=== PATIENT | female | born 1970 | race Caucasian/White ===

== ENCOUNTER 2023-01-24 13:41 | Outpatient (OUT) | payer OTHER, SELFPAY ==
--- NOTE | 2023-01-24 17:03 | CONS_ITS ---
CONSULTATION DATE: ??01/24/2023 TO:? Patience Jimenez M.D. HISTORY:? Patient returns today complaining of 2-5/10 pain in the right hip and buttock area.? She describes the pain as being dull, achy in character with a sharp component.? She describes a burning sensation and sensitivity to even light touch overlying the right hip and buttock area.? She reports the pain otherwise, in general, increased with activities such as standing and walking and performing transitioning maneuvers.? Patient feels most comfortable in the semi-recumbent position.? Denies any change in bowel and bladder habits or new sensorimotor changes in the lower extremities. MEDICATION:? Includes baclofen 10 mg pills, half a pill up to .b.i.d. EXAM:? Notable for patient having no clinical radiculopathy or myelopathy involving the lower extremities.? Patient had dysesthesia and hyperesthesia along the distribution of the right superior gluteal nerve with severe spasm of the right gluteus medius muscle.? IMPRESSION:? 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 RECOMMENDATIONS: ?I recommend physical therapy.? Increase the baclofen 10 mg pills, half a pill t.i.d.? We will see the patient back in the office in six weeks? time or sooner if needed. As part of providing excellent, safe, comprehensive care, the following was completed at our patient's visit: 1. A medication reconciliation and review to ensure accurate knowledge of current/active medications, including asking our patients to inform us about any [id number]-heulhoz medications or herbal remedies/nutritional supplements/alternative remedies. 2. A review to specifically ensure our patients have had annual screening for: elevated body mass index (BMI, see intake chart for exact total), tobacco use, screening for depression, and screening for unhealthy alcohol use.? When screening is concerning, patients are provided with education and the specific recommendation to discuss the concerning health issue and treatment options with their primary care provider. OSMIN
== END 2023-01-24 13:42 | disposition home or self-care (01) ==
LOC: PM 13:42
PROVIDERS: PCP Family Medicine; Visit Provider Anesthesiology Pain Medicine
DX: M25.551 Pain in right hip (principal); G89.29 Other chronic pain; G58.8 Other specified mononeuropathies; M62.838 Other muscle spasm
CPT/HCPCS: G0463

== ENCOUNTER 2023-01-25 15:32 | Outpatient (RCR) | payer OTHER, SELFPAY | END 2023-03-01 17:00 | disposition home or self-care (01) | LOC: PT 15:32 | PROVIDERS: PCP Family Medicine; Visit Provider Nurse Practitioner | DX: M47.816 Spondylosis without myelopathy or radiculopathy, lumbar region (principal) | CPT/HCPCS: 97110; 97140; 97161 ==

== ENCOUNTER 2023-02-01 08:03 | Emergency (ER) | payer OTHER, SELFPAY ==
[2023-02-01 08:10] VITALS: BP 159/95; PULSE 78; RESP 18; TEMP 36.5; O2SAT 98; BMI 23.0
--- NOTE | 2023-02-01 08:23 | PC.NURSE ---
Pt recently traveled to [place] by plane and drove back to [place]. Pt states on her way back they stopped at [place] and hiked. Pt is having bilateral calf pain at this time. pt states she is in shape and should not have this calf pain for this long. Pt concerned about blood clots in her calfs.
--- NOTE | 2023-02-01 08:24 | US_ITS ---
The [address] [address] Patient Name: BEATRIZ SMITH MRN: [id number] date: 1970 Sex: F Assigned Patient Location: ED.MAIN Current Patient Location: ER Accession/Order Number: [id number] Exam Date: 02/01/2023 08:40 Report Date: 02/01/2023 09:28 At the request of: AWILDA CAMPOS Procedure: US venous doppler LE BI ULTRASOUND OF BILATERAL LOWER EXTREMITY VENOUS SYSTEMS WITH DUPLEX, 02/01/2023 8:40 AM EDT INDICATION: Bilateral calf pain x3 days COMPARISON: No prior lower extremity ultrasound available for comparison at the time of this dictation. TECHNIQUE: Multi-planar real-time ultrasonography of the bilateral lower extremity venous systems using grayscale imaging supplemented by color Doppler. Augmentation and compression maneuvers were utilized as needed. FINDINGS: The saphenofemoral junction, common femoral, profunda femoral, superficial femoral, popliteal, posterior tibial, anterior tibial and peroneal veins are fully compressible with anterograde flow. Respiratory variation and waveform response to augmentation within normal limits. US/US venous doppler LE BI IMPRESSION: Negative for deep vein thrombosis in either lower extremity. Electronically authenticated by: DONA SANTOS Date: 02/01/2023 09:28
--- NOTE | 2023-02-01 08:25 | ED.EXTPRO1 ---
HPI - Extremity Problem General Chief complaint: Extremity Problem, Nontraumatic Stated complaint: lower extremity pain Time Seen by Provider: 02/01/23 08:20 Source: patient Mode of arrival: walk-in Limitations: no limitations History of Present Illness HPI Narrative: The patient to us after she had 40 hours trip driving from [place] and she started having bilateral calf pain, she did mention that she was not drinking enough water and she did stop in [place] of [place] But the patient mentioned that she exercise regularly and she usually does not get calf pain Related Data Home Medications Medication Instructions Recorded Confirmed baclofen 10 mg oral granules in 10 mg PO TID 02/01/23 02/01/23 packet Allergies Allergy/AdvReac Type Severity Reaction Status Date / Time No Known Drug Allergies Allergy Verified 02/01/23 08:16 Review of Systems ROS Status of ROS 10 or more systems reviewed and unremarkable except as noted in history and below Exam Narrative Exam Narrative: Nurses notes and vital signs reviewed and patient is not hypoxic. General: Well-appearing and in no apparent distress. Skin: Warm, dry, no pallor noted. No rash. Head: Normocephalic, atraumatic. Neck: Supple, non-tender. Eye: Pupils are equal, round and EOMI. No scleral icterus. Ears, Nose, Mouth, and Throat: TM are clear, no nasal mucosal hypertrophy. Oral mucosa is moist, no posterior oropharynx erythema, uvula is mid-line Cardiovascular: Regular Rate and Rhythm without murmur, gallop or rub. Respiratory: No accessory muscle use or respiratory distress. Lungs are clear to auscultation, no wheezing, rales or rhonchi Chest Wall: no tenderness Back: No midline thoracic or lumbar vertebral tenderness. No CVA tenderness Musculoskeletal: normal ROM, no calf or popliteal tenderness, no lower extremity edema/swelling GI: Abdomen is soft, non-distended. Normal bowel sounds. No masses appreciated. No tenderness to palpation. No rebound, guarding, or rigidity noted. Neurological: A&O x4. No cranial nerve dysfunction observed. No truncal ataxia. Moves all extremities. Sensation intact. Psychiatric: Cooperative and interactive. Normal mood and affect. Constitutional Vital Signs, click to edit/add: Last Vital Signs Temp 97.7 F 02/01/23 08:10 Pulse 78 02/01/23 08:10 Resp 18 02/01/23 08:10 BP 159/95 H 02/01/23 08:10 Pulse Ox 98 02/01/23 08:10 O2 Del Method Room Air 02/01/23 08:10 Course Vital Signs Vital signs: Vital Signs Temperature 97.7 F 02/01/23 08:10 Pulse Rate 78 02/01/23 08:10 Respiratory Rate 18 02/01/23 08:10 Blood Pressure 159/95 H 02/01/23 08:10 Pulse Oximetry 98 02/01/23 08:10 Oxygen Delivery Method Room Air 02/01/23 08:10 Temperature 97.7 F 02/01/23 08:10 Pulse Rate 78 02/01/23 08:10 Respiratory Rate 18 02/01/23 08:10 Blood Pressure 159/95 H 02/01/23 08:10 Pulse Oximetry 98 02/01/23 08:10 Oxygen Delivery Method Room Air 02/01/23 08:10 MDM - Extremity (Nontraumatic) MDM Narrative Medical decision making narrative: The patient ultrasound venous of lower extremity showed no acute pathology and the patient right now will be treated as supportive care for possible sprain with ibuprofen The patient was instructed on hydration The patient is to follow up with primary care physician in next 2-3 days or to return to the emergency department should any of the signs or symptoms worsen or new symptoms develop. The patient agrees with the following Diagnosis and Treatment plan and the patient will be discharged home. Discharge Plan Discharge Chief Complaint: Extremity Problem, Nontraumatic Clinical Impression: Bilateral calf pain Patient Disposition: Home, Self-Care Time of Disposition Decision: 09:56 Condition: Good Mode of Transportation: Private Vehicle Prescriptions / Home Meds: No Action baclofen 10 mg granules in packet 10 mg PO TID Instructions: Musculoskeletal Pain (ED) Stand Alone Forms: Portal Instructions Referrals: Patience Jimenez MD [Primary Care Provider] - 1 week Discharge Date/Time: 02/01/23 10:11
== END 2023-02-01 10:11 | disposition home or self-care (01) ==
PROVIDERS: Emergency Provider Emergency Medicine; PCP Family Medicine
DX: M79.662 Pain in left lower leg (principal); M79.661 Pain in right lower leg
CPT/HCPCS: 93970; 99284

== ENCOUNTER 2023-03-16 21:42 | Outpatient (REF) | payer OTHER, SELFPAY ==
[2023-03-21 15:10] LABS: Age Gdln ACOG Testing Note (.); HPV Aptima Negative (Negative); IGP, Aptima HPV, rfx 16/18,45 Note (.)
== END 2023-03-16 21:43 | disposition home or self-care (01) ==
LOC: LAB 21:42
PROVIDERS: PCP Family Medicine; Visit Provider Physician Assistant
DX: Z01.419 Encounter for gynecological examination (general) (routine) without abnormal findings (principal)
CPT/HCPCS: 87624; G0145

== ENCOUNTER 2023-04-11 13:55 | Outpatient (OUT) | payer OTHER, SELFPAY ==
--- NOTE | 2023-04-11 | CONS_ITS ---
CONSULTATION DATE: ??04/11/2023 TO:? Patience Jimenez M.D. CHIEF COMPLAINT:? Includes right sided hip pain, buttock pain.? Patient reports the pain as being 2-7/10, right buttock and gluteal area, described as a burning type of pain with a sharp component, increased with activities such as standing, walking and performing transitioning maneuvers.? She feels most comfortable in the semi-recumbent position.? Denies any change in bowel and bladder habits or new sensorimotor changes in the lower extremities EXAMINATION:? Notable for patient having positive right sided FABERs.? Dysesthesia and hypoesthesia were noted over the distribution of the right superior gluteal nerve and a fair amount of myofascial spasm involving the right gluteus medius muscle.? IMPRESSION:? Our impression is patient has chronic pain secondary to right hip joint related pain, right superior gluteal nerve neuritis and myofascial dysfunction.? RECOMMENDATIONS:? I have increased the baclofen, 10 mg pills, one pill t.i.d.? Proceed with a right hip x-ray and a diagnostic right superior gluteal nerve injection under fluoroscopic guidance. As part of providing excellent, safe, comprehensive care, the following was completed at our patient's visit: 1. A medication reconciliation and review to ensure accurate knowledge of current/active medications, including asking our patients to inform us about any vlrr-fwt-jhijsay medications or herbal remedies/nutritional supplements/alternative remedies. 2. A review to specifically ensure our patients have had annual screening for: elevated body mass index (BMI, see intake chart for exact total), tobacco use, screening for depression, and screening for unhealthy alcohol use.? When screening is concerning, patients are provided with education and the specific recommendation to discuss the concerning health issue and treatment options with their primary care provider. OSMIN
== END 2023-04-11 13:56 | disposition home or self-care (01) ==
LOC: PM 13:55
PROVIDERS: PCP Family Medicine; Visit Provider Anesthesiology Pain Medicine
DX: M25.551 Pain in right hip (principal); M16.11 Unilateral primary osteoarthritis, right hip; G89.29 Other chronic pain; G58.8 Other specified mononeuropathies
CPT/HCPCS: 73502; G0463

== ENCOUNTER 2023-04-11 14:46 | Outpatient (OUT) | payer OTHER, SELFPAY ==
--- NOTE | 2023-04-11 15:18 | XR_ITS ---
The [address] [address] Patient Name: BEATRIZ SMITH MRN: [id number] date: 1970 Sex: F Assigned Patient Location: [facility] Current Patient Location: Accession/Order Number: [id number] Exam Date: 04/11/2023 15:10 Report Date: 04/11/2023 21:34 At the request of: RACHEL HUERTA Procedure: XR hip RT min 2V EXAMINATION: XR hip RT min 2V, 04/11/2023 8:31 PM CDT INDICATION: Right hip pain TECHNIQUE: 3 views COMPARISON(S): None available FINDINGS: There is no fracture or malalignment. Mild osteoarthritis of the right hip joint without significant joint space loss. Normal bone mineralization. Pubic symphysis and right sacroiliac joint are congruent with mild degenerative changes. Subtle soft tissue mineralization near the greater trochanter and ischium which could represent hydroxyapatite deposition or chronic tendinopathy. XR/XR hip RT min 2V IMPRESSION: No acute osseous findings. Mild right hip osteoarthritis and other chronic findings as detailed above. Electronically authenticated by: JOSÉ FORREST Date: 04/11/2023 21:34
== END 2023-04-11 14:47 | disposition home or self-care (01) ==
LOC: RAD 14:49
PROVIDERS: PCP Family Medicine; Visit Provider Anesthesiology Pain Medicine
DX: M25.551 Pain in right hip (principal); M16.11 Unilateral primary osteoarthritis, right hip
CPT/HCPCS: 73502

== ENCOUNTER 2023-04-25 09:00 | Day surgery (SDC) | payer OTHER, SELFPAY ==
[2023-04-25 09:22] VITALS: BP 143/90; PULSE 78; RESP 16; TEMP 36.5; O2SAT 99
[2023-04-25] MEDS: BUPIVACAINE HCL 0.25% PF 25 MG/10 ML VIAL 4 ML INJ (10:36)
--- NOTE | 2023-04-25 10:49 | W.PM.PROCNOT ---
Date of procedure: 04/25/23 Pre-op diagnosis: Right Superior Gluteal Neuritis Post-op diagnosis: same as pre-op Procedure: Right Superior Gluteal nerve injection, diagnostic Performed under fluoroscopic guidance Immediate complications none Anesthesia: none Solution used for injection: In each syringe, 2 milliliters 0.25% Marcaine 2.5 mL is used for injection for each side Time out process compliant After informed consent obtained patient was brought to the procedure room placed in the prone position skin overlying the area was prepped and draped in a sterile fashion using betadine. 25 gauge spinal needle Insert over each of the target areas identified in fluoroscopy corresponding needles were advanced Under fluoroscopic guidance until the target/targets encountered , no indication of intravascular or Intraneuronal needle tip placement. Solution injected .needles removed post procedurally. patient transferred to recovery room in stable condition to be discharged home after meeting criteria Anesthesia: Local Surgeon: Jose Guadalupe Costa Condition: stable
== END 2023-04-25 10:40 | disposition home or self-care (01) ==
LOC: SURGOUT 09:00
PROVIDERS: PCP Family Medicine; Visit Provider Anesthesiology Pain Medicine
DX: G58.8 Other specified mononeuropathies (principal)
CPT/HCPCS: 64450; 77002

== ENCOUNTER 2023-05-10 08:45 | Outpatient (OUT) | payer OTHER, SELFPAY ==
--- NOTE | 2023-05-10 09:14 | P.CN_ITS ---
Consult Note: HPI Data of Consult Patient: known to practice within the last 3 years Requesting Physician: Skye Marc NP Primary Care Provider: Patience Jimenez MD Consult Narrative Reason for consult: f/u Narrative: Socorro Gallagher a pleasant 52 year old female presents for evaluation and management of right buttock and intermittent right calf pain. Today rating pain 1-2 burning discomfort. Pain is relieved with sleep, standing/walking, and OTC naproxen. Pain is worse with lying down and sitting. Patient had 50% ongoing relief in right buttock from superior gluteal nerve block. cc:: CC: Skye Marc NP Review of Systems ROS Status of ROS 10 or more systems reviewed and unremarkable except as noted in history and below PFSH PFSH Surgical History History of foot surgery ?Z98.890 - Other specified postprocedural states (ICD-10) History of hysterectomy ?Z90.710 - Acquired absence of both cervix and uterus (ICD-10) Previous section ?Z98.891 - History of uterine scar from previous surgery (ICD-10) Meds Home Medications and Allergies Home Medications Medication Instructions Recorded Confirmed Type baclofen 10 mg oral granules in 10 mg PO TID 02/01/23 04/25/23 History packet Allergies Allergy/AdvReac Type Severity Reaction Status Date / Time No Known Drug Allergies Allergy Verified 04/25/23 09:20 Exam Constitutional Documenting provider has reviewed patient's vital signs: yes Common normals: no apparent distress, oriented x3, healthy appearing, alert and well nourished General appearance: cooperative HENMT Common normals: normocephalic, hearing grossly normal bilaterally and moist oral mucous membranes Head and scalp: normocephalic Eye Common normals: PERRL Pupil: PERRL Neck & C-Spine Common normals: full ROM General: normal visual inspection Chest Common normals: inspection of chest normal Respiratory Common normals: normal respiratory effort, no retractions and no use of accessory muscles Back & Pelvis Common normals: thoracic and lumbar spine normal to inspection, thoraco-lumbar ROM normal and straight leg raise negative bilaterally Other: pain over right piriformis muscle group, worse with deep palpation no radiculopathy negative facet loading no back pain Back image (female): 1. Neuro Common normals: oriented x3, CN's II-XII intact bilaterally, moves all extremities, no focal motor deficits, no sensory deficits noted and deep tendon reflexes 2+ bilaterally Sensorium/orientation: alert Motor exam: strength 5/5 throughout and no movement abnormalities noted Psych Common normals: mental status grossly normal, thought process normal, cooperative, affect normal, speech normal and activity/motor behavior normal Speech: normal speech Thought process: normal thought process Results Additional Findings Additional findings: I have checked an [facility] report on this patient today and there are no ab errancies noted in the prescribing history.?? A drug screen was completed and reviewed within the last year, and if there has not been a drug screen completed we ordered one today to monitor higher risk, state monitored pain medication use. As part of providing excellent, safe, comprehensive care, the following was completed at our patient's visit: 1. A medication reconciliation and review to ensure accurate knowledge of current/active medications, including asking our patients to inform us about any [id number] medications or herbal remedies/nutritional supplements/alternative remedies. 2. A review to specifically ensure our patients have had annual screening for: elevated body mass index (BMI), tobacco use, screening for depression, and screening for unhealthy alcohol use. When screening is concerning, patients are provided with education and the specific recommendation to discuss the concerning health issue and treatment options with their primary care provider. Assessment and Plan Assessment and Plan (1) Piriformis syndrome of right side: (2) Neuritis: Plan continue OTC naproxen PRN continue HEP, will talk to Physical therapist about PS exercises. Was doing these in PT fu prn
== END 2023-05-10 08:46 | disposition home or self-care (01) ==
LOC: PM 08:52
PROVIDERS: PCP Family Medicine; Visit Provider Nurse Practitioner
DX: G57.01 Lesion of sciatic nerve, right lower limb (principal); M79.2 Neuralgia and neuritis, unspecified
CPT/HCPCS: G0463

== ENCOUNTER 2023-10-13 08:01 | Outpatient (OUT) | payer OTHER, SELFPAY ==
--- OUTSIDE RECORDS SUMMARY | 2023-10-13 08:19 | XMS_ITS | CCD ---
Author Organization [facility] Care Team Providers Care Senior [employer]form[employer] Developer Name Role Phone DR PATIENCE MORTENSEN Primary Care Unavailable LAKSHMIPATHY ., NARENDALBARO Admitting Mariella vailable LAKAURELIANOPATHY ., NARENDREINAATH Consulting Mariella vailable DEANAN ., JOSE GUADALUPE Attending Mariella LORRI Rai Admitting Unavailable LORRI BERRY Attending Unavailable DR CHRISTINA ROBLERO Consulting Unavailable DR PATIENCE MORTENSEN Primary Care Unavailable LORRI BERRY Consulting Unavailable Unavailable Primary Care Provider UnavailMD Patience Ramirez Primary Care Provider MD Jose Guadalupe Costa Attending Provider Unavailable LINDA MUÑOZ Referring Unavailable MARSHA LANDA Attending Unavailable Oscar MCKEON Attending Unavailable Jose Guadalupe Costa Attending Unava ilable Deanna, Jose Guadalupe Admitting Unava ilable Patience Mortensen Primary Care Unavailable Medications Current Medications Medication Drug Class(es) Dates Sig (Normalized) Sig (Original) busPIRone hydrochloride 5 mg oral tablet (2 sources) Start: 09-14-2023 End: 10-12-2023 take 5 mg by mouth twice daily Buspirone Active 5 MG PO Twice daily 180 90 October 12, 2023 8:51am estradiol 0.5 mg oral tablet (1 source) Estrogen Start: 09-14-2023 take 0.5 mg by mouth once daily Estradiol Active 0.5 MG PO Daily September 14, 2023 1:00am LORazepam 0.5 mg oral tablet (3 sources) Benzodiazepine Start: 09-14-2023 take 1 tablet by mouth once daily Lorazepam (Ativan) 0.5 mg tablet Active 0.5 MG PO Daily 15 15 September 14, 2023 1:00am Start: 01-30-2023 LORazepam (ATI VAN) 0.5 mg Take 0.5 mg by mouth. 0 01/30/2023 Active Comment on above: Take 0.5 mg by mouth . predniSONE 50 mg oral tablet (1 source) Start: 03-16-2023 End: 03-21-2023 predniSONE (DELTASONE) 50 mg Take 50 mg by mouth. 0 03/16/2023 03/21/2023 Active Comment on above: Take 50 mg by mouth. Completed/Discontinued Medications Medication Drug Class(es) Dates Sig (Normalized) Sig (Original) baclofen 10 mg oral tablet (3 sources) gamma-Aminobutyri c Acid-ergic Agonist Start: 09-14-2023 End: 10-12-2023 take 10 mg by mouth once daily Baclofen Discontinued 10 MG PO Daily September 14, 2023 1:00am October 12, 2023 8:30am Start: 03-07-2023 take 0.5 tablet by m outh three times daily baclofen 10 mg tablet TAKE 1/2 TABLET BY MOUTH 3 TIMES A DAY 0 03/07/2023 Active Comment on above: TAKE 1/2 TABLET BY M OUTH 3 TIMES A DAY Problems Active Problems Problem Classification Problem Date Documented Da te Episodic/Chronic Anxiety disorders (3 sources) Anxiety; Translations: [Anxiety disorder, unspecified] Onset: 01-06-2015 09-14-2023 Chronic Cardiac dysrhythmias (2 sources) Palpitations; Translations: [Palpitations] 10-12-2023 Episodic Other connective tissue disease (3 sources) Pain in right leg; Translations: [PAIN IN RIGHT LEG] Onset: 10-20-2022 Episodic Other connective tissue disease (1 source) Pain in right lower limb; Translations: [Pain in right leg] 06-21-2023 Episodic Other nervous system disorders (1 source) Right-sided piriformis syndrome; Translations: [Lesion of sciatic nerve, right lower limb] 06-21-2023 Chronic Other nervous system disorders (1 source) Paresthesia of lower extremity; Translations: [Anesthesia of skin] 06-21-2023 Episodic Other non-traumatic joint disorders (4 sources) Pain in right ankle and joints of right foot; Translations: [PAIN IN RIGHT ANKLE] Onset: 10-11-2022 Episodic Other screening for suspected conditions (not mental disorders or infectious disease) (3 sources) Encounter for screening for lipoid disorders; Translations: [Screening for lipoid disorders] 10-12-2023 Episodic Residual codes; unclassified (4 sources) Patient encounter status; Translations: [Encounter for cosmetic surgery] 03-20-2023 Episodic Past or Other Problems Problem Classification Problem Date Documented Da te Episodic/Chronic Spondylosis; intervertebral disc disorders; other back problems (2 sources) Radiculopathy, lumbar region; Translations: [RADICULOPATHY LUMBAR REGION] Onset: 10-26-2022 Episodic Results Test Name Value Interpretation Reference Range Facil ity CNOVon 06-21-2023 CNOV Office Visit ([facility] ) GALLAGHERSOCORRO EWING Isidro ([id number]) 1970 F Date Time Provider Department 06/21/23 8:00 AM MARSHA LANDA [facility] During your visit today, we recorded the following information about you: Weight Height 64 kg 1.6 m Marsha Landa APRN.[facility] 06/21/2023 9:30 AM Signed Spine Care Path Radicular Leg Pain - Chronic (> 12 weeks) Initial Exam SUBJECTIVE HISTORY OF PRESENT ILLNESS: Socorrodemar Gallagher is a 52 year old female who presents with a chief complaint of right buttocks and leg pain and is self-referred. Patient presents with right sided buttocks and leg pain x 4 years. Denies accident/injury Prior to today's appointment she has been under the care of pain management in [facility] where she recently underwent a right gluteal nerve block without improvement in symptoms. She states that at postinjection follow-up she was offered a piriformis injection but is reluctant to proceed. She reports that she recently had an EMG completed. EMG results were not available at time of today's appointment. 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 Pain rated 2/10 today at worst 6/10 Pain worse with sitting, work, laying flat , Pain improved with standing, laying on side, activity , baclofen,heat, ice ,naproxen, Interventions: injection - gluteal, medications, standing desk at work, heat, ice, Medications: Baclofen, ibuprofen, naproxen , prednisone Physical Therapy: Spring 2022 attended at [facility] , she states sessions were not effective Treating Physicians: Dr Mckeon - Plastic Surgery Dr. Mortensen - PCP Linda Muñoz PA-C - OBGYN Dr. Costa - Pain management History of Spine Injections/Surgery: 04/25/2023 Gluteal nerve injection, diagnostic - no relief Other Issues Addressed at the Visit Today: None. Precipitating Event: None PAIN EVALUATION 06/19/2023201106/21/2023 0752 Pain Level: 3 2 worse in the morning and sitting for too long Pain Location: Foot-Right Back-Lower radiates to R leg Description: Aching;Burning;Dull;N umbness;Tingling Burning Numbness and tingling on R leg Duration Units: Months Years got worse in the last year Frequency: Continuous Continuous Intervention/Comfort measure: Medication;Reposition ;Positioning -- Litigation: No Workers' Compensation: No YELLOW AND BLUE FLAGS No-Neg Attitude; Back Pain is Disabling No-Avoiding Activity (for Fear of Pain) No-Depression or Anxiety Disorders No-Social Problems No-Substance Use Disorder No-Job Dissatisfaction No-Financial Disincentives Patient Entered Questionnaires Spine Questions 06/19/2023 Pain Location: Other Pain Duration: 1 to 5 years Pain over last 6 months: Every day or nearly every day in the past 6 months Symptoms from neck/cervical spine: No Employment Status: Working now Involved in law suit/legal claim: No Spine Red Flags 06/19/2023 Any type of cancer: No Unexplained fever: No Bowel or bladder disfunction: No Unintentional weight loss: No Osteoporosis: No PROMIS Score Percentiles Physical Health 06/19/2023 Physical Function Percentile 38 Sleep Percentile 54 Fatigue Percentile 79 Pain Interference Percentile 18* PROMIS SOCIAL ROLE SCORE 06/19/2023 Social Role Satisfaction Percentile 27* PROMIS Global Health Scale 03/16/2023 06/19/2023 Physical Health Percentile 66 66 Mental Health Percentile 34 34 Percentiles provide an indication of how the patient's score ranks in relation to the general population. Higher percentile rankings indicate better function/quality of life. 50th percentile is the average of the general population and indicates half of respondents had a worse score. Depression Screening: PHQ-9 06/19/2023 Score 4 PHQ-9 Self Harm 06/19/2023 Question 9 Not at all PHQ-9 Self-Harm (Item 9) response options: 0 Not at all 1 Several days 2 More than half the days 3 Nearly every day PHQ-9 Levels: 0-4 No - mild depression 5-9 Mild depression 10-14 Moderate depression 15-19 Moderately severe depression 20-27 Severe depression There is no problem list on file for this patient. No past medical history on file. No past surgical history on file. No family history on file. ALLERGIES Not on File CURRENT MEDICATIONS: baclofen 10 mg tablet TAKE 1/2 TABLET BY MOUTH 3 TIMES A DAY LORazepam (ATIVAN) 0.5 mg Take 0.5 mg by mouth. REVIEW OF SYSTEMS: PAIN ASSESSMENT: See HPI. GENERAL: Denies fever, chills malaise and weight loss. HEENT: No recent change in vision or hearing. CARDIOVASCULAR: Denies christina (more content not included)... Normal [facility] XR pre/post mri xrayon 03-23 XR pre/post mri xray [facility] [place] [address] MRI Report Signed Patient: Missy Gallagher MR#: [id number] 165 : 1970 Acct:[id number] Age/Sex: 52 / F ADM Date: 03/23/23 Loc: [facility] Room: Type: [facility] Attending Dr: Jose Guadalupe Costa MD Copies to: Jose Guadalupe Costa Ordering Provider: Jose Guadalupe Costa Date of Service: 03/23/23 MR/MR lumbar spine wo con: LUMBAR RADICULOPATHY ([id number]) XR/XR pre/post mri xray: LUMBAR MRI MR lumbar spine wo con, XR pre/post mri xray 03/23/2023 9:50 AM SIGNS AND SYMPTOMS: Back pain, right lower extremity radiculopathy PROTOCOL: Multiplanar multisequence MR images of the lumbar spine were obtained without IV contrast. Frontal and lateral radiograph of the lumbar spine were obtained. COMPARISON: 12/16/2019 FINDINGS: Radiographs of the lumbar spine: The bones are in anatomic alignment. There is preservation of vertebral body heights. There is minimal disc height loss at L4-5 and L5-S1. There is no fracture or subluxation. Mild degenerative changes are noted in the sacroiliac joints. MRI lumbar spine: Disc height loss and alignment is as noted above. There is preservation of vertebral body heights. The marrow signal is within normal limits. The conus terminates at the inferior endplate of the L1 vertebral body level. No epidural or paraspinous fluid collection is appreciated. There is a slightly larger 3.7 cm cystic structure within the left hemipelvis. At T12-L1: There is a normal disc, central canal, and neural foramen. At L1-L2: There is a normal disc, central canal, and neural foramen. At L2-L3: There is a normal disc, central canal, and neural foramen. At L3-L4: There is a normal disc, central canal, and neural foramen. At L4-L5: There is a broad-based disc bulge with mild bilateral neural foraminal narrowing. No significant spinal canal narrowing. This is unchanged. At L5-S1: There is a mild broad-based disc bulge with minimal bilateral neural foraminal narrowing. No significant spinal canal narrowing. There is a similar central T2 hyperintense annular fissure. This is unchanged. MR/MR lumbar spine wo con IMPRESSION: At L4-L5: There is a broad-based disc bulge with mild bilateral neural foraminal narrowing. No significant spinal canal narrowing. This is unchanged. At L5-S1: There is a mild broad-based disc bulge with minimal bilateral neural foraminal narrowing. No significant spinal canal narrowing. There is a similar central T2 hyperintense annular fissure. This is unchanged. There is a slightly larger 3.7 cm cystic structure within the left hemipelvis. Impression dictated by: Austin Marsh M.D.03/23/2023 3:17 PM Dictation Location: [place] [address] Transcribed By: JIMMY 03/23/231516 Dictated By: Austin Marsh II, MD 03/23/23 151 Signed By: 03/23/23 1517 [facility] CNCOon 03-20-2023 CNCO Letter Text [facility] CNOVon 03-20-2023 CNOV Office Visit ([facility] ) SOCORRO GALLAGHER ([id number]) 1970 F Date Time Provider Department 03/20/23 9:00 AM Oscar MCKEON [facility] During your visit today, we recorded the following information about you: Weight Height 61.2 kg 1.6 m Oscar Mckeon MD 03/20/2023 11:53 AM Signed Ms. Socorro Gallagher is a 52 year old, female presents for consultation for body contouring. The main complaint is skin laxity and excess fat. Area of concern - abdomen and flanks. Socorro has 3 children with ages - 26,24,21. Plans of having children in the immediate future: No. Prior surgery in the Abdomen: Yes- x 3, she noted that during her last , the surgeon also removed skin . Leads an active lifestyle: Yes Prior weight loss: No. Prior bariatric surgery; No Amount of weight loss: She specifically noted that the stretch huntley and skin laxity is of minimal concern, she wants reduction in bulk or volume in her mid-section. Smoking history: No No past medical history on file. No past surgical history on file. Exam: Ht 5' 3 (1.60m) Wt 135 lb (61.2kg) BMI 23.92 kg/(m2). Minimal musculo-fascial laxity and skin laxity, more lower abdomen vs upper abdomen. Pinch test: Upper abdomen ~5cm Flanks ~6cm each side. Socorro was given a discussion on the different body contouring options - abdominoplasty vs. mini-abdominoplasty vs. liposuction vs. a combination of the different procedures. I discussed the different liposuction modalities, the difference between traditional tumescent liposuction vs. ultrasonic liposuction vs. power-assisted liposuction vs. laser liposuction. I discussed the difference between liposuction alone vs. Skin-excision surgery, eg, abdominoplasty. I noted that there will be more comprehensive tightening with skin excision surgery. I noted that combining abdominoplasty with liposuction can improve the results at the expense of a more invasive procedure with longer anesthesia, slightly increased morbidity. I marked on her skin the areas to be treated with liposuction; the access sites and anticipated scars and she concurred with the treatment areas. I discussed the risks and complications of the procedure. I discussed the incisions to be used and the anticipated scar. Discussed the anesthesia to be used: Local. Discussed the anticipated postop course. Recommendation: Liposuction; local; outpatient - abdomen, +/- flanks. Oscar Mckeon MD Allergies As of Date: 03/20/2023 (Not on File) Date Reviewed: 03/20/2023 Reviewed by: Audrey Granado LPN - Fully Assessed Reason for Visit: Consult [173] Primary Visit Diagnosis:Encounter for cosmetic surgery [Z41.1] Prescriptions as of 03/20/2023 - baclofen 10 mg tablet TAKE 1/2 TABLET BY MOUTH 3 TIMES A DAY - predniSONE (DELTASONE) 50 mg Take 50 mg by mouth. - LORazepam (ATIVAN) 0.5 mg Take 0.5 mg by mouth. Problem List As Of Date: 03/20/2023 (None) Encounter Status:Closed by Oscar MCKEON on 03/20/[address] [facility] BI MAMMOGRAM SCREENING SHANNON Kaur 03-16-2023 BI MAMMOGRAM SCREENING BILATERAL This is a summary report. The complete report is available in the patient's medical record. If you cannot access the medical record, please contact the sending organization for a detailed fax or copy. EXAMINATION: BI MAMMOGRAM SCREENING BILATERAL CLINICAL HISTORY: Screening for Breast cancer COMPARISON: Prior from 2016. RESULT: 3-D tomosynthesis imaging of the bilateral breast(s) was performed. Density: Scattered fibroglandular density [2] There are no suspicious masses or asymmetries, areas of architectural distortion or suspicious areas of microcalcifications. IMPRESSION: BIRADS 1 - Negative Recommended follow-up: Routine Screening Mamm Board Certified Radiologists. Accredited by the ACR and FDA. MAMMOGRAPHY IS VERY IMPORTANT TO YOUR HEALTH. THE [place] [employer] GUIDELINES RECOMMEND THAT WOMEN 40 YEARS OF AGE AND OLDER SHOULD HAVE A MAMMOGRAM EVERY YEAR. A REMINDER LETTER WILL BE SENT AT THE APPROPRIATE TIME. THIS FACILITY UTILIZES A REMINDER SYSTEM TO ENSURE ALL PATIENTS RECEIVE REMINDER NOTIFICATIONS AT THE APPROPRIATE TIME BASED ON THE RECOMMENDATIONS OF THIS EXAM. THIS INCLUDES REMINDERS FOR ROUTINE SCREENING MAMMOGRAMS, DIAGNOSTIC MAMMOGRAMS IN WHICH THE PATIENT IS ASKED TO RETURN FOR ADDITIONAL VIEWS, OR OTHER BREAST IMAGING INTERVENTIONS WHEN APPROPRIATE. THE PATIENT WILL BE PLACED IN THE APPROPRIATE REMINDER SYSTEM INCLUDING A REMINDER AT THE APPROPRIATE TIME FOR ANY PENDING ADDITIONAL VIEWS. ELECTRONICALLY SIGNED BY: Travis Miles MD Normal Not Available RAD - Ultrasound Reporton RAD - Ultrasound Report [id number] .00CD:[address] [facility] Coding Summary.on 07-31-2020 Coding Summary. CODING DATE: 07/31/2020 FINAL [facility] DSC STATUS: Home (Routine DC) PAYOR: [facility] [place] APC DESCRIPTION 5373 Level 3 Urology and Related Services ADMIT DX: REASON FOR VISIT DX: R35.0 Frequency of micturition FINAL DX: PRINCIPAL: R35.0 Frequency of micturition SECONDARY: R39.15 Urgency of urination Z87.440 Personal history of urinary (tract) infections F41.1 Generalized anxiety disorder Z87.442 Personal history of urinary calculi PYMT PROC APC STAT DESCRIPTION DOCTOR NAME DATE NOTE: The code number assigned matches the documented diagnosis and / or procedure in the patient's chart. However, the narrative phrase printed from the coding software may appear abbreviated, or result in slightly different terminology. Coded By: So Valle Date Saved: 07/31/2020 12:41 pm [facility] Consent for Procedure/Surger yon 07-30-2020 Consent for Procedure/Surgery [id number]# 1.00CD:[address] [facility] Consent for Treatmenton 07-11 Consent for Treatment [id number] .00CD:127 [facility] Discharge Instructionson Discharge Instructions [id number]# 1.00CD:127 [facility] History and Physicalon 07-30 History and Physical [id number]# 1.00CD:127 [facility] IntraOperative Documentson 0 07-30-2020 IntraOperative Documents [id number]# 1.00CD:127 [facility] Main OR Intraoperative Recor don 07-30-2020 Main OR Intraoperative Record IntraOp Document Type FTURO Summary Primary Physician: Facundo Fam Jr., MD Finalized Date/Time: 07/30/20 13:50:41 Pt. Name: GALLAGHERMISSY/Sex: 1970 Female Med Rec #: [id number] Physician: Facundo Fam Jr., MD Financial #: [id number] Pt. Type: O Room/Bed: / Admit/Disch: 07/30/20 13:06:47 - Institution: Case Times FTURO Entry 1 Patient Times In Room 07/30/20 13:40:00 Out Room 07/30/20 13:51:00 Procedure Times Start 07/30/20 13:46:00 Stop 07/30/20 13:47:00 Anesthesia Times Last Modified By: Colleen STONER, LUKEOR, Diana Avilez 07/30/20 13:50:14 Case Attendance FTURO Entry 1 Entry 2 Entry 3 Case Attendee Sarwat Yadav MD, Facundo Macias RN, LUKEOR, Diana Avilez [employer] Marisela RAMIREZ Role Performed Surgeon - Primary [employer] - Primary Scrub - Primary Time In 07/30/20 13:40:00 07/30/20 13:40:00 07/30/20 13:40:00 Time Out 07/30/20 13:51:00 07/30/20 13:51:00 07/30/20 13:51:00 Procedure CYSTOSCOPY LOCAL WITH CYSTOSCOPY LOCAL WITH CYSTOSCOPY LOCAL WITH URETHRAL DILATION(.) URETHRAL DILATION(.) URETHRAL DILATION(.) Comments Last Modified By: LYNSEY Macias RN, Lou Ann Blank RN, CNOR, Lou Ann Blank RN, CNOR, Lou Ann 07/30/20 13:50:29 07/30/20 13:50:29 07/30/20 13:50:29 Surgical Procedures FTURO Entry 1 Procedure Description Procedure CYSTOSCOPY LOCAL WITH Modifiers . URETHRAL DILATION Surgeon Description CYSTOSCOPY WITH URETHRAL DILATION- - Primary Procedure Yes Primary Surgeon Facundo Fam Jr., MD Start 07/30/20 13:46:00 Stop 07/30/20 13:47:00 Anesthesia Type Local Surgical Service Urology Wound Class 2 - Clean-Contaminated Last Modified By: LYNSEY Macias RN, Lou Ann 07/30/20 13:50:37 General Case Data FTURO Pre-Care Text: Classifies surgical wound, implements aseptic technique, initiates traffic control Entry 1 Case Information OR URO 1 FT Case Level None Wound Class 2 - Clean-Contaminated Specialty Urology Preop Diagnosis RECURRENT UTI Postop Same As Preop Yes Postop Diagnosis RECURRENT UTI Outcomes Met? Yes Last Modified By: LYNSEY Macias RN, Lou Ann 07/30/20 13:41:42 Post-Care Text: The patient is free from signs and symptoms of infection EU IntraOp - FTURO Pre-Care Text: Implements protective measures prior to operative or invasive procedure, confirms identity before the operative or invasive procedure, verifies operative procedure, surgical site, and laterality Entry 1 EU Perioperative Protocols Procedure(s) CYSTOSCOPY LOCAL WITH Patient Identity ID Band Check, Patient URETHRAL DILATION(.) Verified (select at Participation least 2): Consents / H and P HandP, Surgery/Procedure Operative Site N/A Verified Consent Marking Verified Surgical Site Yes Laterality Verified n/a Verified Procedure Verified Yes Correct Patient Yes Position Verified Availability Equipment, Medication Time Out Sarwat Yadav MD, Facundo Felix, Verified (If Participants LUKE Macias RNOR, Diana Applicable) Hamida Avilez CST, Gwen E Time Out Complete 07/30/20 13:44:00 Allergies Reviewed? Yes Allergies Reviewed Self/Patient With Body Position Frog Legged Prep Area perenium Prep Agents Betadine Solution Skin. Condition Warm, Unable to Description clothing on Visualize Additional None Specimens Collected Vitals - EU Blood Pressure 138/89 Pulse 84 bpm Respirations 16 br/min SPO2 EBL 0 IandO - EU Total Intake 0 mL Total Output 0 mL Outcomes Met? Yes Last Modified By: LYNSEY Macias RN, Lou Ann 07/30/20 13:50:29 Post-Care Text: The patient is free from signs and symptoms of injury caused by extraneous objects Case Comments Finalized By: LYNSEY Macias RN, Lou Ann Document Signatures Signed By: LYNSEY Macias RN, Lou Ann 07/30/20 13:[address] [facility] Main OR Preoperative Recordo n 07-30-2020 Main OR Preoperative Record Holding Area Document Type FTURO Summary Primary Physician: Facundo Fam Jr., MD Finalized Date/Time: 07/30/20 13:41:28 Pt. Name: MISSY GALLAGHER./Sex: 1970 Female Med Rec #: [id number] Physician: Facundo Fam Jr., MD Financial #: [id number] Pt. Type: O Room/Bed: / Admit/Disch: 07/30/20 13:06:47 - Institution: Case Times Holding FTURO Pre-Care Text: Verifies consent for planned procedure, identifies individual values and wishes concerning care, includes family members in perioperative teaching Secures patient's records' belongings, and valuables, maintains patient's dignity and privacy, and maintains patient confidentiality Entry 1 In Holding 07/30/20 13:19:00 Outcomes Met? Yes Last Modified By: Missy Thacker LPN 07/30/20 13:19:37 Post-Care Text: The patient participates in decisions affecting his or her perioperative plan of care The patient's right to privacy is maintained Surgery Checklist FTURO Entry 1 Patient Birthday, ID Band Procedure History and Physical, Identification: Check, Patient Verification: Surgical Consent, With Participation Patient NPO after Midnight: n/a Personal Items: Contact Lenses Complaints of Pain: No Skin Integrity Unable to Visualize Vitals - EU Blood Pressure 138/89 Pulse 84 bpm Respirations 16 br/min SPO2 Additional None RN Reviewed Yes Specimens Collected Last Modified By: LYNSEY Macias RN, Lou Ann 07/30/20 13:41:05 General Comments: Temp. 36.4 Finalized By: LYNSEY Macias RN, Lou Ann Document Signatures Signed By: Kirstie ASSISTANT PRODUCTION MANAGERMissy Quevedo 07/30/20 13:22 LYNSEY Macias RN, Lou Ann 07/30/20 13:41 LYNSEY Macias RN, Lou Ann 07/30/20 13:[address] [facility] Operative Reporton Operative Report Patient: MISSY GALLAGHER Age: 49 years Sex: Female : 1970 Associated Diagnoses: None Author: Facundo Fam Jr., MD Procedure Operative Information Pre-Op Dx: Frequency - R35.0, Urgency - R39.15, Hx of UTI's - Z87.440. Post-Op Dx: Same. Anesthesia Type: Local. Procedure: Local Cystoscopy with Urethral Dilation. Complications: None. Risks/Benefits/Inform ed Consent: Surgical risks, benefits, details of the procedure have been explained to the patient, Full informed consent has been obtained. Intraoperative Information Prepped: Patient is brought back to the endoscopy suite, Patient is placed in modified dorso/lithotomy position, Patient prepped in the usual fashion with Betadine solution, 2% Xylocaine Jelly is placed per Urethra, After waiting several minutes the Cystoscope is introduced. The Urethra is: Tight. The Bladder is: Normal, Trabeculated None (0). The ureteral orifices: Show efflux of clear urine. The Urethra was dilated to: 28 Croatian w/ sounds. Devices Implanted: None. Removal: Cystoscope is removed, The patient tolerated it well. Postoperative Information Discharge: Patient is discharged home with antibiotic coverage, Follow up arranged. Normal [facility] Comment on above: Result Comment: Elec tronically Signed By: Facundo Fam Jr., MD\.br\Date and Time Signed: 07/30/20 13:51 EST Patient Educationon 07-30-19 21 Patient Education Cystoscopy with Urethral Dilation ? Voiding after the procedure: there may be some pain, urethral bleeding, burning, urgency, frequency and blood tinged urine following the procedure. These symptoms usually resolve within 2-5 days. Drink the amount of fluid it takes to keep the urine pink to yellow or clear in color. Drinking enough water and fluids will help to ease any discomfort after your procedure. ? If you are having problems that seem out of the ordinary, please call. ? If unable to contact your physician and you feel it is an emergency, go to the nearest emergency room or call 911 ? Diet ? you may resume your normal diet. ? Activity ? you may resume your normal activities ? Call if you have a fever over [address] [facility] Ambulatory Clinical Summaryo n 07-21-2020 Ambulatory Clinical Summary {[id number] Normal [facility] Ambulatory Clinical Summary {[id number] Normal [facility] Patient Educationon 07-21-19 21 Patient Education Urinary Tract Infection Urinary tract infections (UTIs) can develop anywhere along your urinary tract. Your urinary tract is your body's drainage system for removing wastes and extra water. Your urinary tract includes two kidneys, two ureters, a bladder, and a urethra. Your kidneys are a pair of rey-shaped organs. Each kidney is about the size of your fist. They are located below your ribs, one on each side of your spine. CAUSES Infections are caused by microbes, which are microscopic organisms, including fungi, viruses, and bacteria. These organisms are so small that they can only be seen through a microscope. Bacteria are the microbes that most commonly cause UTIs. SYMPTOMS Symptoms of UTIs may vary by age and gender of the patient and by the location of the infection. Symptoms in young women typically include a frequent and intense urge to urinate and a painful, burning feeling in the bladder or urethra during urination. Older women and men are more likely to be tired, shaky, and weak and have muscle aches and abdominal pain. A fever may mean the infection is in your kidneys. Other symptoms of a kidney infection include pain in your back or sides below the ribs, nausea, and vomiting. DIAGNOSIS To diagnose a UTI, your caregiver will ask you about your symptoms. Your caregiver also will ask to provide a urine sample. The urine sample will be tested for bacteria and white blood cells. White blood cells are made by your body to help fight infection. TREATMENT Typically, UTIs can be treated with medication. Because most UTIs are caused by a bacterial infection, they usually can be treated with the use of antibiotics. The choice of antibiotic and length of treatment depend on your symptoms and the type of bacteria causing your infection. HOME CARE INSTRUCTIONS ? If you were prescribed antibiotics, take them exactly as your caregiver instructs you. Finish the medication even if you feel better after you have only taken some of the medication. ? Drink enough water and fluids to keep your urine clear or pale yellow. ? Avoid caffeine, tea, and carbonated beverages. They tend to irritate your bladder. ? Empty your bladder often. Avoid holding urine for long periods of time. ? Empty your bladder before and after sexual intercourse. ? After a bowel movement, women should cleanse from front to back. Use each tissue only once. SEEK MEDICAL CARE IF: ? You have back pain. ? You develop a fever. ? Your symptoms do not begin to resolve within 3 days. SEEK IMMEDIATE MEDICAL CARE IF: ? You have severe back pain or lower abdominal pain. ? You develop chills. ? You have nausea or vomiting. ? You have continued burning or discomfort with urination. MAKE SURE YOU: ? Understand these instructions. ? Will watch your condition. ? Will get help right away if you are not doing well or get worse. Document Released: 04/05/2006 Document Revised: 12/25/2012 Document Reviewed: 08/03/2012 ExitCare? Patient Information ?2013 [employer]. [facility] Urology Office/Clinic Noteon 07-21-2020 Urology Office/Clinic Note Chief Complaint Pt is new and refferred by Dr. Mortensen for recurrent UTI This patient is a 49-year-old female with a history of recurrent urinary tract infection symptoms. She states over the last 12 months has had at least 4 bouts of what she describes as urinary tract infection. These include dysuria frequency fevers and chills. She had shoulder discomfort which sounds like it may be related to antibiotic choice however it is difficult to tell at this point. She is here today for urologic consultation. HPI Staff Pt is new and referred by Dr. Mortensen for recurrent UTI. Pain with urination:Pt denies pain and burning Blood in urine:Pt denies but UA shows Trace- intact Incomplete bladder emptying:Pt denies Frequency:Pt denies Urgency:Pt denies Nocturia:Pt denies Hesitancy:Pt denies Urination requires straining:Pt denies Stream:Pt denies Stream starts and stops:Pt denies Leaking before getting to the restroom:Pt denies Urinary incontinence without sensory awareness:Pt denies Temporarily unable to restrain urination with body movement:Pt denies Wearing pad/Depends:Pt denies Urine odor:Pt denies Flank/Back pain:Pt denies Abdominal pain:Pt denies History of Present Illness Reviewed urine, new pt. paper work, and referral papers from Dr. Mortensen. There have been no associated fever, chills, flank pain or blood in the urine. Pt. denies any pain/burning with urination at this time. Review of Systems ROS - Provider Constitutional: denies weight loss, denies hot flashes. Eyes: denies eye problems. Gastrointestinal: denies nausea, denies vomiting. Cardiovascular: denies chest pain or angina. Integumentary: no dryness Musculoskeletal: denies musculoskeletal symptoms. ENMT: denies otolaryngeal symptoms. Respiratory: no shortness of breath. Heme/Lymph: denies easy bleeding tendency, denies easy bruising tendency. Psychiatric: no confusion, no anxiety. Genitourinary: denies vaginal discharge, denies incontinence, denies dysuria, denies hematuria, denies urinary frequency, denies amenorrhea, denies menorrhagia, denies abnormal bleeding, denies pelvic pain, denies genital sores, and denies decreased libido. Physical Exam Vitals & Measurements HR: 68(Peripheral) RR: 16 BP: 136/84 HT: 162 cm HT: 162.0 cm WT: 68.5 kg WT: 68.5 kg BMI: 26.1 General Appearance: alert , no acute distress, well nourished, well developed female. Head: normocephalic . Eyes: normal orbit and globe. ENMT: normal examination of external ears. Chest: Lungs CTA, respirations non labored . Cardiovascular: regular rate and rhythm. Abdomen: soft, non distended, no tenderness, no mass or organomegaly, no hernia. Genitourinary: bladder nonpalpable, no flank tenderness. Lymph Nodes: unremarkable palpation of the cervical area. Skin: warm, dry, no bruising. Psychiatric: cooperative, affect appropriate for age, normal judgement, euthymic mood. Assessment/Plan This patient has a history of recurrent urinary tract infections. Her last culture from May was inconsistent with a culture proven infection however symptoms are consistent with either urethral stenosis, overactive bladder or some other irritative process. I believe a cystoscopy and urethral dilation be in order. She does have a distant history of renal calculi. She states the last one was over 22 years ago. Is possible she may have an infected stone. Renal ultrasound will be ordered to evaluate this possibility. Preop antibiotics have been ordered and will be sent to the patient's pharmacy. 1. History of recurrent UTIs (Z87.440: Personal history of urinary (tract) infections) New pt. referred by Dr. Mortensen. Pt. states that she has had four infections since 02/2020. UA culture from 05/24/2020 showed <9,000 colonies with bacterial skin contaminants which I informed pt. that it does not indicate a true infection. Will schedule Cysto with UD. The procedure risks, benefits, details, and treatment alternatives have been discussed with the patient. These include bleeding, infection, recurrent scar in over 50%, need for repeat dilation or other procedures, no symptom relief with dilation, among others. Full informed consent has been obtained. Will order Local anesthesia. ABX sent to [facility] in [place]. Ordered: Urology Procedure Order US Renal 2. History of kidney stones (Z87.442: Personal history of urinary calculi) Pt. states 20+ yrs. ago. Pt. is to get a renal u/s to make sure there are no infected stones. Ordered: Urology Procedure Order US Renal Orders: ciprofloxacin, 500 mg = 1 tab(s), Oral, Daily, Take 1 day prio to Cysto and 1 after Cysto completed, X 2 day(s), # 2 tab(s), Refills(s) 0, Pharmacy: [facility]/pharmacy #[id number], 162, cm, 07/21/20 13:48:00 EST, Height/Length Dosing, 68.5, kg, 07/21/20 13:48:00 EST, Weight Dosing Urnls Dip Stick Auto w/o Microscopy POC [id number] I have reviewed the previous health record information and history for this pt. from Dr. Fam. Follow-up With When Contact Information Sarwat Yadav MD, Facundo Felix [address] [place] [address] [place] [address]- Additional Instructions: Patient Education Urinary Tract Infection I, Lety Marino , personally scribed for Dr. Fam on 07/21/2020 14:30:43. . Documentation recorded by the scribe, Lety Marino, accurately reflects the services(s) I performed and decisions made by me. Authenticated by Dr. Fam on 07/21/2020 14:42:17. Problem List/Past Medical History Ongoing Dysuria-frequency syndrome Generalized anxiety disorder History of kidney stones History of recurrent UTIs Plantar fasciitis of right foot Historical No qualifying data Procedure/Surgical History Hysterectomy (11/01/2016). Medications magnesium oxide 400 mg Tab Nature's Bounty Probiotic, Oral, Daily Allergies No Known Allergies Social History Tobacco Never (less than 100 in lifetime) Tobacco Use:. Never Smokeless Tobacco Use:., 07/21/2020 Family History Family history is unknown Lab Results Ambulatory Point of Care Results Bilirubin Urine Dipstick: Negative (07/21/20 13:39:00) Blood Urine Dipstick: Trace-intact (07/21/20 13:39:00) Glucose Urine Dipstick: Negative (07/21/20 13:39:00) Ketones Urine Dipstick: 2+ 40 mg/dl (07/21/20 13:39:00) Leukocytes Urine Dipstick: Negative (07/21/20 13:39:00) Nitrite Urine Dipstick: Negative (07/21/20 13:39:00) Protein Urine Dipstick: Negative (07/21/20 13:39:00) Specific [place] Urine Dipstick: 1.020 (07/21/20 13:39:00) Urine Appearance Urine Dipstick: Clear (07/21/20 13:39:00) Urine Color Urine Dipstick: Yellow (07/21/20 13:39:00) Urobilinogen Urine Dipstick: Normal 0.2-1 EU/dl (07/21/20 13:39:00) pH Urine Dipstick: 7 (07/21/20 13:39:00) Diagnostic Results Review of urine culture dated 05/24/2020 grew less than 9000 colonies of mixed bacterial skin contamination. Patient thinks that this is the last culture that she had performed. She has been treated in the emergency department in the past with symptoms consistent with cystitis. In the past she is been treated with Bactrim DS. [facility] Comment on above: Result Comment: Elec tronically Signed By: Sarwat Yadav MD, Facundo Felix\.br\Date and Time Signed: 07/21/20 14:42 EST\.br\Electronically Co-Signed By: Lety Marino MA\.br\Date and Time Co-Signed: 07/21/20 14:31 EST Vital Signs Date Time Vital Sign Value Performing Clinician Luke manzano 10-12-2023 08:26-0400 Body height 160.02 cm [facility] 10-12-2023 08:26-0400 Body mass index (BMI) [Ratio] 25.1 kg/m2 [facility] 10-12-2023 08:26-0400 Body weight 64.41 kg [facility] 10-12-2023 08:26-0400 Diastolic blood pressure 78 mm[Hg] [facility] 10-12-2023 08:26-0400 Heart rate 78 /min [facility] 10-12-2023 08:26-0400 SaO2% (BldA) [Mass fraction] 98 % [facility] 10-12-2023 08:26-0400 Systolic blood pressure 112 mm[Hg] [facility] 09-14-2023 09:36-0500 Body height 160.02 cm [facility] 09-14-2023 09:36-0500 Body mass index (BMI) [Ratio] 24.6 kg/m2 [facility] 09-14-2023 09:36-0500 Body weight 63.04 kg [facility] 09-14-2023 09:36-0500 Diastolic blood pressure 82 mm[Hg] [facility] 09-14-2023 09:36-0500 Heart rate 88 /min [facility] 09-14-2023 09:36-0500 SaO2% (BldA) [Mass fraction] 98 % [facility] 09-14-2023 09:36-0500 Systolic blood pressure 118 mm[Hg] [facility] 06-21-2023 07:56-0500 Body height 160 cm Marshapratik Landa BOOKKEEPING MACHINE MECHANIC.MOBILE HOMES REPAIRER Work Phone: [facility] 06-21-2023 07:56-0500 Body weight 63.96 kg Marsha Landa BOOKKEEPING MACHINE MECHANIC.MOBILE HOMES REPAIRER Work Phone: [facility] 03-20-2023 08:57-0400 Body height 160 cm NA Ramón AGUIRRE Work Phone: [facility] 03-20-2023 08:57-0400 Body weight 61.24 kg NA Ramón AGUIRRE Work Phone: [facility] Encounters Encounter Date Encounter Type Care Provider Facility Start: 10-12-2023 Patient encounter status [facility] Start: 10-12-2023 End: 10-12-2023 ambulatory [facility] Work Phone: Start: 10-12-2023 End: 10-12-2023 Encounter for general adult medical examination without abnormal findings [facility] Start: 10-12-2023 End: 10-12-2023 Patient encounter procedure [facility] Phys[facility] Work Phone: Start: 09-14-2023 End: 09-14-2023 Patient encounter procedure [facility] Physician [facility] Work Phone: Start: 06-21-2023 End: 06-21-2023 ambulatory MARSHA LANDA Facility:[facility] Start: 06-21-2023 End: 06-21-2023 Patient encounter procedure Marsha Landa BOOKKEEPING MACHINE MECHANIC.MOBILE HOMES REPAIRER Work Phone: [facility] Comment on above: Right leg pain (Prim antonietta Dx); Numbness and tingling of right lower extremity; Piriformis syndrome, right Start: 06-12-2023 End: 06-13-2023 ambulatory LINDA MUÑOZ Not Available Start: 03-23-2023 End: 03-23-2023 ambulatory Jose Guadalupe Lakshmipathy Facility:[facility] Start: 03-23-2023 End: 03-23-2023 ambulatory MD Patience Mortensen Work Phone: [facility] Work Phone: Start: 03-23-2023 End: 03-23-2023 Patient encounter procedure MD Patience Mortensen Work Phone: [facility] [address] Work Phone: Start: 03-20-2023 End: 03-20-2023 ambulatory Oscar MCKEON Facility:[facility] Start: 03-20-2023 End: 03-20-2023 Patient encounter procedure Oscar Mckeon MD Work Phone: Pl[facility] Surgery Comment on above: Encounter for cosmet ic surgery (Primary Dx) Start: 10-20-2022 End: 10-21-[address] PATIENCE MORTENSEN Facility: Start: 10-11-2022 End: 10-12-2022 ambulatory LORRI BERRY Facility: Procedures Date Procedure Procedure Detail Performing Clinician Start: 03-23-2023 XR pre/post mri xray MD Patience Mortensen Work Phone: Start: 03-23-2023 MR lumbar spine wo con MD Patience Mortensen Work Phone: Plan of Treatment Date Care Activity Detail Author Start: 06-12-2024 Screening for malignant neoplasm of breast Mammogram Screening [facility] Start: 03-10-2023 Influenza vaccination [facility] Start: 07-10-2022 DEPRESSION ASSESSMENT DEPRESSION ASSESSMENT [facility] Start: 2020 SHINGRIX VACCINE (1 of 2) SHINGRIX VACCINE (1 of 2) [facility] Start: 12-07-2015 COLOGUARD (FIT-DNA) COLOGUARD (FIT-DNA) [facility] Start: 12-07-2015 Colonoscopy COLONOSCOPY [facility] Start: 12-07-2015 COLORECTAL CANCER SCREENING COLORECTAL CANCER SCREENING [facility] Start: 12-07-[address] COLONOGRAPHY [facility] Start: 12-07-2015 DIABETES SCREEN DIABETES SCREEN [facility] Start: 12-07-2015 Diabetes Screening Diabetes Screening [facility] Start: 12-07-2015 FECAL OCCULT BLOOD FECAL OCCULT BLOOD [facility] Start: 12-07-2015 Lipid panel Lipid Screening [facility] Start: 12-07-2015 LIPID SCREEN LIPID SCREEN [facility] Start: 12-07-2015 Screening for malignant neoplasm of colon [facility] Start: 12-07-2015 SIGMOIDOSCOPY SIGMOIDOSCOPY [facility] Start: 2010 Mammography MAMMOGRAM [facility] Start: 2000 HPV TESTING HPV TESTING [facility] Start: 2000 Screening for malignant neoplasm of cervix HPV Testing [facility] Start: 12-07-1991 PAP TESTING PAP TESTING [facility] Start: 12-07-1991 Screening for malignant neoplasm of cervix Pap Testing [facility] Start: 1989 Urine microalbumin profile [facility] Start: 1988 HEPATITIS C SCREENING HEPATITIS C SCREENING [facility] Start: 1988 Hepatitis C screening Hepatitis C Screening [facility] Start: 1988 HIV SCREENING HIV SCREENING [facility] Start: 1988 HIV screening HIV Screening [facility] Start: 06-08-1971 COVID-19 VACCINE (#1) COVID-19 VACCINE (#1) [facility] Start: 1970 HEPATITIS B (1 of 3 - 3-dose series) HEPATITIS B (1 of 3 - 3-dose series) [facility] Start: 1970 Hepatitis B Vaccine (1 of 3 - 3-dose series) Hepatitis B Vaccine (1 of 3 - 3-dose series) [facility] Comprehensive metabo lic 2000 panel - Serum or Plasma [facility] Payers Date Payer Category Payer Self-pay [id number] 2022 Unknown MMO MMO [employer] PPO [id number] 2022-Present [phone] [address] [place] [address] PPO [id number] 1970 Unknown [id number] 1970 Unknown [id number] 1970 Unknown [id number] 1959 Unknown [id number] 1959 Unknown [id number] Unknown [id number] Unknown Regular Insurance [id number] Social History Date Type Detail Facility [facility] consumption unknown [facility] Start: 03-14-2023 End: 06-19-2023 History of Social function [facility] Start: 03-14-2023 End: 06-19-2023 Area Deprivation Index [facility] National Score (1-10 0), lower number is lower risk 61 [facility] Start: 1970 Sex Assigned At Not on file C [facility] Start: 1970 Sex Assigned At Female [facility] Start: 10-12-2023 Tobacco smoking stat [facility] Never smoked tobacco (finding) [facility] Clinical Notes 01-06-2015 to 06-21-2023 Marsha Landa APRN.RUBEN - 06/21/2023 8:00 AM Oscar Alamo MD - 03/20/2023 8:56 AM EDT Note Date & Type Note Facility 06-21-2023 Note HNO ID: [id number] Author: Marsha Landa APRN.MOBILE HOMES REPAIRER Service: ? Author Type: Nurse Practitioner Type: Progress Notes Filed: 06/21/2023 9:30 AM Note Text: [facility] Radicular Leg Pain - Chronic (> 12 weeks) Initial Exam SUBJECTIVE HISTORY OF PRESENT ILLNESS: Socorro Gallagher is a 52 year old female who presents with a chief complaint of right buttocks and leg pain and is self-referred. Patient presents with right sided buttocks and leg pain x 4 years. Denies accident/injury Prior to today's appointment she has been under the care of pain management in [facility] where she recently underwent a right gluteal nerve block without improvement in symptoms. She states that at postinjection follow-up she was offered a piriformis injection but is reluctant to proceed. She reports that she recently had an EMG completed. EMG results were not available at time of today's appointment. 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 Pain rated 2/10 today at worst 6/10 Pain worse with sitting, work, laying flat , Pain improved with standing, laying on side, activity , baclofen,heat, ice ,naproxen, Interventions: injection - gluteal, medications, standing desk at work, heat, ice, Medications: Baclofen, ibuprofen, naproxen , prednisone Physical Therapy: Spring 2022 attended at [facility] , she states sessions were not effective Treating Physicians: Dr Mckeon - Plastic Surgery Dr. Mortensen - PCP Linda Muñoz PA-C - OBGYPratik Costa - Pain management History of Spine Injections/Surgery: 04/25/2023 Gluteal nerve injection, diagnostic - no relief Other Issues Addressed at the Visit Today: None. Precipitating Event: None PAIN EVALUATION 06/19/2023201106/21/2023 0752 Pain Level: 3 2 worse in the morning and sitting for too long Pain Location: Foot-Right Back-Lower radiates to R leg Description: Aching;Burning;Dull;Numbness;Tin gling Burning Numbness and tingling on R leg Duration Units: Months Years got worse in the last year Frequency: Continuous Continuous Intervention/Comfort measure: Medication;Reposition;Positionin g -- Litigation: No Workers' Compensation: No YELLOW AND BLUE FLAGS No-Neg Attitude; Back Pain is Disabling No-Avoiding Activity (for Fear of Pain) No-Depression or Anxiety Disorders No-Social Problems No-Substance Use Disorder No-Job Dissatisfaction No-Financial Disincentives Patient Entered Questionnaires Spine Questions 06/19/2023 Pain Location: Other Pain Duration: 1 to 5 years Pain over last 6 months: Every day or nearly every day in the past 6 months Symptoms from neck/cervical spine: No Employment Status: Working now Involved in law suit/legal claim: No Spine Red Flags 06/19/2023 Any type of cancer: No Unexplained fever: No Bowel or bladder disfunction: No Unintentional weight loss: No Osteoporosis: No PROMIS Score Percentiles Physical Health 06/19/2023 Physical Function Percentile 38 Sleep Percentile 54 Fatigue Percentile 79 Pain Interference Percentile 18* PROMIS SOCIAL ROLE SCORE 06/19/2023 Social Role Satisfaction Percentile 27* PROMIS Global Health Scale 03/16/2023 06/19/2023 Physical Health Percentile 66 66 Mental Health Percentile 34 34 Percentiles provide an indication of how the patient's score ranks in relation to the general population. Higher percentile rankings indicate better function/quality of life. 50th percentile is the average of the general population and indicates half of respondents had a worse score. Depression Screening: PHQ-9 06/19/2023 Score 4 PHQ-9 Self Harm 06/19/2023 Question 9 Not at all PHQ-9 Self-Harm (Item 9) response options: 0 Not at all 1 Several days 2 More than half the days 3 Nearly every day PHQ-9 Levels: 0-4 No - mild depression 5-9 Mild depression 10-14 Moderate depression 15-19 Moderately severe depression 20-27 Severe depression There is no problem list on file for this patient. No past medical history on file. No past surgical history on file. No family history on file. ALLERGIES Not on File CURRENT MEDICATIONS: baclofen 10 mg tablet TAKE 1/2 TABLET BY MOUTH 3 TIMES A DAY LORazepam (ATIVAN) 0.5 mg Take 0.5 mg by mouth. REVIEW OF SYSTEMS: PAIN ASSESSMENT: See HPI. GENERAL: Denies fever, chills malaise and weight loss. HEENT: No recent change in vision or hearing. CARDIOVASCULAR: Denies chest pain, history of A-fib, valvular disease, or pacemaker/ICD. RESPIRATORY: Denies SOB, sputum production, and hemoptysis. GI: Denies GI ulcers, inflammatory disease, or liver disease. : Denies chapa (more content not included)... [facility] 06-21-2023 History of Present illness Narrative Images from the original note were not included. Spine Care Path Radicular Leg Pain - Chronic (> 12 weeks) Initial Exam SUBJECTIVE HISTORY OF PRESENT ILLNESS: Socorro Gallagher is a 52 year old female who presents with a chief complaint of right buttocks and leg pain and is self-referred. Patient presents with right sided buttocks and leg pain x 4 years. Denies accident/injury Prior to today's appointment she has been under the care of pain management in [facility] where she recently underwent a right gluteal nerve block without improvement in symptoms. She states that at postinjection follow-up she was offered a piriformis injection but is reluctant to proceed. She reports that she recently had an EMG completed. EMG results were not available at time of today's appointment. 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 Pain rated 2/10 today at worst 6/10 Pain worse with sitting, work, laying flat , Pain improved with standing, laying on side, activity , baclofen,heat, ice ,naproxen, Interventions: injection - gluteal, medications, standing desk at work, heat, ice, Medications: Baclofen, ibuprofen, naproxen , prednisone Physical Therapy: Spring 2022 attended at [facility] , she states sessions were not effective Treating Physicians: Dr Mckeon - Plastic Surgery Dr. Mortensen - PCP Linda Muñoz PA-C - OBJOSAFAT Costa - Pain management History of Spine Injections/Surgery: 04/25/2023 Gluteal nerve injection, diagnostic - no relief Other Issues Addressed at the Visit Today: None. Precipitating Event: None PAIN EVALUATION 06/19/2023201106/21/2023 0752 Pain Level: 3 2 worse in the morning and sitting for too long Pain Location: Foot-Right Back-Lower radiates to R leg Description: Aching;Burning;Dull;Numbness;Tin gling Burning Numbness and tingling on R leg Duration Units: Months Years got worse in the last year Frequency: Continuous Continuous Intervention/Comfort measure: Medication;Reposition;Positionin g -- Litigation: No Workers' Compensation: No YELLOW & BLUE FLAGS No-Neg Attitude; Back Pain is Disabling No-Avoiding Activity (for Fear of Pain) No-Depression or Anxiety Disorders No-Social Problems No-Substance Use Disorder No-Job Dissatisfaction No-Financial Disincentives Patient Entered Questionnaires Spine Questions 06/19/2023 Pain Location: Other Pain Duration: 1 to 5 years Pain over last 6 months: Every day or nearly every day in the past 6 months Symptoms from neck/cervical spine: No Employment Status: Working now Involved in law suit/legal claim: No Spine Red Flags 06/19/2023 Any type of cancer: No Unexplained fever: No Bowel or bladder disfunction: No Unintentional weight loss: No Osteoporosis: No PROMIS Score Percentiles Physical Health 06/19/2023 Physical Function Percentile 38 Sleep Percentile 54 Fatigue Percentile 79 Pain Interference Percentile 18* PROMIS SOCIAL ROLE SCORE 06/19/2023 Social Role Satisfaction Percentile 27* PROMIS Global Health Scale 03/16/2023 06/19/2023 Physical Health Percentile 66 66 Mental Health Percentile 34 34 Percentiles provide an indication of how the patient's score ranks in relation to the general population. Higher percentile rankings indicate better function/quality of life. 50th percentile is the average of the general population and indicates half of respondents had a worse score. Depression Screening: PHQ-9 06/19/2023 Score 4 PHQ-9 Self Harm 06/19/2023 Question 9 Not at all PHQ-9 Self-Harm (Item 9) response options: 0 Not at all 1 Several days 2 More than half the days 3 Nearly every day PHQ-9 Levels: 0-4 No - mild depression 5-9 Mild depression 10-14 Moderate depression 15-19 Moderately severe depression 20-27 Severe depression There is no problem list on file for this patient. No past medical history on file. No past surgical history on file. No family history on file. ALLERGIES Not on File CURRENT MEDICATIONS: baclofen 10 mg tablet TAKE 1/2 TABLET BY MOUTH 3 TIMES A DAY LORazepam (ATIVAN) 0.5 mg Take 0.5 mg by mouth. REVIEW OF SYSTEMS: PAIN ASSESSMENT: See HPI. GENERAL: Denies fever, chills malaise and weight loss. HEENT: No recent change in vision or hearing. CARDIOVASCULAR: Denies chest pain, history of A-fib, valvular disease, or pacemaker/ICD. RESPIRATORY: Denies SOB, sputum production, and hemoptysis. GI: Denies GI ulcers, inflammatory disease, or liver disease. : Denies change in frequency or urgency, kidney disease, and burning with urination. MUSCULOSKELETAL: Positive for See HPI SKIN: Denies rash or itching. PSYCHOLOGICAL: Denies uncontrolled depression or anxiety. NEURO: Numbness ENDOCRINE: Denies diabetes, thyroid disease. HEMATOLOGY/LYMPHOLOGY: Denies cancer, bleeding or clotting disorders, anemia,and DVT's. ALLERGIC/IMMUNOLOGICAL: Denies risks for infection, or recent MRSA infections. OBJECTIVE: PHYSICAL EXAM Ht 160 cm (5' 3 ) Wt 64 kg (141 lb) BMI 24.98 kg/m GENERAL APPEARANCE: Well appearing, well-hydrated, well nourished and alert SKIN: Head, neck, trunk, and extremities dry, intact and without lesions LUNGS: even and non-labored breathing, normal chest excursion NEURO/PSYCH: oriented to time, place, and person, speech normal, mental status intact GAIT: normal, toe walking normal, heel walking normal, able to tandem gait POSTURE: Posture and spinal curves are normal PALPATION: no palpable masses, tenderness, or spasm, no palpable subluxation or step-off, no point tenderness over the spine MUSCULOSKELETAL: Extended Low Back & Leg Exam Lumbar Range of Motion Flexion Touches floor Extension Normal RIGHT LEFT Lateral Bending Full Full Oblique Extension Within Normal Limits Within Normal Limits Leg Raise Straight Leg Raise Negative Negative Contralateral Straight Leg Raise Negative Negative DTRs Knee Normal Normal Ankle Normal Normal Babinski normal normal Strength of Lower Extremities Extensor Hallux Longus 5/5 5/5 Ankle Dorsiflexion 5/5 5/5 Ankle Plantarflexion 5/5 5/5 Knee Extension 5/5 5/5 Sultana's Exam: Deferred Hip Range of Motion RIGHT LEFT Flexion Normal Normal Extension Normal Normal Abduction Normal Normal Adduction Normal Normal Internal Rotation Normal Normal External Rotation Normal Normal Hip Exam RIGHT LEFT DELORES Exam Normal Normal Trochanteric Bursa Tenderness Abnormal Normal Gaenslen's Maneuver Normal Normal Maryuri's Test (IT-Band Pathology) Normal Normal @[id number]@ Cervical Range of Motion Flexion Normal Extension Normal RIGHT LEFT Rotation Full ROM without pain Full ROM without pain Lateral Bend Full ROM without pain Full ROM without pain Upper Body Reflex Exam RIGHT LEFT Reflex Status Reflex Status Biceps 2+ Normal 2+ Normal Triceps 2+ Normal 2+ Normal Brachioradialis 2+ Normal 2+ Normal Inverted Radial 2+ Normal 2+ Normal Powell's Sign absent absent Upper Extremity Strength RIGHT LEFT Strength (MMT) Strength (MMT) Shoulder Abduction 5/5 5/5 Biceps 5/5 5/5 Triceps 5/5 5/5 Resisted Suppination 5/5 5/5 Wrist Extension 5/5 5/5 Interossei 5/5 5/5 NEUROSENSORY: Soft touch; Within Normal Limits Logroll: Negative Tinel's test: Negative [place]'s test: Negative Prone extension Negative Neuro Tests: None Data Review: [facility] records independently reviewed Images independently reviewed with the patient XR hip left 04/11/2023: No acute osseous findings. Mild right hip osteoarthritis and other chronic findings. There is no fracture or malalignment. Mild osteoarthritis of the right hip joint without significant joint space loss. Normal bone mineralization. Pubic symphysis and right sacroiliac joint are congruent with mild degenerative changes. Subtle soft tissue mineralization near the greater trochanter and ischium which could represent hydroxyapatite deposition or chronic tendinopathy. XR Lumbar 03/23/2023: The bones are in anatomic alignment. There is preservation of vertebral body heights. There is minimal disc height loss at L4-5 and L5-S1. There is no fracture or subluxation. Mild degenerative changes are noted in the sacroiliac joints. MRI LUMBAR - 03/23/2023 - External Imaging At L4-L5: There is a broad-based disc bulge with mild bilateral neural foraminal narrowing. No significant spinal canal narrowing. This is unchanged. At L5-S1: There is a mild broad-based disc bulge with minimal bilateral neural foraminal narrowing. No significant spinal canal narrowing. There is a similar central T2 hyperintense annular fissure. This is unchanged. There is a slightly larger 3.7 cm cystic structure within the left hemipelvis Disc height loss and alignment is as noted above. There is preservation of vertebral body heights. The marrow signal is within normal limits. The conus terminates at the inferior endplate of the L1 vertebral body level. No epidural or paraspinous fluid collection is appreciated. There is a slightly larger 3.7 cm cystic structure within the left hemipelvis. At T12-L1: There is a normal disc, central canal, and neural foramen. At L1-L2: There is a normal disc, central canal, and neural foramen. At L2-L3: There is a normal disc, central canal, and neural foramen. At L3-L4: There is a normal disc, central canal, and neural foramen. At L4-L5: There is a broad-based disc bulge with mild bilateral neural foraminal narrowing. No significant spinal canal narrowing. This is unchanged. At L5-S1: There is a mild broad-based disc bulge with minimal bilateral neural foraminal narrowing. No significant spinal canal narrowing. There is a similar central T2 hyperintense annular fissure. This is unchanged. ASSESSMENT/PLAN Right leg pain (primary encounter diagnosis) Numbness and tingling of right lower extremity Piriformis syndrome, right Socorro Gallagher is a 52 year old female with chronic right buttocks and leg pain and numbness. She denies accident or injury prior to onset of symptoms. At time of today's appointment no neurological or strength deficits noted with physical examination. MRI LUMBAR - 03/23/2023: At L4-L5: There is a broad-based disc bulge with mild bilateral neural foraminal narrowing. No significant spinal canal narrowing. This is unchanged. At L5-S1: There is a mild broad-based disc bulge with minimal bilateral neural foraminal narrowing. No significant spinal canal narrowing. There is a similar central T2 hyperintense annular fissure. She reports she recently had EMG testing completed. Results are not available at time of today's appointment she is encouraged to obtain results for further treatment considerations. MRI lumbar spine imaging along with lumbar spine anatomy reviewed. Treatment considerations including diagnostic interventional procedures, piriformis injection and right L5-S1 TFESI, reviewed. Upon completion of review she verbalized wish to avoid surgical consultation and declined further interventional procedures at this time. She verbalized wish to continue with conservative treatment. She will follow-up with her pain management provider. 1. Imaging: None 2. Physical Therapy: None 3. Medication: No changes 4. Referrals: None 5. Considerations: Right piriformis injection, right L5-S1 TFESI 6. Follow up: As needed -she will follow-up with pain management Imaging Ordered: None SIGNATURE: Marsha Landa APRN.CNP PATIENT NAME: Socorro Gallagher DATE: June 21, 2023 TIME: 7:51 AM documented in this encounter [facility] 03-20-2023 Note HNO ID: [id number] Author: Oscar Mckeon MD Service: ? Author Type: Physician Type: Progress Notes Filed: 03/20/2023 11:53 AM Note Text: Ms. Socorro Gallagher is a 52 year old, female presents for consultation for body contouring. The main complaint is skin laxity and excess fat. Area of concern - abdomen and flanks. Socorro has 3 children with ages - 26,24,21. Plans of having children in the immediate future: No. Prior surgery in the Abdomen: Yes- x 3, she noted that during her last , the surgeon also removed skin . Leads an active lifestyle: Yes Prior weight loss: No. Prior bariatric surgery; No Amount of weight loss: She specifically noted that the stretch huntley and skin laxity is of minimal concern, she wants reduction in bulk or volume in her mid-section. Smoking history: No No past medical history on file. No past surgical history on file. Exam: Ht 5' 3 (1.60m) Wt 135 lb (61.2kg) BMI 23.92 kg/(m2). Minimal musculo-fascial laxity and skin laxity, more lower abdomen vs upper abdomen. Pinch test: Upper abdomen ~5cm Flanks ~6cm each side. Socorro was given a discussion on the different body contouring options - abdominoplasty vs. mini-abdominoplasty vs. liposuction vs. a combination of the different procedures. I discussed the different liposuction modalities, the difference between traditional tumescent liposuction vs. ultrasonic liposuction vs. power-assisted liposuction vs. laser liposuction. I discussed the difference between liposuction alone vs. Skin-excision surgery, eg, abdominoplasty. I noted that there will be more comprehensive tightening with skin excision surgery. I noted that combining abdominoplasty with liposuction can improve the results at the expense of a more invasive procedure with longer anesthesia, slightly increased morbidity. I marked on her skin the areas to be treated with liposuction; the access sites and anticipated scars and she concurred with the treatment areas. I discussed the risks and complications of the procedure. I discussed the incisions to be used and the anticipated scar. Discussed the anesthesia to be used: Local. Discussed the anticipated postop course. Recommendation: Liposuction; local; outpatient - abdomen, +/- flanks. Oscar Mckeon, MD [facility] 03-20-2023 History of Present illness Narrative Ms. Socorro Gallagher is a 52 year old, female presents for consultation for body contouring. The main complaint is skin laxity and excess fat. Area of concern - abdomen and flanks. Socorro has 3 children with ages - 26,24,21. Plans of having children in the immediate future: No. Prior surgery in the Abdomen: Yes- x 3, she noted that during her last , the surgeon also removed skin . Leads an active lifestyle: Yes Prior weight loss: No. Prior bariatric surgery; No Amount of weight loss: She specifically noted that the stretch huntley and skin laxity is of minimal concern, she wants reduction in bulk or volume in her mid-section. Smoking history: No No past medical history on file. No past surgical history on file. Exam: Ht 5' 3 (1.60m) Wt 135 lb (61.2kg) BMI 23.92 kg/(m^2). Minimal musculo-fascial laxity and skin laxity, more lower abdomen vs upper abdomen. Pinch test: Upper abdomen ~5cm Flanks ~6cm each side. Socorro was given a discussion on the different body contouring options - abdominoplasty vs. mini-abdominoplasty vs. liposuction vs. a combination of the different procedures. I discussed the different liposuction modalities, the difference between traditional tumescent liposuction vs. ultrasonic liposuction vs. power-assisted liposuction vs. laser liposuction. I discussed the difference between liposuction alone vs. Skin-excision surgery, eg, abdominoplasty. I noted that there will be more comprehensive tightening with skin excision surgery. I noted that combining abdominoplasty with liposuction can improve the results at the expense of a more invasive procedure with longer anesthesia, slightly increased morbidity. I marked on her skin the areas to be treated with liposuction; the access sites and anticipated scars and she concurred with the treatment areas. I discussed the risks and complications of the procedure. I discussed the incisions to be used and the anticipated scar. Discussed the anesthesia to be used: Local. Discussed the anticipated postop course. Recommendation: Liposuction; local; outpatient - abdomen, +/- flanks. Oscar Mckeon MD documented in this encounter [facility] 10-20-2022 Note CONSULTATION CONSULTATION DATE: 10/20/2022 TO: Patience Mortensen M.D. CHIEF COMPLAINT: Includes right leg pain. HISTORY: She reports the pain as being 5-7/10, sharp in character, started two years ago, and described as pain occurring in the right buttock and calf area, increased with activities such as standing, walking and performing transitioning maneuvers. She feels most comfortable in the semi-recumbent position. Denies any change in bowel and bladder habits or new sensorimotor changes in the lower extremities. She also reports sitting for prolonged periods of time is quite uncomfortable. She currently takes no medications for her current pain symptoms. EXAM: Her examination is notable for patient having hypoesthesia along the right L5 dermatome, weakness of the right EHL. Straight leg raise is equivocally positive at 90 degrees. Depressed right Achilles reflex. She had no signs consistent with myelopathy involving the lower extremities on today's visit. Did have a fair amount of myofascial spasm involving the lumbar paravertebral muscles, worse on the right than the left side. IMPRESSION: Our impression is patient appears to have right L5 radiculopathy, myofascial dysfunction. RECOMMENDATIONS: I have recommended an EMG nerve conduction velocity study of her right lower extremity, lumbosacral MRI without contrast. Placed on baclofen 10 mg pills, half to one b.i.d. I have given her Valium 5 mg pills for her MRI, to be taken prior to her MRI. We will see her back in the office after the imaging study. As part of providing excellent, safe, comprehensive care, the following was completed at our patient's visit: 1. A medication reconciliation and review to ensure accurate knowledge of current/active medications, including asking our patients to inform us about any [id number] medications or herbal remedies/nutritional supplements/alternative remedies. 2. A review to specifically ensure our patients have had annual screening for: elevated body mass index (BMI, see intake chart for exact total), tobacco use, screening for depression, and screening for unhealthy alcohol use. When screening is concerning, patients are provided with education and the specific recommendation to discuss the concerning health issue and treatment options with their primary care provider. [facility] 10-11-2022 Note PROCEDURE: XR ANKLE RT MIN 3 VIEWS, XR FOOT RT MIN 3 VIEWS HISTORY: Pain of right ankle joint ; chronic right foot and ankle numbness; no known injury COMPARISON: XR foot right 06/20/2019 FINDINGS: BONES:Prior resection of the heads of the fourth and fifth proximal phalanges. No fracture, dislocation, bone lesion. No significant joint space narrowing. SOFT TISSUES:No visible soft tissue swelling. EFFUSION:None visible. OTHER: Negative. IMPRESSION: 1. Remote surgical changes of the fourth and fifth toes. 2. Otherwise unremarkable right foot and ankle. Electronically authenticated by: CHRISTINA ROBLERO Date: 2022-10-11 11:33 [facility] 10-11-2022 Note PROCEDURE: XR ANKLE RT MIN 3 VIEWS, XR FOOT RT MIN 3 VIEWS HISTORY: Pain of right ankle joint ; chronic right foot and ankle numbness; no known injury COMPARISON: XR foot right 06/20/2019 FINDINGS: BONES:Prior resection of the heads of the fourth and fifth proximal phalanges. No fracture, dislocation, bone lesion. No significant joint space narrowing. SOFT TISSUES:No visible soft tissue swelling. EFFUSION:None visible. OTHER: Negative. IMPRESSION: 1. Remote surgical changes of the fourth and fifth toes. 2. Otherwise unremarkable right foot and ankle. Electronically authenticated by: CHRISTINA ROBLERO Date: 2022-10-11 11:33 [facility] 01-06-2015 Evaluation note Diagnosis Onset Date Anxiety January 06, 2015 acute Anxiety January 06, 2015 acute Palpitations acute Screening for lipid disorders acute Screening for metabolic disorder acute Screening, deficiency anemia , iron acute Wellness examination acute [facility] Work Phone: Evaluation note* Diagnosis Encounter for cosmetic surgery- Primary Other plastic surgery for unacceptable cosmetic appearance [facility] note[facility] information [facility] Work Phone: Evaluation note* Diagnosis Right leg pain- Primary Pain in limb Numbness and tingling of right lower extremity Piriformis syndrome, right documented in this encounter [facility] Summary Purpose Family History Relationship Condition Age at Onset Recorded Date/T valent[place] father Unknown Heart disease Unknown Advance Directives Advance Directive Response Recorded Date/ Time Advance Directives No December 03 3:22pm Chief Complaint and Reason for Visit Chief Complaint Lumbar Radiculopathy Chief Complaint possible anxiety Wellness Reason for Visit Anxiety Anxiety Palpitations Screening for lipid disorders Screening for metabolic disorder Screening, deficiency anemia, iron Wellness examination Additional Source Comments INFORMATION SOURCE (unrecogn ized section and content) DATE CREATED AUTHOR 09/08/2020 [facility] DATE CREATED AUTHOR AUTHOR'S ORGANIZ ATION 10/27/2022 [facility] DATE CREATED AUTHOR AUTHOR'S ORGANIZ ATION 06/21/[address] [facility] DATE CREATED AUTHOR AUTHOR'S ORGANIZ ATION 06/23/2023 [facility] DATE CREATED AUTHOR AUTHOR'S ORGANIZ ATION 06/25/2023 [facility] Source Comments (unrecognize d section and content) In the event this informatio n is protected by the Federal Confidentiality of Alcohol and Drug Abuse Patient Records regulations: The Federal rules restrict any use of the information to criminally investigate or prosecute any alcohol or drug abuse patient.[facility] the event this information is protected by the Federal Confidentiality of Alcohol and Drug Abuse Patient Records regulations: The Federal rules restrict any use of the information to criminally investigate or prosecute any alcohol or drug abuse patient.[facility] Reason for Visit (unrecogniz ed section and content) Reason Comments Consult Reason Comments New Patient Low Back Pain Care Teams (unrecognized sec tion and content) Team Status: Active Member Role Status Dates Patience Mortensen MD Primary Care Provider Active Team Status: Inactive Member Role Status Dates Patience Mortensen MD Primary Care Provider Active Jose Guadalupe Costa MD Attending Provider Acti ve Team Status: Active Member Role Status Dates Genevieve Feng APRN [employer] Primary Care Provider Active Team Status: Inactive Member Role Status Dates Patience Mortensen MD Primary Care Provider Active Start: September 14, 2023 End: September 14, 2023 DAGMAR Perrin Attending Provider Act star Start: September 14, 2023 End: September 14, 2023 Team Status: Inactive Member Role Status Dates Patience Mortensen MD Primary Care Provider Active Start: October 12, 2023 End: October 12, 2023 DAGMAR Perrin Attending Provider Act star Start: October 12, 2023 End: October 12, 2023 Goals (unrecognized section and content) Goals may be documented in a n alternate sectionGoals may be documented in an alternate section FOR RECORDS PERTAINING TO PATIENTS WHO ARE OR HAVE BEEN ENROLLED IN A CHEMICAL DEPENDENCY/SUBSTANCEABUSE PROGRAM, SOME INFORMATION MAY BE OMITTED. This clinical summary was aggregated from multiple sources. Caution should be exercised in using it in the provision of clinical care. This summary normalizes information from multiple sources, and as a consequence, information in this document may materially change the coding, format and clinical context of patient data. In addition, data may be omitted in some cases. CLINICAL DECISIONS SHOULD BE BASED ON THE PRIMARY CLINICAL RECORDS. [employer] provides no warranty or guarantee of the accuracy or completeness of information in this document.
[2023-10-13 08:26] LABS: Basophils Percent Auto 0.8 % (0.2-2.0); Eosinophils Absolute Auto 0.1 10^3/uL (0.0-0.7); Eosinophils Percent Auto 1.3 % (0.9-7.0); Hematocrit 40.5 % (36.0-48.0); Hemoglobin 13.1 g/dL (12.0-16.0); Immature Granulocytes Abs Auto 0.01 10^3/uL (0.00-0.03); Immature Granulocytes Pct Auto 0.3 % (0.0-0.5); Lymphocytes Absolute Auto 1.2 10^3/uL (1.2-3.8); Lymphocytes Percent Auto 28.8 % (20.5-60.0); Mean Corpuscular HGB Conc 32.3 g/dL (29.9-35.2); Mean Corpuscular Hemoglobin 30.4 pg (26.7-34.0); Mean Platelet Volume 9.6 fL (9.5-13.5); Monocytes Absolute Auto 0.3 10^3/uL (0.3-0.8); Monocytes Percent Auto 6.5 % (1.7-12.0); Neutrophils Absolute Auto 2.5 10^3/uL (1.4-6.5); Neutrophils Percent Auto 62.3 % (43.0-75.0); Platelet Count 246 10^3/uL (150-450); Red Blood Count 4.31 10^6/uL (4.20-5.40); Red Cell Distribution Width 11.9 % (11.0-15.0)
[2023-10-13 09:11] LABS: Alanine Aminotransferase 39 U/L (14-59); Albumin Globulin Ratio 0.9; Albumin Level 3.8 g/dL (3.4-5.0); Alkaline Phosphatase 81 U/L (46-116); Anion Gap 12.1; Aspartate Amino Transferase 32 U/L (15-37); Bilirubin Total 0.7 mg/dL (0.2-1.0); Calcium 9.2 mg/dL (8.5-10.1); Carbon Dioxide 27.9 mmol/L (21.0-32.0); Chloride 104 mmol/L (98-107); Chol HDL Ratio 5.1; Cholesterol 252 mg/dL (<=200); Estimated GFR (African America >60 (>=60); Estimated GFR (Non-African Ame >60 (>=60); Globulin 4.2 g/dL; Glucose 94 mg/dL (74-106); HDL Cholesterol 49 mg/dL (40-60); Sodium 140 mmol/L (136-145); TSH W/ REFLEX FT4 1.852 uIU/mL (0.358-3.740); Triglycerides 77 mg/dL (<=150); VLDL CHOLESTEROL 15.4 mg/dL
[2023-10-13 09:34] LABS: Percent Iron Saturation 47.3 %
== END 2023-10-13 08:02 | disposition home or self-care (01) ==
LOC: LAB 08:03
PROVIDERS: PCP Nurse Practitioner Family; Visit Provider Nurse Practitioner Family
DX: Z00.00 Encounter for general adult medical examination without abnormal findings (principal); Z13.0 Encounter for screening for diseases of the blood and blood-forming organs and certain disorders involving the immune mechanism; Z13.220 Encounter for screening for lipoid disorders; Z13.228 Encounter for screening for other metabolic disorders; R00.2 Palpitations
CPT/HCPCS: 36415; 80053; 80061; 83540; 83550; 84443; 85025

== ENCOUNTER 2024-02-21 14:13 | Outpatient (OUT) | payer OTHER, SELFPAY ==
--- OUTSIDE RECORDS SUMMARY | 2024-02-21 14:22 | XMS_ITS | CCD ---
Author Organization [facility] Care Team Providers Care Supervisor Dental Laboratory Name Role Phone DR PATIENCE MORTENSEN Primary Care Unavailable LAKSHMIPATHY ., NARENDRANATH Admitting Mariella vailable LAKSHMIPATHY ., NARENDALBARO Consulting Mariella vailable LAKSHMISHMICINDYY ., JOSE GUADALUPE Attending Mariella LORRI Rai Admitting Unavailable LORRI BERRY Attending Unavailable DR CHRISTINA ROBLERO Consulting Unavailable DR PATIENCE MORTENSEN Primary Care Unavailable LORRI BERRY Consulting Unavailable Unavailable Primary Care Provider UnavailMD Patience Ramirez Primary Care Provider MD Jose Guadalupe Costa Attending Provider Unavailable MARSHA LANDA Attending Unavailable Oscar MCKEON Attending Unavailable Jose Guadalupe Costa Attending Unava ilable Jose Guadalupe Costa Admitting Unava ilable Patience Mortensen Primary Care Unavailable BETHANY EM Attending Unavailable LINDA MUÑOZ Referring Unavailable Medications Current Medications Medication Drug Class(es) Dates Sig (Normalized) Sig (Original) busPIRone hydrochloride 5 mg oral tablet (4 sources) Start: 09-14-2023 End: 10-12-2023 take 5 mg by mouth twice daily Buspirone Active 5 MG PO Twice daily 180 90 October 12, 2023 8:51am estradiol 0.5 mg oral tablet (2 sources) Estrogen Start: 09-14-2023 take 0.5 mg by mouth once daily Estradiol Active 0.5 MG PO Daily September 14, 2023 1:00am LORazepam 0.5 mg oral tablet (4 sources) Benzodiazepine Start: 09-14-2023 take 1 tablet [...] Sig (Original) baclofen 10 mg oral tablet (4 sources) gamma-Aminobutyri c Acid-ergic Agonist Start: 09-14-2023 [...] Active Problems Problem Classification Problem Date Documented Date Episodic/Chronic Anxiety disorders (4 sources) Anxiety; Translations: [Anxiety disorder, unspecified] Onset: 01-06-2015 09-14-2023 Chronic Cardiac dysrhythmias (4 sources) Palpitations; Translations: [Palpitations] 10-12-2023 Episodic Conditions associated with dizziness or vertigo (2 sources) Dizziness; Translations: [Dizziness and giddiness] 02-19-2024 Episodic Nonspecific chest pain (2 sources) Tight chest; Translations: [Other chest pain] 02-19-2024 Episodic Other connective tissue disease (3 sources) [...] lipoid disorders] 10-12-2023 Episodic Residual codes; unclassified (7 sources) Patient encounter status; Translations: [Encounter for cosmetic surgery] 03-20-2023 Episodic Residual codes; unclassified (1 source) Family history of cardiovascular disease in first degree male relative less than 55 years of age; Translations: [Family history of ischemic heart disease and other diseases of the circulatory system] 02-19-2024 Episodic Residual codes; unclassified (1 source) Family history of ischemic heart disease and other diseases of the circulatory system; Translations: [Family history of other cardiovascular diseases] 02-19-2024 Episodic Past or Other Problems Problem Classification Problem Date Documented Da te Episodic/Chronic Spondylosis; intervertebral disc disorders; other back problems (2 sources) Radiculopathy, lumbar region; Translations: [RADICULOPATHY LUMBAR REGION] Onset: 10-26-2022 Episodic Results Test Name Value Interpretation Reference Range Facil dwaine LUKEGUADALUPEkeo 06-21-2023 CNOV Office Visit ([facility] ) SOCORRO GALLAGHER ([id number]) 1970 F Date Time Provider Department 06/21/23 8:00 AM MARSHA LANDA [facility] During your visit today, we recorded the following information about you: Weight Height 64 kg 1.6 m Marsha Landa APRN.HELMET HAT PUNCHER 06/21/2023 9:30 AM Signed [facility] [...] under the care of pain management in [facility] where she recently underwent a right gluteal nerve block without improvement in symptoms. She states that at postinjection follow-up she was offered a piriformis injection but is reluctant to proceed. She reports that she recently had an EMG completed. EMG results were not available at time of today's appointment. 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 Mortensen - PCP Linda Muñoz PA-C - OBGYSae Costa - Pain management History of Spine [...] christina (more content not included)... Normal [facility] XR pre/post mri xrayon 03-23 XR pre/post mri xray [facility] Main [place] [address] [place] [address] MRI Report Signed Patient: Missy Gallagher MR#: [id number] 165 : 1970 Acct:[id number] Age/Sex: 52 / F ADM Date: 03/23/23 Loc: [facility] Room: Type: [facility] Attending Dr: Jose Guadalupe Costa MD Copies to: Jose Guadalupe Costa Ordering Provider: Jose Guadalupe Costa Date of Service: 03/23/23 MR/MR lumbar spine wo con: LUMBAR RADICULOPATHY ([id number]) XR/XR pre/post mri xray: LUMBAR MRI MR [...] Austin Marsh M.D.03/23/2023 3:17 PM Dictation Location: [place] [address] Transcribed By: [facility] 03/23/231516 Dictated By: Austin Marsh II, MD 03/23/231511 Signed By: 03/23/231516 [facility] CNCOon 03-20-2023 CNCO Letter Text [facility] CNOVon 03-20-2023 CNOV Office Visit ([facility] ) SOCORRO GALLAGHER ([id number]) 1970 F Date Time Provider Department 03/20/23 9:00 AM Oscar MCKEON During your visit today, we recorded the [...] by Oscar MCKEON on 03/20/[address] [facility] BI MAMMOGRAM SCREENING SHANNON Kaur 03-16-2023 BI [...] IS VERY IMPORTANT TO YOUR HEALTH. THE [employer] GUIDELINES RECOMMEND THAT WOMEN 40 [...] - Ultrasound Reporton RAD - Ultrasound Report [id number] .00CD:127 Normal [facility] Coding Summary.on 07-31-2020 Coding Summary. CODING DATE: 07/31/2020 FINAL [facility] STATUS: Home (Routine DC) PAYOR: [facility] [place] [facility] DESCRIPTION 5373 Level 3 Urology and [...] So [place] Date Saved: 07/31/2020 12:[address] [facility] Consent for Procedure/Surger yon 07-30-2020 Consent for Procedure/Surgery [id number] 1.00CD:127 [facility] Consent for Treatmenton 07-11 Consent for Treatment [id number] .00CD:127 [facility] Discharge Instructionson Discharge Instructions [id number]# 1.00CD:127 [facility] History and Physicalon 07-30 History and Physical [id number]# 1.00CD:127 [facility] IntraOperative Documentson 0 07-30-2020 IntraOperative Documents [id number]# 1.00CD:127 [facility] Main OR Intraoperative Recor don 07-30-2020 Main OR Intraoperative Record IntraOp Document Type FTURO Summary Primary Physician: Facundo Fam Jr., MD Finalized Date/Time: 07/30/20 13:50:41 Pt. Name: MISSY GALLAGHER/Sex: 1970 Female Med Rec #: [id number] Physician: Facundo Fam Jr., MD Financial #: [id number] Pt. Type: O Room/Bed: / Admit/Disch: 07/30/20 13:06:47 - Institution: Case Times FTURO Entry 1 Patient Times In Room 07/30/20 13:40:00 Out Room 07/30/20 13:51:00 Procedure Times Start 07/30/20 13:46:00 Stop 07/30/20 13:47:00 Anesthesia Times Last Modified By: LYNSEY Macias RN, Lou Ann 07/30/20 13:50:14 Case Attendance FTURO Entry 1 Entry 2 Entry 3 Case Attendee Sarwat Yadav MD, Facundo Macias RN, LUKEORDiana CST, Marisela Reeves Role Performed Surgeon - Primary Dolly Operator - Primary Scrub - Primary Time In 07/30/20 13:40:00 07/30/20 13:40:00 07/30/20 13:40:00 Time Out 07/30/20 13:51:00 07/30/20 13:51:00 07/30/20 13:51:00 Procedure CYSTOSCOPY LOCAL WITH CYSTOSCOPY LOCAL WITH CYSTOSCOPY LOCAL WITH URETHRAL DILATION(.) URETHRAL DILATION(.) URETHRAL DILATION(.) Comments Last Modified By: LUKE Macias RNORDiana RN, CNORDiana RN, CNOR, Lou Ann 07/30/20 13:50:29 07/30/20 13:50:29 07/30/20 13:50:29 Surgical Procedures FTURO Entry 1 Procedure Description Procedure CYSTOSCOPY LOCAL WITH Modifiers . URETHRAL DILATION Surgeon Description CYSTOSCOPY WITH URETHRAL DILATION- 24-30 Primary Procedure Yes Primary Surgeon Sarwat Yadav MD, Facundo Felix Start 07/30/20 13:46:00 Stop 07/30/20 13:47:00 Anesthesia [...] Position Verified Availability Equipment, Medication Time Out Facundo Fam Jr., MD, Verified (If Participants LYNSEY Macias RN, Diana Applicable) Hamida Avilez CST, Marisela Reeves Time Out Complete 07/30/20 13:44:00 Allergies Reviewed? [...] Macias RN, Lou Ann 07/30/20 13:50 Normal [facility] Main OR Preoperative Recordo n 07-30-2020 Main OR Preoperative Record Holding Area Document Type FTURO Summary Primary Physician: Facundo Fam Jr., MD Finalized Date/Time: 07/30/20 13:41:28 Pt. Name: MISSY GALLAGHER/Sex: 1970 Female Med Rec #: [id number] Physician: Facundo Fam Jr., MD Financial #: [id number] Pt. Type: O Room/Bed: / Admit/Disch: 07/30/20 13:06:47 - Institution: Case Times Holding FTURO Pre-Care Text: Verifies consent for planned procedure, identifies individual values and wishes concerning care, includes family members in perioperative teaching Secures patient's records' belongings, and valuables, maintains patient's dignity and privacy, and maintains patient confidentiality Entry 1 In Holding 07/30/20 13:19:00 Outcomes Met? Yes Last Modified By: Belle Thacker LPNthia 07/30/20 13:19:37 Post-Care Text: The patient participates [...] RN, Lou Ann Document Signatures Signed By: Missy Thacker LPN 07/30/20 13:22 LYNSEY Macias RN, Lou Ann 07/30/20 13:41 LYNSEY Macias RN, Lou Ann 07/30/20 13:41 Normal [facility] Operative Reporton 1 Operative Report Patient: MISSY GALLAGHER Age: 49 years Sex: Female : 1970 Associated Diagnoses: None Author: Sarwat Yadav MD, Facundo Felix Procedure Operative Information Pre-Op Dx: Frequency - [...] urine. The Urethra was dilated to: 28 Albanian w/ sounds. Devices Implanted: None. Removal: Cystoscope is removed, The patient tolerated it well. Postoperative Information Discharge: Patient is discharged home with antibiotic coverage, Follow up arranged. Normal [facility] Comment on above: Result Comment: Elec tronically Signed By: Sarwat Yadav MD, Facundo Felix\.br\Date and Time Signed: 07/30/20 13:51 EST Patient Educationon 07-30-19 Patient Education Cystoscopy with Urethral Dilation ? [...] have a fever over 100 degrees Normal [facility] Ambulatory Clinical Summaryo n 07-21-2020 Ambulatory Clinical Summary {[id number]}CD:[id number] Normal [facility] Ambulatory Clinical Summary {[id number]}CD:[id number] Normal [facility] Patient Educationon 07-21-19 21 Patient Education [...] Document Reviewed: 08/03/2012 ExitCare? Patient Information ?[address] [facility] Urology Office/Clinic Noteon 07-21-2020 Urology Office/Clinic [...] Will order Local anesthesia. ABX sent to [facility] in [place]. Ordered: Urology Procedure Order US Renal 2. [...] day(s), # 2 tab(s), Refills(s) 0, Pharmacy: [facility]/pharmacy #[id number], 162, cm, 07/21/20 13:48:00 EST, Height/Length Dosing, 68.5, kg, 07/21/20 13:48:00 EST, Weight Dosing Urnls Dip Stick Auto w/o Microscopy POC [id number] I have reviewed the previous health record information and history for this pt. from Dr. Fam. Follow-up With When Contact Information Sarwat Yadav MD, Facundo [facility] [address] [place] [id number]- Additional Instructions: Patient Education Urinary Tract Infection [...] Protein Urine Dipstick: Negative (07/21/20 13:39:00) Specific [place] Urine Dipstick: 1.020 (07/21/20 13:39:00) Urine Appearance [...] she is been treated with Bactrim DS. [facility] Comment on above: Result Comment: Elec tronically Signed By: Sarwat Yadav MD, Facundo Felix\.br\Date and Time Signed: 07/21/20 14:42 EST\.br\Electronically Co-Signed By: Lety Marino MA\.br\Date and Time Co-Signed: 07/21/20 14:31 EST Vital Signs Date Time Vital Sign Value Performing Clinician uLke manzano 02-19-2024 15:040 Body height 160.02 cm [facility] 02-19-2024 15:290400 Body mass index (BMI) [Ratio] 25.3 kg/m2 [facility] 02-19-2024 15:29040 Body weight 64.86 kg [facility] 02-19-2024 15:290400 Diastolic blood pressure 80 mm[Hg] [facility] 02-19-2024 15:29040 Heart rate 87 /min [facility] 02-19-2024 15:290400 SaO2% (BldA) [Mass fraction] 98 % [facility] 02-19-2024 15:290400 Systolic blood pressure 136 mm[Hg] [facility] 10-12-2023 08:0400 Body height 160.02 cm [facility] 10-12-2023 08:26-0400 Body mass index (BMI) [Ratio] 25.1 kg/m2 [facility] 10-12-2023 08:26-0400 Body weight 64.41 kg [facility] 10-12-2023 08:26-0400 Diastolic blood pressure 78 mm[Hg] [facility] 10-12-2023 08:26-0400 Heart rate 78 /min [facility] 10-12-2023 08:26-0400 SaO2% (BldA) [Mass fraction] 98 % [facility] 10-12-2023 08:26-0400 Systolic blood pressure 112 mm[Hg] [facility] 09-14-2023 09:36-0500 Body height 160.02 cm [facility] 09-14-2023 09:36-0500 Body mass index (BMI) [Ratio] 24.6 kg/m2 [facility] 09-14-2023 09:36-0500 Body weight 63.04 kg [facility] 09-14-2023 09:36-0500 Diastolic blood pressure 82 mm[Hg] [facility] 09-14-2023 09:36-0500 Heart rate 88 /min [facility] 09-14-2023 09:36-0500 SaO2% (BldA) [Mass fraction] 98 % [facility] 09-14-2023 09:36-0500 Systolic blood pressure 118 mm[Hg] [facility] 06-21-2023 07:56-0500 Body height 160 cm Marsha Landa APRN.CNP Work Phone: [facility] 06-21-2023 07:56-0500 Body weight 63.96 kg Marsha Landa APRN.CNP Work Phone: [facility] 03-20-2023 08:57-0400 Body height 160 cm JAM Mckeon MD Work Phone: [facility] 03-20-2023 08:57-0400 Body weight 61.24 kg JAM Mckeon MD Work Phone: [facility] Encounters Encounter Date Encounter Type Care Provider Facility Start: 02-19-2024 End: 02-19-2024 ambulatory [facility] Work Phone: Start: 02-19-2024 End: 02-19-2024 Patient encounter procedure [facility] Work Phone: Start: 10-26-2023 End: 10-26-2023 ambulatory BETHANY EM Not Available Start: 10-12-2023 Patient encounter status [facility] Start: 10-12-2023 End: 10-12-2023 ambulatory [facility] Work Phone: Start: 10-12-2023 End: 10-12-2023 Encounter for general adult medical examination without abnormal findings [facility] Start: 10-12-2023 End: 10-12-2023 Patient encounter procedure [facility] Work Phone: Start: 09-14-2023 End: 09-14-2023 Patient encounter procedure [facility] Work Phone: Start: 06-21-2023 End: 06-21-2023 ambulatory MARSHA LANDA Facility:[facility] Start: 06-21-2023 End: 06-21-2023 Patient encounter procedure Marsha Landa PODIATRY DOCTOR.HELMET HAT PUNCHER Work Phone: [facility] Comment on above: Right leg pain (Prim antonietta Dx); Numbness and tingling of right lower extremity; Piriformis syndrome, right Start: 06-12-2023 End: 06-13-2023 ambulatory LINDA MUÑOZ Not Available Start: 03-23-2023 End: 03-23-2023 ambulatory Narendranath Lakshmipathy Facility:[facility] Start: 03-23-2023 End: 03-23-2023 ambulatory MD Patience Mortensen Work Phone: [facility] Work Phone: Start: 03-23-2023 End: 03-23-2023 Patient encounter procedure MD Patience Mortensen Work Phone: [facility] [address] Work Phone: Start: 03-20-2023 End: 03-20-2023 ambulatory Oscar MCKEON Facility:[facility] Start: 03-20-2023 End: 03-20-2023 Patient encounter procedure Oscar Mckeon MD Work Phone: Plastic Surgery Comment on above: Encounter for cosmet ic surgery (Primary Dx) Start: 10-20-2022 End: 10-21-[address] PATIENCE MORTENSEN Facility:[facility] Start: 10-11-2022 End: 10-12-2022 ambulatory LORRI BERRY Facility:[facility] Procedures Date Procedure Procedure Detail Performing Clinician Start: 03-23-2023 XR pre/post mri xray MD Patience Mortensen Work Phone: Start: 03-23-2023 MR lumbar spine wo con MD Patience Mortensen Work Phone: Plan of Treatment Date Care Activity Detail Author Start: 06-12-2024 Screening for malignant neoplasm of breast Mammogram Screening [facility] Start: 03-10-2023 Influenza vaccination [facility] Start: 07-10-2022 DEPRESSION ASSESSMENT DEPRESSION ASSESSMENT [facility] Start: 2020 SHINGRIX VACCINE (1 of 2) SHINGRIX VACCINE (1 of 2) [facility] Start: 12-07-2015 COLOGUARD (FIT-DNA) COLOGUARD (FIT-DNA) [facility] Start: 12-07-2015 Colonoscopy COLONOSCOPY [facility] Start: 12-07-2015 COLORECTAL CANCER SCREENING COLORECTAL CANCER SCREENING [facility] Start: 12-07-[address] COLONOGRAPHY [facility] Start: 12-07-2015 DIABETES SCREEN DIABETES SCREEN [facility] Start: 12-07-2015 Diabetes Screening Diabetes Screening [facility] Start: 12-07-2015 FECAL OCCULT BLOOD FECAL OCCULT BLOOD [facility] Start: 12-07-2015 Lipid panel Lipid Screening [facility] Start: 12-07-2015 LIPID SCREEN LIPID SCREEN [facility] Start: 12-07-2015 Screening for malignant neoplasm of colon [facility] Start: 12-07-2015 SIGMOIDOSCOPY SIGMOIDOSCOPY [facility] Start: 2010 Mammography MAMMOGRAM [facility] Start: 2000 HPV TESTING HPV TESTING [facility] Start: 2000 Screening for malignant neoplasm of cervix HPV Testing [facility] Start: 12-07-1991 PAP TESTING PAP TESTING [facility] Start: 12-07-1991 Screening for malignant neoplasm of cervix Pap Testing [facility] Start: 1989 Urine microalbumin profile [facility] Start: 1988 HEPATITIS C SCREENING HEPATITIS C SCREENING [facility] Start: 1988 Hepatitis C screening Hepatitis C Screening [facility] Start: 1988 HIV SCREENING HIV SCREENING [facility] Start: 1988 HIV screening HIV Screening [facility] Start: 06-08-1971 COVID-19 VACCINE (#1) COVID-19 VACCINE (#1) [facility] Start: 1970 HEPATITIS B (1 of 3 - 3-dose series) HEPATITIS B (1 of 3 - 3-dose series) [facility] Start: 1970 Hepatitis B Vaccine (1 of 3 - 3-dose series) Hepatitis B Vaccine (1 of 3 - 3-dose series) [facility] Cardiovascular stres s testing [facility] Comprehensive metabo lic 2000 panel - Serum or Plasma [facility] Holter monitor study [facility] Immunizations Immunization Date Immunization Notes Care Provider Fa sary 02-28-2023 zoster vaccine recombinant [facility] 11-03-2020 COVID-19 Ad26.COV2.S (Anabell) [facility] Payers Date Payer Category Payer Unknown [id number] 2023 Self-pay [id number] 2022 Unknown MMO MMO [employer] PPO [id number] 2022-Present [phone] [address] [place] [address] PPO [id number] 1970 Unknown [id number] 1970 Unknown [id number] 1970 Unknown [id number] 1970 Unknown [id number] 1959 Unknown [id number] 1959 Unknown [id number] Unknown [id number] Social History Date Type Detail [facility] Start: 03-14-2023 End: 06-19-2023 History of Social function [facility] Start: 03-14-2023 End: 06-19-2023 Area Deprivation Index [facility] National Score (1-10 0), lower number is lower risk 61 [facility] Start: 1970 Sex Assigned At Not on file C [facility] Start: 1970 Sex Assigned At Female F [facility] Start: 10-12-2023 [facility] Never [facility] (finding[facility] Clinical Notes 01-06-2015 to 06-21-2023 Marsha Landa APRN.CNP - 06/21/2023 8:00 AM Oscar Alamo MD - 03/20/2023 8:56 AM EDT Note Date & Type Note Facility 06-21-2023 Note HNO ID: [id number] Author: Marsha Landa APRN.HELMET HAT PUNCHER Service: ? Author Type: Nurse Practitioner Type: [...] under the care of pain management in [facility] where she recently underwent a right gluteal nerve block without improvement in symptoms. She states that at postinjection follow-up she was offered a piriformis injection but is reluctant to proceed. She reports that she recently had an EMG completed. EMG results were not available at time of today's appointment. 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 [facility] 06-21-2023 History of Present illness Narrative Images [...] under the care of pain management in [facility] where she recently underwent a right gluteal nerve block without improvement in symptoms. She states that at postinjection follow-up she was offered a piriformis injection but is reluctant to proceed. She reports that she recently had an EMG completed. EMG results were not available at time of today's appointment. 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 Mortensen - PCP Linda Muñoz PA-C - OBGYSae Costa - Pain management History of Spine [...] Normal Limits Logroll: Negative Tinel's test: Negative Blanco's test: Negative Prone extension Negative Neuro Tests: [...] TIME: 7:51 AM documented in this encounter [facility] 03-20-2023 Note HNO ID: [id number] Author: Oscar Mckeon MD Service: ? Author [...] - abdomen, +/- flanks. Oscar Mckeon MD [facility] 03-20-2023 History of Present illness Narrative Ms. [...] Oscar Mckeon MD documented in this encounter [facility] 10-20-2022 Note CONSULTATION CONSULTATION DATE: 10/20/2022 [...] our patients to inform us about any xkcp-igf-ohdaaet medications or herbal remedies/nutritional supplements/alternative remedies. 2. [...] options with their primary care provider. [facility] 10-11-2022 Note PROCEDURE: XR ANKLE RT MIN [...] by: CHRISTINA ROBLERO Date: 2022-10-11 11:33 [facility] 10-11-2022 Note PROCEDURE: XR ANKLE RT MIN [...] authenticated by: CHRISTINA ROBLERO Date: 2022-10-11 11:33 [facility] 01-06-2015 Evaluation note Diagnosis Onset Date Anxiety January 06, 2015 acute Anxiety January 06, 2015 acute Palpitations acute Screening for lipid disorders acute Screening for metabolic disorder acute Screening, deficiency anemia , iron acute Wellness examination [facility] Work Phone: Evaluation note* Diagnosis Encounter for cosmetic surgery- Primary Other plastic surgery for unacceptable cosmetic appearance [facility] Work [facility]: [facility] note* Diagnosis Right leg pain- Primary Pain in limb Numbness and tingling of right lower extremity Piriformis syndrome, right [facility] Diagnosis Onset Date Resolution Status Chest tightness acute Dizziness acute Family history of heart dise ase in male family member before age 55 acute Palpitations acute [facility] Work Phone: Summary Purpose Family History Relationship Condition Age [...] disorder Screening, deficiency anemia, iron Wellness examination Chief Complaint no appatite, no ener gy, not feel well Reason for Visit Chest tightness Dizziness Family history of heart disease in male family member before age 55 Palpitations Additional Source Comments INFORMATION SOURCE (unrecogn ized section and content) DATE CREATED AUTHOR 09/08/2020 [facility] DATE CREATED AUTHOR AUTHOR'S ORGANIZ ATION 10/27/2022 [facility] DATE CREATED AUTHOR AUTHOR'S ORGANIZ ATION 06/23/2023 [facility] DATE CREATED AUTHOR AUTHOR'S ORGANIZ ATION 06/25/2023 [facility] DATE CREATED AUTHOR AUTHOR'S ORGANIZ ATION 10/27/2023 [facility] EPIC Source Comments (unrecognize d section and content) In the event this informatio n is protected by the Federal Confidentiality of Alcohol and Drug Abuse Patient Records regulations: The Federal rules restrict any use of the information to criminally investigate or prosecute any alcohol or drug abuse patient.[facility] the event this information is protected by the Federal Confidentiality of Alcohol and Drug Abuse Patient Records regulations: The Federal rules restrict any use of the information to criminally investigate or prosecute any alcohol or drug abuse patient.[facility] Reason for Visit (unrecogniz ed section [...] Member Role Status Dates Genevieve Feng APRN HANDS AND DIAL INSPECTOR-C Primary Care Provider Active Team Status: Inactive [...] October 12, 2023 End: October 12, 2023 Team Status: Inactive Member Role Status Dates DAGMAR Perrin Primary Care Provider, Attending Provider Active Start: February 19, 2024 End: February 19, 2024 Goals (unrecognized section and content) Goals may be documented in a n alternate sectionGoals may be documented in an alternate sectionGoals may be documented in an [...] BE BASED ON THE PRIMARY CLINICAL RECORDS. [facility]. provides no warranty or guarantee of the accuracy or completeness of information in this document.
== END 2024-02-21 14:14 | disposition home or self-care (01) ==
PROVIDERS: PCP Nurse Practitioner Family; Visit Provider Nurse Practitioner Family
DX: I49.9 Cardiac arrhythmia, unspecified (principal)
CPT/HCPCS: 93242

== ENCOUNTER 2024-02-27 08:17 | Outpatient (OUT) | payer OTHER, SELFPAY ==
--- NOTE | 2024-02-27 09:37 | PC.NURSE ---
Nursing Note Cardiac Stress Test Reviewed: Medication, allergies and patient history reviewed. Stress Test: [x ] Patient tolerated stress test well. [ ] Patient unable to tolerate walking on treadmill. Switched to Lexiscan stress test. [ ] No chest pain noted per patient [ ] Chest pain that resolved prior to leaving stress lab. [ ] No dyspnea noted. [ x] Dyspnea that resolved prior to leaving stress lab. [x ] Patient left stress lab asymptomatic and hemodynamically stable. [ ] Patient taken to the Emergency Room due to non-resolving symptoms following stress test. [ ] Patient achieved target heart rate. [ ] Patient unable to achieve target heart rate. [ ] Aminophylline administered as reversal agent to Lexiscan (Regadenoson). [ ] Nitro administered. Nursing Comments:Pt had regular stress test done. Pt tolerated well. Pt did have some tightness/spasm under her left ribcage but states this is normal for her and why she is having the stress test done. States it is not a new pain for her and is not as severe as it has been in the past.
--- NOTE | 2024-02-27 14:46 | PM.STRESS ---
Stress Test Stress Test Allergies Allergy/AdvReac Type Severity Reaction Status Date / Time No Known Drug Allergies Allergy Verified 04/25/23 09:20 Requesting physician: DANAY BLACKMON Procedure: Exercise stress test General Information: Reason for Stress Test: Chest pain Cardiac History and Risk Factors: No personal history. Father had [place] at age 44. Resting 12 - Lead Electrocardiogram: Normal sinus rhythm at a rate of 70. Normal axis. Flattened T-waves in aVL. Stress Test: Protocol: Olayinka protocol was followed Exercise capacity: Excellent exercise capacity. Total exercise time of 10 minutes 49 seconds reached Olayinka stage 4 at 4.2MPH, 16% grade, & 13.4 METs. Blood pressure: Initial: 124/72, Maximum: 164/80 Rate & rhythm: Patient remained in sinus rhythm during the exercise and recovery portions of the study.? The maximum heart rate was 171, which was 102% of the maximum predicted heart rate. ST-segments & T-waves: At peak exercise, patient developed 1mm ST-segment depression in the inferior leads (II, III, aVF) and lateral leads (V5, V6) which were present during the initial resting period and resolved within 1 minute. Near the 6 minute evangelina in the recovery period, biphasic T-waves manifested in the same leads. Patient response/symptoms: Left-sided chest pain occurred during the study which was the same as her chief complaint. Interpretation: This is an abnormal exercise stress test given ST-depression in the inferolateral leads at peak exercise and development of biphasic T-waves during recovery. Patient also experienced reproducible chest pain. Parkinson Treadmill Score is 1.8, which is a moderate risk. Clinical correlation required.
== END 2024-02-27 08:18 | disposition home or self-care (01) ==
LOC: CARD 08:18
PROVIDERS: PCP Nurse Practitioner Family; Visit Provider Nurse Practitioner Family
DX: R42 Dizziness and giddiness (principal); R00.2 Palpitations; R07.89 Other chest pain; Z82.49 Family history of ischemic heart disease and other diseases of the circulatory system
CPT/HCPCS: 93017

== ENCOUNTER 2024-02-29 06:55 | Outpatient (OUT) | payer OTHER, SELFPAY ==
--- NOTE | 2024-02-29 06:58 | US_ITS ---
The [address] [address] Patient Name: YURI SMITH MRN: [id number] date: 1970 Sex: F Assigned Patient Location: CARD Current Patient Location: Accession/Order Number: [id number] Exam Date: 02/29/2024 07:00 Report Date: 02/29/2024 09:30 At the request of: DANAY BLACKMON Procedure: US abdomen complete EXAMINATION: US abdomen complete HISTORY: Abdomen bloating, Abdomen Pain COMPARISON: No relevant comparison available. TECHNIQUE: High resolution sonographic examination of the abdomen was performed. FINDINGS: LIVER: Normal. Normal size and echotexture. No significant masses. Duplex Doppler demonstrates normal waveform and flow within the main portal vein, 34 cm/s. BILIARY: Normal. Normal appearing gallbladder and biliary tree. PANCREAS: Normal. No visible mass, abnormal atrophy, or ductal dilatation. SPLEEN: Normal. Normal size and echotexture. KIDNEYS: Normal. No mass or obstruction. AORTA/VASCULAR: Normal. No aneurysm. OTHER: Negative. US/US abdomen complete IMPRESSION: 1. Normal ultrasound evaluation of the abdomen. No acute or suspicious findings to account for patient's symptoms. Electronically authenticated by: CHRISTINA ROBLERO Date: 02/29/2024 09:30
--- OUTSIDE RECORDS SUMMARY | 2024-02-29 06:58 | XMS_ITS | CCD ---
Author Organization [facility] Care Team Providers Care Manager Transport Name Role Phone DR PATIENCE MORTENSEN Primary Care Unavailable LAKSHMIPATHY ., NARENDRANATH Admitting Mariella vailable LAKSHMIPATHY ., NARENDALBARO Consulting Mariella vailable LAKSHMISHMICINDYY ., JOSE GUADALUPE Attending Mariella LORRI Rai Admitting Unavailable LORRI BERRY Attending Unavailable DR CHRISTINA ROBLERO Consulting Unavailable DR PATIENCE MORTENSEN Primary Care Unavailable LORRI BERRY Consulting Unavailable Unavailable Primary Care Provider UnavailMD Patience Ramirez Primary Care Provider [phone] MD Jose Guadalupe Costa Attending Provider Unavailable MARSHA LANDA Attending Unavailable Oscar MCKEON Attending Unavailable Jose Guadalupe Costa Attending Unava ilable Jose Guadalupe Costa Admitting Unava ilable Patience Mortensen Primary Care Unavailable BETHANY EM Attending Unavailable LINDA MUÑOZ Referring Unavailable Medications Current Medications Medication Drug Class(es) Dates Sig (Normalized) Sig (Original) busPIRone hydrochloride 5 mg oral tablet (6 sources) Start: 09-14-2023 End: 10-12-2023 take 5 mg by mouth twice daily Buspirone Active 5 MG PO Twice daily 180 90 October 12, 2023 8:51am estradiol 0.5 mg oral tablet (3 sources) Estrogen Start: 09-14-2023 take 0.5 mg by mouth once daily Estradiol Active 0.5 MG PO Daily September 14, 2023 1:00am LORazepam 0.5 mg oral tablet (5 sources) Benzodiazepine Start: 09-14-2023 take 1 tablet [...] Sig (Original) baclofen 10 mg oral tablet (5 sources) gamma-Aminobutyri c Acid-ergic Agonist Start: 09-14-2023 [...] Classification Problem Date Documented Da te Episodic/Chronic Abdominal pain (2 sources) Abdominal pain; Translations: [Unspecified abdominal pain] 02-26-2024 Episodic Anxiety disorders (5 sources) Anxiety; Translations: [Anxiety disorder, unspecified] Onset: 01-06-2015 09-14-2023 Chronic Cardiac dysrhythmias (6 sources) Palpitations; Translations: [Palpitations] 10-12-2023 Episodic Conditions associated with dizziness or vertigo (4 sources) Dizziness; Translations: [Dizziness and giddiness] 02-19-2024 Episodic Nonspecific chest pain (4 sources) Tight chest; Translations: [Other chest pain] 02-19-2024 Episodic Other connective tissue disease (3 sources) Pain in right leg; Translations: [PAIN IN RIGHT LEG] Onset: 10-20-2022 Episodic Other connective tissue disease (1 source) Pain in right lower limb; Translations: [Pain in right leg] 06-21-2023 Episodic Other gastrointestinal disorders (1 source) Abdominal bloating; Translations: [Abdominal distension (gaseous)] 02-26-2024 Episodic Other gastrointestinal disorders (1 source) Abdominal distension (gaseous); Translations: [Flatulence, eructation, and gas pain] 02-26-2024 Episodic Other nervous system disorders (1 source) [...] lipoid disorders] 10-12-2023 Episodic Residual codes; unclassified (10 sources) Patient encounter status; Translations: [Encounter for cosmetic surgery] 03-20-2023 Episodic Residual codes; unclassified (2 sources) Family history of cardiovascular disease in first degree male relative less than 55 years of age; Translations: [Family history of ischemic heart disease and other diseases of the circulatory system] 02-19-2024 Episodic Residual codes; unclassified (2 sources) Family history of ischemic heart disease and other diseases of the circulatory system; Translations: [Family history of other cardiovascular diseases] 02-19-2024 Episodic Past or Other Problems Problem Classification Problem Date Documented Da te Episodic/Chronic Spondylosis; intervertebral disc disorders; other back problems (2 sources) Radiculopathy, lumbar region; Translations: [RADICULOPATHY LUMBAR REGION] Onset: 10-26-2022 Episodic Results Test Name Value Interpretation Reference Range Facil dwaine BUTLEROVon 06-21-2023 CNOV [facility] SOCORRO GALLAGHER ([id number]) 1970 F Date Time Provider Department 06/21/23 8:00 AM MARSHA LANDA [facility] During your visit today, we recorded the following information about you: Weight Height 64 kg 1.6 m Marsha Landa APRN.RUBEN 06/21/2023 9:30 AM Signed [facility] [...] under the care of pain management in [facility] where she recently underwent a right gluteal nerve block without improvement in symptoms. She states that at postinjection follow-up she was offered a piriformis injection but is reluctant to proceed. She reports that she recently had an EMG completed. EMG results were not available at time of today's appointment. 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 Normal [facility] XR pre/post mri xrayon 03-23 XR pre/post mri xray [facility] Main [place] [address] [place] [id number] MRI Report Signed Patient: Missy Gallagher MR#: [id number] 165 : 1970 Acct:[id number] Age/Sex: 52 / F ADM Date: 03/23/23 Loc: [facility] Room: Type: [facility] CLI Attending Dr: Jose Guadalupe Cotsa MD Copies to: Jose Guadalupe Costa Ordering Provider: Jose Guadalupe Costa Date of Service: 03/23/23 MR/MR lumbar spine wo con: LUMBAR RADICULOPATHY ([id number]) XR/XR pre/post mri xray: LUMBAR MRI MR [...] Austin Marsh M.D.03/23/2023 3:17 PM Dictation Location: [facility]14 Transcribed By: [facility] 03/23/23 151 Dictated By: Austin Marsh II, MD 03/23/23 1512 Signed By: 03/23/23 1517 [facility] CNCOon 03-20-2023 CNCO Letter Text Normal [facility] CNOVon 03-20-2023 CNOV Office Visit (PLASAV ) SOCORRO GALLAGHER ([id number]) 1970 F Date Time Provider Department 03/20/23 [...] Status:Closed by Oscar MCKEON on 03/20/23 Normal [facility] BI MAMMOGRAM SCREENING BILAT Natasha 03-16-2023 BI MAMMOGRAM SCREENING BILATERAL This is [...] IS VERY IMPORTANT TO YOUR HEALTH. THE [place] [employer] GUIDELINES RECOMMEND THAT WOMEN 40 [...] - Ultrasound Reporton RAD - Ultrasound Report [id number]#1 .00CD:[address] [facility] Coding Summary.on 07-31-2020 Coding Summary. CODING DATE: 07/31/2020 FINAL [facility] STATUS: Home (Routine DC) PAYOR: Medical [employer] DESCRIPTION 5373 Level 3 Urology and [...] So [place] Date Saved: 07/31/2020 12:41 pm [facility] Consent for Procedure/Surger yon 07-30-2020 Consent for Procedure/Surgery [id number]# 1.00CD:127 [facility] Consent for Treatmenton 07-11 Consent for Treatment [id number] .00CD:127 [facility] Discharge Instructionson Discharge Instructions [id number]# 1.00CD:127 [facility] History and Physicalon 07-30 History and Physical [id number]# 1.00CD:127 [facility] IntraOperative Documentson 0 07-30-2020 IntraOperative Documents [id number]# 1.00CD:127 [facility] Main OR Intraoperative Recor don 07-30-2020 Main OR Intraoperative Record IntraOp Document Type FTURO Summary Primary Physician: Facundo Fam Jr., MD Finalized Date/Time: 07/30/20 13:50:41 Pt. Name: MISSY GALLAGHER D.O.B./Sex: 1970 Female Med Rec #: [id number] Physician: Facundo Fam Jr., MD Financial #: [id number] Pt. Type: O Room/Bed: / Admit/Disch: 07/30/20 13:06:47 - Institution: Case Times FTURO Entry 1 Patient Times In Room 07/30/20 13:40:00 Out Room 07/30/20 13:51:00 Procedure Times Start 07/30/20 13:46:00 Stop 07/30/20 13:47:00 Anesthesia Times Last Modified By: LYNSEY Macias RN, Lou Ann 07/30/20 13:50:14 Case Attendance FTURO Entry 1 Entry 2 Entry 3 Case Attendee Sarwat Yadav MD, Facundo Macias RN, CNOR, Diana Mei CST, Marisela Reeves Role Performed Surgeon - Primary Aeronautical Research Engineer - Primary Scrub - Primary Time In 07/30/20 13:40:00 07/30/20 13:40:00 07/30/20 13:40:00 Time Out 07/30/20 13:51:00 07/30/20 13:51:00 07/30/20 13:51:00 Procedure CYSTOSCOPY LOCAL WITH CYSTOSCOPY LOCAL WITH CYSTOSCOPY LOCAL WITH URETHRAL DILATION(.) URETHRAL DILATION(.) URETHRAL DILATION(.) Comments Last Modified By: Colleen STONER, LUKEORDiana RN, LUKEORDiana RN, Diana MENON 07/30/20 13:50:29 07/30/20 13:50:29 07/30/20 13:50:29 Surgical Procedures FTURO Entry 1 Procedure Description Procedure CYSTOSCOPY LOCAL WITH Modifiers . URETHRAL DILATION Surgeon Description CYSTOSCOPY WITH URETHRAL DILATION- 24-30 Primary Procedure Yes Primary Surgeon Facundo Fma Jr., MD Start 07/30/20 13:46:00 Stop 07/30/20 [...] MD, Verified (If Participants LYNSEY Macias RN, Lou Applicable) Hamida Avilez CST, Gwen E Time [...] Macias RN, Lou Ann 07/30/20 13:[address] [facility] Main OR Preoperative Recordo n 07-30-2020 Main OR Preoperative Record Holding Area Document Type FTURO Summary Primary Physician: Facundo Fam Jr., MD Finalized Date/Time: 07/30/20 13:41:28 Pt. Name: MISSY GALLAGHER/Sex: 1970 Female Med Rec #: [id number] Physician: Facundo Fam Jr., MD Financial #: [id number] Pt. Type: O Room/Bed: / Admit/Disch: 07/30/20 13:06:47 - Institution: Case Times Holding FTURO Pre-Care Text: Verifies consent for planned procedure, identifies individual values and wishes concerning care, includes family members in perioperative teaching Secures patient's records' belongings, and valuables, maintains patient's dignity and privacy, and maintains patient confidentiality Entry 1 In Holding 07/30/20 13:19:00 Outcomes Met? Yes Last Modified By: Kirstie WOOD Missy 07/30/20 13:19:37 Post-Care Text: The patient participates [...] Macias RN, Lou Ann 07/30/20 13:[address] [facility] Operative Reporton Operative Report Patient: MISSY [...] urine. The Urethra was dilated to: 28 Portuguese w/ sounds. Devices Implanted: None. Removal: Cystoscope is removed, The patient tolerated it well. Postoperative Information Discharge: Patient is discharged home with antibiotic coverage, Follow up arranged. Normal [facility] Comment on above: Result Comment: Elec tronically Signed By: Sarwat Yadav MD, Facundo Bose.mickey\Date and Time Signed: 07/30/20 13:51 EST Patient [...] have a fever over [address] [facility] Ambulatory Clinical Summaryo n 07-21-2020 Ambulatory Clinical Summary {[id number]}CD:[id number] Normal [facility] Ambulatory Clinical Summary {[id number]}CD:[id number] Normal [facility] Patient Educationon 07-21-19 Patient Education Urinary Tract Infection Urinary tract [...] Document Reviewed: 08/03/2012 ExitCare? Patient Information ?[address] [employer] [facility] Urology Office/Clinic Noteon 07-21-2020 Urology Office/Clinic [...] Will order Local anesthesia. ABX sent to [facility] in [place]. Ordered: Urology Procedure Order US Renal 2. [...] day(s), # 2 tab(s), Refills(s) 0, Pharmacy: [id number], 162, cm, 07/21/20 13:48:00 EST, Height/Length Dosing, 68.5, kg, 07/21/20 13:48:00 EST, Weight Dosing Urnls Dip Stick Auto w/o Microscopy POC 42562 I have reviewed the previous health record information and history for this pt. from Dr. Fam. Follow-up With When Contact Information Sarwat Yadav MD, Facundo Felix [address] [place] [address] [address] Additional Instructions: Patient Education Urinary Tract Infection [...] Protein Urine Dipstick: Negative (07/21/20 13:39:00) Specific [place] Urine Dipstick: 1.020 (07/21/20 13:39:00) Urine Appearance [...] she is been treated with Bactrim DS. [facility] Comment on above: Result Comment: Elec tronically Signed By: Sarwat Yadav MD, Facundo Felix\.br\Date and Time Signed: 07/21/20 14:42 EST\.br\Electronically Co-Signed By: Lety Marino MA\.br\Date and Time Co-Signed: 07/21/20 14:31 EST Vital Signs Date Time Vital Sign Value Performing Clinician Luke manzano 02-26-2024 13:040 Body height 160.02 cm [facility] 02-26-2024 13:040 Body mass index (BMI) [Ratio] 25.1 kg/m2 [facility] 02-26-2024 13:040 Body weight 64.41 kg [facility] 02-26-2024 13:040 Diastolic blood pressure 70 mm[Hg] [facility] 02-26-2024 13:28-0400 Heart rate 80 /min [facility] 02-26-2024 13:28-0400 SaO2% (BldA) [Mass fraction] 98 % [facility] 02-26-2024 13:28-0400 Systolic blood pressure 130 mm[Hg] [facility] 02-19-2024 15:29-0400 Body height 160.02 cm [facility] 02-19-2024 15:29-0400 Body mass index (BMI) [Ratio] 25.3 kg/m2 [facility] 02-19-2024 15:29-0400 Body weight 64.86 kg [facility] 02-19-2024 15:29-0400 Diastolic blood pressure 80 mm[Hg] [facility] 02-19-2024 15:29-0400 Heart rate 87 /min [facility] 02-19-2024 15:29-0400 SaO2% (BldA) [Mass fraction] 98 % [facility] 02-19-2024 15:29-0400 Systolic blood pressure 136 mm[Hg] [facility] 10-12-2023 08:26-0400 Body height 160.02 cm [facility] 10-12-2023 08:26-0400 Body mass index (BMI) [Ratio] 25.1 kg/m2 [facility] 10-12-2023 08:26-0400 Body weight 64.41 kg [facility] 10-12-2023 08:26-0400 Diastolic blood pressure 78 mm[Hg] [facility] 10-12-2023 08:26-0400 Heart rate 78 /min [facility] 10-12-2023 08:26-0400 SaO2% (BldA) [Mass fraction] 98 % [facility] 10-12-2023 08:26-0400 Systolic blood pressure 112 mm[Hg] [facility] 09-14-2023 09:36-0500 Body height 160.02 cm [facility] 09-14-2023 09:36-0500 Body mass index (BMI) [Ratio] 24.6 kg/m2 [facility] 09-14-2023 09:36-0500 Body weight 63.04 kg [facility] 09-14-2023 09:36-0500 Diastolic blood pressure 82 mm[Hg] [facility] 09-14-2023 09:36-0500 Heart rate 88 /min [facility] 09-14-2023 09:36-0500 SaO2% (BldA) [Mass fraction] 98 % [facility] 09-14-2023 09:36-0500 Systolic blood pressure 118 mm[Hg] [facility] 06-21-2023 07:56-0500 Body height 160 cm Marsha Landa DENTIST ATTENDANT.CABINET PROFESSIONAL Work Phone: [facility] 06-21-2023 07:56-0500 Body weight 63.96 kg Marsha Landa DENTIST ATTENDANT.CABINET PROFESSIONAL Work Phone: [facility] 03-20-2023 08:57-0400 Body height 160 cm NA Ramón AGUIRRE Work Phone: [facility] 03-20-2023 08:57-0400 Body weight 61.24 kg NA Ramón AGUIRRE Work Phone: [facility] Encounters Encounter Date Encounter Type Care Provider Facility Start: 02-26-2024 End: 02-26-2024 ambulatory [facility] Work Phone: Start: 02-26-2024 End: 02-26-2024 Patient encounter procedure [facility] Physician [facility] Work Phone: Start: 02-19-2024 End: 02-19-2024 ambulatory [facility] Work Phone: Start: 02-19-2024 End: 02-19-2024 Patient encounter procedure [facility] Physician [facility] Work Phone: Start: 10-26-2023 End: 10-26-2023 ambulatory BETHANY EM Not Available Start: 10-12-[address] [facility] Start: 10-12-2023 End: 10-12-2023 ambulatory [facility] Work Phone: Start: 10-12-2023 End: 10-12-2023 Encounter for general adult medical examination without abnormal findings [facility] Start: 10-12-2023 End: 10-12-2023 Patient encounter procedure [facility] Physician [facility] Work Phone: Start: 09-14-2023 End: 09-14-2023 Patient encounter procedure [facility] Physician [facility] Work Phone: Start: 06-21-2023 End: 06-21-2023 ambulatory MARSHA LANDA Facility:[facility] Start: 06-21-2023 End: 06-21-2023 Patient encounter procedure Marsha Landa DENTIST ATTENDANT.CABINET PROFESSIONAL Work Phone: [facility] Comment on above: Right leg pain (Prim antonietta Dx); Numbness and tingling of right lower extremity; Piriformis syndrome, right Start: 06-12-2023 End: 06-13-2023 ambulatory LINDA MUÑOZ Not Available Start: 03-23-2023 End: 03-23-2023 ambulatory Narendranath Lakshmipathy Facility:[facility] Start: 03-23-2023 End: 03-23-2023 ambulatory MD Patience Mortensen Work Phone: [facility] Work Phone: Start: 03-23-2023 End: 03-23-2023 Patient encounter procedure MD Patience Mortensen Work Phone: [facility] [address] Work Phone: Start: 03-20-2023 End: 03-20-2023 ambulatory Oscar MCKEON Facility:[facility] Start: 03-20-2023 End: 03-20-2023 Patient encounter procedure [...] for malignant neoplasm of breast Mammogram Screening [facility] Start: 03-10-2023 Influenza vaccination [facility] Start: 07-10-2022 DEPRESSION ASSESSMENT DEPRESSION ASSESSMENT [facility] Start: 2020 SHINGRIX VACCINE (1 of 2) SHINGRIX VACCINE (1 of 2) [facility] Start: 12-07-2015 COLOGUARD (FIT-DNA) COLOGUARD (FIT-DNA) [facility] Start: 12-07-2015 Colonoscopy COLONOSCOPY [facility] Start: 12-07-2015 COLORECTAL CANCER SCREENING COLORECTAL CANCER SCREENING [facility] Start: 12-07-[address] COLONOGRAPHY [facility] Start: 12-07-2015 DIABETES SCREEN DIABETES SCREEN [facility] Start: 12-07-2015 Diabetes Screening Diabetes Screening [facility] Start: 12-07-2015 FECAL OCCULT BLOOD FECAL OCCULT BLOOD [facility] Start: 12-07-2015 Lipid panel Lipid Screening [facility] Start: 12-07-2015 LIPID SCREEN LIPID SCREEN [facility] Start: 12-07-2015 Screening for malignant neoplasm of colon [facility] Start: 12-07-2015 SIGMOIDOSCOPY SIGMOIDOSCOPY [facility] Start: 2010 Mammography MAMMOGRAM [facility] Start: 2000 HPV TESTING HPV TESTING [facility] Start: 2000 Screening for malignant neoplasm of cervix HPV Testing [facility] Start: 12-07-1991 PAP TESTING PAP TESTING [facility] Start: 12-07-1991 Screening for malignant neoplasm of cervix Pap Testing [facility] Start: 1989 Urine microalbumin profile [facility] Start: 1988 HEPATITIS C SCREENING HEPATITIS C SCREENING [facility] Start: 1988 Hepatitis C screening Hepatitis C Screening [facility] Start: 1988 HIV SCREENING HIV SCREENING [facility] Start: 1988 HIV screening HIV Screening [facility] Start: 06-08-1971 COVID-19 VACCINE (#1) COVID-19 VACCINE (#1) [facility] Start: 1970 HEPATITIS B (1 of 3 - 3-dose series) HEPATITIS B (1 of 3 - 3-dose series) [facility] Start: 1970 Hepatitis B Vaccine (1 of 3 - 3-dose series) Hepatitis B Vaccine (1 of 3 - 3-dose series) [facility] Cardiovascular stres s testing [facility] Comprehensive metabo lic 2000 panel - Serum or Plasma [facility] Abdomen limited [facility] US Pelvis [facility] Immunizations Immunization Date Immunization Notes Care Provider Fa cility 02-28-[address] [facility] 11-03-2020 COVID-19 Ad26.COV2.S (Anabell) [facility] Payers Date Payer Category Payer Unknown [id number] 2023 Self-pay [id number] 2022 Unknown MMO MMO [employer] PPO [id number] 2022-Present [phone] [address] [place] [address] PPO [id number] 1970 Unknown [id number] 1970 Unknown [id number] 1970 Unknown [id number] 1970 Unknown [id number] 1959 Unknown [id number] 1959 Unknown [id number] Unknown [id number] Social History Date Type Detail Facility Tobacco smoking stat RUSTIS Tobacco smoking consumption unknown [facility] Start: 03-14-2023 End: 06-19-2023 History of Social function [facility] Start: 03-14-2023 End: 06-19-2023 Area Deprivation Index [facility] National Score (1-10 0), lower number is lower risk 61 [facility] Start: 1970 Sex Assigned At Not on file C [facility] Start: 1970 Sex Assigned At Female F [facility] Start: 10-12-2023 Tobacco smoking stat RUSTIS Never smoked tobacco (finding) [facility] Clinical Notes 01-06-2015 to 06-21-2023 Marsha Landa APRN.CABINET PROFESSIONAL - 06/21/2023 8:00 AM Oscar Alamo MD - 03/20/2023 8:56 AM EDT Note Date & Type Note Facility 06-21-2023 Note HNO ID: [id number] Author: Marsha Landa APRN.CABINET PROFESSIONAL Service: ? Author Type: Nurse Practitioner Type: [...] under the care of pain management in [facility] where she recently underwent a right gluteal nerve block without improvement in symptoms. She states that at postinjection follow-up she was offered a piriformis injection but is reluctant to proceed. She reports that she recently had an EMG completed. EMG results were not available at time of today's appointment. 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 [facility] 06-21-2023 History of Present illness Narrative [...] under the care of pain management in [facility] where she recently underwent a right gluteal nerve block without improvement in symptoms. She states that at postinjection follow-up she was offered a piriformis injection but is reluctant to proceed. She reports that she recently had an EMG completed. EMG results were not available at time of today's appointment. 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 Author Type: Physician Type: Progress Notes Filed: 03/20/2023 11:53 AM Note Text: Ms. Soocrro Gallagher is a 52 year old, female [...] - abdomen, +/- flanks. Oscar Mckeon MD [facility] 03-20-2023 History of Present illness Narrative [...] Oscar Mckeon MD documented in this encounter [facility] 10-20-2022 Note CONSULTATION CONSULTATION DATE: 10/20/2022 TO: [...] our patients to inform us about any [id number] medications or herbal remedies/nutritional supplements/alternative remedies. 2. [...] options with their primary care provider. [facility] 10-11-2022 Note PROCEDURE: XR ANKLE RT [...] authenticated by: CHRISTINA ROBLERO Date: 2022-10-11 11:33 [facility] 10-11-2022 Note PROCEDURE: XR ANKLE RT [...] by: CHRISTINA ROBLERO Date: 2022-10-11 11:33 [facility] 01-06-2015 Evaluation note Diagnosis Onset Date Anxiety January 06, 2015 acute Anxiety January 06, 2015 acute Palpitations acute Screening for lipid disorders acute Screening for metabolic disorder acute Screening, deficiency anemia , iron acute Wellness examination acute [facility] Work Phone: Evaluation note* Diagnosis Encounter for cosmetic surgery- Primary Other plastic surgery for unacceptable cosmetic appearance [facility]No assessment [facility]* Diagnosis Right leg pain- Primary Pain in limb Numbness and tingling of right lower extremity Piriformis syndrome, right documented in this [facility]* Diagnosis Onset Date Resolution Status Chest tightness acute Dizziness acute Family history of heart dise ase in male family member before age 55 acute Palpitations acute [facility] Work Phone: Evaluation note* Diagnosis Onset Date Resolution Status Chest tightness acute Dizziness acute Family history of heart dise ase in male family member before age 55 acute Palpitations acute Abdominal pain acute Bloating acute [facility] Work Phone: Summary Purpose Family History Relationship [...] male family member before age 55 Palpitations Chief Complaint no appatite, no ener gy, not feel well dicuss more about pain under ribs Reason for Visit Chest tightness Dizziness Family history of heart disease in male family member before age 55 Palpitations Abdominal pain Bloating Additional Source Comments INFORMATION SOURCE (unrecogn ized section and content) DATE CREATED AUTHOR 09/08/2020 [facility] DATE CREATED AUTHOR AUTHOR'S ORGANIZ ATION 10/27/2022 [facility] DATE CREATED AUTHOR AUTHOR'S ORGANIZ ATION 06/23/2023 [facility] DATE CREATED AUTHOR AUTHOR'S ORGANIZ ATION 06/25/2023 [facility] DATE CREATED AUTHOR AUTHOR'S ORGANIZ ATION 10/27/2023 [facility] EPIC Source Comments (unrecognize d section and content) In the event this informatio n is protected by the Federal Confidentiality of Alcohol and Drug Abuse Patient Records regulations: The Federal rules restrict any use of the information to criminally investigate or prosecute any alcohol or drug abuse patient.[facility] the event this information is protected by the Federal Confidentiality of Alcohol and Drug Abuse Patient Records regulations: The Federal rules restrict any use of the information to criminally investigate or prosecute any alcohol or drug abuse patient.[facility] Reason for Visit (unrecogniz ed section and [...] Member Role Status Dates Genevieve Feng APRN 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 DESIGNER-C Primary Care Provider Active Team Status: Inactive Member Role Status Dates Patience Mortensen MD Primary Care Provider Active Start: September 14, 2023 End: September 14, 2023 Genevieve Feng APRN 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 DESIGNER-C Attending Provider Act star Start: September 14, 2023 End: September 14, 2023 Team Status: Inactive Member Role Status Dates Patience Mortensen MD Primary Care Provider Active Start: October 12, 2023 End: October 12, 2023 Genevieve Feng APRN 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 DESIGNER-C Attending Provider Act star Start: October 12, 2023 End: October 12, 2023 Team Status: Inactive Member Role Status Dates Genevieve Feng APRN 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 DESIGNER-C Primary Care Provider, Attending Provider Active Start: February 19, 2024 End: February 19, 2024 Team Status: Inactive Member Role Status Dates Genevieve Feng APRN 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 DESIGNER-C Primary Care Provider, Attending Provider Active Start: February 26, 2024 End: February 26, 2024 Goals (unrecognized section and content) Goals [...] BE BASED ON THE PRIMARY CLINICAL RECORDS. [facility]. provides no warranty or guarantee of the accuracy or completeness of information in this document.
--- NOTE | 2024-02-29 07:26 | US_ITS ---
The [address] [address] Patient Name: YURI SMITH MRN: [id number] date: 1970 Sex: F Assigned Patient Location: Current Patient Location: US Accession/Order Number: [id number] Exam Date: 02/29/2024 07:30 Report Date: 02/29/2024 09:26 At the request of: DANAY BLACKMON Procedure: US pelvis transvaginal EXAMINATION: US pelvis transvaginal HISTORY: Abdominal pain and bloating COMPARISON: No relevant comparison available. TECHNIQUE: Transabdominal and/or transvaginal sonographic examination was performed as indicated by examination type. FINDINGS: UTERUS: Hysterectomy. RIGHT OVARY: Not seen. No suspicious adnexal findings. . LEFT OVARY: Contains a 3.5 cm benign-appearing cyst. Duplex Doppler demonstrates normal waveform and flow; resistive index 0.5. Ovary size: 4.5 x 4.2 x 4.0 cm CUL-DE-SAC: Unremarkable. No significant free fluid. BLADDER: Unremarkable. OTHER: None. US/US pelvis transvaginal IMPRESSION: 1. Left ovary contains a 3.5 cm benign-appearing cyst. No evidence of torsion or acute findings. 2. Prior hysterectomy. Electronically authenticated by: CHRISTINA ROBLERO Date: 02/29/2024 09:26
== END 2024-02-29 06:56 | disposition home or self-care (01) ==
LOC: US 06:55
PROVIDERS: PCP Nurse Practitioner Family; Visit Provider Nurse Practitioner Family
DX: R14.0 Abdominal distension (gaseous) (principal); R10.9 Unspecified abdominal pain; N83.292 Other ovarian cyst, left side
CPT/HCPCS: 76700; 76830

== ENCOUNTER 2024-03-13 16:07 | Outpatient (OUT) | payer OTHER, SELFPAY ==
--- OUTSIDE RECORDS SUMMARY | 2024-03-13 16:11 | XMS_ITS | CCD ---
Author Organization [facility] Care Team Providers Care Domestic Violence Counselor Name Role Phone DR PATIENCE MORTENSEN Primary Care Unavailable LAKSHMIPATHY ., NARENDRANATH Admitting Mariella vailable LAKSHMIPATHY ., NARENDRANATH Consulting Mariella vailable LAKSHMIPATHY ., JOSE GUADALUPE Attending Mariella vailable LORRI BERRY Admitting Unavailable LORRI BERRY Attending Unavailable DR CHRISTINA ROBLERO Consulting Unavailable DR PATIENCE MORTENSEN Primary Care Unavailable LORRI BERRY Consulting Unavailable Unavailable Primary Care Provider UnavailMD Patience Ramirez Primary Care Provider MD Jose Guadalupe Costa Attending Provider Unavailable MARSHA LANDA Attending Unavailable Oscar MCKEON Attending Unavailable Jose Guadalupe Costa Attending Unava ilable Igor, Jose Guadalupe Admitting Unava ilable Patience Mortensen Primary Care Unavailable SEDA DOUGLASS Attending Unavailable BETHANY EM Attending Unavailable LINDA MUÑOZ Referring Unavailable LINDA MUÑOZ Attending Unavailable LINDA MUÑOZ Referring Unavailable Medications [...] and giddiness] 02-19-2024 Episodic Nonspecific chest pain (6 sources) Tight chest; Translations: [Other chest pain] Onset: 03-04-2024 02-19-2024 Episodic Other connective tissue disease (3 [...] Results Test Name Value Interpretation Reference Range Facility DEXA BONE DENSITYon 03-12-20 DEXA BONE DENSITY FINDINGS: Dual Femur bone density obtained with a CircuLite whole body system: Region BMD Young-Adult Age-Matched Total (g/cm2) (%) T-Score (%) Z-Score Mean 0.650 77 -1.8 87 -0.8 IMPRESSION: Impression: The mean BMD and corresponding T-score indicated above indicate Low Bone Mass (Osteopenia) and places the patient at a mild to moderate increased risk for fracture. There may be a future risk of developing osteoporosis. FINDINGS: AP Spine bone density obtained with a CircuLite whole body system: Region BMD Young-Adult Age-Matched Total (g/cm2) (%) T-Score (%) Z-Score L1-L4 0.939 90 -1.0 100 0.0 Impression: The mean BMD and corresponding T-score indicated above indicate Low Bone Mass (Osteopenia) and places the patient at a mild to moderate increased risk for fracture. There may be a future risk of developing osteoporosis. Comment: The T-score is the primary focus of the interpretation of a patient?s bone mineral density measurement. The T-score is the number of standard deviations an individual is above or below the mean value for a young female having normal bone mass. The WHO defines osteoporosis based on the T-score value? +1.0 to ?0.9: Normal bone mass -1.0 to -2.5: Osteopenia and thus may be at future risk of fracture -2.6 to ?5: Osteoporosis and ?at significantly increased risk of fracture? TRANSCRIBED BY: ELECTRONICALLY SIGNED BY: Rod Love MD Normal Not Available Orders Onlyon 03-04-2024 Orders Only [id number] Missy Gallagher 1970 F Date Provider Department Center 03/04/2024 TANISHA ANDINO [facility] Family History Problem Relation Age of Onset No Known Problems Mother Heart attack Father Coronary artery disease Father's Brother Stroke Paternal Grandfather Family Status - Relation Status Age at Mother Father Father's Brother Paternal Grandfather Normal [facility] CNOVon 06-21-2023 [facility] Office Visit ([facility] ) SOCORRO GALLAGHER ([id number]) 1970 F Date Time Provider Department 06/21/23 8:00 AM MARSHA LANDA [facility] During your visit today, we recorded the following information about you: Weight Height 64 kg 1.6 m Marsha Landa APRN.CORPORATE ANALYST 06/21/2023 9:30 AM Signed [facility] [...] under the care of pain management in [facility] where she recently underwent a right gluteal nerve block without improvement in symptoms. She states that at postinjection follow-up she was offered a piriformis injection but is reluctant to proceed. She reports that she recently had an EMG completed. EMG results were not available at time of today's appointment. 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 Normal [facility] XR pre/post mri xrayon 03-23 XR pre/post mri xray [facility] Main [place] [address] [place] [id number] MRI Report Signed Patient: Missy Gallagher MR#: [id number] 165 : 1970 Acct:[id number] Age/Sex: 52 / F ADM Date: 03/23/23 Loc: [facility] Room: Type: [facility] Attending Dr: Jose Guadalupe Costa MD Copies to: Jose Guadalupe Costa Ordering Provider: Jose Guadalupe Costa Date of Service: 03/23/23 MR/MR lumbar spine wo con: LUMBAR RADICULOPATHY ([id number]) XR/XR pre/post mri xray: LUMBAR MRI MR [...] Austin Marsh M.D.03/23/2023 3:17 PM Dictation Location: [place] [address] Transcribed By: [facility] 03/23/23 151 Dictated By: Austin Marsh II, MD 03/23/23 1512 Signed By: 03/23/23 1517 [facility] CNCOon 03-20-2023 CNCO Letter Text [facility] CNOVon 03-20-2023 CNOV Office Visit ([facility] ) OSCORRO GALLAGHER ([id number]) 1970 F Date Time Provider Department 03/20/23 [...] Status:Closed by Oscar MCKEON on 03/20/23 Normal [facility] BI MAMMOGRAM SCREENING BILAT Natasha 03-16-2023 [...] IS VERY IMPORTANT TO YOUR HEALTH. THE [employer] GUIDELINES RECOMMEND THAT WOMEN 40 [...] - Ultrasound Reporton RAD - Ultrasound Report [id number] .00CD:127 Normal [facility] Coding Summary.on 07-31-2020 Coding Summary. CODING DATE: 07/31/[address] [facility] STATUS: Home (Routine DC) PAYOR: [employer] DESCRIPTION 5373 Level 3 Urology and [...] Valle Date Saved: 07/31/2020 12:[address] [facility] Consent for Procedure/Surger yon 07-30-2020 Consent for Procedure/Surgery [id number]# 1.00CD:127 Normal [facility] Consent for Treatmenton 07-11 Consent for Treatment [id number] .00CD:127 [facility] Discharge Instructionson Discharge Instructions [id number]# 1.00CD:127 [facility] History and Physicalon 07-30 History and Physical [id number]# 1.00CD:127 [facility] IntraOperative Documentson 0 07-30-2020 IntraOperative Documents [id number]# 1.00CD:127 [facility] Main OR Intraoperative Recor don 07-30-2020 Main OR Intraoperative Record IntraOp Document Type FTURO Summary Primary Physician: Facundo Fam Jr., MD Finalized Date/Time: 07/30/20 13:50:41 Pt. Name: MISSY GALLAGHER/Sex: 1970 Female Med Rec #: [id number] Physician: Sarwat Yadav MD, Facundo Felix Financial #: [id number] Pt. Type: O Room/Bed: / Admit/Disch: 07/30/20 13:06:47 - Institution: Case Times FTURO Entry 1 Patient Times In Room 07/30/20 13:40:00 Out Room 07/30/20 13:51:00 Procedure Times Start 07/30/20 13:46:00 Stop 07/30/20 13:47:00 Anesthesia Times Last Modified By: LUKE Macias RNOR, Diana Avilez 07/30/20 13:50:14 Case Attendance FTURO Entry 1 Entry 2 Entry 3 Case Attendee Sarwat Yadav MD, Facundo Macias RN, CNOR, Diana Mei CST, Marisela Reeves Role Performed Surgeon - Primary Scrap Hooker - Primary Scrub - Primary Time In 07/30/20 13:40:00 07/30/20 13:40:00 07/30/20 13:40:00 Time Out 07/30/20 13:51:00 07/30/20 13:51:00 07/30/20 13:51:00 Procedure CYSTOSCOPY LOCAL WITH CYSTOSCOPY LOCAL WITH CYSTOSCOPY LOCAL WITH URETHRAL DILATION(.) URETHRAL DILATION(.) URETHRAL DILATION(.) Comments Last Modified By: Colleen STONER, Diana MENON RN, LUKEOR, Diana Macias RN, Diana MENON 07/30/20 13:50:29 07/30/20 13:50:29 07/30/20 13:50:29 Surgical Procedures FTURO Entry 1 Procedure Description Procedure CYSTOSCOPY LOCAL WITH Modifiers . URETHRAL DILATION Surgeon Description CYSTOSCOPY WITH URETHRAL DILATION- 24-30 Primary Procedure Yes Primary Surgeon Facundo Fam [...] Macias RN, Lou Ann 07/30/20 13:50 Normal [facility] Main OR Preoperative Recordo n 07-30-2020 Main OR Preoperative Record Holding Area Document Type FTURO Summary Primary Physician: Facundo Fam Jr., MD Finalized Date/Time: 07/30/20 13:41:28 Pt. Name: MISSY GALLAGHER/Sex: 1970 Female Med Rec #: [id number] Physician: Facundo Fam Jr., MD Financial #: [id number] Pt. Type: O Room/Bed: / Admit/Disch: 07/30/20 [...] Macias RN, Lou Ann 07/30/20 13:41 Normal [facility] Operative Reporton Operative Report Patient: MISSY [...] urine. The Urethra was dilated to: 28 Swedish w/ sounds. Devices Implanted: None. Removal: Cystoscope is removed, The patient tolerated it well. Postoperative Information Discharge: Patient is discharged home with antibiotic coverage, Follow up arranged. Normal [facility] Comment on above: Result Comment: Elec tronically Signed By: Sarwat Yadav MD, Facundo Felix\.mickey\Date and Time Signed: 07/30/20 13:51 EST Patient [...] have a fever over 100 degrees Normal [facility] Ambulatory Clinical Summaryo n 07-21-2020 Ambulatory Clinical Summary {[id number]}CD:[id number] Normal [facility] Ambulatory Clinical Summary {[id number]}CD:[id number] Normal [facility] Patient Educationon 07-21-19 21 Patient Education [...] Document Reviewed: 08/03/2012 ExitCare? Patient Information ?2013 [employer]. Li [facility] Urology Office/Clinic Noteon 07-21-2020 Urology Office/Clinic [...] Will order Local anesthesia. ABX sent to [facility] in [place]. Ordered: Urology Procedure Order US Renal 2. [...] day(s), # 2 tab(s), Refills(s) 0, Pharmacy: [facility]/pharmacy #[id number], 162, cm, 07/21/20 13:48:00 EST, Height/Length Dosing, 68.5, kg, 07/21/20 13:48:00 EST, Weight Dosing Urnls Dip Stick Auto w/o Microscopy POC [id number] I have reviewed the previous health record information and history for this pt. from Dr. Fam. Follow-up With When Contact Information Sarwat Yadav MD, Facundo [address] [place] [address]- Additional Instructions: Patient Education Urinary Tract Infection [...] Protein Urine Dipstick: Negative (07/21/20 13:39:00) Specific Zeigler Urine Dipstick: 1.020 (07/21/20 13:39:00) Urine Appearance [...] is been treated with Bactrim DS. [facility] Comment on above: Result Comment: Elec tronically Signed By: Sarwat Yadav MD, Facundo Felix\.br\Date and Time Signed: 07/21/20 14:42 EST\.br\Electronically Co-Signed By: Lety Marino MA\.br\Date and Time Co-Signed: 07/21/20 14:31 EST Vital Signs Date Time Vital Sign Value Performing Clinician Luke manzano 02-26-2024 13:040 Body height 160.02 cm [facility] 02-26-2024 13: Body mass index (BMI) [Ratio] 25.1 kg/m2 [facility] 02-26-2024 13: Body weight 64.41 kg [facility] 02-26-2024 13:040 Diastolic blood pressure 70 mm[Hg] [facility] 02-26-2024 13:28-0400 Heart rate 80 /min [facility] 02-26-2024 13:28-0400 SaO2% (BldA) [Mass fraction] 98 % [facility] 02-26-2024 13:28-0400 Systolic blood pressure 130 mm[Hg] [facility] 02-19-2024 15:29-0400 Body height 160.02 cm [facility] 02-19-2024 15:29-0400 Body mass index (BMI) [Ratio] 25.3 kg/m2 [facility] 02-19-2024 15:29-0400 Body weight 64.86 kg [facility] 02-19-2024 15:29-0400 Diastolic blood pressure 80 mm[Hg] [facility] 02-19-2024 15:29-0400 Heart rate 87 /min [facility] 02-19-2024 15:29-0400 SaO2% (BldA) [Mass fraction] 98 % [facility] 02-19-2024 15:29-0400 Systolic blood pressure 136 mm[Hg] [facility] 10-12-2023 08:26-0400 Body height 160.02 cm [facility] 10-12-2023 08:26-0400 Body mass index (BMI) [Ratio] 25.1 kg/m2 [facility] 10-12-2023 08:26-0400 Body weight 64.41 kg [facility] 10-12-2023 08:26-0400 Diastolic blood pressure 78 mm[Hg] [facility] 10-12-2023 08:26-0400 Heart rate 78 /min [facility] 10-12-2023 08:26-0400 SaO2% (BldA) [Mass fraction] 98 % [facility] 10-12-2023 08:26-0400 Systolic blood pressure 112 mm[Hg] [facility] 09-14-2023 09:36-0500 Body height 160.02 cm [facility] 09-14-2023 09:36-0500 Body mass index (BMI) [Ratio] 24.6 kg/m2 [facility] 09-14-2023 09:36-0500 Body weight 63.04 kg [facility] 09-14-2023 09:36-0500 Diastolic blood pressure 82 mm[Hg] [facility] 09-14-2023 09:36-0500 Heart rate 88 /min [facility] 09-14-2023 09:36-0500 SaO2% (BldA) [Mass fraction] 98 % [facility] 09-14-2023 09:36-0500 Systolic blood pressure 118 mm[Hg] [facility] 06-21-2023 07:56-0500 Body height 160 cm Marsha Landa SLD EDUCATIONAL AIDE.CORPORATE ANALYST Work Phone: [facility] 06-21-2023 07:56-0500 Body weight 63.96 kg Marsha Landa SLD EDUCATIONAL AIDE.CORPORATE ANALYST Work Phone: [facility] 03-20-2023 08:57-0400 Body height 160 cm JAM Mckeon MD Work Phone: [facility] 03-20-2023 08:57-0400 Body weight 61.24 kg NA Ramón AGUIRRE Work Phone: [facility] Encounters Encounter Date Encounter Type Care Provider Facility Start: 03-12-2024 ambulatory LINDA MUÑOZ Not Availa ble Start: 03-05-2024 End: 03-05-2024 ambulatory LINDA MUÑOZ Not Available Start: 03-04-2024 End: 03-04-[facility] Start: 02-26-2024 End: 02-26-2024 ambulatory [facility] Work Phone: Start: 02-26-2024 End: 02-26-2024 Patient encounter [facility] Work Phone: Start: 02-19-2024 End: 02-19-2024 ambulatory [facility] Work Phone: Start: 02-19-2024 End: 02-19-2024 Patient encounter procedure [facility] Physician [facility] Work Phone: Start: 10-26-2023 End: 10-26-2023 ambulatory BETHANY EM Not Available Start: 10-12-2023 Patient encounter status [facility] Start: 10-12-2023 End: 10-12-2023 ambulatory [facility] Work Phone: Start: 10-12-2023 End: 10-12-2023 Encounter for general adult medical examination without abnormal findings [facility] Start: 10-12-2023 End: 10-12-2023 Patient encounter procedure [facility] Physician [facility] Work Phone: Start: 09-14-2023 End: 09-14-2023 Patient encounter procedure [facility] Physician [facility] Work Phone: Start: 06-21-2023 End: 06-21-2023 ambulatory MARSHA LANDA Facility:[facility] Start: 06-21-2023 End: 06-21-2023 Patient encounter procedure Marsha Landa SLD EDUCATIONAL AIDE.CORPORATE ANALYST Work Phone: [facility] Comment on above: Right leg pain (Prim antonietta Dx); Numbness and tingling of right lower extremity; Piriformis syndrome, right Start: 06-12-2023 End: 06-12-2023 ambulatory LINDA TONI Not Available Start: 03-23-2023 End: 03-23-2023 ambulatory Narendranath Lakshmipathy Facility:[facility] Start: 03-23-2023 End: 03-23-2023 ambulatory MD Patience Mortensen Work Phone: [facility] Work Phone: Start: 03-23-2023 End: 03-23-2023 Patient encounter procedure MD Patience Mortensen Work Phone: [facility] [address] Work Phone: Start: 03-20-2023 End: 03-20-2023 ambulatory Oscar MCKEON Facility:[facility] Start: 03-20-2023 End: 03-20-2023 Patient encounter [...] malignant neoplasm of breast Mammogram Screening [facility] Start: 03-10-2023 Influenza vaccination [facility] Start: 07-10-2022 DEPRESSION ASSESSMENT DEPRESSION ASSESSMENT [facility] Start: 2020 SHINGRIX VACCINE (1 of 2) SHINGRIX VACCINE (1 of 2) [facility] Start: 12-07-2015 COLOGUARD (FIT-DNA) COLOGUARD (FIT-DNA) [facility] Start: 12-07-2015 Colonoscopy COLONOSCOPY [facility] Start: 12-07-2015 COLORECTAL CANCER SCREENING COLORECTAL CANCER SCREENING [facility] Start: 12-07-[address] COLONOGRAPHY [facility] Start: 12-07-2015 DIABETES SCREEN DIABETES SCREEN [facility] Start: 12-07-2015 Diabetes Screening Diabetes Screening [facility] Start: 12-07-2015 FECAL OCCULT BLOOD FECAL OCCULT BLOOD [facility] Start: 12-07-2015 Lipid panel Lipid Screening [facility] Start: 12-07-2015 LIPID SCREEN LIPID SCREEN [facility] Start: 12-07-2015 Screening for malignant neoplasm of colon [facility] Start: 12-07-2015 SIGMOIDOSCOPY SIGMOIDOSCOPY [facility] Start: 2010 Mammography MAMMOGRAM [facility] Start: 2000 HPV TESTING HPV TESTING [facility] Start: 2000 Screening for malignant neoplasm of cervix HPV Testing [facility] Start: 12-07-1991 PAP TESTING PAP TESTING [facility] Start: 12-07-1991 Screening for malignant neoplasm of cervix Pap Testing [facility] Start: 1989 Urine microalbumin profile [facility] Start: 1988 HEPATITIS C SCREENING HEPATITIS C SCREENING [facility] Start: 1988 Hepatitis C screening Hepatitis C Screening [facility] Start: 1988 HIV SCREENING HIV SCREENING [facility] Start: 1988 HIV screening HIV Screening [facility] Start: 06-08-1971 COVID-19 VACCINE (#1) COVID-19 VACCINE (#1) [facility] Start: 1970 HEPATITIS B (1 of 3 - 3-dose series) HEPATITIS B (1 of 3 - 3-dose series) [facility] Start: 1970 Hepatitis B Vaccine (1 of 3 - 3-dose series) Hepatitis B Vaccine (1 of 3 - 3-dose series) [facility] Cardiovascular stres s testing [facility] Comprehensive metabo lic 2000 panel - Serum or Plasma [facility] Holter monitor study [facility] US Abdomen limited [facility] US Pelvis [facility] Immunizations Immunization Date Immunization Notes Care Provider Fa cility 02-28-2023 zoster vaccine recombinant [facility] 11-03-2020 COVID-19 Ad26.COV2.S (Anabell) [facility] Payers Date Payer Category Payer Unknown [id number] 2023 Unknown [id number] 2023 Self-pay [id number] 2022 Unknown MMO MMO [employer] PPO [id number] 2022-Present [phone] [address] [place] [address] PPO [id number] 1970 Unknown [id number] 1970 Unknown [id number] 1970 Unknown [id number] 1970 Unknown [id number] 1970 Unknown [id number] 1970 Unknown [id number] 1959 Unknown [id number] 1959 Unknown [id number] Unknown [id number] Social History Date Type Detail [facility] Start: 03-14-2023 End: 06-19-2023 History of Social function [facility] Start: 03-14-2023 End: 06-19-2023 Area Deprivation Index [facility] National Score (1-10 0), lower number is lower risk 61 [facility] Start: 1970 Sex Assigned At Not on file C [facility] Start: 1970 Sex Assigned At Female F [facility] Start: 10-12-2023 [facility] Never [facility] (finding) [facility] Clinical Notes 01-06-2015 to 03-04-2024 Marsha Landa APRN.CORPORATE ANALYST - 06/21/2023 8:00 AM Oscar Alamo MD - 03/20/2023 8:56 AM EDT Note Date & Type Note Facility 03-04-2024 Note case [facility] 06-21-2023 Note HNO ID: [id number] Author: Marsha Landa APRN.CORPORATE ANALYST Service: ? Author Type: Nurse Practitioner Type: [...] under the care of pain management in [facility] where she recently underwent a right gluteal nerve block without improvement in symptoms. She states that at postinjection follow-up she was offered a piriformis injection but is reluctant to proceed. She reports that she recently had an EMG completed. EMG results were not available at time of today's appointment. 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 [facility] 06-21-2023 History of Present illness Narrative [...] under the care of pain management in [facility] where she recently underwent a right gluteal nerve block without improvement in symptoms. She states that at postinjection follow-up she was offered a piriformis injection but is reluctant to proceed. She reports that she recently had an EMG completed. EMG results were not available at time of today's appointment. 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 Author [...] - abdomen, +/- flanks. Oscar Mckeon MD [facility] 03-20-2023 History of Present illness Narrative [...] Mckeon MD documented in this encounter [facility] 10-20-2022 Note CONSULTATION CONSULTATION DATE: 10/20/2022 [...] our patients to inform us about any [id number]-xzg-wmzgidr medications or herbal remedies/nutritional supplements/alternative remedies. 2. [...] options with their primary care provider. [facility] 10-11-2022 Note PROCEDURE: XR ANKLE RT [...] by: CHRISTINA ROBLERO Date: 2022-10-11 11:33 [facility] 10-11-2022 Note PROCEDURE: XR ANKLE RT [...] by: CHRISTINA ROBLERO Date: 2022-10-11 11:33 [facility] 01-06-2015 Evaluation note Diagnosis Onset Date Anxiety January 06, 2015 acute Anxiety January 06, 2015 acute Palpitations acute Screening for lipid disorders acute Screening for metabolic disorder acute Screening, deficiency anemia , iron acute Wellness examination acute [facility] Work Phone: Evaluation note* Diagnosis Encounter for cosmetic surgery- Primary Other plastic surgery for unacceptable cosmetic appearance [facility]* Diagnosis Right leg pain- Primary Pain in limb Numbness and tingling of right lower extremity Piriformis syndrome, right [facility] Diagnosis Onset Date Resolution Status Chest tightness acute Dizziness acute Family history of heart dise ase in male family member before age 55 acute Palpitations acute [facility] Work Phone: Evaluation note* Diagnosis Onset Date Resolution Status Chest tightness acute Dizziness acute Family history of heart dise ase in male family member before age 55 acute Palpitations acute Abdominal pain acute Bloating acute [facility] Work Phone: Summary Purpose Family History No Family History Records Found Relationship Condition Age at Onset Recorded Date/T valent[place] father Unknown Heart disease Unknown Advance Directives No Advanced Directives Records Found Advance Directive Response Recorded Date/ Time Advance [...] section and content) DATE CREATED AUTHOR 09/08/2020 [facility] DATE CREATED AUTHOR AUTHOR'S ORGANIZ ATION 10/27/2022 [facility] DATE CREATED AUTHOR AUTHOR'S ORGANIZ ATION 06/23/2023 [facility] DATE CREATED AUTHOR AUTHOR'S ORGANIZ ATION 06/25/2023 [facility] DATE CREATED AUTHOR AUTHOR'S ORGANIZ ATION 03/05/2024 [facility] DATE CREATED AUTHOR AUTHOR'S ORGANIZ ATION 03/12/2024 [facility] EPIC Source Comments (unrecognize d section and content) In the event this informatio n is protected by the Federal Confidentiality of Alcohol and Drug Abuse Patient Records regulations: The Federal rules restrict any use of the information to criminally investigate or prosecute any alcohol or drug abuse patient.[facility] the event this information is protected by the Federal Confidentiality of Alcohol and Drug Abuse Patient Records regulations: The Federal rules restrict any use of the information to criminally investigate or prosecute any alcohol or drug abuse patient.[facility] Reason for Visit (unrecogniz ed section [...] Member Role Status Dates Genevieve Feng APRN CLIENT CONSULTANT-Juice Primary Care Provider Active Team Status: Inactive [...] Member Role Status Dates Genevieve Feng APRN CLIENT CONSULTANT-C Primary Care Provider, Attending Provider Active Start: [...] BE BASED ON THE PRIMARY CLINICAL RECORDS. [facility] [employer] provides no warranty or guarantee of the accuracy or completeness of information in this document.
[2024-03-13 16:24] LABS: Basophils Percent Auto 0.6 % (0.2-2.0); Eosinophils Absolute Auto 0.2 10^3/uL (0.0-0.7); Eosinophils Percent Auto 2.4 % (0.9-7.0); Hematocrit 36.7 % (36.0-48.0); Hemoglobin 12.3 g/dL (12.0-16.0); Lymphocytes Absolute Auto 1.7 10^3/uL (1.2-3.8); Mean Corpuscular HGB Conc 33.5 g/dL (29.9-35.2); Mean Corpuscular Hemoglobin 31.1 pg (26.7-34.0); Mean Corpuscular Volume 92.7 fL (81.0-99.0); Mean Platelet Volume 9.7 fL (9.5-13.5); Monocytes Absolute Auto 0.5 10^3/uL (0.3-0.8); Monocytes Percent Auto 7.7 % (1.7-12.0); Neutrophils Absolute Auto 3.9 10^3/uL (1.4-6.5); Neutrophils Percent Auto 62.3 % (43.0-75.0); Platelet Count 246 10^3/uL (150-450); Red Blood Count 3.96 10^6/uL (4.20-5.40); White Blood Count 6.3 10^3/uL (4.0-11.0)
[2024-03-13 16:26] LABS: Anion Gap 8.9; BUN Creatinine Ratio 25.8; Calcium 8.8 mg/dL (8.5-10.1); Carbon Dioxide 32.4 mmol/L (21.0-32.0); Chloride 99 mmol/L (98-107); Estimated GFR (African America >60 (>=60); Estimated GFR (Non-African Ame >60 (>=60); Glucose 97 mg/dL (74-106); Potassium 4.3 mmol/L (3.5-5.1); Sodium 136 mmol/L (136-145)
== END 2024-03-13 16:08 | disposition home or self-care (01) ==
LOC: LAB 16:07
PROVIDERS: PCP Nurse Practitioner Family; Visit Provider Internal Medicine Cardiovascular Disease
DX: Z01.812 Encounter for preprocedural laboratory examination (principal); Z01.818 Encounter for other preprocedural examination
CPT/HCPCS: 36415; 80048; 85025

== ENCOUNTER 2024-04-17 14:36 | Outpatient (OUT) | payer OTHER, SELFPAY ==
--- OUTSIDE RECORDS SUMMARY | 2024-04-17 14:52 | XMS_ITS | CCD ---
Author Organization [facility] Care Team Providers Care Stove Polisher Name Role Phone DR AGUSTIN MORTENSEN Primary Care Unavailable LAKSHMIPATHY ., NARENDRANATH Admitting Mariella vailable LAKSHMIPATHY ., SCARENDRANATH Consulting Mariella vailable LAKSHMISHMIPATHLandon ., JOSE GUADALUPE Attending Mariella brookilaLORRI Andrew Admitting Unavailable LORRI BERRY Attending Unavailable DR CHRISTINA ROBLERO Consulting Unavailable DR AGUSTIN MORTENSEN Primary Care Unavailable LORRI BERRY Consulting Unavailable Unavailable Primary Care Provider UnavailMD Agustin Ramirez Primary Care Provider [phone] MD Jose Guadalupe Costa Attending Provider Unavailable DAGMAR Feng Attending Provider [phone] Genevieve Feng Attending Unavailable Genevieve Feng Admitting Unavailable NO FAMILY, PHYSICIAN Primary Care Unavailable BETHANY EM Attending Unavailable LINDA MUÑOZ Referring Unavailable LINDA MUÑOZ Attending Unavailable LINDA MUÑOZ Referring Unavailable BLANKA AGUIRRE Attending Unavailable BLANKA AGUIRRE Referring Unavailable ALGHOTHANI, MOHAMAD Admitting Unavailable ALGHOTHANI, MOHAMAD Attending Unavailable ALGHOTHANI, MOHAMAD Referring Unavailable ALGHOTHANI, MOHAMAD Attending Unavailable ALGHOTHANI, MOHAMAD Attending Unavailable Unavailable Primary Care Provider UnavailKYLE Mendoza Referring Unavailable KYLE ZHU Attending Unavailable MARSHA LANDA Attending Unavailable Medications Current Medications Medication Drug Class(es) Dates Sig (Normalized) Sig (Original) aspirin 81 mg delayed release oral tablet (6 sources) Platelet Aggregation Inhibitor, Nonsteroidal Anti-inflammatory Drug Start: 03-21-2024 aspirin, enteric coated (ASPIRIN, ENTERIC COATED) 81 mg EC tablet Take 81 mg by mouth. 03/21/2024 Active busPIRone hydrochloride 5 mg oral tablet (16 sources) Start: 09-14-2023 End: 10-12-2023 busPIRone (BUSPAR) 5 mg tablet Take 5 mg by mouth. 10/11/2023 Active enteric contrast (will be provided with radiology test) (2 sources) Start: 04-10-2024 End: 04-11-2024 enteric contrast (will be provided with radiology test) For CT ENTEROGRAPHY W IVCON order Administer, As Directed One Time Only, via Oral, Rectal, both Oral and Rectal, Enteric Tube, Stoma or Indwelling Catheter, Enteric Contrast as designated per enteric contrast guidelines. 1 Each 04/10/2024 04/11/2024 Active estradiol 0.5 mg oral tablet (7 sources) Estrogen Start: 09-14-2023 take 0.5 mg by mouth once daily Estradiol Active 0.5 MG PO Daily September 14, 2023 1:00am iv contrast (will be provided with radiology test) (2 sources) Start: 04-10-2024 End: 04-11-2024 iv contrast (will be provided with radiology test) CT Enterography W Inject, intravenously, once for 1 dose.No IV access, insert saline lock prior to the beginning of sedation, infusion, injection of imaging exam. Discontinue saline lock post exam. If Pt. has a central line or IVAD, may access for administration according to line specific nursing protocol. Once exam is complete flush line and de-access according to line specific nursing protocol in the CT contrast administration guidelines link. 1 Each 04/10/2024 04/11/2024 Active LORazepam 0.5 mg oral tablet (11 sources) Benzodiazepine Start: 01-30-2023 LORazepam (ATIVAN) 0.5 mg Take 0.5 mg by mouth. 01/30/2023 Active Comment on above: Take 0.5 mg by mouth . pantoprazole 40 mg delayed release oral tablet (2 sources) Proton Pump Inhibitor Start: 03-22-2024 End: 04-21-[address] (PROTONIX) 40 mg tablet Take 40 mg by mouth. 03/22/2024 04/21/2024 Active phenazopyridine hydrochloride 200 mg oral tablet (3 sources) Start: 04-02-2024 take 1 tablet by mouth three times daily Phenazopyridine (Pyridium) 200 mg tablet Active 200 MG PO Three times daily April 02, 2024 12:00am predniSONE 50 mg oral tablet (1 source) Start: 03-16-2023 End: 03-21-2023 predniSONE (DELTASONE) 50 mg Take 50 mg by mouth. 0 03/16/2023 03/21/2023 Active Comment on above: Take 50 mg by mouth. sulfamethoxazole 800 mg / trimethoprim 160 mg oral tablet (3 sources) Dihydrofolate Reductase Inhibitor Antibacterial, Sulfonamide Antimicrobial Start: 04-02-2024 take 1 tablet by mouth twice daily Sulfamethoxazole-Tr imethoprim (Bactrim Ds) 800-160 mg tablet Active 1 TAB PO Twice daily 14 April 02, 2024 12:00am Completed/Discontinued Medications Medication Drug Class(es) Dates Sig (Normalized) Sig (Original) baclofen 10 mg oral tablet (11 sources) gamma-Aminobutyri c Acid-ergic Agonist Start: 09-14-2023 End: 10-12-2023 take 10 mg by mouth once daily Baclofen Discontinued 10 MG PO Daily September 14, 2023 1:00am October 12, 2023 8:30am Start: 03-07-2023 take 0.5 tablet by m outh three times daily baclofen 10 mg tablet TAKE 1/2 TABLET BY MOUTH 3 TIMES A DAY 03/07/2023 Active Comment on above: TAKE 1/2 TABLET BY M OUTH 3 TIMES A DAY Problems Problem Classification Problem Date Documented Da te Episodic/Chronic Abdominal pain (13 sources) Abdominal pain; Translations: [Unspecified abdominal pain] Onset: 04-10-2024 02-26-2024 Episodic Anxiety disorders (12 sources) Anxiety; Translations: [Anxiety disorder, unspecified] Onset: 01-06-2015 09-14-2023 Chronic Cardiac and circulatory congenital anomalies (6 sources) Myocardial bridge of coronary artery; 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] 03-21-2024 Chronic Cardiac dysrhythmias (14 sources) Palpitations; Translations: [Palpitations] 10-12-2023 Episodic Conditions associated with dizziness or vertigo (12 sources) Dizziness; Translations: [Dizziness and giddiness] 02-19-2024 Episodic Nonspecific chest pain (20 sources) Tight chest; Translations: [Other chest pain] Onset: 03-04-2024 02-19-2024 Episodic Other connective tissue disease (3 sources) Pain in right leg; Translations: [PAIN IN RIGHT LEG] Onset: 10-20-2022 Episodic Other connective tissue disease (1 source) Pain in right lower limb; Translations: [Pain in right leg] 06-21-2023 Episodic Other gastrointestinal disorders (5 sources) Abdominal bloating; Translations: [Abdominal distension (gaseous)] 02-26-2024 Episodic Other gastrointestinal disorders (5 sources) Abdominal distension (gaseous); Translations: [Flatulence, eructation, and [...] conditions (not mental disorders or infectious disease) (9 sources) Encounter for screening for lipoid disorders; Translations: [Screening for lipoid disorders] Onset: 03-04-2024 10-12-2023 Episodic Residual codes; unclassified (20 sources) Patient encounter status; Translations: [Encounter for cosmetic surgery] 03-20-2023 Episodic Residual codes; unclassified (6 sources) Family history of cardiovascular disease in first degree male relative less than 55 years of age; Translations: [Family history of ischemic heart disease and other diseases of the circulatory system] 02-19-2024 Episodic Residual codes; unclassified (6 sources) Family history of ischemic heart disease and other diseases of the circulatory system; Translations: [Family history of other cardiovascular diseases] 02-19-2024 Episodic Spondylosis; intervertebral disc disorders; other back problems (1 source) Radiculopathy, lumbar region; Translations: [RADICULOPATHY LUMBAR REGION] Onset: 10-26-2022 Episodic Urinary tract infections (7 sources) Urinary tract infectious disease; Translations: [Urinary tract infection, site not specified] Onset: 04-02-2024 04-02-2024 Episodic Results Test Name Value Interpretation Reference Range Facility 25(OH)D3 SerPl-mCncon 2023 25-hydroxyvitamin D3 [Mass/Vol] 39.3 ng/mL Normal 31.0-80.0 [facility] Comment on above: Order Comment: Speci men Type: BLOOD SPECIMEN Ordering Facility: [facility] Address: [address] [place] [address] Result Comment: Clas sification of 25 [place] Vitamin D status: Deficiency/Insufficiency: < or = 30 ng/ml. Sufficiency/Optimal Levels: 31-80 ng/mL Toxicity: > 100 ng/mL. Test performed by chemiluminescent immunoassay. Performed By: #### 1 989-3 #### [facility] CLIA [id number] [address] [place], [place] [address] [place] CBC panel Auto (Bld)on 04-10 Erythrocyte distribution width (RBC) [Ratio] 12.4 % 11.5 - 15.0 % [facility] Hematocrit (Bld) [Volume fraction] 37.7 % 36.0 - 46.0 % [facility] Hemoglobin (Bld) [Mass/Vol] 12.5 g/dL 11.5 - 15.5 g/dL [facility] Interpretation and review of laboratory results Normal [facility] MCH (RBC) [Entitic mass] 30.8 pg 26.0 - 34.[address] [facility] MCHC (RBC) [Mass/Vol] 33.2 g/dL 30.5 - 36.0 g/dL [facility] MCV (RBC) [Entitic vol] 92.9 fL 80.0 - 100.[address] [facility] Nucleated RBC (Bld) [#/Vol] NINF [facility] Platelet mean volume (Bld) [Entitic vol] 10.6 fL 9.0 - 12.[address] [facility] Platelets (Bld) [#/Vol] 274 10*3/uL [facility] RBC (Bld) [#/Vol] 4.06 10*6/uL 3.90 - 5.2 0 m/uL [facility] WBC (Bld) [#/Vol] 5.79 10*3/uL [facility] Erythrocyte distribution width (RBC) [Ratio] 12.4 % Normal 11.5-15.0 [facility] Comment on above: Order Comment: Speci men Type: BLOOD SPECIMEN Ordering Facility: [facility] Address: [address] [place] [address] Performed By: #### 5 8410-2 #### [facility] CLIA [id number] [address] [place] [address] [place] Hematocrit (Bld) [Volume fraction] 37.7 % Normal 36.0-46.0 [facility] Comment on above: Order Comment: Speci men Type: BLOOD SPECIMEN Ordering Facility: [facility] Address: [address] [place] [address] Performed By: #### 5 8410-2 #### [facility] CLIA [id number] [address] [place] [address] [place] Hemoglobin (Bld) [Mass/Vol] 12.5 g/dL Normal 11.5-15.5 [facility] Comment on above: Order Comment: Speci men Type: BLOOD SPECIMEN Ordering Facility: [facility] Address: [address] [place] [address] Performed By: #### 5 8410-2 #### [facility] CLIA [id number] [address] [place] [address] [place] MCH (RBC) [Entitic mass] 30.8 pg Normal 26.0-34.0 [facility] Comment on above: Order Comment: Speci men Type: BLOOD SPECIMEN Ordering Facility: [facility] Address: [address] [place] [address] Performed By: #### 5 8410-2 #### [facility] CLIA [id number] [address] [place] [address] [place] MCHC (RBC) [Mass/Vol] 33.2 g/dL Normal 30.5-36.0 [facility] Comment on above: Order Comment: Speci men Type: BLOOD SPECIMEN Ordering Facility: [facility] Address: [address] [place] [address] Performed By: #### 5 8410-2 #### [facility] CLIA [id number] [address] [place] [address] [place] MCV (RBC) [Entitic vol] 92.9 fL Normal 80.0-100.0 [facility] Comment on above: Order Comment: Speci men Type: BLOOD SPECIMEN Ordering Facility: [facility] Address: [address] [place] [address] Performed By: #### 5 8410-2 #### [facility] CLIA [id number] [address] [place] [address] [place] Nucleated RBC (Bld) [#/Vol] 10*3/uL Normal <0.01 [facility] Comment on above: Order Comment: Speci men Type: BLOOD SPECIMEN Ordering Facility: [facility] Address: [address] [place] [address] Performed By: #### 5 8410-2 #### [facility] CLIA [id number] [address] [place] [address] [place] Platelet mean volume (Bld) [Entitic vol] 10.6 fL Normal 9.0-12.7 [facility] Comment on above: Order Comment: Speci men Type: BLOOD SPECIMEN Ordering Facility: [facility] Address: [address] [place] [address] Performed By: #### 5 8410-2 #### [facility] CLIA [id number] [address] [place] [address] [place] Platelets (Bld) [#/Vol] 274 10*3/uL Normal 150-400 [facility] Comment on above: Order Comment: Speci men Type: BLOOD SPECIMEN Ordering Facility: [facility] Address: [address] [place] [address] Performed By: #### 5 8410-2 #### [facility] CLIA [id number] [address] [place] [address] [place] RBC (Bld) [#/Vol] 4.06 10*6/uL Normal 3.90-5.20 [facility] Comment on above: Order Comment: Speci men Type: BLOOD SPECIMEN Ordering Facility: [facility] Address: [address] [place] [address] Performed By: #### 5 8410-2 #### [facility] CLIA [id number] [address] [place] [address] [place] WBC (Bld) [#/Vol] 5.79 10*3/uL Normal 3.70-11.00 [facility] Comment on above: Order Comment: Speci men Type: BLOOD SPECIMEN Ordering Facility: [facility] Address: [address] [place] [address] Performed By: #### 5 8410-2 #### [facility] CLIA [id number] [address] [place] [address] [place] CRP SerPl-mCncon 04-10-2024 CRP [Mass/Vol] mg/L Normal <0.9 [facility] Comment on above: Order Comment: Speci men Type: BLOOD SPECIMEN Ordering Facility: [facility] Address: [address] [place] [address] Performed By: #### 2 4323-8, 1987-11 #### [facility] CLIA [id number] [address] [place] [address] [place] Comprehensive metabolic 2000 panelon 04-10-2024 Albumin [Mass/Vol] 4.5 g/dL Normal 3.9-4.9 [facility] Comment on above: Order Comment: Speci men Type: BLOOD SPECIMEN Ordering Facility: [facility] Address: [address] [place] [address] Performed By: #### 2 4323-8, 1987-11 #### [facility] CLIA [id number] [address] [place] [address] [place] ALP [Catalytic activity/Vol] 80 U/L Normal 34-123 [facility] Comment on above: Order Comment: Speci men Type: BLOOD SPECIMEN Ordering Facility: [facility] Address: [address] [place] [id number] Performed By: #### 2 4328, 1987-11 #### [facility] CLIA [id number] [address] [place] [address] [place] ALT [Catalytic activity/Vol] 14 U/L Normal 7-38 [facility] Comment on above: Order Comment: Speci men Type: BLOOD SPECIMEN Ordering Facility: [facility] Address: [address] [place] [address] Performed By: #### 2 4328, 1987-11 #### [facility] CLIA [id number] [address] [place] [address] [place] Anion gap [Moles/Vol] 12 mmol/L Normal 8-15 [facility] Comment on above: Order Comment: Speci men Type: BLOOD SPECIMEN Ordering Facility: [facility] Address: [address] [place] [address] Performed By: #### 2 4328, 1987-11 #### [facility] CLIA [id number] [address] [place] [address] [place] AST [Catalytic activity/Vol] 26 U/L Normal 13-35 [facility] Comment on above: Order Comment: Speci men Type: BLOOD SPECIMEN Ordering Facility: [facility] Address: [address] [id number] Performed By: #### 2 4323-8, 1987-11 #### [facility] CLIA [id number] [address] [place] [address] [place] Bilirubin [Mass/Vol] 0.2 mg/dL Normal 0.2-1.3 [facility] Comment on above: Order Comment: Speci men Type: BLOOD SPECIMEN Ordering Facility: [facility] Address: [address] [place], [place] [id number] Performed By: #### 2 4323-02, 1987-11 #### [facility] CLIA [id number] [address] [place] [address] [place] Calcium [Mass/Vol] 9.6 mg/dL Normal 8.5-10.2 [facility] Comment on above: Order Comment: Speci men Type: BLOOD SPECIMEN Ordering Facility: [facility] Address: [address] [place], [place] [id number] Performed By: #### 2 4323-02, 1987-11 #### [facility] CLIA [id number] [address] [place] [address] [place] Chloride [Moles/Vol] 102 mmol/L Normal 98-107 [facility] Comment on above: Order Comment: Speci men Type: BLOOD SPECIMEN Ordering Facility: [facility] Address: [address] [place], [place] [id number] Performed By: #### 2 4323-02, 1987-11 #### [facility] CLIA [id number] [address] [place] [address] [place] CO2 [Moles/Vol] 24 mmol/L Normal 22-30 [facility] Comment on above: Order Comment: Speci men Type: BLOOD SPECIMEN Ordering Facility: [facility] Address: [address] [place], [place] [id number] Performed By: #### 2 4323-02, 1987-11 #### [facility] CLIA [id number] [address] [place] [id number] [place] Creatinine [Mass/Vol] 0.78 mg/dL Normal 0.58-0.96 [facility] Comment on above: Order Comment: Speci men Type: BLOOD SPECIMEN Ordering Facility: [facility] Address: [address] [place], [place] [id number] Performed By: #### 2 4323-02, 1987-11 #### [facility] CLIA [id number] [address] [place] [address] [place] Creatinine and Glomerular filtration rate.predicted panel (S/P/Bld) 91 mL/min/1.73m??? Normal >=60 [facility] Comment on above: Order Comment: Roman arriola Type: BLOOD SPECIMEN Ordering Facility: [facility] Address: [address] [place] [address] Result Comment: Emelyn mated Glomerular Filtration Rate (eGFR) is calculated using the 2020 CKD-EPI creatinine equation. This equation utilizes serum creatinine, sex, and age as parameters. The creatinine assay has traceable calibration to isotope dilution-mass spectrometry. Refer to KDIGO guidelines for clinical interpretation. In patients with unstable renal function, e.g. those with acute kidney injury, the eGFR may not accurately reflect actual GFR. Performed By: #### 2 43238, 1987-11 #### [facility] CLIA [id number] [address] [place] [address] [place] Glucose [Mass/Vol] 94 mg/dL Normal 74-99 [facility] Comment on above: Order Comment: Roman arriola Type: BLOOD SPECIMEN Ordering Facility: [facility] Address: [address] [place] [address] Result Comment: The [place] [employer] (ADA) provides guidance for cutoff values for fasting glucose and random glucose. The ADA defines fasting as no caloric intake for at least 8 hours. Fasting plasma glucose results between 100 to 125 mg/dL indicate increased risk for diabetes (prediabetes). Fasting plasma glucose results greater than or equal to 126 mg/dL meet the criteria for diagnosis of diabetes. In the absence of unequivocal hyperglycemia, results should be confirmed by repeat testing. In a patient with classic symptoms of hyperglycemia or hyperglycemic crisis, random plasma glucose results greater than or equal to 200 mg/dL meet the criteria for diagnosis of diabetes. Reference: Standards of Medical Care in Diabetes 2016, [place] [employer]. Diabetes Care. 2016.39(Suppl 1). Performed By: #### 2 4323-8, 1987-11 #### [facility] CLIA [id number] [address] [place] [address] [place] Potassium [Moles/Vol] 4.5 mmol/L Normal 3.7-5.1 [facility] Comment on above: Order Comment: Speci men Type: BLOOD SPECIMEN Ordering Facility: [facility] Address: [facility] [place] [address] Performed By: #### 2 43209-14, 1987-11 #### [facility] CLIA [id number] [address] [place] [address] [place] Protein [Mass/Vol] 7.7 g/dL Normal 6.3-8.0 [facility] Comment on above: Order Comment: Speci men Type: BLOOD SPECIMEN Ordering Facility: [facility] Address: [address] [place] [address] Performed By: #### 2 4323-02, 1987-11 #### [facility] CLIA [id number] [address] [place] [address] [place] Sodium [Moles/Vol] 138 mmol/L Normal 136-144 [facility] Comment on above: Order Comment: Speci men Type: BLOOD SPECIMEN Ordering Facility: [facility] Address: [address] [place] [address] Performed By: #### 2 4323-02, 1987-11 #### [facility] CLIA [id number] [address] [place] [address] [place] Urea nitrogen [Mass/Vol] 11 mg/dL Normal 7-21 [facility] Comment on above: Order Comment: Speci men Type: BLOOD SPECIMEN Ordering Facility: [facility] Address: [address] [place] [address] Performed By: #### 2 4328, 1987-11 #### [facility] CLIA [id number] [address] [place] [address] [place] ABDOMEN PELVIS WO IV CONT RASTon 04-02-2024 CT ABDOMEN PELVIS WO IV CONTRAST CT of the abdomen and Pelvis CTDI is 9.4 mGy and DLP is 436.75 mGy-cm. Technique: Spiral CT of the abdomen and pelvis was performed following the administration of oral contrast. No intravenous contrast was administered. Reformatted coronal and sagittal images were also obtained. Comparison: History: Generalized abdominal pain Findings: Lung bases: Unremarkable. No mass. No consolidation. ABDOMEN: Liver: Unremarkable. No mass. Gallbladder and bile ducts: Unremarkable. No calcified stones. No ductal dilation. Pancreas: Unremarkable. No mass. No ductal dilation. Spleen: Unremarkable. No splenomegaly. Adrenals: Unremarkable. No mass. Kidneys and ureters: No hydronephrosis or obstructing stone. Stomach and bowel: Evaluation of the stomach is limited by under distention. No small bowel obstruction. In the right side of the pelvis there are loops of small bowel that may be thickened versus incomplete distention (series 2, images 125, 128 and 136). Intraperitoneal space: Unremarkable. No free air. No significant fluid collection. Bones/joints: No acute fracture. No dislocation. Soft tissues: A small umbilical hernia is seen that contains fat.. Vasculature: Unremarkable. No abdominal aortic aneurysm. Lymph nodes: No bulky adenopathy is seen. PELVIS: Appendix: No pericecal stranding or fluid collection seen. Bladder: Unremarkable. No mass. Reproductive: Anteriorly in the left side of the pelvis a hypodense structure is seen that measures 4.2 x 3.2 x 3.9 cm. It appears to be mostly cystic with a soft tissue rim. This is thought to be in the ovary. IMPRESSION: Impression: 1. No evidence for appendicitis or diverticulitis. In the distal small bowel questionable bowel wall thickening versus incomplete distention is seen. Can consider small bowel follow-through and colonoscopy is the gold standard for evaluating the colon starting at age 50. 2. Recommend ultrasound of a cystic structure seen in the left adnexal region of the pelvis. ELECTRONICALLY SIGNED BY: Ese Milligan, DO Normal Not Available Urine Cultureon 04-02-2024 Bacteria identified Cx Nom (U) ORGANISM: Escherichia coli (O:ESCCOL) [place] Count >100,000 Aerobic LEXIS Charge (NMIC56) ---- SUSCEPTIBILITY --- ORGANISM: O:ESCCOL ANTIBIOTIC INTERPRETATION LEXIS Amikacin S <16 Amoxacillin/K Clavulanate S <8 Ampicillin S <8 Ampicillin/Sulbactam S <4 Aztreonam S <4 Cefazolin S <2 Cefepime S <2 Ceftazidime S <1 Ceftazidime/Avibactam S <4 Ceftolozane/Tazobacta m S <2 Ceftriaxone S <1 Cefuroxime S <4 Ciprofloxacin S <0.25 Ertapenem S <0.5 Gentamicin S <2 Levofloxacin S <0.5 Meropenem S <1 Meropenem/Vaborbactam S <2 Nitrofurantoin S <32 Piperacillin/Tazobact am S <8 Tetracycline S <4 Tigecycline S <2 Tobramycin S <2 Trimethoprim/Sulfamet hoxazole S <0.5 S = SUSCEPTIBLE I = INTERMEDIATE R = RESISTANT BLANK = DATA NOT AVAILABLE, OR DRUG NOT ADVISABLE OR TESTED R* = RESISTANCE DUE TO EXTENDED SPECTRUM BETA-LACTAMASES ESBL = EXTENDED SPECTRUM BETA-LACTAMASE TFG = THYMIDINE-DEPENDENT STRAIN JORGE A = BETA-LACTAMASE POSITIVE IB = INDUCIBLE BETA-LACTAMASE. APPEARS IN PLACE OF 'S' WITH SPECIES KNOWN TO POSSESS INDUCIBLE BETA-LACTAMASES. POTENTIALLY THEY MAY BECOME RESISTANT TO ALL B-LACTAM DRUGS. PERFORMED BY: [place] [address] PATHOLOGIST POLICE OR PATROL PARK OFFICER ANUSHA ROMO M.D. Normal [facility] Comment on above: Performed By: #### C UU #### [address] 03-18-2024 - Attestation signed by Seda Loza MD at 03/18/2024 11:05 AM H and P reviewed. No significant changes. Patient presenting with chest pain, abnormal stress test. Plan to proceed with cath. Procedure was explained to patient at length and in detail. Risks, benefits, and alternatives were discussed. Patient is informed that risks of this invasive procedure include, but are not limited to, bleeding, hematoma, kidney injury, CVA, arrythmia requiring defibrillation, need for emergent open heart surgery, and . Patient understands these risks and wishes to proceed. Seda Loza MD History Of Present Illness Socorro Gallagher is a 53 y.o. female who presented to her outpatient scheduled cardiac catheterization, patient reported occasional chest pain, not related to exertion, has been ongoing for few weeks, she has strong family history of coronary artery disease , she underwent exercise treadmill test which came back positive for ischemia for which she was evaluated in cardiology office and recommendation was to proceed with coronary angiography. Past Medical History She has no past medical history on file. Surgical History She has a past surgical history that includes Hysterectomy; section, classic; and Foot surgery. Social History She reports that she has never smoked. She has never used smokeless tobacco. No history on file for alcohol use and drug use. Allergies Patient has no known allergies. Medications Medications Prior to Admission Medication Sig Dispense Refill Last Dose aspirin 81 mg EC tablet Take 81 mg by mouth in the morning. 03/18/2024 busPIRone (Buspar) 5 mg tablet Take 5 mg by mouth two times daily. 03/18/2024 estradiol (Estrace) 0.5 mg tablet Take 0.5 mg by mouth in the morning. Pt is taking half a pill 03/17/2024 LORazepam (Ativan) 0.5 mg tablet Take 0.5 mg by mouth every 6 (six) hours if needed for anxiety. 03/17/2024 Review of Systems Constitutional: Negative for activity change and appetite change. Respiratory: Negative for chest tightness, shortness of breath and wheezing. Cardiovascular: Positive for chest pain. Negative for palpitations and leg swelling. Gastrointestinal: Negative for abdominal pain, nausea and vomiting. Neurological: Negative for dizziness and light-headedness. Physical Exam Constitutional: General: She is not in acute distress. Appearance: Normal appearance. She is not ill-appearing. HENT: Head: Normocephalic and atraumatic. Cardiovascular: Rate and Rhythm: Normal rate and regular rhythm. Heart sounds: Normal heart sounds. No murmur heard. Pulmonary: Breath sounds: Normal breath sounds. No wheezing or rales. Abdominal: Palpations: Abdomen is soft. Tenderness: There is no abdominal tenderness. Musculoskeletal: Right lower leg: No edema. Left lower leg: No edema. Skin: General: Skin is warm and dry. Findings: No erythema or rash. Neurological: Mental Status: She is alert and oriented to person, place, and time. Mental status is at baseline. Last Recorded Vitals Blood pressure (!) 135/98, pulse 90, resp. rate 16, SpO2 96 %. Relevant Results Stress test 03/04/2024 This is an abnormal exercise stress test given ST-depression in the inferolateral leads at peak exercise and development of biphasic T-waves during recovery. Patient also experienced reproducible chest pain. Parkinson Treadmill Score is 1.8, which is a moderate risk. Clinical correlation required. Assessment/Plan Principal Problem: Abnormal stress test Socorro Gallagher is a 53 y.o. female who presented to her outpatient scheduled cardiac catheterization, patient reported occasional chest pain, not related to exertion, has been ongoing for few weeks, she has strong family history of coronary artery disease , she underwent exercise treadmill test which came back positive for ischemia for which she was evaluated in cardiology office and recommendation was to proceed with coronary angiography. We will proceed with coronary angiography. Risks and benefits of procedure discussed with patient, all questions were answered, patient is agreeable and wishes to proceed. Amairani Tinoco MD PGY-4 commercial intern [facility] NURSNOTEon 03-18-2024 NURSNOTE RN educated pt on d/ c instructions. RN encouraged pt to voice any questions or concerns. Pt verbalizes no questions or concerns at this time. Pt was wheeled off of unit with all of belongings. [facility] Basophils Auto (Bld) [#/Vol] on 03-13-2024 Basophils (Bld) [#/Vol] 0.0 10 3/uL 0.0-0.1 [facility] Basophils/100 WBC Auto (Bld) on 03-13-2024 Basophils/100 WBC (Bld) 0.6 % 0.2-2.0 [facility] Eosinophils/100 WBC Auto (Bl d)on 03-13-2024 Eosinophils/100 WBC (Bld) 2.4 % 0.9-7.0 [facility] Erythrocyte distribution wid th Auto (RBC) [Ratio]on 03-13-2024 Erythrocyte distribution width (RBC) [Ratio] 12.0 % 11.0-15.0 [facility] Estimated glomerular filtrat ion rate (GFR) non- Americanon 03-13-2024 GFR/1.73 sq M.predicted among non-blacks MDRD (S/P/Bld) [Vol rate/Area] mL/min/{1.73_m2} >=60 [facility] Hematocrit Auto (Bld) [Volum e fraction]on 03-13-2024 Hematocrit (Bld) [Volume fraction] 36.7 % 36.0-48.0 [facility] Hemoglobin [Mass/volume] in Bloodon 03-13-2024 Hemoglobin (Bld) [Mass/Vol] 12.3 g/dL 12.0-16.0 [facility] Laboratory - Chemistry and C hemistry - challengeon 03-13-2024 Calcium [Mass/Vol] 8.8 mg/dL 8.5-10.1 [facility] Chloride [Moles/Vol] 99 mmol/L 98-107 [facility] CO2 [Moles/Vol] 32.4 mmol/L High 21.0-32.0 [facility] Creatinine [Mass/Vol] 0.66 mg/dL 0.55-1.02 [facility] GFR/1.73 sq M.predicted MDRD (S/P/Bld) [Vol rate/Area] mL/min/{1.73_m2} >=60 [facility] Glucose [Mass/Vol] 97 mg/dL 74-106 [facility] Potassium [Moles/Vol] 4.3 mmol/L 3.5-5.1 [facility] Sodium [Moles/Vol] 136 mmol/L 136-145 [facility] Urea nitrogen [Mass/Vol] 17.0 mg/dL 7.0-18.0 [facility] Urea nitrogen/Creatinine [Mass ratio] 25.8 mg/mg [facility] Laboratory - Hematology and Cell countson 03-13-2024 Immature granulocytes/100 WBC (Bld) 0.0 % 0.0-0.5 [facility] Leukocytes [#/volume] correc alejandra for nucleated erythrocytes in Blood by Automated counon 03-13-2024 WBC corrected for nucl RBC Auto (Bld) [#/Vol] 6.3 10 3/uL 4.0-11.0 [facility] Lymphocytes Auto (Bld) [#/Vo l]on 03-13-2024 Lymphocytes (Bld) [#/Vol] 1.7 10 3/uL 1.2-3.8 [facility] Lymphocytes/100 WBC Auto (Bl d)on 03-13-2024 Lymphocytes/100 WBC (Bld) 27.0 % 20.5-60.0 [facility] MCH Auto (RBC) [Entitic mass ]on 03-13-2024 MCH (RBC) [Entitic mass] 31.1 pg 26.7-34.0 [facility] MCHC Auto (RBC) [Mass/Vol]on 03-13-2024 MCHC (RBC) [Mass/Vol] 33.5 g/dL 29.9-35.2 [facility] MCV Auto (RBC) [Entitic vol] on 03-13-2024 MCV (RBC) [Entitic vol] 92.7 fL 81.0-99.0 [facility] Monocytes Auto (Bld) [#/Vol] on 03-13-2024 Monocytes (Bld) [#/Vol] 0.5 10 3/uL 0.3-0.8 [facility] Monocytes/100 WBC Auto (Bld) on 03-13-2024 Monocytes/100 WBC (Bld) 7.7 % 1.7-12.0 [facility] Neutrophils Auto (Bld) [#/Vo l]on 03-13-2024 Neutrophils (Bld) [#/Vol] 3.9 10 3/uL 1.4-6.5 [facility] Neutrophils/100 WBC Auto (Bl d)on 03-13-2024 Neutrophils/100 WBC (Bld) 62.3 % 43.0-75.0 [facility] No Panel Informationon 03-13 Eosinophils # (Auto) 0.2 10 3/uL 0.0-0.7 [facility] Immature Granulocyte # (Auto) 0.00 10 3/uL 0.00-0.03 [facility] Platelet mean volume Auto (B ld) [Entitic vol]on 03-13-2024 Platelet mean volume (Bld) [Entitic vol] 9.7 fL 9.5-13.5 [facility] Platelets Auto (Bld) [#/Vol] on 03-13-2024 Platelets (Bld) [#/Vol] 246 10 3/uL 150-450 [facility] RBC Auto (Bld) [#/Vol]on RBC (Bld) [#/Vol] 3.96 10 6/uL Low 4.20-5.40 [facility] Serum or plasma anion gap de terminationon 03-13-2024 Anion gap [Moles/Vol] 8.9 mmol/L [facility] DEXA BONE DENSITYon 03-12-20 DEXA BONE DENSITY FINDINGS: Dual Femur bone density obtained with a MyForce whole body system: Region BMD Young-Adult Age-Matched [...] AP Spine bone density obtained with a [employer] whole body system: Region BMD Young-Adult Age-Matched [...] BY: Rod Love MD Normal Not Available Office Visiton 03-04-2024 Follow-up visit [id number] Yuri Gallagher 1970 F Date Provider Department Center 03/04/2024 Annelise-SEDA LOZA Family History Problem Relation Age of Onset No Known Problems Mother Heart attack Father Coronary artery disease Father's Brother Stroke Paternal Grandfather Family Status - Relation Status Age at Mother Father Father's Brother Paternal Grandfather Level of Service:15568 OR OFFICE/OUTPATIENT NEW MODERATE MDM 45 MINUTES Normal [facility] Orders Onlyon 03-04-2024 Orders Only [id number] Yuri Gallagher 1970 F Date Provider Department Center 03/04/2024 TANISHA ANDINO Family History Problem Relation Age of Onset No Known Problems Mother Heart attack Father Coronary artery disease Father's Brother Stroke Paternal Grandfather Family Status - Relation Status Age at Mother Father Father's Brother Paternal Grandfather Normal [facility] CNOVon 06-21-2023 [facility] SOCORRO GALLAGHER ([id number]) 1970 F Date Time Provider Department 06/21/23 8:00 AM MARSHA LANDA [facility] During your visit today, we recorded the following information about you: Weight Height 64 kg 1.6 m Marsha Landa, MOLDING ENGINEER.ACLS NURSE 06/21/2023 9:30 AM Signed Spine Care Path [...] under the care of pain management in [facility] where she recently underwent a right gluteal nerve block without improvement in symptoms. She states that at postinjection follow-up she was offered a piriformis injection but is reluctant to proceed. She reports that she recently had an EMG completed. EMG results were not available at time of today's appointment. 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 Mortensen - PCP [...] christina (more content not included)... Normal [facility] RAD - Ultrasound Reporton RAD - Ultrasound Report [id number] .00CD:127 Normal [facility] Coding Summary.on 07-31-2020 Coding Summary. CODING DATE: 07/31/2020 FINAL [facility] STATUS: Home (Routine DC) PAYOR: [facility] DESCRIPTION 5373 Level 3 Urology and Related Services ADMIT DX: REASON FOR VISIT DX: R35.0 Frequency of micturition FINAL DX: PRINCIPAL: R35.0 Frequency of micturition SECONDARY: R39.15 Urgency of urination Z87.440 Personal history of urinary (tract) infections F41.1 Generalized anxiety disorder Z87.442 Personal history of urinary calculi PYMT [facility] APC STAT DESCRIPTION DOCTOR NAME DATE NOTE: The code number assigned matches the documented diagnosis and / or procedure in the patient's chart. However, the narrative phrase printed from the coding software may appear abbreviated, or result in slightly different terminology. Coded By: So Valle Date Saved: 07/31/2020 12:41 pm [facility] Consent for Procedure/Surger yon 07-30-2020 Consent for Procedure/Surgery [id number]# 1.00CD:127 [facility] Consent for Treatmenton 07-11 Consent for Treatment [id number] .00CD:127 [facility] Discharge Instructionson Discharge Instructions [id number]# 1.00CD:127 [facility] History and Physicalon 07-30 History and Physical [id number]# 1.00CD:127 [facility] IntraOperative Documentson 0 07-30-2020 IntraOperative Documents [id number]# 1.00CD:127 [facility] Main OR Intraoperative Recor amos 07-30-2020 Main OR Intraoperative Record IntraOp Document Type FTURO Summary Primary Physician: Facundo Fam Jr., MD Finalized Date/Time: 07/30/20 13:50:41 Pt. Name: YURI GALLAGHER /Sex: 1970 Female Med Rec #: [id number] Physician: Facundo Fam Jr., MD Financial #: [id number] Pt. Type: O Room/Bed: / Admit/Disch: 07/30/20 13:06:47 - Institution: Case Times FTURO Entry 1 Patient Times In Room 07/30/20 13:40:00 Out Room 07/30/20 13:51:00 Procedure Times Start 07/30/20 13:46:00 Stop 07/30/20 13:47:00 Anesthesia Times Last Modified By: Colleen STONER, LUKEOR, Diana Avilez 07/30/20 13:50:14 Case Attendance FTURO Entry 1 Entry 2 Entry 3 Case Attendee Facundo Fam Jr., MD RN, CNOR, Marisela Steven CST Role Performed Surgeon - Primary Web Publisher - Primary Scrub - Primary Time In 07/30/20 13:40:00 07/30/20 13:40:00 07/30/20 13:40:00 Time Out 07/30/20 13:51:00 07/30/20 13:51:00 07/30/20 13:51:00 Procedure CYSTOSCOPY LOCAL WITH CYSTOSCOPY LOCAL WITH CYSTOSCOPY LOCAL WITH URETHRAL DILATION(.) URETHRAL DILATION(.) URETHRAL DILATION(.) Comments Last Modified By: Colleen RN, CNOR, Diana Macias RN, CNOR, Diana Macias RN, CNOR, Britta 07/30/20 13:50:29 07/30/20 13:50:29 07/30/20 13:50:29 Surgical [...] Macias RN, Lou Applicable) Hamida Avilez CST, Marisela Reeves Time [...] Macias RN, Lou Ann 07/30/20 13:50 Normal [facility] Main OR Preoperative Recordo n 07-30-2020 Main OR Preoperative Record Holding Area Document Type FTURO Summary Primary Physician: Facundo Fam Jr., MD Finalized Date/Time: 07/30/20 13:41:28 Pt. Name: YURI GALLAGHER /Sex: 1970 Female Med Rec #: [id number] Physician: Facundo Fam Jr., MD Financial #: [id number] Pt. Type: O Room/Bed: / Admit/Disch: 07/30/20 13:06:47 - Institution: Case Times Holding FTURO Pre-Care Text: Verifies consent for planned procedure, identifies individual values and wishes concerning care, includes family members in perioperative teaching Secures patient's records' belongings, and valuables, maintains patient's dignity and privacy, and maintains patient confidentiality Entry 1 In Holding 07/30/20 13:19:00 Outcomes Met? Yes Last Modified By: Yuri Thacker LPN 07/30/20 13:19:37 Post-Care Text: The [...] RN, Lou Ann Document Signatures Signed By: Yuri Thacker LPN 07/30/20 13:22 LYNSEY Macias RN, Lou Ann 07/30/20 13:41 LYNSEY Macias RN, Lou Ann 07/30/20 13:41 [facility] Operative Reporton 1 Operative Report Patient: YURI GALLAGHER Age: 49 years Sex: Female : [...] urine. The Urethra was dilated to: 28 Danish w/ sounds. Devices Implanted: None. Removal: Cystoscope is removed, The patient tolerated it well. Postoperative Information Discharge: Patient is discharged home with antibiotic coverage, Follow up arranged. Normal [facility] Comment on above: Result Comment: Elec tronically [...] have a fever over 100 degrees Normal [facility] Ambulatory Clinical Summaryo n 07-21-2020 Ambulatory Clinical Summary {[id number]}CD:[id number] [facility] Ambulatory Clinical Summary {[id number]}CD:[id number] Li Puckett [facility] Patient Educationon 07-21-19 Patient Education Urinary Tract [...] Document Reviewed: 08/03/2012 ExitCare? Patient Information ?2013 [employer]. [facility] Urology Office/Clinic Noteon 07-21-2020 Urology Office/Clinic [...] Will order Local anesthesia. ABX sent to [facility] in [place]. Ordered: Urology Procedure Order US Renal 2. [...] day(s), # 2 tab(s), Refills(s) 0, Pharmacy: [facility]/pharmacy #[id number], 162, cm, 07/21/20 13:48:00 EST, Height/Length Dosing, 68.5, kg, 07/21/20 13:48:00 EST, Weight Dosing Urnls Dip Stick Auto w/o Microscopy POC 22810 I have reviewed the previous health record information and history for this pt. from Dr. Fam. Follow-up With When Contact Information Sarwat Yadav MD, Facundo [address] Additional Instructions: Patient Education Urinary Tract [...] Protein Urine Dipstick: Negative (07/21/20 13:39:00) Specific [place] Urine Dipstick: 1.020 (07/21/20 13:39:00) Urine Appearance [...] she is been treated with Bactrim DS. Normal [facility] Comment on above: Result Comment: Elec tronically Signed By: Sarwat Yadav MD, Facundo Felix\.br\Date and Time Signed: 07/21/20 14:42 EST\.br\Electronically Co-Signed By: Lety Marino MA\.br\Date and Time Co-Signed: 07/21/20 14:31 EST Vital Signs Date Time Vital Sign Value Performing Clinician Faci lity 04-10-2024 13:24-0400 Body height 160 cm Kyle Zhu MD Work Phone: [facility] 04-10-2024 13:24-0400 Body mass index (BMI) [Ratio] 23.74 kg/m2 Kyle Zhu MD Work Phone: [facility] 04-10-2024 13:24-0400 Body temperature 98.2 [degF] Kyle Zhu MD Work Phone: [facility] 04-10-2024 13:24-0400 Body weight 60.78 kg Kyle Zhu MD Work Phone: [facility] 04-10-2024 13:24-0400 Diastolic blood pressure 80 mm[Hg] Kyle Zhu MD Work Phone: [facility] 04-10-2024 13:24-0400 Heart rate 77 /min Kyle Zhu MD Work Phone: [facility] 04-10-2024 13:24-0400 SaO2% (BldA) [Mass fraction] 97 % Kyle Zhu MD Work Phone: [facility] 04-10-2024 13:24-0400 Systolic blood pressure 120 mm[Hg] Kyle Zhu MD Work Phone: [facility] 04-02-2024 10:11-0400 Body height 160.02 cm DAGMAR Feng Work Phone: [facility] 04-02-2024 09:07-0400 Body height 160.02 cm [facility] 04-02-2024 09:07-0400 Body mass index (BMI) [Ratio] 25 kg/m2 [facility] 04-02-2024 09:07-0400 Body temperature 97.4 [degF] [facility] 04-02-2024 09:07-0400 Body weight 64.01 kg [facility] 04-02-2024 09:07-0400 Diastolic blood pressure 80 mm[Hg] [facility] 04-02-2024 09:07-0400 Systolic blood pressure 124 mm[Hg] [facility] 03-21-2024 08:26-0400 Body height 160.02 cm [facility] 03-21-2024 08:26-0400 Body mass index (BMI) [Ratio] 24.6 kg/m2 [facility] 03-21-2024 08:26-0400 Body weight 63.04 kg [facility] 03-21-2024 08:26-0400 Diastolic blood pressure 70 mm[Hg] [facility] 03-21-2024 08:26-0400 Heart rate 73 /min [facility] 03-21-2024 08:26-0400 Respiratory rate 18 /min [facility] 03-21-2024 08:26-0400 SaO2% (BldA) [Mass fraction] 99 % [facility] 03-21-2024 08:26-0400 Systolic blood pressure 118 mm[Hg] [facility] 02-26-2024 13:28-0400 Body height 160.02 cm [facility] 02-26-2024 13:28-0400 Body mass index (BMI) [Ratio] 25.1 kg/m2 [facility] 02-26-2024 13:28-0400 Body weight 64.41 kg [facility] 02-26-2024 13:28-0400 Diastolic blood pressure 70 mm[Hg] [facility] 02-26-2024 13:28-0400 Heart rate 80 /min [facility] 02-26-2024 13:28-0400 SaO2% (BldA) [Mass fraction] 98 % [facility] 02-26-2024 13:28-0400 Systolic blood pressure 130 mm[Hg] [facility] 02-19-2024 15:29-0400 Body height 160.02 cm [facility] 02-19-2024 15:29-0400 Body mass index (BMI) [Ratio] 25.3 kg/m2 [facility] 02-19-2024 15:29-0400 Body weight 64.86 kg [facility] 02-19-2024 15:29-0400 Diastolic blood pressure 80 mm[Hg] [facility] 02-19-2024 15:29-0400 Heart rate 87 /min [facility] 02-19-2024 15:29-0400 SaO2% (BldA) [Mass fraction] 98 % [facility] 02-19-2024 15:29-0400 Systolic blood pressure 136 mm[Hg] [facility] 10-12-2023 08:26-0400 Body height 160.02 cm [facility] 10-12-2023 08:26-0400 Body mass index (BMI) [Ratio] 25.1 kg/m2 [facility] 10-12-2023 08:26-0400 Body weight 64.41 kg [facility] 10-12-2023 08:26-0400 Diastolic blood pressure 78 mm[Hg] [facility] 10-12-2023 08:26-0400 Heart rate 78 /min [facility] 10-12-2023 08:26-0400 SaO2% (BldA) [Mass fraction] 98 % [facility] 10-12-2023 08:26-0400 Systolic blood pressure 112 mm[Hg] [facility] 09-14-2023 09:36-0500 Body height 160.02 cm [facility] 09-14-2023 09:36-0500 Body mass index (BMI) [Ratio] 24.6 kg/m2 [facility] 09-14-2023 09:36-0500 Body weight 63.04 kg [facility] 09-14-2023 09:36-0500 Diastolic blood pressure 82 mm[Hg] [facility] 09-14-2023 09:36-0500 Heart rate 88 /min [facility] 09-14-2023 09:36-0500 SaO2% (BldA) [Mass fraction] 98 % [facility] 09-14-2023 09:36-0500 Systolic blood pressure 118 mm[Hg] [facility] 06-21-2023 07:56-0500 Body height 160 cm Marsha Landa APRN.CNP Work Phone: [facility] 06-21-2023 07:56-0500 Body weight 63.96 kg Marsha Chaconkaleb EPPERSON Work Phone: [facility] 03-20-2023 08:57-0400 Body height 160 cm JAM Mlegar MD Work Phone: [facility] 03-20-2023 08:57-0400 Body weight 61.24 kg NA Ramón AGUIRRE Work Phone: [facility] Encounters Encounter Date Encounter Type Care Provider Facility Start: 04-10-2024 End: 04-10-2024 Patient encounter procedure Kyle Zhu MD Work Phone: Gastroenterology Comment on above: Abdominal pain, unsp ecified abdominal location (Primary Dx) Start: 04-10-2024 End: 04-10-2024 ambulatory KYLE ZHU Facility:[facility] Start: 04-08-2024 End: 04-08-2024 ambulatory [facility] Start: 04-02-2024 End: 04-02-2024 ambulatory BLANKA AGUIRRE Not Available Start: 04-02-2024 End: 04-02-2024 Patient encounter procedure [facility] Work Phone: Start: 04-02-2024 End: 04-02-2024 ambulatory Genevieve Feng [facility] Work Phone: Start: 04-02-2024 End: 04-02-2024 Departed Referred DAGMAR Feng Work Phone: [facility] Work Phone: Start: 03-22-2024 End: 03-22-2024 ambulatory BLANKA AGUIRRE Not Available Start: 03-21-2024 End: 03-21-2024 ambulatory [facility] Work Phone: Start: 03-21-2024 End: 03-21-2024 Patient encounter procedure [facility] Work Phone: Start: 03-18-2024 End: 03-18-2024 ambulatory [facility] Start: 03-18-2024 End: 03-18-2024 ambulatory [facility] Start: 03-13-2024 Non-patient / Non-visit [facility] Work Phone: Start: 03-12-2024 End: 03-12-2024 ambulatory LINDA MUÑOZ Not Available Start: 03-05-2024 End: 03-05-2024 ambulatory LINDA MUÑOZ Not Available Start: 03-04-2024 Non-patient / Non-visit [facility] Work Phone: Start: 03-04-2024 End: 03-04-2024 ambulatory [facility] Start: 02-26-2024 End: 02-26-2024 ambulatory [facility] Work Phone: Start: 02-26-2024 End: 02-26-2024 Patient encounter procedure [facility] Work Phone: Start: 02-19-2024 End: 02-19-2024 ambulatory [facility] Work Phone: Start: 02-19-2024 End: 02-19-2024 Patient encounter procedure [facility] Work Phone: Start: 10-26-2023 End: 10-26-2023 ambulatory BETHANY URBANOCECI Not Available Start: 10-12-2023 Patient encounter status [facility] Start: 10-12-2023 End: 10-12-2023 ambulatory [facility] Work Phone: Start: 10-12-2023 End: 10-12-2023 Encounter for general adult medical examination without abnormal findings [facility] Start: 10-12-2023 End: 10-12-2023 Patient encounter procedure [facility] Work Phone: Start: 09-14-2023 End: 09-14-2023 Patient encounter procedure [facility] Work Phone: Start: 06-21-2023 End: 06-21-2023 ambulatory MARSHA LANDA Facility:[facility] Start: 06-21-2023 End: 06-21-2023 Patient encounter procedure Marsha Landa MOLDING ENGINEER.ACLS NURSE Work Phone: [facility] Comment on above: Right leg pain (Prim antonietta Dx); Numbness and tingling of right lower extremity; Piriformis syndrome, right Start: 06-12-2023 End: 06-12-2023 ambulatory LINDA TONI Not Available Start: 03-23-2023 End: 03-23-2023 ambulatory MD Agustin Mortensen Work Phone: [facility] Work Phone: Start: 03-23-2023 End: 03-23-2023 Patient encounter procedure MD Agustin Mortensen Work Phone: [facility] [address] Work Phone: Start: 03-20-2023 End: 03-20-2023 Patient encounter procedure Oscar Melgar MD Work Phone: Plastic Surgery Comment on above: Encounter for cosmet ic surgery (Primary Dx) Start: 10-20-2022 End: 10-21-[address] AGUSTIN MORTENSEN Facility:[facility] Start: 10-11-2022 End: 10-12-2022 ambulatory LORRI BERRY Facility:[facility] Procedures Date Procedure Procedure Detail Performing Clinician Start: 03-23-2023 XR pre/post mri xray MD Agustin Mortensen Work Phone: Start: 03-23-2023 MR lumbar spine wo con MD Agustin Mortensen Work Phone: Plan of Treatment Date Care Activity Detail Author Start: 01-30-2026 Diabetes Screening Diabetes Screenin g [facility] Start: 06-23-2024 Screening for malign ant neoplasm of colon [facility] Start: 06-12-2024 Screening for malign ant neoplasm of breast Mammogram Screening [facility] Start: 04-25-2024 End: 04-25-2024 Patient encounter procedure Radiology Ct Scan Comment on above: CT ENTEROGRAPHY W IV CON Start: 04-10-2024 End: 07-10-2024 25-hydroxyvitamin D3 [Mass/volume] in Serum or Plasma [facility] Comment on above: Expected: 04/10/2024 , Expires: 07/10/2024 Start: 04-10-2024 End: 07-10-2024 C reactive protein [Mass/volume] in Serum or Plasma [facility] Comment on above: Expected: 04/10/2024 , Expires: 07/10/2024 Start: 04-10-2024 End: 07-10-2024 Comprehensive metabolic 2000 panel - Serum or Plasma [facility] Work Phone: Comment on above: Expected: 04/10/2024 , Expires: 07/10/2024 Start: 04-02-2024 Bacteria identified in Urine by Culture [facility] Start: 03-10-2024 Covid-19 Vaccine ( season) Covid-19 Vaccine ( season) [facility] Start: 03-10-2024 Influenza vaccination Influenza Vacc ine (#1) [facility] Start: 04-25-2023 Shingrix Vaccine (2 of 2) Shingrix Vaccine (2 of 2) [facility] Start: 03-10-2023 Influenza vaccination [facility] Start: 07-10-2022 DEPRESSION ASSESSMENT DEPRESSION ASS ESSMENT [facility] Start: 2020 SHINGRIX VACCINE (1 of 2) SHINGRIX VACCINE (1 of 2) [facility] Start: 12-07-2015 COLOGUARD (FIT-DNA) COLOGUARD (FIT-D NA) [facility] Start: 12-07-[address] [facility] Start: 12-07-2015 COLORECTAL CANCER SCREENING COLORECTAL CANCER SCREENING [facility] Start: 12-07-[address] COLONOGRAPHY [facility] Start: 12-07-2015 DIABETES SCREEN DIABETES SCREEN [facility] Start: 12-07-2015 Diabetes Screening Diabetes Screenin g [facility] Start: 12-07-2015 FECAL OCCULT BLOOD FECAL OCCULT BLOO D [facility] Start: 12-07-2015 Lipid panel Lipid Screening [facility] Start: 12-07-2015 LIPID SCREEN LIPID SCREEN [facility] Start: 12-07-2015 Screening for malign ant neoplasm of colon [facility] Start: 12-07-2015 SIGMOIDOSCOPY SIGMOIDOSCOPY [facility] Start: [address] [facility] Start: 2000 HPV TESTING HPV TESTING [facility] Start: 2000 Screening for malign ant neoplasm of cervix HPV Testing [facility] Start: 12-07-1991 PAP TESTING PAP TESTING [facility] Start: 12-07-1991 Screening for malign ant neoplasm of cervix [facility] Start: 1989 Hepatitis B Vaccine (1 of 3 - 19+ 3-dose series) Hepatitis B Vaccine (1 of 3 - 19+ 3-dose series) [facility] Start: [address] [facility] Start: 1988 Anxiety Screening Anxiety Screening [facility] Start: 1988 Depression Screening Depression Scre ening [facility] Start: 1988 HEPATITIS C SCREENING HEPATITIS C [facility] Start: 1988 Hepatitis C screening Hepatitis C Sc [facility] Start: 1988 HIV SCREENING HIV SCREENING [facility] Start: 1988 HIV screening HIV Screening [facility] Start: 06-08-1971 COVID-19 VACCINE (#1) COVID-19 VACCI NE (#1) [facility] Start: 1970 HEPATITIS B (1 of 3 - 3-dose series) HEPATITIS B (1 of 3 - 3-dose series) [facility] Start: 1970 Hepatitis B Vaccine (1 of 3 - 3-dose series) Hepatitis B Vaccine (1 of 3 - 3-dose series) [facility] Cardiovascular stres s testing [facility] Comprehensive metabo lic 2000 panel - Serum or Plasma [facility] End: 05-10-2025 CT Small bowel W contrast PO and W contrast IV CT ENTEROGRAPHY W IVCON Radiology Routine Abdominal pain, unspecified abdominal location 1 Occurrences starting 04/10/2024 until 05/10/2025 [facility] Comment on above: 1 Occurrences starti ng 04/10/2024 until 05/10/2025 Holter monitor study [facility] US Abdomen limited [facility] US [facility] Immunizations Immunization Date Immunization Notes Care Provider Fa ritaty 02-28-2023 zoster vaccine recombinant [facility] 11-03-2020 COVID-19 Ad26.COV2.S (Anabell) [facility] Payers Date Payer Category Payer Self-pay [id number] 2023 Unknown [id number] 2023 Unknown [id number] 2022 Unknown MMO MMO [employer] PPO [id number] 2022-Present [phone] [address] [place] [address] PPO [id number] 1970 Unknown [id number] 1970 Unknown [id number] 1970 Unknown [id number] 1970 Unknown [id number] 1970 Unknown [id number] 1970 Unknown [id number] 1970 Unknown [id number] 1970 Unknown [id number] 1959 Unknown [id number] 1959 Unknown [id number] Unknown [id number] Social History Date Type Detail Facility Tobacco smoking stat us NHIS Tobacco smoking consumption unknown [facility] Start: 03-14-2023 End: 06-19-2023 History of [address] [facility] Start: 03-14-2023 End: 06-19-[address] [facility] National Score (1-10 0), lower number is lower risk 61 [facility] Start: 1970 Sex Assigned At Not on file [facility] Start: 1970 Sex Assigned At Female F [facility] Start: 10-12-2023 End: 04-10-2024 Tobacco smoking status NHIS Never smoked tobacco (finding) [facility] Start: 04-10-2024 Tobacco use and exposure Smoke less tobacco non-user [facility] Start: 04-10-2024 Alcoholic beverage intake Ex-drinker (finding) [facility] Clinical Notes 01-06-2015 to 04-10-2024 Kyle Zhu MD - 04/10/2024 1:36 PM Marsha Goldman, MOLDING ENGINEER.[facility] - 06/21/2023 8:00 AM Oscar Alamo MD - 03/20/2023 8:56 AM EDT Note Date & Type Note Facility 04-10-2024 Note HNO ID: [id number] Author: KYLE ZHU MD Service: ? Author Type: Physician Type: Progress Notes Filed: 04/10/2024 13:46 Note Text: Al Mesa Consultation requested by Dr. mesa for an opinion regarding abd pain. My final recommendations will be communicated back to the requesting physician by way of shared Medical record or letter to requesting physician via US mail. BP 120/80 Pulse 77 Temp 36.8 ?C (98.2 ?F) (Temporal) Ht 160 cm (5' 3 ) Wt 60.8 kg (134 lb) SpO2 97% BMI 23.74 kg/m? Medications: Current Outpatient Medications Medication Sig aspirin, enteric coated (ASPIRIN, ENTERIC COATED) 81 mg EC tablet Take 81 mg by mouth. busPIRone (BUSPAR) 5 mg tablet Take 5 mg by mouth. pantoprazole (PROTONIX) 40 mg tablet Take 40 mg by mouth. baclofen 10 mg tablet TAKE 1/2 TABLET BY MOUTH 3 TIMES A DAY LORazepam (ATIVAN) 0.5 mg Take 0.5 mg by mouth. (Patient not taking: Reported on 06/21/2023) No current facility-administered medications for this visit. Subjective: This 53 year old female patient with r and l upper abd pain, can move to either side. Pain and burning, wt stable, 1 bm q2d, no change in pain with a bm. 135# stable, no fevers. No help with protonix, CT scan 04/02 - possible thickening of the distal small bowel v under distension. .no EGD or colonoscopy. Negative cologard test. No FMH of Crohn's disease. Physical Examination: General Appearance: alert, oriented x 3, pleasant and in no acute distress Heart: regular rate and rhythm, no murmurs or gallops Lungs: breath sounds clear to auscultation bilaterally, no crackles, rhonchi, or wheezes Abdomen: not distended, normal bowel sounds, soft and depressible, no guarding or rebound no palpable mass no organomegaly Extremities: no cyanosis or edema CBC: @LASTLABX(WBC:2,HB,MCV,PLT,neut,l ymphp])@ CMP: No results found for: ALKPHOS , AST , ALT , TBILI , CBILI , GLUC , BUN , CREAT , NA , CHLOR , CO2 , TPROT , ALB , CA TSH: No results found for: TSH Impression and Plan: Ileal thickening - will check labs and CTE. Rx after. Suspect IBS - C and not Crohn's disease. I have confirmed and edited as necessary PFSH and ROS obtained by others. Kyle Zhu MD Date: April 10, 2024 [facility] 04-10-2024 History of Present illness Narrative Al Mesa Consultation requested by Dr. mesa for an opinion regarding abd pain. My final recommendations will be communicated back to the requesting physician by way of shared Medical record or letter to requesting physician via US mail. BP 120/80 Pulse 77 Temp 36.8 C (98.2 F) (Temporal) Ht 160 cm (5' 3 ) Wt 60.8 kg (134 lb) SpO2 97% BMI 23.74 kg/m Medications: Current Outpatient Medications Medication Sig aspirin, enteric coated (ASPIRIN, ENTERIC COATED) 81 mg EC tablet Take 81 mg by mouth. busPIRone (BUSPAR) 5 mg tablet Take [address] mouth. [address]opraz[address] DR (PROTONIX) 40 mg tablet Take 40 mg by mouth. baclofen 10 mg tablet TAKE 1/2 TABLET BY MOUTH 3 TIMES A DAY LORazepam (ATIVAN) 0.5 mg Take 0.5 mg by mouth. (Patient not taking: Reported on 06/21/2023) No current facility-administered medications for this visit. Subjective: This 53 year old female patient with r and l upper abd pain, can move to either side. Pain and burning, wt stable, 1 bm q2d, no change in pain with a bm. 135# stable, no fevers. No help with protonix, CT scan 04/02 - possible thickening of the distal small bowel v under distension. .no EGD or colonoscopy. Negative cologard test. No FMH of Crohn's disease. Physical Examination: General Appearance: alert, oriented x 3, pleasant and in no acute distress Heart: regular rate and rhythm, no murmurs or gallops Lungs: breath sounds clear to auscultation bilaterally, no crackles, rhonchi, or wheezes Abdomen: not distended, normal bowel sounds, soft and depressible, no guarding or rebound no palpable mass no organomegaly Extremities: no cyanosis or edema CBC: @LASTLABX(WBC:2,HB,MCV,PLT,neut,l ymphp])@ CMP: No results found for: ALKPHOS , AST , ALT , TBILI , CBILI , GLUC , BUN , CREAT , NA , CHLOR , CO2 , TPROT , ALB , CA TSH: No results found for: TSH Impression and Plan: Ileal thickening - will check labs and CTE. Rx after. Suspect IBS - C and not Crohn's disease. I have confirmed and edited as necessary PFSH and ROS obtained by others. Kyle Zhu MD Date: April 10, 2024 documented in this encounter [facility] 03-18-2024 Note Patient: Socorro Felix And rews Procedure Information Date/Time: 03/18/24 1030 Procedure: Coronary angiography (Left) - PC APPROVED w possible PCI Location: [facility] 3 / [facility] (Cath) Providers: Seda Loza MD Clinical information reviewed: Physical Exam Airway Mallampati: II TM distance: >3 FB Neck ROM: full Cardiovascular Rhythm: regular Rate: normal (-) murmur Dental Pulmonary (-) decreased breath sounds, wheezes, rales Abdominal Abdomen: soft Bowel sounds: normal Anesthesia Plan ASA 3 (Conscious sedation) Anesthetic plan and risks discussed with patient. Use of blood products discussed with patient who consented to blood products. Plan discussed with attending and fellow. Additional Equipment Requests [facility] 03-04-2024 Note case [facility] 03-04-2024 Note Cardiology Clinic No te Chief Complaint: New patient for chest pain HPI: Socorro Gallagher is a 53 y.o. female with no significant past medical history that is referred to Cardiology clinic for abnormal stress test. Patient reports that stress test was performed due to upper abdominal pain/lower chest pain. This has started and worsened over the past month or so. She is concerned because she does have a strong family history of coronary artery disease. She states that it can occur with exertion, but there are times that does not occur. She denies any associated symptoms. No shortness of breath. No lower extremity edema, orthopnea, or paroxysmal nocturnal dyspnea. She denies any previous cardiac history. Patient denies any previous history of CVA, PVD, DM, HTN, Depressed LVEF, and CAD. On exercise stress test: ST-depression in the inferolateral leads at peak exercise and development of biphasic T-waves during recovery. Patient also experienced reproducible chest pain. Parkinson Treadmill Score is 1.8, which is a moderate risk. ROS 10 point ROS is performed and is negative unless otherwise specified in HPI Past Medical History She has no past medical history on file. Surgical History She has a past surgical history that includes Hysterectomy; section, classic; and Foot surgery. Social History She reports that she has never smoked. She has never used smokeless tobacco. No history on file for alcohol use and drug use. Family History Family History Problem Relation Name Age of Onset No Known Problems Mother Heart attack Father Coronary artery disease Father's Brother Stroke Paternal Grandfather Medications Current Outpatient Medications on File Prior to Visit Medication Sig Dispense Refill busPIRone (Buspar) 5 mg tablet Take 5 mg by mouth two times daily. estradiol (Estrace) 0.5 mg tablet Take 0.5 mg by mouth in the morning. Pt is taking half a pill No current facility-administered medications on file prior to visit. Allergies Patient has no known allergies. Physical Exam VITAL SIGNS: BP 123/79 (BP Location: Right arm, Patient Position: Sitting) Pulse 74 Ht 1.6 m (5' 3 ) Wt 64 kg (141 lb) SpO2 94% BMI 24.98 kg/m??? Constitutional: Well developed, Well nourished, No acute distress, Non-toxic appearance. HENT: Normocephalic, Atraumatic, Bilateral external ears have normal appearance, Nose appears normal, nares are patent. Eyes: PERRLA, EOMI, Conjunctiva normal, No discharge. Neck: Normal range of motion, No tenderness, Supple, No stridor. No cervical lymphadenopathy noted. Cardiovascular: Normal heart rate, Normal rhythm, No murmurs, No rubs, No gallops. Thorax & Lungs: Normal breath sounds, No respiratory distress, No wheezing, No chest tenderness to palpation. Abdomen: Bowel sounds normal, Soft, Nontender, No masses, No pulsatile masses. Skin: Warm, Dry, No erythema, No rash. Back: No tenderness, No CVA tenderness. Extremities: Intact distal pulses, No edema, No tenderness, No cyanosis, No clubbing. Musculoskeletal: Grossly normal strength in extremities Neurologic: Alert & oriented x 3, no gross focal neurological deficits Psychiatric: Affect normal, Judgment normal, Mood normal. EKG results: No results found for this or any previous visit (from the past 4464 hour(s)). Echo results: No echocardiogram results found for the past 12 months Radiology: No image results found. Assessment/Plan: Yuri Gallagher is a 53 y.o. female with Family history of ischemic heart disease Other chest pain Diagnoses and all orders for this visit: Other chest pain - ECG 12 lead Given abnormal findings on stress test, in addition to strong family history, recommend further ischemic evaluation. Discussed proceeding with invasive coronary angiography with possible revascularization versus obtaining stress test with nuclear myocardial perfusion imaging. Patient discussed with her daughter, who is in the healthcare field, and patient wishes to proceed with coronary angiography. Procedure was explained to patient at length and in detail. Risks, benefits, and alternatives were discussed. Patient is informed that risks of this invasive procedure include, but are not limited to, bleeding, hematoma, kidney injury, CVA, arrythmia requiring defibrillation, need for emergent open heart surgery, and . Patient understands these risks and wishes to proceed. Optimize medical management Aggressive risk factor modification Plan of care discussed with patient. All questions were answered. Patient voices understanding and is agreeable with current plan. Patient was educated on red flag symptoms. Strict return precautions were provided. Patient verbalizes understanding Follow-up in cardiology clinic in 3 months, or sooner as needed Thank you for allowing us to participate in the care of your patient. Please do not hesitate to contact cardiolog (more content not included)... [facility] 06-21-2023 History of Present illness Narrative Images [...] under the care of pain management in [facility] where she recently underwent a right gluteal nerve block without improvement in symptoms. She states that at postinjection follow-up she was offered a piriformis injection but is reluctant to proceed. She reports that she recently had an EMG completed. EMG results were not available at time of today's appointment. 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 Mortensen - PCP [...] Foot-Right Back-Lower radiates to R leg Description: Aching;Burning;Dull;Numbness;Ting ling Burning Numbness and tingling on R leg Duration Units: Months Years got worse in the last year Frequency: Continuous Continuous Intervention/Comfort measure: Medication;Reposition;Positioning -- Litigation: No Workers' Compensation: No YELLOW [...] Normal Limits Logroll: Negative Tinel's test: Negative Blandon's test: Negative Prone extension Negative Neuro Tests: [...] TIME: 7:51 AM documented in this encounter [facility] 06-21-2023 Note HNO ID: [id number] Author: Marsha Landa APRN.CNP Service: ? Author Type: Nurse Practitioner Type: [...] under the care of pain management in [facility] where she recently underwent a right gluteal nerve block without improvement in symptoms. She states that at postinjection follow-up she was offered a piriformis injection but is reluctant to proceed. She reports that she recently had an EMG completed. EMG results were not available at time of today's appointment. 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 Mortensen - PCP [...] Foot-Right Back-Lower radiates to R leg Description: Aching;Burning;Dull;Numbness;Ting ling Burning Numbness and tingling on R leg Duration Units: Months Years got worse in the last year Frequency: Continuous Continuous Intervention/Comfort measure: Medication;Reposition;Positioning -- Litigation: No Workers' Compensation: No YELLOW [...] Denies chapa (more content not included)... [facility] 03-20-2023 History of Present illness Narrative Ms. Scoorro Gallagher is a 52 year old, female [...] local; outpatient - abdomen, +/- flanks. Oscar Melgar MD documented in this encounter [facility] 10-20-2022 Note CONSULTATION CONSULTATION DATE: 10/20/2022 TO: Agustin Mortensen M.D. CHIEF COMPLAINT: Includes right leg [...] our patients to inform us about any [id number] medications or herbal remedies/nutritional supplements/alternative remedies. 2. [...] options with their primary care provider. [facility] 10-11-2022 Note PROCEDURE: XR ANKLE RT [...] by: CHRISTINA ROBLERO Date: 2022-10-11 11:33 [facility] 10-11-2022 Note PROCEDURE: XR ANKLE RT [...] authenticated by: CHRISTINA ROBLERO Date: 2022-10-11 11:33 [facility] 01-06-2015 Evaluation note Diagnosis Onset Date Anxiety January 06, 2015 acute Anxiety January 06, 2015 acute Palpitations acute Screening for lipid disorders acute Screening for metabolic disorder acute Screening, deficiency anemia , iron acute Wellness examination acute [facility] Work Phone: Evaluation note* Diagnosis Encounter for cosmetic surgery- Primary Other plastic surgery for unacceptable cosmetic appearance [facility] noteNo [facility] Work Phone: [facility]* Diagnosis Right leg pain- Primary Pain in limb Numbness and tingling of right lower extremity Piriformis syndrome, right [facility] Diagnosis Onset Date Resolution Status Chest tightness acute Dizziness acute Family history of heart dise ase in male family member before age 55 acute Palpitations acute [facility] Work Phone: Evaluation note* Diagnosis Onset Date Resolution Status Chest tightness acute Dizziness acute Family history of heart dise ase in male family member before age 55 acute Palpitations acute Abdominal pain acute Bloating acute [facility] Work Phone: Evaluation note* Diagnosis Onset Date Resolution Status Chest tightness acute Dizziness acute Family history of heart dise ase in male family member before age 55 acute Palpitations acute Abdominal pain acute Bloating acute Anxiety January 06, 2015 acute Chest wall pain acute Myocardial bridge acute UTI (urinary tract infection) acute [facility] Work Phone: Evaluation note* Diagnosis Abdominal pain, unspecified abdominal location- Primary documented in this encounter [facility] Summary Purpose Family History No Family History Records Found Relationship Condition Age at Onset Recorded Date/T valentina father Unknown Heart disease Unknown Advance Directives No Advanced Directives Records Found Advance Directive Response Recorded Date/ Time Advance Directives No December 03 3:22pm Advance Directive Response Recorded Date/ Time Advance Directives No March 11:05am Advance Directive Response Recorded Date/ Time Advance Directives No March 9:01am Chief Complaint and Reason for Visit Chief [...] before age 55 Palpitations Abdominal pain Bloating Chief Complaint no appatite, no ener gy, not feel well dicuss more about pain under ribs follow up after testing Reason for Visit Chest tightness Dizziness Family history of heart disease in male family member before age 55 Palpitations Abdominal pain Bloating Chief Complaint no appatite, no ener gy, not feel well dicuss more about pain under ribs follow up after testing frequency, burning Reason for Visit Chest tightness Dizziness Family history of heart disease in male family member before age 55 Palpitations Abdominal pain Bloating Anxiety Chest wall pain Myocardial bridge UTI (urinary tract infection) Chief Complaint no appatite, no ener gy, not feel well dicuss more about pain under ribs follow up after testing Urinary tract infection frequency, burning Reason for Visit Chest tightness Dizziness Family history of heart disease in male family member before age 55 Palpitations Abdominal pain Bloating Anxiety Chest wall pain Myocardial bridge UTI (urinary tract infection) Reason for Referral Specialty Diagnoses / Procedures Referred By Tyson t Referred To Contact CT IMAGING Diagnoses Abdominal pain, unspecified abdominal location Procedures CT ENTEROGRAPHY W IVCON CT ABD & PELVIS W/CONTRAST Kyle Zhu MD [address] [place] [address] Ct Imaging [place] [id number] Referral ID Status Reason Start Date Expiration Date Visits Requested Visits Authorized [id number] Authorized Auto-Generat ed Referral 04/10/2024 05/10/2025 1 1 Additional Source Comments INFORMATION SOURCE (unrecogn ized section and content) DATE CREATED AUTHOR 09/08/2020 Italo Cotter [facility] DATE CREATED AUTHOR AUTHOR'S ORGANIZ ATION 10/27/2022 [facility] DATE CREATED AUTHOR AUTHOR'S ORGANIZ ATION 04/06/2024 [facility] DATE CREATED AUTHOR AUTHOR'S ORGANIZ ATION 04/06/2024 [facility] EPIC DATE CREATED AUTHOR AUTHOR'S ORGANIZ ATION 04/09/2024 [facility] DATE CREATED AUTHOR AUTHOR'S ORGANIZ ATION 04/15/2024 [facility] Source Comments (unrecognize d section and content) In the event this informatio n is protected by the Federal Confidentiality of Alcohol and Drug Abuse Patient Records regulations: The Federal rules restrict any use of the information to criminally investigate or prosecute any alcohol or drug abuse patient.[facility] the event this information is protected by the Federal Confidentiality of Alcohol and Drug Abuse Patient Records regulations: The Federal rules restrict any use of the information to criminally investigate or prosecute any alcohol or drug abuse patient.[facility] the event this information is protected by the Federal Confidentiality of Alcohol and Drug Abuse Patient Records regulations: The Federal rules restrict any use of the information to criminally investigate or prosecute any alcohol or drug abuse patient.[facility] the event this information is protected by the Federal Confidentiality of Alcohol and Drug Abuse Patient Records regulations: The Federal rules restrict any use of the information to criminally investigate or prosecute any alcohol or drug abuse patient.[facility] Reason for Visit (unrecogniz ed section and content) Reason Comments Consult Reason Comments New Patient Low Back Pain Reason Comments New Patient Per CT small bowel p olyp Care Teams (unrecognized sec tion and content) Team Status: Active Member Role Status Dates Agustin Mortensen MD Primary Care Provider Active Team Status: Inactive Member Role Status Dates Agustin Mortensen MD Primary Care Provider Active Jose Guadalupe Costa MD Attending Provider Acti ve Team Status: Active Member Role Status Dates DAGMAR Perrin Primary Care Provider Active Team Status: Inactive Member Role Status Dates Agustin Mortensen MD Primary Care Provider Active Start: September 14, 2023 End: September 14, 2023 DAGMAR Perrin Attending Provider Act star Start: September 14, 2023 End: September 14, 2023 Team Status: Inactive Member Role Status Dates Agustin Mortensen MD Primary Care Provider Active Start: October 12, 2023 End: October 12, 2023 DAGAMR Perrin Attending Provider Act star Start: October 12, 2023 End: October 12, 2023 Team Status: Inactive Member Role Status Dates DAGMAR Perrin Primary Care Provider, Attending Provider Active Start: February 19, 2024 End: February 19, 2024 Team Status: Inactive Member Role Status Dates Genevieve Rohrbacher , MOLDING ENGINEER PASTER OPERATOR-C Primary Care Provider, Attending Provider Active Start: February 26, 2024 End: February 26, 2024 Team Status: Active Member Role Status Dates Genevieve Feng APRN PASTER OPERATOR-C Primary Care Provider Active Start: March 132023 Seda Loza MD Attending Provider Active Start: March 13, 2024 Team Status: Inactive Member Role Status Dates Genevieve Feng APRN PASTER OPERATOR-C Primary Care Provider, Attending Provider Active Start: March 21, 2024 End: March 21, 2024 Team Status: Active Member Role Status Dates Genevieve Feng APRN PASTER OPERATOR-C Primary Care Provider Active Start: March 04, 2024 Sandeep Mcclelland DO Attending Provider Active Sta rt: March 04, 2024 Team Status: Inactive Member Role Status Dates Genevieve Feng APRN PASTER OPERATOR-C Primary Care Provider, Attending Provider Active Start: April 02, 2024 End: April 02, 2024 Team Status: Inactive Member Role Status Dates Genevieve Feng APRN PASTER OPERATOR-C Attending Provider Act star Start: April 02, 2024 End: April 02, 2024 Goals (unrecognized section and content) Goals [...] BE BASED ON THE PRIMARY CLINICAL RECORDS. [employer] [facility]. provides no warranty or guarantee of the accuracy or completeness of information in this document.
--- NOTE | 2024-04-17 15:15 | PM.CN ---
Consult Note: HPI Data of Consult Patient: known to practice within the last 3 years Requesting Physician: Skye Marc NP Primary Care Provider: DANAY BLACKMON Consult Narrative Reason for consult: abdominal pain Narrative: Missy Gallagher a pleasant 53 year old female presents for evaluation and management of chest/rib cage pain. 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 Patient has had intermittent rib tightness with burning and spasming, has had an extensive GI workup and cardiac workup which have been unremarkable. recent abdominal ultrasound and CT unremarkable. Patient has found significant benefit to lorazepam .5mg for 1.5 days after utilizing. She has not utilized baclofen, threw out her old supply. utilizing naproxen prn with no improvement. Patient reports this tightness under her breasts and bilateral ribs that improves with lying on her stomach, intermittent radiating pain/funny feeling to chest. cc:: CC: Skye Marc NP Review of Systems ROS Status of ROS 10 or more systems reviewed and unremarkable except as noted in history and below Musculoskeletal Reports: back pain PFSH PFSH Surgical History History of foot surgery ?Z98.890 - Other specified postprocedural states (ICD-10) History of hysterectomy ?Z90.710 - Acquired absence of both cervix and uterus (ICD-10) Previous section ?Z98.891 - History of uterine scar from previous surgery (ICD-10) Meds Home Medications and Allergies Home Medications ?Medication ?Instructions ?Recorded ?Confirmed ?Type baclofen 10 mg oral granules in 10 mg PO TID 02/01/23 04/25/23 History packet baclofen 10 mg tablet 10 mg PO DAILY PRN muscle spasm 09/12/23 Rx #90 tabs Allergies Allergy/AdvReac Type Severity Reaction Status Date / Time No Known Drug Allergies Allergy Verified 04/25/23 09:20 Exam Constitutional Documenting provider has reviewed patient's vital signs: yes Common normals: no apparent distress, oriented x3, healthy appearing, alert and well nourished General appearance: cooperative HENMT Common normals: normocephalic, hearing grossly normal bilaterally and moist oral mucous membranes Head and scalp: normocephalic Eye Common normals: PERRL Pupil: PERRL Neck & C-Spine Common normals: full ROM General: normal visual inspection Chest Common normals: inspection of chest normal Respiratory Common normals: normal respiratory effort, no retractions and no use of accessory muscles Back & Pelvis Common normals: thoracic and lumbar spine normal to inspection and thoraco-lumbar ROM normal Lumbar spine/lower back: normal to inspection, pain with ROM and lumbar spinal tenderness; no paraspinal muscle tenderness and no paraspinal muscle spasm Other: notable tenderness to T4-6 facets altered sensation to left T4-6 dermatomal pattern potential thoracic radiculopathy following T4-6 dermatomal pattern Extremity Common normals: normal to inspection and full ROM Neuro Common normals: oriented x3, CN's II-XII intact bilaterally, moves all extremities, no focal motor deficits, no sensory deficits noted and deep tendon reflexes 2+ bilaterally Sensorium/orientation: alert Motor exam: strength 5/5 throughout and no movement abnormalities noted Psych Common normals: mental status grossly normal, thought process normal, cooperative, affect normal, speech normal and activity/motor behavior normal Speech: normal speech Thought process: normal thought process Assessment and Plan Assessment and Plan (1) Thoracic back pain: (2) Thoracic radiculopathy: (3) Myalgia: Plan update thoracic xray restart baclofen 5-10mg daily PRN pain/spasms would 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
== END 2024-04-17 14:37 | disposition home or self-care (01) ==
LOC: PM 14:37
PROVIDERS: PCP Nurse Practitioner Family; Visit Provider Nurse Practitioner
DX: M54.6 Pain in thoracic spine (principal); M79.10 Myalgia, unspecified site; M51.14 Intervertebral disc disorders with radiculopathy, thoracic region
CPT/HCPCS: 72070; G0463

== ENCOUNTER 2024-04-17 15:19 | Outpatient (OUT) | payer OTHER, SELFPAY ==
--- NOTE | 2024-04-17 15:35 | XR_ITS ---
The [address] [address] Patient Name: YURI SMITH MRN: [id number] date: 1970 Sex: F Assigned Patient Location: LAB Current Patient Location: LAB Accession/Order Number: [id number] Exam Date: 04/17/2024 15:28 Report Date: 04/18/2024 08:57 At the request of: NEELIMA SUAZO Procedure: XR thoracic spine 2V EXAMINATION: XR thoracic spine 2V HISTORY: Thoracic radiculopathy M54.14 ; pain tightness across the upper abdomen and lower rib region extending to upper back; no known injury COMPARISON: No relevant comparison available. FINDINGS: BONES: No significant spondylosis, fracture, or visible bony lesion. DISC SPACES: Multilevel mild degenerative changes of the midthoracic spine. PARASPINOUS: Negative. No paraspinous abnormality is seen. OTHER: Negative. XR/XR thoracic spine 2V IMPRESSION: 1. Multilevel mild degenerative disc disease and minimal right convex curvature of thoracic spine. 2. No specific findings to account for patient's symptoms. Electronically authenticated by: CHRISTINA ROBLERO Date: 04/18/2024 08:57
== END 2024-04-17 15:20 | disposition home or self-care (01) ==
LOC: LAB 15:21
PROVIDERS: PCP Nurse Practitioner Family; Visit Provider Nurse Practitioner
DX: M54.6 Pain in thoracic spine (principal); M51.14 Intervertebral disc disorders with radiculopathy, thoracic region
CPT/HCPCS: 72070

== ENCOUNTER 2024-04-23 11:40 | Outpatient (OUT) | payer OTHER, SELFPAY ==
--- NOTE | 2024-04-23 | CONS_ITS ---
CONSULTATION DATE: 04/23/2024 TO: Dr. Feng CHIEF COMPLAINT: Includes mid thoracic pain, flank pain, left worse than right side. HISTORY: She rates the pain as being 2-7/10 pain, a tightening type of pain, increased with activities such lifting maneuvers, pushing/pulling maneuvers and if she ?bears down?, such as coughing, sneezing. She feels most comfortable in the semi-recumbent position. Denies any change in bowel and bladder habits or new sensorimotor changes in her lower extremities. CURRENT MEDICATION: Includes Medrol Dosepak, baclofen and lorazepam. Her RIANA on today?s visit was 24. EXAM: Notable for patient having dysesthesia and hyperesthesia along the T8 dermatome, most significant on the left than the right side, with significant myofascial dysfunction and spasm and myalgia of the iliocostalis muscle in the thoracic area. 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 RECOMMENDATIONS: I recommend thoracic MRI. Will see the patient after she has obtained the imaging studies. As part of providing excellent, safe, comprehensive care, the following was completed at our patient's visit: 1. A medication reconciliation and review to ensure accurate knowledge of current/active medications, including asking our patients to inform us about any [id number] medications or herbal remedies/nutritional supplements/alternative remedies. 2. A review to specifically ensure our patients have had annual screening for: elevated body mass index (BMI, see intake chart for exact total), tobacco use, screening for depression, and screening for unhealthy alcohol use. When screening is concerning, patients are provided with education and the specific recommendation to discuss the concerning health issue and treatment options with their primary care provider. [facility]
--- OUTSIDE RECORDS SUMMARY | 2024-04-23 11:44 | XMS_ITS | CCD ---
Author Organization [facility] Care Team Providers Care Cross Cut Sawyer Name Role Phone DR AGUSTIN MORTENSEN Primary Care Unavailable LAKSHMIPATHY ., NARENDRANATH Admitting Mariella vailable LAKSHMIPATHY ., SCARENDRANATH Consulting Mariella vailable LAKSHMISHMIPATHY ., JOSE GUADALUPE Attending Mariella brookilaLORRI Andrew Admitting Unavailable LORRI BERRY Attending Unavailable DR CHRISTINA ROBLERO Consulting Unavailable DR AGUSTIN MORTENSEN Primary Care Unavailable LORRI BERRY Consulting Unavailable Unavailable Primary Care Provider UnavailMD Agustin Ramirez Primary Care Provider [phone] MD Jose Guadalupe Costa Attending Provider Unavailable DAGMAR Feng Attending Provider Genevieve Feng Attending Unavailable Genevieve Feng Admitting [...] 25-hydroxyvitamin D3 [Mass/Vol] 39.3 ng/mL Normal 31.0-80.0 [facility] Comment on above: Order Comment: Speci men Type: BLOOD SPECIMEN Ordering Facility: [facility] Address: [address] [place] [address] Result Comment: Clas sification of 25 [place] Vitamin D status: Deficiency/Insufficiency: < or = 30 ng/ml. Sufficiency/Optimal Levels: 31-80 ng/mL Toxicity: > 100 ng/mL. Test performed by chemiluminescent immunoassay. Performed By: #### 1 989-3 #### [facility] CLIA [id number] [address] [place], [place] [address] [place] CBC panel Auto (Bld)on 04-10 Erythrocyte distribution width (RBC) [Ratio] 12.4 % 11.5 - 15.0 % [facility] Hematocrit (Bld) [Volume fraction] 37.7 % 36.0 - 46.0 % [facility] Hemoglobin (Bld) [Mass/Vol] 12.5 g/dL 11.5 - 15.5 g/dL [facility] Interpretation and review of laboratory results Normal [facility] MCH (RBC) [Entitic mass] 30.8 pg 26.0 - 34.0 pg [facility] MCHC (RBC) [Mass/Vol] 33.2 g/dL 30.5 - 36.0 g/dL [facility] MCV (RBC) [Entitic vol] 92.9 fL 80.0 - 100.0 fL [facility] Nucleated RBC (Bld) [#/Vol] NINF [facility] Platelet mean volume (Bld) [Entitic vol] 10.6 fL 9.0 - 12.7 fL [facility] Platelets (Bld) [#/Vol] 274 10*3/uL [facility] RBC (Bld) [#/Vol] 4.06 10*6/uL 3.90 - 5.2 0 m/uL [facility] WBC (Bld) [#/Vol] 5.79 10*3/uL [facility] Erythrocyte distribution width (RBC) [Ratio] 12.4 % Normal 11.5-15.0 [facility] Comment on above: Order Comment: Speci men Type: BLOOD SPECIMEN Ordering Facility: [facility] Address: [address] [place] [address] Performed By: #### 5 8410-2 #### [facility] CLIA [id number] [address] [place] [address] [place] Hematocrit (Bld) [Volume fraction] 37.7 % Normal 36.0-46.0 [facility] Comment on above: Order Comment: Speci men Type: BLOOD SPECIMEN Ordering Facility: [facility] Address: [address] [place] [address] Performed By: #### 5 8410-2 #### [facility] CLIA [id number] [address] [place] [address] [place] Hemoglobin (Bld) [Mass/Vol] 12.5 g/dL Normal 11.5-15.5 [facility] Comment on above: Order Comment: Speci men Type: BLOOD SPECIMEN Ordering Facility: [facility] Address: [address] [place] [address] Performed By: #### 5 8410-2 #### [facility] CLIA [id number] [address] [place] [address] [place] MCH (RBC) [Entitic mass] 30.8 pg Normal 26.0-34.0 [facility] Comment on above: Order Comment: Speci men Type: BLOOD SPECIMEN Ordering Facility: [facility] Address: [address] [place] [address] Performed By: #### 5 8410-2 #### [facility] CLIA [id number] [address] [place] [address] [place] MCHC (RBC) [Mass/Vol] 33.2 g/dL Normal 30.5-36.0 [facility] Comment on above: Order Comment: Speci men Type: BLOOD SPECIMEN Ordering Facility: [facility] Address: [address] [place] [address] Performed By: #### 5 8410-2 #### [facility] CLIA [id number] [address] [place] [address] [place] MCV (RBC) [Entitic vol] 92.9 fL Normal 80.0-100.0 [facility] Comment on above: Order Comment: Speci men Type: BLOOD SPECIMEN Ordering Facility: [facility] Address: [address] [place] [address] Performed By: #### 5 8410-2 #### [facility] CLIA [id number] [address] [place] [address] [place] Nucleated RBC (Bld) [#/Vol] 10*3/uL Normal <0.01 [facility] Comment on above: Order Comment: Speci men Type: BLOOD SPECIMEN Ordering Facility: [facility] Address: [address] [place] [address] Performed By: #### 5 8410-2 #### [facility] CLIA [id number] [address] [place] [address] [place] Platelet mean volume (Bld) [Entitic vol] 10.6 fL Normal 9.0-12.7 [facility] Comment on above: Order Comment: Speci men Type: BLOOD SPECIMEN Ordering Facility: [facility] Address: [address] [place] [address] Performed By: #### 5 8410-2 #### [facility] CLIA [id number] [address] [place] [address] [place] Platelets (Bld) [#/Vol] 274 10*3/uL Normal 150-400 [facility] Comment on above: Order Comment: Speci men Type: BLOOD SPECIMEN Ordering Facility: [facility] Address: [address] [place] [address] Performed By: #### 5 8410-2 #### [facility] CLIA [id number] [address] [place] [address] [place] RBC (Bld) [#/Vol] 4.06 10*6/uL Normal 3.90-5.20 [facility] Comment on above: Order Comment: Speci men Type: BLOOD SPECIMEN Ordering Facility: [facility] Address: [address] [place] [address] Performed By: #### 5 8410-2 #### [facility] CLIA [id number] [address] [place] [address] [place] WBC (Bld) [#/Vol] 5.79 10*3/uL Normal 3.70-11.00 [facility] Comment on above: Order Comment: Speci men Type: BLOOD SPECIMEN Ordering Facility: [facility] Address: [address] [place] [address] Performed By: #### 5 8410-2 #### [facility] CLIA [id number] [address] [place] [address] [place] CRP SerPl-mCncon 04-10-2024 CRP [Mass/Vol] mg/L Normal <0.9 [facility] Comment on above: Order Comment: Speci men Type: BLOOD SPECIMEN Ordering Facility: [facility] Address: [address] [place] [address] Performed By: #### 2 4323-8, 1987-11 #### [facility] CLIA [id number] [address] [place] [address] [place] Comprehensive metabolic 2000 panelon 04-10-2024 Albumin [Mass/Vol] 4.5 g/dL Normal 3.9-4.9 [facility] Comment on above: Order Comment: Speci men Type: BLOOD SPECIMEN Ordering Facility: [facility] Address: [address] [place] [address] Performed By: #### 2 4323-8, 1987-11 #### [facility] CLIA [id number] [address] [place] [address] [place] ALP [Catalytic activity/Vol] 80 U/L Normal 34-123 [facility] Comment on above: Order Comment: Speci men Type: BLOOD SPECIMEN Ordering Facility: [facility] Address: [address] [id number] Performed By: #### 2 4328, 1987-11 #### [facility] CLIA [id number] [address] [place] [address] [place] ALT [Catalytic activity/Vol] 14 U/L Normal 7-38 [facility] Comment on above: Order Comment: Speci men Type: BLOOD SPECIMEN Ordering Facility: [facility] Address: [address] [place] [address] Performed By: #### 2 4328, 1987-11 #### [facility] CLIA [id number] [address] [place] [address] [place] Anion gap [Moles/Vol] 12 mmol/L Normal 8-15 [facility] Comment on above: Order Comment: Speci men Type: BLOOD SPECIMEN Ordering Facility: [facility] Address: [address] [place] [address] Performed By: #### 2 4328, 1987-11 #### [facility] CLIA [id number] [address] [place] [address] [place] AST [Catalytic activity/Vol] 26 U/L Normal 13-35 [facility] Comment on above: Order Comment: Speci men Type: BLOOD SPECIMEN Ordering Facility: [facility] Address: [address] [id number] Performed By: #### 2 4323-8, 1987-11 #### [facility] CLIA [id number] [address] [place] [address] [place] Bilirubin [Mass/Vol] 0.2 mg/dL Normal 0.2-1.3 [facility] Comment on above: Order Comment: Speci men Type: BLOOD SPECIMEN Ordering Facility: [facility] Address: [address] [place], [place] [address] Performed By: #### 2 4323-02, 1987-11 #### [facility] CLIA [id number] [address] [place] [address] [place] Calcium [Mass/Vol] 9.6 mg/dL Normal 8.5-10.2 [facility] Comment on above: Order Comment: Speci men Type: BLOOD SPECIMEN Ordering Facility: [facility] Address: [address] [place], [place] [address] Performed By: #### 2 4323-02, 1987-11 #### [facility] CLIA [id number] [address] [place] [address] [place] Chloride [Moles/Vol] 102 mmol/L Normal 98-107 [facility] Comment on above: Order Comment: Speci men Type: BLOOD SPECIMEN Ordering Facility: [facility] Address: [address] [place], [place] [address] Performed By: #### 2 4323-02, 1987-11 #### [facility] CLIA [id number] [address] [place] [address] [place] CO2 [Moles/Vol] 24 mmol/L Normal 22-30 [facility] Comment on above: Order Comment: Speci men Type: BLOOD SPECIMEN Ordering Facility: [facility] Address: [address] [place], [place] [address] Performed By: #### 2 4323-02, 1987-11 #### [facility] CLIA [id number] [address] [id number] [place] Creatinine [Mass/Vol] 0.78 mg/dL Normal 0.58-0.96 [facility] Comment on above: Order Comment: Speci men Type: BLOOD SPECIMEN Ordering Facility: [facility] Address: [address] [place], [place] [address] Performed By: #### 2 4323-02, 1987-11 #### [facility] CLIA [id number] [address] [place] [address] [place] Creatinine and Glomerular filtration rate.predicted panel (S/P/Bld) 91 mL/min/1.73m??? Normal >=60 [facility] Comment on above: Order Comment: Roman arriola Type: BLOOD SPECIMEN Ordering Facility: [facility] Address: [address] [place] [address] Result Comment: Emelyn mated Glomerular Filtration Rate [...] Performed By: #### 2 43238, 1987-11 #### [facility] CLIA [id number] [address] [place] [address] [place] Glucose [Mass/Vol] 94 mg/dL Normal 74-99 [facility] Comment on above: Order Comment: Roman arriola Type: BLOOD SPECIMEN Ordering Facility: [facility] Address: [address] [place] [address] Result Comment: The [place] [employer] (ADA) provides guidance for cutoff [...] Standards of Medical Care in Diabetes 2016, [place] [employer]. Diabetes Care. 2016.39(Suppl 1). Performed By: #### 2 4323-8, 1987-11 #### [facility] CLIA [id number] [address] [place] [address] [place] Potassium [Moles/Vol] 4.5 mmol/L Normal 3.7-5.1 [facility] Comment on above: Order Comment: Speci men Type: BLOOD SPECIMEN Ordering Facility: [facility] Address: [facility] [address] Performed By: #### 2 43209-14, 1987-11 #### [facility] CLIA [id number] [address] [place] [address] [place] Protein [Mass/Vol] 7.7 g/dL Normal 6.3-8.0 [facility] Comment on above: Order Comment: Speci men Type: BLOOD SPECIMEN Ordering Facility: [facility] Address: [address] [place] [address] Performed By: #### 2 4323-02, 1987-11 #### [facility] CLIA [id number] [address] [place] [address] [place] Sodium [Moles/Vol] 138 mmol/L Normal 136-144 [facility] Comment on above: Order Comment: Speci men Type: BLOOD SPECIMEN Ordering Facility: [facility] Address: [address] [place] [address] Performed By: #### 2 4323-02, 1987-11 #### [facility] CLIA [id number] [address] [place] [address] [place] Urea nitrogen [Mass/Vol] 11 mg/dL Normal 7-21 [facility] Comment on above: Order Comment: Speci men Type: BLOOD SPECIMEN Ordering Facility: [facility] Address: [address] [place] [address] Performed By: #### 2 4328, 1987-11 #### [facility] CLIA [id number] [address] [place] [address] [place] ABDOMEN PELVIS [...] Cx Nom (U) ORGANISM: Escherichia coli (O:ESCCOL) Sheridan Count >100,000 Aerobic LEXIS Charge (NMIC56) ---- [...] RESISTANT TO ALL B-LACTAM DRUGS. PERFORMED BY: [place] [address] PATHOLOGIST WASH TUB MACHINE OPERATOR ANUSHA ROMO M.D. Normal [facility] Comment on above: Performed By: #### C UU #### [address] 03-18-2024 - Attestation signed by Seda [...] wishes to proceed. Amairani Tinoco MD PGY-4 commander internal affairs [facility] NURSNOTEon 03-18-2024 NURSNOTE RN educated pt on d/ c instructions. RN encouraged pt to voice any questions or concerns. Pt verbalizes no questions or concerns at this time. Pt was wheeled off of unit with all of belongings. [facility] Basophils Auto (Bld) [#/Vol] on 03-13-2024 Basophils (Bld) [#/Vol] 0.0 10 3/uL 0.0-0.1 [facility] Basophils/100 WBC Auto (Bld) on 03-13-2024 Basophils/100 WBC (Bld) 0.6 % 0.2-2.0 [facility] Eosinophils/100 WBC Auto (Bl d)on 03-13-2024 Eosinophils/100 WBC (Bld) 2.4 % 0.9-7.0 [facility] Erythrocyte distribution wid th Auto (RBC) [Ratio]on 03-13-2024 Erythrocyte distribution width (RBC) [Ratio] 12.0 % 11.0-15.0 [facility] Estimated glomerular filtrat ion rate (GFR) non- Americanon 03-13-2024 GFR/1.73 sq M.predicted among non-blacks MDRD (S/P/Bld) [Vol rate/Area] mL/min/{1.73_m2} >=60 [facility] Hematocrit Auto (Bld) [Volum e fraction]on 03-13-2024 Hematocrit (Bld) [Volume fraction] 36.7 % 36.0-48.0 [facility] Hemoglobin [Mass/volume] in Bloodon 03-13-2024 Hemoglobin (Bld) [Mass/Vol] 12.3 g/dL 12.0-16.0 [facility] Laboratory - Chemistry and C hemistry - challengeon 03-13-2024 Calcium [Mass/Vol] 8.8 mg/dL 8.5-10.1 [facility] Chloride [Moles/Vol] 99 mmol/L 98-107 [facility] CO2 [Moles/Vol] 32.4 mmol/L High 21.0-32.0 [facility] Creatinine [Mass/Vol] 0.66 mg/dL 0.55-1.02 [facility] GFR/1.73 sq M.predicted MDRD (S/P/Bld) [Vol rate/Area] mL/min/{1.73_m2} >=60 [facility] Glucose [Mass/Vol] 97 mg/dL 74-106 [facility] Potassium [Moles/Vol] 4.3 mmol/L 3.5-5.1 [facility] Sodium [Moles/Vol] 136 mmol/L 136-145 [facility] Urea nitrogen [Mass/Vol] 17.0 mg/dL 7.0-18.0 [facility] Urea nitrogen/Creatinine [Mass ratio] 25.8 mg/mg [facility] - Hematology and Cell countson 03-13-2024 Immature granulocytes/100 WBC (Bld) 0.0 % 0.0-0.5 [facility] Leukocytes [#/volume] correc alejandra for nucleated erythrocytes in Blood by Automated counon 03-13-2024 WBC corrected for nucl RBC Auto (Bld) [#/Vol] 6.3 10 3/uL 4.0-11.0 [facility] Lymphocytes Auto (Bld) [#/Vo l]on 03-13-2024 Lymphocytes (Bld) [#/Vol] 1.7 10 3/uL 1.2-3.8 [facility] Lymphocytes/100 WBC Auto (Bl d)on 03-13-2024 Lymphocytes/100 WBC (Bld) 27.0 % 20.5-60.0 [facility] MCH Auto (RBC) [Entitic mass ]on 03-13-2024 MCH (RBC) [Entitic mass] 31.1 pg 26.7-34.0 [facility] MCHC Auto (RBC) [Mass/Vol]on 03-13-2024 MCHC (RBC) [Mass/Vol] 33.5 g/dL 29.9-35.2 [facility] MCV Auto (RBC) [Entitic vol] on 03-13-2024 MCV (RBC) [Entitic vol] 92.7 fL 81.0-99.0 [facility] Monocytes Auto (Bld) [#/Vol] on 03-13-2024 Monocytes (Bld) [#/Vol] 0.5 10 3/uL 0.3-0.8 [facility] Monocytes/100 WBC Auto (Bld) on 03-13-2024 Monocytes/100 WBC (Bld) 7.7 % 1.7-12.0 [facility] Neutrophils Auto (Bld) [#/Vo l]on 03-13-2024 Neutrophils (Bld) [#/Vol] 3.9 10 3/uL 1.4-6.5 [facility] Neutrophils/100 WBC Auto (Bl d)on 03-13-2024 Neutrophils/100 WBC (Bld) 62.3 % 43.0-75.0 [facility] No Panel Informationon 03-13 Eosinophils # (Auto) 0.2 10 3/uL 0.0-0.7 [facility] Immature Granulocyte # (Auto) 0.00 10 3/uL 0.00-0.03 [facility] Platelet mean volume Auto (B ld) [Entitic vol]on 03-13-2024 Platelet mean volume (Bld) [Entitic vol] 9.7 fL 9.5-13.5 [facility] Platelets Auto (Bld) [#/Vol] on 03-13-2024 Platelets (Bld) [#/Vol] 246 10 3/uL 150-450 [facility] RBC Auto (Bld) [#/Vol]on RBC (Bld) [#/Vol] 3.96 10 6/uL Low 4.20-5.40 [facility] Serum or plasma anion gap de terminationon 03-13-2024 Anion gap [Moles/Vol] 8.9 mmol/L [facility] DEXA BONE DENSITYon 03-12-20 DEXA BONE DENSITY FINDINGS: Dual Femur bone density obtained with a Snaptu whole body system: Region BMD Young-Adult Age-Matched [...] AP Spine bone density obtained with a YohobuyigLigerTail whole body system: Region BMD Young-Adult Age-Matched [...] Not Available Office Visiton 03-04-2024 Follow-up visit [id number] Yuri Gallagher 1970 F Date Provider Department Center 03/04/2024 Annelise-SEDA LOZA Family History Problem Relation Age of Onset No Known Problems Mother Heart attack Father Coronary artery disease Father's Brother Stroke Paternal Grandfather Family Status - Relation Status Age at Mother Father Father's Brother Paternal Grandfather Level of Service:85033 OR OFFICE/OUTPATIENT NEW MODERATE MDM 45 MINUTES Normal [facility] Orders Onlyon 03-04-2024 Orders Only [id number] Yuri Gallagher 1970 F Date Provider Department Center 03/04/2024 TANISHA ANDINO Family History Problem Relation Age of Onset No Known Problems Mother Heart attack Father Coronary artery disease Father's Brother Stroke Paternal Grandfather Family Status - Relation Status Age at Mother Father Father's Brother Paternal Grandfather Normal [facility] CNOVon 06-21-2023 [facility] Office Visit ([facility] ) SOCORRO GALLAGHER ([id number]) 1970 F Date Time Provider Department 06/21/23 8:00 AM MARSHA LANDA [facility] During your visit today, we recorded the following information about you: Weight Height 64 kg 1.6 m Marsha Landa, CUSTOMER SERVICE CONSULTANT.CRIME LAB TECHNICIAN 06/21/2023 9:30 AM Signed Spine Care Path [...] under the care of pain management in [facility] where she recently underwent a right gluteal nerve block without improvement in symptoms. She states that at postinjection follow-up she was offered a piriformis injection but is reluctant to proceed. She reports that she recently had an EMG completed. EMG results were not available at time of today's appointment. 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 Nonsmoker Pain localized to right buttocks Pain [...] prednisone Physical Therapy: Spring 2022 attended at [facility] , she states sessions were not effective [...] Denies christina (more content not included)... Normal [facility] RAD - Ultrasound Reporton RAD - Ultrasound Report [id number]#1 .00CD:127 Normal [facility] Coding Summary.on 07-31-2020 Coding Summary. CODING DATE: 07/31/2020 FINAL [facility] STATUS: Home (Routine DC) PAYOR: [facility] DESCRIPTION 5373 Level 3 Urology and Related Services ADMIT DX: REASON FOR VISIT DX: R35.0 Frequency of micturition FINAL DX: PRINCIPAL: R35.0 Frequency of micturition SECONDARY: R39.15 Urgency of urination Z87.440 Personal history of urinary (tract) infections F41.1 Generalized anxiety disorder Z87.442 Personal history of urinary calculi [facility] STAT DESCRIPTION DOCTOR NAME DATE NOTE: The code number assigned matches the documented diagnosis and / or procedure in the patient's chart. However, the narrative phrase printed from the coding software may appear abbreviated, or result in slightly different terminology. Coded By: So Valle Date Saved: 07/31/2020 12:[address] [facility] Consent for Procedure/Surger yon 07-30-2020 Consent for Procedure/Surgery [id number]# 1.00CD:[address] [facility] Consent for Treatmenton 07-11 Consent for Treatment [id number]#1 .00CD:[address] [facility] Discharge Instructionson Discharge Instructions [id number]# 1.00CD:[address] [facility] History and Physicalon 07-30 History and Physical [id number]# 1.00CD:[address] [facility] IntraOperative Documentson 0 07-30-2020 IntraOperative Documents [id number]# 1.00CD:[address] [facility] Main OR Intraoperative Recor amos 07-30-2020 Main OR Intraoperative Record IntraOp Document Type FTURO Summary Primary Physician: Facundo Fam Jr., MD Finalized Date/Time: 07/30/20 13:50:41 Pt. Name: YURI GALLAGHER /Sex: 1970 Female Med Rec #: [id number] Physician: Facundo Fam Jr., MD Financial #: [id number] Pt. Type: O Room/Bed: / Admit/Disch: 07/30/20 [...] Steven CST Role Performed Surgeon - Primary Dial Screw Assembler - Primary Scrub - Primary Time In [...] Macias RN, Lou Ann 07/30/20 13:50 Normal [facility] Main OR Preoperative Recordo n 07-30-2020 Main OR Preoperative Record Holding Area Document Type FTURO Summary Primary Physician: Facundo Fam Jr., MD Finalized Date/Time: 07/30/20 13:41:28 Pt. Name: YURI GALLAGHER /Sex: 1970 Female Med Rec #: [id number] Physician: Facundo Fam Jr., MD Financial #: [id number] Pt. Type: O Room/Bed: / Admit/Disch: 07/30/20 [...] Macias RN, Lou Ann 07/30/20 13:41 Normal [facility] Operative Reporton 1 Operative Report Patient: YURI [...] urine. The Urethra was dilated to: 28 Hungarian w/ sounds. Devices Implanted: None. Removal: Cystoscope is removed, The patient tolerated it well. Postoperative Information Discharge: Patient is discharged home with antibiotic coverage, Follow up arranged. Normal [facility] Comment on above: Result Comment: Elec [...] have a fever over 100 degrees Normal [facility] Ambulatory Clinical Summaryo n 07-21-2020 Ambulatory Clinical Summary {[id number] -[id number]}CD:[id number] Normal [facility] Ambulatory Clinical Summary {[id number] -[id number]}CD:[id number] Li Puckett [facility] Patient Educationon 07-21-19 Patient Education Urinary [...] Document Reviewed: 08/03/2012 ExitCare? Patient Information ?2013 [employer]. [facility] Urology Office/Clinic Noteon 07-21-2020 Urology Office/Clinic Note [...] Will order Local anesthesia. ABX sent to [facility] in [place]. Ordered: Urology Procedure Order US Renal 2. [...] day(s), # 2 tab(s), Refills(s) 0, Pharmacy: [facility]/pharmacy #[id number], 162, cm, 07/21/20 13:48:00 EST, Height/Length Dosing, 68.5, kg, 07/21/20 13:48:00 EST, Weight Dosing Urnls Dip Stick Auto w/o Microscopy POC 18173 I have reviewed the previous health record information and history for this pt. from Dr. Fam. Follow-up With When Contact Information Sarwat Yadav MD, Facundo [address] Additional Instructions: Patient Education Urinary Tract [...] Protein Urine Dipstick: Negative (07/21/20 13:39:00) Specific [place] Urine Dipstick: 1.020 (07/21/20 13:39:00) Urine Appearance [...] is been treated with Bactrim DS. Normal [facility] Comment on above: Result Comment: Elec tronically Signed By: Sarwat Yadav MD, Facundo Felix\.br\Date and Time Signed: 07/21/20 14:42 EST\.br\Electronically Co-Signed By: Lety Marino MA\.br\Date and Time Co-Signed: 07/21/20 14:31 EST Vital Signs Date Time Vital Sign Value Performing Clinician Faci lity 04-10-2024 13:24-0400 Body height 160 cm Kyle Zhu MD Work Phone: [facility] 04-10-2024 13:24-0400 Body mass index (BMI) [Ratio] 23.74 kg/m2 Kyle Zhu MD Work Phone: [facility] 04-10-2024 13:24-0400 Body temperature 98.2 [degF] Kyle Zhu MD Work Phone: [facility] 04-10-2024 13:24-0400 Body weight 60.78 kg Kyle Zhu MD Work Phone: [facility] 04-10-2024 13:24-0400 Diastolic blood pressure 80 mm[Hg] Kyle Zhu MD Work Phone: [facility] 04-10-2024 13:24-0400 Heart rate 77 /min Kyle Zhu MD Work Phone: [facility] 04-10-2024 13:24-0400 SaO2% (BldA) [Mass fraction] 97 % Kyle Zhu MD Work Phone: [facility] 04-10-2024 13:24-0400 Systolic blood pressure 120 mm[Hg] Kyle Zhu MD Work Phone: [facility] 04-02-2024 10:11-0400 Body height 160.02 cm DAGMAR Feng Work Phone: [facility] 04-02-2024 09:07-0400 Body height 160.02 cm [facility] 04-02-2024 09:07-0400 Body mass index (BMI) [Ratio] 25 kg/m2 [facility] 04-02-2024 09:07-0400 Body temperature 97.4 [degF] [facility] 04-02-2024 09:07-0400 Body weight 64.01 kg [facility] 04-02-2024 09:07-0400 Diastolic blood pressure 80 mm[Hg] [facility] 04-02-2024 09:07-0400 Systolic blood pressure 124 mm[Hg] [facility] 03-21-2024 08:26-0400 Body height 160.02 cm [facility] 03-21-2024 08:26-0400 Body mass index (BMI) [Ratio] 24.6 kg/m2 [facility] 03-21-2024 08:26-0400 Body weight 63.04 kg [facility] 03-21-2024 08:26-0400 Diastolic blood pressure 70 mm[Hg] [facility] 03-21-2024 08:26-0400 Heart rate 73 /min [facility] 03-21-2024 08:26-0400 Respiratory rate 18 /min [facility] 03-21-2024 08:26-0400 SaO2% (BldA) [Mass fraction] 99 % [facility] 03-21-2024 08:26-0400 Systolic blood pressure 118 mm[Hg] [facility] 02-26-2024 13:28-0400 Body height 160.02 cm [facility] 02-26-2024 13:28-0400 Body mass index (BMI) [Ratio] 25.1 kg/m2 [facility] 02-26-2024 13:28-0400 Body weight 64.41 kg [facility] 02-26-2024 13:28-0400 Diastolic blood pressure 70 mm[Hg] [facility] 02-26-2024 13:28-0400 Heart rate 80 /min [facility] 02-26-2024 13:28-0400 SaO2% (BldA) [Mass fraction] 98 % [facility] 02-26-2024 13:28-0400 Systolic blood pressure 130 mm[Hg] [facility] 02-19-2024 15:29-0400 Body height 160.02 cm [facility] 02-19-2024 15:29-0400 Body mass index (BMI) [Ratio] 25.3 kg/m2 [facility] 02-19-2024 15:29-0400 Body weight 64.86 kg [facility] 02-19-2024 15:29-0400 Diastolic blood pressure 80 mm[Hg] [facility] 02-19-2024 15:29-0400 Heart rate 87 /min [facility] 02-19-2024 15:29-0400 SaO2% (BldA) [Mass fraction] 98 % [facility] 02-19-2024 15:29-0400 Systolic blood pressure 136 mm[Hg] [facility] 10-12-2023 08:26-0400 Body height 160.02 cm [facility] 10-12-2023 08:26-0400 Body mass index (BMI) [Ratio] 25.1 kg/m2 [facility] 10-12-2023 08:26-0400 Body weight 64.41 kg [facility] 10-12-2023 08:26-0400 Diastolic blood pressure 78 mm[Hg] [facility] 10-12-2023 08:26-0400 Heart rate 78 /min [facility] 10-12-2023 08:26-0400 SaO2% (BldA) [Mass fraction] 98 % [facility] 10-12-2023 08:26-0400 Systolic blood pressure 112 mm[Hg] [facility] 09-14-2023 09:36-0500 Body height 160.02 cm [facility] 09-14-2023 09:36-0500 Body mass index (BMI) [Ratio] 24.6 kg/m2 [facility] 09-14-2023 09:36-0500 Body weight 63.04 kg [facility] 09-14-2023 09:36-0500 Diastolic blood pressure 82 mm[Hg] [facility] 09-14-2023 09:36-0500 Heart rate 88 /min [facility] 09-14-2023 09:36-0500 SaO2% (BldA) [Mass fraction] 98 % [facility] 09-14-2023 09:36-0500 Systolic blood pressure 118 mm[Hg] [facility] 06-21-2023 07:56-0500 Body height 160 cm Marsha Landa APRN.CNP Work Phone: [facility] 06-21-2023 07:56-0500 Body weight 63.96 kg Marsha Chaconkaleb EPPERSON Work Phone: [facility] 03-20-2023 08:57-0400 Body height 160 cm JAM Melgar MD Work Phone: [facility] 03-20-2023 08:57-0400 Body weight 61.24 kg NA Ramón AGUIRRE Work Phone: [facility] Encounters Encounter Date Encounter Type Care Provider Facility Start: 04-10-2024 End: 04-10-2024 Patient encounter procedure Kyle Zhu MD Work Phone: Gastroenterology Comment on above: Abdominal pain, unsp ecified abdominal location (Primary Dx) Start: 04-10-2024 End: 04-10-2024 ambulatory KYLE ZHU Facility:[facility] Start: 04-08-2024 End: 04-08-2024 ambulatory [facility] Start: 04-02-2024 End: 04-02-2024 ambulatory BLANKA AGUIRRE Not Available Start: 04-02-2024 End: 04-02-2024 Patient encounter procedure [facility] Work Phone: Start: 04-02-2024 End: 04-02-2024 ambulatory Genevieve Feng [facility] Work Phone: Start: 04-02-2024 End: 04-02-2024 Departed Referred DAGMAR Feng Work Phone: [facility] [place] Work Phone: Start: 03-22-2024 End: 03-22-2024 ambulatory BLANKA AGUIRRE Not Available Start: 03-21-2024 End: 03-21-2024 ambulatory [facility] Work Phone: Start: 03-21-2024 End: 03-21-2024 Patient encounter procedure [facility] Work Phone: Start: 03-18-2024 End: 03-18-2024 ambulatory [facility] Start: 03-18-2024 End: 03-18-2024 ambulatory [facility] Start: 03-13-2024 Non-patient / Non-visit [facility] Work Phone: Start: 03-12-2024 End: 03-12-2024 ambulatory LINDA MUÑOZ Not Available Start: 03-05-2024 End: 03-05-2024 ambulatory LINDA MUÑOZ Not Available Start: 03-04-2024 Non-patient / Non-visit [facility] Work Phone: Start: 03-04-2024 End: 03-04-2024 ambulatory [facility] Start: 02-26-2024 End: 02-26-2024 ambulatory [facility] Work Phone: Start: 02-26-2024 End: 02-26-2024 Patient encounter procedure [facility] Work Phone: Start: 02-19-2024 End: 02-19-2024 ambulatory [facility] Work Phone: Start: 02-19-2024 End: 02-19-2024 Patient encounter procedure [facility] Work Phone: Start: 10-26-2023 End: 10-26-2023 ambulatory BETHANY URBANOCECI Not Available Start: 10-12-2023 Patient encounter status [facility] Start: 10-12-2023 End: 10-12-2023 ambulatory [facility] Work Phone: Start: 10-12-2023 End: 10-12-2023 Encounter for general adult medical examination without abnormal findings [facility] Start: 10-12-2023 End: 10-12-2023 Patient encounter procedure [facility] Work Phone: Start: 09-14-2023 End: 09-14-2023 Patient encounter procedure [facility] Work Phone: Start: 06-21-2023 End: 06-21-2023 ambulatory MARSHA LANDA Facility:[facility] Start: 06-21-2023 End: 06-21-2023 Patient encounter procedure Marsha Landa CUSTOMER SERVICE CONSULTANT.CRIME LAB TECHNICIAN Work Phone: [facility] Comment on above: Right leg pain (Prim antonietta Dx); Numbness and tingling of right lower extremity; Piriformis syndrome, right Start: 06-12-2023 End: 06-12-2023 ambulatory LINDA TONI Not Available Start: 03-23-2023 End: 03-23-2023 ambulatory MD Agustin Mortensen Work Phone: [facility] Work Phone: Start: 03-23-2023 End: 03-23-2023 Patient encounter procedure MD Agustin Mortensen Work Phone: [facility] [address] Work Phone: Start: [...] Start: 01-30-2026 Diabetes Screening Diabetes Screenin g [facility] Start: 06-23-2024 Screening for malign ant neoplasm of colon [facility] Start: 06-12-2024 Screening for malign ant neoplasm of breast Mammogram Screening [facility] Start: 04-25-2024 End: 04-25-2024 Patient encounter procedure Radiology Ct Scan Comment on above: CT ENTEROGRAPHY W IV CON Start: 04-10-2024 End: 07-10-2024 25-hydroxyvitamin D3 [Mass/volume] in Serum or Plasma [facility] Comment on above: Expected: 04/10/2024 , Expires: 07/10/2024 Start: 04-10-2024 End: 07-10-2024 C reactive protein [Mass/volume] in Serum or Plasma [facility] Comment on above: Expected: 04/10/2024 , Expires: 07/10/2024 Start: 04-10-2024 End: 07-10-2024 Comprehensive metabolic 2000 panel - Serum or Plasma [facility] Work Phone: Comment on above: Expected: 04/10/2024 , Expires: 07/10/2024 Start: 04-02-2024 Bacteria identified in Urine by Culture [facility] Start: 03-10-2024 Covid-19 Vaccine ( season) Covid-19 Vaccine ( season) [facility] Start: 03-10-2024 Influenza vaccination Influenza Vacc ine (#1) [facility] Start: 04-25-2023 Shingrix Vaccine (2 of 2) Shingrix Vaccine (2 of 2) [facility] Start: 03-10-2023 Influenza vaccination C [facility] Start: 07-10-2022 DEPRESSION ASSESSMENT DEPRESSION ASS ESSMENT [facility] Start: 2020 SHINGRIX VACCINE (1 of 2) SHINGRIX VACCINE (1 of 2) [facility] Start: 12-07-2015 COLOGUARD (FIT-DNA) COLOGUARD (FIT-D NA) [facility] Start: 12-07-2015 Colonoscopy COLONOSCOPY [facility] Start: 12-07-2015 COLORECTAL CANCER SCREENING COLORECTAL CANCER SCREENING [facility] Start: 12-07-[address] COLONOGRAPHY [facility] Start: 12-07-2015 DIABETES SCREEN DIABETES SCREEN [facility] Start: 12-07-2015 Diabetes Screening Diabetes Screenin g [facility] Start: 12-07-2015 FECAL OCCULT BLOOD FECAL OCCULT BLOO D [facility] Start: 12-07-2015 Lipid panel Lipid Screening [facility] Start: 12-07-2015 LIPID SCREEN LIPID SCREEN [facility] Start: 12-07-2015 Screening for malign ant neoplasm of colon [facility] Start: 12-07-2015 SIGMOIDOSCOPY [facility]OSCOPY [facility] Start: 2010 Mammography MAMMOGRAM [facility] Start: 2000 HPV TESTING HPV TESTING [facility] Start: 2000 Screening for malign ant neoplasm of cervix HPV Testing [facility] Start: 12-07-1991 PAP TESTING PAP TESTING [facility] Start: 12-07-1991 Screening for malign ant neoplasm of cervix [facility] Start: 1989 Hepatitis B Vaccine (1 of 3 - 19+ 3-dose series) Hepatitis B Vaccine (1 of 3 - 19+ 3-dose series) [facility] Start: 1989 Urine microalbumin profile [facility] Start: 1988 Anxiety Screening Anxiety Screening [facility] Start: 1988 Depression Screening Depression Scre ening [facility] Start: 1988 HEPATITIS C SCREENING HEPATITIS C [facility] Start: 1988 Hepatitis C screening Hepatitis C Sc [facility] Start: 1988 HIV SCREENING HIV SCREENING [facility] Start: 1988 HIV screening HIV Screening [facility] Start: 06-08-1971 COVID-19 VACCINE (#1) COVID-19 VACCI NE (#1) [facility] Start: 1970 HEPATITIS B (1 of 3 - 3-dose series) HEPATITIS B (1 of 3 - 3-dose series) [facility] Start: 1970 Hepatitis B Vaccine (1 of 3 - 3-dose series) Hepatitis B Vaccine (1 of 3 - 3-dose series) [facility] Cardiovascular stres s testing [facility] Comprehensive metabo lic 2000 panel - Serum or Plasma [facility] End: 05-10-2025 CT Small bowel W contrast PO and W contrast IV CT ENTEROGRAPHY W IVCON Radiology Routine Abdominal pain, unspecified abdominal location 1 Occurrences starting 04/10/2024 until 05/10/2025 [facility] Comment on above: 1 Occurrences starti ng 04/10/2024 until 05/10/2025 Holter monitor study [facility] US Abdomen limited [facility] US Pelvis [facility] Immunizations Immunization Date Immunization Notes Care Provider Fa ritaty 02-28-2023 zoster vaccine recombinant [facility] 11-03-2020 COVID-19 Ad26.COV2.S (Anabell) [facility] Payers Date Payer Category Payer Self-pay [id number] 2023 Unknown [id number] 2023 Unknown [id number] 2022 Unknown MMO MMO [employer] PPO [id number] 2022-Present [phone] [address] [place] [address] PPO [id number] 1970 Unknown [id number] 1970 Unknown [id number] 1970 Unknown [id number] 1970 Unknown [id number] 1970 Unknown [id number] 1970 Unknown [id number] 1970 Unknown [id number] 1970 Unknown [id number] 1959 Unknown [id number] 1959 Unknown [id number] Unknown [id number] Social History Date Type Detail Facility Tobacco smoking stat us NHIS Tobacco smoking consumption unknown [facility] Start: 03-14-2023 End: 06-19-2023 History of Social function [facility] Start: 03-14-2023 End: 06-19-2023 Area Deprivation Index [facility] National Score (1-10 0), lower number is lower risk 61 [facility] Start: 1970 Sex Assigned At Not on file C [facility] Start: 1970 Sex Assigned At Female F [facility] Start: 10-12-2023 End: 04-10-2024 Tobacco smoking status NHIS Never smoked tobacco (finding) [facility] Start: 04-10-2024 Tobacco use and exposure Smoke less tobacco non-user [facility] Start: 04-10-2024 Alcoholic beverage intake Ex-drinker (finding) [facility] Clinical Notes 01-06-2015 to 04-10-2024 Kyle Zhu MD - 04/10/2024 1:36 PM Marsha Goldman, CUSTOMER SERVICE CONSULTANT.[facility] - 06/21/2023 8:00 AM Oscar Alamo MD - 03/20/2023 8:56 AM EDT Note Date & Type Note Facility 04-10-2024 Note HNO ID: [id number] Author: KYLE ZHU MD Service: ? Author [...] Kyle Zhu MD Date: April 10, 2024 [facility] 04-10-2024 History of Present illness Narrative [...] April 10, 2024 documented in this encounter [facility] 03-18-2024 Note Patient: Socorro Felix And rews Procedure Information Date/Time: 03/18/24 1030 Procedure: Coronary angiography (Left) - PC APPROVED w possible PCI Location: [facility] FINANCIAL [facility]AM[facility]ER 3 / [facility] (Cath) Providers: Seda Loza MD [...] with attending and fellow. Additional Equipment Requests [facility] 03-04-2024 Note case [facility] 03-04-2024 Note Cardiology Clinic No te [...] to contact cardiolog (more content not included)... [facility] 06-21-2023 History of Present illness [...] under the care of pain management in [facility] where she recently underwent a right gluteal nerve block without improvement in symptoms. She states that at postinjection follow-up she was offered a piriformis injection but is reluctant to proceed. She reports that she recently had an EMG completed. EMG results were not available at time of today's appointment. 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 Nonsmoker Pain localized to right buttocks Pain [...] prednisone Physical Therapy: Spring 2022 attended at [facility] , she states sessions were not effective [...] Normal Limits Logroll: Negative Tinel's test: Negative Highland's test: Negative Prone extension Negative Neuro Tests: [...] TIME: 7:51 AM documented in this encounter [facility] 06-21-2023 Note HNO ID: [id number] Author: Marsha Landa APRN.CNP Service: ? Author [...] under the care of pain management in [facility] where she recently underwent a right gluteal nerve block without improvement in symptoms. She states that at postinjection follow-up she was offered a piriformis injection but is reluctant to proceed. She reports that she recently had an EMG completed. EMG results were not available at time of today's appointment. 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 [facility] 03-20-2023 History of Present illness Narrative [...] Oscar Melgar MD documented in this encounter [facility] 10-20-2022 Note CONSULTATION CONSULTATION DATE: 10/20/2022 [...] our patients to inform us about any [id number]-[id number] medications or herbal remedies/nutritional supplements/alternative remedies. 2. [...] options with their primary care provider. [facility] 10-11-2022 Note PROCEDURE: XR ANKLE RT MIN [...] by: CHRISTINA ROBLERO Date: 2022-10-11 11:33 [facility] 10-11-2022 Note PROCEDURE: XR ANKLE RT MIN [...] authenticated by: CHRISTINA ROBLERO Date: 2022-10-11 11:33 [facility] 01-06-2015 Evaluation note Diagnosis Onset Date Anxiety January 06, 2015 acute Anxiety January 06, 2015 acute Palpitations acute Screening for lipid disorders acute Screening for metabolic disorder acute Screening, deficiency anemia , iron acute Wellness examination acute [facility] Work Phone: Evaluation note* Diagnosis Encounter for cosmetic surgery- Primary Other plastic surgery for unacceptable cosmetic appearance [facility]* Diagnosis Right leg pain- Primary Pain in limb Numbness and tingling of right lower extremity Piriformis syndrome, right [facility] Diagnosis Onset Date Resolution Status Chest tightness acute Dizziness acute Family history of heart dise ase in male family member before age 55 acute Palpitations acute [facility] Work Phone: Evaluation note* Diagnosis Onset Date Resolution Status Chest tightness acute Dizziness acute Family history of heart dise ase in male family member before age 55 acute Palpitations acute Abdominal pain acute Bloating acute [facility] Work Phone: Evaluation note* Diagnosis Onset Date Resolution Status Chest tightness acute Dizziness acute Family history of heart dise ase in male family member before age 55 acute Palpitations acute Abdominal pain acute Bloating acute Anxiety January 06, 2015 acute Chest wall pain acute Myocardial bridge acute UTI (urinary tract infection) acute [facility] Work Phone: Evaluation note* Diagnosis Abdominal pain, unspecified abdominal location- Primary documented in this encounter [facility] Summary Purpose Family History No Family [...] ABD & PELVIS W/CONTRAST Kyle Zhu MD [address] [place] [address] Ct [facility] [place] [id number] Referral ID Status Reason Start Date Expiration Date Visits Requested Visits Authorized [id number] Authorized Auto-Generat ed Referral 04/10/2024 05/10/2025 1 1 Additional Source Comments INFORMATION SOURCE (unrecogn ized section and content) DATE CREATED AUTHOR 09/08/2020 [facility] DATE CREATED AUTHOR AUTHOR'S ORGANIZ ATION 10/27/2022 [facility] DATE CREATED AUTHOR AUTHOR'S ORGANIZ ATION 04/06/2024 [facility] DATE CREATED AUTHOR AUTHOR'S ORGANIZ ATION 04/06/2024 [facility] EPIC DATE CREATED AUTHOR AUTHOR'S ORGANIZ ATION 04/09/2024 [facility] DATE CREATED AUTHOR AUTHOR'S ORGANIZ ATION 04/15/2024 [facility] Source Comments (unrecognize d section and content) In the event this informatio n is protected by the Federal Confidentiality of Alcohol and Drug Abuse Patient Records regulations: The Federal rules restrict any use of the information to criminally investigate or prosecute any alcohol or drug abuse patient.[facility] the event this information is protected by the Federal Confidentiality of Alcohol and Drug Abuse Patient Records regulations: The Federal rules restrict any use of the information to criminally investigate or prosecute any alcohol or drug abuse patient.[facility] the event this information is protected by the Federal Confidentiality of Alcohol and Drug Abuse Patient Records regulations: The Federal rules restrict any use of the information to criminally investigate or prosecute any alcohol or drug abuse patient.[facility] the event this information is protected by the Federal Confidentiality of Alcohol and Drug Abuse Patient Records regulations: The Federal rules restrict any use of the information to criminally investigate or prosecute any alcohol or drug abuse patient.[facility] Reason for Visit (unrecogniz ed section [...] Member Role Status Dates Genevieve Rohrbacher , CUSTOMER SERVICE CONSULTANT MUD TEMPERER-C Primary Care Provider, Attending Provider Active Start: February 26, 2024 End: February 26, 2024 Team Status: Active Member Role Status Dates Genevieve Feng APRN MUD TEMPERER-C Primary Care Provider Active Start: March 132023 Seda Loza MD Attending Provider Active Start: March 13, 2024 Team Status: Inactive Member Role Status Dates Genevieve Feng APRN MUD TEMPERER-C Primary Care Provider, Attending Provider Active Start: March 21, 2024 End: March 21, 2024 Team Status: Active Member Role Status Dates Genevieve Feng APRN MUD TEMPERER-C Primary Care Provider Active Start: March 04, 2024 Sandeep Mcclelland DO Attending Provider Active Sta rt: March 04, 2024 Team Status: Inactive Member Role Status Dates Genevieve Feng APRN MUD TEMPERER-C Primary Care Provider, Attending Provider Active Start: April 02, 2024 End: April 02, 2024 Team Status: Inactive Member Role Status Dates Genevieve Feng APRN MUD TEMPERER-C Attending Provider Act star Start: April 02, [...] BE BASED ON THE PRIMARY CLINICAL RECORDS. [employer] [facility]. provides no warranty or guarantee of the accuracy or [phone] information in [phone] [id number]
== END 2024-04-23 11:41 | disposition home or self-care (01) ==
LOC: PM 11:40
PROVIDERS: PCP Nurse Practitioner Family; Visit Provider Nurse Practitioner
DX: R20.8 Other disturbances of skin sensation (principal); R20.3 Hyperesthesia; M54.14 Radiculopathy, thoracic region
CPT/HCPCS: G0463

== ENCOUNTER 2024-05-13 22:02 | Outpatient (REF) | payer OTHER, SELFPAY ==
--- OUTSIDE RECORDS SUMMARY | 2024-05-13 22:06 | XMS_ITS | CCD ---
Author Organization [facility] Care Team Providers Care Housekeeping Manager Name Role Phone DR AGUSTIN MORTENSEN Primary Care Unavailable LAKSHMIPATHY ., NARENDRANATH Admitting Mariella vailable LAKSHMIPATHY ., NARENDRANATH Consulting Mariella vailable LAKSHMISHMIPATHY ., NARWILLAMATH Attending Mariella brookilable LORRI BERRY Admitting Unavailable LORRI BERRY Attending Unavailable DR CHRISTINA ROBLERO Consulting Unavailable DR AGUSTIN MORTENSEN Primary Care Unavailable LORRI BRERY Consulting Unavailable Unavailable Primary Care Provider UnavailMD Agustin Ramirez Primary Care Provider MD Jose Guadalupe Costa Attending Provider Unavailable DAGMAR Feng Attending Provider BETHANY CHANG Attending Unavailable TONI, LINDA Referring Unavailable TONI, LINDA Attending Unavailable TONI, LINDA Referring Unavailable PETBLANKA WASHINGTON Attending Unavailable BLANKA AGUIRRE Referring Unavailable ALGHOTHANI, MOHAMAD Admitting Unavailable ALGHOTHANI, MOHAMAD Attending Unavailable ALGHOTHANI, MOHAMAD Referring Unavailable ALGHOTHANI, MOHAMAD Attending Unavailable ALGHOTHANI, MOHAMAD Attending Unavailable Unavailable Primary Care Provider UnavailMARSHA Souza Attending Unavailable LASHNER, KYLE A Referring Unavailable LASHNER, KYLE A Referring Unavailable LASHNER, KYLE A Referring Unavailable AUDRA, KYLE A Attending Unavailable NO FAMILY, PHYSICIAN Primary Care Provider Unava ilable DAGMAR Feng Primary Care Provider MD Jose Guadalupe Costa Attending Provider Unavailable DO Lady Vásquez Attending Provider [phone] Genevieve Feng Primary Care Unavailable Lady Vásquez Attending Unavailable Lady Vásquez Admitting Unavailable Genevieve Feng Primary Care Unavailable Jose Guadalupe Costa Attending Jose Guadalupe Velasquez Admitting Genevieve Peter Admitting Unavailable NO FAMILY, PHYSICIAN Primary Care Unavailable Genevieve Feng Attending Unavailable Agustin Mortensen MD Primary Care Provider Medications Current Medications Medication Drug Class(es) Dates Sig (Normalized) Sig (Original) aspirin 81 mg delayed release oral tablet (14 sources) Platelet Aggregation Inhibitor, Nonsteroidal Anti-inflammatory Drug Start: 03-21-2024 aspirin 81 MG EC tablet Daily 03/21/2024 Active baclofen 5 mg oral tablet (19 sources) gamma-Aminobutyric Acid-ergic Agonist Start: 05-01-2024 take 5 mg by mouth three times daily Baclofen Active 5 MG PO Three times daily May 01, 2024 12:00am Start: 09-14-2023 End: 10-12-2023 take 10 mg by mouth once daily Baclofen Discontinued 1 0 MG PO Daily September 14, 2023 1:00am October 12, 2023 8:30am Start: 03-07-2023 take 0.5 tablet by m outh three times daily baclofen 10 mg tablet TAKE 1/2 TABLET BY MOUTH 3 TIMES A DAY 03/07/2023 Active Comment on above: TAKE 1/2 TABLET BY M OUTH 3 TIMES A DAY busPIRone (20 sources) Start: 05-01-2024 Buspirone Acti ve 0 .ROUTE .COMPLEX 180 May 01, 2024 2:31pm TAKE 1 TABLET TWICE DAILY Start: 09-14-2023 End: 05-01-2024 busPIRone (Buspar) 5 MG tabl et Take by mouth twice a day 10/11/2023 Active enteric contrast (will be provided [...] 04/11/2024 Active estradiol 0.5 mg oral tablet (13 sources) Estrogen Start: 09-14-2023 End: 09-27-2024 take 1 tablet by mouth once daily estradiol (Estrace) 0.5 MG tablet Indications: Vaginal dryness Take 1 tablet (0.5 mg) by mouth Daily 90 tablet 3 09/28/2023 09/27/2024 Active iv contrast (will be provided with radiology [...] 04/11/2024 Active LORazepam 0.5 mg oral tablet (19 sources) Benzodiazepine Start: 01-30-2023 take 1 tablet by mouth once daily Lorazepam (Ativan) 0.5 mg tablet Active 0.5 MG PO Daily September 14, 2023 1:00am take 1 tablet by alexei th every six hours as needed LORazepam (Ativan) 0.5 MG tablet Take 0. 5 mg by mouth every 6 (six) hours if needed Active Comment on above: Take 0.5 mg by mouth . 24 hr metoprolol succinate 25 mg extended release oral tablet (3 sources) beta-Adrenergic Jose Start: 03-18-20 End: 05-13-20 take 1 tablet by mouth every twenty-four hours in the morning metoprolol succinate XL (Toprol-XL) 25 MG 24 hr tablet Take 25 mg by mouth in the morning. 03/18/2024 05/13/2024 Discontinued (Other) pantoprazole 40 mg delayed release oral tablet (9 sources) Proton Pump Inhibitor Start: 04-24-20 End: 10-22-19 take 1 tablet by mouth before mealtime pantoprazole (ProtoNix) 40 MG EC tablet Indications: Gastroesophageal reflux disease, unspecified whether esophagitis present Take 1 tablet (40 mg) by mouth in the morning. Take before meals. 90 tablet 1 04/24/2024 10/21/2024 Active Start: 03-22-2024 End: 04-21-[address] (PROTONIX) 4 0 mg tablet Take 40 mg by mouth. 03/22/2024 Active predniSONE 50 mg oral tablet (1 source) Start: 03-16-2023 End: 03-21-2023 predniSONE (DELTASONE) 50 mg Take 50 mg by mouth. 0 03/16/2023 03/21/2023 Active Comment on above: Take 50 mg by mouth. rosuvastatin calcium 20 mg oral tablet (3 sources) HMG-CoA Reductase Inhibitor Start: 03-18-2024 End: 05-13-2024 take 1 tablet by mouth in the morning rosuvastatin (Crestor) 20 MG tablet Take 20 mg by mouth in the morning. 03/18/2024 05/13/2024 Discontinued (Other) tretinoin 0.5 mg/ml topical lotion (3 sources) Retinoid Start: 10-26-2023 Tretinoin (Alt can) 0.05 % lotion Indications: Rhytides Apply thin layer to face at bedtime 45 g 11 10/26/2023 Active Completed/Discontinued Medications Medication Drug Class(es) Dates Sig (Normalized) Sig (Original) fluconazole 150 mg oral tablet (3 sources) Azole Antifungal Start: 04-05-2024 End: 05-01-2024 Fluconazole Discontinued 150 MG PO Daily 5 April 05, 2024 12:00am May 01, 2024 9:03am Take 1st dose at onset of symptoms then repeat in 3 days if continued symptoms phenazopyridine hydrochloride 200 mg oral tablet (6 sources) Start: 04-02-2024 End: 05-01-2024 take 1 tablet by mouth three times daily Phenazopyridine (Pyridium) 200 mg tablet Discontinued 200 MG PO Three times daily April 02, 2024 12:00am May 01, 2024 9:04am sulfamethoxazole 800 mg / trimethoprim 160 mg oral tablet (6 sources) Dihydrofolate Reductase Inhibitor Antibacterial, Sulfonamide Antimicrobial Start: 04-02-2024 End: 05-01-2024 take 1 tablet by mouth twice daily Sulfamethoxazole-Tr imethoprim (Bactrim Ds) 800-160 mg tablet Discontinued 1 TAB PO Twice daily 14 7 April 02, 2024 12:00am May 01, 2024 9:04am Problems Problem Classification Problem Date Documented Da te Episodic/Chronic Abdominal pain (20 sources) Abdominal pain; Translations: [Unspecified abdominal pain] Onset: 04-25-2024 02-26-2024 Episodic Anxiety disorders (18 sources) Anxiety; Translations: [Anxiety disorder, unspecified] Onset: 01-06-2015 09-14-2023 Chronic Cardiac and circulatory congenital anomalies (12 sources) Myocardial bridge of coronary artery; 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] 03-21-2024 Chronic Cardiac dysrhythmias (20 sources) Palpitations; Translations: [Palpitations] 10-12-2023 Episodic Complications of surgical procedures or medical care (2 sources) Postsurgical menopause; 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] 05-13-2024 Chronic Conditions associated with dizziness or vertigo (18 sources) Dizziness; Translations: [Dizziness and giddiness] 02-19-2024 Episodic Mycoses (3 sources) Candidiasis of mouth; Translations: [Candidal stomatitis] 04-05-2024 Episodic Nonspecific chest pain (20 sources) Tight chest; Translations: [Other chest pain] Onset: 03-04-2024 02-19-2024 Episodic Other connective tissue disease (3 sources) Pain in right leg; Translations: [PAIN IN RIGHT LEG] Onset: 10-20-2022 Episodic Other connective tissue disease (1 source) Pain in right lower limb; Translations: [Pain in right leg] 06-21-2023 Episodic Other gastrointestinal disorders (8 sources) Abdominal bloating; Translations: [Abdominal distension (gaseous)] 02-26-2024 Episodic Other gastrointestinal disorders (8 sources) Abdominal distension (gaseous); Translations: [Flatulence, eructation, [...] conditions (not mental disorders or infectious disease) (14 sources) Encounter for screening for lipoid disorders; Translations: [Screening for lipoid disorders] Onset: 03-04-2024 10-12-2023 Episodic Residual codes; unclassified (20 sources) Patient encounter status; Translations: [Encounter for cosmetic surgery] 03-20-2023 Episodic Residual codes; unclassified (9 sources) Family history of cardiovascular disease in first degree male relative less than 55 years of age; Translations: [Family history of ischemic heart disease and other diseases of the circulatory system] 02-19-2024 Episodic Residual codes; unclassified (9 sources) Family history of ischemic heart disease and other diseases of the circulatory system; Translations: [Family history of other cardiovascular diseases] 02-19-2024 Episodic Spondylosis; intervertebral disc disorders; other back problems (2 sources) Radiculopathy, lumbar region; Translations: [Radiculopathy, thoracic region] Onset: 10-26-2022 Episodic Urinary tract infections (13 sources) Urinary tract infectious disease; Translations: [Urinary tract infection, site not specified] Onset: 04-02-2024 04-02-2024 Episodic Results Test Name Value Interpretation Reference Range Facility Pathology Request for Lab Co rpon 05-02-2024 Pathology Request for Lab [place] Normal [facility] Comment on above: Order Comment: PATHO LOGY GI SPECIMEN Result Comment: See report. Scanned copy available in EMR. PERFORMED BY: [place] [address] PATHOLOGIST PROGRAM SERVICES ASSISTANT ANUSHA ROMO M.D. Performed By: #### P ATH TO [facility] #### [place] [id number] [facility] XR pre/post mri xrayon 05-02 XR pre/post mri xray [facility] Main [place] [address] [place] [address] MRI Report Signed Patient: Yuri Gallagher MR#: [id number] : 1970 Acct:[id number] Age/Sex: 53 / F ADM Date: 05/02/24 [facility] Room: Type: REG CLI Attending Dr: Jose Guadalupe Costa MD Copies to: Jose Guadalupe Costa Ordering Provider: Jose Guadalupe Costa Date of Service: 05/02/24 MR/MR thoracic spine wo con: THORACIC NEURITIS ([id number]) XR/XR pre/post mri xray: THORACIC NEURITIS MR thoracic spine wo con, XR pre/post mri xray 05/02/2024 8:34 AM SIGNS AND SYMPTOMS: Mid back pain radiating around ribs and under breasts PROTOCOL: Multiplanar multisequence MR images of the thoracic spine without contrast. Frontal and lateral radiographs of the thoracic spine. COMPARISON: None. FINDINGS: Radiographs of the thoracic spine: There is a slight dextro convex curvature. There is mild disc height loss at the mid thoracic spine. There is minimal anterior osteophyte formation. No fracture or subluxation. MRI thoracic spine: The bones of the thoracic spine are in anatomic alignment. There is preservation of vertebral body heights. The marrow signal is within normal limits. No epidural or paraspinous fluid collection is appreciated. The visualized paraspinous soft tissues are within normal limits. At T1-T2: There is a normal disc, central canal, and neural foramen. At T2-T3: There is a normal disc, central canal, and neural foramen. At T3-T4: There is a normal disc, central canal, and neural foramen. At T4-T5: There is a normal disc, central canal, and neural foramen. At T5-T6: There is a broad-based disc bulge. There is mild spinal canal narrowing. No significant neural foraminal narrowing. At T6-T7: There is a left central disc protrusion. There is mild spinal canal stenosis without neural foraminal narrowing. At T7-T8: There is a normal disc, central canal, and neural foramen. At T8-T9: There is a broad-based disc bulge with mild spinal canal narrowing. No significant neural foraminal narrowing. At T9-T10: There is a broad-based disc bulge without significant stenosis. At T10-T11: There is a normal disc, central canal, and neural foramen. At T11-T12: There is a normal disc, central canal, and neural foramen. At T12-L1: There is a normal disc, central canal, and neural foramen. MR/MR thoracic spine wo con IMPRESSION: No cord compression or cord signal abnormality. No fracture or subluxation. Mild degenerative changes are noted in the midthoracic spine as above. Impression dictated by: Austin Marsh M.D.05/02/2024 12:53 PM Dictation Location: [place] [address] Transcribed By: [facility] 05/02/24 1253 Dictated By: Austin Marsh II, MD 05/02/24 1241 Signed By: 05/02/24 1253 Normal [facility] CT ENTEROGRAPHY W IVCONon CT ENTEROGRAPHY W IVCON * * *Final Repor t* * * DATE OF EXAM: Apr 25 2024 2:22PM [facility] 0545 - CT ENTEROGRAPHY W IVCON / PROCEDURE REASON: Abdominal pain, unspecified abdominal location * * * * Physician Interpretation * * * * CT ENTEROGRAPHY (ABDOMEN AND PELVIS CT WITH INTRAVENOUS CONTRAST; NEUTRAL ORAL CONTRAST) HISTORY: Abdominal pain, unspecified abdominal location TECHNIQUE: Single phase CT enterography was performed CONTRAST: IV: 100 ml of Omnipaque 350 Oral: [address] RADIATION DOSE: Integrated Dose-length product (DLP) for this visit = 361 mGy*cm. COMPARISON: 03/23/2023 outside spine MRI RESULT: ... GI Tract: Small bowel: Normal caliber. No abnormal wall thickening or enhancement. Colon: Unremarkable. Strictures: None. Fistulae/Sinus tracts: None. Abscess: None. Ancillary findings: None Abdomen: Liver: No mass. Biliary: No biliary dilatation. Gallbladder is unremarkable. Spleen: No mass. No splenomegaly. Pancreas: No mass or duct dilation. Adrenals: No mass. Kidneys: No calculus, hydronephrosis or mass.. Lymph nodes: No abdominal or pelvic lymphadenopathy. Mesentery/Peritoneum : No ascites or mass. Vasculature: The celiac axis and SMA are patent. The portal vein and branches, splenic vein, SMV, and hepatic veins are patent. No aortic or iliac artery aneurysm. Pelvis: No ascites or fluid collection. 3.6 cm unilocular left adnexal cyst, stable since 03/23/2023 lumbar spine MRI. Hysterectomy. Bones/Soft Tissues: No osseous lesion. Lung Bases: Unremarkable. IMPRESSION: No active small bowel inflammation or acute process in the abdomen/pelvis. 3.6 cm unilocular left adnexal cyst, stable since 03/23/2023. Lens Silverer: [facility] Transcribe Date/Time: Apr 25 2024 2:55P Dictated by : ODALIS GALAVIZ MD This examination was interpreted and the report reviewed and electronically signed by: ODALIS GALAVIZ MD on Apr 25 2024 3:13PM EST [id number] Normal [facility] CT Small bowel W contrast PO and W contrast [place] 04-25-2024 IMPRESSION: No active small bowel inflammation or acute process in the abdomen/pelvis. 3.6 cm unilocular left adnexal cyst, stable since 03/23/2023. Lens Silverer: [facility] Transcribe Date/Time: Apr 25 2024 2:55P Dictated by : ODALIS GALAVIZ MD This examination was interpreted and the report reviewed and electronically signed by: ODALIS GALAVIZ MD on Apr 25 2024 3:13PM EST DIVISION OF RADIOLOGY * * *Final Report* * * DATE OF EXAM: Apr 25 2024 2:22PM [facility] 0545 - CT ENTEROGRAPHY W IVCON / PROCEDURE REASON: Abdominal pain, unspecified abdominal location * * * * Physician Interpretation * * * * CT ENTEROGRAPHY (ABDOMEN AND PELVIS CT WITH INTRAVENOUS CONTRAST; NEUTRAL ORAL CONTRAST) HISTORY: Abdominal pain, unspecified abdominal location TECHNIQUE: Single phase CT enterography was performed CONTRAST: IV: 100 ml of Omnipaque 350 Oral: [address] RADIATION DOSE: Integrated Dose-length product (DLP) for this visit = 361 mGy*cm. COMPARISON: 03/23/2023 outside spine MRI RESULT: ... GI Tract: Small bowel: Normal caliber. No abnormal wall thickening or enhancement. Colon: Unremarkable. Strictures: None. Fistulae/Sinus tracts: None. Abscess: None. Ancillary findings: None Abdomen: Liver: No mass. Biliary: No biliary dilatation. Gallbladder is unremarkable. Spleen: No mass. No splenomegaly. Pancreas: No mass or duct dilation. Adrenals: No mass. Kidneys: No calculus, hydronephrosis or mass.. Lymph nodes: No abdominal or pelvic lymphadenopathy. Mesentery/Peritoneum : No ascites or mass. Vasculature: The celiac axis and SMA are patent. The portal vein and branches, splenic vein, SMV, and hepatic veins are patent. No aortic or iliac artery aneurysm. Pelvis: No ascites or fluid collection. 3.6 cm unilocular left adnexal cyst, stable since 03/23/2023 lumbar spine MRI. Hysterectomy. Bones/Soft Tissues: No osseous lesion. Lung Bases: Unremarkable. DIVISION OF RADIOLOGY Provider, [facility] [place] - 04/25/2024 * * *Final Report* * * DATE OF EXAM: Apr 25 2024 2:22PM [facility] 0545 - CT ENTEROGRAPHY W IVCON / PROCEDURE REASON: Abdominal pain, unspecified abdominal location * * * * Physician Interpretation * * * * CT ENTEROGRAPHY (ABDOMEN AND PELVIS CT WITH INTRAVENOUS CONTRAST; NEUTRAL ORAL CONTRAST) HISTORY: Abdominal pain, unspecified abdominal location TECHNIQUE: Single phase CT enterography was performed CONTRAST: IV: 100 ml of Omnipaque 350 Oral: [address] RADIATION DOSE: Integrated Dose-length product (DLP) for this visit = 361 mGy*cm. COMPARISON: 03/23/2023 outside spine MRI RESULT: ... GI Tract: Small bowel: Normal caliber. No abnormal wall thickening or enhancement. Colon: Unremarkable. Strictures: None. Fistulae/Sinus tracts: None. Abscess: None. Ancillary findings: None Abdomen: Liver: No mass. Biliary: No biliary dilatation. Gallbladder is unremarkable. Spleen: No mass. No splenomegaly. Pancreas: No mass or duct dilation. Adrenals: No mass. Kidneys: No calculus, hydronephrosis or mass.. Lymph nodes: No abdominal or pelvic lymphadenopathy. Mesentery/Peritoneum : No ascites or mass. Vasculature: The celiac axis and SMA are patent. The portal vein and branches, splenic vein, SMV, and hepatic veins are patent. No aortic or iliac artery aneurysm. Pelvis: No ascites or fluid collection. 3.6 cm unilocular left adnexal cyst, stable since 03/23/2023 lumbar spine MRI. Hysterectomy. Bones/Soft Tissues: No osseous lesion. Lung Bases: Unremarkable. IMPRESSION IMPRESSION: No active small bowel inflammation or acute process in the abdomen/pelvis. 3.6 cm unilocular left adnexal cyst, stable since 03/23/2023. Lens Silverer: [facility] Transcribe Date/Time: Apr 25 2024 2:55P Dictated by : ODALIS GALAVIZ MD This examination was interpreted and the report reviewed and electronically signed by: ODALIS GALAVIZ MD on Apr 25 2024 3:13PM EST [facility] Radiology Study observation (narrative) [facility] CT Small bowel W contrast PO and W contrast IVOrdered By: [facility] Provider on 04-25-2024 [facility] 25(OH)D3 SerPl-mCncon 2023 25-hydroxyvitamin D3 [Mass/Vol] 39.3 ng/mL Normal 31.0-80.0 [facility] Comment on above: Order Comment: Speci men Type: BLOOD SPECIMEN Ordering Facility: [facility] Address: [address] [place] [address] Result Comment: Clas sification of 25 [place] Vitamin D status: Deficiency/Insufficiency: < or = 30 ng/ml. Sufficiency/Optimal Levels: 31-80 ng/mL Toxicity: > 100 ng/mL. Test performed by chemiluminescent immunoassay. Performed By: #### 1 989-3 #### [facility] CLIA [id number] [address] [place], [place] [address]K [address] OF [facility] CBC panel Auto (Bld)on 04-10 Erythrocyte distribution width (RBC) [Ratio] 12.4 % 11.5 - 15.0 % [facility] Hematocrit (Bld) [Volume fraction] 37.7 % 36.0 - 46.0 % [facility] Hemoglobin (Bld) [Mass/Vol] 12.5 g/dL 11.5 - 15.5 g/dL [facility] Interpretation and review of laboratory results Normal [facility] MCH (RBC) [Entitic mass] 30.8 pg 26. 0 - 34.0 pg [facility] MCHC (RBC) [Mass/Vol] 33.2 g/dL 30.5 - 36.0 g/dL [facility] MCV (RBC) [Entitic vol] 92.9 fL 80.0 - 100.0 fL [facility] Nucleated RBC (Bld) [#/Vol] NINF [facility] Platelet mean volume (Bld) [Entitic vol] 10.6 fL 9.0 - 12.7 fL [facility] Platelets (Bld) [#/Vol] 274 10*3/uL [facility] RBC (Bld) [#/Vol] 4.06 10*6/uL 3.90 - 5.2 0 m/uL [facility] WBC (Bld) [#/Vol] 5.79 10*3/uL [facility] Erythrocyte distribution width (RBC) [Ratio] 12.4 % Normal 11.5-15.0 [facility] Comment on above: Order Comment: Speci men Type: BLOOD SPECIMEN Ordering Facility: [facility] Address: [address] [place] [address] Performed By: #### 5 8410-2 #### [facility] CLIA [id number] [address] [place] [address] [place] Hematocrit (Bld) [Volume fraction] 37.7 % Normal 36.0-46.0 [facility] Comment on above: Order Comment: Speci men Type: BLOOD SPECIMEN Ordering Facility: [facility] Address: [address] [place] [address] Performed By: #### 5 8410-2 #### [facility] CLIA [id number] [address] [place] [address] [place] Hemoglobin (Bld) [Mass/Vol] 12.5 g/dL Normal 11.5-15.5 [facility] Comment on above: Order Comment: Speci men Type: BLOOD SPECIMEN Ordering Facility: [facility] Address: [address] [place] [address] Performed By: #### 5 8410-2 #### [facility] CLIA [id number] [address] [place] [address] [place] MCH (RBC) [Entitic mass] 30.8 pg Normal 26.0-34.0 [facility] Comment on above: Order Comment: Speci men Type: BLOOD SPECIMEN Ordering Facility: [facility] Address: [address] [place] [address] Performed By: #### 5 8410-2 #### [facility] CLIA [id number] [address] [place] [address] [place] MCHC (RBC) [Mass/Vol] 33.2 g/dL Normal 30.5-36.0 [facility] Comment on above: Order Comment: Speci men Type: BLOOD SPECIMEN Ordering Facility: [facility] Address: [address] [place] [address] Performed By: #### 5 8410-2 #### [facility] CLIA [id number] [address] [place] [address] [place] MCV (RBC) [Entitic vol] 92.9 fL Normal 80.0-100.0 [facility] Comment on above: Order Comment: Speci men Type: BLOOD SPECIMEN Ordering Facility: [facility] Address: [address] [place] [address] Performed By: #### 5 8410-2 #### [facility] CLIA [id number] [address] [place] [address] [place] Nucleated RBC (Bld) [#/Vol] 10*3/uL Normal <0.01 [facility] Comment on above: Order Comment: Speci men Type: BLOOD SPECIMEN Ordering Facility: [facility] Address: [address] [place] [address] Performed By: #### 5 8410-2 #### [facility] CLIA [id number] [address] [place] [address] [place] Platelet mean volume (Bld) [Entitic vol] 10.6 fL Normal 9.0-12.7 [facility] Comment on above: Order Comment: Speci men Type: BLOOD SPECIMEN Ordering Facility: [facility] Address: [address] [place] [address] Performed By: #### 5 8410-2 #### [facility] CLIA [id number] [address] [place] [address] [place] Platelets (Bld) [#/Vol] 274 10*3/uL Normal 150-400 [facility] Comment on above: Order Comment: Speci men Type: BLOOD SPECIMEN Ordering Facility: [facility] Address: [address] [place] [address] Performed By: #### 5 8410-2 #### [facility] CLIA [id number] [address] [place] [address] [place] RBC (Bld) [#/Vol] 4.06 10*6/uL Normal 3.90-5.20 [facility] Comment on above: Order Comment: Speci men Type: BLOOD SPECIMEN Ordering Facility: [facility] Address: [address] [place] [address] Performed By: #### 5 8410-2 #### [facility] CLIA [id number] [address] [place] [address] [place] WBC (Bld) [#/Vol] 5.79 10*3/uL Normal 3.70-11.00 [facility] Comment on above: Order Comment: Speci men Type: BLOOD SPECIMEN Ordering Facility: [facility] Address: [address] [place] [address] Performed By: #### 5 8410-2 #### [facility] CLIA [id number] [address] [place] [address] [place] CRP SerPl-mCncon 04-10-2024 CRP [Mass/Vol] mg/L Normal <0.9 [facility] Comment on above: Order Comment: Speci men Type: BLOOD SPECIMEN Ordering Facility: [facility] Address: [address] [place] [address] Performed By: #### 1 988-5, 93871-5 #### [facility] CLIA [id number] [address] [place] [address] [place] Comprehensive metabolic 2000 panelon 04-10-2024 Albumin [Mass/Vol] 4.5 g/dL Normal 3.9-4.9 [facility] Comment on above: Order Comment: Speci men Type: BLOOD SPECIMEN Ordering Facility: [facility] Address: [address] [id number] Performed By: #### 1 988-5, 12606-7 #### [facility] CLIA [id number] [address] [place] [address] [place] ALP [Catalytic activity/Vol] 80 U/L Normal 34-123 [facility] Comment on above: Order Comment: Speci men Type: BLOOD SPECIMEN Ordering Facility: [facility] Address: [address] [place] [address] Performed By: #### 1 988-5, 40089-1 #### [facility] CLIA [id number] [address] [place] [address] [place] ALT [Catalytic activity/Vol] 14 U/L Normal 7-38 [facility] Comment on above: Order Comment: Speci men Type: BLOOD SPECIMEN Ordering Facility: [facility] Address: [address] [place] [address] Performed By: #### 1 988-5, 06320-5 #### [facility] CLIA [id number] [address] [place] [address] [place] Anion gap [Moles/Vol] 12 mmol/L Normal 8-15 [facility] Comment on above: Order Comment: Speci men Type: BLOOD SPECIMEN Ordering Facility: [facility] Address: [address] [place], [place] [address] Performed By: #### 1 988-5, 00947-1 #### [facility] CLIA [id number] [address] [place] [address] [place] AST [Catalytic activity/Vol] 26 U/L Normal 13-35 [facility] Comment on above: Order Comment: Speci men Type: BLOOD SPECIMEN Ordering Facility: [facility] Address: [address] [place], [place] [address] Performed By: #### 1 988-5, 73913-1 #### [facility] CLIA [id number] [address] [place], [place] [id number] [place] Bilirubin [Mass/Vol] 0.2 mg/dL Normal 0.2-1.3 [facility] Comment on above: Order Comment: Speci men Type: BLOOD SPECIMEN Ordering Facility: [facility] Address: [address] [place] [address] Performed By: #### 1 988-5, 35013-7 #### [facility] CLIA [id number] [address] [place] [address] [place] Calcium [Mass/Vol] 9.6 mg/dL Normal 8.5-10.2 [facility] Comment on above: Order Comment: Speci men Type: BLOOD SPECIMEN Ordering Facility: [facility] Address: [address] [place] [address] Performed By: #### 1 988-5, 26910-8 #### [facility] CLIA [id number] [address] [place] [address] [place] Chloride [Moles/Vol] 102 mmol/L Normal 98-107 [facility] Comment on above: Order Comment: Speci men Type: BLOOD SPECIMEN Ordering Facility: [facility] Address: [address] [place] [address] Performed By: #### 1 988-5, 53314-9 #### [facility] CLIA [id number] [address] [place] [address] [place] CO2 [Moles/Vol] 24 mmol/L Normal 22-30 [facility] Comment on above: Order Comment: Speci men Type: BLOOD SPECIMEN Ordering Facility: [facility] Address: [address] [place] [address] Performed By: #### 1 988-5, 46501-4 #### [facility] CLIA [id number] [address] [place] [address] [place] Creatinine [Mass/Vol] 0.78 mg/dL Normal 0.58-0.96 [facility] Comment on above: Order Comment: Roman arriola Type: BLOOD SPECIMEN Ordering Facility: [facility] Address: [address] [place] [address] Performed By: #### 1 988-5, 55761-6 #### [facility] CLIA [id number] [address] [place] [address] [place] Creatinine and Glomerular filtration rate.predicted panel (S/P/Bld) 91 mL/min/1.73m??? Normal >=60 [facility] Comment on above: Order Comment: Roman arriola Type: BLOOD SPECIMEN Ordering Facility: [facility] Address: [address] [place] [address] Result Comment: Emelyn mated Glomerular Filtration Rate [...] accurately reflect actual GFR. Performed By: #### 1 988-5, 52832-9 #### [facility] CLIA [id number] [address] [place] [address] [place] Glucose [Mass/Vol] 94 mg/dL Normal 74-99 [facility] Comment on above: Order Comment: Roman arriola Type: BLOOD SPECIMEN Ordering Facility: [facility] Address: [address] [place] [address] Result Comment: The [place] Diabetes Association (ADA) provides guidance for cutoff [...] Standards of Medical Care in Diabetes 2016, [place] [employer]. Diabetes Care. 2016.39(Suppl 1). Performed By: #### 1 988-5, 19509-7 #### [facility] CLIA [id number] [address] [id number] [place] Potassium [Moles/Vol] 4.5 mmol/L Normal 3.7-5.1 [facility] Comment on above: Order Comment: Speci men Type: BLOOD SPECIMEN Ordering Facility: [facility] Address: [address] [place] [address] Performed By: #### 1 988-5, 42416-2 #### [facility] CLIA [id number] [address] [place] [address] [place] Protein [Mass/Vol] 7.7 g/dL Normal 6.3-8.0 [facility] Comment on above: Order Comment: Speci men Type: BLOOD SPECIMEN Ordering Facility: [facility] Address: [address] [place] [address] Performed By: #### 1 988-5, 16840-4 #### [facility] CLIA [id number] [address] [place] [address] [place] Sodium [Moles/Vol] 138 mmol/L Normal 136-144 [facility] Comment on above: Order Comment: Speci men Type: BLOOD SPECIMEN Ordering Facility: [facility] Address: [address] [id number] Performed By: #### 1 988-5, 11058-6 #### [facility] CLIA [id number] [address] [place] [address] [place] Urea nitrogen [Mass/Vol] 11 mg/dL Normal 7-21 [facility] Comment on above: Order Comment: Speci men Type: BLOOD SPECIMEN Ordering Facility: [facility] Address: [address] [id number] Performed By: #### 1 988-5, 16698-4 #### [facility] CLIA [id number] [address] [facility] [place] [id number] [place] ABDOMEN PELVIS WO IV CONT Ananth 04-02-2024 CT ABDOMEN PELVIS WO IV CONTRAST [...] BY: Ese Milligan, DO Normal Not Available Laboratory - Chemistry and C hemistry - challengeon 04-02-2024 Bilirubin Ql (U) Negative [facility] Glucose (U) [Mass/Vol] [facility] Ketones Ql (U) Negative [facility] pH (U) 9.0 [pH] [facility] Specific gravity (U) [Rel density] 1.[address] [facility] Urobilinogen (U) [Mass/Vol] 0.2 mg/dL [facility] Laboratory - Microbiology an d Antimicrobial susceptibilityOrdered By: Genevieve Feng on 04-02-2024 Bacteria identified Cx Nom (U) Escherichia coli Abnormal [facility] Laboratory - Specimen inform ationon 04-02-2024 Appearance (U) Clear [facility] Color (U) Clear [facility] Laboratory - Urinalysison Leukocyte esterase Test strip Ql (U) 1+ [facility] Nitrite Ql (U) Negative [facility] Protein Ql (U) Negative [facility] No Panel Informationon 04-02 Urine Occult Blood 3+ [facility] Urine Cultureon 04-02-2024 Bacteria identified Cx Nom (U) ORGANISM: Escherichia coli (O:ESCCOL) [place] Count >100,000 Aerobic LEXIS Charge (NMIC56) ----- SUSCEPTIBILITY ---- ORGANISM: O:ESCCOL ANTIBIOTIC INTERPRETATION LEXIS Amikacin S <16 Amoxacillin/K Clavulanate S <8 Ampicillin S <8 Ampicillin/Sulbactam S <4 Aztreonam S <4 Cefazolin S <2 Cefepime S <2 Ceftazidime S <1 Ceftazidime/Avibacta m S <4 Ceftolozane/Tazobact am S <2 Ceftriaxone S <1 Cefuroxime S <4 Ciprofloxacin S <0.25 Ertapenem S <0.5 Gentamicin S <2 Levofloxacin S <0.5 Meropenem S <1 Meropenem/Vaborbacta m S <2 Nitrofurantoin S <32 Piperacillin/Tazobac patel S <8 Tetracycline S <4 Tigecycline S <2 Tobramycin S <2 Trimethoprim/Sulfame thoxazole S <0.5 S = SUSCEPTIBLE I = [...] RESISTANT TO ALL B-LACTAM DRUGS. PERFORMED BY: [address] [place] [address] PATHOLOGIST PROGRAM SERVICES ASSISTANT ANUSHA ROMO M.D. Normal [facility] Comment on above: Performed By: #### C UU #### [place] [id number] [facility] 03-18-2024 HP Attestation signed by Seda Loza MD at [...] wishes to proceed. Amairani Tinoco MD PGY-4 chief of production [facility] NURSNOTEon 03-18-2024 NURSNOTE RN educated pt on d/c instructions. RN encouraged pt to voice any questions or concerns. Pt verbalizes no questions or concerns at this time. Pt was wheeled off of unit with all of belongings. [facility] Basophils Auto (Bld) [#/Vol] on 03-13-2024 Basophils (Bld) [#/Vol] 0.0 10 3/uL 0.0-0.[address] [facility] Basophils/100 WBC Auto (Bld) on 03-13-2024 Basophils/100 WBC (Bld) 0.6 % 0.2-2.0 [facility] Eosinophils/100 WBC Auto (Bl d)on 03-13-2024 Eosinophils/100 WBC (Bld) 2.4 % 0.9-7.[address] [facility] Erythrocyte distribution wid th Auto (RBC) [Ratio]on 03-13-2024 Erythrocyte distribution width (RBC) [Ratio] 12.0 % 11.0-15.[address] [facility] Estimated glomerular filtrat ion rate (GFR) non- Americanon 03-13-2024 GFR/1.73 sq M.predicted among non-blacks MDRD (S/P/Bld) [Vol rate/Area] mL/min/{1.73_m2} >=[address] [facility] Hematocrit Auto (Bld) [Volum e fraction]on 03-13-2024 Hematocrit (Bld) [Volume fraction] 36.7 % 36.0-48.[address] [facility] Hemoglobin [Mass/volume] in Bloodon 03-13-2024 Hemoglobin (Bld) [Mass/Vol] 12.3 g/dL 12.0-16.[address] [facility] Laboratory - Chemistry and C hemistry - challengeon 03-13-2024 Calcium [Mass/Vol] 8.8 mg/dL 8.5-10.1 [facility] Chloride [Moles/Vol] 99 mmol/L 98-107 [facility] CO2 [Moles/Vol] 32.4 mmol/L High 21.0-32.0 [facility] Creatinine [Mass/Vol] 0.66 mg/dL 0.55-1.02 [facility] GFR/1.73 sq M.predicted MDRD (S/P/Bld) [Vol rate/Area] mL/min/{1.73_m2} >=[address] [facility] Glucose [Mass/Vol] 97 mg/dL 74-106 [facility] Potassium [Moles/Vol] 4.3 mmol/L 3.5-5.1 [facility] Sodium [Moles/Vol] 136 mmol/L 136-145 [facility] Urea nitrogen [Mass/Vol] 17.0 mg/dL 7.0-18.[address] [facility] Urea nitrogen/Creatinine [Mass ratio] 25.8 mg/mg [facility] Laboratory - Hematology and Cell countson 03-13-2024 Immature granulocytes/100 WBC (Bld) 0.0 % 0.0-0.[address] [facility] Leukocytes [#/volume] correc alejandra for nucleated erythrocytes in Blood by Automated counon 03-13-2024 WBC corrected for nucl RBC Auto (Bld) [#/Vol] 6.3 10 3/uL 4.0-11.[address] [facility] Lymphocytes Auto (Bld) [#/Vo l]on 03-13-2024 Lymphocytes (Bld) [#/Vol] 1.7 10 3/uL 1.2-3.[address] [facility] Lymphocytes/100 WBC Auto (Bl d)on 03-13-2024 Lymphocytes/100 WBC (Bld) 27.0 % 20.5-60.[address] [facility] MCH Auto (RBC) [Entitic mass ]on 03-13-2024 MCH (RBC) [Entitic mass] 31.1 pg 26.7-34.[address] [facility] MCHC Auto (RBC) [Mass/Vol]on 03-13-2024 MCHC (RBC) [Mass/Vol] 33.5 g/dL 29.9-35.2 [facility] MCV Auto (RBC) [Entitic vol] on 03-13-2024 MCV (RBC) [Entitic vol] 92.7 fL 81.0-99.0 [facility] Monocytes Auto (Bld) [#/Vol] on 03-13-2024 Monocytes (Bld) [#/Vol] 0.5 10 3/uL 0.3-0.[address] [facility] Monocytes/100 WBC Auto (Bld) on 03-13-2024 Monocytes/100 WBC (Bld) 7.7 % 1.7-12.0 [facility] Neutrophils Auto (Bld) [#/Vo l]on 03-13-2024 Neutrophils (Bld) [#/Vol] 3.9 10 3/uL 1.4-6.[address] [facility] Neutrophils/100 WBC Auto (Bl d)on 03-13-2024 Neutrophils/100 WBC (Bld) 62.3 % 43.0-75.[address] [facility] No Panel Informationon 03-13 Eosinophils # (Auto) 0.2 10 3/uL 0.0-0.7 [facility] Immature Granulocyte # (Auto) 0.00 10 3/uL 0.00-0.[address] [facility] Platelet mean volume Auto (B ld) [Entitic vol]on 03-13-2024 Platelet mean volume (Bld) [Entitic vol] 9.7 fL 9.5-13.[address] [facility] Platelets Auto (Bld) [#/Vol] on 03-13-2024 Platelets (Bld) [#/Vol] 246 10 3/uL 150-[address] [facility] RBC Auto (Bld) [#/Vol]on RBC (Bld) [#/Vol] 3.96 10 6/uL Low 4.20-5.[address] [facility] Serum or plasma anion gap de terminationon 03-13-2024 Anion gap [Moles/Vol] 8.9 mmol/L [facility] DEXA BONE DENSITYon 03-12-20 DEXA BONE DENSITY FINDINGS: Dual Femur bone density obtained with a [employer]icaMetrixig[employer]iming whole body system: Region BMD Young-Adult Age-Matched [...] AP Spine bone density obtained with a [employer]icaMetrixig[employer]iming whole body system: Region BMD Young-Adult Age-Matched [...] Not Available Office Visiton 03-04-2024 Follow-up visit [id number] Yuri Gallagher 1970 F Date Provider Department Center 03/04/2024 Cat8-SEDA LOZA BRANDY [facility] Family History Problem Relation Age of Onset No Known Problems Mother Heart attack Father Coronary artery disease Father's Brother Stroke Paternal Grandfather Family Status - Relation Status Age at Mother Father Father's Brother Paternal Grandfather Level of Service:27740 MO OFFICE/OUTPATIENT NEW MODERATE MDM 45 MINUTES Normal [facility] Orders Onlyon 03-04-2024 Orders Only [id number] Yuri Gallagher 1970 F Date Provider Department Center 03/04/2024 TANISHA ANDINO BRANDY [facility] Family History Problem Relation Age of Onset No Known Problems Mother Heart attack Father Coronary artery disease Father's Brother Stroke Paternal Grandfather Family Status - Relation Status Age at Mother Father Father's Brother Paternal Grandfather Normal [facility] CNOVon 06-21-2023 [facility] Office Visit ([facility]) SOCORRO GALLAGHER ([id number]) 1970 F Date Time Provider Department 06/21/23 8:00 AM MARSHA LANDA [facility] During your visit today, we recorded the following information about you: Weight Height 64 kg 1.6 m Marsha Landa, THERAPY SITE COORDINATOR.SUPERVISORY HISTORIAN 06/21/2023 9:30 AM Signed [facility] Path [...] under the care of pain management in [facility] where she recently underwent a right gluteal nerve block without improvement in symptoms. She states that at postinjection follow-up she was offered a piriformis injection but is reluctant to proceed. She reports that she recently had an EMG completed. EMG results were not available at time of today's appointment. 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 Nonsmoker Pain localized to right buttocks Pain described as pressure, aching, burning Radiation:RLE laterally to knee, then entirely to calf and foot Numbness/Tingling:RL E laterally to knee, then entirely to calf [...] prednisone Physical Therapy: Spring 2022 attended at [facility] , she states sessions were not [...] Foot-Right Back-Lower radiates to R leg Description: Aching;Burning;Dull; Numbness;Tingling Burning Numbness and tingling on R leg Duration Units: Months Years got worse in the last year Frequency: Continuous Continuous Intervention/Comfort measure: Medication;Repositio n;Positioning -- Litigation: No Workers' Compensation: No YELLOW [...] Denies christina (more content not included)... Normal [facility] RAD - Ultrasound Reporton RAD - Ultrasound Report [id number] #1.00CD:127 Normal [facility] Coding Summary.on 07-31-2020 Coding Summary. CODING DATE: 07/31/2020 FINAL [facility] STATUS: Home (Routine DC) PAYOR: [facility] [employer] DESCRIPTION 5373 Level 3 Urology and [...] [place] Date Saved: 07/31/2020 12:41 pm [facility] Consent for Procedure/Surger yon 07-30-2020 Consent for Procedure/Surgery [id number] 7#1.00CD:127 [facility] Consent for Treatmenton 07-11 Consent for Treatment [id number] #1.00CD:127 [facility] Discharge Instructionson Discharge Instructions [id number]#1.00CD:127 [facility] History and Physicalon 07-30 History and Physical [id number] 2#1.00CD:127 [facility] IntraOperative Documentson 0 07-30-2020 IntraOperative Documents [id number] 9#1.00CD:127 [facility] Main OR Intraoperative Recor don 07-30-2020 Main OR Intraoperative Record IntraOp Document Type FTURO Summary Primary Physician: Facundo Fam Jr., MD Finalized Date/Time: 07/30/20 13:50:41 Pt. Name: ELLIOTTYURI/Sex: 1970 Female Med Rec #: [id number] Physician: Facundo Fam Jr., MD Financial #: [id number] Pt. Type: O Room/Bed: / Admit/Disch: 07/30/20 [...] Yadav MD, Facundo Macias RN, LUKEOR, Diana Mei CST, Marisela Reeves Role Performed Surgeon - Primary Side Panel Padder - Primary Scrub - Primary Time In [...] Macias RN, Lou Ann 07/30/20 13:50 Normal [facility] Main OR Preoperative Recordo n 07-30-2020 Main OR Preoperative Record Holding Area Document Type FTURO Summary Primary Physician: Facundo Fam Jr., MD Finalized Date/Time: 07/30/20 13:41:28 Pt. Name: YURI GALLAGHER/Sex: 1970 Female Med Rec #: [id number] Physician: Facundo Fam Jr., MD Financial #: [id number] Pt. Type: O Room/Bed: / Admit/Disch: 07/30/20 13:06:47 - Institution: Case Times Holding FTURO Pre-Care Text: Verifies consent for planned procedure, identifies individual values and wishes concerning care, includes family members in perioperative teaching Secures patient's records' belongings, and valuables, maintains patient's dignity and privacy, and maintains patient confidentiality Entry 1 In Holding 07/30/20 13:19:00 Outcomes Met? Yes Last Modified By: Kirstie WOOD Yuri 07/30/20 13:19:37 Post-Care Text: The patient participates [...] Macias RN, Lou Ann 07/30/20 13:41 Normal [facility] Operative Reporton 1 Operative Report Patient: YURI GALLAGHER Age: 49 years Sex: Female : 1970 Associated Diagnoses: None Author: Sarwat Yadav MD, Facundo Felix Procedure Operative Information Pre-Op Dx: Frequency - R35.0, Urgency - R39.15, Hx of UTI's - Z87.440. Post-Op Dx: Same. Anesthesia Type: Local. Procedure: Local Cystoscopy with Urethral Dilation. Complications: None. Risks/Benefits/Infor med Consent: Surgical risks, benefits, details of the [...] urine. The Urethra was dilated to: 28 Y[place] w/ sounds. Devices Implanted: None. Removal: Cystoscope is removed, The patient tolerated it well. Postoperative Information Discharge: Patient is discharged home with antibiotic coverage, Follow up arranged. Normal [facility] Comment on above: Result Comment: Elec [...] have a fever over 100 degrees Normal [facility] Ambulatory Clinical Summaryo n 07-21-2020 Ambulatory Clinical Summary {[id number]}CD:[id number] Normal [facility] Ambulatory Clinical Summary {[id number]}CD:[id number] Normal [facility] Patient Educationon 07-21-19 Patient Education Urinary [...] Document Reviewed: 08/03/2012 ExitCare? Patient Information ?2013 [employer] [facility] Urology Office/Clinic Noteon 07-21-2020 Urology Office/Clinic [...] Will order Local anesthesia. ABX sent to [facility] in [place]. Ordered: Urology Procedure Order US Renal 2. [...] day(s), # 2 tab(s), Refills(s) 0, Pharmacy: [facility]/pharmacy #[id number], 162, cm, 07/21/20 13:48:00 EST, Height/Length Dosing, 68.5, kg, 07/21/20 13:48:00 EST, Weight Dosing Urnls Dip Stick Auto w/o Microscopy POC 20732 I have reviewed the previous health record information and history for this pt. from Dr. Fam. Follow-up With When Contact Information Sarwat Yadav MD, Facundo [address] [place] [phone] Additional Instructions: Patient Education Urinary Tract Infection [...] Protein Urine Dipstick: Negative (07/21/20 13:39:00) Specific [place] Urine Dipstick: 1.020 (07/21/20 13:39:00) Urine Appearance [...] she is been treated with Bactrim DS. [facility] Comment on above: Result Comment: Elec tronically Signed By: Sarwat Yadav MD, Facundo Felix\.br\Date and Time Signed: 07/21/20 14:42 EST\.br\Electronically Co-Signed By: Lety Marino MA\.br\Date and Time Co-Signed: 07/21/20 14:31 EST Vital Signs Date Time Vital Sign Value Performing Clinician Luke manzano 05-02-2024 11:30-0400 Diastolic blood pressure 80 mm[Hg] PHYSICIAN NO [facility] 05-02-2024 11:30-0400 Heart rate 68 /min PHYSICIAN NO [facility] 05-02-2024 11:30-0400 Respiratory rate 16 /min PHYSICIAN NO [facility] 05-02-2024 11:30-0400 SaO2% (BldA) [Mass fraction] 97 % PHYSICIAN NO [facility] 05-02-2024 11:30-0400 Systolic blood pressure 117 mm[Hg] PHYSICIAN NO [facility] 05-02-2024 10:25-0400 Body height 160.02 cm PHYSICIAN NO [facility] 05-02-2024 10:25-0400 Body temperature 97.1 [degF] PHYSICIAN NO [facility] 05-02-2024 10:25-0400 Body weight 61.23 kg PHYSICIAN NO [facility] 05-01-2024 08:59-0400 Body height 160.02 cm PHYSICIAN NO [facility] 05-01-2024 08:59-0400 Body mass index (BMI) [Ratio] 23.9 kg/m2 PHYSICIAN NO [facility] 05-01-2024 08:59-0400 Body weight 61.23 kg PHYSICIAN NO [facility] 04-10-2024 13:24-0400 Body height 160 cm Kyle Zhu MD Work Phone: [facility] 04-10-2024 13:24-0400 Body mass index (BMI) [Ratio] 23.74 kg/m2 Kyle Zhu MD Work Phone: [facility] 04-10-2024 13:24-0400 Body temperature 98.2 [degF] Kyle Zhu MD Work Phone: [facility] 04-10-2024 13:24-0400 Body weight 60.78 kg Kyel Zhu MD Work Phone: [facility] 04-10-2024 13:24-0400 Diastolic blood pressure 80 mm[Hg] Kyle Zhu MD Work Phone: [facility] 04-10-2024 13:24-0400 Heart rate 77 /min Kyle Zhu MD Work Phone: [facility] 04-10-2024 13:24-0400 SaO2% (BldA) [Mass fraction] 97 % Kyle Zhu MD Work Phone: [facility] 04-10-2024 13:24-0400 Systolic blood pressure 120 mm[Hg] Kyle Zhu MD Work Phone: [facility] 04-02-2024 10:11-0400 Body height 160.02 cm DAGMAR Reneenifer Jung Work Phone: [facility] 04-02-2024 [id number] Body height 160.02 cm [facility] 04-02-2024 09:07-0400 Body mass index (BMI) [Ratio] 25 kg/m2 [facility] 04-02-2024 09:07-0400 Body temperature 97.4 [degF] [facility] 04-02-2024 09:07-0400 Body weight 64.01 kg [facility] 04-02-2024 09:07-0400 Diastolic blood pressure 80 mm[Hg] [facility] 04-02-2024 09:07-0400 Systolic blood pressure 124 mm[Hg] [facility] 03-21-2024 08:26-0400 Body height 160.02 cm [facility] 03-21-2024 08:26-0400 Body mass index (BMI) [Ratio] 24.6 kg/m2 [facility] 03-21-2024 08:26-0400 Body weight 63.04 kg [facility] 03-21-2024 08:26-0400 Diastolic blood pressure 70 mm[Hg] [facility] 03-21-2024 08:26-0400 Heart rate 73 /min [facility] 03-21-2024 08:26-0400 Respiratory rate 18 /min [facility] 03-21-2024 08:26-0400 SaO2% (BldA) [Mass fraction] 99 % [facility] 03-21-2024 08:26-0400 Systolic blood pressure 118 mm[Hg] [facility] 02-26-2024 13:28-0400 Body height 160.02 cm [facility] 02-26-2024 13:28-0400 Body mass index (BMI) [Ratio] 25.1 kg/m2 [facility] 02-26-2024 13:28-0400 Body weight 64.41 kg [facility] 02-26-2024 13:28-0400 Diastolic blood pressure 70 mm[Hg] [facility] 02-26-2024 13:28-0400 Heart rate 80 /min [facility] 02-26-2024 13:28-0400 SaO2% (BldA) [Mass fraction] 98 % [facility] 02-26-2024 13:28-0400 Systolic blood pressure 130 mm[Hg] [facility] 02-19-2024 15:29-0400 Body height 160.02 cm [facility] 02-19-2024 15:29-0400 Body mass index (BMI) [Ratio] 25.3 kg/m2 [facility] 02-19-2024 15:29-0400 Body weight 64.86 kg [facility] 02-19-2024 15:29-0400 Diastolic blood pressure 80 mm[Hg] [facility] 02-19-2024 15:29-0400 Heart rate 87 /min [facility] 02-19-2024 15:29-0400 SaO2% (BldA) [Mass fraction] 98 % [facility] 02-19-2024 15:29-0400 Systolic blood pressure 136 mm[Hg] [facility] 10-12-2023 08:26-0400 Body height 160.02 cm [facility] 10-12-2023 08:26-0400 Body mass index (BMI) [Ratio] 25.1 kg/m2 [facility] 10-12-2023 08:26-0400 Body weight 64.41 kg [facility] 10-12-2023 08:26-0400 Diastolic blood pressure 78 mm[Hg] [facility] 10-12-2023 08:26-0400 Heart rate 78 /min [facility] 10-12-2023 08:26-0400 SaO2% (BldA) [Mass fraction] 98 % [facility] 10-12-2023 08:26-0400 Systolic blood pressure 112 mm[Hg] [facility] 09-14-2023 09:36-0500 Body height 160.02 cm [facility] 09-14-2023 09:36-0500 Body mass index (BMI) [Ratio] 24.6 kg/m2 [facility] 09-14-2023 09:36-0500 Body weight 63.04 kg [facility] 09-14-2023 09:36-0500 Diastolic blood pressure 82 mm[Hg] [facility] 09-14-2023 09:36-0500 Heart rate 88 /min [facility] 09-14-2023 09:36-0500 SaO2% (BldA) [Mass fraction] 98 % [facility] 09-14-2023 09:36-0500 Systolic blood pressure 118 mm[Hg] [facility] 06-21-2023 07:56-0500 Body height 160 cm Marsha Landa THERAPY SITE COORDINATOR.SUPERVISORY HISTORIAN Work Phone: [facility] 06-21-2023 07:56-0500 Body weight 63.96 kg Marsha Landa THERAPY SITE COORDINATOR.SUPERVISORY HISTORIAN Work Phone: [facility] 03-20-2023 08:57-0400 Body height 160 cm JAM Melgar MD Work Phone: [facility] 03-20-2023 08:57-0400 Body weight 61.24 kg JAM Melgar MD Work Phone: [facility] Encounters Encounter Date Encounter Type Care Provider Facility Start: 05-13-2024 End: 05-13-2024 Bamboo flowsheet Linda DEVINE Work Phone: [facility] Start: 05-13-2024 End: 05-13-2024 Bamboo flowsheet Linda DEVINE Work Phone: [facility] Start: 05-13-2024 End: 05-13-2024 Patient encounter procedure Linda DEVINE Work Phone: [facility] Start: 05-13-2024 End: 05-13-2024 Periodic preventive med est patient 40-64yrs Linda DEVINE Work Phone: [facility] Comment on above: Well woman exam with routine gynecological exam; Other screening mammogram; Surgical menopause Start: 05-02-2024 Non-patient / Non-visit PHYSICIAN NO [facility] Work Phone: Start: 05-02-2024 End: 05-02-2024 Admission to same day surgery center PHYSICIAN NO [facility] Work Phone: Start: 05-02-2024 End: 05-02-2024 ambulatory PHYSICIAN NO [facility] Work Phone: Start: 05-02-2024 End: 05-02-2024 Patient encounter procedure PHYSICIAN NO [facility] [address] Work Phone: Start: 05-02-2024 End: 05-02-2024 ambulatory PHYSICIAN NO [facility] Work Phone: Start: 05-01-2024 End: 05-01-2024 ambulatory PHYSICIAN NO [facility] Work Phone: Start: 05-01-2024 End: 05-01-2024 Patient encounter procedure PHYSICIAN NO [facility] Work Phone: Start: 04-25-2024 End: 04-25-2024 ambulatory KYLE ZHU Facility:[facility] Start: 04-25-2024 End: 04-25-2024 Subsequent hospital visit by physician Ct Prep [facility] Radiology Ct Scan Comment on above: Abdominal pain, unsp ecified abdominal location [R10.9] Start: 04-10-2024 End: 04-10-2024 Patient encounter procedure Kyle Zhu MD Work Phone: Gastroenterology Comment on above: Abdominal pain, unsp ecified abdominal location (Primary Dx) Start: 04-10-2024 End: 04-10-2024 ambulatory KYLE ZHU Facility:[facility] Start: 04-08-2024 End: 04-08-2024 [facility] Start: 04-02-2024 End: 04-02-2024 ambulatory BLANKA AGUIRRE Not Available Start: 04-02-2024 End: 04-02-2024 Patient encounter procedure [facility] Work Phone: Start: 04-02-2024 End: 04-02-2024 ambulatory Genevieve Feng [facility] Work Phone: Start: 04-02-2024 End: 04-02-2024 Departed Referred THERAPY SITE COORDINATOR Genevieve Feng Work Phone: [facility] [place] Work Phone: Start: 03-22-2024 End: 03-22-2024 ambulatory BLANKA Juice AGUIRRE Not Available Start: 03-21-2024 End: 03-21-2024 ambulatory [facility] Work Phone: Start: 03-21-2024 End: 03-21-2024 Patient encounter procedure [facility] Work Phone: Start: 03-18-2024 End: 03-18-2024 ambulatory [facility] Start: 03-18-2024 End: 03-18-2024 ambulatory [facility] Start: 03-13-2024 Non-patient / Non-visit [facility] Work Phone: Start: 03-12-2024 End: 03-12-2024 ambulatory LINDA TONI Not Available Start: 03-05-2024 End: 03-05-2024 ambulatory LINDA TONI Not Available Start: 03-04-2024 Non-patient / Non-visit [facility] Work Phone: Start: 03-04-2024 End: 03-04-2024 ambulatory [facility] Start: 02-26-2024 End: 02-26-2024 ambulatory [facility] Work Phone: Start: 02-26-2024 End: 02-26-2024 Patient encounter procedure [facility] Work Phone: Start: 02-19-2024 End: 02-19-2024 ambulatory [facility] Work Phone: Start: 02-19-2024 End: 02-19-2024 Patient encounter procedure [facility] Work Phone: Start: 10-26-2023 End: 10-26-2023 ambulatory BETHANY CHANG Not Available Start: 10-12-2023 Patient encounter status [facility] Start: 10-12-2023 End: 10-12-2023 ambulatory [facility] Work Phone: Start: 10-12-2023 End: 10-12-2023 Encounter for general adult medical examination without abnormal findings [facility] Start: 10-12-2023 End: 10-12-2023 Patient encounter procedure [facility] Work Phone: Start: 09-14-2023 End: 09-14-2023 Patient encounter procedure [facility] Work Phone: Start: 06-21-2023 End: 06-21-2023 ambulatory MARSHA LANDA Facility:[facility] Start: 06-21-2023 End: 06-21-2023 Patient encounter procedure Marsha Landa THERAPY SITE COORDINATOR.SUPERVISORY HISTORIAN Work Phone: [facility] Comment on above: Right leg pain (Prim antonietta Dx); Numbness and tingling of right lower extremity; Piriformis syndrome, right Start: 06-12-2023 End: 06-12-2023 ambulatory LINDA MUÑOZ Not Available Start: 03-23-2023 End: 03-23-2023 ambulatory MD Agustin Mortensen Work Phone: [facility] Work Phone: Start: 03-23-2023 End: 03-23-2023 Patient encounter procedure MD Agustin Mortensen Work Phone: [facility] [address] Work Phone: Start: 03-20-2023 End: 03-20-2023 Patient encounter procedure J Chava Melgar MD Work Phone: Plastic Surgery Comment on above: Encounter for cosmet ic surgery (Primary Dx) Start: 10-20-2022 End: 10-21-[address] AGUSTIN MORTENSEN Facility:[facility] Start: 10-11-2022 End: 10-12-2022 ambulatory LORRI Garcia [facility] Facility:[facility] Procedures Date Procedure Procedure Detail Performing Clinician Start: 05-02-2024 Esophagogastroduodenoscopy PHYSICIAN NO FAMILY Start: 05-02-2024 MR thoracic spine wo con PHYSICIAN NO FA WESLY Start: 05-02-2024 XR pre/post mri xray PHYSICIAN NO FAMILY Start: 04-25-2024 Ct abdomen & pelvis w/contrast material Kyle Zhu MD Work Phone: Start: 04-02-2024 Bacteria identified in Urine by Culture PHYSICIAN NO FAMILY Start: 06-12-2023 Mammography Linda DEVINE Work Phone: Start: 03-23-2023 XR pre/post mri xray MD Agustin Mortensen Work Phone: Start: 03-23-2023 MR lumbar spine wo con MD Agustin Mortensen Work Phone: Plan of Treatment Date Care Activity Detail Author Start: 04-06-2028 Screening for malign ant neoplasm of cervix [facility] Start: 04-10-2027 Diabetes Screening Diabetes Screenin g [facility] Start: 01-30-2026 Diabetes Screening Diabetes Screenin g [facility] Start: 10-24-2024 End: 10-24-2024 Patient encounter procedure 10/24/2024 8:40 AM EDT Office Visit [facility] [address] [place] [address] Bethany Chang APRN-SUPERVISORY HISTORIAN [address] [place] [address] [facility] Start: 06-23-2024 Screening for malign ant neoplasm of colon [facility] Start: 06-12-2024 Screening for malign ant neoplasm of breast [facility] Start: 05-14-2024 End: 05-14-2024 Patient encounter procedure 05/14/2024 3:30 PM EST Office Visit [facility] [address] [place], [place] [id number] Marsha Landa APRN.SUPERVISORY HISTORIAN [address] [place] [address] tightness in my upper abdomen and under my ribs [facility] Comment on above: tightness in my uppe r abdomen and under my ribs Start: 05-13-2024 End: 07-13-2025 MG Breast - bilateral Screening Bilateral screening mammogram Imaging Routine Well woman exam with routine gynecological exam Other screening mammogram Expected: 05/13/2024, Expires: 07/13/2025 [facility] Work Phone: Comment on above: Expected: 05/13/2024 , Expires: 07/13/2025 Start: 05-13-2024 End: 05-13-2024 Patient encounter procedure 05/13/2024 9:00 AM EST Office Visit [facility] [address] [place] [id number] Linda Muñoz PA [address] [place], [place] [id number] Arrived [facility] Comment on above: Arrived Start: 05-02-[address] [facility] Start: 05-02-2024 MR Thoracic spine [facility] Start: 05-02-2024 MR thoracic spine wo con MR th oracic spine wo con [facility] Start: 05-02-2024 XR pre/post mri xray XR pre/post mri xray [facility] Start: 05-02-2024 End: 05-02-[address] [facility] Start: 04-25-2024 End: 04-25-2024 Patient encounter procedure Radiology Ct Scan Comment on above: CT ENTEROGRAPHY W IV CON Start: 04-10-2024 End: 07-10-2024 25-hydroxyvitamin D3 [Mass/volume] in Serum or Plasma [facility] Comment on above: Expected: 04/10/2024 , Expires: 07/10/2024 Start: 04-10-2024 End: 07-10-2024 C reactive protein [Mass/volume] in Serum or Plasma [facility] Comment on above: Expected: 04/10/2024 , Expires: 07/10/2024 Start: 04-10-2024 End: 07-10-2024 Comprehensive metabolic 2000 panel - Serum or Plasma [facility] Work Phone: Comment on above: Expected: 04/10/2024 , Expires: 07/10/2024 Start: 04-02-2024 Bacteria identified in Urine by Culture [facility] Start: 03-10-2024 Covid-19 Vaccine () Covid-19 Vaccine () [facility] Start: 03-10-2024 Influenza vaccination Influenza Vacc ine (#1) [facility] Start: 04-25-2023 Shingrix Vaccine (2 of 2) Shingrix Vaccine (2 of 2) [facility] Start: 03-10-2023 Influenza vaccination C [facility] Start: 07-10-2022 DEPRESSION ASSESSMENT DEPRESSION ASS ESSMENT [facility] Start: 2020 SHINGRIX VACCINE (1 of 2) SHINGRIX VACCINE (1 of 2) [facility] Start: 12-07-2015 COLOGUARD (FIT-DNA) COLOGUARD (FIT-D NA) [facility] Start: 12-07-2015 Colonoscopy COLONOSCOPY [facility] Start: 12-07-2015 COLORECTAL CANCER SCREENING COLORECTAL CANCER SCREENING [facility] Start: 12-07-[address] COLONOGRAPHY [facility] Start: 12-07-2015 [facility]ABET[facility]CREEN [facility] Start: 12-07-2015 Diabetes Screening Diabetes Screenin g [facility] Start: 12-07-2015 FECAL OCCULT BLOOD FECAL OCCULT BLOO D [facility] Start: 12-07-2015 Lipid panel Lipid Screening [facility] Start: 12-07-2015 LIPID SCREEN LIPID SCREEN [facility] Start: 12-07-2015 Screening for malign ant neoplasm of colon [facility] Start: 12-07-2015 [facility]OSCOPY [facility] Start: 2010 Mammography MAMMOGRAM [facility] Start: 2000 HPV TESTING HPV TESTING [facility] Start: 2000 Screening for malign ant neoplasm of cervix HPV Testing [facility] Start: 12-07-1991 PAP TESTING PAP TESTING [facility] Start: 12-07-1991 Screening for malign ant neoplasm of cervix [facility] Start: 1989 Hepatitis B Vaccine (1 of 3 - 19+ 3-dose series) Hepatitis B Vaccine (1 of 3 - 19+ 3-dose series) [facility] Start: 1989 Urine microalbumin profile [facility] Start: 1988 Anxiety Screening Anxiety Screening [facility] Start: 1988 Depression Screening Depression Scre ening [facility] Start: 1988 HEPATITIS C SCREENING HEPATITIS C [facility] Start: 1988 Hepatitis C screening Hepatitis C Sc [facility] Start: 1988 HIV SCREENING HIV SCREENING [facility] Start: 1988 HIV screening HIV Screening [facility] Start: 06-08-1971 COVID-19 VACCINE (#1) COVID-19 VACCI NE (#1) [facility] Start: 1970 HEPATITIS B (1 of 3 - 3-dose series) HEPATITIS B (1 of 3 - 3-dose series) [facility] Start: 1970 Hepatitis B Vaccine (1 of 3 - 3-dose series) Hepatitis B Vaccine (1 of 3 - 3-dose series) [facility] Start: 1970 Screening for malign ant neoplasm of colon [facility] Cardiovascular stres s testing [facility] Comprehensive metabo lic 2000 panel - Serum or Plasma [facility] End: 05-10-2025 CT Small bowel W contrast PO and W contrast IV CT ENTEROGRAPHY W IVCON Radiology Routine Abdominal pain, unspecified abdominal location 1 Occurrences starting 04/10/2024 until 05/10/2025 [facility] Comment on above: 1 Occurrences starti ng 04/10/2024 until 05/10/2025 Holter monitor study [facility] Patient Education Know your Meds [facility] Work Phone: THIN PREP TIS PAP AN D HR HPV DNA THIN PREP TIS PAP AND HR HPV DNA Pathology and Cytology Routine Well woman exam with routine gynecological exam Ordered: 05/13/2024 [facility] Comment on above: Ordered: 05/13/2024 US Abdomen limited [facility] US Pelvis [facility] Immunizations Immunization Date Immunization Notes Care Provider Reyna okeefe 02-28-2023 zoster vaccine recombinant [facility] 11-03-2020 COVID-19 Ad26.COV2.S (Anabell) [facility] Payers Date Payer Category Payer Self-pay [id number] 2023 Unknown [id number] 2023 Unknown [id number] 2022 Private Health Insurance [employer] [id number] 2022 Unknown MMO MMO [employer] PPO [id number] 2022-Present [phone] [address] [place] [address] PPO [id number] 1970 Unknown [id number] 1970 Unknown [id number]. 593 1970 Unknown [id number]. 1259 1970 Unknown [id number]. 9 1970 Unknown [id number] 9 1970 Unknown [id number]. 1258 1970 Unknown [id number]. 1258 1970 Unknown [id number]. 1259 1959 Unknown [id number] 1959 Unknown [id number] Unknown [id number] 531 Unknown [id number] 531 Unknown [id number] 531 Social History Date Type Detail Facility Tobacco smoking stat us MNIS Tobacco smoking consumption unknown [facility] Start: 03-14-2023 End: 03-20-2024 History of Social function [facility] Start: 03-14-2023 End: 03-20-2024 Area Deprivation Index [facility] National Score (1-10 0), lower number is lower risk 61 [facility] Start: 1970 Sex Assigned At Not on file [facility] Start: 1970 Sex Assigned At Female [facility] Start: 10-12-2023 End: 10-26-2023 Tobacco smoking status NHIS Never smoked tobacco (finding) [facility] Start: 04-10-2024 Tobacco use and exposure Smokeless tobacco non-user [facility] Start: 04-10-2024 Alcoholic beverage intake Ex-drinker (finding) [facility] Start: 03-22-2024 Alcoholic beverage intake Current drinker of alcohol (finding) [facility] Do you belong to any clubs or organizations such as roman catholic groups, unions, fraternal or athletic groups, or school groups? No [facility] Are you now , , , , never or living with a partner? [facility] How often to you hav e a drink containing alcohol? 2-4 times a month [facility] How many standard dr inks containing alcohol do you have on a typical day? 1 or 2 [facility] How often do you hav e 6 or more drinks on 1 occasion? Never [facility] Do you feel stress - tense, restless, nervous, or anxious, or unable to sleep at night because your mind is troubled all the time - these days [OSQ] To some extent [facility] (I/We) worried wheth er (my/our) food would run out before (I/we) got money to buy more. Never true [facility] Start: 03-15-2023 Alcohol Comment 1-2 drinks less than monthly in the past year, Caffeine intake: 1-2 cups per day coffee [facility] Start: 03-16-2023 Gender identity Identifies as female gender (finding) [facility] Goals Date Patient Goal Desired Activity /State Clinical Notes 01-06-2015 to 05-13-2024 SYBIL Ortiz - 05/13/2024 9:00 AM EST Note Date & Type Note Facility 05-13-2024 History of Presen t illness Narrative Reason for Appointment: Patient ID: Socorro Gallagher is a 53 y.o. female who presents for Gynecologic Exam Patient presents today for Annual Exam. MEDICATIONS Current Outpatient Medications Medication Instructions aspirin 81 MG EC tablet Daily busPIRone (Buspar) 5 MG tablet Oral, 2 times daily estradiol (ESTRACE) 0.5 mg, Oral, Daily LORazepam (ATIVAN) 0.5 mg, Oral, Every 6 hours PRN pantoprazole (PROTONIX) 40 mg, Oral, Daily before breakfast Tretinoin (Altreno) 0.05 % lotion Apply thin layer to face at bedtime ALLERGIES No Known Allergies PROBLEMS Active Ambulatory Problems Diagnosis Date Noted Well woman exam with routine gynecological exam 05/13/2024 Resolved Ambulatory Problems Diagnosis Date Noted No Resolved Ambulatory Problems Past Medical History: Diagnosis Date Kidney stone Myocardial bridge (CMS/HCC) HISTORY PAST MEDICAL HISTORY SOCIAL HISTORY Past Medical History: Diagnosis Date Kidney stone Myocardial bridge (CMS/HCC) Social History Tobacco Use Smoking status: Never Smokeless tobacco: Not on file Substance Use Topics Alcohol use: Yes Comment: 1-2 drinks less than monthly in the past year, Caffeine intake: 1-2 cups per day coffee Drug use: Never FAMILY HISTORY Family History Problem Relation Name Age of Onset Heart disease Father Melanoma Neg Hx SURGICAL HISTORY Past Surgical History: Procedure Laterality Date SECTION, LOW TRANSVERSE x3 FOOT SURGERY Left plantar fasciitis surgery HYSTERECTOMY REVIEW OF SYSTEMS Review of Systems: Review of Systems Constitutional: Negative. HENT: Negative. Eyes: Negative. Respiratory: Negative. Cardiovascular: Negative. Gastrointestinal: Negative. Genitourinary: Negative. Musculoskeletal: Negative. Skin: Negative. Neurological: Negative. All other systems reviewed and are negative. Hematological: Negative. Endocrine: Negative. Allergic/Immunologic: Negative. OBJECTIVE Objective: Physical Exam Constitutional: Appearance: Normal appearance. Genitourinary: Right Adnexa: not tender and no mass present. Left Adnexa: not tender and no mass present. No cervical discharge. Breasts: Breasts are soft. Right: Normal. Left: Normal. HENT: Head: Normocephalic. Nose: Nose normal. Mouth/Throat: Mouth: Mucous membranes are moist. Cardiovascular: Rate and Rhythm: Normal rate. Pulmonary: Effort: Pulmonary effort is normal. Abdominal: General: Bowel sounds are normal. Palpations: Abdomen is soft. Musculoskeletal: General: Normal range of motion. Cervical back: Normal range of motion. Neurological: General: No focal deficit present. Mental Status: She is alert. Skin: General: Skin is warm and dry. Psychiatric: Mood and Affect: Mood normal. Vitals and nursing note reviewed. Exam conducted with a retail leader present. Vitals: Estimated body mass index is 25.01 kg/m as calculated from the following: Height as of 03/22/24: 5' 3 . Weight as of 03/22/24: 141 lb 3.2 oz. BP: No LMP recorded (lmp unknown). Patient has had a hysterectomy. ASSESSMENT & PLAN ICD-10-CM 1. Well woman exam with routine gynecological exam Z01.419 Bilateral screening mammogram THIN PREP TIS PAP AND HR HPV DNA Bilateral screening mammogram CANCELED: DEXA bone density 2. Other screening mammogram Z12.31 Bilateral screening mammogram Bilateral screening mammogram 3. 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 Patient states she is continuing to be worked up for her thoracic back pain. Repeat US given for known ovarian cyst. Pap was obtained without difficulty and patient given mammogram order to have scheduled/obtained. Orders Placed This Encounter Procedures Bilateral screening mammogram Follow Up: Patient is to return in one year for annual unless needed otherwise. Documented by Yola Hylton LPN on behalf of: SYBIL Ortiz documented in this encounter [facility] 05-02-2024 History and physical note Note Date/Time May 02, 2024 10:18am [facility] [address] [place] [address] Gastroenterology H&P Signed Patient: Yuri Gallagher MR#: [id number] : 1970 Acct:[id number] Age/Sex: 53 / F Adm Date: 4 Loc: Room: Type: [facility] Attending Dr: Lady Vásquez DO Copies to: Lady Vásquez, DO Genevieve Feng APRN, SUPERVISORY HISTORIAN~ Date of Service: 05/02/2024 HISTORY & PHYSICAL: Patient's history with special attention to the cardiovascular, pulmonary systems and the current problem was reviewed with the patient immediately prior to the procedure. Present medications and doses reviewed in the EMR. Allergies and pertinent laboratory tests were also reviewedat this time in the EMR. The physical examination, as below, was then performed. Indication, assessment and HPI: 53-year-old female who presents for EGD for upper abdominal pain. Family history of GI malignancy? No PHYSICAL EXAMINATION General appearance: cooperative, NAD Skin: No jaundice, no rash or lesions Head: NCAT Eyes: Anicteric Neck: Supple Lungs: Normal respiratory effort, no use of accessory muscles Abdomen: Soft, nondistended Neuro: No focal deficits, Ox3. REVIEW OF SYSTEMS Constitutional: Denies malaise, fevers Cardiovascular: Denies chest pain, palpitations Respiratory: Denies shortness of breath, wheezing Gastrointestinal: As per HPI Genitourinary: Denies dysuria, polyuria Musculoskeletal: Denies joint swelling, joint stiffness Neurological: Denies confusion, numbness, tingling Endocrine: Denies fatigue Written informed consent obtained from the patient. Risks (including but not limited to perforation, infection, bloating, bleeding, need for emergent surgeryand loss of life), benefits and alternatives explained and questions answered. The patient verbalized understanding. Based on history patient is an appropriate candidate for the procedure. Lady Vásquez DO Present medication and doses reviewed in the EMR Documented By: Lady Vásquez DO 05/02/24 1018 Signed By: <Electronically signed by Lady Vásquez DO> 05/02/[address] [facility] Work Phone: [phone] [facility] History of Present illness Narrative* Cheyanne Leal RN - 04/25/2024 2:20 PM EDT Radiology Service Progress Note DATE OF SERVICE: April 25, 2024 TIME: 12:53 PM PATIENT WEIGHT: 134LBS PATIENT IDENTITY VERIFICATION COMPLETED USING TWO (2) STANDARD IDENTIFIERS: Name and Date of confirmed by patient verbally. FALL SCREENING: Has the patient had 2 falls in the last year or 1 fall with injury or currently using an Ambulatory Assistive Device (Walker, Cane, Wheelchair, Crutches, etc.)? No PATIENT GENDER DATA: Female. status: : No status: NO. ALLERGIES: Reviewed and unchanged CONTRAST ALLERGY: No EXAM: CT -CONTRAST INDUCED NEPHROPATHY RISK FACTORS: Not applicable CREATININE: Creatinine Date Value Ref Range Status 04/10/2024 0.78 0.58 - 0.96 mg/dL Final Estimated Glomerular Filtration Rate Date Value Ref Range Status 04/10/2024 91 >=60 mL/min/1.73m Final Comment: Estimated Glomerular Filtration Rate (eGFR) is calculated using the 2020 CKD-EPI creatinine equation. This equation utilizes serum creatinine, sex, and age as parameters. The creatinine assay has traceable calibration to isotope dilution- mass spectrometry. Refer to KDIGO guidelines for clinical interpretation. In patients with unstable renal function, e.g. those with acute kidney injury, the eGFRmay not accurately reflect actual GFR. P.O.C.T. RESULTS: POC done: Yes, See Lab Tab April 25, 2024 TREATMENT: N/A and No Hydration needed. IV SITE: Ambulatory: A peripheral IV was started in the Right antecubital site with a Angio cath: 22 gauge. and A Saline lock was inserted per protocol IV SITE APPEARANCE: Clean,Dry and Intact SIGNATURE: Cheyanne Leal RN PATIENT NAME: Socorro Gallagher DATE: April 25, 2024 TIME: 12:53 PM * Raquel Samaniego RT(R) - 04/25/2024 2:20 PM EDT Radiology Service Progress Note PATIENT NAME: Socorro Gallagher DATE OF SERVICE: April 25, 2024 TIME: 2:16 PM PATIENT IDENTITY VERIFICATION COMPLETED USING TWO (2) IDENTIFIERS: Name and Date of confirmedby patient verbally and Name and Date of confirmed by identification band. FALL SCREENING: Has the patient had 2 falls in the last year or 1 fall with injury or currently using an Ambulatory Assistive Device (Walker, Cane, Wheelchair, Crutches, etc.)? No PATIENT GENDER DATA: Female. status: : No status: NO. PATIENT RELEVANT IMPLANT DATA REVIEWED: Yes PATIENT PRESENTS WITH AN IMPLANTABLE OR ATTACHED CHIEF MINISTER: No RADIOLOGY DEPARTMENT: CT; Exam(s) Completed: Abdomen/Pelvis PERIPHERAL IV DATA: Site assessment: Clean,Dry and Intact, Site disposition Discontinued SIGNED BY: RT Lisa(R) April 25, 2024 2:16 PM documented in this encounterBrown [facility]10-17-2024 NoteHNO ID: [id number] Author: CHEYANNE LEAL RN Service: Nursing Author Type: Registered Nurse Type: Progress Notes Filed: 04/25/2024 13:02 Note Text: Radiology Service Progress Note DATE OF SERVICE: April 25, 2024 TIME: 12:53 PM PATIENT WEIGHT: 134LBS PATIENT IDENTITY VERIFICATION COMPLETED USING TWO (2) STANDARD IDENTIFIERS: Name and Date of confirmed by patient verbally. FALL SCREENING: Has the patient had 2 falls in the last year or 1 fall with injury or currently using an Ambulatory Assistive Device (Walker, Cane, Wheelchair, Crutches, etc.)? No PATIENT GENDER DATA: Female. status: : No status: NO. ALLERGIES: Reviewed and unchanged CONTRAST ALLERGY: No EXAM: CT -CONTRAST INDUCED NEPHROPATHY RISK FACTORS: Not applicable CREATININE: Creatinine Date Value Ref Range Status 04/10/2024 0.78 0.58 - 0.96 mg/dL Final Estimated Glomerular Filtration Rate Date Value Ref Range Status 04/10/2024 91 >=60 mL/min/1.73m? Final Comment: Estimated Glomerular Filtration Rate (eGFR) is calculated using the 2020 CKD-EPI creatinine equation. This equation utilizes serum creatinine, sex, and age as parameters. The creatinine assay has traceable calibration to isotope dilution-mass spectrometry. Refer to KDIGO guidelines for clinical interpretation. In patients with unstable renal function, e.g. those with acute kidney injury, the eGFR may not accurately reflect actual GFR. P.O.C.T. RESULTS: POC done: Yes, See Lab Tab April 25, 2024 TREATMENT: N/A and No Hydration needed. IV SITE: Ambulatory: A peripheral IV was started in the Right antecubital site with a Angio cath: 22 gauge. and A Saline lock was inserted per protocol IV SITE APPEARANCE: Clean,Dry and Intact SIGNATURE: Cheyanne Leal RN PATIENT NAME: Socorro Gallagher DATE: April 25, 2024 TIME: 12:53 [facility]10-17-2024 NoteHNO ID: [id number] Author: RAQUEL SAMANIEGO RT(R) Service: ? Author Type: Technologist Type: Progress Notes Filed: 04/25/2024 14:17 Note Text: Radiology Service Progress Note PATIENT NAME: Socorro Gallagher DATE OF SERVICE: April 25, 2024 TIME: 2:16 PM PATIENT IDENTITY VERIFICATION COMPLETED USING TWO (2) IDENTIFIERS: Name and Date of confirmed by patient verbally and Name and Date of confirmed by identification band. FALL SCREENING: Has the patient had 2 falls in the last year or 1 fall with injury or currently using an Ambulatory Assistive Device (Walker, Cane, Wheelchair, Crutches, etc.)? No PATIENT GENDER DATA: Female. status: : No status: NO. PATIENT RELEVANT IMPLANT DATA REVIEWED: Yes PATIENT PRESENTS WITH AN IMPLANTABLE OR ATTACHED CHIEF MINISTER: No RADIOLOGY DEPARTMENT: CT; Exam(s) Completed: Abdomen/Pelvis PERIPHERAL IV DATA: Site assessment: Clean,Dry and Intact, Site disposition Discontinued SIGNED BY: Raquel Samaniego, RT(R) April 25, 2024 2:16 [facility]10-02-2024 NoteHNO ID: [id number] Author: KYLE ZHU MD Service: ? Author [...] organomegaly Extremities: no cyanosis or edema CBC: @LASTLABX(WBC:2,HB,MCV,PLT,neut,lymphp])@ CMP: No results found for: ALKPHOS , [...] by others. Kyle Zhu MD Date: [facility] 10[facility] History of Present illness Narrative* yKle Zhu MD - 04/10/2024 1:36 PM EDT [place] Consultation requested by Dr. mesa [...] organomegaly Extremities: no cyanosis or edema CBC: @LASTLABX(WBC:2,HB,MCV,PLT,neut,lymphp])@ CMP: No results found for: ALKPHOS , [...] Date: April 10, 2024 documented in this encounterBrown [facility] Hospital09-09-2024 NotePatient: Socorro Gallagher Procedure Information Date/Time: 03/18/24 1030 Procedure: Coronary angiography (Left) - PC APPROVED w possible PCI Location: [facility] PLUNGER SHOVEL OPERATOR 3 / [facility] (Cath) Providers: Seda Loza [...] discussed with attending and fellow. Additional [facility]sReg[facility]08-26-2024 Note caseUnK[facility] NoteCardiology Clinic Note Chief Complaint: New patient for chest pain [...] hesitate to contact cardiolog (more content not included)...[facility]12-13-2023 History of Present illness Narrative* Marsha Landa APRN.[facility] - 06/21/2023 8:00 AM EST Images from the original note were not [...] under the care of pain management in [facility] where she recently underwent a right gluteal nerve block without improvement in symptoms. She states that at postinjection follow-up she was offered a piriformis injection but is reluctant to proceed. She reports that she recently had an EMG completed. EMG results were not available at time of today's appointment. 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 Nonsmoker Pain localized to right buttocks Pain [...] prednisone Physical Therapy: Spring 2022 attended at [facility] , she states sessions were not [...] Foot-Right Back-Lower radiates to R leg Description: Aching;Burning;Dull;Numbness;Tingling Burning Numbness and tingling on R leg [...] Normal Limits Logroll: Negative Tinel's test: Negative Charleston's test: Negative Prone extension Negative Neuro Tests: [...] 2023 TIME: 7:51 AM documented in this encounterBrown Memorial Hospital12-13-2023 NoteHNO ID: [id number] Author: Marsha Landa APRN.SUPERVISORY HISTORIAN Service: ? Author Type: Nurse Practitioner Type: [...] under the care of pain management in [facility] where she recently underwent a right gluteal nerve block without improvement in symptoms. She states that at postinjection follow-up she was offered a piriformis injection but is reluctant to proceed. She reports that she recently had an EMG completed. EMG results were not available at time of today's appointment. 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 : Denies chapa (more content not included)...[facility] 03-20-2023 History of Present illness Narrative* Oscar Melgar MD - 03/20/2023 8:56 AM EDT Ms. Socorro Gallagher is a 52 year [...] of the different procedures. I discussed the differentliposuction modalities, the difference between traditional tumescent liposuction vs. ultrasonic liposuction vs. power-assisted liposuction vs. laser liposuction. I discussed the difference between liposuction alone vs. Skin-excision surgery, eg, abdominoplasty.I noted that there will be more comprehensive [...] flanks. Oscar Melgar MD documented in this encounterBrown Memorial Hospital04-13-2023 NoteCONSULTATION CONSULTATION DATE: 10/20/2022 TO: Agustin Mortensen M.D. [...] our patients to inform us about any exkx-cxq-uiyeets medications or herbal remedies/nutritional supplements/alternative remedies. 2. [...] and treatment options with their primary care provider.[facility] [id number] NotePROCEDURE: XR ANKLE RT MIN 3 VIEWS, XR [...] Electronically authenticated by: CHRISTINA ROBLERO Date: 2022-10-11 11:33[facility] [id number] NotePROCEDURE: XR ANKLE RT MIN 3 VIEWS, XR [...] Electronically authenticated by: CHRISTINA ROBLERO Date: 2022-10-11 11:33[facility] [id number] Evaluation note* Diagnosis Onset Date Resolution Status Anxiety January 06, 2015 acute Anxiety January 06, 2015 acute Palpitations acute Screening for lipid disorders acute Screening for metabolic disorder acute Screening, deficiency anemia, iron acute Wellness examination acute [facility] Work Phone: evaluation note* Diagnosis Encounter for cosmetic surgery- Primary Other plastic surgery for unacceptable cosmetic appearance [facility] noteNo assessment information availableSt. [facility] Work Phone: evaluation note* Diagnosis Right leg pain- Primary Pain in limb Numbness and tingling of right lower extremity Piriformis syndrome, right documented in this encounter [facility] note* Diagnosis Onset Date Resolution Status Chest tightness acute Dizziness acute Family history of heart dise ase in male family member before age 55 acute Palpitations acute [facility] Work Phone: evaluation note* Diagnosis Onset Date Resolution Status Chest tightness acute Dizziness acute Family history of heart dise ase in male family member before age 55 acute Palpitations acute Abdominal pain acute Bloating acute [facility] Work Phone: evaluation note* Diagnosis Onset Date Resolution Status Chest tightness acute Dizziness acute Family history of heart dise ase in male family member before age 55 acute Palpitations acute Abdominal pain acute Bloating acute Anxiety January 06, 2015 acute Chest wall pain acute Myocardial bridge acute UTI (urinary tract infection) acute [facility] Work Phone: evaluation note* Diagnosis Abdominal pain, unspecified abdominal location- Primary documented in this encounter [facility] note* Diagnosis Abdominal pain, unspecified abdominal location documented in this encounter [facility] note* Diagnosis Onset Date Resolution Status Chest tightness acute Dizziness acute Family history of heart dise ase in male family member before age 55 acute Palpitations acute Abdominal pain acute Bloating acute Anxiety January 06, 2015 acute Chest wall pain acute Myocardial bridge acute UTI (urinary tract infection) acute Upper abdominal pain acute [facility] Work Phone: evaluation note* Diagnosis Well woman exam with routine gynecological exam Routine gynecological examination Other screening mammogram Surgical menopause documented in this encounter [facility] Summary Purpose Family History Relationship Condition Age at Onset Recorded Date/T [place] father Unknown Heart disease Unknown Advance Directives Advance Directive Response Recorded Date/ Time Advance Directives No December 03 0 3:22pm Advance Directive Response Recorded Date/ Time [...] pain under ribs follow up after testing N39.[address]/thickening small int Reason for Visit Chest tightness Dizziness Family history of heart disease in male family member before age 55 Palpitations Abdominal pain Bloating Anxiety Chest wall pain Myocardial bridge UTI (urinary tract infection) Upper abdominal pain Chief Complaint no appatite, no ener gy, not feel well dicuss more about pain under ribs follow up after testing N39.0 frequency, burning Abnormal Ct/thickening small int thoracic neuritis upper abdominal pain upper abdominal pain Reason for Visit Chest tightness Dizziness Family history of heart disease in male family member before age 55 Palpitations Abdominal pain Bloating Anxiety Chest wall pain Myocardial bridge UTI (urinary tract infection) Upper abdominal pain Reason for Referral Specialty Diagnoses / Procedures Referred By Contac t Referred To Contact CT IMAGING Diagnoses Abdominal pain, unspecified abdominal location Procedures CT ENTEROGRAPHY W IVCON CT ABD & PELVIS W/CONTRAST Kyle Zhu MD [address] [place] [id number] [facility] [place] [address] Referral ID Status Reason Start Date Expiration Date Visits Requested Visits Authorized [id number] Authorized Auto-Generat ed Referral 04/10/2024 05/10/2025 1 1 Referral ID Status Reason Start Date Expiration Date V isits Requested Visits Authorized [id number] Closed Auto-Generate d Referral 04/10/2024 05/10/2025 1 1 Additional Source Comments INFORMATION SOURCE (unrecogn ized section and content) DATE CREATED AUTHOR 09/08/2020 P[facility] DATE CREATED AUTHOR AUTHOR'S ORGANIZ ATION 10/27/2022 [facility] DATE CREATED AUTHOR AUTHOR'S ORGANIZ ATION 04/06/2024 [facility] EPIC DATE CREATED AUTHOR AUTHOR'S ORGANIZ ATION 04/09/2024 [facility] DATE CREATED AUTHOR AUTHOR'S ORGANIZ ATION 04/28/2024 [facility] DATE CREATED AUTHOR AUTHOR'S ORGANIZ ATION 05/08/2024 [facility] Source Comments (unrecognize d section and content) In the event this informatio n is protected by the Federal Confidentiality of Alcohol and Drug Abuse Patient Records regulations: The Federal rules restrict any use of the information to criminally investigate or prosecute any alcohol or drug abuse patient.[facility] HospitalIn the event this information is protected by the Federal Confidentiality of Alcohol and Drug Abuse Patient Records regulations: The Federal rules restrict any use of the information to criminally investigate or prosecute any alcohol or drug abuse patient.[facility] HospitalIn the event this information is protected by the Federal Confidentiality of Alcohol and Drug Abuse Patient Records regulations: The Federal rules restrict any use of the information to criminally investigate or prosecute any alcohol or drug abuse patient.[facility] Memorial HospitalIn the event this information is protected by the Federal Confidentiality of Alcohol and Drug Abuse Patient Records regulations: The Federal rules restrict any use of the information to criminally investigate or prosecute any alcohol or drug abuse patient.[facility] HospitalIn the event this information is protected by the Federal Confidentiality of Alcohol and Drug Abuse Patient Records regulations: The Federal rules restrict any use of the information to criminally investigate or prosecute any alcohol or drug abuse patient.[facility] HospitalIn the event this information is protected by the Federal Confidentiality of Alcohol and Drug Abuse Patient Records regulations: The Federal rules restrict any use of the information to criminally investigate or prosecute any alcohol or drug abuse patient.[facility] Reason for Visit (unrecogniz ed section and content) Reason Comments Radiology CT Specialty Diagnoses / Procedures Referred By Contac t Referred To Contact CT IMAGING Diagnoses Abdominal pain, unspecified abdominal location Procedures CT ENTEROGRAPHY W IVCON CT ABD & PELVIS W/CONTRAST Kyle Zhu MD [address] [place] [id number] Imaging [facility]95 Referral ID Status Reason Start Date Expiration Date V isits Requested Visits Authorized [id number] Closed Auto-Generate d Referral 04/10/2024 05/10/2025 1 1 Reason Comments Consult Reason Comments New Patient Low Back Pain Reason Comments New Patient Per CT small bowel p olyp Reason Comments Gynecologic Exam Care Teams (unrecognized sec tion and content) [...] Member Role Status Dates Genevieve Feng APRN CALCIMINER-C Primary Care Provider, Attending Provider Active Start: February 19, 2024 End: February 19, 2024 Team Status: Inactive Member Role Status Dates Genevieve Feng APRN CALCIMINER-C Primary Care Provider, Attending Provider Active Start: February 26, 2024 End: February 26, 2024 Team Status: Active Member Role Status Dates Gneevieve Feng APRN CALCIMINER-C Primary Care Provider Active Start: March 132023 Seda Loza MD Attending Provider Active Start: March 13, 2024 Team Status: Inactive Member Role Status Dates Genevieve Feng APRN CALCIMINER-C Primary Care Provider, Attending Provider Active Start: March 21, 2024 End: March 21, 2024 Team Status: Active Member Role Status Dates Genevieve Feng APRN CALCIMINER-C Primary Care Provider Active Start: March 04, 2024 Sandeep Mcclelland DO Attending Provider Active Sta rt: March 04, 2024 Team Status: Inactive Member Role Status Dates Genevieve Feng APRN CALCIMINER-C Primary Care Provider, Attending Provider Active Start: April 02, 2024 End: April 02, 2024 Team Status: Inactive Member Role Status Dates Genevieve Feng APRN CALCIMINER-C Attending Provider Act star Start: April 02, 2024 End: April 02, 2024 Team Status: Inactive Member Role Status Dates Genevieve Feng APRN CALCIMINER-C Attending Provider Active Start: March End: April 02, 2024 PHYSICIAN NO FAMILY Primary Care Provider Active Start: April 02, 2024 End: April 02, 2024 Team Status: Inactive Member Role Status Dates Lady Vásquez DO Attending Provider Active St art: May 01, 2024 End: May 01, 2024 Genevieve Feng APRN CALCIMINER-C Primary Care Provider Active Start: April End: May 01, 2024 Team Status: Active Member Role Status Dates Genevieve Feng APRN CALCIMINER-C Primary Care Provider Active Start: May 02, 2024 Jose Guadalupe Costa MD Attending Provider Acti ve Start: May 02, 2024 Team Status: Inactive Member Role Status Dates Genevieve DAGMAR Feng CALCIMINER-C Primary Care Provider Active Start: April End: May 02, 2024 Lady Vásquez DO Attending Provider Active St art: May 02, 2024 End: May 02, 2024 Team Status: Active Member Role Status Dates Genevieve DAGMAR Feng CALCIMINER-C Primary Care Provider Active Start: April Lady Vásquez DO Attending Provider, Other Provider Active Start: May 02, 2024 Team Status: Inactive Member Role Status Dates Genevieve DAGMAR Feng CALCIMINER-C Primary Care Provider Active Start: May 02, 2024 End: May 02, 2024 Jose Guadalupe Costa MD Attending Provider Acti ve Start: May 02, 2024 End: May 02, 2024 Housekeeping Manager Relationship Specialty Start Date End Date Agustin Mortensen MD [address] [place] [address] PCP - General Family Medicine 03/16/23 Housekeeping Manager Relationship Specialty Start Date End Date Agustin Mortensen MD [address] [place] [address] PCP - General Family Medicine 03/16/23 Goals (unrecognized section and content) Goals may [...] BE BASED ON THE PRIMARY CLINICAL RECORDS. [facility] [employer] [facility]. provides no warranty or guarantee of the accuracy or completeness of information in this document.
[2024-05-22 12:12] LABS: Age Gdln ACOG Testing Note (.); HPV Aptima Negative (Negative); IGP, Aptima HPV, rfx 16/18,45 Note (.)
== END 2024-05-13 22:03 | disposition home or self-care (01) ==
LOC: LAB 22:02
PROVIDERS: PCP Nurse Practitioner Family; Visit Provider Physician Assistant
DX: Z01.419 Encounter for gynecological examination (general) (routine) without abnormal findings (principal)
CPT/HCPCS: 87624; 88175

== ENCOUNTER 2024-05-20 10:52 | Outpatient (OUT) | payer OTHER, SELFPAY ==
--- NOTE | 2024-05-20 10:54 | US_ITS ---
The [address] [address] Patient Name: YURI SMITH MRN: [id number] date: 1970 Sex: F Assigned Patient Location: [facility] Current Patient Location: Accession/Order Number: [id number] Exam Date: 05/20/2024 10:58 Report Date: 05/21/2024 15:18 At the request of: ROSETTA CHEN Procedure: US pelvis w/ transvaginal EXAMINATION: US pelvis w/ transvaginal HISTORY: Adnexal cyst N94.9 COMPARISON: 02/29/2024 FINDINGS: The uterus is surgically absent The right ovary is not visualized The left ovary is only visualized on transabdominal images measuring 4.8 x 4.1 x 3.8 cm. 4.1 x 2.8 x 3.2 cm area of anechoic echogenicity a simple cyst is favored No free fluid US/US pelvis w/ transvaginal IMPRESSION: 4.1 cm left ovarian cyst Electronically authenticated by: FLORESITA ROSE Date: 05/21/2024 15:18
--- OUTSIDE RECORDS SUMMARY | 2024-05-20 11:10 | XMS_ITS | CCD ---
Author Organization [facility] Care Team Providers Care Auto Bumper Mechanic Name Role Phone DR AGUSTIN MORTENSEN Primary Care Unavailable LAKSHMIPATHY ., NARENDRANATH Admitting Mariella vailable LAKSHMIPATHY ., NARENDRANATH Consulting Mariella vailable LAKSHMISHMAU ., JOSE GUADALUPE Attending Mariella brookilable LORRI BERRY Admitting Unavailable LORRI BERRY Attending Unavailable DR CHRISTINA ROBLERO Consulting Unavailable DR AGUSTIN MORTENSEN Primary Care Unavailable LORRI BERRY Consulting Unavailable Unavailable Primary Care Provider UnavailMD Agustin Ramirez Primary Care Provider MD Jose Guadalupe Costa Attending Provider Unavailable DAGMAR Feng Attending Provider [phone] ALGHOJIMBOANI, MOHAMAD Admitting Unavailable ANA LILIA DOUGLASSAMAD Attending Unavailable ALGHOTHANIANA LILIAAMAD Referring Unavailable ALGHOTHANI MOHAMAD Attending Unavailable SEDA DOUGLASS Attending Unavailable Unavailable Primary Care Provider Unavailfide DOWNS FAMILY, PHYSICIAN Primary Care Provider Unava ilable DAGMAR Feng Primary Care Provider MD Jose Guadalupe Costa Attending Provider Unavailable Thlaia DO Lady Isidro Attending Provider [phone] Agustin Mortensen MD Primary Care Provider [phone] Devin, Kyle Referring Unavailable Alexandra Zhut Attending Unavailable MARSHA LANDA Attending Unavailable MARSHA LANDA Attending Unavailable Devin Kyle Referring Unavailable Devin Kyle Referring Unavailable Genevieve Feng Primary Care Unavailable Thalia Lady L Admitting Unavailable Ly Lady L Attending Unavailable NO FAMILY, PHYSICIAN Primary Care Unavailable Genevieve Feng Admitting Unavailable Genevieve Feng Attending Unavailable Genevieve Feng Primary Care Unavailable Lakshmipathy, Narendranath Admitting Unava ilable Lakbabarmijenay, Narendranath Attending Unava ilBETHANY Hernandez Attending Unavailable LINDA CARRILLO Referring Unavailable LINDA CARRILLO Attending Unavailable LINDA CARRILLO Referring Unavailable BLANKA AGUIRRE Attending Unavailable BLANKA AGUIRRE Referring Unavailable LINDA CARRILLO Attending Unavailable BLANKA SHAW Attending Unavailable BLANKA SHAW Referring Unavailable Medications Current Medications Medication Drug Class(es) Dates Sig (Normalized) Sig (Original) aspirin 81 mg delayed release oral tablet (18 sources) Platelet Aggregation Inhibitor, Nonsteroidal Anti-inflammatory Drug Start: 03-21-2024 aspirin 81 MG EC tablet Daily 03/21/2024 Active baclofen 5 mg oral tablet (20 sources) gamma-Aminobutyric Acid-ergic Agonist Start: 05-01-2024 take [...] 04/11/2024 Active estradiol 0.5 mg oral tablet (15 sources) Estrogen Start: 09-14-2023 End: 09-27-2024 take [...] 04/11/2024 Active LORazepam 0.5 mg oral tablet (20 sources) Benzodiazepine Start: 01-30-2023 LORazepam (ATI VAN) 0.5 mg Take 0.5 mg by mouth. 01/30/2023 Active take 1 tablet by alexei th every six hours as needed LORazepam (Ativan) 0.5 MG tablet Take 0. 5 mg by mouth every 6 (six) hours if needed Active Comment on above: Take 0.5 mg by mouth . 24 hr metoprolol succinate 25 mg extended release oral tablet (3 sources) beta-Adrenergic Jose Start: 03-18-20 End: 05-13-20 24 take 1 tablet by mouth every twenty-four hours in the morning metoprolol succinate XL (Toprol-XL) 25 MG 24 hr tablet Take 25 mg by mouth in the morning. 03/18/2024 05/13/2024 Discontinued (Other) pantoprazole 40 mg delayed release oral tablet (13 sources) Proton Pump Inhibitor Start: 03-22-20 End: 10-22-19 take 1 tablet by mouth before mealtime pantoprazole (ProtoNix) 40 MG EC tablet Indications: Gastroesophageal reflux disease, unspecified whether esophagitis present Take 1 tablet (40 mg) by mouth in the morning. Take before meals. 90 tablet 1 04/24/2024 10/21/2024 Active predniSONE 50 mg oral tablet (1 source) Start: 03-16-20 End: 03-21-20 predniSONE (DELTASONE) 50 mg Take 50 mg by mouth. 0 03/16/2023 03/21/2023 Active Comment on above: Take 50 mg by mouth. rosuvastatin calcium 20 mg oral tablet (3 sources) HMG-CoA Reductase Inhibitor Start: 03-18-20 End: 05-13-20 take 1 tablet by mouth in the morning rosuvastatin (Crestor) 20 MG tablet Take 20 mg by mouth in the morning. 03/18/2024 05/13/2024 Discontinued (Other) tretinoin 0.5 mg/ml topical lotion (5 sources) Retinoid Start: 10-26-19 Tretinoin (Altreno) 0.05 % lotion Indications: Rhytides Apply thin [...] Discontinued 1 TAB PO Twice daily 14 April 02, 2024 12:00am May 01, 2024 9:04am Problems Problem Classification Problem Date Documented Da te Episodic/Chronic Abdominal pain (20 sources) Abdominal pain; Translations: [Unspecified abdominal pain] Onset: 04-10-2024 02-26-2024 Episodic Anxiety disorders (18 sources) Anxiety; [...] Spondylosis; intervertebral disc disorders; other back problems (3 sources) Thoracic spondylosis; Translations: [Spondylosis without myelopathy or radiculopathy, thoracic region] 05-14-2024 Chronic Spondylosis; intervertebral disc disorders; other back problems (3 sources) Radiculopathy, lumbar region; Translations: [Radiculopathy, thoracic region] Onset: 10-26-2022 05-17-2024 Episodic Urinary tract infections (13 sources) Urinary tract infectious disease; Translations: [Urinary tract infection, site not specified] Onset: 04-02-2024 04-02-2024 Episodic Results Test Name Value Interpretation Reference Range Facility [facility] 05-14-2024 CN Office Visit ([facility]) LUISSOCORRO Isidro ([id number]) 1970 F Date Time Provider Department 05/14/24 3:30 PM MARSHA LANDA [facility] During your visit today, we recorded the following information about you: Weight 64 kg Marsha Landa APRN.[facility] 05/14/2024 4:32 PM Signed Spine Care Path Low Back Pain - Chronic (> 12 weeks) Initial Exam SUBJECTIVE HISTORY OF PRESENT ILLNESS: Socorro L Gallagher is a 53 year old female who presents with a chief complaint of epigastric pain and thoracic radiculopathy. Patient presents with pain in her epigastric region x 3 months. Denies accident/injury Prior to today's appointment she has been under the care of her mobile paint specialist with MRI thoracic spine imaging completed in regards to thoracic radiculopathy. She states that she is also been seen by GI and underwent endoscopy where she was advised that she has GERD. Patient's Natalya is present with patient consent. States has seen GI and PM : states that she was diagnosed with GERD. 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 Numbness/Tingling: Denies She denies loss of bowel or bladder control, denies dexterity Felty's, denies imbalance. Pain rated 6/10 Pain worse with sitting , walking greater than 2 miles Pain improved with rest, laying on her side, Lorazepam, baclofen Interventions: GI scope , medications, Medications:Baclofen , ibuprofen, naproxen , prednisone Pantoprazole. Buspar., Lorazepam Physical Therapy: None Treating Physicians: Genevieve Feng [facility] - PCP Dr Melgar - Plastic Surgery Linda Carrillo PA-C - OBGYN Dr. Costa - Pain management History of Spine Injections/Surgery: 04/25/2023 Gluteal nerve injection, diagnostic - no relief Other Issues Addressed at the Visit Today: None. Precipitating Event: None PAIN EVALUATION 05/13/2024 1009 05/14/2024 1516 Pain Level: 4 6 worse at 8 Pain Location: Abdomen-Mid Upper Back-Upper Description: Aching;Burning;Cramp ing;Radiating;Tightn ess Sharp;Cramping;Tight ness;Stabbing Duration Amount of Time: 3 3 Duration Units: Months Months Frequency: Continuous Continuous Intervention/Comfort measure: Medication;Repositio n;Pillow support -- Comments: in rib area, under across chest, sometimes down the sides. very mild when i wake up, if i walk it helps as long as its not too long, if i rest during day can keep pain minimal -- Litigation: No Workers' Compensation: No YELLOW AND BLUE FLAGS YES-Neg Attitude; Back Pain is Disabling YES-Avoiding Activity (for Fear of Pain) YES-Depression or Anxiety Disorders No-Social Problems No-Substance Use Disorder No-Job Dissatisfaction No-Financial Disincentives Patient Entered Questionnaires 06/19/2023 05/13/2024 Spine Questions Pain Location: Other Other Pain Duration: 1 to 5 years Pain over last 6 months: Every day or nearly every day in the past 6 months Symptoms from neck/cervical spine: No No Employment Status: Working now Involved in law suit/legal claim: No 06/19/2023 Spine Red Flags Any type of cancer: No Unexplained fever: No Bowel or bladder disfunction: No Unintentional weight loss: No Osteoporosis: No PROMIS Score Percentiles 06/19/2023 05/13/2024 Physical Health Physical Function Percentile 38 10 Sleep Percentile 54 34 Fatigue Percentile 79 46 Pain Interference Percentile 18* 5 06/19/2023 05/13/2024 PROMIS SOCIAL ROLE SCORE Social Role Satisfaction Percentile 27* 31 03/16/2023 06/19/2023 04/09/2024 PROMIS Global Health Scale Physical Health Percentile 66 66 22* Mental Health Percentile 34 34 26* Percentiles provide an indication of how the patient's score ranks in relation to the general population. Higher percentile rankings indicate better function/quality of life. 50th percentile is the average of the general population and indicates half of respondents had a worse score. Depression Screenin06/19/2023 PHQ-9 Score 4 06/19/2023 PHQ-9 Self-harm Question Question 9 Not at all PHQ-9 Self-Harm [...] file. No past surgical history on file. Social History Tobacco Use Smoking status: Never Smokeless tobacco: Never Substance Use Topics Alcohol use: Not Currently Drug use: Never No family history on file. ALLERGIES (more content not included)... [facility] SOCORRO GALLAGHER ([id number]) 1970 F Date Time Provider Department 05/13/24 MARSHA LANDA [facility] During your visit today, we recorded the following information about you: Genevieve Barbosa 05/13/2024 12:08 PM Signed Socorro is calling Marsha Landa APRN.JANITOR HEAD today to ask if you can see her MRI results from [facility], which are for tomorrow's appointment. They told her they were sent to the [facility], but when she tries to call she just gets disconnected. Please advise. Patient has been identified by name and birthdate. Duration of symptoms: N/A Person calling: self Call patient at: at home [phone] (home) [phone] (cell) Was an appointment scheduled: No Closing statement: Results or non-symptom based questions: Thank you for calling [facility], your call will be returned within the next business day. Dana Duffy RN 05/13/2024 12:31 PM Signed Neuro SPINE CARE COORDINATION EDEL NOTE Spoke with patient and advised her that we don't have any Thoracic MRI images or report yet and to get a CD from [facility] to bring to the appointment with Marsha tomorrow. She verbalized understanding. I also sent an email to the [facility] to see if they have anything pending for the patient. Dana Lozano RN 05/13/2024 12:56 PM Signed Neuro SPINE CARE COORDINATION EDEL BASS Called patient to let her know that we received the thoracic MRI images from 05/02 along with the report. They have been uploaded to her chart. Allergies As of Date: 05/13/2024 (No Known Allergies) Date Reviewed: 04/25/2024 Reviewed by: Cheyanne Toribio RN - Fully Assessed Reason for Visit: Patient Question [1477] Prescriptions as of 05/13/2024 - aspirin, enteric coated (ASPIRIN, ENTERIC COATED) 81 mg EC tablet Take 81 mg by mouth. - busPIRone (BUSPAR) 5 mg tablet Take 5 mg by mouth. - pantoprazole DR (PROTONIX) 40 mg tablet Take 40 mg by mouth. - baclofen 10 mg tablet TAKE 1/2 TABLET BY MOUTH 3 TIMES A DAY - LORazepam (ATIVAN) 0.5 mg Take 0.5 mg by mouth. Problem List As Of Date: 05/13/2024 (None) Encounter Status:Closed by DANA LOZANO on 05/13/24 Normal [facility] Pathology Request for Lab Co rpon 05-02-2024 Pathology Request for Lab Moy Normal [facility] Comment on above: Order Comment: PATHO LOGY GI SPECIMEN Result Comment: See report. Scanned copy available in EMR. PERFORMED BY: [place] [address] PATHOLOGIST SENIOR FIRMWARE ENGINEER ANUSHA ROMO M.D. Performed By: #### P ATH TO [facility] #### [address] XR pre/post mri xrayon 05-02 XR pre/post mri xray [facility] [place] [address] MRI Report Signed Patient: Yuri Gallagher MR#: [id number] : 1970 Acct:[id number] Age/Sex: 53 / F ADM Date: 05/02/24 Loc: [facility] Room: Type: [facility] Attending Dr: Jose Guadalupe Costa MD Copies to: Jose Guadalupe Costa Ordering Provider: Jose Guadalupe Costa Date of Service: 05/02/24 MR/MR thoracic spine wo con: THORACIC NEURITIS ([id number]) XR/XR pre/post mri xray: THORACIC NEURITIS MR [...] spine as above. Impression dictated by: Austin Marhs M.D.05/02/2024 12:53 PM Dictation Location: [place] [address] Transcribed By: [facility] 05/02/24 1253 Dictated By: Austin Marsh II, MD 05/02/24 1241 Signed By: 05/02/24 1253 Normal [facility] CT ENTEROGRAPHY W IVCONon CT ENTEROGRAPHY W IVCON * * *Final Repor t* * * DATE OF EXAM: Apr 25 2024 2:22PM [facility] 0545 - CT ENTEROGRAPHY W IVCON / [...] unilocular left adnexal cyst, stable since 03/23/2023. Hepatologist: [facility] Transcribe Date/Time: Apr 25 2024 2:55P Dictated by : ODALIS GALAVIZ MD This examination was interpreted and the report reviewed and electronically signed by: ODALIS GALAVIZ MD on Apr 25 2024 3:13PM EST [id number] CN Normal [facility] CT Small bowel W contrast PO and W contrast Lata 04-25-2024 IMPRESSION: No active small bowel inflammation or acute process in the abdomen/pelvis. 3.6 cm unilocular left adnexal cyst, stable since 03/23/2023. Hepatologist: MARISOL Transcribe Date/Time: Apr 25 2024 2:55P Dictated by : ODALIS GALAVIZ MD This examination was interpreted and the report reviewed and electronically signed by: ODALIS GALAVIZ MD on Apr 25 2024 3:13PM [facility] DIVISION OF RADIOLOGY * * *Final Report* * * DATE OF EXAM: Apr 25 2024 2:22PM [facility] 0545 - CT ENTEROGRAPHY W IVCON / [...] Lung Bases: Unremarkable. DIVISION OF RADIOLOGY Provider, [facility] [place] - 04/25/2024 * * *Final Report* * * DATE OF EXAM: Apr 25 2024 2:22PM [facility] 0545 - CT ENTEROGRAPHY W IVCON / [...] unilocular left adnexal cyst, stable since 03/23/2023. [facility] Transcribe Date/Time: Apr 25 2024 2:55P Dictated by : ODALIS GALAVIZ MD This examination was interpreted and the report reviewed and electronically signed by: ODALIS GALAVIZ MD on Apr 25 2024 3:13PM EST [facility] Radiology Study observation (narrative) [facility] CT Small bowel W contrast PO and W contrast IVOrdered By: Ccf Provider on 04-25-2024 [facility] 25(OH)D3 SerPl-mCncon 2023 25-hydroxyvitamin D3 [Mass/Vol] 39.3 ng/mL Normal 31.0-80.0 [facility] Comment on above: Order Comment: Speci men Type: BLOOD SPECIMEN Ordering Facility: [facility] Address: [address] [place] [address] Result Comment: Clas sification of 25 OH Vitamin D status: Deficiency/Insufficiency: < or = 30 ng/ml. Sufficiency/Optimal Levels: 31-80 ng/mL Toxicity: > 100 ng/mL. Test performed by chemiluminescent immunoassay. Performed By: #### 1 989-3 #### [facility] CLIA [id number] [address] [place] [address] [place] CBC panel Auto (Bld)on 04-10 Erythrocyte distribution width (RBC) [Ratio] 12.4 % 11.5 - 15.0 % [facility] Hematocrit (Bld) [Volume fraction] 37.7 % 36.0 - 46.0 % [facility] Hemoglobin (Bld) [Mass/Vol] 12.5 g/dL 11.5 - 15.5 g/dL [facility] Interpretation and review of laboratory results Normal [facility] MCH (RBC) [Entitic mass] 30.8 pg 26. 0 - 34.0 pg [facility] MCHC (RBC) [Mass/Vol] 33.2 g/dL 30.5 - 36.0 g/dL [facility] MCV (RBC) [Entitic vol] 92.9 fL 80.0 - 100.0 fL [facility] Nucleated RBC (Bld) [#/Vol] NINF [facility] Platelet mean volume (Bld) [Entitic vol] 10.6 fL 9.0 - 12.7 fL [facility] Platelets (Bld) [#/Vol] 274 10*3/uL [facility] RBC (Bld) [#/Vol] 4.06 10*6/uL 3.90 - 5.2 0 m/uL [facility] WBC (Bld) [#/Vol] 5.79 10*3/uL [facility] Erythrocyte distribution width (RBC) [Ratio] 12.4 % Normal 11.5-15.0 [facility] Comment on above: Order Comment: Kathleeni men Type: BLOOD SPECIMENOrdering Facility: [facility] Address: [address] [place] [address] Performed By: #### 5 8410-2 ####[facility] [id number] [place] [address] [place] Hematocrit (Bld) [Volume fraction] 37.7 % Normal 36.0-46.0 [facility] Comment on above: Order Comment: Speci men Type: BLOOD SPECIMENOrdering Facility: [facility] Address: [address] [place] [address] Performed By: #### 5 8410-2 ####[facility] [id number] [place] [address] [place] Hemoglobin (Bld) [Mass/Vol] 12.5 g/dL Normal 11.5-15.5 [facility] Comment on above: Order Comment: Speci men Type: BLOOD SPECIMENOrdering Facility: [facility] Address: [address] [place] [address] Performed By: #### 5 8410-2 ####[facility] [id number] [place] [address] [place] MCH (RBC) [Entitic mass] 30.8 pg Normal 26.0-34.0 [facility] Comment on above: Order Comment: Speci men Type: BLOOD SPECIMENOrdering Facility: [facility] Address: [address] [place] [address] Performed By: #### 5 8410-2 ####[facility] [id number] [place] [address] [place] MCHC (RBC) [Mass/Vol] 33.2 g/dL Normal 30.5-36.0 [facility] Comment on above: Order Comment: Speci men Type: BLOOD SPECIMENOrdering Facility: [facility] Address: [address] [place] [address] Performed By: #### 5 8410-2 ####[facility] [id number] [place] [address] [place] MCV (RBC) [Entitic vol] 92.9 fL Normal 80.0-100.0 [facility] Comment on above: Order Comment: Speci men Type: BLOOD SPECIMENOrdering Facility: [facility] Address: [address] [place] [address] Performed By: #### 5 8410-2 ####[facility] [id number] [place] [address] [place] Nucleated RBC (Bld) [#/Vol] 10*3/uL Normal <0.01 [facility] Comment on above: Order Comment: Speci men Type: BLOOD SPECIMENOrdering Facility: [facility] Address: [address] [place] [address] Performed By: #### 5 8410-2 ####[facility] [id number] [place] [address] [place] Platelet mean volume (Bld) [Entitic vol] 10.6 fL Normal 9.0-12.7 [facility] Comment on above: Order Comment: Speci men Type: BLOOD SPECIMENOrdering Facility: [facility] Address: [address] [place] [address] Performed By: #### 5 8410-2 ####[facility] [id number] [place] [address] [place] Platelets (Bld) [#/Vol] 274 10*3/uL Normal 150-400 [facility] Comment on above: Order Comment: Speci men Type: BLOOD SPECIMENOrdering Facility: [facility] Address: [address] [place] [address] Performed By: #### 5 8410-2 ####[facility] [id number] [place] [address] [place] RBC (Bld) [#/Vol] 4.06 10*6/uL Normal 3.90-5.20 [facility] Comment on above: Order Comment: Speci men Type: BLOOD SPECIMENOrdering Facility: [facility] Address: [address] [place] [address] Performed By: #### 5 8410-2 ####[facility] [id number] [address] [address] [place] WBC (Bld) [#/Vol] 5.79 10*3/uL Normal 3.70-11.00 [facility] Comment on above: Order Comment: Speci men Type: BLOOD SPECIMENOrdering Facility: [facility] Address: [address] [place] [address] Performed By: #### 5 8410-2 ####[facility] [id number] [place] [address] [place] CRP SerPl-mCncon 04-10-2024 CRP [Mass/Vol] mg/L Normal <0.9 [facility] Comment on above: Order Comment: Speci men Type: BLOOD SPECIMENOrdering Facility: [facility] Address: [address] [place] [address] Performed By: #### 2 4323-8, 1987-11 ####[facility] [id number] [address] [address] [place] Comprehensive metabolic 2000 panelon 04-10-2024 Albumin [Mass/Vol] 4.5 g/dL Normal 3.9-4.9 [facility] Comment on above: Order Comment: Speci men Type: BLOOD SPECIMENOrdering Facility: [facility] Address: [address] [place] [address] Performed By: #### 2 4323-8, 1987-11 ####[facility] [id number] [address] [address] [place] ALP [Catalytic activity/Vol] 80 U/L Normal 34-123 [facility] Comment on above: Order Comment: Speci men Type: BLOOD SPECIMENOrdering Facility: [facility] Address: [address] [place] [address] Performed By: #### 2 4323-02, 1987-11 ####[facility] [id number] [address] [address] [place] ALT [Catalytic activity/Vol] 14 U/L Normal 7-38 [facility] Comment on above: Order Comment: Speci men Type: BLOOD SPECIMENOrdering Facility: [facility] Address: [address] [place], [place] [address] Performed By: #### 2 4323-02, 1987-11 ####[facility] [id number] [place] [address] [place] Anion gap [Moles/Vol] 12 mmol/L Normal 8-15 [facility] Comment on above: Order Comment: Speci men Type: BLOOD SPECIMENOrdering Facility: [facility] Address: [address] [place], [place] [address] Performed By: #### 2 4323-02, 1987-11 ####[facility] [id number] [place] [address] [place] AST [Catalytic activity/Vol] 26 U/L Normal 13-35 [facility] Comment on above: Order Comment: Speci men Type: BLOOD SPECIMENOrdering Facility: [facility] Address: [address] [place], [place] [address] Performed By: #### 2 4323-02, 1987-11 ####[facility] [id number] [address] [address] [place] Bilirubin [Mass/Vol] 0.2 mg/dL Normal 0.2-1.3 [facility] Comment on above: Order Comment: Speci men Type: BLOOD SPECIMENOrdering Facility: [facility] Address: [address] [place] [address] Performed By: #### 2 4323-02, 1987-11 ####[facility] [id number] [address] [address] [place] Calcium [Mass/Vol] 9.6 mg/dL Normal 8.5-10.2 [facility] Comment on above: Order Comment: Speci men Type: BLOOD SPECIMENOrdering Facility: [facility] Address: [address] [place], [place] [id number] Performed By: #### 2 4323-02, 1987-11 ####[facility] LABCLIA [id number] [place] [id number] [place] Chloride [Moles/Vol] 102 mmol/L Normal 98-107 [facility] Comment on above: Order Comment: Speci men Type: BLOOD SPECIMENOrdering Facility: [facility] Address: [address] [place] [address] Performed By: #### 2 4323-02, 1987-11 ####[facility] LABCLIA [id number] [place] [address] [place] CO2 [Moles/Vol] 24 mmol/L Normal 22-30 [facility] Comment on above: Order Comment: Speci men Type: BLOOD SPECIMENOrdering Facility: [facility] Address: [address] [place], [place] [address] Performed By: #### 2 4323-02, 1987-11 ####[facility] LABCLIA [id number] [place] [id number] [place] Creatinine [Mass/Vol] 0.78 mg/dL Normal 0.58-0.96 [facility] Comment on above: Order Comment: Speci men Type: BLOOD SPECIMENOrdering Facility: [facility] Address: [address] [place], [place] [address] Performed By: #### 2 43209-14, 1987-11 ####[facility] LABCLIA [id number] [place] [id number] [place] Creatinine and Glomerular filtration rate.predicted panel (S/P/Bld) 91 mL/min/1.73m??? Normal >=60 [facility] Comment on above: Order Comment: Roman arriola Type: BLOOD SPECIMENOrdering Facility: [facility] Address: [address] [place] [address] Result Comment: Emelyn mated Glomerular Filtration Rate [...] GFR. Performed By: #### 2 43238, 1987-11 ####[facility] LABIA [id number] [place] [address] [place] Glucose [Mass/Vol] 94 mg/dL Normal 74-99 [facility] Comment on above: Order Comment: Roman arriola Type: BLOOD SPECIMENOrdering Facility: [facility] Address: [address] [place] [address] Result Comment: The [place] Diabetes Association (ADA) provides guidance for cutoff [...] Standards of Medical Care in Diabetes 2016, [place] [employer]. Diabetes Care. 2016.39(Suppl 1). Performed By: #### 2 43238, 1987-11 ####[facility] LABIA [id number] [place] [address] [place] Potassium [Moles/Vol] 4.5 mmol/L Normal 3.7-5.1 [facility] Comment on above: Order Comment: Speci men Type: BLOOD SPECIMENOrdering Facility: [facility] Address: [address] [place], [place] [address] Performed By: #### 2 43209-14, 1987-11 ####[facility] LABCLIA [id number] [address] [address] [place] Protein [Mass/Vol] 7.7 g/dL Normal 6.3-8.0 [facility] Comment on above: Order Comment: Speci men Type: BLOOD SPECIMENOrdering Facility: [facility] Address: [address] [place], [place] [phone] Performed By: #### 2 4328, 1987-11 ####[facility] LABCLIA [id number] [place] [address] [place] Sodium [Moles/Vol] 138 mmol/L Normal 136-144 [facility] Comment on above: Order Comment: Speci men Type: BLOOD SPECIMENOrdering Facility: [facility] Address: [address] [place], [place] [address] Performed By: #### 2 43209-14, 1987-11 ####[facility] LABCLIA [id number] [place] [address] [place] Urea nitrogen [Mass/Vol] 11 mg/dL Normal 7-21 [facility] Comment on above: Order Comment: Speci men Type: BLOOD SPECIMENOrdering Facility: [facility] Address: [address] [place], [place] [address] Performed By: #### 2 43209-14, 1987-11 ####[facility] LABCLIA [id number] [place] [id number] [place] ABDOMEN PELVIS WO IV CONT RASTon [...] - challengeon 04-02-2024 Bilirubin Ql (U) Negative [facility] Glucose (U) [Mass/Vol] Negative [facility] Ketones Ql (U) Negative [facility] pH (U) 9.0 [pH] [facility] Specific gravity (U) [Rel density] 1.005 [facility] Urobilinogen (U) [Mass/Vol] 0.2 mg/dL [facility] Laboratory - Microbiology an d Antimicrobial susceptibilityOrdered By: Genevieve Feng on 04-02-2024 Bacteria identified Cx Nom (U) Escherichia coli Abnormal [facility] Laboratory - Specimen inform ationon 04-02-2024 Appearance (U) Clear [facility] Color (U) Clear [facility] Laboratory - Urinalysison Leukocyte esterase Test strip Ql (U) 1+ [facility] Nitrite Ql (U) Negative [facility] Protein Ql (U) Negative [facility] No Panel Informationon 04-02 Urine Occult Blood 3+ [facility] Urine Cultureon 04-02-2024 Bacteria identified Cx Nom (U) ORGANISM: Escherichia coli (O:ESCCOL) [place] Count >100,000 Aerobic LEXIS Charge (NMIC56) ----- [...] RESISTANT TO ALL B-LACTAM DRUGS. PERFORMED BY: [address] [place] [id number] PATHOLOGIST SENIOR FIRMWARE ENGINEER ANUSHA ROMO M.D. Normal [facility] Comment on above: Performed By: #### C UU #### [place] [id number] [facility] HPon 03-18-2024 HP Attestation signed by Seda Douglass MD at 03/18/2024 11:05 AM H and [...] these risks and wishes to proceed. Seda Douglass MD History Of Present Illness Socorro Gallagher [...] wishes to proceed. Amairani Tinoco MD PGY-4 cloth printer helper [facility] NURSNOTEon 03-18-2024 NURSNOTE RN educated pt on d/c instructions. RN encouraged pt to voice any questions or concerns. Pt verbalizes no questions or concerns at this time. Pt was wheeled off of unit with all of belongings. [facility] Basophils Auto (Bld) [#/Vol] on 03-13-2024 Basophils (Bld) [#/Vol] 0.0 10 3/uL 0.0-0.1 [facility] Basophils/100 WBC Auto (Bld) on 03-13-2024 Basophils/100 WBC (Bld) 0.6 % 0.2-2.0 F [facility] Eosinophils/100 WBC Auto (Bl d)on 03-13-2024 Eosinophils/100 WBC (Bld) 2.4 % 0.9-7.0 [facility] Erythrocyte distribution wid th Auto (RBC) [Ratio]on 03-13-2024 Erythrocyte distribution width (RBC) [Ratio] 12.0 % 11.0-15.0 [facility] Estimated glomerular filtrat ion rate (GFR) non- Americanon 03-13-2024 GFR/1.73 sq M.predicted among non-blacks MDRD (S/P/Bld) [Vol rate/Area] mL/min/{1.73_m2} >=60 [facility] Hematocrit Auto (Bld) [Volum e fraction]on 03-13-2024 Hematocrit (Bld) [Volume fraction] 36.7 % 36.0-48.0 [facility] Hemoglobin [Mass/volume] in Bloodon 03-13-2024 Hemoglobin (Bld) [Mass/Vol] 12.3 g/dL 12.0-16.0 [facility] Laboratory - Chemistry and C hemistry - challengeon 03-13-2024 Calcium [Mass/Vol] 8.8 mg/dL 8.5-10.1 [facility] Chloride [Moles/Vol] 99 mmol/L 98-107 [facility] CO2 [Moles/Vol] 32.4 mmol/L High 21.0-32.0 [facility] Creatinine [Mass/Vol] 0.66 mg/dL 0.55-1.02 [facility] GFR/1.73 sq M.predicted MDRD (S/P/Bld) [Vol rate/Area] mL/min/{1.73_m2} >=60 [facility] Glucose [Mass/Vol] 97 mg/dL 74-106 [facility] Potassium [Moles/Vol] 4.3 mmol/L 3.5-5.1 [facility] Sodium [Moles/Vol] 136 mmol/L 136-145 [facility] Urea nitrogen [Mass/Vol] 17.0 mg/dL 7.0-18.0 [facility] Urea nitrogen/Creatinine [Mass ratio] 25.8 mg/mg [facility] Laboratory - Hematology and Cell countson 03-13-2024 Immature granulocytes/100 WBC (Bld) 0.0 % 0.0-0.5 [facility] Leukocytes [#/volume] correc alejandra for nucleated erythrocytes in Blood by Automated counon 03-13-2024 WBC corrected for nucl RBC Auto (Bld) [#/Vol] 6.3 10 3/uL 4.0-11.0 [facility] Lymphocytes Auto (Bld) [#/Vo l]on 03-13-2024 Lymphocytes (Bld) [#/Vol] 1.7 10 3/uL 1.2-3.8 [facility] Lymphocytes/100 WBC Auto (Bl d)on 03-13-2024 Lymphocytes/100 WBC (Bld) 27.0 % 20.5-60.0 [facility] MCH Auto (RBC) [Entitic mass ]on 03-13-2024 MCH (RBC) [Entitic mass] 31.1 pg 26.7-34.0 [facility] MCHC Auto (RBC) [Mass/Vol]on 03-13-2024 MCHC (RBC) [Mass/Vol] 33.5 g/dL 29.9-35.2 [facility] MCV Auto (RBC) [Entitic vol] on 03-13-2024 MCV (RBC) [Entitic vol] 92.7 fL 81.0-99.0 F [facility] Monocytes Auto (Bld) [#/Vol] on 03-13-2024 Monocytes (Bld) [#/Vol] 0.5 10 3/uL 0.3-0.8 [facility] Monocytes/100 WBC Auto (Bld) on 03-13-2024 Monocytes/100 WBC (Bld) 7.7 % 1.7-12.0 F [facility] Neutrophils Auto (Bld) [#/Vo l]on 03-13-2024 Neutrophils (Bld) [#/Vol] 3.9 10 3/uL 1.4-6.5 [facility] Neutrophils/100 WBC Auto (Bl d)on 03-13-2024 Neutrophils/100 WBC (Bld) 62.3 % 43.0-75.0 [facility] No Panel Informationon 03-13 Eosinophils # (Auto) 0.2 10 3/uL 0.0-0.7 [facility] Immature Granulocyte # (Auto) 0.00 10 3/uL 0.00-0.03 [facility] Platelet mean volume Auto (B ld) [Entitic vol]on 03-13-2024 Platelet mean volume (Bld) [Entitic vol] 9.7 fL 9.5-13.5 [facility] Platelets Auto (Bld) [#/Vol] on 03-13-2024 Platelets (Bld) [#/Vol] 246 10 3/uL 150-450 [facility] RBC Auto (Bld) [#/Vol]on RBC (Bld) [#/Vol] 3.96 10 6/uL Low 4.20-5.40 [facility] Serum or plasma anion gap de terminationon 03-13-2024 Anion gap [Moles/Vol] 8.9 mmol/L [facility] DEXA BONE DENSITYon 03-12-20 24 DEXA BONE DENSITY FINDINGS: Dual Femur bone density obtained with a [employer] whole body system: Region BMD Young-Adult Age-Matched [...] AP Spine bone density obtained with a [employer] whole body system: Region BMD Young-Adult Age-Matched [...] Not Available Office Visiton 03-04-2024 Follow-up visit [id number] Yuri Gallagher 1970 F Date Provider Department Center 03/04/2024 3848-SEDA DOUGLASS BRANDY [facility] Family History Problem Relation Age of Onset No Known Problems Mother Heart attack Father Coronary artery disease Father's Brother Stroke Paternal Grandfather Family Status - Relation Status Age at Mother Father Father's Brother Paternal Grandfather Level of Service:84556 [place] OFFICE/OUTPATIENT NEW MODERATE MDM 45 MINUTES Normal [facility] Orders Onlyon 03-04-2024 Orders Only [id number] Yuri Gallagher 1970 F Date Provider Department Center 03/04/2024 TANISHA ANDINO BRANDY [facility] Family History Problem Relation Age of Onset No Known Problems Mother Heart attack Father Coronary artery disease Father's Brother Stroke Paternal Grandfather Family Status - Relation Status Age at Mother Father Father's Brother Paternal Grandfather Normal [facility] CNOVon 06-21-2023 CN Office Visit ([facility]) SOCORRO GALLAGHER ([id number]) 1970 F Date Time Provider Department 06/21/23 8:00 AM MARSHA LANDA [facility] During your visit today, we recorded the following information about you: Weight Height 64 kg 1.6 m Marsha Landa APRN.[facility] 06/21/2023 9:30 AM Signed Spine Care [...] under the care of pain management in [facility] where she recently underwent a right gluteal nerve block without improvement in symptoms. She states that at postinjection follow-up she was offered a piriformis injection but is reluctant to proceed. She reports that she recently had an EMG completed. EMG results were not available at time of today's appointment. 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 Mortensen - PCP Linda Carrillo PA-C - OBGYN Dr. Costa - Pain [...] christina (more content not included)... Normal [facility] RAD - Ultrasound Reporton RAD - Ultrasound Report [id number] #1.00CD:127 Normal [facility] Coding Summary.on 07-31-2020 Coding Summary. CODING DATE: 07/31/2020 FINAL [facility] STATUS: Home (Routine DC) PAYOR: [facility] [place] [facility] DESCRIPTION 5373 Level 3 Urology and Related Services ADMIT DX: REASON FOR VISIT DX: R35.0 Frequency of micturition FINAL DX: PRINCIPAL: R35.0 Frequency of micturition SECONDARY: R39.15 Urgency of urination Z87.440 Personal history of urinary (tract) infections F41.1 Generalized anxiety disorder Z87.442 Personal history of urinary calculi PYMT [facility] STAT DESCRIPTION DOCTOR NAME DATE NOTE: The code number assigned matches the documented diagnosis and / or procedure in the patient's chart. However, the narrative phrase printed from the coding software may appear abbreviated, or result in slightly different terminology. Coded By: So Valle Date Saved: 07/31/2020 12:41 pm [facility] Consent for Procedure/Surger yon 07-30-2020 Consent for Procedure/Surgery [id number]#1.00CD:127 [facility] Consent for Treatmenton 07-11 Consent for Treatment [id number] #1.00CD:127 [facility] Discharge Instructionson Discharge Instructions [id number]#1.00CD:127 [facility] History and Physicalon 07-30 History and Physical [id number] 2#1.00CD:127 [facility] IntraOperative Documentson 0 07-30-2020 IntraOperative Documents [id number] 9#1.00CD:127 [facility] Main OR Intraoperative Recor don 07-30-2020 Main OR Intraoperative Record IntraOp Document Type FTURO Summary Primary Physician: Facundo Fam Jr., MD Finalized Date/Time: 07/30/20 13:50:41 Pt. Name: YURI GALLAGHER Isidro Mireles/Sex: 1970 Female Med Rec #: [id number] Physician: Facundo Fam Jr., MD Financial #: [id number] Pt. Type: O Room/Bed: / Admit/Disch: 07/30/20 13:06:47 - Institution: Case Times FTURO Entry 1 Patient Times In Room 07/30/20 13:40:00 Out Room 07/30/20 13:51:00 Procedure Times Start 07/30/20 13:46:00 Stop 07/30/20 13:47:00 Anesthesia Times Last Modified By: Colleen RN, CNOR, Diana Avilez 07/30/20 13:50:14 Case Attendance FTURO Entry 1 Entry 2 Entry 3 Case Attendee Sarwat Yadav MD, Facundo Macias RN, CNOR, Diana Avilez [facility] Role Performed Surgeon - Primary Audio Visual Coordinator - Primary Scrub - Primary Time In [...] DILATION Surgeon Description CYSTOSCOPY WITH URETHRAL DILATION- 24- Primary Procedure Yes Primary Surgeon Facundo Fam [...] Macias RN, Lou Ann 07/30/20 13:50 Normal [facility] Main OR Preoperative Recordo n 07-30-2020 Main OR Preoperative Record Holding Area Document Type FTURO Summary Primary Physician: Facundo Fam Jr., MD Finalized Date/Time: 07/30/20 13:41:28 Pt. Name: YURI GALLAGHERO.B./Sex: 1970 Female Med Rec #: [id number] Physician: Facundo Fam Jr., MD Financial #: [id number] Pt. Type: O Room/Bed: / Admit/Disch: 07/30/20 [...] Lou Ann Document Signatures Signed By: Kirstie WOODDenishaa 07/30/20 13:22 LYNSEY Macias RN, Lou Ann 07/30/20 13:41 LYNSEY Macias RN, Lou Ann 07/30/20 13:41 Normal [facility] Operative Reporton Operative Report Patient: YURI GALLAGHER Age: 49 [...] urine. The Urethra was dilated to: 28 [place]er w/ sounds. Devices Implanted: None. Removal: Cystoscope is removed, The patient tolerated it well. Postoperative Information Discharge: Patient is discharged home with antibiotic coverage, Follow up arranged. Normal [facility] Comment on above: Result Comment: [...] have a fever over 100 degrees Normal [facility] Ambulatory Clinical Summaryo n 07-21-2020 Ambulatory Clinical Summary {[id number]}CD:[id number] Normal [facility] Ambulatory Clinical Summary {[id number]}CD:[id number] Normal [facility] Patient Educationon 07-21-19 Patient Education [...] Document Reviewed: 08/03/2012 ExitCare? Patient Information ?2013 [employer]. [facility] Urology Office/Clinic Noteon 07-21-2020 Urology Office/Clinic [...] Will order Local anesthesia. ABX sent to [facility] in [place]. Ordered: Urology Procedure Order US Renal 2. [...] day(s), # 2 tab(s), Refills(s) 0, Pharmacy: [facility]/pharmacy #[id number], 162, cm, 07/21/20 13:48:00 EST, Height/Length Dosing, 68.5, kg, 07/21/20 13:48:00 EST, Weight Dosing Urnls Dip Stick Auto w/o Microscopy POC 19258 I have reviewed the previous health record information and history for this pt. from Dr. Fam. Follow-up With When Contact Information Sarwat Yadav MD, Facundo Felix [address] [place] [address] [place] [address]- Additional Instructions: Patient Education Urinary Tract Infection [...] Protein Urine Dipstick: Negative (07/21/20 13:39:00) Specific [place] Urine Dipstick: 1.020 (07/21/20 13:39:00) Urine Appearance [...] she is been treated with Bactrim DS. [facility] Comment on above: Result Comment: Elec tronically Signed By: Sarwat Yadav MD, Facundo Felix\.br\Date and Time Signed: 07/21/20 14:42 EST\.br\Electronically Co-Signed By: Lety Marino MA\.br\Date and Time Co-Signed: 07/21/20 14:31 EST Vital Signs Date Time Vital Sign Value Performing Clinician Luke manzano 05-14-2024 15:18-0500 Body mass index (BMI) [Ratio] 24.99 kg/m2 Marsha Landa APRN.RUBEN Work Phone: [facility] 05-14-2024 15:18-0500 Body weight 64 kg Marsha Landa APRN.CNP Work Phone: [facility] 05-02-2024 11:30-0400 Diastolic blood pressure 80 mm[Hg] PHYSICIAN NO [facility] 05-02-2024 11:30-0400 Heart rate 68 /min PHYSICIAN NO [facility] 05-02-2024 11:30-0400 Respiratory rate 16 /min PHYSICIAN NO [facility] 05-02-2024 11:30-0400 SaO2% (BldA) [Mass fraction] 97 % PHYSICIAN NO [facility] 05-02-2024 11:30-0400 Systolic blood pressure 117 mm[Hg] PHYSICIAN NO [facility] 05-02-2024 10:25-0400 Body height 160.02 cm PHYSICIAN NO [facility] 05-02-2024 10:25-0400 Body temperature 97.1 [degF] PHYSICIAN NO [facility] 05-02-2024 10:25-0400 Body weight 61.23 kg PHYSICIAN NO [facility] 05-01-2024 08:59-0400 Body height 160.02 cm PHYSICIAN NO [facility] 05-01-2024 08:59-0400 Body mass index (BMI) [Ratio] 23.9 kg/m2 PHYSICIAN NO [facility] 05-01-2024 08:59-0400 Body weight 61.23 kg PHYSICIAN NO [facility] 04-10-2024 13:24-0400 Body height 160 cm Kyle Zhu MD Work Phone: [facility] 04-10-2024 13:24-0400 Body mass index (BMI) [Ratio] 23.74 kg/m2 Kyle Zhu MD Work Phone: [facility] 04-10-2024 13:24-0400 Body temperature 98.2 [degF] Kyle Zhu MD Work Phone: [facility] 04-10-2024 13:24-0400 Body weight 60.78 kg Kyle Zhu MD Work Phone: [facility] 04-10-2024 13:24-0400 Diastolic blood pressure 80 mm[Hg] Kyle Zhu MD Work Phone: [facility] 04-10-2024 13:24-0400 Heart rate 77 /min Kyle Zhu MD Work Phone: [facility] 04-10-2024 13:24-0400 SaO2% (BldA) [Mass fraction] 97 % Kyle Zhu MD Work Phone: [facility] 04-10-2024 13:24-0400 Systolic blood pressure 120 mm[Hg] Kyle Zhu MD Work Phone: [facility] 04-02-2024 10:11-0400 Body height 160.02 cm DAGMAR Feng Work Phone: [facility] 04-02-2024 09:07-0400 Body height 160.02 cm [facility] 04-02-2024 09:07-0400 Body mass index (BMI) [Ratio] 25 kg/m2 [facility] 04-02-2024 09:07-0400 Body temperature 97.4 [degF] [facility] 04-02-2024 09:07-0400 Body weight 64.01 kg [facility] 04-02-2024 09:07-0400 Diastolic blood pressure 80 mm[Hg] [facility] 04-02-2024 09:07-0400 Systolic blood pressure 124 mm[Hg] [facility] 03-21-2024 08:26-0400 Body height 160.02 cm [facility] 03-21-2024 08:26-0400 Body mass index (BMI) [Ratio] 24.6 kg/m2 [facility] 03-21-2024 08:26-0400 Body weight 63.04 kg [facility] 03-21-2024 08:26-0400 Diastolic blood pressure 70 mm[Hg] [facility] 03-21-2024 08:26-0400 Heart rate 73 /min [facility] 03-21-2024 08:26-0400 Respiratory rate 18 /min [facility] 03-21-2024 08:26-0400 SaO2% (BldA) [Mass fraction] 99 % [facility] 03-21-2024 08:26-0400 Systolic blood pressure 118 mm[Hg] [facility] 02-26-2024 13:28-0400 Body height 160.02 cm [facility] 02-26-2024 13:28-0400 Body mass index (BMI) [Ratio] 25.1 kg/m2 [facility] 02-26-2024 13:28-0400 Body weight 64.41 kg [facility] 02-26-2024 13:28-0400 Diastolic blood pressure 70 mm[Hg] [facility] 02-26-2024 13:28-0400 Heart rate 80 /min [facility] 02-26-2024 13:28-0400 SaO2% (BldA) [Mass fraction] 98 % [facility] 02-26-2024 13:28-0400 Systolic blood pressure 130 mm[Hg] [facility] 02-19-2024 15:29-0400 Body height 160.02 cm [facility] 02-19-2024 15:29-0400 Body mass index (BMI) [Ratio] 25.3 kg/m2 [facility] 02-19-2024 15:29-0400 Body weight 64.86 kg [facility] 02-19-2024 15:29-0400 Diastolic blood pressure 80 mm[Hg] [facility] 02-19-2024 15:29-0400 Heart rate 87 /min [facility] 02-19-2024 15:29-0400 SaO2% (BldA) [Mass fraction] 98 % [facility] 02-19-2024 15:29-0400 Systolic blood pressure 136 mm[Hg] [facility] 10-12-2023 08:26-0400 Body height 160.02 cm [facility] 10-12-2023 08:26-0400 Body mass index (BMI) [Ratio] 25.1 kg/m2 [facility] 10-12-2023 08:26-0400 Body weight 64.41 kg [facility] 10-12-2023 08:26-0400 Diastolic blood pressure 78 mm[Hg] [facility] 10-12-2023 08:26-0400 Heart rate 78 /min [facility] 10-12-2023 08:26-0400 SaO2% (BldA) [Mass fraction] 98 % [facility] 10-12-2023 08:26-0400 Systolic blood pressure 112 mm[Hg] [facility] 09-14-2023 09:36-0500 Body height 160.02 cm [facility] 09-14-2023 09:36-0500 Body mass index (BMI) [Ratio] 24.6 kg/m2 [facility] 09-14-2023 09:36-0500 Body weight 63.04 kg [facility] 09-14-2023 09:36-0500 Diastolic blood pressure 82 mm[Hg] [facility] 09-14-2023 09:36-0500 Heart rate 88 /min [facility] 09-14-2023 09:36-0500 SaO2% (BldA) [Mass fraction] 98 % [facility] 09-14-2023 09:36-0500 Systolic blood pressure 118 mm[Hg] [facility] 06-21-2023 07:56-0500 Body height 160 cm Marsha Landa SENIOR SPEECH PATHOLOGIST.JANITOR HEAD Work Phone: [facility] 06-21-2023 07:56-0500 Body weight 63.96 kg Marsha Landa SENIOR SPEECH PATHOLOGIST.JANITOR HEAD Work Phone: [facility] 03-20-2023 08:57-0400 Body height 160 cm JAM Melgar MD Work Phone: [facility] 03-20-2023 08:57-0400 Body weight 61.24 kg NA Ramón AGUIRRE Work Phone: [facility] Encounters Encounter Date Encounter Type Care Provider Facility Start: 05-17-2024 End: 05-17-2024 Bamboo flowsheet Blanka Shaw PT Work Phone: [facility] Start: 05-17-2024 End: 05-17-2024 Bamboo flowsheet Blanka Shaw PT Work Phone: [facility] Start: 05-17-2024 End: 05-17-2024 ambulatory Blanka Shaw PT Work Phone: [facility] Comment on above: Thoracic spine pain (Primary Dx); Thoracic spondylosis Start: 05-14-2024 End: 05-14-2024 ambulatory MARSHA LANDA Facility:[facility] Start: 05-14-2024 End: 05-14-2024 Patient encounter procedure Marsha Landa SENIOR SPEECH PATHOLOGIST.JANITOR HEAD Work Phone: [facility] Comment on above: Thoracic spondylosis (Primary Dx); 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; Epigastric pain Start: 05-13-2024 End: 05-13-2024 Bamboo flowsheet Linda DEVINE Work Phone: [facility] Start: 05-13-2024 End: 05-13-2024 Bamboo flowsheet Linda DEVINE Work Phone: [facility] Start: 05-13-2024 End: 05-13-2024 Telephone encounter Marsha Landa SENIOR SPEECH PATHOLOGIST.JANITOR HEAD Work Phone: [facility] Comment on above: Patient Question Start: 05-13-2024 End: 05-13-2024 Patient encounter procedure Linda DEVINE Work Phone: [facility] Start: 05-13-2024 End: 05-13-2024 Periodic preventive med est patient 40-64yrs Linda DEVINE Work Phone: [facility] Comment on above: Well woman exam with routine gynecological exam; Other screening mammogram; Surgical menopause Start: 05-13-2024 End: 05-13-2024 ambulatory LINDA CARRILLO Not Available Start: 05-02-2024 Non-patient / Non-visit PHYSICIAN [facility] Work Phone: Start: 05-02-2024 End: 05-02-2024 Admission to same day surgery center PHYSICIAN NO [facility] Work Phone: Start: 05-02-2024 End: 05-02-2024 ambulatory PHYSICIAN NO [facility] Work Phone: Start: 05-02-2024 End: 05-02-2024 Patient encounter procedure PHYSICIAN NO [facility] [address] Work Phone: Start: 05-02-2024 End: 05-02-2024 ambulatory PHYSICIAN NO [facility] Work Phone: Start: 05-01-2024 End: 05-01-2024 ambulatory PHYSICIAN NO [facility] Work Phone: Start: 05-01-2024 End: 05-01-2024 Patient encounter procedure [facility]IAN [facility] Work Phone: Start: 04-25-2024 End: 04-25-2024 ambulatory Kyle Zhu Facility:[facility] Start: 04-25-2024 End: 04-25-2024 Subsequent hospital visit by physician Ct Prep [facility] C[facility] Radiology Ct Scan Comment on above: Abdominal pain, unsp ecified abdominal location [R10.9] Start: 04-10-2024 End: 04-10-2024 Patient encounter procedure Kyle Zhu MD Work Phone: Gastroenterology Comment on above: Abdominal pain, unsp ecified abdominal location (Primary Dx) Start: 04-10-2024 End: 04-10-2024 ambulatory Kyle Zhu Facility:[facility] Start: 04-08-2024 End: 04-08-2024 [facility] Start: 04-02-2024 End: 04-02-2024 ambulatory BLANKA AGUIRRE Not Available Start: 04-02-2024 End: 04-02-2024 Patient encounter procedure [facility] Work Phone: Start: 04-02-2024 End: 04-02-2024 ambulatory PHYSICIAN YARELI [facility] Work Phone: Start: 04-02-2024 End: 04-02-2024 Departed Referred SENIOR SPEECH PATHOLOGIST Genevieve Feng Work Phone: [facility] [place] Work Phone: Start: 03-22-2024 End: 03-22-2024 ambulatory BLANKA AGUIRRE Not Available Start: 03-21-2024 End: 03-21-2024 ambulatory [facility] Work Phone: Start: 03-21-2024 End: 03-21-2024 Patient encounter procedure [facility] Work Phone: Start: 03-18-2024 End: 03-18-2024 ambulatory [facility] Start: 03-18-2024 End: 03-18-2024 ambulatory [facility] Start: 03-13-2024 Non-patient / Non-visit [facility] Work Phone: Start: 03-12-2024 End: 03-12-2024 ambulatory LINDA CARRILLO Not Available Start: 03-05-2024 End: 03-05-2024 ambulatory LINDA TONI Not Available Start: 03-04-2024 Non-patient / Non-visit [facility] Work Phone: Start: 03-04-2024 End: 03-04-2024 ambulatory [facility] Start: 02-26-2024 End: 02-26-2024 ambulatory [facility] Work Phone: Start: 02-26-2024 End: 02-26-2024 Patient encounter procedure [facility] Work Phone: Start: 02-19-2024 End: 02-19-2024 ambulatory [facility] Work Phone: Start: 02-19-2024 End: 02-19-2024 Patient encounter procedure [facility] Work Phone: Start: 10-26-2023 End: 10-26-2023 ambulatory BETHANY John MARIA ANTONIA Not Available Start: 10-12-2023 Patient encounter status [facility] Start: 10-12-2023 End: 10-12-2023 ambulatory [facility] Work Phone: Start: 10-12-2023 End: 10-12-2023 Encounter for general adult medical examination without abnormal findings [facility] Start: 10-12-2023 End: 10-12-2023 Patient encounter procedure [facility] Work Phone: Start: 09-14-2023 End: 09-14-2023 Patient encounter procedure [facility] Work Phone: Start: 06-21-2023 End: 06-21-2023 ambulatory MARSHA LANDA Facility:[facility] Start: 06-21-2023 End: 06-21-2023 Patient encounter procedure Marsha Landa SENIOR SPEECH PATHOLOGIST.JANITOR HEAD Work Phone: [facility] Comment on above: Right leg pain (Prim antonietta Dx); Numbness and tingling of right lower extremity; Piriformis syndrome, right Start: 06-12-2023 End: 06-12-2023 ambulatory LINDA CARRILLO Not Available Start: 03-23-2023 End: 03-23-2023 ambulatory MD Agustin Mortensen Work Phone: [facility] Work Phone: Start: 03-23-2023 End: 03-23-2023 Patient encounter procedure MD Agustin Mortensen Work Phone: [facility] [address] Work Phone: [...] Screening for malign ant neoplasm of cervix [facility] Start: 04-10-2027 Diabetes Screening [facility] Start: 01-30-2026 Diabetes Screening [facility] Start: 05-15-2025 End: 05-15-2025 Patient encounter procedure 05/15/2025 11:00 AM EST Office Visit [facility] [address] [place] [address] Linda Carrillo PA [address] [place] [address] [facility] Start: 10-24-2024 End: 10-24-2024 Patient encounter procedure 10/24/2024 8:40 AM EDT Office Visit [facility] [address] [place] [phone] Bethany Chang, SENIOR SPEECH PATHOLOGIST-JANITOR HEAD [address] [place] [address] [facility] Start: 06-23-2024 Screening for malign ant neoplasm of colon [facility] Start: 06-12-2024 Screening for malign ant neoplasm of breast [facility] Start: 06-12-2024 End: 06-12-2024 ambulatory 06/12/2024 7:30 AM EST Treatment [facility] [address] [place] [phone] Blanka Shaw, PT [address] [place] [address] [facility] Start: 06-10-2024 End: 06-10-2024 ambulatory 06/10/2024 7:30 AM EST Treatment [facility] [address] [place] [address] Blanka Shaw, PT [address] [place] [address] [facility] Start: 06-05-2024 End: 06-05-2024 ambulatory 06/05/2024 4:00 PM EST Treatment [facility] [address] [place] [address] Blanka Shaw, PT [address] [place] [address] [facility] Start: 06-03-2024 End: 06-03-2024 ambulatory 06/03/2024 8:00 AM EST Treatment [facility] [address] [place] [address] Blanka Shaw, PT [address] [place] [address] [facility] Start: 06-03-2024 End: 06-03-2024 Patient encounter procedure 06/03/2024 8:00 AM EST Office Visit [facility] [address] [place] [address] [place] [address] Marsha Landa, SENIOR SPEECH PATHOLOGIST.JANITOR HEAD [address] [place] [address] back pain [facility] Comment on above: back pain Start: 05-31-2024 End: 05-31-2024 ambulatory 05/31/2024 7:30 AM EST Treatment [facility] [address] [place] [phone] Blanka Shaw, PT [address] [place] [address] [facility] Start: 05-29-2024 End: 05-29-2024 ambulatory 05/29/2024 7:30 AM EST Treatment [facility] [address] [place] [address] Blanka Shaw, PT [address] [place] [address] [facility] Start: 05-24-2024 End: 05-24-2024 ambulatory 05/24/2024 7:00 AM EST Treatment [facility] [address] [place] [address] Blanka Shaw, PT [address] [place] [address] [facility] Start: 05-22-2024 End: 05-22-2024 ambulatory 05/22/2024 7:30 AM EST Treatment [facility] [address] [place] [address] Blanka Shaw, PT [address] [place] [address] [facility] Start: 05-20-2024 End: 05-20-2024 Professional / ancillary services management 05/20/2024 11:00 AM EST Ancillary Procedure [facility] [address] [place] [address] [place] [phone] [facility] Start: 05-17-2024 End: 05-17-2024 ambulatory 05/17/2024 12:30 PM EST Evaluation [facility] [address] [place] [address] Blanka Shwa, PT [address] [place] [address] Arrived [facility] Comment on above: Arrived Start: 05-14-2024 End: 05-14-2024 Patient encounter procedure 05/14/2024 3:30 PM EST Office Visit [facility] [address] [address] Marsha Landa, DAGMAR.JANITOR HEAD [address] [place] [address] tightness in my upper abdomen and under my ribs [facility] Comment on above: tightness in my uppe [...] EST Office Visit [facility] [address] [place] [address] Linda Carrillo PA [address] [place], [facility] Arrived [facility] Comment on above: Arrived Start: 05-02-2024 [facility] Start: 05-02-2024 MR Thoracic spine [facility] Start: 05-02-2024 MR thoracic spine wo con MR th oracic spine wo con [facility] Start: 05-02-2024 XR pre/post mri xray XR pre/post mri xray [facility] Start: 05-02-2024 End: 05-02-2024 [facility] Start: 04-25-2024 End: 04-25-2024 Patient encounter procedure Radiology Ct Scan Comment on above: CT ENTEROGRAPHY W IV CON Start: 04-10-2024 End: 07-10-2024 25-hydroxyvitamin D3 [Mass/volume] in Serum or Plasma [facility] Comment on above: Expected: 04/10/2024 , Expires: 07/10/2024 Start: 04-10-2024 End: 07-10-2024 C reactive protein [Mass/volume] in Serum or Plasma [facility] Comment on above: Expected: 04/10/2024 , Expires: 07/10/2024 Start: 04-10-2024 End: 07-10-2024 Comprehensive metabolic 2000 panel - Serum or Plasma [facility] Work Phone: Comment on above: Expected: 04/10/2024 , Expires: 07/10/2024 Start: 04-02-2024 Bacteria identified in Urine by Culture [facility] Start: 03-10-2024 Covid-19 Vaccine () Covid-19 Vaccine () [facility] Start: 03-10-2024 Influenza vaccination Influenza Vacc ine (#1) [facility] Start: 04-25-2023 Shingrix Vaccine (2 of 2) Shingrix Vaccine (2 of 2) [facility] Start: 03-10-2023 Influenza vaccination [facility] Start: 07-10-2022 DEPRESSION ASSESSMENT DEPRESSION ASS ESSMENT [facility] Start: 2020 SHINGRIX VACCINE (1 of 2) SHINGRIX VACCINE (1 of 2) [facility] Start: 12-07-2015 COLOGUARD (FIT-DNA) COLOGUARD (FIT-D NA) [facility] Start: 12-07-2015 Colonoscopy COLONOSCOPY [facility] Start: 12-07-2015 COLORECTAL CANCER SCREENING COLORECTAL CANCER SCREENING [facility] Start: 12-07-[address] COLONOGRAPHY [facility] Start: 12-07-2015 DIABETES SCREEN DIABETES SCREEN [facility] Start: 12-07-2015 Diabetes Screening Diabetes Screenin g [facility] Start: 12-07-2015 FECAL OCCULT BLOOD FECAL OCCULT BLOO D [facility] Start: 12-07-2015 Lipid panel Lipid Screening [facility] Start: 12-07-2015 LIPID SCREEN LIPID SCREEN [facility] Start: 12-07-2015 Screening for malign ant neoplasm of colon [facility] Start: 12-07-2015 [facility] Start: 2010 Mammography MAMMOGRAM [facility] Start: 2000 HPV TESTING HPV TESTING [facility] Start: 2000 Screening for malign ant neoplasm of cervix HPV Testing [facility] Start: 12-07-1991 PAP TESTING PAP TESTING [facility] Start: 12-07-1991 Screening for malign ant neoplasm of cervix [facility] Start: 1989 Hepatitis B Vaccine (1 of 3 - 19+ 3-dose series) Hepatitis B Vaccine (1 of 3 - 19+ 3-dose series) [facility] Start: 1989 Urine microalbumin profile [facility] Start: 1988 Anxiety Screening Anxiety Screening [facility] Start: 1988 Depression Screening Depression Scre ening [facility] Start: 1988 HEPATITIS C SCREENING HEPATITIS C [facility] Start: 1988 Hepatitis C screening Hepatitis C [facility] Start: 1988 HIV SCREENING HIV SCREENING [facility] Start: 1988 HIV screening HIV Screening [facility] Start: 06-08-1971 COVID-19 VACCINE (#1) COVID-19 VACCI NE (#1) [facility] Start: 1970 HEPATITIS B (1 of 3 - 3-dose series) HEPATITIS B (1 of 3 - 3-dose series) [facility] Start: 1970 Hepatitis B Vaccine (1 of 3 - 3-dose series) Hepatitis B Vaccine (1 of 3 - 3-dose series) [facility] Start: 1970 Screening for malign ant neoplasm of colon [facility] Cardiovascular stres s testing [facility] Comprehensive metabo lic 2000 panel - Serum or Plasma [facility] End: 05-10-2025 CT Small bowel W contrast PO and W contrast IV CT ENTEROGRAPHY W IVCON Radiology Routine Abdominal pain, unspecified abdominal location 1 Occurrences starting 04/10/2024 until 05/10/2025 [facility] Comment on above: 1 Occurrences starti ng 04/10/2024 until 05/10/2025 Holter monitor study [facility] Patient Education Know your Meds [facility] Work Phone: THIN PREP TIS PAP AN D HR HPV DNA THIN PREP TIS PAP AND HR HPV DNA Pathology and Cytology Routine Well woman exam with routine gynecological exam Ordered: 05/13/2024 [facility] Comment on above: Ordered: 05/13/2024 US Abdomen limited [facility] US [facility] Immunizations Immunization Date Immunization Notes Care Provider Fa ritasonya 02-28-2023 zoster vaccine recombinant [facility] 11-03-2020 COVID-19 Ad26.COV2.S (Anabell) [facility] Payers Date Payer Category Payer Self-pay [id number] 2023 Unknown [id number] 2023 Unknown [id number] 2022 Private Health Insurance [employer] [id number] 2022 Unknown MMO MMO [employer] PPO [id number] 2022-Present [phone] [address] [place] [address] PPO [id number] 1970 Unknown [id number]. 593 1970 Unknown [id number] [id number]. 593 1970 Unknown [id number] [id number]. 1259 1970 Unknown [id number] [id number]. 9 1970 Unknown [id number] 2.16.840.1.366657.3.579.2. 1258 1970 Unknown [id number] 2.16.840.1.416673.3.579.2. 1258 1970 Unknown [id number] 2.16.840.1.141129.3.579.2. 1258 1970 Unknown [id number] 2.16.840.1.729344.3.579.2. 1258 1970 Unknown [id number] 2.16.840.1.226761.3.579.2. 1258 1970 Unknown [id number] 2.16.840.1.360751.3.579.2. 1259 1959 Unknown [id number] 1959 Unknown [id number] Unknown [id number] 2.16.840.1.151048.3.579.2. 531 Unknown [id number] [id number]. 531 Unknown [id number]. 531 Social History Date Type Detail Facility Tobacco smoking stat us NYIS Tobacco smoking consumption unknown [facility] Start: 03-14-2023 End: 03-20-2024 History of Social function [facility] Start: 03-14-2023 End: 03-20-2024 Area Deprivation Index [facility] National Score (1-10 0), lower number is lower risk 61 [facility] Start: 1970 Sex Assigned At Not on file [facility] Start: 1970 Sex Assigned At Female [facility] Start: 10-12-2023 End: 10-26-2023 Tobacco smoking status NHIS Never smoked tobacco (finding) [facility] Start: 04-10-2024 Tobacco use and exposure Smokeless tobacco non-user [facility] Start: 04-10-2024 Alcoholic beverage intake Ex-drinker (finding) [facility] Start: 03-22-2024 Alcoholic beverage intake Current drinker of alcohol (finding) [facility] Do you belong to any clubs or organizations such as jehovah's witness groups, unions, fraternal or athletic groups, or [...] Desired Activity /State Clinical Notes 01-06-2015 to 05-17-2024 Blanka Shaw, PT - 05/17/2024 12:30 PM Marsha Paez APRN.JANITOR HEAD - 05/14/2024 3:30 PM ESTTelephone Encounter - Dana Lozano RN - 05/13/2024 12:55 PM SYBIL Bello - 05/13/2024 9:00 AM EST Note Date & Type Note Facility 05-17-2024 History of Presen t illness Narrative Images from the original note were not included. Physical Therapy Physical Therapy Evaluation Visit Patient Name: Socorro Gallagher Today's Date: 05/17/2024 Reason: Thoracic spine/rib pain Visit number: 1 Subjective: Interim History: Socorro is a 53 yo female that presents today with thoracic spine, rib pain. Symptoms started under her floating ribs in early February. No specific MIKE, however does note sitting painfully through football camp on bleachers a couple days prior to pain starting. 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 Cardiac heart cath was negative. CT scan initially demonstrated small intestinal thickening, and then with contrast was negative. Endoscopy then showed gastroenteritis. She then was referred to pain management, and then spine surgery. Treatment has included medications with minimal to no relief. The only relieve she gets is with Lorazepam which she only occasionally takes for anxiety. 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 She did have right sided sciatic issues which had been doing well prior to this. Pain: Pain is at the inferior medial border of the left scapula, at the rib angle of rib ~10-12 and wraps around anteriorly. Pain feels deep to the anterior ribs 10-12. Also can feel like tightening at the same area. Pain is worse with sitting, driving. Pain is better with standing walking <1 mile, laying on side, laying on stomach. Also better with occasional dose of Lorazepam. Imaging: MRI shows diffuse broad based disc bulges with minimal foraminal encroachment. 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 Precautions: as tolerated Objective: THORACIC AROM: Flexion to toes Extension TL fulcrum, straightening of thoracic spine B rot WFL LL Rot right stiffness at ~35 deg, L ~45 deg Joint play: Thoracic T4-10 gr II PA Muscle length: Decreased B hip flexors with Manfred Test Palpation: TTP, tone through thoracic paraspinals T4-10 Tone left scapular medial border Special Test: - slump, SLR Treatment: Education: HEP education with demonstration, Educated on Eval Findings and POC Manual Therapy: STM, IASTM, joint mobilization, joint manipulation, dry needling Therapeutic Exercise: thoracic mobility, core stability, hip stability Neuromuscular re-education: core stability Modalities: heat, ice, estim Today: IE; manual (thrust manipulation of mid thoracic in prone, upper ribs in supine); ther ex for HEP per flowsheet. Educated on impairments and POC. Assessment: Goal 1: Pt will report >95% improvement in current symptoms. Goal 2: Pt will have normal, pain free AROM of thoracic spine in all planes. Goal 3: Pt will tolerate sitting with no pain. Goal 4: Pt will demo normal thoracic spine joint mobility. Pt will benefit from skilled PT to address the above impairments for 2x/week for 3-6 weeks. I hereby deem this POC medically necessary. Please sign below. Date: documented in this encounter [facility] 05-14-2024 History of Presen t illness Narrative Images from the original note were not included. [facility] Low Back Pain - Chronic (> 12 weeks) Initial Exam SUBJECTIVE HISTORY OF PRESENT ILLNESS: Socorro Gallagher is a 53 year old female who presents with a chief complaint of epigastric pain and thoracic radiculopathy. Patient presents with pain in her epigastric region x 3 months. Denies accident/injury Prior to today's appointment she has been under the care of her mobile paint specialist with MRI thoracic spine imaging completed in regards to thoracic radiculopathy. She states that she is also been seen by GI and underwent endoscopy where she was advised that she has GERD. Patient's Natalya is present with patient consent. States has seen GI and PM : states that she was diagnosed with GERD. 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 Numbness/Tingling: Denies She denies loss of bowel or bladder control, denies dexterity Felty's, denies imbalance. Pain rated 6/10 Pain worse with sitting , walking greater than 2 miles Pain improved with rest, laying on her side, Lorazepam, baclofen Interventions: GI scope , medications, Medications:Baclofen, ibuprofen, naproxen , prednisone Pantoprazole. Buspar., Lorazepam Physical Therapy: None Treating Physicians: Genevieve Feng JANITOR HEAD - PCP Dr Melgar - Plastic Surgery Linda Carrillo PA-C - OBJOSAFAT Costa - Pain management History of Spine Injections/Surgery: 04/25/2023 Gluteal nerve injection, diagnostic - no relief Other Issues Addressed at the Visit Today: None. Precipitating Event: None PAIN EVALUATION 05/13/2024 1009 05/14/2024 1516 Pain Level: 4 6 worse at 8 Pain Location: Abdomen-Mid Upper Back-Upper Description: Aching;Burning;Cramping;Radiati ng;Tightness Sharp;Cramping;Tightness;Stabbi ng Duration Amount of Time: 3 3 Duration Units: Months Months Frequency: Continuous Continuous Intervention/Comfort measure: Medication;Reposition;Pillow support -- Comments: in rib area, under across chest, sometimes down the sides. very mild when i wake up, if i walk it helps as long as its not too long, if i rest during day can keep pain minimal -- Litigation: No Workers' Compensation: No YELLOW & BLUE FLAGS YES-Neg Attitude; Back Pain is Disabling YES-Avoiding Activity (for Fear of Pain) YES-Depression or Anxiety Disorders No-Social Problems No-Substance Use Disorder No-Job Dissatisfaction No-Financial Disincentives Patient Entered Questionnaires 06/19/2023 05/13/2024 Spine Questions Pain Location: Other Other Pain Duration: 1 to 5 years Pain over last 6 months: Every day or nearly every day in the past 6 months Symptoms from neck/cervical spine: No No Employment Status: Working now Involved in law suit/legal claim: No 06/19/2023 Spine Red Flags Any type of cancer: No Unexplained fever: No Bowel or bladder disfunction: No Unintentional weight loss: No Osteoporosis: No PROMIS Score Percentiles 06/19/2023 05/13/2024 Physical Health Physical Function Percentile 38 10 Sleep Percentile 54 34 Fatigue Percentile 79 46 Pain Interference Percentile 18* 5 06/19/2023 05/13/2024 PROMIS SOCIAL ROLE SCORE Social Role Satisfaction Percentile 27* 31 03/16/2023 06/19/2023 04/09/2024 PROMIS Global Health Scale Physical Health Percentile 66 66 22* Mental Health Percentile 34 34 26* Percentiles provide an indication of how the patient's score ranks in relation to the general population. Higher percentile rankings indicate better function/quality of life. 50th percentile is the average of the general population and indicates half of respondents had a worse score. Depression Screenin06/19/2023 PHQ-9 Score 4 06/19/2023 PHQ-9 Self-harm Question Question 9 Not at all PHQ-9 Self-Harm [...] file. No past surgical history on file. Social History Tobacco Use Smoking status: Never Smokeless tobacco: Never Substance Use Topics Alcohol use: Not Currently Drug use: Never No family history on file. ALLERGIES No Known Allergies CURRENT MEDICATIONS: aspirin, enteric coated (ASPIRIN, ENTERIC COATED) 81 [...] mouth. (Patient not taking: Reported on 06/21/2023) REVIEW OF SYSTEMS: PAIN ASSESSMENT: See HPI. [...] or recent MRSA infections. OBJECTIVE: PHYSICAL EXAM Wt 64 kg (141 lb 1.5 oz) BMI 24.99 kg/m GENERAL APPEARANCE: Well appearing, well-hydrated, well [...] Leg Exam Lumbar Range of Motion Flexion 2-4 inches from floor Extension Normal RIGHT LEFT Lateral Bending Full Full Oblique Extension Within Normal Limits Within Normal Limits DTRs Knee Normal Normal Ankle Normal Normal Babinski normal normal Strength of Lower Extremities Extensor Hallux Longus 5/5 5/5 Ankle Dorsiflexion 5/5 5/5 Ankle Plantarflexion 5/5 5/5 Knee Extension 5/5 5/5 Sultana's Exam: Superficial non-anatomic tenderness: No Overreaction: Yes Pain on simulated maneuvers: Yes Straight Leg Raise test discrepancy: No Give-way weakness: No Non-dermatomal sensory loss: No Hip Range of Motion RIGHT LEFT Flexion Normal Normal Extension Normal Normal Abduction Normal Normal Adduction Normal Normal Internal Rotation Normal Normal External Rotation Normal Normal Hip Exam RIGHT LEFT DELORES Exam Normal Normal Trochanteric Bursa Tenderness Normal Normal @ZZCSPINENECKEXAM@ Cervical Range of Motion [...] Wrist Extension 5/5 5/5 Interossei 5/5 5/5 Shoulder Range of Motion RIGHT LEFT Flexion Normal Normal Extension Normal Normal Abduction Normal Normal Adduction Normal Normal Internal Rotation Normal Normal External Rotation Normal Normal Shoulder Tests Neer Impingement Sign - Negative Empty Can Test - Negative Hawkin's-Luis Test - Negative Speed's Test - Negative NEUROSENSORY: Soft touch; Within Normal Limits Abdomen region is soft and nontender. Neuro Tests: None Data Review: [facility] records independently reviewed Images independently reviewed with the patient MRI Thoracic spine 05/02/2024: No cord compression or signal abnormality. No fracture or subluxation. Mild degenerative changes are noted in the mid thoracic spine as above. The bones of the thoracic spine are [...] normal disc, central canal, and neural foramen. XR Thoracic 05/02/2024: There is a slight dextroconvex curvature. There is mild disc height loss at the mid thoracic spine. There is minimal anterior osteophyte formation. No fracture or subluxation. ASSESSMENT/PLAN Thoracic spondylosis (primary encounter diagnosis) 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 Epigastric pain Socorro Gallagher is a 53 year old female with epigastric pain and thoracic radiculopathy. MRI Thoracic spine 05/02/2024: No cord compression or signal abnormality. No fracture or subluxation. Mild degenerative changes are noted in the mid thoracic spine as above. The bones of the thoracic spine are in anatomic alignment. There is preservation of vertebral body. MRI imaging along with thoracic spine dermatomes and probable correlation with current symptoms, and treatment considerations reviewed. At this time she verbalized that she would like to continue with conservative management. Consultation to physical therapy order placed, order was signed and given to patient as she will be attending at facility closer to her residence. Reviewed following up with her mobile paint specialist in regards to possible thoracic spine TALA. She was advised that if mobile paint specialist does not perform this procedure that I will review her case with one of our spine medicine doctors to see if she is a candidate. She will contact office with update. Medications indicated for use reviewed, no changes made to current regimen. Plan of care, red flag signs, when to seek emergent treatment reviewed. 1. Imaging: None 2. Physical Therapy: Consult to 3. Medication: No changes 4. Referrals: None 5. Considerations: Thoracic TALA 6. Follow up: As needed Imaging Ordered: None SIGNATURE: Marsha Landa APRN.CNP PATIENT NAME: Socorro Gallagher DATE: May 14, 2024 TIME:3:14 PM documented in this encounter [facility] 05-14-2024 Note HNO ID: [id number] Author: MARSHA LANDA APRN.CNP Service: ? Author Type: Nurse Practitioner Type: Progress Notes Filed: 05/14/2024 16:32 Note Text: Spine Care Path Low Back Pain - Chronic (> 12 weeks) Initial Exam SUBJECTIVE HISTORY OF PRESENT ILLNESS: Socorro Gallagher is a 53 year old female who presents with a chief complaint of epigastric pain and thoracic radiculopathy. Patient presents with pain in her epigastric region x 3 months. Denies accident/injury Prior to today's appointment she has been under the care of her mobile paint specialist with MRI thoracic spine imaging completed in regards to thoracic radiculopathy. She states that she is also been seen by GI and underwent endoscopy where she was advised that she has GERD. Patient's Natalya is present with patient consent. States has seen GI and PM : states that she was diagnosed with GERD. 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 Numbness/Tingling: Denies She denies loss of bowel or bladder control, denies dexterity Felty's, denies imbalance. Pain rated 6/10 Pain worse with sitting , walking greater than 2 miles Pain improved with rest, laying on her side, Lorazepam, baclofen Interventions: GI scope , medications, Medications:Baclofen, ibuprofen, naproxen , prednisone Pantoprazole. Buspar., Lorazepam Physical Therapy: None Treating Physicians: Genevieve Feng JANITOR HEAD - PCP Dr Melgar - Plastic Surgery Linda Carrillo PA-C - OBGYN Dr. Costa - Pain management History of Spine Injections/Surgery: 04/25/2023 Gluteal nerve injection, diagnostic - no relief Other Issues Addressed at the Visit Today: None. Precipitating Event: None PAIN EVALUATION 05/13/2024 1009 05/14/2024 1516 Pain Level: 4 6 worse at 8 Pain Location: Abdomen-Mid Upper Back-Upper Description: Aching;Burning;Cramping;Radiati ng;Tightness Sharp;Cramping;Tightness;Stabbi ng Duration Amount of Time: 3 3 Duration Units: Months Months Frequency: Continuous Continuous Intervention/Comfort measure: Medication;Reposition;Pillow support -- Comments: in rib area, under across chest, sometimes down the sides. very mild when i wake up, if i walk it helps as long as its not too long, if i rest during day can keep pain minimal -- Litigation: No Workers' Compensation: No YELLOW AND BLUE FLAGS YES-Neg Attitude; Back Pain is Disabling YES-Avoiding Activity (for Fear of Pain) YES-Depression or Anxiety Disorders No-Social Problems No-Substance Use Disorder No-Job Dissatisfaction No-Financial Disincentives Patient Entered Questionnaires 06/19/2023 05/13/2024 Spine Questions Pain Location: Other Other Pain Duration: 1 to 5 years Pain over last 6 months: Every day or nearly every day in the past 6 months Symptoms from neck/cervical spine: No No Employment Status: Working now Involved in law suit/legal claim: No 06/19/2023 Spine Red Flags Any type of cancer: No Unexplained fever: No Bowel or bladder disfunction: No Unintentional weight loss: No Osteoporosis: No PROMIS Score Percentiles 06/19/2023 05/13/2024 Physical Health Physical Function Percentile 38 10 Sleep Percentile 54 34 Fatigue Percentile 79 46 Pain Interference Percentile 18* 5 06/19/2023 05/13/2024 PROMIS SOCIAL ROLE SCORE Social Role Satisfaction Percentile 27* 31 03/16/2023 06/19/2023 04/09/2024 PROMIS Global Health Scale Physical Health Percentile 66 66 22* Mental Health Percentile 34 34 26* Percentiles provide an indication of how the patient's score ranks in relation to the general population. Higher percentile rankings indicate better function/quality of life. 50th percentile is the average of the general population and indicates half of respondents had a worse score. Depression Screenin06/19/2023 PHQ-9 Score 4 06/19/2023 PHQ-9 Self-harm Question Question 9 Not at all PHQ-9 Self-Harm [...] file. No past surgical history on file. Social History Tobacco Use Smoking status: Never Smokeless tobacco: Never Substance Use Topics Alcohol use: Not Currently Drug use: Never No family history on file. ALLERGIES No Known Allergies CURRENT MEDICATIONS: aspirin, enteric coated (ASPIRIN, ENTERIC COATED) 81 mg EC tablet Take 81 mg by mouth. busPIRone (BUSPAR) 5 mg tablet Take 5 mg by mouth. pantoprazo (more content not included)... [facility] 05-13-2024 Telephone encounter Note Neuro SPINE CARE COORDINATION QUICK NOTE Called patient to let her know that we received the thoracic MRI images from 05/02 along with the report. They have been uploaded to her chart. [facility] 05-13-2024 Miscellaneous Notes Neuro SPINE CARE COORDINATION QUICK NOTE Called patient to let her know that we received the thoracic MRI images from 05/02 along with the report. They have been uploaded to her chart. Neuro SPINE CARE COORDINATION QUICK NOTE Spoke with patient and advised her that we don't have any Thoracic MRI images or report yet and [facility] appointment with Marsha tomorrow. She verbalized understanding. I also sent an email to the [employer] to see if they have anything pending for the patient. Socorro is calling Marsha Landa APRN.JANITOR HEAD today to ask if you can see her MRI results from [facility], which are for tomorrow's appointment. They told her they were sent to the [facility], but when she tries to call she just gets disconnected. Please advise. Patient has been identified by name and birthdate. Duration of symptoms: N/A Person calling: self Call patient at: at home [phone] (home) [phone] (cell) Was an appointment scheduled: No Closing statement: Results or non-symptom based questions: Thank you for calling [facility], your call will be returned within the next business day. Genevieve Villafuerte documented in this encounter [facility] 05-13-2024 Telephone encounter Note Neuro SPINE CARE COORDINATION EDEL BASS Spoke with patient and advised her that we don't have any Thoracic MRI images or report yet and to get a CD from [employer] to bring to the appointment with Marsha tomorrow. She verbalized understanding. I also sent an email to the [employer] to see if they have anything pending for the patient. [facility] 05-13-2024 Telephone encounter Note Socorro is calling Marsha Landa APRN.CNP today to ask if you can see her MRI results from [facility], which are for tomorrow's appointment. They told her they were sent to the [facility], but when she tries to call she just gets disconnected. Please advise. Patient has been identified by name and birthdate. Duration of symptoms: N/A Person calling: self Call patient at: at home [phone] (home) [phone] (cell) Was an appointment scheduled: No Closing statement: Results or non-symptom based questions: Thank you for calling [facility], your call will be returned within the next business day. Genevieve Villafuerte [facility] 05-13-2024 History of Presen t illness Narrative [...] nursing note reviewed. Exam conducted with a database support present. Vitals: Estimated body mass index is [...] of: SYBIL Ortiz documented in this encounter [facility] 05-02-2024 History and physical note Note Date/Time May 02, 2024 10:18am [facility] [address] [place] [address] Gastroenterology H&P Signed Patient: Yuri Gallagher MR#: [id number] : 1970 Acct:[id number] Age/Sex: 53 / F Adm Date: 4 Loc: Room: Type: [facility] Attending Dr: Lady Vásquez DO Copies to: DO Genevieve Ramirez APRN, RUBEN~ Date of Service: 05/02/2024 HISTORY & PHYSICAL: [...] signed by Lady Vásquez DO> 05/02/24 1058 [facility] Work Phone: [phone] [facility] History of Present illness Narrative* Cheyanne Toribio RN - 04/25/2024 2:20 PM EDT Radiology [...] SITE APPEARANCE: Clean,Dry and Intact SIGNATURE: Cheyanne Toribio RN PATIENT NAME: Socorro Gallagher DATE: April 25, 2024 TIME: 12:53 PM * Raquel Rosas RT(R) - 04/25/2024 2:20 PM EDT Radiology [...] PATIENT PRESENTS WITH AN IMPLANTABLE OR ATTACHED TAX COMMISSIONER: No RADIOLOGY DEPARTMENT: CT; Exam(s) Completed: Abdomen/Pelvis PERIPHERAL IV DATA: Site assessment: Clean,Dry and Intact, Site disposition Discontinued SIGNED BY: RT Lisa(R) April 25, 2024 2:16 PM documented in this encounter[facility]-2024 NoteHNO ID: [id number] Author: CHEYANNE TORIBIO RN Service: Nursing Author Type: Registered Nurse [...] SITE APPEARANCE: Clean,Dry and Intact SIGNATURE: Cheyanne Toribio RN PATIENT NAME: Socorro Gallagher DATE: April 25, 2024 TIME: 12:53 [facility]10-17-2024 NoteHNO ID: [id number] Author: RAQUEL ROSAS RT(R) Service: ? Author Type: Technologist Type: [...] PATIENT PRESENTS WITH AN IMPLANTABLE OR ATTACHED TAX COMMISSIONER: No RADIOLOGY DEPARTMENT: CT; Exam(s) Completed: Abdomen/Pelvis PERIPHERAL IV DATA: Site assessment: Clean,Dry and Intact, Site disposition Discontinued SIGNED BY: RT Lisa(R) April 25, 2024 2:16 [facility]10-02-2024 NoteHNO ID: [id number] Author: KYLE ZHU MD Service: ? Author [...] by others. Kyle Zhu MD [facility]: [facility] 10[facility] History of Present illness Narrative* Kyle Zhu MD - 04/10/2024 1:36 PM EDT [...] Date: April 10, 2024 documented in this encounterUniversity [facility] NotePatient: Socorro Gallagher Procedure Information Date/Time: 03/18/24 1030 Procedure: Coronary angiography (Left) - PC APPROVED w possible PCI Location: [facility] / [facility] (Cath) Providers: Seda Douglass MD Clinical information reviewed: Physical Exam Airway [...] discussed with attending and fellow. Additional Equipment [facility]sUnOhio[facility]08-26-2024 Note caseUnOhioHealth [facility]08-26-2024 NoteCardiology Clinic Note Chief Complaint: New patient [...] hesitate to contact cardiolog (more content not included)...[facility]12-13-2023 History of Present illness Narrative* Marsha Landa, [facility] - 06/21/2023 8:00 AM EST Images from [...] under the care of pain management in [facility] where she recently underwent a right gluteal nerve block without improvement in symptoms. She states that at postinjection follow-up she was offered a piriformis injection but is reluctant to proceed. She reports that she recently had an EMG completed. EMG results were not available at time of today's appointment. 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 Mortensen - PCP Linda Carrillo PA-C - OBGYSae Costa - Pain management [...] Normal Limits Logroll: Negative Tinel's test: Negative Oxford's test: Negative Prone extension Negative Neuro Tests: [...] 2023 TIME: 7:51 AM documented in this encounterUniversity [facility]12-13-2023 NoteHNO ID: [id number] Author: Marsha Landa APRN.CNP Service: ? Author [...] under the care of pain management in [facility] where she recently underwent a right gluteal nerve block without improvement in symptoms. She states that at postinjection follow-up she was offered a piriformis injection but is reluctant to proceed. She reports that she recently had an EMG completed. EMG results were not available at time of today's appointment. 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 Mortensen - PCP Linda Carrillo PA-C - OBJOSAFAT Costa - Pain management [...] disease. : Denies chapa (more content not included)...[facility] 03-20-2023 History of Present illness Narrative* [...] flanks. Oscar Melgar MD documented in this encounterUniversity [facility]als [facility]04-13-2023 NoteCONSULTATION CONSULTATION DATE: 10/20/2022 TO: Agustin Mortensen [...] our patients to inform us about any [id number] medications or herbal remedies/nutritional supplements/alternative remedies. 2. [...] treatment options with their primary care provider.[facility] [id number] NotePROCEDURE: XR ANKLE RT MIN 3 VIEWS, [...] Electronically authenticated by: CHRISTINA ROBLERO Date: 2022-10-11 11:33[facility]04-04-2023 NotePROCEDURE: XR ANKLE RT MIN 3 VIEWS, [...] Electronically authenticated by: CHRISTINA ROBLERO Date: 2022-10-11 11:33[facility]06-30-2015 Evaluation note* Diagnosis Onset Date Resolution Status Anxiety January 06, 2015 acute Anxiety January 06, 2015 acute Palpitations acute Screening for lipid disorders acute Screening for metabolic disorder acute Screening, deficiency anemia, iron acute Wellness examination acute [facility] Work Phone: Evaluation note* Diagnosis Encounter for cosmetic surgery- Primary Other plastic surgery for unacceptable cosmetic appearance documented in this encounter [facility] Center[facility] noteNo assessment information availableMer[facility] Work Phone: Evaluation note* Diagnosis Right leg pain- Primary Pain in limb Numbness and tingling of right lower extremity Piriformis syndrome, right documented in this encounter [facility]* Diagnosis Onset Date Resolution Status Chest tightness acute Dizziness acute Family history of heart dise ase in male family member before age 55 acute Palpitations acute [facility] Work Phone: evaluation note* Diagnosis Onset Date Resolution Status Chest tightness acute Dizziness acute Family history of heart dise ase in male family member before age 55 acute Palpitations acute Abdominal pain acute Bloating acute [facility] Work Phone: evaluation note* Diagnosis Onset Date Resolution Status Chest tightness acute Dizziness acute Family history of heart dise ase in male family member before age 55 acute Palpitations acute Abdominal pain acute Bloating acute Anxiety January 06, 2015 acute Chest wall pain acute Myocardial bridge acute UTI (urinary tract infection) acute [facility] Work Phone: evaluation note* Diagnosis Abdominal pain, unspecified abdominal location- Primary documented in this encounter [facility]* Diagnosis Abdominal pain, unspecified abdominal location documented in this encounter [facility]* Diagnosis Onset Date Resolution Status Chest tightness acute Dizziness acute Family history of heart dise ase in male family member before age 55 acute Palpitations acute Abdominal pain acute Bloating acute Anxiety January 06, 2015 acute Chest wall pain acute Myocardial bridge acute UTI (urinary tract infection) acute Upper abdominal pain acute [facility] Work Phone: Evaluation note* Diagnosis Well woman exam with routine gynecological exam Routine gynecological examination Other screening mammogram Surgical menopause [facility] Diagnosis Thoracic spondylosis- Primary Thoracic spondylosis without myelopathy 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 Displacement of thoracic intervertebral disc without myelopathy Epigastric pain Abdominal pain, epigastric documented in this encounter [facility]* Diagnosis Thoracic spine pain- Primary Pain in thoracic spine Thoracic spondylosis documented in this encounter [facility] for visit Narrative* Rehabilitation - Outpatient (Routine) - Authorized Specialty Diagnoses / Procedures Referred By Tyson martinez Referred To Contact Physical Therapy Diagnoses Back pain Procedures [place] PHYSICAL THERAPY EVALUATION LOW COMPLEX 20 MINS Blanka Shaw, PT [address] [place] [address] Phone: tel: fax: Blanka Shaw, PT [address] [place] [address] Phone: tel: fax: Referral ID Status Reason Start Date Expiration Date Visits Requested Visits Authorized [id number] Authorized Consult and Treat 05/15/2024 11/11/2024 40 40 [facility] Summary Purpose Family History No Family History [...] Specialty Diagnoses / Procedures Referred By Tyson martinez Referred To Contact CT IMAGING Diagnoses Abdominal pain, unspecified abdominal location Procedures CT ENTEROGRAPHY W IVCON CT ABD & PELVIS W/CONTRAST Kyle Zhu MD [address] [place] [address] [facility] [place] [id number] Referral ID Status Reason Start Date Expiration Date Visits Requested Visits Authorized [id number] Authorized Auto-Generat ed Referral 04/10/2024 05/10/2025 1 1 Referral ID Status Reason Start Date Expiration Date V isits Requested Visits Authorized [id number] Closed Auto-Generate d Referral 04/10/2024 05/10/2025 1 1 Specialty Diagnoses / Procedures Referred By Tyson martinez Referred To Contact [facility] Diagnoses Generalized abdominal pain Thoracic spondylosis 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 Procedures CONSULT TO PHYSICAL THERAPY PHYSICAL THERAPY EVALUATION HIGH COMPLEX 45 MINS Marsha Landa, SENIOR SPEECH PATHOLOGIST.[employer] [address] [place] [address] [facility] [place] [address] Referral ID Status Reason Start Date Expiration Date Visits Requested Visits Authorized [id number] Pending Review Auto-Generat ed Referral 05/14/2024 05/14/2025 1 1 Additional Source Comments INFORMATION SOURCE (unrecogn ized section and content) DATE CREATED AUTHOR 09/08/2020 [facility] DATE CREATED AUTHOR AUTHOR'S ORGANIZ ATION 10/27/2022 [facility] DATE CREATED AUTHOR AUTHOR'S ORGANIZ ATION 04/09/2024 [facility] DATE CREATED AUTHOR AUTHOR'S ORGANIZ ATION 05/16/2024 [facility] DATE CREATED AUTHOR AUTHOR'S ORGANIZ ATION 05/17/2024 [facility] DATE CREATED AUTHOR AUTHOR'S ORGANIZ ATION 05/19/2024 [facility] EPIC Source Comments (unrecognize d section and content) In the event this informatio n is protected by the Federal Confidentiality of Alcohol and Drug Abuse Patient Records regulations: The Federal rules restrict any use of the information to criminally investigate or prosecute any alcohol or drug abuse patient.[facility] the event this information is protected by the Federal Confidentiality of Alcohol and Drug Abuse Patient Records regulations: The Federal rules restrict any use of the information to criminally investigate or prosecute any alcohol or drug abuse patient.[facility] the event this information is protected by the Federal Confidentiality of Alcohol and Drug Abuse Patient Records regulations: The Federal rules restrict any use of the information to criminally investigate or prosecute any alcohol or drug abuse patient.[facility] Center[facility] the event this information is protected by the Federal Confidentiality of Alcohol and Drug Abuse Patient Records regulations: The Federal rules restrict any use of the information to criminally investigate or prosecute any alcohol or drug abuse patient.[facility] Center[facility] the event this information is protected by the Federal Confidentiality of Alcohol and Drug Abuse Patient Records regulations: The Federal rules restrict any use of the information to criminally investigate or prosecute any alcohol or drug abuse patient.[facility] CenterIn the event this information is protected by the Federal Confidentiality of Alcohol and Drug Abuse Patient Records regulations: The Federal rules restrict any use of the information to criminally investigate or prosecute any alcohol or drug abuse patient.[facility] CenterIn the event this information is protected by the Federal Confidentiality of Alcohol and Drug Abuse Patient Records regulations: The Federal rules restrict any use of the information to criminally investigate or prosecute any alcohol or drug abuse patient.[facility] CenterIn the event this information is protected by the Federal Confidentiality of Alcohol and Drug Abuse Patient Records regulations: The Federal rules restrict any use of the information to criminally investigate or prosecute any alcohol or drug abuse patient.[facility] Reason for Visit (unrecogniz ed section and content) Reason Comments Radiology CT Specialty Diagnoses / Procedures Referred By Contac t Referred To Contact CT IMAGING Diagnoses Abdominal pain, unspecified abdominal location Procedures CT ENTEROGRAPHY W IVCON CT ABD & PELVIS W/CONTRAST Kyle Zhu MD [address] [place] [address] [id number] Referral ID Status Reason Start Date Expiration Date V isits Requested Visits Authorized [id number] Closed Auto-Generate d Referral 04/10/2024 05/10/2025 1 1 Reason Comments Consult Reason Comments New Patient Low Back Pain Reason Comments New Patient Per CT small bowel p olyp Reason Comments Gynecologic Exam Reason Comments Patient Question Reason Comments New Patient Thoracic back pain Care Teams (unrecognized sec tion and content) Team Status: Active Member Role Status Dates Agustin Mortensen MD Primary Care Provider Active Team Status: Inactive Member Role Status Dates Agustin Mortensen MD Primary Care Provider Active Jose Guadalupe Costa MD Attending Provider Rajati ve Team Status: Active Member Role Status Dates Genevieve Feng APRN NP-Juice Primary Care Provider Active Team Status: Inactive [...] End: October 12, 2023 Genevieve Feng APRN [employer]CH[employer]IC-C Attending Provider Act star Start: October 12, 2023 End: October 12, 2023 Team Status: Inactive Member Role Status Dates Genevieve Feng APRN [employer] MECH[employer]IC-C Primary Care Provider, Attending Provider Active Start: February 19, 2024 End: February 19, 2024 Team Status: Inactive Member Role Status Dates Genevieve Feng APRN T[employer]AT[employer] PLANT MECHANIC-C Primary Care Provider, Attending Provider Active Start: February 26, 2024 End: February 26, 2024 Team Status: Active Member Role Status Dates Genevieve Feng APRN [employer]ANT MECHANIC-C Primary Care Provider Active Start: March 132023 Seda Douglass MD Attending Provider Active Start: March 13, 2024 Team Status: Inactive Member Role Status Dates Genevieve Feng APRN [employer]ANT MECH[employer]IC-C Primary Care Provider, Attending Provider Active Start: March 21, 2024 End: March 21, 2024 Team Status: Active Member Role Status Dates Genevieve Feng APRN T[employer]AT[employer]ANT MECH[employer]IC-C Primary Care Provider Active Start: March 04, 2024 Sandeep Mcclelland DO Attending Provider Active Sta rt: March 04, 2024 Team Status: Inactive Member Role Status Dates Genevieve Feng APRN [employer] MECH[employer]IC-C Primary Care Provider, Attending Provider Active Start: April 02, 2024 End: April 02, 2024 Team Status: Inactive Member Role Status Dates Genevieve Feng APRN T[employer]ATMENT [employer]ANT MECHANIC-C Attending Provider Act star Start: April 02, 2024 End: April 02, 2024 Team Status: Inactive Member Role Status Dates Genevieve Feng APRN T[employer]AT[employer]ANT MECHANIC-C Attending Provider Active Start: March End: April 02, 2024 PHYSICIAN NO FAMILY Primary Care Provider Active Start: April 02, 2024 End: April 02, 2024 Team Status: Inactive Member Role Status Dates Lady Vásquez DO Attending Provider Active St art: May 01, 2024 End: May 01, 2024 Genevieve Feng APRN [employer] MECH[employer]IC-C Primary Care Provider Active Start: April End: May 01, 2024 Team Status: Active Member Role Status Dates Genevieve Feng APRN T[employer]ATMENT [employer] MECH[employer]IC-C Primary Care Provider Active Start: May 02, 2024 Jose Guadalupe Costa MD Attending Provider Acti ve Start: May 02, 2024 Team Status: Inactive Member Role Status Dates Genevieve Feng APRN T[employer]AT[employer] MECH[employer]IC-C Primary Care Provider Active Start: April End: May 02, 2024 Lady Vásquez DO Attending Provider Active St art: May 02, 2024 End: May 02, 2024 Team Status: Active Member Role Status Dates Genevieve Feng APRN T[employer]ATMENT PLANT MECHANIC-C Primary Care Provider Active Start: April Lady Vásquez DO Attending Provider, Other Provider Active Start: May 02, 2024 Team Status: Inactive Member Role Status Dates Genevieve Feng APRN T[employer]ATMENT [employer] MECH[employer]IC-C Primary Care Provider Active Start: May 02, 2024 End: May 02, 2024 Jose Guadalupe Costa MD Attending Provider Acti ve Start: May 02, 2024 End: May 02, 2024 Auto Bumper Mechanic Relationship Specialty Start Date End Date Agustin Mortensen MD [address] [place] [address] PCP - General Family Medicine 03/16/23 Auto Bumper Mechanic Relationship Specialty Start Date End Date Agustin Mortensen MD [address] [place] [address] PCP - General Family Medicine 03/16/23 Auto Bumper Mechanic Relationship Specialty Start Date End Date Agustin Mortensen MD [address] [place] [address] PCP - General Family Medicine 03/16/23 Goals [...] BE BASED ON THE PRIMARY CLINICAL RECORDS. [employer] [facility]. provides no warranty or guarantee of the accuracy or completeness of information in this document.
== END 2024-05-20 10:53 | disposition home or self-care (01) ==
LOC: NOMS 10:52
PROVIDERS: PCP Nurse Practitioner Family; Visit Provider Obstetrics & Gynecology
DX: N94.9 Unspecified condition associated with female genital organs and menstrual cycle (principal); N83.292 Other ovarian cyst, left side
CPT/HCPCS: 76830; 76856

== ENCOUNTER 2024-06-12 11:31 | Outpatient (OUT) | payer OTHER, SELFPAY ==
--- OUTSIDE RECORDS SUMMARY | 2024-06-12 12:00 | XMS_ITS | CCD ---
Author Organization [facility] Care Team Providers Care Yarn Salvager Name Role Phone DR AGUSTIN MORTENSEN Primary Care Unavailable LAKSHMIPATHY ., NARENDRANATH Admitting Mariella vailable LAKSHMIPATHY ., NARENDRANATH Consulting Mariella vailable LAKSHMIPATHY ., NARENDRANATH Attending Mariella brookilable LORRI BERRY Admitting Unavailable LORRI BERRY Attending Unavailable DR CHRISTINA ROBLERO Consulting Unavailable DR AGUSTIN MORTENSEN Primary Care Unavailable LORRI BERRY Consulting Unavailable Unavailable Primary Care Provider UnavailMD Agustin Ramirez Primary Care Provider MD Jose Guadalupe Costa Attending Provider Unavailable DAGMAR Feng Attending Provider Unavailable Primary Care Provider Unavailfide reeves NO FAMILY, PHYSICIAN Primary Care Provider Unava ilable DAGMAR Feng Primary Care Provider MD Jose Guadalupe Costa Attending Provider Unavailable Ly DO Lady Isidro Attending Provider Agustin Mortensen MD Primary Care Provider Nidaer Kyle Referring Unavailable NidaerAlexandrat Attending Unavailable MARSHA LANDA Attending Unavailable MARSHA LANDA Attending Unavailable Anthonyhner, Kyle Referring Unavailable Anthonyhner, Kyle Referring Unavailable Angelrbacher, Genevieve Primary Care Unavailable Thalia Lady L Admitting Unavailable Ly Lady L Attending Unavailable NO FAMILY, PHYSICIAN Primary Care Unavailable Angelrbyumiko Genevieve Admitting Unavailable Rohrbacher Genevieve Attending Unavailable Porshar Genevieve Primary Care Unavailable Melsisamipathjose maria Narenddebbyath Admitting Unava ilable LakshmipathyRafaelendranath Attending Unava ilable ALGHOTHSREE PENDLETOND Attending Unavailable ALGHOTHANI, MOHAMAD Referring Unavailable ALGHOTHANI, MOHAMAD Attending Unavailable ALGHOTHANI, MOHAMAD Admitting Unavailable ALGHOTHANI, ANA LILIAAMAD Attending Unavailable PetBlanka oliva DO Unavailable BETHANY CHANG Attending Unavailable TONI, LINDA Referring Unavailable TONI, LINDA Attending Unavailable TONI, LINDA Referring Unavailable PETZNICKBLANKA C Attending Unavailable PETZNICK, BLANKA C Referring Unavailable TONI, LINDA Attending Unavailable GUNDLACH, BLANKA D Attending Unavailable GUNDLACH, BLANKA D Referring Unavailable GUNDLACH, BLANKA D Attending Unavailable GUNDLACH, BLANKA D Referring Unavailable GUNDLACH, BLANKA D Attending Unavailable GUNDLACH, BLANKA D Referring Unavailable GUNDLACH, BLANKA D Attending Unavailable GUNDLACH, BLANKA D Referring Unavailable GUNDLACH, BLANKA D Attending Unavailable GUNDLACH, BLANKA D Referring Unavailable GUNDLACH, BLANKA D Attending Unavailable GUNDLACH, BLANKA D Referring Unavailable GUNDLACH, BLANKA D Attending Unavailable GUNDLACH, BLANKA D Referring Unavailable GUNDLACH, BLANKA D Attending Unavailable GUNDLACH, BLANKA D Referring Unavailable Medications Current Medications Medication Drug Class(es) Dates Sig (Normalized) Sig (Original) aspirin 81 mg delayed release oral tablet (20 sources) Platelet Aggregation Inhibitor, Nonsteroidal Anti-inflammatory Drug [...] 04/11/2024 Active estradiol 0.5 mg oral tablet (20 sources) Estrogen Start: 09-14-2023 End: 09-27-2024 take [...] pantoprazole 40 mg delayed release oral tablet (20 sources) Proton Pump Inhibitor Start: 03-22-20 End: [...] Discontinued (Other) tretinoin 0.5 mg/ml topical lotion (20 sources) Retinoid Start: 10-26-19 Tretinoin ([place]) 0.05 [...] Spondylosis; intervertebral disc disorders; other back problems (11 sources) Thoracic spondylosis; Translations: [Spondylosis without myelopathy or radiculopathy, thoracic region] 05-14-2024 Chronic Spondylosis; intervertebral disc disorders; other back problems (11 sources) Radiculopathy, lumbar region; Translations: [Radiculopathy, thoracic region] Onset: 10-26-2022 05-17-2024 Episodic Urinary tract infections (13 sources) Urinary tract infectious disease; Translations: [Urinary tract infection, site not specified] Onset: 04-02-2024 04-02-2024 Episodic Results Test Name Value Interpretation Reference Range Facility IGP,APTIMA HPV,AGE GDLNon AGE GDLN ACOG TESTING Note . [facility] Comment on above: TESTS RESULT FLAG UN ITS REF RANGE LAB Clinician Provided Cytology Information Source.............Vagina No. of containers..01 ThinPrep Vial Age Priscilla Meeks... FLAG LEGEND: L-Low Normal,H-High Normal,LL-Alert Low,HH-Alert High <-Panic Low,>-Panic High,A-Abnormal,AA-Critical Abnormal Performed at: 01 =G [address] [address] Yvette Smart MD, HPV APTIMA Negative Negative [facility] Comment on above: This nucleic acid am plification test detects fourteen high- risk HPV types (16,18,31,33,35,39,45,51,52,56,58,59,66,68) without differentiation. Performed at: =G - [address] [id number] Expanded Duty Dental Assistant: Yvette Smart MD, Phone: [phone] Performed at: - [address] [id number] Expanded Duty Dental Assistant: Yvette Smart MD, Phone: [phone] IGP, APTIMA HPV, RFX 16/18,45 Note . [facility] Comment on above: TESTS RESULT FLAG UN ITS REF RANGE LAB DIAGNOSIS: 02 NEGATIVE FOR INTRAEPITHELIAL LESION OR MALIGNANCY. Specimen adequacy: 02 Satisfactory for evaluation. No endocervical component is identified. Performed by: 02 Nancy Ramirez Data Steward (ASCP) . 02 Note: Note 02 The Pap smear is a screening test designed to aid in the detection of premalignant and malignant conditions of the uterine cervix. It is not a diagnostic procedure and should not be used as the sole means of detecting cervical cancer. Both false-positive and false-negative reports do occur. Test Methodology: Note 02 This liquid based ThinPrep(R) pap test was screened with the use of an image guided system. HPV Genotype Reflex Note 02 Criteria not met, HPV Genotype not performed. FLAG LEGEND: L-Low Normal,H-High Normal,LL-Alert Low,HH-Alert High <-Panic Low,>-Panic High,A-Abnormal,AA-Critical Abnormal Performed at: 02 [facility] [address] [address] Yvette Smart MD, SPATULA-ALONE VAGINA [facility] 05-14-2024 CNOV Office Visit ([facility]) SOCORRO GALLAGHER ([id number]) 1970 F Date Time Provider Department 05/14/24 3:30 PM MARSHA LANDA [facility] During your visit today, we recorded the following information about you: Weight 64 kg Marsha Landa APRN.CNP 05/14/2024 4:32 PM Signed Spine Care Path [...] has been under the care of her painter foreman with MRI thoracic spine imaging completed in [...] pain Pat presesnt 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 Nonsmoker Pain localized to area below [...] Physical Therapy: None Treating Physicians: Genevieve Feng [facility] - PCP Dr Melgar - Plastic Surgery [...] file. ALLERGIES (more content not included)... [facility] SOCORRO GALLAGHER ([id number]) 1970 F Date Time Provider Department 05/13/24 MARSHA LANDA [facility] During your visit today, we recorded the following information about you: Genevieve Barbosa 05/13/2024 12:08 PM Signed Socorro is calling Marsha Landa APRN.[facility] today to ask if you can see her MRI results from [facility], which are for tomorrow's appointment. They told her they were sent to the Imaging [facility], but when she tries to call she just gets disconnected. Please advise. Patient has been identified by name and birthdate. Duration of symptoms: N/A Person calling: self Call patient at: at home [phone] (home) [phone] (cell) Was an appointment scheduled: No Closing statement: Results or non-symptom based questions: Thank you for calling [facility], your call will be returned within the next business day. Dana Duffy, HERBIE 05/13/2024 12:31 PM Signed Neuro SPINE CARE COORDINATION QUICK NOTE Spoke with patient and advised her that we don't have any Thoracic MRI images or report yet and to get a CD from [facility] to bring to the appointment with Marsha tomorrow. She verbalized understanding. I also sent an email to the [employer] to see if they have anything pending for the patient. Dana Lozano, HERBIE 05/13/2024 12:56 PM Signed Neuro SPINE CARE COORDINATION QUICK NOTE Called patient to let her know that we received the thoracic MRI images from 05/02 along with the report. They have been uploaded to her chart. Allergies As of Date: 05/13/2024 (No Known Allergies) Date Reviewed: 04/25/2024 Reviewed by: Cheyanne Toribio RN - Fully Assessed Reason for Visit: Patient Question [6207] Prescriptions as of 05/13/2024 - aspirin, enteric [...] Status:Closed by DANA LOZANO on 05/13/24 Normal [facility] Pathology Request for Lab Co rpon 05-02-2024 Pathology Request for Lab Moy Normal [facility] Comment on above: Order Comment: PATHO LOGY GI SPECIMEN Result Comment: See report. Scanned copy available in EMR. PERFORMED BY: [place] [address] PATHOLOGIST ONCOLOGY NAVIGATOR ANUSHA ROMO M.D. Performed By: #### P ATH TO [facility] #### [address] XR pre/post mri xrayon 05-02 XR pre/post mri xray [facility] [place] [address] MRI Report Signed Patient: Yuri Gallagher MR#: [id number] : 1970 Acct:[id number] Age/Sex: 53 / F ADM Date: 05/02/24 Loc: [facility] Room: Type: [facility] Attending Dr: Jose Guadalupe Costa MD Copies to: Jose Guadalupe Costa Ordering Provider: Jose Guadalupe Costa Date of Service: 05/02/24 MR/MR thoracic spine wo con: THORACIC NEURITIS ([id number]) XR/XR pre/post mri xray: THORACIC NEURITIS MR [...] Austin Marsh M.D.05/02/2024 12:53 PM Dictation Location: [place] [address] Transcribed By: [facility] 05/02/24 1253 Dictated By: Austin Marsh II, MD 05/02/24 1241 Signed By: 05/02/24 1253 Normal [facility] CT ENTEROGRAPHY W IVCONon CT ENTEROGRAPHY W IVCON * * *Final Repor t* * * DATE OF EXAM: Apr 25 2024 2:22PM [facility] 0545 - CT ENTEROGRAPHY W IVCON [...] unilocular left adnexal cyst, stable since 03/23/2023. Media Law Faculty Member: MARISOL Transcribe Date/Time: Apr 25 2024 2:55P Dictated by : ODALIS GALAVIZ MD This examination was interpreted and the report reviewed and electronically signed by: ODALIS GALAVIZ MD on Apr 25 2024 3:13PM EST [id number] CN Normal [facility] CT Small bowel W contrast PO and W contrast Laat 04-25-2024 IMPRESSION: No active small bowel inflammation or acute process in the abdomen/pelvis. 3.6 cm unilocular left adnexal cyst, stable since 03/23/2023. Media Law Faculty Member: MARISOL Transcribe Date/Time: Apr 25 2024 2:55P Dictated by : ODALIS GALAVIZ MD This examination was interpreted and the report reviewed and electronically signed by: ODALIS GALAVIZ MD on Apr 25 2024 3:13PM EST DIVISION OF RADIOLOGY * * *Final Report* * * DATE OF EXAM: Apr 25 2024 2:22PM [facility] 0545 - CT ENTEROGRAPHY W IVCON [...] DIVISION OF RADIOLOGY Provider, [facility] [place] - 04/25/2024 * * *Final Report* * * DATE OF EXAM: Apr 25 2024 2:22PM [facility] 0545 - CT ENTEROGRAPHY W IVCON [...] unilocular left adnexal cyst, stable since 03/23/2023. Media Law Faculty Member: MARISOL Transcribe Date/Time: Apr 25 2024 2:55P Dictated by : ODALIS GALAVIZ MD This examination was interpreted and the report reviewed and electronically signed by: ODALIS GALAVIZ MD on Apr 25 2024 3:13PM EST [facility] Radiology Study observation (narrative) [facility] CT Small bowel W contrast PO and W contrast IVOrdered By: [facility]cf Provider on 04-25-2024 [facility] 25(OH)D3 Jacobo-Stan 2023 25-hydroxyvitamin D3 [Mass/Vol] 39.3 ng/mL Normal 31.0-80.0 [facility] Comment on above: Order Comment: Speci men Type: BLOOD SPECIMEN Ordering Facility: [facility] Address: [address] [place] [address] Result Comment: Clas sification of 25 [place] Vitamin D status: Deficiency/Insufficiency: < or = 30 ng/ml. Sufficiency/Optimal Levels: 31-80 ng/mL Toxicity: > 100 ng/mL. Test performed by chemiluminescent immunoassay. Performed By: #### 1 989-3 #### [facility] CLIA [id number] [address] [place] [address] STATES OF [facility] CBC panel Auto (Bld)on 04-10 Erythrocyte distribution width (RBC) [Ratio] 12.4 % 11.5 - 15.0 % [facility] Hematocrit (Bld) [Volume fraction] 37.7 % 36.0 - 46.0 % [facility] Hemoglobin (Bld) [Mass/Vol] 12.5 g/dL 11.5 - 15.5 g/dL [facility] Interpretation and review of laboratory results Normal [facility] MCH (RBC) [Entitic mass] 30.8 pg 26. 0 - 34.0 pg [facility] MCHC (RBC) [Mass/Vol] 33.2 g/dL 30.5 - 36.0 g/dL [facility] MCV (RBC) [Entitic vol] 92.9 fL 80.0 - 100.0 fL [facility] Nucleated RBC (Bld) [#/Vol] NINF [facility] Platelet mean volume (Bld) [Entitic vol] 10.6 fL 9.0 - 12.7 fL [facility] Platelets (Bld) [#/Vol] 274 10*3/uL [facility] RBC (Bld) [#/Vol] 4.06 10*6/uL 3.90 - 5.2 0 m/uL [facility] WBC (Bld) [#/Vol] 5.79 10*3/uL [facility] Erythrocyte distribution width (RBC) [Ratio] 12.4 % Normal 11.5-15.0 [facility] Comment on above: Order Comment: Speci men Type: BLOOD SPECIMENOrdering Facility: [facility] Address: [address] [place] [address] Performed By: #### 5 8410-2 ####[facility] [id number] [place] [address] [place] Hematocrit (Bld) [Volume fraction] 37.7 % Normal 36.0-46.0 [facility] Comment on above: Order Comment: Speci men Type: BLOOD SPECIMENOrdering Facility: [facility] Address: [address] [place] [address] Performed By: #### 5 8410-2 ####[facility] [id number] [place] [address] [place] Hemoglobin (Bld) [Mass/Vol] 12.5 g/dL Normal 11.5-15.5 [facility] Comment on above: Order Comment: Speci men Type: BLOOD SPECIMENOrdering Facility: [facility] Address: [address] [place] [address] Performed By: #### 5 8410-2 ####[facility] [id number] [place] [address] [place] MCH (RBC) [Entitic mass] 30.8 pg Normal 26.0-34.0 [facility] Comment on above: Order Comment: Speci men Type: BLOOD SPECIMENOrdering Facility: [facility] Address: [address] [place] [address] Performed By: #### 5 8410-2 ####[facility] [id number] [place] [address] [place] MCHC (RBC) [Mass/Vol] 33.2 g/dL Normal 30.5-36.0 [facility] Comment on above: Order Comment: Speci men Type: BLOOD SPECIMENOrdering Facility: [facility] Address: [address] [place] [address] Performed By: #### 5 8410-2 ####[facility] [id number] [place] [address] [place] MCV (RBC) [Entitic vol] 92.9 fL Normal 80.0-100.0 [facility] Comment on above: Order Comment: Speci men Type: BLOOD SPECIMENOrdering Facility: [facility] Address: [address] [place] [address] Performed By: #### 5 8410-2 ####[facility] [id number] [place] [address] [place] Nucleated RBC (Bld) [#/Vol] 10*3/uL Normal <0.01 [facility] Comment on above: Order Comment: Speci men Type: BLOOD SPECIMENOrdering Facility: [facility] Address: [address] [place] [address] Performed By: #### 5 8410-2 ####[facility] [id number] [place] [address] [place] Platelet mean volume (Bld) [Entitic vol] 10.6 fL Normal 9.0-12.7 [facility] Comment on above: Order Comment: Speci men Type: BLOOD SPECIMENOrdering Facility: [facility] Address: [address] [place] [address] Performed By: #### 5 8410-2 ####[facility] [id number] [place] [address] [place] Platelets (Bld) [#/Vol] 274 10*3/uL Normal 150-400 [facility] Comment on above: Order Comment: Speci men Type: BLOOD SPECIMENOrdering Facility: [facility] Address: [address] [place] [id number] Performed By: #### 5 8410-2 ####[facility] [id number] [address] [address] [place] RBC (Bld) [#/Vol] 4.06 10*6/uL Normal 3.90-5.20 [facility] Comment on above: Order Comment: Speci men Type: BLOOD SPECIMENOrdering Facility: [facility] Address: [address] [place] [address] Performed By: #### 5 8410-2 ####[facility] [id number] [place] [id number] [place] WBC (Bld) [#/Vol] 5.79 10*3/uL Normal 3.70-11.00 [facility] Comment on above: Order Comment: Speci men Type: BLOOD SPECIMENOrdering Facility: [facility] Address: [address] [place] [address] Performed By: #### 5 8410-2 ####[facility] [id number] [place] [id number] [place] CRP SerPl-mCncon 04-10-2024 CRP [Mass/Vol] mg/L Normal <0.9 [facility] Comment on above: Order Comment: Speci men Type: BLOOD SPECIMENOrdering Facility: [facility] Address: [address] [place] [address] Performed By: #### 2 4323-8, 1987-11 ####[facility] [id number] [place] [id number] [place] Comprehensive metabolic 2000 panelon 04-10-2024 Albumin [Mass/Vol] 4.5 g/dL Normal 3.9-4.9 [facility] Comment on above: Order Comment: Speci men Type: BLOOD SPECIMENOrdering Facility: [facility] Address: [address] [place] [address] Performed By: #### 2 4323-02, 1987-11 ####[facility] [id number] [place] [address] [place] ALP [Catalytic activity/Vol] 80 U/L Normal 34-123 [facility] Comment on above: Order Comment: Speci men Type: BLOOD SPECIMENOrdering Facility: [facility] Address: [address] [place] [address] Performed By: #### 2 4323-02, 1987-11 ####[facility] [id number] [place] [address] [place] ALT [Catalytic activity/Vol] 14 U/L Normal 7-38 [facility] Comment on above: Order Comment: Speci men Type: BLOOD SPECIMENOrdering Facility: [facility] Address: [address] [place] [address] Performed By: #### 2 4323-02, 1987-11 ####[facility] [id number] [place] [address] [place] Anion gap [Moles/Vol] 12 mmol/L Normal 8-15 [facility] Comment on above: Order Comment: Speci men Type: BLOOD SPECIMENOrdering Facility: [facility] Address: [address] [place] [address] Performed By: #### 2 4323-02, 1987-11 ####[facility] [id number] [place] [address] [place] AST [Catalytic activity/Vol] 26 U/L Normal 13-35 [facility] Comment on above: Order Comment: Speci men Type: BLOOD SPECIMENOrdering Facility: [facility] Address: [address] [place] [address] Performed By: #### 2 43209-14, 1987-11 ####[facility] [id number] [place] [address] [place] Bilirubin [Mass/Vol] 0.2 mg/dL Normal 0.2-1.3 [facility] Comment on above: Order Comment: Speci men Type: BLOOD SPECIMENOrdering Facility: [facility] Address: [address] [place], [place] [address] Performed By: #### 2 43209-14, 1987-11 ####[facility] [id number] [place] [address] [place] Calcium [Mass/Vol] 9.6 mg/dL Normal 8.5-10.2 [facility] Comment on above: Order Comment: Speci men Type: BLOOD SPECIMENOrdering Facility: [facility] Address: [address] [place], [place] [address] Performed By: #### 2 4323-02, 1987-11 ####[facility] [id number] [place] [address] [place] Chloride [Moles/Vol] 102 mmol/L Normal 98-107 [facility] Comment on above: Order Comment: Speci men Type: BLOOD SPECIMENOrdering Facility: [facility] Address: [address] [place] [address] Performed By: #### 2 4323-02, 1987-11 ####[facility] [id number] [place] [address] [place] CO2 [Moles/Vol] 24 mmol/L Normal 22-30 [facility] Comment on above: Order Comment: Speci men Type: BLOOD SPECIMENOrdering Facility: [facility] Address: [address] [place], [place] [address] Performed By: #### 2 43209-14, 1987-11 ####[facility] [id number] [place] [id number] [place] Creatinine [Mass/Vol] 0.78 mg/dL Normal 0.58-0.96 [facility] Comment on above: Order Comment: Speci men Type: BLOOD SPECIMENOrdering Facility: [facility] Address: [address] [place] [address] Performed By: #### 2 4323-8, 1987-11 ####[facility] [id number] [place] [address] [place] Creatinine and Glomerular filtration rate.predicted panel (S/P/Bld) 91 mL/min/1.73m??? Normal >=60 [facility] Comment on above: Order Comment: Roman arriola Type: BLOOD SPECIMENOrdering Facility: [facility] Address: [address] [place] [address] Result Comment: Emelyn mated Glomerular Filtration Rate [...] reflect actual GFR. Performed By: #### 2 4323-8, 1987-11 ####[facility] [id number] [place] [address] [place] Glucose [Mass/Vol] 94 mg/dL Normal 74-99 [facility] Comment on above: Order Comment: Roman arriola Type: BLOOD SPECIMENOrdering Facility: [facility] Address: [address] [place] [address] Result Comment: The [place] Diabetes Association (ADA) provides guidance for cutoff [...] Standards of Medical Care in Diabetes 2016, [place] [employer] Association. Diabetes Care. 2016.39(Suppl 1). Performed By: #### 2 4323-02, 1987-11 ####[facility] [id number] [facility] [address] [address] [place] Potassium [Moles/Vol] 4.5 mmol/L Normal 3.7-5.1 [facility] Comment on above: Order Comment: Speci men Type: BLOOD SPECIMENOrdering Facility: [facility] Address: [address] [place] [address] Performed By: #### 2 4323-02, 1987-11 ####[facility] [id number] [address] [address] [place] Protein [Mass/Vol] 7.7 g/dL Normal 6.3-8.0 [facility] Comment on above: Order Comment: Speci men Type: BLOOD SPECIMENOrdering Facility: [facility] Address: [address] [place] [address] Performed By: #### 2 4323-02, 1987-11 ####[facility] [id number] [place] [id number] [place] Sodium [Moles/Vol] 138 mmol/L Normal 136-144 [facility] Comment on above: Order Comment: Speci men Type: BLOOD SPECIMENOrdering Facility: [facility] Address: [address] [place] [address] Performed By: #### 2 4323-02, 1987-11 ####[facility] [id number] [facility] [address] [address] [place] Urea nitrogen [Mass/Vol] 11 mg/dL Normal 7-21 [facility] Comment on above: Order Comment: Speci men Type: BLOOD SPECIMENOrdering Facility: [facility] Address: [address] [place], [place] [address] Performed By: #### 2 4323-02, 1987-11 ####[facility] [id number] [facility] [address] [address] [place] Office Visiton 04-08-2024 Follow-up visit [id number] Yuri Gallagher 1970 F Date Provider Department Center 04/08/2024 3848-S[facility]A [facility] BRANDY Martin Family History Problem Relation Age of Onset No Known Problems Mother Heart attack Father Coronary artery disease Father's Brother Stroke Paternal Grandfather Family Status - Relation Status Age at Mother Father Father's Brother Paternal Grandfather Level of Service:77847 [place] OFFICE/OUTPATIENT ESTABLISHED LOW MDM 20 MIN Normal [facility] CT [facility] ABDOMEN PELVIS WO IV CONTRAST [...] - challengeon 04-02-2024 Bilirubin Ql (U) Negative [facility] Glucose (U) [Mass/Vol] [facility] Ket[facility] Ql (U) Negative [facility] pH (U) 9.0 [pH] [facility] Specific gravity (U) [Rel density] 1.005 [facility] Urobilinogen (U) [Mass/Vol] 0.2 mg/dL [facility] Laboratory - Microbiology an d Antimicrobial susceptibilityOrdered By: Genevieve Feng on 04-02-2024 Bacteria identified Cx Nom (U) Escherichia coli Abnormal [facility] Laboratory - Specimen inform ationon 04-02-2024 Appearance (U) Clear [facility] Color (U) Clear [facility] Laboratory - Urinalysison Leukocyte esterase Test strip Ql (U) 1+ [facility] Nitrite Ql (U) Negative [facility] Protein Ql (U) Negative [facility] No Panel Informationon 04-02 Urine Occult Blood 3+ [facility] Urine Cultureon 04-02-2024 Bacteria identified Cx Nom (U) ORGANISM: Escherichia coli (O:ESCCOL) Boelus Count >100,000 Aerobic LEXIS Charge (NMIC56) ----- [...] RESISTANT TO ALL B-LACTAM DRUGS. PERFORMED BY: [place] [address] PATHOLOGIST ONCOLOGY NAVIGATOR ANUSHA ROMO M.D. Normal [facility] Comment on above: Performed By: #### C UU #### [facility] [address] 03-18-2024 Attestation signed by Seda Douglass MD at [...] wishes to proceed. Amairani Tinoco MD PGY-4 postal service clerk [facility] NURSNOTEon 03-18-2024 NURSNOTE RN educated pt on d/c instructions. RN encouraged pt to voice any questions or concerns. Pt verbalizes no questions or concerns at this time. Pt was wheeled off of unit with all of belongings. [facility] Basophils Auto (Bld) [#/Vol] on 03-13-2024 Basophils (Bld) [#/Vol] 0.0 10 3/uL 0.0-0.1 [facility] Basophils/100 WBC Auto (Bld) on 03-13-2024 Basophils/100 WBC (Bld) 0.6 % 0.2-2.0 [facility] Eosinophils/100 WBC Auto (Bl d)on 03-13-2024 Eosinophils/100 WBC (Bld) 2.4 % 0.9-7.0 [facility] Erythrocyte distribution wid th Auto (RBC) [Ratio]on 03-13-2024 Erythrocyte distribution width (RBC) [Ratio] 12.0 % 11.0-15.0 [facility] Estimated glomerular filtrat ion rate (GFR) non- Americanon 03-13-2024 GFR/1.73 sq M.predicted among non-blacks MDRD (S/P/Bld) [Vol rate/Area] mL/min/{1.73_m2} >=60 [facility] Hematocrit Auto (Bld) [Volum e fraction]on 03-13-2024 Hematocrit (Bld) [Volume fraction] 36.7 % 36.0-48.0 [facility] Hemoglobin [Mass/volume] in Bloodon 03-13-2024 Hemoglobin (Bld) [Mass/Vol] 12.3 g/dL 12.0-16.0 [facility] Laboratory - Chemistry and C hemistry - challengeon 03-13-2024 Calcium [Mass/Vol] 8.8 mg/dL 8.5-10.1 [facility] Chloride [Moles/Vol] 99 mmol/L 98-107 [facility] CO2 [Moles/Vol] 32.4 mmol/L High 21.0-32.0 [facility] Creatinine [Mass/Vol] 0.66 mg/dL 0.55-1.02 [facility] GFR/1.73 sq M.predicted MDRD (S/P/Bld) [Vol rate/Area] mL/min/{1.73_m2} >=60 [facility] Glucose [Mass/Vol] 97 mg/dL 74-106 [facility] Potassium [Moles/Vol] 4.3 mmol/L 3.5-5.1 [facility] Sodium [Moles/Vol] 136 mmol/L 136-145 [facility] Urea nitrogen [Mass/Vol] 17.0 mg/dL 7.0-18.0 [facility] Urea nitrogen/Creatinine [Mass ratio] 25.8 mg/mg [facility] Laboratory - Hematology and Cell countson 03-13-2024 Immature granulocytes/100 WBC (Bld) 0.0 % 0.0-0.5 [facility] Leukocytes [#/volume] correc alejandra for nucleated erythrocytes in Blood by Automated counon 03-13-2024 WBC corrected for nucl RBC Auto (Bld) [#/Vol] 6.3 10 3/uL 4.0-11.0 [facility] Lymphocytes Auto (Bld) [#/Vo l]on 03-13-2024 Lymphocytes (Bld) [#/Vol] 1.7 10 3/uL 1.2-3.8 [facility] Lymphocytes/100 WBC Auto (Bl d)on 03-13-2024 Lymphocytes/100 WBC (Bld) 27.0 % 20.5-60.0 [facility] MCH Auto (RBC) [Entitic mass ]on 03-13-2024 MCH (RBC) [Entitic mass] 31.1 pg 26.7-34.0 [facility] MCHC Auto (RBC) [Mass/Vol]on 03-13-2024 MCHC (RBC) [Mass/Vol] 33.5 g/dL 29.9-35.2 [facility] MCV Auto (RBC) [Entitic vol] on 03-13-2024 MCV (RBC) [Entitic vol] 92.7 fL 81.0-99.0 [facility] Monocytes Auto (Bld) [#/Vol] on 03-13-2024 Monocytes (Bld) [#/Vol] 0.5 10 3/uL 0.3-0.8 [facility] Monocytes/100 WBC Auto (Bld) on 03-13-2024 Monocytes/100 WBC (Bld) 7.7 % 1.7-12.0 [facility] Neutrophils Auto (Bld) [#/Vo l]on 03-13-2024 Neutrophils (Bld) [#/Vol] 3.9 10 3/uL 1.4-6.5 [facility] Neutrophils/100 WBC Auto (Bl d)on 03-13-2024 Neutrophils/100 WBC (Bld) 62.3 % 43.0-75.0 [facility] No Panel Informationon 03-13 Eosinophils # (Auto) 0.2 10 3/uL 0.0-0.7 [facility] Immature Granulocyte # (Auto) 0.00 10 3/uL 0.00-0.03 [facility] Platelet mean volume Auto (B ld) [Entitic vol]on 03-13-2024 Platelet mean volume (Bld) [Entitic vol] 9.7 fL 9.5-13.5 [facility] Platelets Auto (Bld) [#/Vol] on 03-13-2024 Platelets (Bld) [#/Vol] 246 10 3/uL 150-450 [facility] RBC Auto (Bld) [#/Vol]on RBC (Bld) [#/Vol] 3.96 10 6/uL Low 4.20-5.40 [facility] Serum or plasma anion gap de terminationon 03-13-2024 Anion gap [Moles/Vol] 8.9 mmol/L [facility] DEXA BONE DENSITYon 03-12-20 DEXA BONE DENSITY FINDINGS: Dual Femur bone density obtained with a Videostir whole body system: Region BMD Young-Adult Age-Matched [...] AP Spine bone density obtained with a Videostir whole body system: Region BMD Young-Adult Age-Matched [...] Not Available Office Visiton 03-04-2024 Follow-up visit [id number] Denisha Gallagherdora Felix 1970 Date Provider Department Center 03/04/2024 Cat8-SEDA DOUGLASS BR[facility] Family History Problem Relation Age of Onset No Known Problems Mother Heart attack Father Coronary artery disease Father's Brother Stroke Paternal Grandfather Family Status - Relation Status Age at Mother Father Father's Brother Paternal Grandfather Level of Service:27326 SC OFFICE/OUTPATIENT NEW MODERATE MDM 45 MINUTES Normal [facility] Orders Onlyon 03-04-2024 Orders Only [id number] Denisha Gallagherdora Felix 1970 Provider Department Center 03/04/2024 TANISHA ANDINO BR[facility] Family History Problem Relation Age of Onset No Known Problems Mother Heart attack Father Coronary artery disease Father's Brother Stroke Paternal Grandfather Family Status - Relation Status Age at Mother Father Father's Brother Paternal Grandfather Normal [facility] CNOVon 06-21-2023 [facility] Office Visit ([facility]) GALLAGHERSOCORRO EWING Isidro ([id number]) 1970 F Date Time Provider Department 06/21/23 8:00 AM MARSHA LANDA [facility] During your visit today, we recorded the following information about you: Weight Height 64 kg 1.6 m Marsha Landa, DAGMAR.[employer] G[employer]ER 06/21/2023 9:30 AM Signed [facility] [...] under the care of pain management in [facility] where she recently underwent a right gluteal nerve block without improvement in symptoms. She states that at postinjection follow-up she was offered a piriformis injection but is reluctant to proceed. She reports that she recently had an EMG completed. EMG results were not available at time of today's appointment. 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 Nonsmoker Pain localized to right buttocks [...] prednisone Physical Therapy: Spring 2022 attended at [facility] , she states sessions were not [...] Denies christina (more content not included)... Normal [facility] RAD - Ultrasound Reporton RAD - Ultrasound Report [id number] #1.00CD:127 [facility] Coding Summary.on 07-31-2020 Coding Summary. CODING DATE: 07/31/2020 FINAL [facility] STATUS: Home (Routine DC) PAYOR: [facility] [place] [facility] DESCRIPTION 5373 Level 3 Urology and [...] So Valle Date Saved: 07/31/2020 12:41 pm [facility] Consent for Procedure/Surger yon 07-30-2020 Consent for Procedure/Surgery [id number] 7#1.00CD:127 [facility] Consent for Treatmenton 07-11 Consent for Treatment [id number] #1.00CD:127 [facility] Discharge Instructionson Discharge Instructions [id number]#1.00CD:127 [facility] History and Physicalon 07-30 History and Physical [id number] 2#1.00CD:127 [facility] IntraOperative Documentson 0 07-30-2020 IntraOperative Documents [id number] 9#1.00CD:127 [facility] Main OR Intraoperative Recor don 07-30-2020 Main OR Intraoperative Record IntraOp Document Type FTURO Summary Primary Physician: Sarwat Yadav MD, Facundo Felix Finalized Date/Time: 07/30/20 13:50:41 Pt. Name: YURI GALLAGHER /Sex: 1970 Female Med Rec #: [id number] Physician: Sarwat Yadav MD, Facundo Felix Financial #: [id number] Pt. Type: O Room/Bed: / Admit/Disch: 07/30/20 [...] Marisela Reeves Role Performed Surgeon - Primary Specialist Icu - Primary Scrub - Primary Time In 07/30/20 13:40:00 07/30/20 13:40:00 07/30/20 13:40:00 Time Out 07/30/20 13:51:00 07/30/20 13:51:00 07/30/20 13:51:00 Procedure CYSTOSCOPY LOCAL WITH CYSTOSCOPY LOCAL WITH CYSTOSCOPY LOCAL WITH URETHRAL DILATION(.) URETHRAL DILATION(.) URETHRAL DILATION(.) Comments Last Modified By: Colleen STONER, LUKEOR, Diana Macias RN, LUKEOR, Diana Macias RN, LUKEOR, Diana Avilez 07/30/20 13:50:29 07/30/20 13:50:29 07/30/20 13:50:29 Surgical Procedures FTURO Entry 1 Procedure Description Procedure CYSTOSCOPY LOCAL WITH Modifiers . URETHRAL DILATION Surgeon Description CYSTOSCOPY WITH URETHRAL DILATION- 24-30 Primary Procedure Yes Primary Surgeon Facundo Fam Jr., MD Start 07/30/20 13:46:00 Stop 07/30/20 13:47:00 Anesthesia Type Local Surgical Service Urology Wound Class 2 - Clean-Contaminated Last Modified By: Colleen STONER, LUKEOR, Diana Avilez 07/30/20 13:50:37 General Case Data FTURO Pre-Care [...] Yadav MD, Facundo Felix, Verified (If Participants LYNSEY Macias RN, Lou [...] Lou Ann 07/30/20 13:50 Normal [facility] Main OR Preoperative Recordo n 07-30-2020 Main OR Preoperative Record Holding Area Document Type FTURO Summary Primary Physician: Facundo Fam Jr., MD Finalized Date/Time: 07/30/20 13:41:28 Pt. Name: LUISYURI D.O.B./Sex: 1970 Female Med Rec #: [id number] Physician: Facundo Fam Jr., MD Financial #: [id number] Pt. Type: O Room/Bed: / Admit/Disch: 07/30/20 [...] Lou Ann 07/30/20 13:41 Normal [facility] Operative Reporton 1 Operative Report Patient: [...] urine. The Urethra was dilated to: 28 Azerbaijani w/ sounds. Devices Implanted: None. Removal: Cystoscope is removed, The patient tolerated it well. Postoperative Information Discharge: Patient is discharged home with antibiotic coverage, Follow up arranged. Normal [facility] Comment on above: Result Comment: [...] fever over 100 degrees Normal [facility] Ambulatory Clinical Summaryo n 07-21-2020 Ambulatory Clinical Summary {[id number]}CD:[id number] Normal [facility] Ambulatory Clinical Summary {[id number]}CD:[id number] Normal [facility] Patient Educationon 07-21-19 Patient Education [...] Document Reviewed: 08/03/2012 ExitCare? Patient Information ?2013 Hydrocapsule. [facility] Urology Office/Clinic Noteon 07-21-2020 Urology Office/Clinic Note [...] Will order Local anesthesia. ABX sent to [facility] in [place]. Ordered: Urology Procedure Order US Renal 2. [...] day(s), # 2 tab(s), Refills(s) 0, Pharmacy: [facility]/pharmacy #[id number], 162, cm, 07/21/20 13:48:00 EST, Height/Length Dosing, 68.5, kg, 07/21/20 13:48:00 EST, Weight Dosing Urnls Dip Stick Auto w/o Microscopy POC 45312 I have reviewed the previous health record information and history for this pt. from Dr. Fam. Follow-up With When Contact Information Sarwat Yadav MD, Facundo Felix [address] [place] [address] [place] [address]- Additional Instructions: Patient Education Urinary Tract Infection ILety , personally scribed for Dr. Fam on [...] Protein Urine Dipstick: Negative (07/21/20 13:39:00) Specific [place] Urine Dipstick: 1.020 (07/21/20 13:39:00) Urine Appearance [...] she is been treated with Bactrim DS. [facility] Comment on above: Result Comment: Elec tronically Signed By: Sarwat Yadav MD, Facundo Felix\.br\Date and Time Signed: 07/21/20 14:42 EST\.br\Electronically Co-Signed By: Lety Marino MA\.br\Date and Time Co-Signed: 07/21/20 14:31 EST Vital Signs Date Time Vital Sign Value Performing Clinician Luke manzano 05-14-2024 15:18-0500 Body mass index (BMI) [Ratio] 24.99 kg/m2 Marsha Landa APRN.[employer]ER Work Phone: [facility] 05-14-2024 15:18-0500 Body weight 64 kg Marsha Landa APRN.[employer] Work Phone: [facility] 05-02-2024 11:30-0400 Diastolic blood pressure 80 mm[Hg] PHYSICIAN NO [facility] 05-02-2024 11:30-0400 Heart rate 68 /min PHYSICIAN NO [facility] 05-02-2024 11:30-0400 Respiratory rate 16 /min PHYSICIAN NO [facility] 05-02-2024 11:30-0400 SaO2% (BldA) [Mass fraction] 97 % PHYSICIAN NO [facility] 05-02-2024 11:30-0400 Systolic blood pressure 117 mm[Hg] PHYSICIAN NO [facility] 05-02-2024 10:25-0400 Body height 160.02 cm PHYSICIAN NO [facility] 05-02-2024 10:25-0400 Body temperature 97.1 [degF] PHYSICIAN NO [facility] 05-02-2024 10:25-0400 Body weight 61.23 kg PHYSICIAN NO [facility] 05-01-2024 08:59-0400 Body height 160.02 cm PHYSICIAN NO [facility] 05-01-2024 08:59-0400 Body mass index (BMI) [Ratio] 23.9 kg/m2 PHYSICIAN NO [facility] 05-01-2024 08:59-0400 Body weight 61.23 kg PHYSICIAN NO [facility] 04-10-2024 13:24-0400 Body height 160 cm Kyle Zhu MD Work Phone: [facility] 04-10-2024 13:24-0400 Body mass index (BMI) [Ratio] 23.74 kg/m2 Kyle Zhu MD Work Phone: [facility] 04-10-2024 13:24-0400 Body temperature 98.2 [degF] Kyle Zhu MD Work Phone: [facility] 04-10-2024 13:24-0400 Body weight 60.78 kg Kyle Zhu MD Work Phone: [facility] 04-10-2024 13:24-0400 Diastolic blood pressure 80 mm[Hg] Kyle Zhu MD Work Phone: [facility] 04-10-2024 13:24-0400 Heart rate 77 /min Kyle Zhu MD Work Phone: [facility] 04-10-2024 13:24-0400 SaO2% (BldA) [Mass fraction] 97 % Kyle Zhu MD Work Phone: [facility] 04-10-2024 13:24-0400 Systolic blood pressure 120 mm[Hg] Kyle Zhu MD Work Phone: [facility] 04-02-2024 10:11-0400 Body height 160.02 cm DAGMAR Feng Work Phone: [facility] 04-02-2024 09:07-0400 Body height 160.02 cm [facility] 04-02-2024 09:07-0400 Body mass index (BMI) [Ratio] 25 kg/m2 [facility] 04-02-2024 09:07-0400 Body temperature 97.4 [degF] [facility] 04-02-2024 09:07-0400 Body weight 64.01 kg [facility] 04-02-2024 09:07-0400 Diastolic blood pressure 80 mm[Hg] [facility] 04-02-2024 09:07-0400 Systolic blood pressure 124 mm[Hg] [facility] 03-21-2024 08:26-0400 Body height 160.02 cm [facility] 03-21-2024 08:26-0400 Body mass index (BMI) [Ratio] 24.6 kg/m2 [facility] 03-21-2024 08:26-0400 Body weight 63.04 kg [facility] 03-21-2024 08:26-0400 Diastolic blood pressure 70 mm[Hg] [facility] 03-21-2024 08:26-0400 Heart rate 73 /min [facility] 03-21-2024 08:26-0400 Respiratory rate 18 /min [facility] 03-21-2024 08:26-0400 SaO2% (BldA) [Mass fraction] 99 % [facility] 03-21-2024 08:26-0400 Systolic blood pressure 118 mm[Hg] [facility] 02-26-2024 13:28-0400 Body height 160.02 cm [facility] 02-26-2024 13:28-0400 Body mass index (BMI) [Ratio] 25.1 kg/m2 [facility] 02-26-2024 13:28-0400 Body weight 64.41 kg [facility] 02-26-2024 13:28-0400 Diastolic blood pressure 70 mm[Hg] [facility] 02-26-2024 13:28-0400 Heart rate 80 /min [facility] 02-26-2024 13:28-0400 SaO2% (BldA) [Mass fraction] 98 % [facility] 02-26-2024 13:28-0400 Systolic blood pressure 130 mm[Hg] [facility] 02-19-2024 15:29-0400 Body height 160.02 cm [facility] 02-19-2024 15:29-0400 Body mass index (BMI) [Ratio] 25.3 kg/m2 [facility] 02-19-2024 15:29-0400 Body weight 64.86 kg [facility] 02-19-2024 15:29-0400 Diastolic blood pressure 80 mm[Hg] [facility] 02-19-2024 15:29-0400 Heart rate 87 /min [facility] 02-19-2024 15:29-0400 SaO2% (BldA) [Mass fraction] 98 % [facility] 02-19-2024 15:29-0400 Systolic blood pressure 136 mm[Hg] [facility] 10-12-2023 08:26-0400 Body height 160.02 cm [facility] 10-12-2023 08:26-0400 Body mass index (BMI) [Ratio] 25.1 kg/m2 [facility] 10-12-2023 08:26-0400 Body weight 64.41 kg [facility] 10-12-2023 08:26-0400 Diastolic blood pressure 78 mm[Hg] [facility] 10-12-2023 08:26-0400 Heart rate 78 /min [facility] 10-12-2023 08:26-0400 SaO2% (BldA) [Mass fraction] 98 % [facility] 10-12-2023 08:26-0400 Systolic blood pressure 112 mm[Hg] [facility] 09-14-2023 09:36-0500 Body height 160.02 cm [facility] 09-14-2023 09:36-0500 Body mass index (BMI) [Ratio] 24.6 kg/m2 [facility] 09-14-2023 09:36-0500 Body weight 63.04 kg [facility] 09-14-2023 09:36-0500 Diastolic blood pressure 82 mm[Hg] [facility] 09-14-2023 09:36-0500 Heart rate 88 /min [facility] 09-14-2023 09:36-0500 SaO2% (BldA) [Mass fraction] 98 % [facility] 09-14-2023 09:36-0500 Systolic blood pressure 118 mm[Hg] [facility] 06-21-2023 07:56-0500 Body height 160 cm Marsha Landa APRN.[employer]YER Work Phone: [facility] 06-21-2023 07:56-0500 Body weight 63.96 kg Marsha Landa STRINGS TEACHER.[employer]YER Work Phone: [facility] 03-20-2023 08:57-0400 Body height 160 cm JAM Melgar MD Work Phone: [facility] 03-20-2023 08:57-0400 Body weight 61.24 kg JAM Melgar MD Work Phone: [facility] Encounters Encounter Date Encounter Type Care Provider Facility Start: 06-12-2024 End: 06-12-2024 Bamboo flowsheet Blanka Mercer PT Work Phone: [facility] Start: 06-12-2024 End: 06-12-2024 Bamboo flowsheet Blanka D Gundlach PT Work Phone: [facility] Start: 06-12-2024 End: 06-12-2024 ambulatory Blanka D Gundlach PT Work Phone: [facility] Comment on above: Thoracic spine pain (Primary Dx); Thoracic spondylosis Start: 06-10-2024 End: 06-10-2024 Bamboo flowsheet Blanka D Gundlach PT Work Phone: [facility] Start: 06-10-2024 End: 06-10-2024 Bamboo flowsheet Blanka D Gundlach PT Work Phone: [facility] Start: 06-10-2024 End: 06-10-2024 ambulatory Blanka D Gundlach PT Work Phone: [facility] Comment on above: Thoracic spine pain (Primary Dx); Thoracic spondylosis Start: 06-05-2024 End: 06-08-2024 ambulatory Blanka D Gundlach PT Work Phone: [facility] Comment on above: Thoracic spine pain (Primary Dx); Thoracic spondylosis Start: 06-05-2024 End: 06-05-2024 Bamboo flowsheet Blanka D Gundlach PT Work Phone: [facility] Start: 06-05-2024 End: 06-05-2024 Bamboo flowsheet Blanka D Gundlach PT Work Phone: [facility] Start: 06-03-2024 End: 06-03-2024 Bamboo flowsheet Blanka D Gundlach PT Work Phone: [facility] Start: 06-03-2024 End: 06-03-2024 Bamboo flowsheet Blanka D Gundlach PT Work Phone: [facility] Start: 06-03-2024 End: 06-03-2024 ambulatory Blanka D Gundlach PT Work Phone: [facility] Comment on above: Thoracic spine pain (Primary Dx); Thoracic spondylosis Start: 05-31-2024 End: 05-31-2024 Bamboo flowsheet Blanka D Gundlach PT Work Phone: [facility] Start: 05-31-2024 End: 05-31-2024 Bamboo flowsheet Blanka D Gundlach PT Work Phone: [facility] Start: 05-31-2024 End: 05-31-2024 ambulatory Blanka D Gundlach PT Work Phone: [facility] Comment on above: Thoracic spine pain (Primary Dx); Thoracic spondylosis Start: 05-29-2024 End: 05-29-2024 Bamboo flowsheet Blanka D Gundlach PT Work Phone: [facility] Start: 05-29-2024 End: 05-29-2024 Bamboo flowsheet Blanka D Gundlach PT Work Phone: [facility] Start: 05-29-2024 End: 05-29-2024 ambulatory Blanka D Gundlach PT Work Phone: [facility] Comment on above: Thoracic spine pain (Primary Dx); Thoracic spondylosis Start: 05-24-2024 End: 05-24-2024 Bamboo flowsheet Blanka D Gundlach PT Work Phone: [facility] Start: 05-24-2024 End: 05-24-2024 Bamboo flowsheet Blanka D Gundlach PT Work Phone: [facility] Start: 05-24-2024 End: 05-24-2024 ambulatory Blanka D Gundlach PT Work Phone: [facility] Comment on above: Thoracic spine pain (Primary Dx); Thoracic spondylosis Start: 05-22-2024 End: 05-22-2024 Bamboo flowsheet Blanka D Gundlach PT Work Phone: [facility] Start: 05-22-2024 End: 05-22-2024 Bamboo flowsheet Blanka Fentonmariamarene PT Work Phone: [facility] Start: 05-22-2024 End: 05-22-2024 ambulatory Blanka Mercer PT Work Phone: [facility] Comment on above: Thoracic spine pain (Primary Dx); Thoracic spondylosis Start: 05-17-2024 End: 05-17-2024 Bamboo flowsheet Blanka Fentonmariamarene PT Work Phone: [facility] Start: 05-17-2024 End: 05-17-2024 Bamboo flowsheet Blanka Mercer PT Work Phone: [facility] Start: 05-17-2024 End: 05-17-2024 ambulatory Blanka Mercer PT Work Phone: [facility] Comment on above: Thoracic spine pain (Primary Dx); Thoracic spondylosis Start: 05-14-2024 End: 05-14-2024 ambulatory MARSHA LANDA Facility:[facility] Start: 05-14-2024 End: 05-14-2024 Patient encounter procedure Marsha Landa APRN.[employer] G[employer]YER Work Phone: [facility] Comment on above: Thoracic spondylosis (Primary Dx); 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; Epigastric pain Start: 05-13-2024 End: 05-13-2024 Bamboo flowsheet Linda DEVINE Work Phone: [facility] Start: 05-13-2024 End: 05-22-2024 Bamboo flowsheet Linda DEVINE Work Phone: [facility] Start: 05-13-2024 End: 05-22-2024 Clinisync Result Encounter Linda DEVINE Work Phone: [facility] Unsolicited Start: 05-13-2024 End: 05-13-2024 Telephone encounter Marsha Landa APRN.[employer]YER Work Phone: [facility] Comment on above: Patient Question Start: 05-13-2024 End: 05-13-2024 Patient encounter procedure Linda DEVINE Work Phone: [facility] [facility] Start: 05-13-2024 End: 05-13-2024 Periodic preventive med est patient 40-64yrs Linda DEVINE Work Phone: [facility] Comment on above: Well woman exam with routine gynecological exam; Other screening mammogram; Surgical menopause Start: 05-13-2024 End: 05-13-2024 ambulatory LINDA CARRILLO Not Available Start: 05-02-2024 Non-patient / Non-visit PHYSICIAN NO [facility] Work Phone: Start: 05-02-2024 End: 05-02-2024 Admission to same day surgery center PHYSICIAN NO [facility] Work Phone: Start: 05-02-2024 End: 05-02-2024 ambulatory PHYSICIAN NO [facility] Work Phone: Start: 05-02-2024 End: 05-02-2024 Patient encounter procedure PHYSICIAN NO [facility] [address] Work Phone: Start: 05-02-2024 End: 05-02-2024 ambulatory PHYSICIAN NO [facility] Work Phone: Start: 05-01-2024 End: 05-01-2024 ambulatory PHYSICIAN NO [facility] Work Phone: Start: 05-01-2024 End: 05-01-2024 Patient encounter procedure PHYSICIAN NO [facility] Work Phone: Start: 04-25-2024 End: 04-25-2024 ambulatory Kyle Alva Facility:[facility] Start: 04-25-2024 End: 04-25-2024 Subsequent hospital visit by physician Ct Prep [facility] Radiology Ct Scan Comment on above: Abdominal pain, unsp ecified abdominal location [R10.9] Start: 04-10-2024 End: 04-10-2024 Patient encounter procedure Kyle Zhu MD Work Phone: Gastroenterology Comment on above: Abdominal pain, unsp ecified abdominal location (Primary Dx) Start: 04-10-2024 End: 04-10-2024 ambulatory Kyle Zhu Facility:[facility] Start: 04-08-2024 End: 04-08-2024 ambulatory [facility] Start: 04-02-2024 End: 04-02-2024 ambulatory BLANKA AGUIRRE Not Available Start: 04-02-2024 End: 04-02-2024 Patient encounter procedure [facility] Physician [facility] Work Phone: Start: 04-02-2024 End: 04-02-2024 ambulatory PHYSICIAN YARELI CISNEROS [facility] Work Phone: Start: 04-02-2024 End: 04-02-2024 Departed Referred STRINGS TEACHER Genevieve Feng Work Phone: [facility] [place] Work Phone: Start: 03-22-2024 End: 03-22-2024 ambulatory BLANKA AGUIRRE Not Available Start: 03-21-2024 End: 03-21-2024 ambulatory [facility] Work Phone: Start: 03-21-2024 End: 03-21-2024 Patient encounter procedure [facility] Physician [facility] Work Phone: Start: 03-18-2024 End: 03-18-2024 ambulatory [facility] Start: 03-18-2024 End: 03-18-2024 ambulatory [facility] Start: 03-13-2024 Non-patient / Non-visit [facility] Physician [facility] Work Phone: Start: 03-12-2024 End: 03-12-2024 ambulatory LINDA CARRILLO Not Available Start: 03-05-2024 End: 03-05-2024 ambulatory LINDA CARRILLO Not Available Start: 03-04-2024 Non-patient / Non-visit [facility] Work Phone: Start: 03-04-2024 End: 03-04-2024 ambulatory [facility] Start: 02-26-2024 End: 02-26-2024 ambulatory [facility] Work Phone: Start: 02-26-2024 End: 02-26-2024 Patient encounter procedure [facility] Work Phone: Start: 02-19-2024 End: 02-19-2024 ambulatory [facility] Work Phone: Start: 02-19-2024 End: 02-19-2024 Patient encounter procedure [facility] Work Phone: Start: 10-26-2023 End: 10-26-2023 ambulatory BETHANY CHANG Not Available Start: 10-12-2023 Patient encounter status [facility] Start: 10-12-2023 End: 10-12-2023 ambulatory [facility] Work Phone: Start: 10-12-2023 End: 10-12-2023 Encounter for general adult medical examination without abnormal findings [facility] Start: 10-12-2023 End: 10-12-2023 Patient encounter procedure [facility] Work Phone: Start: 09-14-2023 End: 09-14-2023 Patient encounter procedure [facility] Work Phone: Start: 06-21-2023 End: 06-21-2023 ambulatory MARSHA LANDA Facility:[facility] Start: 06-21-2023 End: 06-21-2023 Patient encounter procedure Marsha Landa STRINGS TEACHER.SPENT GRAIN DRYER Work Phone: [facility] Comment on above: Right leg pain (Prim antonietta Dx); Numbness and tingling of right lower extremity; Piriformis syndrome, right Start: 06-12-2023 End: 06-12-2023 ambulatory LINDA CARRILLO Not Available Start: 03-23-2023 End: 03-23-2023 ambulatory MD Agustin Mortensen Work Phone: [facility] Work Phone: Start: 03-23-2023 End: 03-23-2023 Patient encounter procedure MD Agustin Mortensen Work Phone: [facility] [address] Work Phone: Start: 03-20-2023 End: 03-20-2023 Patient encounter procedure Oscar Melgar MD Work Phone: Plastic Surgery Comment on above: Encounter for cosmet ic surgery (Primary Dx) Start: 10-20-2022 End: 10-21-[address] AGUSTIN MORTENSEN Facility:[facility] Start: 10-11-2022 End: 10-12-2022 ambulatory LORRI BERRY Facility:[facility] Procedures Date Procedure Procedure Detail Performing Clinician Start: 05-13-2024 IGP,APTIMA HPV,AGE GDLN Linda DEVINE Work Phone: Start: 05-02-2024 Esophagogastroduodenoscopy PHYSICIAN NO FAMILY Start: [...] Screening for malign ant neoplasm of cervix [facility] Start: 04-10-2027 Diabetes Screening Diabetes Screenin [facility] Start: 01-30-2026 Diabetes Screening Diabetes Screenin g [facility] Start: 05-15-2025 End: 05-15-2025 Patient encounter procedure 05/15/2025 11:00 AM EST Office Visit [facility] [address] [place] [phone] Linda Carrillo PA [address] [place] [address] [facility] Start: 10-24-2024 End: 10-24-2024 Patient encounter procedure 10/24/2024 8:40 AM EDT Office Visit [facility] [address] [place] [phone] Bethany Chang, STRINGS TEACHER-SPENT GRAIN DRYER [address] [place] [address] [facility] Start: 08-01-2024 End: 08-01-2024 Professional / ancillary services management 08/01/2024 8:30 AM EST Ancillary Procedure [facility] [place] [address] [place] [phone] [facility] [place] Start: 06-27-2024 End: 06-27-2024 ambulatory 06/27/2024 4:30 PM EST Treatment [facility] [address] [place] [phone] Мария Alaniz, GENE [facility] Start: 06-25-2024 End: 06-25-2024 ambulatory 06/25/2024 5:00 PM EST Treatment [facility] [address] [place] [phone] Blanka Mercer, PT [address] [place] [address] [facility] Start: 06-23-2024 Screening for malign ant neoplasm of colon [facility] Start: 06-20-2024 End: 06-20-2024 ambulatory 06/20/2024 5:00 PM EST Treatment [facility] [address] [place] [phone] Мария Alaniz PTA [facility] Start: 06-18-2024 End: 06-18-2024 ambulatory 06/18/2024 5:00 PM EST Treatment [facility] [address] [place] [phone] Blanka Mercer, PT [address] [place] [address] [facility] Start: 06-12-2024 Screening for malign ant neoplasm of breast [facility] Start: 06-12-2024 End: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 disconnected. Please advise. Patient has been identified by name and birthdate. Duration of symptoms: N/A Person calling: self Call patient at: at home [phone] (home) [phone] (cell) Was an appointment scheduled: No Closing statement: Results or non-symptom based questions: Thank you for calling [facility], your call will be returned within the next business day. Genevieve Castañeda Pss documented in this encounter [facility] 05-13-2024 Telephone encounter Note Neuro SPINE CARE COORDINATION QUICK NOTE Spoke with patient and advised her that we don't have any Thoracic MRI images or report yet and to get a CD from [facility] to bring to the appointment with Marsha tomorrow. She verbalized understanding. I also sent an email to the [employer] library to see if they have anything pending for the patient. [facility] 05-13-2024 Telephone encounter Note Socorro is calling Marsha Landa APRN.CNP today to ask if you can see her MRI results from [facility], which are for tomorrow's appointment. They told her they were sent to the Imaging Library, but when she tries to call she just gets disconnected. Please advise. Patient has been identified by name and birthdate. Duration of symptoms: N/A Person calling: self Call patient at: at home [phone] (home) [phone] (cell) Was an appointment scheduled: No Closing statement: Results or non-symptom based questions: Thank you for calling [facility], your call will be returned within the next business day. Genevieve Castañeda Pss [facility] 05-13-2024 History of Presen t [...] nursing note reviewed. Exam conducted with a print producer present. Vitals: Estimated body mass index is [...] note Note Date/Time May 02, 2024 10:18am [facility] [address] [place] [address] Gastroenterology H&P Signed Patient: Yuri Gallagher MR#: [id number] : 1970 Acct:[id number] Age/Sex: 53 / F Adm Date: 4 Loc: Room: Type: [facility] Attending Dr: Lady Vásquez DO Copies to: Lady Vásquez, DO Genevieve Feng APRN, SPENT GRAIN DRYER~ Date of Service: 05/02/2024 HISTORY & PHYSICAL: [...] signed by Lady Vásquez DO> 05/02/24 1058 [facility] Work Phone: [phone] [facility] History of Present illness Narrative* Cheyanne Toribio [...] PATIENT PRESENTS WITH AN IMPLANTABLE OR ATTACHED DECK SCALER: No RADIOLOGY DEPARTMENT: CT; Exam(s) Completed: Abdomen/Pelvis PERIPHERAL IV DATA: Site assessment: Clean,Dry and Intact, Site disposition Discontinued SIGNED BY: RT Lisa(R) April 25, 2024 2:16 PM [facility] NoteHNO ID: [id number] Author: CHEYANNE TORIBIO RN Service: Nursing Author [...] Gallagher DATE: April 25, 2024 TIME: 12:53 [facility]10-17-2024 NoteHNO ID: [id number] Author: RAQUEL ROSAS, RT(R) Service: ? Author Type: Technologist Type: [...] PATIENT PRESENTS WITH AN IMPLANTABLE OR ATTACHED DECK SCALER: No RADIOLOGY DEPARTMENT: CT; Exam(s) Completed: Abdomen/Pelvis PERIPHERAL IV DATA: Site assessment: Clean,Dry and Intact, Site disposition Discontinued SIGNED BY: RT Lisa(R) April 25, 2024 2:16 [facility]10-02-2024 NoteHNO ID: [id number] Author: KYLE ZHU MD Service: ? Author [...] by others. Kyle Zhu MD Date: [facility] 10[facility] History of Present illness Narrative* [...] PFSH and ROS obtained by others. Kyle hZu MD Date: April 10, 2024 [facility] NoteCardiology Clinic Note Chief Complaint: New patient for chest pain HPI: Socorro Gallagher is a 53 y.o. female with no significant past medical history that is referred to Cardiology clinic for abnormal stress test. Patient reports that stress test was performed due to upper abdominal pain/lower chest pain. This has started and worsened over the past month or so. Given abnormal stress test, cardiac catheterization was performed. Patient was noted to have mild to moderate nonobstructive disease in her LAD. She presents today for follow-up. Overall, she is doing well. She is convinced that her chest pain was from her anxiety. This has been doing somewhat better, although not completely resolved. ROS 10 point ROS is performed and [...] Prior to Visit Medication Sig Dispense Refill aspirin 81 mg EC tablet Take 81 mg by mouth in the morning. busPIRone (Buspar) 5 mg tablet Take 5 mg by mouth two times daily. estradiol (Estrace) 0.5 mg tablet Take 0.5 mg by mouth in the morning. Pt is taking half a pill LORazepam (Ativan) 0.5 mg tablet Take 0.5 mg by mouth every 6 (six) hours if needed for anxiety. pantoprazole (ProtoNix) 40 mg EC tablet Take 40 mg by mouth before breakfast. metoprolol succinate XL (Toprol-XL) 25 mg 24 hr tablet Take 1 tablet (25 mg) by mouth in the morning. Do not crush or chew. (Patient not taking: Reported on 04/08/2024) 90 tablet 3 rosuvastatin (Crestor) 20 mg tablet Take 1 tablet (20 mg) by mouth in the morning. (Patient not taking: Reported on 04/08/2024) 90 tablet 3 No current facility-administered medications on file prior to visit. Allergies Patient has no known allergies. Physical Exam VITAL SIGNS: BP 122/86 (BP Location: Left arm, Patient Position: Sitting) Pulse 85 Ht 1.6 m (5' 3 ) Wt 63 kg (139 lb) SpO2 96% BMI 24.62 kg/m??? Constitutional: Well developed, Well nourished, No [...] (from the past 4464 hour(s)). Echo results: Transthoracic echo (TTE) complete Result Date: 03/18/2024 1 1 [facility] Heart Station [address] [place] [address] [phone] (fax) Echocardiogram-[facility] Name: YURI GALLAGHER Study Date: 03/18/2024 09:23 AM B/P: / HR: 68 bpm Date of : 1970 Location: [facility] Height: 63 in. Age: 53 year(s) Patient Room: Weight: 141 lb. Gender: Female Patient Status: OutPt BSA: 1.67 m2 Indication: Chest Pain, +stress, Shortness of Breath, Palpitations Examination: Echocardiogram (Complete) Image Quality: Fair Patient Consent: Procedure explained to patient Conclusions Left Ventricle: The left ventricle is normal size. Global left ventricular systolic function is normal. The EF is 55 % visually. Left ventricular wall thickness is normal. Unable to assess diastolic dysfunction. No left ventricular hypertrophy. Right Ventricle: The right ventricle is normal in size. Normal right ventricular systolic function. Unable to assess right sided pressures due to lack of measurable tricuspid regurgitation. Left Atrium: The left atrium is normal in size. Measurements Left Ventricle Label Value Normal Value LVOTd 1.9 cm (18cm - 20cm) LVOT VTI 20.7 cm (18cm - 22cm) LVOT PGmax 5 mmHg LVEF visual 55 % LVDd, 2D 4.35 cm (3.9cm - 5.3cm) LVDs, 2D 2.76 cm (2.1cm - 4cm) IVSd, 2D 0.71 c (more content not included)...[facility]09-09-2024 NotePatient: Socorro Gallagher Procedure Information Date/Time: 03/18/24 1030 Procedure: Coronary angiography (Left) - PC APPROVED w possible PCI Location: [facility] ORDER ENTRY CLERK 3 / [facility] (Cath) Providers: Seda Douglass [...] discussed with attending and fellow. Additional [facility]Un[facility] Note caseUnMetroHealth [facility]08-26-2024 NoteCardiology Clinic Note Chief Complaint: [...] hesitate to contact cardiolog (more content not included)...[facility]12-13-2023 History of Present illness Narrative* Marsha Landa, DAGMAR.SPENT GRAIN DRYER - 06/21/2023 8:00 AM EST Images from [...] under the care of pain management in [facility] where she recently underwent a right gluteal nerve block without improvement in symptoms. She states that at postinjection follow-up she was offered a piriformis injection but is reluctant to proceed. She reports that she recently had an EMG completed. EMG results were not available at time of today's appointment. 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 Nonsmoker Pain localized to right buttocks [...] prednisone Physical Therapy: Spring 2022 attended at [facility] , she states sessions were not [...] Normal Limits Logroll: Negative Tinel's test: Negative Dawson's test: Negative Prone extension Negative Neuro Tests: [...] 2023 TIME: 7:51 AM documented [facility]-2023 NoteHNO ID: [id number] Author: Marsha Landa APRN.RUBEN Service: ? Author Type: Nurse Practitioner Type: [...] under the care of pain management in [facility] where she recently underwent a right gluteal nerve block without improvement in symptoms. She states that at postinjection follow-up she was offered a piriformis injection but is reluctant to proceed. She reports that she recently had an EMG completed. EMG results were not available at time of today's appointment. 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 : Denies chapa (more content not included)...[facility] 03-20-2023 History of Present illness [...] flanks. Oscar Melgar MD documented [facility]-2023 NoteCONSULTATION CONSULTATION DATE: 10/20/2022 TO: Agustin Mortensen, M.D. CHIEF COMPLAINT: Includes right leg pain. [...] our patients to inform us about any [id number] medications or herbal remedies/nutritional supplements/alternative remedies. 2. [...] treatment options with their primary care provider.[id number] NotePROCEDURE: XR ANKLE RT MIN 3 VIEWS, [...] authenticated by: CHRISTINA ROBLERO Date: 2022-10-11 11:33[facility]04-04-2023 NotePROCEDURE: XR ANKLE RT MIN 3 VIEWS, [...] authenticated by: CHRISTINA ROBLERO Date: 2022-10-11 11:33[facility]06-30-2015 Evaluation note* Diagnosis Onset Date Resolution Status Anxiety January 06, 2015 acute Anxiety January 06, 2015 acute Palpitations acute Screening for lipid disorders acute Screening for metabolic disorder acute Screening, deficiency anemia, iron acute Wellness examination acute [facility] Work Phone: Evaluation note* Diagnosis Encounter for cosmetic surgery- Primary Other plastic surgery for unacceptable cosmetic appearance documented in this encounter [facility] noteNo assessment information availableKind[facility] Work Phone: Evaluation note* Diagnosis Right leg pain- Primary Pain in limb Numbness and tingling of right lower extremity Piriformis syndrome, right documented in this encounter [facility] note* Diagnosis Onset Date Resolution Status Chest tightness acute Dizziness acute Family history of heart dise ase in male family member before age 55 acute Palpitations acute [facility] Work Phone: Evaluation note* Diagnosis Onset Date Resolution Status Chest tightness acute Dizziness acute Family history of heart dise ase in male family member before age 55 acute Palpitations acute Abdominal pain acute Bloating acute [facility] Work Phone: Evaluation note* Diagnosis Onset Date Resolution Status Chest tightness acute Dizziness acute Family history of heart dise ase in male family member before age 55 acute Palpitations acute Abdominal pain acute Bloating acute Anxiety January 06, 2015 acute Chest wall pain acute Myocardial bridge acute UTI (urinary tract infection) acute [facility] Work Phone: Evaluation note* Diagnosis Abdominal pain, unspecified abdominal location- Primary [facility] Diagnosis Abdominal pain, unspecified abdominal location [facility]* Diagnosis Onset Date Resolution Status Chest tightness acute Dizziness acute Family history of heart dise ase in male family member before age 55 acute Palpitations acute Abdominal pain acute Bloating acute Anxiety January 06, 2015 acute Chest wall pain acute Myocardial bridge acute UTI (urinary tract infection) acute Upper abdominal pain acute [facility] Work Phone: Evaluation note* Diagnosis Well woman exam with routine gynecological exam Routine gynecological examination Other screening mammogram Surgical menopause documented in this encounter [facility] HealthcareEvaluation note* Diagnosis Thoracic spondylosis- Primary Thoracic spondylosis without myelopathy 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 Displacement of thoracic intervertebral disc without myelopathy Epigastric pain Abdominal pain, epigastric [facility] Diagnosis Thoracic spine pain- Primary Pain in thoracic spine Thoracic spondylosis documented in this encounter [facility] HealthcareEvaluation note* Diagnosis Thoracic spine pain- Primary Pain in thoracic spine Thoracic spondylosis documented in this encounter [facility] HealthcareEvaluation note* Diagnosis Thoracic spine pain- Primary Pain in thoracic spine Thoracic spondylosis documented in this encounter [facility] HealthcareEvaluation note* Diagnosis Thoracic spine pain- Primary Pain in thoracic spine Thoracic spondylosis documented in this encounter [facility] HealthcareEvaluation note* Diagnosis Thoracic spine pain- Primary Pain in thoracic spine Thoracic spondylosis documented in this encounter [facility] HealthcareReason for visit Narrative* Rehabilitation - Outpatient (Routine) - Authorized Specialty Diagnoses / Procedures Referred By Tyson t Referred To Contact Physical Therapy Diagnoses Back pain Procedures SC PHYSICAL THERAPY EVALUATION LOW COMPLEX 20 MINS Blanka Mercer, PT [address] [place] [address] Phone: tel: fax: Blanka Mercer, PT [address] [place] [address] Phone: tel: fax: Referral ID Status Reason Start Date Expiration Date Visits Requested Visits Authorized [id number] Authorized Consult and Treat 05/15/2024 11/11/2024 40 40 [facility] Summary Purpose Family History Relationship [...] & PELVIS W/CONTRAST Kyle Zhu MD [address] [place] [address] [address] [facility] [place] [address] Referral ID Status Reason Start Date Expiration Date Visits Requested Visits Authorized [id number] Authorized Auto-Generat ed Referral 04/10/2024 05/10/2025 1 1 Referral ID Status Reason Start Date Expiration Date V isits Requested Visits Authorized [id number] Closed Auto-Generate d Referral 04/10/2024 05/10/2025 1 1 Specialty Diagnoses / Procedures Referred By Tyson martinez Referred To Contact [facility] Diagnoses Generalized abdominal pain Thoracic spondylosis 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 Procedures CONSULT TO PHYSICAL THERAPY PHYSICAL THERAPY EVALUATION HIGH COMPLEX 45 MINS Marsha Landa, STRINGS TEACHER.SPENT GRAIN DRYER [address] [place] [address] [facility] [place] [address] [place] [address] Referral ID Status Reason Start Date Expiration Date Visits Requested Visits Authorized [id number] Pending Review Auto-Generat ed Referral 05/14/2024 05/14/2025 1 1 Additional Source Comments INFORMATION SOURCE (unrecogn ized section and content) DATE CREATED AUTHOR 09/08/2020 [facility] DATE CREATED AUTHOR AUTHOR'S ORGANIZ ATION 10/27/2022 [facility] DATE CREATED AUTHOR AUTHOR'S ORGANIZ ATION 05/16/2024 [facility] DATE CREATED AUTHOR AUTHOR'S ORGANIZ ATION 05/17/2024 [facility] DATE CREATED AUTHOR AUTHOR'S ORGANIZ ATION 05/27/2024 [facility] DATE CREATED AUTHOR AUTHOR'S ORGANIZ ATION 06/10/2024 [facility] EPIC Source Comments (unrecognize d section and content) In the event this informatio n is protected by the Federal Confidentiality of Alcohol and Drug Abuse Patient Records regulations: The Federal rules restrict any use of the information to criminally investigate or prosecute any alcohol or drug abuse patient.[facility] the event this information is protected by the Federal Confidentiality of Alcohol and Drug Abuse Patient Records regulations: The Federal rules restrict any use of the information to criminally investigate or prosecute any alcohol or drug abuse patient.[facility] Center[facility] the event this information is protected by the Federal Confidentiality of Alcohol and Drug Abuse Patient Records regulations: The Federal rules restrict any use of the information to criminally investigate or prosecute any alcohol or drug abuse patient.[facility] the event this information is protected by the Federal Confidentiality of Alcohol and Drug Abuse Patient Records regulations: The Federal rules restrict any use of the information to criminally investigate or prosecute any alcohol or drug abuse patient.[facility] the event this information is protected by the Federal Confidentiality of Alcohol and Drug Abuse Patient Records regulations: The Federal rules restrict any use of the information to criminally investigate or prosecute any alcohol or drug abuse patient.[facility] Center[facility] the event this information is protected by the Federal Confidentiality of Alcohol and Drug Abuse Patient Records regulations: The Federal rules restrict any use of the information to criminally investigate or prosecute any alcohol or drug abuse patient.[facility] Center[facility] the event this information is protected by the Federal Confidentiality of Alcohol and Drug Abuse Patient Records regulations: The Federal rules restrict any use of the information to criminally investigate or prosecute any alcohol or drug abuse patient.[facility] Center[facility] the event this information is protected by the Federal Confidentiality of Alcohol and Drug Abuse Patient Records regulations: The Federal rules restrict any use of the information to criminally investigate or prosecute any alcohol or drug abuse patient.[facility] Reason for Visit (unrecogniz ed section and content) Reason Comments Radiology CT Specialty Diagnoses / Procedures Referred By Tyson t Referred To Contact CT IMAGING Diagnoses Abdominal pain, unspecified abdominal location Procedures CT ENTEROGRAPHY W IVCON CT ABD & PELVIS W/CONTRAST Kyle Zhu MD [address] [place] [address] Ct Imaging [place] [address] Referral ID Status Reason Start Date Expiration Date V isits Requested Visits Authorized [id number] Closed Auto-Generate d Referral 04/10/2024 05/10/2025 1 [...] Mortensen MD Primary Care Provider Active Jose Gudaalupe Costa MD Attending Provider Rajati ve Team [...] End: October 12, 2023 Genevieve Feng APRN BEHAVIORAL HEALTH TECH-C Attending Provider Act star Start: October 12, 2023 End: October 12, 2023 Team Status: Inactive Member Role Status Dates Genevieve Feng APRN BEHAVIORAL HEALTH TECH-C Primary Care Provider, Attending Provider Active Start: February 19, 2024 End: February 19, 2024 Team Status: Inactive Member Role Status Dates Genevieve Feng APRN BEHAVIORAL HEALTH TECH-C Primary Care Provider, Attending Provider Active Start: February 26, 2024 End: February 26, 2024 Team Status: Active Member Role Status Dates Genevieve Fneg APRN BEHAVIORAL HEALTH TECH-C Primary Care Provider Active Start: March 132023 Seda Douglass MD Attending Provider Active Start: March 13, 2024 Team Status: Inactive Member Role Status Dates Genevieve Feng APRN BEHAVIORAL HEALTH TECH-C Primary Care Provider, Attending Provider Active Start: March 21, 2024 End: March 21, 2024 Team Status: Active Member Role Status Dates Genevieve Feng APRN BEHAVIORAL HEALTH TECH-C Primary Care Provider Active Start: March 04, 2024 Sandeep Mcclelland DO Attending Provider Active Sta rt: March 04, 2024 Team Status: Inactive Member Role Status Dates Genevieve Feng APRN BEHAVIORAL HEALTH TECH-C Primary Care Provider, Attending Provider Active Start: April 02, 2024 End: April 02, 2024 Team Status: Inactive Member Role Status Dates Genevieve Feng APRN BEHAVIORAL HEALTH TECH-C Attending Provider Act star Start: April 02, 2024 End: April 02, 2024 Team Status: Inactive Member Role Status Dates Genevieve Feng APRN BEHAVIORAL HEALTH TECH-C Attending Provider Active Start: March End: April 02, 2024 PHYSICIAN NO FAMILY Primary Care Provider Active Start: April 02, 2024 End: April 02, 2024 Team Status: Inactive Member Role Status Dates Lady Vásquez DO Attending Provider Active St art: May 01, 2024 End: May 01, 2024 Genevieve Feng APRN BEHAVIORAL HEALTH TECH-C Primary Care Provider Active Start: April End: May 01, 2024 Team Status: Active Member Role Status Dates Genevieve Feng APRN BEHAVIORAL HEALTH TECH-C Primary Care Provider Active Start: May 02, 2024 Jose Guadalupe Costa MD Attending Provider Acti ve Start: May 02, 2024 Team Status: Inactive Member Role Status Dates Genevieve Feng APRN BEHAVIORAL HEALTH TECH-C Primary Care Provider Active Start: April End: May 02, 2024 Lady Vásquez DO Attending Provider Active St art: May 02, 2024 End: May 02, 2024 Team Status: Active Member Role Status Dates Genevieve Feng APRN BEHAVIORAL HEALTH TECH-C Primary Care Provider Active Start: April Lady Vásquez DO Attending Provider, Other Provider Active Start: May 02, 2024 Team Status: Inactive Member Role Status Dates Genevieve Feng APRN BEHAVIORAL HEALTH TECH-C Primary Care Provider Active Start: May 02, 2024 End: May 02, 2024 Jose Guadalupe Costa MD Attending Provider Acti ve Start: May 02, 2024 End: May 02, 2024 Yarn Salvager Relationship Specialty Start Date End Date Agustin Moretnsen MD [address] [place] [address] PCP - General Family Medicine 03/16/23 Yarn Salvager Relationship Specialty Start Date End Date Agustin Mortensen MD [address] [place] [address] PCP - General Family Medicine 03/16/23 Yarn Salvager Relationship Specialty Start Date End Date Agustin Mortensen MD [address] [place] [address] PCP - General Family Medicine 03/16/23 Yarn Salvager Relationship Specialty Start Date End Date Agustin Mortensen MD [address] [place] [phone] PCP - General Family Medicine 03/16/23 Blanka Aguirre DO [address] [place] [address] PCP - Medical [place] [employer] 07/10/16 07/09/99 Yarn Salvager Relationship Specialty Start Date End Date Agustin Mortensen MD [address] [facility] [place] [address] PCP - General Family Medicine 03/16/23 Blanka Aguirre DO [address] [place] [address] PCP - Medical [place] [employer] 07/10/16 07/09/99 Yarn Salvager Relationship Specialty Start Date End Date Agustin Mortensen MD [address] [facility] [place] [address] PCP - General Family Medicine 03/16/23 Blanka Aguirre DO [address] [place] [address] PCP - Medical [place] [employer] 07/10/16 07/09/99 Yarn Salvager Relationship Specialty Start Date End Date Agustin Mortensen MD [address] [facility] [place] [address] PCP - General Family Medicine 03/16/23 Blanka Aguirre DO [address] [place] [address] PCP - Medical [place] [employer] 07/10/16 07/09/99 Yarn Salvager Relationship Specialty Start Date End Date Agustin Mortensen MD [address] [facility] [place] [address] PCP - General Family Medicine 03/16/23 Blanka Aguirre, [address] [place] [address] PCP - Medical [place] [employer] 07/10/16 07/09/99 Yarn Salvager Relationship Specialty Start Date End Date Agustin Mortensen MD [address] [facility] [place] [address] PCP - General Family Medicine 03/16/23 Blanka Aguirre, [address] [place] [address] PCP - Medical [place] [employer] 07/10/16 07/09/99 Yarn Salvager Relationship Specialty Start Date End Date Agustin Mortensen MD [address] [facility] [place] [address] PCP - General Family Medicine 03/16/23 Blanka Aguirre, DO [address] [place] [address] PCP - Medical [place] [employer] 07/10/16 07/09/99 Yarn Salvager Relationship Specialty Start Date End Date Agustin Mortensen MD [address] [facility] [place] [address] PCP - General Family Medicine 03/16/23 Blanka Aguirre, [address] [place] [address] PCP - Medical [place] [employer] 07/10/16 07/09/99 Yarn Salvager Relationship Specialty Start Date End Date Agustin Mortensen MD [address] [facility] [place] [address] PCP - General Family Medicine 03/16/23 Blanka Aguirre DO [address] [place] [address] PCP - Medical [place] [employer] 07/10/16 07/09/99 Goals (unrecognized section and content) Goals may [...] BE BASED ON THE PRIMARY CLINICAL RECORDS. [facility]. provides no warranty or guarantee of the accuracy or completeness of information in this document.
[2024-06-12 12:44] LABS: Lactate Dehydrogenase 178 U/L (81-234)
[2024-06-13 04:07] LABS: AFP, Serum, Tumor Marker 3.3 ng/mL (0.0-9.2); CEA 2.1 ng/mL (0.0-4.7); Cancer Antigen (CA) 125 5.2 U/mL (0.0-38.1)
[2024-06-13 08:11] LABS: HCG Tumor Marker 7 mIU/mL (.)
== END 2024-06-12 11:32 | disposition home or self-care (01) ==
PROVIDERS: PCP Nurse Practitioner Family; Visit Provider Obstetrics & Gynecology
DX: N83.292 Other ovarian cyst, left side (principal)
CPT/HCPCS: 36415; 82105; 82378; 83615; 84702; 86304

== ENCOUNTER 2024-06-25 13:40 | Outpatient (OUT) | payer OTHER, SELFPAY ==
--- NOTE | 2024-06-25 | CONS_ITS ---
CONSULTATION DATE: 06/25/2024 TO: Dr. Obed Rosado HISTORY: Patient returns today complaining of 2-10/10 pain in her left anterior chest area and in her ribs. She reports the pain as being a ?discomfort type of pain?, increased with activities such as lifting maneuvers, pushing pulling maneuvers, as well as walking. She feels most comfortable in the semi-recumbent position. Denies any change in bowel and bladder habits or new sensorimotor changes in her upper or lower extremities. CURRENT MEDICATIONS: Include baclofen 10 mg pills, one in the morning and half in the evening. She continues to go to physical therapy, as well as perform independent physical therapy as well. EXAM: Her examination is notable for patient having no clinical radiculopathy or myelopathy involving her upper or lower extremities. She has no appreciable dysesthesia in any thoracic dermatome. She has no pain with any thoracic axial loading maneuvers. She has only mild to moderate amount of spasms, at best, in the thoracic iliocostalis muscles. IMPRESSION: Our impression is patient with pain secondary to thoracic displacement to varying degrees from T5-T10 appears to be stable. Her myofascial dysfunction and myalgia appears to be improved. RECOMMENDATIONS: At this point, I recommend no further intervention for her pain symptoms, but to continue with the independent physical therapy program and to return to our office on an as needed basis. As part of providing excellent, safe, comprehensive care, the following was completed at our patient's visit: 1. A medication reconciliation and review to ensure accurate knowledge of current/active medications, including asking our patients to inform us about any [id number] medications or herbal remedies/nutritional supplements/alternative remedies. 2. A review to specifically ensure our patients have had annual screening for: elevated body mass index (BMI, see intake chart for exact total), tobacco use, screening for depression, and screening for unhealthy alcohol use. When screening is concerning, patients are provided with education and the specific recommendation to discuss the concerning health issue and treatment options with their primary care provider. OSM[facility]
== END 2024-06-25 13:41 | disposition home or self-care (01) ==
LOC: PM 13:40
PROVIDERS: PCP Nurse Practitioner Family; Visit Provider Anesthesiology Pain Medicine
DX: M51.24 Other intervertebral disc displacement, thoracic region (principal); M79.18 Myalgia, other site
CPT/HCPCS: G0463

== ENCOUNTER 2024-08-15 13:28 | Outpatient (OUT) | payer OTHER, SELFPAY ==
--- NOTE | 2024-08-15 13:33 | ECG_ITS ---
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
--- OUTSIDE RECORDS SUMMARY | 2024-08-15 13:43 | XMS_ITS | CCD ---
Author Organization [facility] Care Team Providers Care Reverberatory Furnace Supervisor Name Role Phone DR AGUSTIN MORTENSEN Primary [...] Attending Provider Unavailable Primary Care Provider Unavailfide e NO FAMILY, PHYSICIAN Primary Care Provider Unava ilable DAGMAR Feng Primary Care Provider MD Jose Guadalupe Costa Attending Provider Unavailable Thalia DO Lady Isidro Attending Provider Agustin Mortensen MD Primary Care Provider [phone] Nidaer Kyle Referring Unavailable Nidaer Kyle Attending Unavailable MARSHA LANDA Attending Unavailable MARSHA LANDA Attending Unavailable Anthonyhner, Kyle Referring Unavailable Anthonyhner, Kyle Referring Unavailable Angelrbacher, Genevieve Primary Care Unavailable Thalia Lady L Admitting Unavailable Ly Lady L Attending Unavailable NO FAMILY, PHYSICIAN Primary Care Unavailable Angelrbacher Genevieve Admitting Unavailable Rohrbacher Genevieve Attending Unavailable Angelrbacher Genevieve Primary Care Unavailable CarolpathRafael moiseenddebbyath Admitting Unava ilable Lakshmipathy, Narendranath Attending Unava ilable ALGHOTHANI, MOHAMAD Attending Unavailable ALGHOTHANI, MOHAMAD Referring Unavailable ALGHOTHANI, MOHAMAD Attending Unavailable ALGHOTHANI, MOHAMAD Admitting Unavailable ALGHOTHANI, MOHAMAD Attending Unavailable Petznick Blanka ACKERMAN Unavailable [phone] MARTÍN TORRES Attending Unavailable BETHANY CHANG Attending Unavailable LINDA CARRILLO Referring Unavailable WENGERDSWETA Attending Unavailable LANDAMARSHA Referring Unavailable GUNDLACH, BLANKA D Attending Unavailable LANDAMARSHA Referring Unavailable TONI, LINDA Attending Unavailable TONI LINDA Referring Unavailable PETZNICKBLANKA Attending Unavailable PETZNBLANKA VANESSA Referring Unavailable LINDA CARRILLO Attending Unavailable GUNDLACH, BLANKA Tiwari Attending Unavailable GUNDLACH, BLANKA D Referring Unavailable GUNDLACH, BLANKA D Attending Unavailable GUNDLACH, BLANKA Tiwari Referring Unavailable GUNDLACH, BLANKA Tiwari Attending Unavailable GUNDLACH, BLANKA Tiwari Referring Unavailable GUNDLACH, BLANKA Tiwari Attending Unavailable GUNDLACH, BLANKA Tiwari Referring Unavailable GUNDLACH, BLANKA D Attending Unavailable GUNDLACH, BLANKA D Referring Unavailable GUNDLACH, BLANKA D Attending Unavailable GUNDLACH, BLANKA D Referring Unavailable GUNDLACH, BLANKA Tiwari Attending Unavailable GUNDLACH, BLANKA D Referring Unavailable GUNDLACH, BLANKA Tiwari Attending Unavailable GUNDLACH, BLANKA Tiwari Referring Unavailable GUNDLACH, BLANKA D Attending Unavailable GUNDLACH, BLANKA Tiwari Referring Unavailable GUNDLACH, BLANKA Tiwari Attending Unavailable GUNDLACH, BLANKA Tiwari Referring Unavailable GUNDLACH, BLANKA Tiwari Attending Unavailable GUNDLACH, BLANKA Tiwari Referring Unavailable GUNDLACH, BLANKA Tiwari Attending Unavailable GUNDLACH, BLANKA Tiwari Referring Unavailable GUNDLACH, BLANKA Tiwari Attending Unavailable GUNDLACH, BLANKA D Referring Unavailable MARTÍN TORRES Attending Unavailable GUNDLACH, BLANKA Tiwari Attending Unavailable GUNDLACH, BLANKA Tiwari Referring Unavailable GUNDLACH, BLANKA Tiwari Attending Unavailable GUNDLACH, BLANKA Tiwari Referring Unavailable GUNDLACH, BLANKA Tiwari Attending Unavailable LANDAMARSHA Referring Unavailable GUNDLACH, BLANKA Tiwari Attending Unavailable LANDAMARSHA Referring Unavailable WENGERDSWETA Attending Unavailable LANDAMARSHA Referring Unavailable Medications Current Medications Medication Drug [...] 1:00am October 12, 2023 8:30am Start: 03-07-2023 End: 03-05-2024 take 0.5 tablet by mouth three times daily baclofen 10 mg tablet [...] by mouth twice a day 10/11/2023 Active cyclobenzaprine hydrochloride 10 mg oral tablet (3 sources) Muscle Relaxant Start: 03-16-2023 End: 03-05-2024 take 1 tablet by mouth three times daily as needed for muscle spasms cyclobenzaprine (Flexeril) 10 MG tablet Indications: Strain of lumbar region, initial encounter Take 1 tablet (10 mg) by mouth 3 (three) times a day as needed for muscle spasms for up to 10 days. 30 tablet 03/16/2023 03/05/2024 Discontinued (Other) enteric contrast (will be provided with radiology [...] mg oral tablet (20 sources) Estrogen Start: 04-19-2023 End: 09-27-2024 take 1 tablet by mouth once daily estradiol (Estrace) 0.5 MG tablet Indications: Vaginal dryness Take 1 tablet (0.5 mg) by mouth Daily 90 tablet 3 09/28/2023 09/27/2024 Active estrogens, conjugated (skilled nursing) 0.625 mg/ml vaginal cream (3 sources) Estrogen Start: 04-20-2023 End: 03-05-2024 Estrogens Conjugated (Premarin) 0.625 MG/GM cream Indications: Dyspareunia in female 30 g 04/20/2023 03/05/2024 Discontinued (Other) iv contrast (will be provided with radiology [...] oral tablet (20 sources) Benzodiazepine Start: 01-30-2023 End: 03-05-2024 LORazepam (ATIVAN) 0.5 mg Take 0.5 mg by mouth. 01/30/2023 Active take 1 tablet by alexei th every six hours as needed LORazepam (Ativan) 0.5 MG tablet Take 0. 5 mg by mouth every 6 (six) hours if needed Active Comment on above: Take 0.5 mg by mouth . 24 hr metoprolol succinate 25 mg extended release oral tablet (5 sources) beta-Adrenergic Jose Start: 03-18-20 End: 05-13-20 [...] mouth. rosuvastatin calcium 20 mg oral tablet (5 sources) HMG-CoA Reductase Inhibitor Start: 03-18-20 End: [...] 05-01-2024 Fluconazole Discontinued 150 MG PO Daily 11 11April 05, 2024 12:00am May 01, 2024 9:03am [...] 2024 12:00am May 01, 2024 9:04am Problems Active Problems Problem Classification Problem Date Documented Da te Episodic/Chronic Abdominal pain (20 sources) Abdominal pain; Translations: [Unspecified abdominal pain] Onset: 4 02-26-2024 Episodic Anxiety disorders (18 sources) Anxiety; Translations: [Anxiety disorder, unspecified] Onset: 5 09-14-2023 Chronic Cardiac and circulatory congenital anomalies (12 sources) Myocardial bridge of coronary artery; 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] 03-21-2024 Chronic Cardiac dysrhythmias (20 sources) Palpitations; Translations: [Palpitations] 10-12-2023 Episodic Complications of surgical procedures or medical care (2 sources) Postsurgical menopause; 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] 05-13-2024 Chronic Conditions associated with dizziness or vertigo (18 sources) Dizziness; Translations: [Dizziness and giddiness] 02-19-2024 Episodic Esophageal disorders (2 sources) Gastroesophageal reflux disease; Translations: [Gastro-esophageal reflux disease without esophagitis] 03-22-2024 Chronic Mycoses (3 sources) Candidiasis of mouth; Translations: [Candidal stomatitis] 04-05-2024 Episodic Nonspecific chest pain (20 sources) Tight chest; Translations: [Other chest pain] Onset: 4 02-19-2024 Episodic Other connective tissue disease (3 sources) Pain in right leg; Translations: [PAIN IN RIGHT LEG] Onset: 3 Episodic Other connective tissue disease (1 source) [...] foot; Translations: [PAIN IN RIGHT ANKLE] Onset: 3 Episodic Other screening for suspected conditions (not mental disorders or infectious disease) (14 sources) Encounter for screening for lipoid disorders; Translations: [Screening for lipoid disorders] Onset: 4 10-12-2023 Episodic Ovarian cyst (20 sources) Complex ovarian cyst; Translations: [Other ovarian cyst, unspecified side] Onset: 4 07-01-2024 Episodic Residual codes; unclassified (20 sources) Patient encounter status; Translations: [Encounter for cosmetic surgery] Onset: 4 03-20-2023 Episodic Residual codes; unclassified (9 sources) [...] Spondylosis; intervertebral disc disorders; other back problems (20 sources) Thoracic spondylosis; Translations: [Spondylosis without myelopathy or radiculopathy, thoracic region] 05-14-2024 Chronic Spondylosis; intervertebral disc disorders; other back problems (20 sources) Radiculopathy, lumbar region; Translations: [Radiculopathy, thoracic region] Onset: 3 05-17-2024 Episodic Urinary tract infections (13 sources) Urinary tract infectious disease; Translations: [Urinary tract infection, site not specified] Onset: 4 04-02-2024 Episodic Past or Other Problems Problem Classification Problem Date Documented Da te Episodic/Chronic Administrative/social admission (2 sources) Follow-up status; Translations: [Person consulting for explanation of examination or test findings] 03-05-2024 Episodic Results Test Name Value Interpretation Reference Range Facility BI MAMMOGRAM SCREENING TOMOS YNTHESIS BILATERALon 08-01-2024 BI MAMMOGRAM SCREENING TOMOSYNTHESIS BILATERAL This is a summary report. The complete report is available in the patient's medical record. If you cannot access the medical record, please contact the sending organization for a detailed fax or copy. Examination: BI MAMMOGRAM SCREENING TOMOSYNTHESIS BILATERAL Clinical History: screening mammogram Technique: Screening digital mammography study of both breasts was performed with 2-D and 3-D tomosynthesis imaging. Study was compared to the prior exam dated 06/12/2023. Findings: There is no evidence of interval dominant spiculated mass, grouped microcalcifications, or skin thickening which would be suggestive of malignancy. A few benign-appearing calcifications are seen bilaterally. IMPRESSION: Impression: No specific evidence of malignancy seen in either breast. BIRADS 2 - Benign Findings DENSITY: There are scattered areas of fibroglandular density. FOLLOW-UP: Routine Screening Mammogram ELECTRONICALLY SIGNED BY: Sebastien Guajardo M.D. Normal Not Available US PELVIC COMPLETE W/ TVon 0 07-31-2024 US PELVIC COMPLETE W/ TV EXAM: Pelvic Ultrasound, Transabdominal and Transvaginal: REASON FOR EXAM: Complex ovarian cyst. COMPARISON: None. TECHNIQUE: Longitudinal and transverse grayscale, color Doppler and spectral analysis images obtained of the pelvis transabdominally and endovaginally. FINDINGS: The uterus is absent. No significant pelvic free fluid. The right ovary is not visualized. The left ovary is prominent. There is a hypoechoic 3.6 x 3.4 x 2.9 cm nodule in the left ovary with enhancement of the posterior wall, posterior acoustic enhancement. Doppler signal present. The visualized bladder shows normal shape, size and contour. Measurements: Uterus: Absent Right Ovary: N/V Left Ovary: 4.9 x 3.2 x 4.5 cm Volume: 36.8 mL IMPRESSION, Transabdominal Exam: Status post hysterectomy. IMPRESSION, Endovaginal Exam: 1. Enlarged left ovary with a minimally complex irregular ovarian cyst. Consider followup ultrasound in six weeks at a different phase of the menstrual cycle. 2. Right ovary not visualized due to bowel gas. This report is generated using voice recognition reporting ([employer]). On occasion, [employer] erroneously drops words from the report or replaces the spoken word with a similar sounding word. Please call with any questions/concerns regarding the report. Dictated and transcribed 08/01/2024/jf This report has been electronically signed and approved by the interpreting radiologist. Normal Not Available Comment on above: Order Comment: US PE LVIS-TRANSVAG IF INDICATED No LMP recorded (lmp unknown). Patient has had a hysterectomy. ALL LDHon 06-12-2024 LDH [Catalytic activity/Vol] 178 U/L 81 - 234 U/L [facility] IGP,APTIMA HPV,AGE GDLNon AGE GDLN ACOG TESTING Note . [facility] Comment on above: TESTS RESULT FLAG UN ITS REF RANGE LAB Clinician Provided Cytology Information Source.............Vagina No. of containers..01 ThinPrep Vial Age Algo ACOG Jeanna... 30-65 01 FLAG LEGEND: L-Low Normal,H-High Normal,LL-Alert Low,HH-Alert High <-Panic Low,>-Panic High,A-Abnormal,AA-Critical Abnormal Performed at: 01 =G [facility] [address] Yvette Smart MD, HPV APTIMA Negative Negative [facility] Comment on above: This nucleic acid am plification test detects fourteen high- risk HPV types (16,18,31,33,35,39,45,51,52,56,58,59,66,68) without differentiation. Performed at: =G [facility] [address], [place] [id number] Jive Developer: Yvette Smart MD, Phone: [phone] Performed at: - [facility], [place] [id number] Jive Developer: Yvette Smart MD, Phone: [phone] IGP, APTIMA HPV, RFX 16/18,45 Note . [facility] Comment on above: TESTS RESULT FLAG UN ITS REF RANGE LAB DIAGNOSIS: 02 NEGATIVE FOR INTRAEPITHELIAL LESION OR MALIGNANCY. Specimen adequacy: 02 Satisfactory for evaluation. No endocervical component is identified. Performed by: 02 Nancy Ramirez Information Technology Project Manager (ASCP) . 02 Note: Note 02 The [...] <-Panic Low,>-Panic High,A-Abnormal,AA-Critical Abnormal Performed at: [address] [place] [address] Yvette Smart MD, [facility]24 [facility] Office Visit ([facility]) SOCORRO GALLAGHER ([id number]) 1970 F Date Time Provider Department 05/14/24 3:30 PM MARSHA LANDA [facility] During your visit today, we recorded the following information about you: Weight 64 kg Marsha Landa APRN.SEAM RUBBING MACHINE OPERATOR 05/14/2024 4:32 PM Signed Spine Care Path [...] been under the care of her painter barrel with MRI thoracic spine imaging completed in regards to thoracic radiculopathy. She states that she is also been seen by GI and underwent endoscopy where she was advised that she has GERD. Patient's Jose A is present with patient consent. States has seen GI and PM : states that she was diagnosed with GERD. 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 Nonsmoker Pain localized to area below [...] Physical Therapy: None Treating Physicians: Genevieve Feng SEAM RUBBING MACHINE OPERATOR - PCP Dr Melgar - Plastic Surgery [...] file. ALLERGIES (more content not included)... [facility] SOCORRO GALLAGHER ([id number]) 1970 F Date Time Provider Department 05/13/24 MARSHA LANDA [facility] During your visit today, we recorded the following information about you: Genevieve Barbosa 05/13/2024 12:08 PM Signed Socorro is calling Marsha Landa APRN.SEAM RUBBING MACHINE OPERATOR today to ask if you can see her MRI results from [facility], which are for tomorrow's appointment. They told her they were sent to the Imaging Library, but when she tries to call she just gets disconnected. Please advise. Patient has been identified by name and birthdate. Duration of symptoms: N/A Person calling: self Call patient at: at home [phone] (home) [phone] (cell) Was an appointment scheduled: No Closing statement: Results or non-symptom based questions: Thank you for calling [facility], your call will be returned within the next business day. Genevieve Castañeda Pss Dana Lozano, RN 05/13/2024 12:31 PM Signed Neuro SPINE CARE COORDINATION QUICK NOTE Spoke with patient and advised her that we don't have any Thoracic MRI images or report yet and to get a CD from [facility] to bring to the appointment with Marsha tomorrow. She verbalized understanding. I also sent an email to the [facility] to see if they have anything pending [...] Fully Assessed Reason for Visit: Patient Question [3417] Prescriptions as of 05/13/2024 - aspirin, enteric [...] Status:Closed by DANA LOZANO on 05/13/24 Normal [facility] Pathology Request for Lab Co rpon 05-02-2024 Pathology Request for Lab Moy Normal [facility] Comment on above: Order Comment: PATHO LOGY GI SPECIMEN Result Comment: See report. Scanned copy available in EMR. PERFORMED BY: [address] [place] [address] PATHOLOGIST EVENING SITTER ANUSHA ROMO M.D. Performed By: #### P ATH TO [facility] #### [address] [place] [address] [facility] XR pre/post mri xrayon 05-02 XR pre/post mri xray [facility] [place] [address] [place] [id number] MRI Report Signed Patient: Yuri Gallagher MR#: [id number] : 1970 Acct:[id number] Age/Sex: 53 / F ADM Date: 05/02/24 [facility]: Type: REG CLI Attending Dr: Jose Guadalupe Costa MD Copies to: Jose Guadalupe Costa Ordering Provider: Jose Guadalupe Costa Date of Service: 05/02/24 MR/MR thoracic spine wo con: THORACIC NEURITIS ([id number]) XR/XR pre/post mri xray: THORACIC NEURITIS MR [...] Austin Marsh M.D.05/02/2024 12:53 PM Dictation Location: [place] [address] Transcribed By: [facility] 05/02/24 1253 Dictated By: Austin Marsh II, MD 05/02/24 1241 Signed By: 05/02/24 1253 Normal [facility] CT ENTEROGRAPHY W IVCONon CT ENTEROGRAPHY W IVCON * * *Final Repor t* * * DATE OF EXAM: Apr 25 2024 2:22PM [facility] 0545 - CT ENTEROGRAPHY W IVCON [...] unilocular left adnexal cyst, stable since 03/23/2023. Construction Consultant: [facility] Transcribe Date/Time: Apr 25 2024 2:55P Dictated by : ODALIS GALAVIZ MD This examination was interpreted and the report reviewed and electronically signed by: ODALIS GALAVIZ MD on Apr 25 2024 3:13PM EST [id number] Normal [facility] CT Small bowel W contrast PO and W contrast Lata 04-25-2024 IMPRESSION: No active small bowel inflammation or acute process in the abdomen/pelvis. 3.6 cm unilocular left adnexal cyst, stable since 03/23/2023. Construction Consultant: [facility] Transcribe Date/Time: Apr 25 2024 2:55P Dictated by : ODALIS GALAVIZ MD This examination was interpreted and the report reviewed and electronically signed by: ODALIS GALAVIZ MD on Apr 25 2024 3:13PM [facility] DIVISION OF RADIOLOGY * * *Final Report* * * DATE OF EXAM: Apr 25 2024 2:22PM [facility] 0545 - CT ENTEROGRAPHY W IVCON [...] Lung Bases: Unremarkable. DIVISION OF RADIOLOGY Provider, [facility] - 04/25/2024 * * *Final Report* * * DATE OF EXAM: Apr 25 2024 2:22PM [facility] 0545 - CT ENTEROGRAPHY W IVCON [...] unilocular left adnexal cyst, stable since 03/23/2023. Construction Consultant: [facility] Transcribe Date/Time: Apr 25 2024 2:55P Dictated by : ODALIS GALAVIZ MD This examination was interpreted and the report reviewed and electronically signed by: DOALIS GALAVIZ MD on Apr 25 2024 3:13PM EST [facility] Radiology Study observation (narrative) [facility] CT Small bowel W contrast PO and W contrast IVOrdered By: [facility] Provider on 04-25-2024 [facility] 25(OH)D3 SerPl-mCncon 2023 25-hydroxyvitamin D3 [Mass/Vol] 39.3 ng/mL Normal 31.0-80.0 [facility] Comment on above: Order Comment: Speci men Type: BLOOD SPECIMEN Ordering Facility: [facility] Address: [address] [place] [address] Result Comment: Clas sification of 25 [place] Vitamin D status: Deficiency/Insufficiency: < or = 30 ng/ml. Sufficiency/Optimal Levels: 31-80 ng/mL Toxicity: > 100 ng/mL. Test performed by chemiluminescent immunoassay. Performed By: #### 1 989-3 #### [facility] CLIA [id number] [address] [place], [place] [address] [address] [place] CBC panel Auto (Bld)on 04-10 Erythrocyte distribution width (RBC) [Ratio] 12.4 % 11.5 - 15.0 % [facility] Hematocrit (Bld) [Volume fraction] 37.7 % 36.0 - 46.0 % [facility] Hemoglobin (Bld) [Mass/Vol] 12.5 g/dL 11.5 - 15.5 g/dL [facility] Interpretation and review of laboratory results Normal [facility] MCH (RBC) [Entitic mass] 30.8 pg 26. 0 - 34.0 pg [facility] MCHC (RBC) [Mass/Vol] 33.2 g/dL 30.5 - 36.0 g/dL [facility] MCV (RBC) [Entitic vol] 92.9 fL 80.0 - 100.0 fL [facility] Nucleated RBC (Bld) [#/Vol] NINF [facility] Platelet mean volume (Bld) [Entitic vol] 10.6 fL 9.0 - 12.7 fL [facility] Platelets (Bld) [#/Vol] 274 10*3/uL [facility] RBC (Bld) [#/Vol] 4.06 10*6/uL 3.90 - 5.2 0 m/uL [facility] WBC (Bld) [#/Vol] 5.79 10*3/uL [facility] Erythrocyte distribution width (RBC) [Ratio] 12.4 % Normal 11.5-15.0 [facility] Comment on above: Order Comment: Speci men Type: BLOOD SPECIMENOrdering Facility: [facility] Address: [address] [place] [address] Performed By: #### 5 8410-2 ####[facility] [id number] [place] [address] [place] Hematocrit (Bld) [Volume fraction] 37.7 % Normal 36.0-46.0 [facility] Comment on above: Order Comment: Speci men Type: BLOOD SPECIMENOrdering Facility: [facility] Address: [address] [place] [address] Performed By: #### 5 8410-2 ####[facility] [id number] [place] [id number] [place] Hemoglobin (Bld) [Mass/Vol] 12.5 g/dL Normal 11.5-15.5 [facility] Comment on above: Order Comment: Speci men Type: BLOOD SPECIMENOrdering Facility: [facility] Address: [address] [place] [address] Performed By: #### 5 8410-2 ####[facility] [id number] [place] [address] [place] MCH (RBC) [Entitic mass] 30.8 pg Normal 26.0-34.0 [facility] Comment on above: Order Comment: Speci men Type: BLOOD SPECIMENOrdering Facility: [facility] Address: [address] [place] [address] Performed By: #### 5 8410-2 ####[facility] [id number] [place] [address] [place] MCHC (RBC) [Mass/Vol] 33.2 g/dL Normal 30.5-36.0 [facility] Comment on above: Order Comment: Speci men Type: BLOOD SPECIMENOrdering Facility: [facility] Address: [address] [place] [address] Performed By: #### 5 8410-2 ####[facility] [id number] [place] [address] [place] MCV (RBC) [Entitic vol] 92.9 fL Normal 80.0-100.0 [facility] Comment on above: Order Comment: Speci men Type: BLOOD SPECIMENOrdering Facility: [facility] Address: [address] [place] [address] Performed By: #### 5 8410-2 ####[facility] [id number] [place] [address] [place] Nucleated RBC (Bld) [#/Vol] 10*3/uL Normal <0.01 [facility] Comment on above: Order Comment: Speci men Type: BLOOD SPECIMENOrdering Facility: [facility] Address: [address] [place] [address] Performed By: #### 5 8410-2 ####[facility] [id number] [place] [address] [place] Platelet mean volume (Bld) [Entitic vol] 10.6 fL Normal 9.0-12.7 [facility] Comment on above: Order Comment: Speci men Type: BLOOD SPECIMENOrdering Facility: [facility] Address: [address] [place] [address] Performed By: #### 5 8410-2 ####[facility] [id number] [place] [address] [place] Platelets (Bld) [#/Vol] 274 10*3/uL Normal 150-400 [facility] Comment on above: Order Comment: Speci men Type: BLOOD SPECIMENOrdering Facility: [facility] Address: [address] [place] [address] Performed By: #### 5 8410-2 ####[facility] [id number] [place] [address] [place] RBC (Bld) [#/Vol] 4.06 10*6/uL Normal 3.90-5.20 [facility] Comment on above: Order Comment: Speci men Type: BLOOD SPECIMENOrdering Facility: [facility] Address: [address] [place] [address] Performed By: #### 5 8410-2 ####[facility] [id number] [place] [address] [place] WBC (Bld) [#/Vol] 5.79 10*3/uL Normal 3.70-11.00 [facility] Comment on above: Order Comment: Speci men Type: BLOOD SPECIMENOrdering Facility: [facility] Address: [address] [place] [address] Performed By: #### 5 8410-2 ####[facility] [id number] [place] [address] [place] CRP SerPl-mCncon 04-10-2024 CRP [Mass/Vol] mg/L Normal <0.9 [facility] Comment on above: Order Comment: Speci men Type: BLOOD SPECIMENOrdering Facility: [facility] Address: [address] [id number] Performed By: #### 2 4323-02, 1987-11 ####[facility] LABCLIA [id number] [address] [address] [place] Comprehensive metabolic 2000 panelon 04-10-2024 Albumin [Mass/Vol] 4.5 g/dL Normal 3.9-4.9 [facility] Comment on above: Order Comment: Speci men Type: BLOOD SPECIMENOrdering Facility: [facility] Address: [address] [place], [place] [address] Performed By: #### 2 4323-02, 1987-11 ####[facility] LABCLIA [id number] [address] [place] [id number] [place] ALP [Catalytic activity/Vol] 80 U/L Normal 34-123 [facility] Comment on above: Order Comment: Speci men Type: BLOOD SPECIMENOrdering Facility: [facility] Address: [address] [place], [place] [address] Performed By: #### 2 4323-02, 1987-11 ####[facility] LABCLIA [id number] [place] [address] [place] ALT [Catalytic activity/Vol] 14 U/L Normal 7-38 [facility] Comment on above: Order Comment: Speci men Type: BLOOD SPECIMENOrdering Facility: [facility] Address: [address] [place], [place] [address] Performed By: #### 2 4323-02, 1987-11 ####[facility] LABCLIA [id number] [address] [id number] [place] Anion gap [Moles/Vol] 12 mmol/L Normal 8-15 [facility] Comment on above: Order Comment: Speci men Type: BLOOD SPECIMENOrdering Facility: [facility] Address: [address] [place], [place] [address] Performed By: #### 2 4323-02, 1987-11 ####[facility] LABCLIA [id number] [address] [address] [place] AST [Catalytic activity/Vol] 26 U/L Normal 13-35 [facility] Comment on above: Order Comment: Speci men Type: BLOOD SPECIMENOrdering Facility: [facility] Address: [address] [place], [place] [address] Performed By: #### 2 4323-02, 1987-11 ####[facility] LABCLIA [id number] [address] [address] [place] Bilirubin [Mass/Vol] 0.2 mg/dL Normal 0.2-1.3 [facility] Comment on above: Order Comment: Speci men Type: BLOOD SPECIMENOrdering Facility: [facility] Address: [address] [place] [address] Performed By: #### 2 4323-02, 1987-11 ####[facility] LABCLIA [id number] [place] [id number] [place] Calcium [Mass/Vol] 9.6 mg/dL Normal 8.5-10.2 [facility] Comment on above: Order Comment: Speci men Type: BLOOD SPECIMENOrdering Facility: [facility] Address: [address] [place], [place] [address] Performed By: #### 2 4323-02, 1987-11 ####[facility] LABCLIA [id number] [place] [id number] [place] Chloride [Moles/Vol] 102 mmol/L Normal 98-107 [facility] Comment on above: Order Comment: Speci men Type: BLOOD SPECIMENOrdering Facility: [facility] Address: [address] [place], [place] [address] Performed By: #### 2 4323-02, 1987-11 ####[facility] LABCLIA [id number] [address] [address] [place] CO2 [Moles/Vol] 24 mmol/L Normal 22-30 [facility] Comment on above: Order Comment: Speci men Type: BLOOD SPECIMENOrdering Facility: [facility] Address: [address] [id number] Performed By: #### 2 43209-14, 1987-11 ####[facility] LABCLIA [id number] [address] [address] [place] Creatinine [Mass/Vol] 0.78 mg/dL Normal 0.58-0.96 [facility] Comment on above: Order Comment: Speci men Type: BLOOD SPECIMENOrdering Facility: [facility] Address: [address] [place] [address] Performed By: #### 2 43209-14, 1987-11 ####[facility] LABCLIA [id number] [place] [address] [place] Creatinine and Glomerular filtration rate.predicted panel (S/P/Bld) 91 mL/min/1.73m??? Normal >=60 [facility] Comment on above: Order Comment: Speci men Type: BLOOD SPECIMENOrdering Facility: [facility] Address: [address] [place] [address] Result Comment: Emelyn mated Glomerular Filtration Rate [...] GFR. Performed By: #### 2 43238, 1987-11 ####[facility] LABCLIA [id number] [address] [address] [place] Glucose [Mass/Vol] 94 mg/dL Normal 74-99 [facility] Comment on above: Order Comment: Speci men Type: BLOOD SPECIMENOrdering Facility: [facility] Address: [address], [place] [address] Result Comment: The [place] Diabetes Association (ADA) provides guidance for cutoff [...] Standards of Medical Care in Diabetes 2016, [place] [employer] Association. Diabetes Care. 2016.39(Suppl 1). Performed By: #### 2 43209-14, 1987-11 ####[facility] LABCLIA [id number] [place] [address] [place] Potassium [Moles/Vol] 4.5 mmol/L Normal 3.7-5.1 [facility] Comment on above: Order Comment: Speci men Type: BLOOD SPECIMENOrdering Facility: [facility] Address: [address] [id number] Performed By: #### 2 4323-02, 1987-11 ####[facility] LABIA [id number] [address] [id number] [place] Protein [Mass/Vol] 7.7 g/dL Normal 6.3-8.0 [facility] Comment on above: Order Comment: Speci men Type: BLOOD SPECIMENOrdering Facility: [facility] Address: [address] [place] [address] Performed By: #### 2 4323-02, 1987-11 ####[facility] LABIA [id number] [address] [address] [place] Sodium [Moles/Vol] 138 mmol/L Normal 136-144 [facility] Comment on above: Order Comment: Speci men Type: BLOOD SPECIMENOrdering Facility: [facility] Address: [address] [place] [address] Performed By: #### 2 4323-8, 1987-11 ####[facility] LABCLIA [id number] [address] [address] [place] Urea nitrogen [Mass/Vol] 11 mg/dL Normal 7-21 [facility] Comment on above: Order Comment: Speci men Type: BLOOD SPECIMENOrdering Facility: [facility] Address: [address] [place] [address] Performed By: #### 2 4323-8, 1987-11 ####[facility] LABCLIA [id number] [address] [address] [place] Office Visiton 04-08-2024 Follow-up visit [id number] Yuri Gallagher 1970 F Date Provider Department Center 04/08/2024 [facility] CARD [facility] Family History Problem Relation Age of Onset No Known Problems Mother Heart attack Father Coronary artery disease Father's Brother Stroke Paternal Grandfather Family Status - Relation Status Age at Mother Father Father's Brother Paternal Grandfather Level of Service:65161 [place] OFFICE/OUTPATIENT ESTABLISHED LOW MDM 20 MIN Normal [facility] CT ABDOMEN PELVIS WO IV CONT [facility] 04-02-2024 CT ABDOMEN PELVIS WO IV [...] - challengeon 04-02-2024 Bilirubin Ql (U) Negative [facility] Glucose (U) [Mass/Vol] Negative [facility] Ketones Ql (U) Negative [facility] pH (U) 9.0 [pH] [facility] Specific gravity (U) [Rel density] 1.005 [facility] Urobilinogen (U) [Mass/Vol] 0.2 mg/dL [facility] Laboratory - Microbiology an d Antimicrobial susceptibilityOrdered By: Genevieve Feng on 04-02-2024 Bacteria identified Cx Nom (U) Escherichia coli Abnormal [facility] - Specimen inform ationon 04-02-2024 Appearance (U) Clear [facility] Color (U) Clear [facility] - Urinalysison Leukocyte esterase Test strip Ql (U) 1+ [facility] Nitrite Ql (U) Negative [facility] Protein Ql (U) Negative [facility] No Panel Informationon 04-02 Urine Occult Blood 3+ [facility] Urine Cultureon 04-02-2024 Bacteria identified Cx Nom (U) ORGANISM: Escherichia coli (O:ESCCOL) [place]sco Count >100,000 Aerobic LEXIS Charge (NMIC56) ----- [...] RESISTANT TO ALL B-LACTAM DRUGS. PERFORMED BY: [place] [address] PATHOLOGIST EVENING SITTER ANUSHA ROMO M.D. Normal [facility] Comment on above: Performed By: #### C UU #### [address]on 03-18-2024 Attestation signed by Seda Loza MD at [...] wishes to proceed. Amairani Tinoco MD PGY-4 brace maker [facility] NURSNOTEkeo 03-18-2024 BERNARDINO RN educated pt on d/c instructions. RN encouraged pt to voice any questions or concerns. Pt verbalizes no questions or concerns at this time. Pt was wheeled off of unit with all of belongings. Normal [facility] Basophils Auto (Bld) [#/Vol] on 03-13-2024 Basophils (Bld) [#/Vol] 0.0 10 3/uL 0.0-0.1 [facility] Basophils/100 WBC Auto (Bld) on 03-13-2024 Basophils/100 WBC (Bld) 0.6 % 0.2-2.0 F [facility] Eosinophils/100 WBC Auto (Bl d)on 03-13-2024 Eosinophils/100 WBC (Bld) 2.4 % 0.9-7.0 [facility] Erythrocyte distribution wid th Auto (RBC) [Ratio]on 03-13-2024 Erythrocyte distribution width (RBC) [Ratio] 12.0 % 11.0-15.0 [facility] Estimated glomerular filtrat ion rate (GFR) non- Americanon 03-13-2024 GFR/1.73 sq M.predicted among non-blacks MDRD (S/P/Bld) [Vol rate/Area] mL/min/{1.73_m2} >=60 [facility] Hematocrit Auto (Bld) [Volum e fraction]on 03-13-2024 Hematocrit (Bld) [Volume fraction] 36.7 % 36.0-48.0 [facility] Hemoglobin [Mass/volume] in Bloodon 03-13-2024 Hemoglobin (Bld) [Mass/Vol] 12.3 g/dL 12.0-16.0 [facility] Laboratory - Chemistry and C hemistry - challengeon 03-13-2024 Calcium [Mass/Vol] 8.8 mg/dL 8.5-10.1 [facility] Chloride [Moles/Vol] 99 mmol/L 98-107 [facility] CO2 [Moles/Vol] 32.4 mmol/L High 21.0-32.0 [facility] Creatinine [Mass/Vol] 0.66 mg/dL 0.55-1.02 [facility] GFR/1.73 sq M.predicted MDRD (S/P/Bld) [Vol rate/Area] mL/min/{1.73_m2} >=60 [facility] Glucose [Mass/Vol] 97 mg/dL 74-106 [facility] Potassium [Moles/Vol] 4.3 mmol/L 3.5-5.1 [facility] Sodium [Moles/Vol] 136 mmol/L 136-145 [facility] Urea nitrogen [Mass/Vol] 17.0 mg/dL 7.0-18.0 [facility] Urea nitrogen/Creatinine [Mass ratio] 25.8 mg/mg [facility] Laboratory - Hematology and Cell countson 03-13-2024 Immature granulocytes/100 WBC (Bld) 0.0 % 0.0-0.5 [facility] Leukocytes [#/volume] correc alejandra for nucleated erythrocytes in Blood by Automated counon 03-13-2024 WBC corrected for nucl RBC Auto (Bld) [#/Vol] 6.3 10 3/uL 4.0-11.0 [facility] Lymphocytes Auto (Bld) [#/Vo l]on 03-13-2024 Lymphocytes (Bld) [#/Vol] 1.7 10 3/uL 1.2-3.8 [facility] Lymphocytes/100 WBC Auto (Bl d)on 03-13-2024 Lymphocytes/100 WBC (Bld) 27.0 % 20.5-60.0 [facility] MCH Auto (RBC) [Entitic mass ]on 03-13-2024 MCH (RBC) [Entitic mass] 31.1 pg 26.7-34.0 [facility] MCHC Auto (RBC) [Mass/Vol]on 03-13-2024 MCHC (RBC) [Mass/Vol] 33.5 g/dL 29.9-35.2 [facility] MCV Auto (RBC) [Entitic vol] on 03-13-2024 MCV (RBC) [Entitic vol] 92.7 fL 81.0-99.0 [facility] Monocytes Auto (Bld) [#/Vol] on 03-13-2024 Monocytes (Bld) [#/Vol] 0.5 10 3/uL 0.3-0.8 [facility] Monocytes/100 WBC Auto (Bld) on 03-13-2024 Monocytes/100 WBC (Bld) 7.7 % 1.7-12.0 F [facility] Neutrophils Auto (Bld) [#/Vo l]on 03-13-2024 Neutrophils (Bld) [#/Vol] 3.9 10 3/uL 1.4-6.5 [facility] Neutrophils/100 WBC Auto (Bl d)on 03-13-2024 Neutrophils/100 WBC (Bld) 62.3 % 43.0-75.0 [facility] No Panel Informationon 03-13 Eosinophils # (Auto) 0.2 10 3/uL 0.0-0.7 [facility] Immature Granulocyte # (Auto) 0.00 10 3/uL 0.00-0.03 [facility] Platelet mean volume Auto (B ld) [Entitic vol]on 03-13-2024 Platelet mean volume (Bld) [Entitic vol] 9.7 fL 9.5-13.5 [facility] Platelets Auto (Bld) [#/Vol] on 03-13-2024 Platelets (Bld) [#/Vol] 246 10 3/uL 150-450 [facility] RBC Auto (Bld) [#/Vol]on RBC (Bld) [#/Vol] 3.96 10 6/uL Low 4.20-5.40 [facility] Serum or plasma anion gap de terminationon 03-13-2024 Anion gap [Moles/Vol] 8.9 mmol/L [facility] DEXA BONE DENSITYon 03-12-20 24 DEXA BONE DENSITY FINDINGS: Dual Femur bone density obtained with a SHADOW whole body system: Region BMD Young-Adult Age-Matched [...] AP Spine bone density obtained with a SHADOW whole body system: Region BMD Young-Adult Age-Matched [...] Not Available Office Visiton 03-04-2024 Follow-up visit [id number] Yuri Gallagher 1970 Date Provider Department [place] 03/04/2024 SEDA HOLM Family History Problem Relation Age of Onset No Known Problems Mother Heart attack Father Coronary artery disease Father's Brother Stroke Paternal Grandfather Family Status - Relation Status Age at Mother Father Father's Brother Paternal Grandfather Level of Service:69077 [place] OFFICE/OUTPATIENT NEW MODERATE MDM 45 MINUTES Normal [facility] Orders Onlyon 03-04-2024 Orders Only [id number] Yuri Gallagher 1970 Date Provider Department [place] 03/04/2024 TANISHA ANDINO Family History Problem Relation Age of Onset No Known Problems Mother Heart attack Father Coronary artery disease Father's Brother Stroke Paternal Grandfather Family Status - Relation Status Age at Mother Father Father's Brother Paternal Grandfather Normal [facility] CNOVon 06-21-2023 CNOV Office Visit ([facility]) SOCORRO GALLAGHER ([id number]) 1970 F Date Time Provider Department 06/21/23 8:00 AM MARSHA LANDA [facility] During your visit today, we recorded the following information about you: Weight Height 64 kg 1.6 m Marsha Landa APRN.[facility] 06/21/2023 9:30 AM Signed Spine Care [...] under the care of pain management in [facility] where she recently underwent a right gluteal nerve block without improvement in symptoms. She states that at postinjection follow-up she was offered a piriformis injection but is reluctant to proceed. She reports that she recently had an EMG completed. EMG results were not available at time of today's appointment. 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 Nonsmoker Pain localized to right buttocks [...] prednisone Physical Therapy: Spring 2022 attended at [facility] , she states sessions were not [...] Denies christina (more content not included)... Normal [facility] RAD - Ultrasound Reporton RAD - Ultrasound Report [id number] #1.00CD:127 [facility] Coding Summary.on 07-31-2020 Coding Summary. CODING DATE: 07/31/2020 FINAL [facility] STATUS: Home (Routine DC) PAYOR: [facility] [employer] [facility] DESCRIPTION 5373 Level 3 Urology and [...] So Valle Date Saved: 07/31/2020 12:41 pm [facility] Consent for Procedure/Surger yon 07-30-2020 Consent for Procedure/Surgery [id number] 7#1.00CD:127 [facility] Consent for Treatmenton 07-11 Consent for Treatment [id number] #1.00CD:127 [facility] Discharge Instructionson Discharge Instructions [id number] 8#1.00CD:127 Normal [facility] History and Physicalon 07-30 History and Physical [id number]#1.00CD:127 Normal [facility] IntraOperative Documentson 0 07-30-2020 IntraOperative Documents [id number] 9#1.00CD:127 [facility] Main OR Intraoperative Recor don 07-30-2020 Main OR Intraoperative Record IntraOp Document Type FTURO Summary Primary Physician: Facundo Fam Jr., MD Finalized Date/Time: 07/30/20 13:50:41 Pt. Name: ELLIOTTYURI/Sex: 1970 Female Med Rec #: [id number] Physician: Facundo Fam Jr., MD Financial #: [id number] Pt. Type: O Room/Bed: / Admit/Disch: 07/30/20 13:06:47 - Institution: Case Times FTURO Entry 1 Patient Times In Room 07/30/20 13:40:00 Out Room 07/30/20 13:51:00 Procedure Times Start 07/30/20 13:46:00 Stop 07/30/20 13:47:00 Anesthesia Times Last Modified By: LYNSEY Macias RN, Lou Ann 07/30/20 13:50:14 Case Attendance FTURO Entry 1 Entry 2 Entry 3 Case Attendee Sarwat Yadav MD, Facundo Macias RN, Diana MENON CST, Gwen E Role Performed Surgeon - Primary Outsole Skiver - Primary Scrub - Primary Time In 07/30/20 13:40:00 07/30/20 13:40:00 07/30/20 13:40:00 Time Out 07/30/20 13:51:00 07/30/20 13:51:00 07/30/20 13:51:00 Procedure CYSTOSCOPY LOCAL WITH CYSTOSCOPY LOCAL WITH CYSTOSCOPY LOCAL WITH URETHRAL DILATION(.) URETHRAL DILATION(.) URETHRAL DILATION(.) Comments Last Modified By: LUKE Macias RNORDiana RN, CNOR, Lou Ann Blank RN, Diana MENON 07/30/20 13:50:29 07/30/20 13:50:29 [...] Felix, Verified (If Participants LYNSEY Macias RN, Diana Applicable) Hamida Avilez CST, Gwen E [...] Macias RN, Lou Ann 07/30/20 13:50 Normal [facility] Main OR Preoperative Recordo n 07-30-2020 Main OR Preoperative Record Holding Area Document Type FTURO Summary Primary Physician: Facundo Fam Jr., MD Finalized Date/Time: 07/30/20 13:41:28 Pt. Name: YURI GALLAGHER Isidro Mireles/Sex: 1970 Female Med Rec #: [id number] Physician: Facundo Fam Jr., MD Financial #: [id number] Pt. Type: O Room/Bed: / Admit/Disch: 07/30/20 [...] Macias RN, Lou Ann 07/30/20 13:41 Normal [facility] Operative Reporton Operative Report Patient: YURI GALLAGHER [...] with antibiotic coverage, Follow up arranged. Normal [facility] Comment on above: Result Comment: Elec tronically [...] have a fever over 100 degrees Normal [facility] Ambulatory Clinical Summaryo n 07-21-2020 Ambulatory Clinical Summary {[id number]}CD:[id number] Normal [facility] Ambulatory Clinical Summary {[id number]}CD:[id number] Normal [facility] Patient Educationon 07-21-19 21 Patient Education Urinary [...] Document Reviewed: 08/03/2012 ExitCare? Patient Information ?2013 [employer]. [facility] Urology Office/Clinic Noteon 07-21-2020 Urology [...] Will order Local anesthesia. ABX sent to [facility] in [place]. Ordered: Urology Procedure Order US Renal 2. [...] day(s), # 2 tab(s), Refills(s) 0, Pharmacy: [facility]/pharmacy #[id number], 162, cm, 07/21/20 13:48:00 EST, Height/Length Dosing, 68.5, kg, 07/21/20 13:48:00 EST, Weight Dosing Urnls Dip Stick Auto w/o Microscopy POC [id number] I have reviewed the previous health record information and history for this pt. from Dr. Fam. Follow-up With When Contact Information Facundo Fam Jr., MD [address] [place] [address] [place] [address]- Additional Instructions: Patient Education Urinary [...] Protein Urine Dipstick: Negative (07/21/20 13:39:00) Specific [place] Urine Dipstick: 1.020 (07/21/20 13:39:00) Urine Appearance [...] she is been treated with Bactrim DS. [facility] Comment on above: Result Comment: Elec tronically Signed By: Sarwat Yadav MD, Facundo Felix\.br\Date and Time Signed: 07/21/20 14:42 EST\.br\Electronically Co-Signed By: Lety Marino MA\.br\Date and Time Co-Signed: 07/21/20 14:31 EST Vital Signs Date Time Vital Sign Value Performing Clinician Facility 07-31-2024 13:42-0500 Body mass index (BMI) [Ratio] 26.36 kg/m2 Martín Brian DO Work Phone: [facility] 07-31-2024 13:42-0500 Body weight 67.5 kg Martín Brian DO Work Phone: [facility] 07-31-2024 13:42-0500 Diastolic blood pressure 76 mm[Hg] Martín Brian DO Work Phone: [facility] 07-31-2024 13:42-0500 Systolic blood pressure 112 mm[Hg] Martín Brian DO Work Phone: [facility] 07-01-2024 08:36-0500 Body mass index (BMI) [Ratio] 25.76 kg/m2 Matrín Brian DO Work Phone: [facility] 07-01-2024 08:36-0500 Body weight 65.95 kg Martín Brina DO Work Phone: [facility] 07-01-2024 08:36-0500 Diastolic blood pressure 70 mm[Hg] Martín Brian DO Work Phone: [facility] 07-01-2024 08:36-0500 Systolic blood pressure 120 mm[Hg] Martín Brian DO Work Phone: [facility] 05-14-2024 15:18-0500 Body mass index (BMI) [Ratio] 24.99 kg/m2 Marsha Landa [employer]DRINIER WIRE WEAVER.SEAM RUBBING MACHINE OPERATOR Work Phone: [facility] 05-14-2024 15:18-0500 Body weight 64 kg Marsha Landa [employer]DRIN[employer] W[employer] WEAVER.SEAM RUBBING MACHINE OPERATOR Work Phone: [facility] 05-02-2024 11:30-0400 Diastolic blood pressure 80 mm[Hg] PHYSICIAN NO [facility] 05-02-2024 11:30-0400 Heart rate 68 /min PHYSICIAN NO [facility] 05-02-2024 11:30-0400 Respiratory rate 16 /min PHYSICIAN NO [facility] 05-02-2024 11:30-0400 SaO2% (BldA) [Mass fraction] 97 % PHYSICIAN NO [facility] 05-02-2024 11:30-0400 Systolic blood pressure 117 mm[Hg] PHYSICIAN NO [facility] 05-02-2024 10:25-0400 Body height 160.[address] [facility] 05-02-2024 10:25-0400 Body temperature 97.1 [degF] PHYSICIAN NO [facility] 05-02-2024 10:25-0400 Body weight 61.[address] [facility] 05-01-2024 08:59-0400 Body height 160.[address] [facility] 05-01-2024 08:59-0400 Body mass index (BMI) [Ratio] 23.9 kg/m2 PHYSICIAN NO [facility] 05-01-2024 08:59-0400 Body weight 61.[address] [facility] 04-10-2024 13:24-0400 Body height 160 cm Kyle Zhu MD Work Phone: [facility] 04-10-2024 13:24-0400 Body mass index (BMI) [Ratio] 23.74 kg/m2 Kyle Zhu MD Work Phone: [facility] 04-10-2024 13:24-0400 Body temperature 98.2 [degF] Kyle Zhu MD Work Phone: [facility] 04-10-2024 13:24-0400 Body weight 60.78 kg Kyle Zhu MD Work Phone: [facility] 04-10-2024 13:24-0400 Diastolic blood pressure 80 mm[Hg] Kyle Zhu MD Work Phone: [facility] 04-10-2024 13:24-0400 Heart rate 77 /min Kyle Zhu MD Work Phone: [facility] 04-10-2024 13:24-0400 SaO2% (BldA) [Mass fraction] 97 % Kyle Zhu MD Work Phone: [facility] 04-10-2024 13:24-0400 Systolic blood pressure 120 mm[Hg] Kyle Zhu MD Work Phone: [facility] 04-02-2024 10:11-0400 Body height 160.02 cm DAGMAR Feng Work Phone: [facility] 04-02-2024 09:07-0400 Body height 160.02 cm [facility] 04-02-2024 09:07-0400 Body mass index (BMI) [Ratio] 25 kg/m2 [facility] 04-02-2024 09:07-0400 Body temperature 97.4 [degF] [facility] 04-02-2024 09:07-0400 Body weight 64.01 kg [facility] 04-02-2024 09:07-0400 Diastolic blood pressure 80 mm[Hg] [facility] 04-02-2024 09:07-0400 Systolic blood pressure 124 mm[Hg] [facility] 03-22-2024 09:49-0400 Body height 160 cm Blanka Pethazel ACKERMAN Work Phone: [facility] 03-22-2024 09:49-0400 Body mass index (BMI) [Ratio] 25.01 kg/m2 Blanka Aguirre DO Work Phone: [facility] 03-22-2024 09:49-0400 Body temperature 97.5 [degF] Blanka Pethazel DO Work Phone: [facility] 03-22-2024 09:49-0400 Body weight 64.05 kg Blanka Pethazel DO Work Phone: [facility] 03-22-2024 09:49-0400 Diastolic blood pressure 72 mm[Hg] Blanka Aguirre DO Work Phone: [facility] 03-22-2024 09:49-0400 Heart rate 81 /min Blanka Aguirre DO Work Phone: [facility] 03-22-2024 09:49-0400 SaO2% (BldA) [Mass fraction] 98 % Blanka Aguirre DO Work Phone: [facility] 03-22-2024 09:49-0400 Systolic blood pressure 126 mm[Hg] Blanka Aguirre DO Work Phone: [facility] 03-21-2024 08:26-0400 Body height 160.02 cm [facility] 03-21-2024 08:26-0400 Body mass index (BMI) [Ratio] 24.6 kg/m2 [facility] 03-21-2024 08:26-0400 Body weight 63.04 kg [facility] 03-21-2024 08:26-0400 Diastolic blood pressure 70 mm[Hg] [facility] 03-21-2024 08:26-0400 Heart rate 73 /min [facility] 03-21-2024 08:26-0400 Respiratory rate 18 /min [facility] 03-21-2024 08:26-0400 SaO2% (BldA) [Mass fraction] 99 % [facility] 03-21-2024 08:26-0400 Systolic blood pressure 118 mm[Hg] [facility] 03-05-2024 11:34-0400 Body mass index (BMI) [Ratio] 25.3 kg/m2 Linda DEVINE Work Phone: [facility] 03-05-2024 11:34-0400 Body weight 64.77 kg Linda DEVINE Work Phone: [facility] 03-05-2024 11:34-0400 Diastolic blood pressure 82 mm[Hg] Linda DEVINE Work Phone: [facility] 03-05-2024 11:34-0400 Systolic blood pressure 122 mm[Hg] Linda DEVINE Work Phone: [facility] 02-26-2024 13:28-0400 Body height 160.02 cm [facility] 02-26-2024 13:28-0400 Body mass index (BMI) [Ratio] 25.1 kg/m2 [facility] 02-26-2024 13:28-0400 Body weight 64.41 kg [facility] 02-26-2024 13:28-0400 Diastolic blood pressure 70 mm[Hg] [facility] 02-26-2024 13:28-0400 Heart rate 80 /min [facility] 02-26-2024 13:28-0400 SaO2% (BldA) [Mass fraction] 98 % [facility] 02-26-2024 13:28-0400 Systolic blood pressure 130 mm[Hg] [facility] 02-19-2024 15:29-0400 Body height 160.02 cm [facility] 02-19-2024 15:29-0400 Body mass index (BMI) [Ratio] 25.3 kg/m2 [facility] 02-19-2024 15:29-0400 Body weight 64.86 kg [facility] 02-19-2024 15:29-0400 Diastolic blood pressure 80 mm[Hg] [facility] 02-19-2024 15:29-0400 Heart rate 87 /min [facility] 02-19-2024 15:29-0400 SaO2% (BldA) [Mass fraction] 98 % [facility] 02-19-2024 15:29-0400 Systolic blood pressure 136 mm[Hg] [facility] 10-12-2023 08:26-0400 Body height 160.02 cm [facility] 10-12-2023 08:26-0400 Body mass index (BMI) [Ratio] 25.1 kg/m2 [facility] 10-12-2023 08:26-0400 Body weight 64.41 kg [facility] 10-12-2023 08:26-0400 Diastolic blood pressure 78 mm[Hg] [facility] 10-12-2023 08:26-0400 Heart rate 78 /min [facility] 10-12-2023 08:26-0400 SaO2% (BldA) [Mass fraction] 98 % [facility] 10-12-2023 08:26-0400 Systolic blood pressure 112 mm[Hg] [facility] 09-14-2023 09:36-0500 Body height 160.02 cm [facility] 09-14-2023 09:36-0500 Body mass index (BMI) [Ratio] 24.6 kg/m2 [facility] 09-14-2023 09:36-0500 Body weight 63.04 kg [facility] 09-14-2023 09:36-0500 Diastolic blood pressure 82 mm[Hg] [facility] 09-14-2023 09:36-0500 Heart rate 88 /min [facility] 09-14-2023 09:36-0500 SaO2% (BldA) [Mass fraction] 98 % [facility] 09-14-2023 09:36-0500 Systolic blood pressure 118 mm[Hg] [facility] 06-21-2023 07:56-0500 Body height 160 cm Marsha Landa FOURDRINIER WIRE WEAVER.SEAM RUBBING MACHINE OPERATOR Work Phone: [facility] 06-21-2023 07:56-0500 Body weight 63.96 kg Marsha Landa [employer]DRINIER WIRE WEAVER.SEAM RUBBING MACHINE OPERATOR Work Phone: [facility] 03-20-2023 08:57-0400 Body height 160 cm JAM Melgar MD Work Phone: [facility] 03-20-2023 08:57-0400 Body weight 61.24 kg JAM Melgar MD Work Phone: [facility] Encounters Encounter Date Encounter Type Care Provider Facility Start: 08-06-2024 End: 08-06-2024 ambulatory Blanka Mercer PT Work Phone: [facility] PT Comment on above: Thoracic spine pain (Primary Dx); Thoracic spondylosis Start: 08-06-2024 End: 08-06-2024 Bamboo flowsheet Blanka Mercer PT Work Phone: [facility] Start: 08-06-2024 End: 08-06-2024 Bamboo flowsheet Blanka Mercer PT Work Phone: [facility] Start: 08-02-2024 End: 08-02-2024 Bamboo flowsheet Sweta Wengerd SERVICE AIDE [facility] Start: 08-02-2024 End: 08-02-2024 Bamboo flowsheet Sweta Wengerd SERVICE AIDE [facility] Start: 08-02-2024 End: 08-02-2024 ambulatory Sweta Wengerd SERVICE AIDE [facility] Comment on above: Thoracic spine pain (Primary Dx); Thoracic spondylosis Start: 08-01-2024 End: 08-01-2024 ambulatory LINDA CARRILLO Not Available Start: 07-31-2024 End: 07-31-2024 Office outpatient visit 15 minutes Martín Brian DO Work Phone: [facility] Comment on above: Pre-op examination; Pelvic pain in female; Complex cyst of left ovary Start: 07-31-2024 End: 07-31-2024 Preprocedural examination done Martín Brian DO Work Phone: [facility] Start: 07-31-2024 End: 07-31-2024 Bamboo flowsheet Martín Brian DO Work Phone: [facility] Start: 07-31-2024 End: 07-31-2024 Bamboo flowsheet Martín Brian DO Work Phone: [facility] Start: 07-31-2024 End: 07-31-2024 ambulatory MARTÍN BRIAN Not Available Start: 07-25-2024 End: 07-25-2024 ambulatory Sweta Wengerd SERVICE AIDE [facility] Comment on above: Thoracic spine pain (Primary Dx); Thoracic spondylosis Start: 07-25-2024 End: 07-25-2024 Bamboo flowsheet Sweta Wengerd SERVICE AIDE [facility] Start: 07-25-2024 End: 07-25-2024 Bamboo flowsheet Sweta Wevitaliyerd SERVICE AIDE [facility] Start: 07-23-2024 End: 07-23-2024 ambulatory BLANKA D JOSSYDLACH Not Available Start: 07-23-2024 End: 07-23-2024 Bamboo flowsheet Blanka D Gundlach PT Work Phone: [facility] Start: 07-23-2024 End: 07-23-2024 Bamboo flowsheet Blanka D Gundlach PT Work Phone: [facility] Start: 07-18-2024 End: 07-18-2024 ambulatory Blanka D Gundlach PT Work Phone: [facility] PT Comment on above: Thoracic spine pain (Primary Dx); Thoracic spondylosis Start: 07-18-2024 End: 07-18-2024 Bamboo flowsheet Blanka D Gundlach PT Work Phone: [facility] Start: 07-18-2024 End: 07-18-2024 Bamboo flowsheet Blanka D Gundlach PT Work Phone: [facility] Start: 07-11-2024 End: 07-11-2024 ambulatory Blanka D Gundlach PT Work Phone: [facility] PT Comment on above: Thoracic spine pain (Primary Dx); Thoracic spondylosis Start: 07-11-2024 End: 07-11-2024 Bamboo flowsheet Blanka D Gundlach PT Work Phone: [facility] Start: 07-11-2024 End: 07-11-2024 Bamboo flowsheet Blanka D Gundlach PT Work Phone: [facility] Start: 07-08-2024 End: 07-08-2024 Bamboo flowsheet Blanka D Gundlach PT Work Phone: [facility] Start: 07-08-2024 End: 07-08-2024 Bamboo flowsheet Blanka D Gundlach PT Work Phone: [facility] Start: 07-08-2024 End: 07-08-2024 ambulatory Blanka Fentonmariamaach PT Work Phone: [facility] PT Comment on above: Thoracic spine pain (Primary Dx); Thoracic spondylosis Start: 07-01-2024 End: 07-01-2024 Bamboo flowsheet Blanka D Gundlach PT Work Phone: [facility] Start: 07-01-2024 End: 07-01-2024 Bamboo flowsheet Blanka D Gundlach PT Work Phone: [facility] Start: 07-01-2024 End: 07-01-2024 Office outpatient visit 15 minutes Martín Torres DO Work Phone: [facility] Comment on above: Complex ovarian cyst ; Pelvic pain in female; Encounter to discuss test results Start: 07-01-2024 End: 07-01-2024 ambulatory Blankaanthony Fentonmariamaach PT Work Phone: [facility] PT Comment on above: Thoracic spine pain (Primary Dx); Thoracic spondylosis Start: 06-27-2024 End: 06-27-2024 ambulatory BLANKA FENTONMARIAMAVALENTIN Not Available Start: 06-27-2024 End: 06-27-2024 ambulatory Blanka D Jossydlach PT Work Phone: [facility] Comment on above: Thoracic spine pain (Primary Dx); Thoracic spondylosis Start: 06-27-2024 End: 06-27-2024 Bamboo flowsheet Sweta Wengerd SERVICE AIDE [facility] Start: 06-27-2024 End: 06-27-2024 Bamboo flowsheet Sweta Wengerd SERVICE AIDE [facility] Start: 06-20-2024 End: 06-20-2024 ambulatory Blanka D Jossydlach PT Work Phone: [facility] PT Comment on above: Thoracic spine pain (Primary Dx); Thoracic spondylosis Start: 06-20-2024 End: 06-20-2024 Bamboo flowsheet Blanka D Gundlach PT Work Phone: [facility] Start: 06-20-2024 End: 06-20-2024 Bamboo flowsheet Blanka D Gundlach PT Work Phone: [facility] Start: 06-18-2024 End: 06-18-2024 ambulatory Blanka D Gundlach PT Work Phone: [facility] PT Comment on above: Thoracic spine pain (Primary Dx); Thoracic spondylosis Start: 06-18-2024 End: 06-18-2024 Bamboo flowsheet Blanka D Gundlach PT Work Phone: [facility] Start: 06-18-2024 End: 06-18-2024 Bamboo flowsheet Blanka D Gundlach PT Work Phone: [facility] Start: 06-12-2024 End: 06-12-2024 Bamboo flowsheet Blanka D Gundlach PT Work Phone: [facility] Start: 06-12-2024 End: 06-12-2024 Bamboo flowsheet Blanka D Gundlach PT Work Phone: [facility] Start: 06-12-2024 End: 06-12-2024 Clinisync Result Encounter Martín Torres DO Work Phone: [facility] External Department Unsolicited Start: 06-12-2024 End: 06-12-2024 ambulatory Blanka D Gundlach PT Work Phone: [facility] Comment on above: Thoracic spine pain (Primary Dx); Thoracic spondylosis Start: 06-10-2024 End: 06-10-2024 Bamboo flowsheet Blanka D Gundlach PT Work Phone: [facility] Start: 06-10-2024 End: 06-10-2024 Bamboo flowsheet Blanka D Gundlach PT Work Phone: [facility] Start: 06-10-2024 End: 06-10-2024 ambulatory Blanka D Gundlach PT Work Phone: [facility] PT Comment on above: Thoracic spine pain (Primary Dx); Thoracic spondylosis Start: 06-05-2024 End: 06-08-2024 ambulatory Blanka D Gundlach PT Work Phone: [facility] PT Comment on above: Thoracic spine pain (Primary Dx); Thoracic spondylosis Start: 06-05-2024 End: 06-05-2024 Bamboo flowsheet Blanka D Gundlach PT Work Phone: [facility] Start: 06-05-2024 End: 06-05-2024 Bamboo flowsheet Blanka D Gundlach PT Work Phone: [facility] PT Start: 06-03-2024 End: 06-03-2024 Bamboo flowsheet Blanka D Gundlach PT Work Phone: [facility] PT Start: 06-03-2024 End: 06-03-2024 Bamboo flowsheet Blanka D Gundlach PT Work Phone: [facility] PT Start: 06-03-2024 End: 06-03-2024 ambulatory Blanka D Gundlach PT Work Phone: [facility] PT Comment on above: Thoracic spine pain (Primary Dx); Thoracic spondylosis Start: 05-31-2024 End: 05-31-2024 Bamboo flowsheet Blanka D Gundlach PT Work Phone: [facility] Start: 05-31-2024 End: 05-31-2024 Bamboo flowsheet Blanka D Gundlach PT Work Phone: [facility] PT Start: 05-31-2024 End: 05-31-2024 ambulatory Blanka D Gundlach PT Work Phone: [facility] PT Comment on above: Thoracic spine pain (Primary Dx); Thoracic spondylosis Start: 05-29-2024 End: 05-29-2024 Bamboo flowsheet Blanka D Gundlach PT Work Phone: [facility] Start: 05-29-2024 End: 05-29-2024 Bamboo flowsheet Blanka D Gundlach PT Work Phone: [facility] Start: 05-29-2024 End: 05-29-2024 ambulatory Blanka D Gundlach PT Work Phone: [facility] PT Comment on above: Thoracic spine pain (Primary Dx); Thoracic spondylosis Start: 05-24-2024 End: 05-24-2024 Bamboo flowsheet Blanka D Gundlach PT Work Phone: [facility] Start: 05-24-2024 End: 05-24-2024 Bamboo flowsheet Blanka D Gundlach PT Work Phone: [facility] PT Start: 05-24-2024 End: 05-24-2024 ambulatory Blanka D Gundlach PT Work Phone: [facility] PT Comment on above: Thoracic spine pain (Primary Dx); Thoracic spondylosis Start: 05-22-2024 End: 05-22-2024 Bamboo flowsheet Blanka D Gundlach PT Work Phone: [facility] PT Start: 05-22-2024 End: 05-22-2024 Bamboo flowsheet Blanka D Gundlach PT Work Phone: [facility] PT Start: 05-22-2024 End: 05-22-2024 ambulatory Blanka D Gundlach PT Work Phone: [facility] PT Comment on above: Thoracic spine pain (Primary Dx); Thoracic spondylosis Start: 05-17-2024 End: 05-17-2024 Bamboo flowsheet Blanka D Gundlach PT Work Phone: [facility] Start: 05-17-2024 End: 05-17-2024 Bamboo flowsheet Blanka D Gundlach PT Work Phone: [facility] Start: 05-17-2024 End: 05-17-2024 ambulatory Blanka D Gundlach PT Work Phone: [facility] Comment on above: Thoracic spine pain (Primary Dx); Thoracic spondylosis Start: 05-14-2024 End: 05-14-2024 ambulatory MARSHA LANDA Facility:[facility] Start: 05-14-2024 End: 05-14-2024 Patient encounter procedure Marsha Landa [employer]INIER WIRE WEAVER.SEAM RUBBING MACHINE OPERATOR Work Phone: [facility] Comment on above: Thoracic spondylosis (Primary Dx); [...] 05-13-2024 End: 05-13-2024 Telephone encounter Marsha Landa [employer]INIER WIRE WEAVER.SEAM RUBBING MACHINE OPERATOR Work Phone: [facility] Comment on above: Patient Question Start: 05-13-2024 End: 05-13-2024 Patient encounter procedure Linda DEVINE Work Phone: [facility] Start: 05-13-2024 End: 05-13-2024 Periodic preventive med est patient 40-64yrs Linda DEVINE Work Phone: [facility] Comment on above: Well woman exam with routine gynecological exam; Other screening mammogram; Surgical menopause Start: 05-13-2024 End: 05-13-2024 ambulatory LINDA CARRILLO Not Available Start: 05-02-2024 Non-patient / Non-visit PHYSICIAN NO [facility] Work Phone: Start: 05-02-2024 End: 05-02-2024 Admission to same day surgery center PHYSICIAN NO [facility] Work Phone: Start: 05-02-2024 End: 05-02-2024 ambulatory PHYSICIAN NO [facility] Work Phone: Start: 05-02-2024 End: 05-02-2024 Patient encounter procedure PHYSICIAN NO [facility] [address] Work Phone: Start: 05-02-2024 End: 05-02-2024 ambulatory PHYSICIAN NO [facility] Work Phone: Start: 05-01-2024 End: 05-01-2024 ambulatory PHYSICIAN NO [facility] Work Phone: Start: 05-01-2024 End: 05-01-2024 Patient encounter procedure PHYSICIAN NO [facility] Work Phone: Start: 04-25-2024 End: 04-25-2024 ambulatory Kyle Zhu Facility:[facility] Start: 04-25-2024 End: 04-25-2024 Subsequent hospital visit by physician [facility] Rad[facility] Scan Comment on above: Abdominal pain, unsp ecified abdominal location [R10.9] Start: 04-10-2024 End: 04-10-2024 Patient encounter procedure Kyle Zhu MD Work Phone: Gastroenterology Comment on above: Abdominal pain, unsp ecified abdominal location (Primary Dx) Start: 04-10-2024 End: 04-10-2024 ambulatory Kyle Zhu Facility:[facility] Start: 04-08-2024 End: 04-08-2024 ambulatory [facility] Start: 04-02-2024 End: 04-02-2024 ambulatory BLANKA AGUIRRE Not Available Start: 04-02-2024 End: 04-02-2024 Patient encounter procedure [facility] Work Phone: Start: 04-02-2024 End: 04-02-2024 ambulatory PHYSICIAN NO [facility] Work Phone: Start: 04-02-2024 End: 04-02-2024 Departed Referred FOURDRINIER WIRE WEAVER Genevieve Jung Work Phone: [facility] [place] Work Phone: Start: 03-22-2024 End: 03-22-2024 Office outpatient new 45 minutes Blanka Bose Carla DO Work Phone: [phone] Comment on above: Generalized abdomina l pain (Primary Dx); Gastroesophageal reflux disease, unspecified whether esophagitis present Start: 03-22-2024 End: 03-22-2024 ambulatory BLANKA Bose CARLA Not Available Start: 03-21-2024 End: 03-21-2024 ambulatory [facility] Work Phone: Start: 03-21-2024 End: 03-21-2024 Patient encounter procedure [facility] Physician [facility] Work Phone: Start: 03-18-2024 End: 03-18-2024 ambulatory [facility] Start: 03-18-2024 End: 03-18-2024 ambulatory [facility] Start: 03-13-2024 Non-patient / Non-visit [facility] Physician [facility] Work Phone: Start: 03-12-2024 End: 03-12-2024 ambulatory LINDA CARRILLO Not Available Start: 03-05-2024 End: 03-05-2024 Bamboo flowsheet Linda DEVINE Work Phone: [facility] Start: 03-05-2024 End: 03-05-2024 Bamboo flowsheet Linda Carrillo PA Work Phone: [facility] Start: 03-05-2024 End: 03-05-2024 ambulatory LINDA CARRILLO Not Available Start: 03-05-2024 End: 03-05-2024 Office outpatient visit 15 minutes Linda DEVINE Work Phone: [facility] Comment on above: Encounter to discuss test results; Pelvic pain in female Start: 03-04-2024 Non-patient / Non-visit [facility] Work Phone: Start: 03-04-2024 End: 03-04-2024 ambulatory [facility] Start: 02-26-2024 End: 02-26-2024 ambulatory [facility] Work Phone: Start: 02-26-2024 End: 02-26-2024 Patient encounter procedure [facility] Work Phone: Start: 02-19-2024 End: 02-19-2024 ambulatory [facility] Work Phone: Start: 02-19-2024 End: 02-19-2024 Patient encounter procedure [facility] Work Phone: Start: 10-26-2023 End: 10-26-2023 ambulatory BETHANY John MARIA ANTONIA Not Available Start: 10-12-2023 Patient encounter status [facility] Start: 10-12-2023 End: 10-12-2023 ambulatory [facility] Work Phone: Start: 10-12-2023 End: 10-12-2023 Encounter for general adult medical examination without abnormal findings [facility] Start: 10-12-2023 End: 10-12-2023 Patient encounter procedure [facility] Work Phone: Start: 09-14-2023 End: 09-14-2023 Patient encounter procedure [facility] Work Phone: Start: 06-21-2023 End: 06-21-2023 ambulatory MARSHA LANDA Facility:[facility] Start: 06-21-2023 End: 06-21-2023 Patient encounter procedure Marsha Landa [employer]IER WIRE WEAVER.SEAM RUBBING MACHINE OPERATOR Work Phone: [facility] Comment on above: Right leg pain (Prim antonietta Dx); Numbness and tingling of right lower extremity; Piriformis syndrome, right Start: 03-23-2023 End: 03-23-2023 ambulatory MD Agustin Mortensen Work Phone: [facility] Work Phone: Start: 03-23-2023 End: 03-23-2023 Patient encounter procedure MD Agustin Mortensen Work Phone: [facility] [address] Work Phone: Start: 03-20-2023 End: 03-20-2023 Patient encounter procedure Oscar Melgar MD Work Phone: Plastic Surgery Comment on above: Encounter for cosmet ic surgery (Primary Dx) Start: 10-20-2022 End: 10-21-[address] AGUSTIN MORTENSEN Facility:[facility] Start: 10-11-2022 End: 10-12-2022 ambulatory LORRI Tiwari [facility] Facility:[facility] Procedures Date Procedure Procedure Detail Performing Clinician Start: 08-01-2024 Mammography Sweta Timarturo SERVICE AIDE Start: 06-12-2024 [facility] Martín Brian DO Work Phone: Start: 05-13-2024 IGP,APTIMA HPV,AGE GDLN Linda DEVINE Work Phone: Start: 05-02-2024 Esophagogastroduodenoscopy PHYSICIAN NO FAMILY Start: 05-02-2024 MR thoracic spine wo con PHYSICIAN NO FA [facility]ESLY Start: 05-02-2024 XR pre/post mri xray PHYSICIAN NO FAMILY Start: 04-25-2024 Ct abdomen & pelvis w/contrast material Kyle hZu MD Work Phone: Start: 04-02-2024 Bacteria identified [...] Healthcare Start: 04-10-2027 Diabetes Screening Diabetes Screenin g [facility] Start: 01-30-2026 Diabetes Screening Diabetes Screenin g [facility] Start: 08-01-2025 Screening for malign ant neoplasm of breast Mammogram [facility] Start: 05-15-2025 End: 05-15-2025 Patient encounter procedure 05/15/2025 11:00 AM EST Office Visit [facility] [address] [place] [address] Linda Carrillo PA [address] [place] [address] [facility] Start: 10-24-2024 End: 10-24-2024 Patient encounter procedure 10/24/2024 8:40 AM EDT Office Visit [facility] [address] [place] [id number] Bethany Chang, [employer]DR[employer]IER WIRE WEAVER-SEAM RUBBING MACHINE OPERATOR [address] [place] [address] [facility] Start: 08-06-2024 End: 08-06-2024 ambulatory [facility] Comment on above: Arrived Start: 08-02-2024 End: 08-02-2024 ambulatory 08/02/2024 7:30 AM EST Treatment [facility] [address] [place] [id number] Sweta Alaniz PTA Arrived [facility] Comment on above: Arrived Start: 08-01-2024 End: 08-01-2024 ambulatory 08/01/2024 3:00 PM EST Treatment [facility] [address] [place] [id number] Blanka Mercer, PT [address] [place] [address] [facility] Start: 08-01-2024 End: 08-01-2024 Professional / ancillary services management 08/01/2024 8:30 AM EST Ancillary Procedure [facility] [place] [address] [place] [address] [facility] Start: 07-31-2024 End: 07-31-2024 Patient encounter procedure [facility] Comment on above: Arrived Start: 07-31-2024 End: 07-31-2024 Professional / ancillary services management 07/31/2024 1:00 PM EST Ancillary Procedure [facility] [address] [place] [address] [place] [address] [facility] Start: 07-30-2024 End: 07-30-2024 ambulatory 07/30/2024 4:00 PM EST Treatment [facility] [address] [place] [id number] Blanka Mercer, PT [address] [place] [address] [facility] Start: 07-25-2024 End: 07-25-2024 ambulatory [facility] Comment on above: Arrived Start: 07-23-2024 End: 07-23-2024 ambulatory [facility] Comment on above: Arrived Start: 07-18-2024 End: 07-18-2024 ambulatory [facility] Comment on above: Arrived Start: 07-16-2024 End: 07-16-2024 ambulatory 07/16/2024 4:30 PM EST Treatment [facility] [address] [place] [phone] Blanka Mercer, PT [address] [place] [address] [facility] [facility] Start: 07-11-2024 End: 07-11-2024 ambulatory [facility] Comment on above: Arrived Start: 07-08-2024 End: 07-08-2024 ambulatory [facility] Comment on above: Arrived Start: 07-01-2024 End: 07-01-2025 US for US PELVIS-TRANSVAG IF INDICATED Imaging Routine Complex ovarian cyst Pelvic pain in female Expected: 07/01/2024 (Approximate), Expires: 07/01/2025 [facility] Work Phone: Comment on above: Expected: 07/01/2024 (Approximate), Expires: 07/01/2025 Start: 07-01-2024 End: 07-01-2024 Patient encounter procedure 07/01/2024 8:30 AM EST Office Visit [facility] [address] [place] [phone] Martín Torres, DO [address] [place] [address] [facility] Start: 07-01-2024 End: 07-01-2024 ambulatory [facility] Comment on above: Arrived Start: 06-27-2024 End: 06-27-2024 ambulatory [facility] Comment on above: Arrived Start: 06-25-2024 End: 06-25-2024 ambulatory 06/25/2024 5:00 PM EST Treatment [facility] [address] [place] [phone] Blanka Mercer, PT [address] [place] [address] [facility] Start: 06-23-2024 Screening for malign ant neoplasm of colon [facility] Start: 06-20-2024 End: 06-20-2024 ambulatory [facility] Comment on above: Arrived Start: 06-18-2024 End: 06-18-2024 ambulatory 06/18/2024 5:00 PM EST Treatment [facility] [address] [place] [phone] Blanka Mercer, PT [address] [place] [address] [facility] Start: 06-12-2024 Screening for malign ant neoplasm of breast [facility] Start: 06-12-2024 End: 06-12-2024 ambulatory [facility] Comment on above: Arrived Start: 06-10-2024 End: 06-10-2024 ambulatory [facility] Comment on above: Arrived Start: 06-05-2024 End: 06-05-2024 ambulatory [facility] Comment on above: Arrived Start: 06-03-2024 End: 06-03-2024 ambulatory [facility] Comment on above: Arrived Start: 06-03-2024 End: 06-03-2024 Patient encounter procedure 06/03/2024 8:00 AM EST Office Visit [facility] [address] [place] [address] [place] [address] Marsha Landa, [employer] WIRE WEAVER.SEAM RUBBING MACHINE OPERATOR [address] [place], [place] [id number] back pain [facility] Comment on above: back pain Start: 05-31-2024 End: 05-31-2024 ambulatory [facility] Comment on above: Arrived Start: 05-29-2024 End: 05-29-2024 ambulatory [facility] Comment on above: Arrived Start: 05-24-2024 End: 05-24-2024 ambulatory 05/24/2024 7:00 AM EST Treatment [facility] [address] [place] [phone] Blanka Mercer, PT [address] [place] [address] [facility] Start: 05-22-2024 End: 05-22-2024 ambulatory 05/22/2024 7:30 AM EST Treatment [facility] [address] [place] [phone] Blanka Mercer, PT [address] [place] [address] [facility] Start: 05-20-2024 End: 05-20-2024 Professional / ancillary services management 05/20/2024 11:00 AM EST Ancillary Procedure [facility] [address] [place] [address] [facility] Start: 05-17-2024 End: 05-17-2024 ambulatory 05/17/2024 12:30 PM EST Evaluation [facility] [address] [place] [phone] Blanka Mercer, PT [address] [place] [address] Arrived [facility] Comment on above: Arrived Start: 05-14-2024 End: 05-14-2024 Patient encounter procedure 05/14/2024 3:30 PM EST Office Visit [facility] [address] [place], [place] [id number] Marsha Landa, [employer] W[employer] WEAVER.SEAM RUBBING MACHINE OPERATOR [address] [place] [address] tightness in my upper abdomen and under my ribs [facility] Comment on above: tightness in my uppe r abdomen and under my ribs Start: 05-13-2024 End: 07-13-2025 MG Breast - bilateral Screening Bilateral screening mammogram Imaging Routine Well woman exam with routine gynecological exam Other screening mammogram Expected: 05/13/2024, Expires: 07/13/2025 [facility] Work Phone: Comment on above: Expected: 05/13/2024 , Expires: 07/13/2025 Start: 05-13-2024 End: 05-13-2024 Patient encounter procedure [facility] Comment on above: Arrived Start: 05-02-2024 [facility] Start: 05-02-2024 MR Thoracic spine [facility] Start: 05-02-2024 MR thoracic spine wo con MR th oracic spine wo con [facility] Start: 05-02-2024 XR pre/post mri xray XR pre/post mri xray [facility] Start: 05-02-2024 End: 05-02-2024 [facility] Start: 04-25-2024 End: 04-25-2024 Patient encounter procedure Radiology Ct Scan Comment on above: CT ENTEROGRAPHY W IV CON Start: 04-16-2024 End: 04-16-2024 Professional / ancillary services management 04/16/2024 8:30 AM EDT Ancillary Procedure [facility] [address] [place] [address] [facility] Start: 04-10-2024 End: 07-10-2024 25-hydroxyvitamin D3 [Mass/volume] in Serum or Plasma [facility] Comment on above: Expected: 04/10/2024 , Expires: 07/10/2024 Start: 04-10-2024 End: 07-10-2024 C reactive protein [Mass/volume] in Serum or Plasma [facility] Comment on above: Expected: 04/10/2024 , Expires: 07/10/2024 Start: 04-10-2024 End: 07-10-2024 Comprehensive metabolic 2000 panel - Serum or Plasma [facility] Work Phone: Comment on above: Expected: 04/10/2024 , Expires: 07/10/2024 Start: 04-02-2024 Bacteria identified in Urine by Culture [facility] Start: 03-10-2024 Covid-19 Vaccine ( season) Covid-19 Vaccine ( season) [facility] Start: 03-10-2024 Influenza vaccination Influenza Vacc ine (#1) [facility] Start: 03-05-2024 End: 03-05-2025 US for US PELVIS-TRANSVAG IF INDICATED Imaging Routine Pelvic pain in female Expected: 03/05/2024 (Approximate), Expires: 03/05/2025 [facility] Work Phone: Comment on above: Expected: 03/05/2024 (Approximate), Expires: 03/05/2025 Start: 04-25-2023 Shingrix Vaccine (2 of 2) Shingrix Vaccine (2 of 2) [facility] Start: 03-10-2023 Influenza vaccination C [facility] Start: 07-10-2022 DEPRESSION ASSESSMENT DEPRESSION ASS ESSMENT [facility] Start: 2020 SHINGRIX VACCINE (1 of 2) SHINGRIX VACCINE (1 of 2) [facility] Start: 12-07-2015 COLOGUARD (FIT-DNA) COLOGUARD (FIT-D NA) [facility] Start: 12-07-2015 Colonoscopy COLONOSCOPY [facility] Start: 12-07-2015 COLORECTAL CANCER SCREENING COLORECTAL CANCER SCREENING [facility] Start: 12-07-[address] COLONOGRAPHY [facility] Start: 12-07-2015 DIABET[facility]CREEN [facility] Start: 12-07-2015 Diabetes Screening Diabetes Screenin g [facility] Start: 12-07-2015 FECAL OCCULT BLOOD FECAL OCCULT BLOO D [facility] Start: 12-07-2015 Lipid panel Lipid Screening [facility] Start: 12-07-2015 LIPID SCREEN LIPID SCREEN [facility] Start: 12-07-2015 Screening for malign ant neoplasm of colon [facility] Start: 12-07-2015 SIGMOIDOSCOPY SIGMOIDOSCOPY [facility] Start: 2010 Mammography MAMMOGRAM [facility] Start: 2000 HPV TESTING HPV TESTING [facility] Start: 2000 Screening for malign ant neoplasm of cervix HPV Testing [facility] Start: 12-07-1991 PAP TESTING PAP TESTING [facility] Start: 12-07-1991 Screening for malign ant neoplasm of cervix [facility] Start: 1989 Hepatitis B Vaccine (1 of 3 - 19+ 3-dose series) Hepatitis B Vaccine (1 of 3 - 19+ 3-dose series) [facility] Start: 1989 Urine microalbumin profile [facility] Start: 1988 Anxiety Screening Anxiety Screening [facility] Start: 1988 Depression Screening Depression Scre ening [facility] Start: 1988 HEPATITIS C SCREENING HEPATITIS C [facility] Start: 1988 Hepatitis C screening Hepatitis C [facility] Start: 1988 HIV SCREENING HIV SCREENING [facility] Start: 1988 HIV screening HIV Screening [facility] Start: 06-08-1971 COVID-19 VACCINE (#1) COVID-19 VACCI NE (#1) [facility] Start: 1970 HEPATITIS B (1 of 3 - 3-dose series) HEPATITIS B (1 of 3 - 3-dose series) [facility] Start: 1970 Hepatitis B Vaccine (1 of 3 - 3-dose series) Hepatitis B Vaccine (1 of 3 - 3-dose series) [facility] Start: 1970 Screening for malign ant neoplasm of colon [facility] Cardiovascular stres s testing [facility] Comprehensive metabo lic 1999 panel - Serum or Plasma [facility] CT Abdomen and Pelvi s WO and W contrast IV CT abdomen pelvis w and wo IV contrast Imaging Routine Generalized abdominal pain Ordered: 03/24/2024 [facility] Work Phone: Comment on above: Ordered: 03/24/2024 End: 05-10-2025 CT Small bowel W contrast PO and W contrast IV CT ENTEROGRAPHY W IVCON Radiology Routine Abdominal pain, unspecified abdominal location 1 Occurrences starting 04/10/2024 until 05/10/2025 [facility] Comment on above: 1 Occurrences starti ng 04/10/2024 until 05/10/2025 Holter monitor study [facility] Patient Education Know your Meds [facility] Work Phone: THIN PREP TIS PAP AN D HR HPV DNA THIN PREP TIS PAP AND HR HPV DNA Pathology and Cytology Routine Well woman exam with routine gynecological exam Ordered: 05/13/2024 [facility] Comment on above: Ordered: 05/13/2024 US Abdomen limited [facility] US Pelvis [facility] Immunizations Immunization Date Immunization Notes Care Provider Fa sary 02-28-2023 zoster vaccine recombinant [facility] 11-03-2020 COVID-19 Ad26.COV2.S (Anabell) [facility] Payers Date Payer Category Payer Self-pay [id number] 2023 Unknown [id number] 2023 Unknown [id number] 2022 Private Health Insurance [id number] 2022 Unknown [id number]. [id number] 1970 Unknown [id number] 2.16.84 0.1.953191.3.579.2.593 1970 Unknown [id number] 2.16.84 0.1.375186.3.579.2.593 1970 Unknown [id number] 2.16.84 0.1.902608.3.579.2.1258 1970 Unknown [id number] 2.16.84 0.1.642708.3.579.2.1258 1970 Unknown [id number] 2.16.84 0.1.332839.3.579.2.1258 1970 Unknown [id number] 2.16.84 0.1.004932.3.579.2.1258 1970 Unknown [id number] 2.16.84 0.1.235878.3.579.2.1258 1970 Unknown [id number] 2.16.84 0.1.721909.3.579.2.1258 1970 Unknown [id number] 2.16.84 0.1.477664.3.579.2.1258 1970 Unknown [id number] 2.16.84 0.1.631565.3.579.2.1258 1970 Unknown [id number] 2.16.84 0.1.108812.3.579.2.1258 1970 Unknown [id number] 2.16.84 0.1.820461.3.579.2.1258 1970 Unknown [id number] 2.16.84 0.1.008342.3.579.2.1258 1970 Unknown [id number] 2.16.84 0.1.921286.3.579.2.1258 1970 Unknown [id number] 2.16.84 0.1.481226.3.579.2.1258 1970 Unknown [id number] 2.16.84 0.1.879420.3.579.2.1258 1970 Unknown [id number] 2.16.84 0.1.510954.3.579.2.1258 1970 Unknown [id number] 2.16.84 0.1.981819.3.579.2.1258 1970 Unknown [id number] 2.16.84 0.1.966575.3.579.2.1258 1970 Unknown [id number] 2.16.84 0.1.015199.3.579.2.1258 1970 Unknown [id number] 2.16.84 0.1.184111.3.579.2.1258 1970 Unknown [id number] 2.16.84 0.1.073305.3.579.2.1258 1970 Unknown [id number] 2.16.84 0.1.263269.3.579.2.1258 1970 Unknown [id number] 2.16.84 0.1.225849.3.579.2.1258 1970 Unknown [id number] 2.16.84 0.1.216719.3.579.2.1258 1970 Unknown [id number] 2.16.84 0.1.532652.3.579.2.1258 1970 Unknown [id number] 2.16.84 0.1.667593.3.579.2.1258 1970 Unknown [id number] 2.16.84 0.1.091183.3.579.2.1258 1970 Unknown [id number] 2.16.84 0.1.523465.3.579.2.1258 1970 Unknown [id number] 2.16.84 0.1.772469.3.579.2.1258 1970 Unknown [id number] 2.16.84 0.1.698366.3.579.2.1259 1970 Unknown [id number] 2.16.84 0.1.862507.3.579.2.1259 1959 Unknown [id number] 1959 Unknown [id number] Unknown [id number] 2.16.8 40.1.721664.3.579.2.531 Unknown [id number] 2.16.8 40.1.755493.3.579.2.531 Unknown [id number] 2.16.8 40.1.590496.3.579.2.531 Social History Date Type Detail Facility Tobacco smoking stat us NHIS Tobacco smoking consumption unknown [facility] Start: 03-14-2023 End: 03-20-2024 History of Social function [facility] Start: 03-14-2023 End: 03-20-2024 Area Deprivation Index [facility] National Score (1-10 0), lower number is lower risk 61 [facility] Start: 1970 Sex Assigned At Not on file [facility] Start: 1970 Sex Assigned At Female [facility] Start: 10-12-2023 End: 10-26-2023 Tobacco smoking status NHIS Never smoked tobacco (finding) [facility] Start: 04-10-2024 Tobacco use and exposure Smokeless tobacco non-user [facility] Start: 04-10-2024 Alcoholic beverage intake Ex-drinker (finding) [facility] Start: 03-22-2024 End: 07-01-2024 Alcoholic beverage intake Current drinker of alcohol (finding) [facility] Do you belong to any clubs or organizations such as temple groups, unions, fraternal or athletic groups, or [...] - these days [OSQ] To some extent [facility] (I/We) worried wheth er (my/our) food would run out before (I/we) got money to buy more. Never true [facility] Start: 03-15-2023 Alcohol Comment 1-2 drinks less than monthly in the past year, Caffeine intake: 1-2 cups per day coffee [facility] Start: 03-16-2023 Gender identity Identifies as female gender (finding) [facility] Goals Date Patient Goal Desired Activity /State Clinical Notes 01-06-2015 to 08-06-2024 Blanka Mercer, PT - 08/06/2024 5:00 PM ESTMiranruthie Romo - 07/31/2024 2:10 PM Luis Mercer, PT - 07/18/2024 5:00 PM ESTMeaghanttitalia Mercer, PT - 07/11/2024 4:30 PM EST Note Date & Type Note Facility 08-06-2024 History of Presen t illness Narrative Images from the original note were not included. Physical Therapy Physical Therapy Treatment Visit Patient Name: Socorro Gallagher Today's Date: 08/06/2024 Reason: Thoracic spine/rib pain Visit number: 6; 18 total Supervised time: 30 minutes Total time: 55 minutes Precautions: as tolerated Subjective: Pain: mild pain at times with work primarily. Otherwise doing very well with minimal to no symptoms. Overall progress: Improving. Reports >75% improvement overall with mild pain recurrence at times. This improves with HEP. Will put on hold from formal PT with independent HEP. Imaging: MRI shows diffuse broad based disc bulges in thoracic spine with minimal foraminal encroachment. Objective: THORACIC AROM: Flexion to toes Extension WFL B rot WFL Normal LL rotation Joint play: normal Special Test: - slump, SLR Treatment: Therapeutic Exercise: x30 minutes, supervised, x 10 minutes per flowsheet of flexibility, core stability, strength Modalities: x15 minutes prone IFC/heat to upper thoracic spine at start of session. Assessment: Goal 1: Pt will report >95% improvement in current symptoms. -nearly met Goal 2: Pt will have normal, pain free AROM of thoracic spine in all planes.-met Goal 3: Pt will tolerate sitting with no pain. -met Goal 4: Pt will demo normal thoracic spine joint mobility.-met Plan On hold with HEP. documented in this encounter [facility] 07-31-2024 History of Presen t illness Narrative Reason for Appointment: Patient ID: Socorro Gallagher is a 53 y.o. female who presents for Pre-op Visit Patient presents today for Pre Op appointment. Patient is scheduled to undergo Da Chavez assisted Diagnostic Laparoscopy, possible ALEXANDRA, possible FOE, possible BSO on 08/30/[address] Torres at [facility]. MEDICATIONS Current Outpatient Medications Medication Instructions aspirin 81 MG EC tablet Daily busPIRone (Buspar) 5 MG tablet 2 times daily estradiol (ESTRACE) 0.5 mg, Oral, Daily LORazepam (ATIVAN) 0.5 mg, Every 6 hours PRN pantoprazole (PROTONIX) 40 mg, Oral, Daily before breakfast Tretinoin ([place]reno) 0.05 % lotion Apply thin layer to face at bedtime ALLERGIES No Known Allergies PROBLEMS Active Ambulatory Problems Diagnosis Date Noted Well woman exam with routine gynecological exam 05/13/2024 Complex ovarian cyst 07/01/2024 Pelvic pain in female 07/01/2024 Encounter to discuss test results 07/01/2024 Resolved Ambulatory Problems Diagnosis Date Noted No [...] Respiratory: Negative. Cardiovascular: Negative. Gastrointestinal: Negative. Genitourinary: Positive for pelvic pain. Musculoskeletal: Negative. Skin: Negative. Neurological: Negative. All other systems reviewed and are negative. Hematological: Negative. Endocrine: Negative. Allergic/Immunologic: Negative. OBJECTIVE Objective: Physical Exam Constitutional: Appearance: Normal appearance. She is well-developed. Cardiovascular: Rate and Rhythm: Normal rate and regular rhythm. Pulmonary: Effort: Pulmonary effort is normal. Breath sounds: Normal breath sounds. Abdominal: General: Bowel sounds are normal. There is no distension. Palpations: Abdomen is soft. Tenderness: There is no abdominal tenderness. There is no guarding or rebound. Musculoskeletal: General: No swelling. Normal range of motion. Right lower leg: No edema. Left lower leg: No edema. Neurological: Mental Status: She is alert and oriented to person, place, and time. Skin: General: Skin is warm and dry. Psychiatric: Mood and Affect: Mood normal. Behavior: Behavior normal. Vitals and nursing note reviewed. Exam conducted with a hospitality associate present. Vitals: Estimated body mass index is 26.36 kg/m as calculated from the following: Height as of 03/22/24: 5' 3 . Weight as of this encounter: 148 lb 12.8 oz. BP: 112/76 No LMP recorded (lmp unknown). Patient has had a hysterectomy. ASSESSMENT & PLAN ICD-10-CM 1. Pre-op examination Z01.818 2. Pelvic pain in female R10.2 3. Complex cyst of left ovary N83.292 Pre Op: Patient is doing well but has complaints of pelvic pain due to a left complex ovarian cyst. I have discussed conservative management vs. surgical management with the patient in detail and patient desires surgical management at this time. Patient will undergo Da Chavez assisted Diagnostic Laparoscopy, possible ALEXANDRA, possible FOE, possible BSO on 08/30/2024. Surgical consents were signed, mmc was reviewed, and patient is to proceed to [facility] OR. Follow Up: Patient is to follow up between 1-2 weeks post operative to assess proper healing and recovery from procedure. Documented by Camelia Frey LPN on behalf of: Martín Torres DO documented in this encounter [facility] 07-18-2024 History of Presen t illness Narrative Images from the original note were not included. Physical Therapy Physical Therapy Treatment Visit Patient Name: Socorro Gallagher Today's Date: 07/18/2024 Reason: Thoracic spine/rib pain Visit number: 2; 14 total Supervised time: 40 minutes Total time: 55 minutes Precautions: as tolerated Subjective: Pain: doing very well. Report minimal symptoms at all since last visit. Slight rhomboid pain after work today. Overall progress: Improving well. Imaging: MRI shows diffuse broad based disc [...] x3 Special Test: - slump, SLR Treatment: Therapeutic Exercise: x40 minutes per flowsheet of flexibility, core stability, strength Modalities: x15 minutes prone IFC/heat to upper thoracic spine at start of session. Assessment: Progressing well. Discussed work posture and finding neutral positions at neck, lumbar spine. Plan Continue PT per POC. documented in this encounter [facility] 07-11-2024 History of Presen t illness Narrative Images from the original note were not included. Physical Therapy Physical Therapy Treatment Visit Patient Name: Socorro Gallagher Today's Date: 07/11/2024 Reason: Thoracic spine/rib pain Visit number: 1; 13 total Supervised time: 43 minutes Total time: 58 minutes Precautions: as tolerated Subjective: Pain: doing well overall; slight increase in abdominal and rhomboid symptoms with work today Overall progress: Improving. Able to swing golf club ~20 x without issue over the weekend. Imaging: MRI shows diffuse broad based disc [...] x3 Special Test: - slump, SLR Treatment: Therapeutic Exercise: x43 minutes per flowsheet of flexibility, core stability, strength Modalities: x15 minutes prone IFC/heat to upper thoracic spine at start of session. Assessment: Added oblique curl up, lateral plank for lateral/rotational plane strength and stability work today to assist in returning to golf. Plan Continue PT per POC. documented in this encounter [facility] 07-08-2024 History of Presen t illness Narrative Images from the original note were not included. Physical Therapy Physical Therapy Treatment Visit Patient Name: Socorro Gallagher Today's Date: 07/08/2024 Reason: Thoracic spine/rib pain Visit number: 12 Supervised time: 30 minutes Total time: 60 minutes Precautions: as tolerated Subjective: Pain: reports only symptom currently is slight pain in the left rhomboid area. Otherwise abdominals, ribs, low back feeling good. Overall progress: Improving. Able to go for long walk this weekend without issue. Imaging: MRI shows diffuse broad based disc [...] x3 Special Test: - slump, SLR Treatment: Therapeutic Exercise: x30 minutes per flowsheet of flexibility, core stability, strength Modalities: x15 minutes prone IFC/heat to upper thoracic spine at start of session. Assessment: Added HEP for upper thoracic stability exercise today. Plan Continue PT per POC. documented in this encounter [facility] 07-01-2024 History of Presen t illness Narrative Reason for Appointment: Patient ID: Socorro Gallagher is a 53 y.o. female who presents for follow up labs and ultrasound (Complex cyst) Patient presents today for Follow up appointment to discuss results. MEDICATIONS Current Outpatient Medications Medication Instructions aspirin 81 MG EC tablet Daily busPIRone (Buspar) 5 MG tablet 2 times daily estradiol (ESTRACE) 0.5 mg, Oral, Daily LORazepam (ATIVAN) 0.5 mg, Every 6 hours PRN pantoprazole (PROTONIX) 40 [...] SYSTEMS Review of Systems: Review of Systems All other systems reviewed and are negative. OBJECTIVE Objective: Physical Exam Constitutional: Appearance: Normal appearance. She is well-developed. Cardiovascular: Rate and Rhythm: Normal rate and regular rhythm. Pulmonary: Effort: Pulmonary effort is normal. Breath sounds: Normal breath sounds. Abdominal: General: Bowel sounds are normal. There is no distension. Palpations: Abdomen is soft. Tenderness: There is no abdominal tenderness. There is no guarding or rebound. Musculoskeletal: General: No swelling. Normal range of motion. Right lower leg: No edema. Left lower leg: No edema. Neurological: Mental Status: She is alert and oriented to person, place, and time. Skin: General: Skin is warm and dry. Psychiatric: Mood and Affect: Mood normal. Behavior: Behavior normal. Vitals and nursing note reviewed. Exam conducted with a hospitality associate present. Vitals: Estimated body mass index is 25.76 kg/m as calculated from the following: Height as of 03/22/24: 5' 3 . Weight as of this encounter: 145 lb 6.4 oz. BP: 120/70 No LMP recorded (lmp unknown). Patient has had a hysterectomy. ASSESSMENT & PLAN ICD-10-CM 1. Complex ovarian cyst N83.299 Patient presents today to discuss lab and ultrasound results. Discussed management with patient as far as conservative verses surgical management. Patient desires to proceed to OR for surgical management. Patient to discuss with Food Service Employee prior to leaving office today. Patient given order to have another ultrasound done prior to surgery in August 2024. Documented by Yola Hylton LPN on behalf of: Martín Torres DO documented in this encounter [facility] 07-01-2024 History of Presen t illness Narrative Images from the original note were not included. Physical Therapy Physical Therapy Treatment Visit Patient Name: Socorro Gallagher Today's Date: 07/01/2024 Reason: Thoracic spine/rib pain Visit number: 11 Supervised time: 20 minutes Total time: 35 minutes Precautions: as tolerated Subjective: Pain: felt great over the weekend. Medial scapular pain just enough to notice but not bad Overall progress: Improving. Imaging: MRI shows diffuse [...] Special Test: - slump, SLR Treatment: Manual: x20 minutes gr III PA mobs to upper/mid thoracic spine; MFR to left cervical paraspinals; left cervical upglides Therapeutic Exercise: held today due to prior commitment. Modalities: x15 minutes prone premod/heat to left upper thoracic paraspinals, and lower thoracic paraspinals. Assessment: Progressing well. Short session due to prior commitment. Continue per POC. Plan Continue PT per POC. documented in this encounter [facility] 06-27-2024 History of Presen t illness Narrative Images from the original note were not included. Physical Therapy Physical Therapy Treatment Visit Patient Name: Socorro Gallagher Today's Date: 06/27/2024 Reason: Thoracic spine/rib pain Visit number: 10 Supervised time: 40 minutes Total time: 55 minutes Precautions: as tolerated Subjective: Pain: Reports essentially pain free for several days and then felt the abdominal tightness a bit today at work. Overall progress: Improving. Imaging: MRI shows diffuse [...] Special Test: - slump, SLR Treatment: Manual: x14 minutes gr III PA mobs to upper/mid thoracic spine; MFR to left cervical paraspinals; left cervical upglides Therapeutic Exercise: x26 minutes per flowsheet of flexibility, ROM, core stability. Modalities: x15 minutes prone premod/heat to left upper thoracic paraspinals, and lower thoracic paraspinals. Assessment: Continues to progress core stabs with good tolerance. Plan Continue PT per POC. documented in this encounter [facility] 06-20-2024 History of Presen t illness Narrative Images from the original note were not included. Physical Therapy Physical Therapy Treatment Visit Patient Name: Socorro Gallagher Today's Date: 06/20/2024 Reason: Thoracic spine/rib pain Visit number: 10 Supervised time: 40 minutes Total time: 55 minutes Precautions: as tolerated Subjective: Pain: reports the best day I have had yesterday and most of today with minimal to no pain. Reports mild upper thoracic spine/scapular pain towards the end of her work day today. Overall progress: Improving. Imaging: MRI shows diffuse [...] Special Test: - slump, SLR Treatment: Manual: x14 minutes gr III PA mobs to upper/mid thoracic spine; MFR to left cervical paraspinals; left cervical upglides Therapeutic Exercise: x26 minutes per flowsheet of flexibility, ROM, core stability. Modalities: x15 minutes prone premod/heat to left upper thoracic paraspinals, and lower thoracic paraspinals. Assessment: Progression of deep abdominal stabilization, and anti rotational stability. Good tolerance to all. Assess response and continue as appropriate. Plan Continue PT per POC. documented in this encounter [facility] 06-18-2024 History of Presen t illness Narrative Images from the original note were not included. Physical Therapy Physical Therapy Treatment Visit Patient Name: Socorro Gallagher Today's Date: 06/19/2024 Reason: Thoracic spine/rib pain Visit number: 9 Supervised time: 40 minutes Total time: 55 minutes Precautions: as tolerated Subjective: Pain: ribs/abdominal tightness did well over over the weekend; the upper left medial scapula has been sore. Overall progress: Overall good if she keeps moving; symptoms then return to some degree with work/sitting still. Imaging: MRI shows diffuse broad based disc [...] Special Test: - slump, SLR Treatment: Manual: x14 minutes gr III PA mobs to upper/mid thoracic spine; MFR to left cervical paraspinals; left cervical upglides Therapeutic Exercise: x26 minutes per flowsheet of flexibility, ROM, core stability. Modalities: x15 minutes prone premod/heat to left upper thoracic paraspinals, and lower thoracic paraspinals. Assessment: Added cervical manual therapy, and HEP today. Monitor effect on symptoms of the upper back. Also discuss workplace standing desk ergonomics which she will trial. Plan Continue PT per POC. documented in this encounter [facility] 06-12-2024 History of Presen t illness Narrative [...] PT per POC. documented in this encounter [facility] 06-10-2024 History of Presen t illness [...] PT per POC. documented in this encounter [facility] 06-05-2024 History of Presen t illness [...] PT per POC. documented in this encounter [facility] 06-03-2024 History of Presen t illness [...] PT per POC. documented in this encounter [facility] 05-31-2024 History of Presen t illness [...] PT per POC. documented in this encounter [facility] 05-29-2024 History of Presen t illness [...] PT per POC. documented in this encounter [facility] 05-24-2024 History of Presen t illness [...] PT per POC. documented in this encounter [facility] 05-22-2024 History of Presen t illness [...] PT per POC. documented in this encounter [facility] 05-17-2024 History of Presen t illness [...] to see PCP and eventually saw supervisor [facility], gastroenterology. Cardiac heart cath was negative. [...] sign below. Date: documented in this encounter [facility] 05-14-2024 History of Presen t illness [...] been under the care of her painter barrel with MRI thoracic spine imaging completed in regards to thoracic radiculopathy. She states that she is also been seen by GI and underwent endoscopy where she was advised that she has GERD. Patient's Jose A is present with patient consent. States has seen GI and PM : states that she was diagnosed with GERD. 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 Nonsmoker Pain localized to area below [...] Physical Therapy: None Treating Physicians: Genevieve Feng CNP - PCP Dr Melgar - Plastic Surgery [...] residence. Reviewed following up with her painter barrel in regards to possible thoracic spine TALA. She was advised that if painter barrel does not perform this procedure that I [...] 2024 TIME:3:14 PM documented in this encounter [facility] 05-14-2024 Note HNO ID: [id number] Author: MARSHA LANDA APRN.CNP Service: ? Author [...] been under the care of her painter barrel with MRI thoracic spine imaging completed in regards to thoracic radiculopathy. She states that she is also been seen by GI and underwent endoscopy where she was advised that she has GERD. Patient's Jose A is present with patient consent. States has seen GI and PM : states that she was diagnosed with GERD. 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 Qiuy - Pain management History of Spine Injections/Surgery: [...] by mouth. pantoprazo (more content not included)... [facility] 05-13-2024 Telephone encounter Note Neuro SPINE CARE COORDINATION QUICK NOTE Called patient to let her know that we received the thoracic MRI images from 05/02 along with the report. They have been uploaded to her chart. [facility] 05-13-2024 Miscellaneous Notes Neuro SPINE CARE COORDINATION [...] yet and [facility] to the appointment with Marsha tomorrow. She verbalized understanding. I also sent an email to the [facility] to see if they have anything pending for the patient. Socorro is calling Marsha Landa APRN.CNP today to ask if you can see her MRI results from [facility], which are for tomorrow's appointment. They told her they were sent to the [facility] [facility], but when she tries to call she just gets disconnected. Please advise. Patient has been identified by name and birthdate. Duration of symptoms: N/A Person calling: self Call patient at: at home [phone] (home) [phone] (cell) Was an appointment scheduled: No Closing statement: Results or non-symptom based questions: Thank you for calling [facility], your call will be returned within the next business day. Genevieve Villafuerte documented in this encounter [facility] 05-13-2024 Telephone encounter Note Neuro SPINE CARE COORDINATION QUICK NOTE Spoke with patient and advised her that we don't have any Thoracic MRI images or report yet and to get a CD from [employer] to bring to the appointment with Marsha tomorrow. She verbalized understanding. I also sent an email to the [facility] to see if they have anything pending for the patient. [facility] 05-13-2024 Telephone encounter Note Socorro is calling Marsha Landa APRN.CNP today to ask if you can see her MRI results from [facility], which are for tomorrow's appointment. They told her they were sent to the [facility] [facility], but when she tries to call she just gets disconnected. Please advise. Patient has been identified by name and birthdate. Duration of symptoms: N/A Person calling: self Call patient at: at home [phone] (home) [phone] (cell) Was an appointment scheduled: No Closing statement: Results or non-symptom based questions: Thank you for calling [facility], your call will be returned within the next business day. 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 Exam conducted with a hospitality associate present. Vitals: Estimated body mass index is [...] of: SYBIL Ortiz documented in this encounter [facility] 05-02-2024 History and physical note Note Date/Time May 02, 2024 10:18am [facility] [address] [place] [address] Gastroenterology H&P Signed Patient: Yuri Gallagher MR#: [id number] : 1970 Acct:[id number] Age/Sex: 53 / F Adm Date: 4 Loc: Room: Type: [facility] Attending Dr: Lady Vásquez DO Copies to: [...] signed by Lady Vásquez DO> 05/02/24 1058 [facility] Work Phone: [phone] [facility] History of Present illness Narrative* Cheyanne Toribio [...] PATIENT PRESENTS WITH AN IMPLANTABLE OR ATTACHED EBD TEACHER: No RADIOLOGY DEPARTMENT: CT; Exam(s) Completed: Abdomen/Pelvis PERIPHERAL IV DATA: Site assessment: Clean,Dry and Intact, Site disposition Discontinued SIGNED BY: RT Lisa(R) April 25, 2024 2:16 PM [facility]24 NoteHNO ID: [id number] Author: CHEYANNE TORIBIO RN Service: Nursing Author [...] April 25, 2024 TIME: 12:53 [facility]10-17-2024 NoteHNO ID: [id number] Author: RAQUEL ROSAS RT(R) Service: ? Author [...] PATIENT PRESENTS WITH AN IMPLANTABLE OR ATTACHED EBD TEACHER: No RADIOLOGY DEPARTMENT: CT; Exam(s) Completed: Abdomen/Pelvis PERIPHERAL IV DATA: Site assessment: Clean,Dry and Intact, Site disposition Discontinued SIGNED BY: RT Lisa(R) April 25, 2024 2:16 [facility]10-02-2024 NoteHNO ID: [id number] Author: KYLE ZHU MD Service: ? Author [...] by others. Kyle Zhu MD Date: [facility] 10[facility] History of Present illness Narrative* Kyle [...] Date: April 10, 2024 [facility] NoteCardiology Clinic Note Chief Complaint: New patient [...] (TTE) complete Result Date: 03/18/2024 1 1 [facility] Heart Station [address] [place] [address] [phone] (fax) Echocardiogram-[facility] Name: YURI GALLAGHER Study Date: 03/18/2024 09:23 AM B/P: / HR: 68 bpm Date of : 1970 Location: [facility] Height: 63 in. Age: 53 year(s) Patient [...] IVSd, 2D 0.71 c (more content not included)...[facility]09-13-2024 History of Present illness Narrative* Blanka Aguirre, DO - 03/22/2024 9:45 AM EDT Images from the original note were not included. Socorro Gallagher is a 53 y.o. female presents with chief complaint of Chief Complaint Patient presents with Back Pain History of Present Illness The patient presents with complaints of lower back and rib pain. She has been experiencing this pain for approximately 4 weeks. Initially, she felt a slight tightness in her chest, which then progressed to a jabbing sensation under her left rib. Over time, the pain spread across her body, prompting her to seek medical attention. She also reports a feeling of a knot in her midback, which she has been managing with dry needling and exercises recommended by her daughter, a physical therapist. She recalls an incident at a [employer] camp where she sat in the bleachers for 3 hours in hot weather, which exacerbated her pain. She also reports tenderness in her back, which worsens with prolonged sitting or standing. She has been unable to walk due to the pain, which she believes may be related to over-golfing. An ultrasound of her kidneys, pancreas, and gallbladder was performed, but no x-rays were taken. She has a history of kidney stones during 25 years ago. She experienced a loss of appetite for a few days, which she attributes to anxiety. Her appetite has decreased due to worry, but she is still able to eat toast, yogurt, and peanut butter. She also experiences occasional acid reflux, which she manages with Tums. She reports no difficulty swallowing or heartburn. She was prescribed lorazepam for anxiety, which seemed to alleviate her symptoms temporarily. However, the pain returned after 2 weeks. Supplemental Information: She ended up having a stress test and had heart catheterization done. The stress test came back with something, and they had to check it out, which a lot of times could be false positives. New problem Location: bilateral lower back pain located mid back to ribs Duration: weeks ago. Onset: Pain started abruptly. Possible causes include: no known injury Describes symptoms: aching, sharp, and stabbing. Radiation of pain: ribs Changes of symptoms: variable. Prior history of related problems: No. Past and current treatments include: positional change. Imaging preformed includes: US, labs. Additional Comments: Pt has been dealing with pain for about 4 weeks, initially thought pain was heart related, but recently saw supervisor [employer] [employer] ([facility]) and was diagnosed with myocardial bridging and was prescribed Metoprolol. Stress test was done and heart cath (Monday). Moisture Machine Tender does not believe pain she is having is heart related. Pt states when she lays down on one side or the other to get the pain to go away or lay on her stomach. Sitting seems to make the pain worse. Denies urinary issues or constipation. Denies radiation to legs, US of abd was done a couple weeks ago- everything came back fine. Did not see any kidney stones. Labs ([facility]) were done as well. SUBJECTIVE: CURRENT MEDICATIONS: ALLERGIES/DISCONTINUE MEDICATIONS Current Outpatient Medications: aspirin 81 MG EC tablet, Daily, Disp: , Rfl: busPIRone (Buspar) 5 MG tablet, Take by mouth twice a day, Disp: , Rfl: estradiol (Estrace) 0.5 MG tablet, Take 1 tablet (0.5 mg) by mouth Daily, Disp: 90 tablet, Rfl: 3 LORazepam (Ativan) 0.5 MG tablet, Take 0.5 mg by mouth every 6 (six) hours if needed, Disp: , Rfl: Tretinoin (Altreno) 0.05 % lotion, Apply thin layer to face at bedtime, Disp: 45 g, Rfl: 11 metoprolol succinate XL (Toprol-XL) 25 MG 24 hr tablet, Take 25 mg by mouth in the morning., Disp: , Rfl: rosuvastatin (Crestor) 20 MG tablet, Take 20 mg by mouth in the morning., Disp: , Rfl: No Known Allergies There are no discontinued medications. PAST MEDICAL HISTORY: SURGICAL/SOCIAL/FAMILY HISTORY DEPRESSION SCREEN: Past Medical History: Diagnosis Date Kidney stone Myocardial bridge (CMS/HCC) Past Surgical History: Procedure Laterality Date SECTION, LOW TRANSVERSE x3 FOOT SURGERY Left plantar fasciitis surgery HYSTERECTOMY Depression: Not at risk (06/19/2023) [facility] PHQ-2 PHQ-2 score: 0 Social History Tobacco Use Smoking status: Never Substance Use Topics Alcohol use: Yes Comment: 1-2 drinks less than monthly in the past year, Caffeine intake: 1-2 cups per day coffee Drug use: Never Family History Problem Relation Name Age of Onset Heart disease Father Melanoma Neg Hx REVIEW OF SYMPTOMS: Review of Systems Constitutional: Negative for fatigue and fever. Gastrointestinal: Positive for abdominal pain. Negative for abdominal distention, nausea and vomiting. Musculoskeletal: Positive for arthralgias. Skin: Negative for rash. Neurological: Negative. Negative for weakness and numbness. Psychiatric/Behavioral: Negative. All other systems reviewed and are negative. Hematological: Does not bruise/bleed easily. OBJECTIVE: 03/22/2024 9:49 AM 03/05/2024 11:34 AM 03/16/2023 10:21 AM Vitals BMI 25.01 kg/m2 25.3 kg/m2 24.09 kg/m2 BSA (m2) 1.69 m2 1.7 m2 1.66 m2 Systolic 126 122 118 Diastolic 72 82 72 Heart Rate 81 SpO2 98 % Temp 97.5 F Height (in) 5' 3 5' 3 Weight (lb) 141.2 142.8 136 Visit Report Report Report Report GENERAL EXAM: Physical Exam Vitals and nursing note reviewed. Constitutional: General: She is not in acute distress. Appearance: Normal appearance. She is not ill-appearing. HENT: Head: Normocephalic and atraumatic. Nose: Nose normal. Eyes: General: No scleral icterus. Right eye: No discharge. Left eye: No discharge. Extraocular Movements: Extraocular movements intact. Musculoskeletal: Cervical back: Neck supple. Skin: General: Skin is warm and dry. Neurological: General: No focal deficit present. Mental Status: She is alert and oriented to person, place, and time. Mental status is at baseline. Psychiatric: Mood and Affect: Mood normal. Behavior: Behavior normal. Thought Content: Thought content normal. Judgment: Judgment normal. Physical Exam Abdominal examination reveals mild tenderness in the upper area. No guarding, no rebound. Abdomen is soft. Lumbar spine examination reveals full range of motion. No pain with rotation, flexion, or extension. No pain upon palpation of thoracic and lumbar spine or paraspinal muscles. ASSESSMENT AND PLAN: 1. Generalized abdominal pain The pain appears to be more related to abdominal pathology than musculoskeletal issues. Past blood work and ultrasound of the abdomen and pelvis were reviewed and found to be essentially normal. Protonix 40 mg once a day will be started, and she is instructed to take it daily. A CT scan of the abdomen and pelvis will be obtained. She is advised to continue monitoring her symptoms. The results of the CT scan will be communicated once available. All questions were answered. I spent a total of 50 minutes or more a date of the service which included preparing to see the patient, [id number] patient care including obtaining/reviewing history and performing appropriate medical examination, completing clinical documentation and coordination of care. 2. Gastroesophageal reflux disease, unspecified whether esophagitis present - pantoprazole (ProtoNix) 40 MG EC tablet; Take 1 tablet (40 mg) by mouth in the morning. Take before meals. Do not crush, chew, or split.. Dispense: 30 tablet; Refill: 1 BLANKA AGUIRRE D.O. This note was entered using [employer] 3D copilot. Grammatical and dictation errors maybe present in translation *I have reviewed and reconciled the history and medication list with the patient today* documented in this encounterWashington County [facility] [id number] NotePatient: Socorro Felix Elliott Procedure Information Date/Time: 03/18/24 1030 Procedure: Coronary angiography (Left) - PC APPROVED w possible PCI Location: [facility] COST REDUCTION ENGINEER 3 / [facility] VASCULAR [...] discussed with attending and fellow. [facility] History of Present illness Narrative* SYBIL Ortiz - 03/05/2024 11:00 AM EDT Reason for Appointment: Patient ID: Socorro Gallagher is a 53 y.o. female who presents for Follow-up Patient presents today for Acute Visit. MEDICATIONS Current Outpatient Medications Medication Instructions busPIRone (Buspar) 5 MG tablet Oral, 2 times daily estradiol (ESTRACE) 0.5 mg, Oral, Daily Tretinoin (Altreno) 0.05 % lotion Apply thin layer to face at bedtime ALLERGIES No Known Allergies PROBLEMS Active Ambulatory Problems Diagnosis Date Noted No Active Ambulatory Problems Resolved Ambulatory Problems Diagnosis Date Noted No Resolved Ambulatory Problems Past Medical History: Diagnosis Date Kidney stone HISTORY PAST MEDICAL HISTORY SOCIAL HISTORY Past Medical History: Diagnosis Date Kidney stone Social History Tobacco Use Smoking status: Never [...] Objective: Physical Exam Constitutional: Appearance: Normal appearance. She is normal weight. HENT: Head: Normocephalic. Cardiovascular: Rate and Rhythm: Normal rate. Pulses: Normal pulses. Pulmonary: Effort: Pulmonary effort is normal. Breath sounds: Normal breath sounds. Abdominal: Palpations: Abdomen is soft. Musculoskeletal: General: Normal range of motion. Neurological: General: No focal deficit present. Mental Status: She is alert and oriented to person, place, and time. Psychiatric: Mood and Affect: Mood normal. Behavior: Behavior normal. Thought Content: Thought content normal. Judgment: Judgment normal. Vitals and nursing note reviewed. Vitals: Estimated body mass index is 25.3 kg/m as calculated from the following: Height as of 03/16/23: 5' 3 . Weight as of this encounter: 142 lb 12.8 oz. BP: 122/82 No LMP recorded (lmp unknown). Patient has had a hysterectomy. ASSESSMENT & PLAN ICD-10-CM 1. Encounter to discuss test results Z71.2 2. Pelvic pain in female R10.2 US PELVIS-TRANSVAG IF INDICATED Patient seen today as instructed to follow up from US. PT was seen and evaluated for chest wall pain and upper rib cage pain. US was incidentally ordered and found to have a left ovarian cyst. Patient has had in past and ruptured. She explains pain she is having now is not like when previous cyst ruptured. Pt has had holter monitor and is scheduled for a heart cath. I believe pain she is having is musculoskeletal and not ovarian. We will repeat US for her cyst. Pt agrees and will proceed with cardiac cath as scheduled. She had not had any abdominal pain today or recently. Pt instructed go to er for worsening chest pain symptoms Documented by SYBIL Ortiz on behalf of: SYBIL Ortiz documented in this encounterWashington County Memorial [id number] NoteGal[facility] NoteCardiology Clinic Note Chief Complaint: New patient [...] hesitate to contact cardiolog (more content not included)...[facility]12-13-2023 History of Present illness Narrative* Marsha Landa APRN.[facility] - 06/21/2023 8:00 AM EST Images [...] under the care of pain management in [facility] where she recently underwent a right gluteal nerve block without improvement in symptoms. She states that at postinjection follow-up she was offered a piriformis injection but is reluctant to proceed. She reports that she recently had an EMG completed. EMG results were not available at time of today's appointment. 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 Nonsmoker Pain localized to right buttocks [...] prednisone Physical Therapy: Spring 2022 attended at [facility] , she states sessions were not [...] Normal Limits Logroll: Negative Tinel's test: Negative Selma's test: Negative Prone extension Negative Neuro Tests: [...] 2023 TIME: 7:51 AM documented in [facility]12-13-2023 NoteHNO ID: [id number] Author: Marsha Landa APRN.RUBEN Service: ? Author [...] under the care of pain management in [facility] where she recently underwent a right gluteal nerve block without improvement in symptoms. She states that at postinjection follow-up she was offered a piriformis injection but is reluctant to proceed. She reports that she recently had an EMG completed. EMG results were not available at time of today's appointment. 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 : Denies chapa (more content not included)...[facility] 03-20-2023 History of Present illness Narrative* Oscar [...] flanks. Oscar Melgar MD [facility] NoteCONSULTATION CONSULTATION DATE: 10/20/2022 TO: Agutsin Mortensen M.D. CHIEF COMPLAINT: Includes right leg [...] our patients to inform us about any mzob-fsq-wzzrons medications or herbal remedies/nutritional supplements/alternative remedies. 2. [...] treatment options with their primary care provider.[id number] NotePROCEDURE: XR ANKLE RT MIN 3 VIEWS, [...] authenticated by: CHRISTINA ROBLERO Date: 2022-10-11 11:33[facility] [id number] NotePROCEDURE: XR ANKLE RT MIN 3 VIEWS, [...] authenticated by: CHRISTINA ROBLERO Date: 2022-10-11 11:33[facility] [id number] Evaluation note* Diagnosis Onset Date Resolution Status Anxiety January 06, 2015 acute Anxiety January 06, 2015 acute Palpitations acute Screening for lipid disorders acute Screening for metabolic disorder acute Screening, deficiency anemia, iron acute Wellness examination [facility] Work Phone: evalubjfcb note* Diagnosis Encounter for cosmetic surgery- Primary Other plastic surgery for unacceptable cosmetic appearance documented [facility] noteNo assessment information availableThe [facility]: [facility]* Diagnosis Right leg pain- Primary Pain in limb Numbness and tingling of right lower extremity Piriformis syndrome, right [facility]* Diagnosis Onset Date Resolution Status Chest tightness acute Dizziness acute Family history of heart dise ase in male family member before age 55 acute Palpitations acute [facility] Work Phone: evaluation note* Diagnosis Onset Date Resolution Status Chest tightness acute Dizziness acute Family history of heart dise ase in male family member before age 55 acute Palpitations acute Abdominal pain acute Bloating acute [facility] Work Phone: evaluation note* Diagnosis Onset Date Resolution Status Chest tightness acute Dizziness acute Family history of heart dise ase in male family member before age 55 acute Palpitations acute Abdominal pain acute Bloating acute Anxiety January 06, 2015 acute Chest wall pain acute Myocardial bridge acute UTI (urinary tract infection) acute [facility] Work Phone: evaluation note* Diagnosis Abdominal pain, unspecified abdominal location- Primary [facility]* Diagnosis Abdominal pain, unspecified abdominal location [facility]* Diagnosis Onset Date Resolution Status Chest tightness acute Dizziness acute Family history of heart dise ase in male family member before age 55 acute Palpitations acute Abdominal pain acute Bloating acute Anxiety January 06, 2015 acute Chest wall pain acute Myocardial bridge acute UTI (urinary tract infection) acute Upper abdominal pain acute [facility] Work Phone: evaluation note* Diagnosis Well woman exam with routine gynecological exam Routine gynecological examination Other screening mammogram Surgical menopause [facility] Diagnosis Thoracic spondylosis- Primary Thoracic spondylosis without myelopathy 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 Displacement of thoracic intervertebral disc without myelopathy Epigastric pain Abdominal pain, epigastric [facility]* Diagnosis Thoracic spine pain- Primary Pain in thoracic spine Thoracic spondylosis [facility] Diagnosis Thoracic spine pain- Primary Pain in thoracic spine Thoracic spondylosis [facility]* Diagnosis Thoracic spine pain- Primary Pain in thoracic spine Thoracic spondylosis documented in this encounter [facility]* Diagnosis Thoracic spine pain- Primary Pain in thoracic spine Thoracic spondylosis documented in this encounter [facility]* Diagnosis Thoracic spine pain- Primary Pain in thoracic spine Thoracic spondylosis documented in this encounter [facility]* Diagnosis Generalized abdominal pain- Primary Abdominal pain, generalized Gastroesophageal reflux disease, unspecified whether esophagitis present documented in this encounter [facility]* Diagnosis Encounter to discuss test results Other specified counseling Pelvic pain in female Unspecified symptom associated with female genital organs documented in this encounter [facility]* Diagnosis Complex ovarian cyst Pelvic pain in female Unspecified symptom associated with female genital organs Encounter to discuss test results Other specified counseling documented in this encounter [facility]* Diagnosis Thoracic spine pain- Primary Pain in thoracic spine Thoracic spondylosis documented in this encounter [facility]* Diagnosis Thoracic spine pain- Primary Pain in thoracic spine Thoracic spondylosis documented in this encounter [facility]* Diagnosis Pre-op examination Pelvic pain in female Unspecified symptom associated with female genital organs Complex cyst of left ovary [facility] N[facility]ative* Rehabilitation - Outpatient (Routine) - Authorized Specialty Diagnoses / Procedures Referred By Tyson t Referred To Contact Physical Therapy Diagnoses Back pain Procedures [place] PHYSICAL THERAPY EVALUATION LOW COMPLEX 20 MINS Blanka Mercer, PT [address] [place] [address] Phone: tel: fax: Blanka Mercer, PT [address] [place] [address] Phone: tel: fax: Referral ID Status Reason Start Date Expiration Date Visits Requested Visits Authorized [id number] Authorized Consult and Treat 05/15/2024 11/11/2024 40 40 [facility] for visit Narrative* Rehabilitation - Outpatient (Routine) - Authorized Specialty Diagnoses / Procedures Referred By Contac t Referred To Contact Physical Therapy Diagnoses Back pain Procedures [place] PHYSICAL THERAPY EVALUATION LOW COMPLEX 20 MINS Gundlach, Blanka D, PT [address] [place] [address] Phone: tel: fax: Blanka Mercer, PT [address] [place] [address] Phone: tel: fax: Referral ID Status Reason Start Date Expiration Date Visits Requested Visits Authorized [id number] Authorized Consult and Treat 05/15/2024 07/09/2024 40 40 [facility] for visit Narrative* Rehabilitation - Outpatient (Routine) - Authorized Specialty Diagnoses / Procedures Referred By Contalex t Referred To Contact Physical Therapy Diagnoses Low back pain, unspecified Procedures [place] THERAPEUTIC PX 1/> AREAS EACH 15 MIN EXERCISES Marsha Landa MD [address] [place] [address] Phone: tel: fax: Blanka Mercer, PT [address] [place] [address] Referral ID Status Reason Start Date Expiration Date V isits Requested Visits Authorized [id number] Authorized 07/09/2024 01/05/2025 40 40 [facility] N[facility]* Rehabilitation - Outpatient (Routine) - Authorized Specialty Diagnoses / Procedures Referred By Tyson t Referred To Contact Physical Therapy Diagnoses Low back pain, unspecified Procedures [place] THERAPEUTIC PX 1/> AREAS EACH 15 MIN EXERCISES Marsha Landa MD [address] [place] [address] Phone: tel: fax: Blanka Mercer, PT [address] [place] [address] Referral ID Status Reason Start Date Expiration Date V isits Requested Visits Authorized [id number] Authorized 07/09/2024 07/09/2025 40 40 [facility] Healthcare Summary Purpose Family History No Family [...] & PELVIS W/CONTRAST Kyle Zhu MD [address] [place] [address] Ct [facility] [place] [address] Referral ID Status Reason Start Date Expiration Date Visits Requested Visits Authorized [id number] Authorized Auto-Generat ed Referral 04/10/2024 05/10/2025 1 1 Referral ID Status Reason Start Date Expiration Date V isits Requested Visits Authorized [id number] Closed Auto-Generate d Referral 04/10/2024 05/10/2025 1 1 Specialty Diagnoses / Procedures Referred By Contac t Referred To Contact [facility] Diagnoses Generalized abdominal pain Thoracic spondylosis 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 Procedures CONSULT TO PHYSICAL THERAPY PHYSICAL THERAPY EVALUATION HIGH COMPLEX 45 MINS Marsha Landa, FOURDRINIER WIRE WEAVER.SEAM RUBBING MACHINE OPERATOR [address] [place] [address] [facility] [place] [address] Referral ID Status Reason Start Date Expiration Date Visits Requested Visits Authorized [id number] Pending Review Auto-Generat ed Referral 05/14/2024 05/14/2025 1 1 Specialty Diagnoses / Procedures Referred By Contac t Referred To Contact Radiology Diagnoses Generalized abdominal pain Procedures CT abdomen pelvis w and wo IV contrast Blanka Aguirre, DO [address] [place] [address] Referral ID Status Reason Start Date Expiration Date V isits Requested Visits Authorized [id number] Pending Review 03/24/2024 09/20/2024 1 1 Additional Source Comments INFORMATION SOURCE (unrecogn ized section and content) DATE CREATED AUTHOR 09/08/2020 Italo Vahe [facility] DATE CREATED AUTHOR AUTHOR'S ORGANIZ ATION 10/27/2022 [facility] DATE CREATED AUTHOR AUTHOR'S ORGANIZ ATION 05/16/2024 [facility] DATE CREATED AUTHOR AUTHOR'S ORGANIZ ATION 05/17/2024 [facility] DATE CREATED AUTHOR AUTHOR'S ORGANIZ ATION 05/27/2024 [facility] DATE CREATED AUTHOR AUTHOR'S ORGANIZ ATION 08/08/2024 [facility] EPIC Source Comments (unrecognize d section and content) In the event this informatio n is protected by the Federal Confidentiality of Alcohol and Drug Abuse Patient Records regulations: The Federal rules restrict any use of the information to criminally investigate or prosecute any alcohol or drug abuse patient.[facility] HospitalIn the event this information is protected by the Federal Confidentiality of Alcohol and Drug Abuse Patient Records regulations: The Federal rules restrict any use of the information to criminally investigate or prosecute any alcohol or drug abuse patient.[facility] HospitalIn the event this information is protected by the Federal Confidentiality of Alcohol and Drug Abuse Patient Records regulations: The Federal rules restrict any use of the information to criminally investigate or prosecute any alcohol or drug abuse patient.[facility] HospitalIn the event this information is protected by the Federal Confidentiality of Alcohol and Drug Abuse Patient Records regulations: The Federal rules restrict any use of the information to criminally investigate or prosecute any alcohol or drug abuse patient.[facility] HospitalIn the event this information is protected by the Federal Confidentiality of Alcohol and Drug Abuse Patient Records regulations: The Federal rules restrict any use of the information to criminally investigate or prosecute any alcohol or drug abuse patient.[facility] HospitalIn the event this information is protected by the Federal Confidentiality of Alcohol and Drug Abuse Patient Records regulations: The Federal rules restrict any use of the information to criminally investigate or prosecute any alcohol or drug abuse patient.[facility] HospitalIn the event this information is protected by the Federal Confidentiality of Alcohol and Drug Abuse Patient Records regulations: The Federal rules restrict any use of the information to criminally investigate or prosecute any alcohol or drug abuse patient.[facility] HospitalIn the event this information is protected by the Federal Confidentiality of Alcohol and Drug Abuse Patient Records regulations: The Federal rules restrict any use of the information to criminally investigate or prosecute any alcohol or drug abuse patient.[facility] Reason for Visit (unrecogniz ed section and content) Reason Comments Radiology CT Specialty Diagnoses / Procedures Referred By Contac t Referred To Contact CT IMAGING Diagnoses Abdominal pain, unspecified abdominal location Procedures CT ENTEROGRAPHY W IVCON CT ABD & PELVIS W/CONTRAST Kyle Zhu MD [address] [place] [address] Ct Imaging [facility]95 Referral ID Status Reason Start Date Expiration Date V isits Requested Visits Authorized [id number] Closed Auto-Generate d Referral 04/10/2024 05/10/2025 1 1 Reason Comments Consult Reason Comments New Patient Low Back Pain Reason Comments New Patient Per CT small bowel p olyp Reason Comments Gynecologic Exam Reason Comments Patient Question Reason Comments New Patient Thoracic back pain Reason Comments Back Pain Reason Comments Follow-up Reason Comments follow up labs and ultrasound Complex cy st Reason Comments Pre-op Visit Care Teams (unrecognized sec tion and content) [...] End: October 12, 2023 Genevieve Feng APRN [employer]ING [employer]-C Attending Provider Act star Start: October 12, 2023 End: October 12, 2023 Team Status: Inactive Member Role Status Dates Genevieve Feng APRN [employer] Primary Care Provider, Attending Provider Active Start: February 19, 2024 End: February 19, 2024 Team Status: Inactive Member Role Status Dates Genevieve Feng APRN [employer] Primary Care Provider, Attending Provider Active Start: February 26, 2024 End: February 26, 2024 Team Status: Active Member Role Status Dates Genevieve Feng APRN [employer]-C Primary Care Provider Active Start: March 132023 Seda Loza MD Attending Provider Active Start: March 13, 2024 Team Status: Inactive Member Role Status Dates Genevieve Feng APRN [employer] Primary Care Provider, Attending Provider Active Start: March 21, 2024 End: March 21, 2024 Team Status: Active Member Role Status Dates Genevieve Feng APRN [employer] Primary Care Provider Active Start: March 04, 2024 Sandeep Mcclelland DO Attending Provider Active Sta rt: March 04, 2024 Team Status: Inactive Member Role Status Dates Genevieve Feng APRN [employer] Primary Care Provider, Attending Provider Active Start: April 02, 2024 End: April 02, 2024 Team Status: Inactive Member Role Status Dates Genevieve Feng APRN [employer]-C Attending Provider Act star Start: April 02, 2024 End: April 02, 2024 Team Status: Inactive Member Role Status Dates Genevieve Feng APRN [employer]-C Attending Provider Active Start: March End: April 02, 2024 PHYSICIAN NO FAMILY Primary Care Provider Active Start: April 02, 2024 End: April 02, 2024 Team Status: Inactive Member Role Status Dates Lady Vásquez DO Attending Provider Active St art: May 01, 2024 End: May 01, 2024 Genevieve Feng APRN [employer]-C Primary Care Provider Active Start: April End: May 01, 2024 Team Status: Active Member Role Status Dates Genevieve Feng APRN [employer] Primary Care Provider Active Start: May 02, 2024 Jose Guadalupe Costa MD Attending Provider Acti ve Start: May 02, 2024 Team Status: Inactive Member Role Status Dates Genevieve Feng APRN [employer] Primary Care Provider Active Start: April End: May 02, 2024 Lady Vásquez DO Attending Provider Active St art: May 02, 2024 End: May 02, 2024 Team Status: Active Member Role Status Dates Genevieve Feng APRN [employer] Primary Care Provider Active Start: April Lady Vásquez DO Attending Provider, Other Provider Active Start: May 02, 2024 Team Status: Inactive Member Role Status Dates Genevieve Feng APRN [employer] Primary Care Provider Active Start: May 02, 2024 End: May 02, 2024 Jose Guadalupe Costa MD Attending Provider Acti ve Start: May 02, 2024 End: May 02, 2024 Reverberatory Furnace Supervisor Relationship Specialty Start Date End Date Agustin Mortensen MD [address] [facility] [place] [address] PCP - General Family Medicine 03/16/23 Reverberatory Furnace Supervisor Relationship Specialty Start Date End Date Agustin Mortensen MD [address] [place] [address] PCP - General Family Medicine 03/16/23 Reverberatory Furnace Supervisor Relationship Specialty Start Date End Date Agustin Mortensen MD [address] [facility] [place] [address] PCP - General Family Medicine 03/16/23 Reverberatory Furnace Supervisor Relationship Specialty Start Date End Date Agustin Mortensen MD [address] [facility] [place] [address] PCP - General Family Medicine 03/16/23 Blanka Aguirre DO [address] [place] [address] PCP - Medical [place] [employer] 07/10/16 07/09/99 Reverberatory Furnace Supervisor Relationship Specialty Start Date End Date Agustin Mortensen MD [address] [facility] [place] [address] PCP - General Family Medicine 03/16/23 Blanka Aguirre DO [address] [place] [address] PCP - Medical [place] [employer] 07/10/16 07/09/99 Reverberatory Furnace Supervisor Relationship Specialty Start Date End Date Agustin Mortensen MD [address] [place] [address] PCP - General Family Medicine 03/16/23 Blanka Aguirre DO [address] [place] [address] PCP - Medical [place] [employer] 07/10/16 07/09/99 Reverberatory Furnace Supervisor Relationship Specialty Start Date End Date Agustin Mortensen MD [address] [place] [address] PCP - General Family Medicine 03/16/23 Blanka Aguirre DO [address] [place] [address] PCP - Medical [place] [employer] 07/10/16 07/09/99 Reverberatory Furnace Supervisor Relationship Specialty Start Date End Date Agustin Mortensen MD [address] [place] [address] PCP - General Family Medicine 03/16/23 Blanka Aguirre DO [address] [place] [address] PCP - Medical [place] [employer] 07/10/16 07/09/99 Reverberatory Furnace Supervisor Relationship Specialty Start Date End Date Agustin Mortensen MD [address] [facility] [place] [address] PCP - General Family Medicine 03/16/23 Blanka Aguirre DO [address] [place] [address] PCP - Medical [place] [employer] 07/10/16 07/09/99 Reverberatory Furnace Supervisor Relationship Specialty Start Date End Date Agustin Mortensen MD [address] [facility] [place] [address] PCP - General Family Medicine 03/16/23 Blanka Aguirre DO [address] [place] [address] PCP - Medical [place] [employer] 07/10/16 07/09/99 Reverberatory Furnace Supervisor Relationship Specialty Start Date End Date Agustin Mortensen MD [address] [facility] [place] [phone] PCP - General Family Medicine 03/16/23 Blanka Aguirre DO [address] [place] [address] PCP - Medical [place] [employer] 07/10/16 07/09/99 Reverberatory Furnace Supervisor Relationship Specialty Start Date End Date Agustin Mortensen MD [address] [facility] [place] [address] PCP - General Family Medicine 03/16/23 Blanka Aguirre DO [address] [place] [address] PCP - Medical [place] [employer] 07/10/16 07/09/99 Reverberatory Furnace Supervisor Relationship Specialty Start Date End Date Agustin Mortensen MD [address] [facility] [place] [address] PCP - General Family Medicine 03/16/23 Reverberatory Furnace Supervisor Relationship Specialty Start Date End Date Agustin Mortensen MD [address] [facility] [place] [address] PCP - General Family Medicine 03/16/23 Reverberatory Furnace Supervisor Relationship Specialty Start Date End Date Agustin Mortensen MD [address] [facility] [place] [address] PCP - General Family Medicine 03/16/23 Reverberatory Furnace Supervisor Relationship Specialty Start Date End Date Agustin Mortensen MD [address] [facility] [place] [address] PCP - General Family Medicine 03/16/23 Blanka Aguirre DO [address] [place] [address] PCP - Medical [place] [employer] 07/10/16 07/09/99 Reverberatory Furnace Supervisor Relationship Specialty Start Date End Date Agustin Mortensen MD [address] [facility] [place] [address] PCP - General Family Medicine 03/16/23 Blanka Aguirre DO [address] [place] [address] PCP - Medical [place] [employer] 07/10/16 07/09/99 Reverberatory Furnace Supervisor Relationship Specialty Start Date End Date Agustin Mortensen MD [address] [facility] [place] [address] PCP - General Family Medicine 03/16/23 Blanka Aguirre DO [address] [place] [address] PCP - Medical [place] [employer] 07/10/16 07/09/99 Reverberatory Furnace Supervisor Relationship Specialty Start Date End Date Agustin Mortensen MD [address] [facility] [place] [address] PCP - General Family Medicine 03/16/23 Blanka Aguirre DO [address] [facility] [address] [place] [address] PCP - Medical [place] [employer] 07/10/16 07/09/99 Reverberatory Furnace Supervisor Relationship Specialty Start Date End Date Agustin Mortensen MD [address] [facility] [place] [address] PCP - General Family Medicine 03/16/23 Blanka Aguirre DO [address] [place] [address] PCP - Medical [place] [employer] 07/10/16 07/09/99 Reverberatory Furnace Supervisor Relationship Specialty Start Date End Date Agustin Mortensen MD [address] [facility] [place] [address] PCP - General Family Medicine 03/16/23 Blanka Aguirre DO [address] [facility] [address] [place] [address] PCP - Medical [place] Commercial 07/10/16 07/09/99 Goals (unrecognized section and [...] BE BASED ON THE PRIMARY CLINICAL RECORDS. [facility]. provides no warranty or guarantee of the accuracy or completeness of information in this document.
--- NOTE | 2024-08-15 14:53 | XR_ITS ---
The [address] [address] Patient Name: YURI SMITH MRN: [id number] date: 1970 Sex: F Assigned Patient Location: [facility] Current Patient Location: [facility] Accession/Order Number: [id number] Exam Date: 08/15/2024 14:45 Report Date: 08/15/2024 15:28 At the request of: ROSETTA CHEN Procedure: XR chest 2V PROCEDURE: XR chest 2V DATE: 08/15/2024 2:45 PM EST COMPARISONS: None. CLINICAL INDICATION: 53 years Female Preop exam FINDINGS: The cardiomediastinal silhouette and pulmonary vasculature are within normal limits. The lungs are clear. There is no evidence of pleural effusion or pneumothorax. XR/XR chest 2V IMPRESSION: Chest radiograph is within normal limits. Electronically authenticated by: SHANE VOSS Date: 08/15/2024 15:28
[2024-08-15 15:10] LABS: Anion Gap 11.3; BUN Creatinine Ratio 18.1; Calcium 8.8 mg/dL (8.5-10.1); Carbon Dioxide 32.8 mmol/L (21.0-32.0); Chloride 102 mmol/L (98-107); Estimated GFR (African America >60 (>=60 mL/min/1.73m^2); Estimated GFR (Non-African Ame >60 (>=60 mL/min/1.73m^2); Glucose 91 mg/dL (74-106); Potassium 4.1 mmol/L (3.5-5.1); Sodium 142 mmol/L (136-145)
[2024-08-15 15:12] LABS: Basophils Percent Auto 0.6 % (0.2-2.0); Eosinophils Absolute Auto 0.1 10^3/uL (0.0-0.7); Hematocrit 39.4 % (36.0-48.0); Hemoglobin 13.2 g/dL (12.0-16.0); Immature Granulocytes Abs Auto 0.01 10^3/uL (0.00-0.03); Immature Granulocytes Pct Auto 0.1 % (0.0-0.5); Lymphocytes Absolute Auto 1.8 10^3/uL (1.2-3.8); Lymphocytes Percent Auto 25.5 % (20.5-60.0); Mean Corpuscular HGB Conc 33.5 g/dL (29.9-35.2); Mean Corpuscular Hemoglobin 31.1 pg (26.7-34.0); Mean Corpuscular Volume 92.7 fL (81.0-99.0); Monocytes Absolute Auto 0.5 10^3/uL (0.3-0.8); Monocytes Percent Auto 6.8 % (1.7-12.0); Neutrophils Absolute Auto 4.7 10^3/uL (1.4-6.5); Platelet Count 271 10^3/uL (150-450); Red Blood Count 4.25 10^6/uL (4.20-5.40); Red Cell Distribution Width 12.1 % (11.0-15.0); White Blood Count 7.1 10^3/uL (4.0-11.0)
[2024-08-15 15:21] LABS: Partial Thromboplastin Time 30.2 sec (22.3-36.2); Prothrombin Time 10.6 sec (9.0-11.6)
== END 2024-08-15 13:29 | disposition home or self-care (01) ==
PROVIDERS: PCP Nurse Practitioner Family; Visit Provider Obstetrics & Gynecology
DX: Z01.810 Encounter for preprocedural cardiovascular examination (principal); Z01.812 Encounter for preprocedural laboratory examination; N83.292 Other ovarian cyst, left side; R10.2 Pelvic and perineal pain
CPT/HCPCS: 71046; 80048; 85025; 85610; 85730; 93005

== ENCOUNTER 2024-08-30 06:27 | Day surgery (SDC) | payer OTHER, SELFPAY ==
[2024-08-15 14:18] VITALS: BP 127/82; PULSE 75; TEMP 36.3; O2SAT 98; BMI 26.0
[2024-08-30] VITALS (11 sets, daily range): BP systolic 113–141; BP diastolic 78–88; PULSE 72–88; TEMP 36.1–36.6; O2SAT 96–100; BMI 25.7
--- OUTSIDE RECORDS SUMMARY | 2024-08-30 06:30 | XMS_ITS | CCD ---
Author Organization [facility] Care Team Providers Care Aircraft Design Engineer Name Role Phone DR AGUSTIN MORTENSEN Primary Care Unavailable LAKSHMIPATHY ., NARENDRANATH Admitting Mariella vailable LAKSHMIPATHY ., NARENDRANATH Consulting Mariella vailable LAKSHMISHMIPATHY ., CRYSTALATH Attending Mariella brookilable LORRI BERRY Admitting Unavailable LORRI BERRY Attending Unavailable DR CHRISTINA ROBLERO Consulting Unavailable DR AGUSTIN MORTENSEN Primary Care Unavailable LORRI BERRY Consulting Unavailable Unavailable Primary Care Provider UnavailMD Agustin Ramirez Primary Care Provider MD Jose Guadalupe Costa Attending Provider Unavailable DAGMAR Feng Attending Provider [phone] Unavailable Primary Care Provider Unavailfide garcia NO FAMILY, PHYSICIAN Primary Care Provider Unava ilable DAGMAR Feng Primary Care Provider MD Jose Guadalupe Costa Attending Provider Unavailable DO Lady Vásquez Attending Provider Agustin Mortensen MD Primary Care Provider Lashner, Kyle Referring Unavailable Lasmarcuser, Kyle Attending Unavailable MARSHA LANDA Attending Unavailable LANDAMARSHA Attending Unavailable Lashner, Kyle Referring Unavailable Lashner, Kyle Referring Unavailable ALGHOTHANI, MOHAMAD Attending Unavailable ALGHOTHANI, MOHAMAD Referring Unavailable ALGHOTHANI, MOHAMAD Attending Unavailable ALGHOTHANI, MOHAMAD Admitting Unavailable ALGMARILYNNTHANI, MOHAMAD Attending Unavailable Blanka Aguirre DO Unavailable MARTÍN TORRES Attending Unavailable BETHANY CHANG Attending Unavailable LINDA CARRILLO Referring Unavailable WENGSWETA GALO Attending Unavailable LANDAMARSHA Referring Unavailable GUNDLACH, BLANKA Tiwari Attending Unavailable LANDAMARSHA Referring Unavailable TONI LINDA Attending Unavailable TONI LINDA Referring Unavailable PETZNICKBLANKA Attending Unavailable PETZNICKBLANKA Referring Unavailable TONI LINDA Attending Unavailable GUNDLACH, BLANKA D Attending [...] Attending Unavailable GUNDLACH, BLANKA Tiwari Referring Unavailable BRIANPALOMOY Attending Unavailable GUNDLACH, BLANKA Tiwari Attending Unavailable GUNDLACH, BLANKA Tiwari Referring Unavailable GUNDLACH, BLANKA Tiwari Attending Unavailable GUNDLACH, BLANKA Tiwari Referring Unavailable GUNDLACH, BLANKA Tiwari Attending Unavailable LANDAMARSHA Referring Unavailable GUNDLACH, BLANKA Tiwari Attending Unavailable LANDA MARSHA Referring Unavailable SWETA ALANIZ Attending Unavailable LANDA MARSHA Referring Unavailable Rohrbacher, Genevieve Primary Care Unavailable Lady Vásquez Attending Unavailable Ly Lady L Admitting Unavailable Rohrbacher, Genevieve Primary Care Unavailable Lakshmipathy, Narendranath Attending Unava ilable Lakshmipathy, Narendranath Admitting Unava ilable Rohrbacher, Genevieve Admitting Unavailable NO FAMILY, PHYSICIAN Primary Care Unavailable Rohrbacher, Genevieve Attending Unavailable Medications Current Medications Medication Drug [...] tablet 3 09/28/2023 09/27/2024 Active estrogens, conjugated (penitentiary) 0.625 mg/ml vaginal cream (3 sources) Estrogen [...] sources) Proton Pump Inhibitor Start: 03-22-20 End: 02-05-20 take 1 tablet by mouth before mealtime pantoprazole (ProtoNix) 40 MG EC tablet Indications: Gastroesophageal reflux disease, unspecified whether esophagitis present Take 1 tablet (40 mg) by mouth in the morning. Take before meals. 90 tablet 1 08/08/2024 02/04/2025 Active predniSONE 50 mg oral tablet (1 [...] Date Documented Da te Episodic/Chronic Anxiety disorders (18 sources) Anxiety; Translations: [Anxiety [...] myelopathy or radiculopathy, thoracic region] 05-14-2024 Chronic Past or Other Problems Problem Classification Problem Date Documented Da te Episodic/Chronic Abdominal pain (20 sources) Abdominal pain; Translations: [Unspecified abdominal pain] Onset: 04-10-2024 02-26-2024 Episodic Administrative/social admission (2 sources) Follow-up status; Translations: [Person consulting for explanation of examination or test findings] 03-05-2024 Episodic Spondylosis; intervertebral disc disorders; other back problems (20 sources) Radiculopathy, lumbar region; Translations: [Pain in thoracic spine] Onset: 10-26-2022 05-17-2024 Episodic Urinary tract infections (13 sources) Urinary tract infectious disease; Translations: [Urinary tract infection, site not specified] Onset: 04-02-2024 04-02-2024 Episodic Results Test Name Value Interpretation Reference Range Facility ALL CBC WITH AUTO DIFFon BASOPHILS ABSOLUTE AUTO 0 [facility] Basophils/100 WBC (Bld) 0.6 % 0.2 - 2.0 % [facility] Eosinophils/100 WBC (Bld) 1 % 0.9 - 7.0 % [facility] Erythrocyte distribution width (RBC) [Ratio] 12.1 % 11.0 - 15.0 % [facility] Hematocrit (Bld) [Volume fraction] 39.4 % 36.0 - 48.0 % [facility] Hemoglobin (Bld) [Mass/Vol] 13.2 g/dL 12.0 - 16.0 g/dL [facility] IMMATURE GRANULOCYTES ABS AUTO 0.01 [facility] Immature granulocytes/100 WBC (Bld) 0.1 % 0.0 - 0.5 % [facility] LYMPHOCYTES ABSOLUTE AUTO 1.8 [facility] Lymphocytes/100 WBC (Bld) 25.5 % 20 .5 - 60.0 % [facility] MCH (RBC) [Entitic mass] 31.1 pg 26. 7 - 34.0 pg [facility] MCHC (RBC) [Mass/Vol] 33.5 g/dL 29.9 - 35.2 g/dL [facility] MCV (RBC) [Entitic vol] 92.7 fL 81.0 - 99.0 fL [facility] MONOCYTES ABSOLUTE AUTO 0.5 [facility] Monocytes/100 WBC (Bld) 6.8 % 1.7 - 12.0 % [facility] NEUTROPHILS ABSOLUTE AUTO 4.7 [facility] Neutrophils/100 WBC (Bld) 66 % 43 .0 - 75.0 % [facility] Platelet mean volume (Bld) [Entitic vol] 10 fL 9.5 - 13.5 fL [facility]H EO # 0.1 [facility] PLT 271 [facility] RBC 4.25 [facility] WBC 7.1 [facility] ECG 12-LEADon 08-15-[address] [address] Electrocardiograph Report Signed Patient: YURI GALLAGHER MR#: [id number] : 1970 Acct:[id number] Age/Sex: 53 / F ADM Date: 08/15/24 Loc: [facility] Attending Dr: Martín Torres D.O. Ordering Physician: Martín Torres D.O. Date of Service: 08/15/24 Procedure(s): ECG 12 lead Accession Number(s): [id number] cc: [facility] Test Date: 2024-08-15 Pat Name: YURI GALLAGHER Department: Room: - Gender: Female Relief Master: : 1970 Requested By: MARTÍN TORRES Order Number: [id number] Reading MD: SANDEEP OBRIEN Measurements Intervals [place] Rate: 59 P: 53 MO: 155 QRS: 22 QRSD: 99 T: 31 QT: 419 QTc: 418 Interpretive Statements SINUS BRADYCARDIA POSSIBLE RIGHT VENTRICULAR CONDUCTION DELAY [RSR (QR) IN V1/V2] NONSPECIFIC T-WAVE ABNORMALITY No previous ECG available for comparison Electronically Signed On 08-15-2024 20:18:33 EST by SANDEEP OBRIEN Dictated By: Sandeep Obrien D.O. Signed By: 08/15/242018 DD/ 144 TD/TT: Manager Play: [facility] Radiology, Radiologist, MD - 08/15/2024 [place] [address] Electrocardiograph Report Signed Patient: YURI GALLAGHER MR#: [id number] : 1970 Acct:[id number] Age/Sex: 53 / F ADM Date: 08/15/24 Loc: [facility] Attending Dr: Martín Torres D.O. Ordering Physician: Martín Torres D.O. Date of Service: 08/15/24 Procedure(s): ECG 12 lead Accession Number(s): [id number] cc: [facility] Test Date: 2024-08-15 Pat Name: YURI GALLAGHER Department: Room: - Gender: Female Relief Master: : 1970 Requested By: MARTÍN TORRES Order Number: [id number] Reading MD: SANDEEP OBRIEN Measurements Intervals [place] Rate: 59 P: 53 MO: 155 QRS: 22 QRSD: 99 T: 31 QT: 419 QTc: 418 Interpretive Statements SINUS BRADYCARDIA POSSIBLE RIGHT VENTRICULAR CONDUCTION DELAY [RSR (QR) IN V1/V2] NONSPECIFIC T-WAVE ABNORMALITY No previous ECG available for comparison Electronically Signed On 08-15-2024 20:18:33 EST by SANDEEP OBRIEN Dictated By: Sandeep Obrien D.O. Signed By: 08/15/242018 DD/ TD/TT: Manager Play[facility] Study observation (narrative) [facility] ECG 12-LEADOrdered By: Radio logist Radiology on 08-15-2024 [facility] [employer] Work Phone: XR CHEST 2Von 08-15-2024 [place] [address] XRay Report Signed Patient: YURI GALLAGHER MR#: [id number] : 1970 Acct:[id number] Age/Sex: 53 / F ADM Date: 08/15/24 Loc: [facility] Attending Dr: Martín Torres D.O. Ordering Physician: Martín Torres D.O. Date of Service: 08/15/24 Procedure(s): XR chest 2V Accession Number(s): [id number] cc: Martín Torres D.O.; GENEVIEVE FENG [place] [address] Patient Name: YURI GALLAGHER MRN: TBH:[id number] date: 1970 Sex: F Assigned Patient Location: [facility] Current Patient Location: [facility] Accession/Order Number: [id number] Exam Date: 08/15/2024 14:45 Report Date: 08/15/2024 15:28 At the request of: MARTÍN TORRES Procedure: XR chest 2V PROCEDURE: XR chest 2V DATE: 08/15/2024 2:45 PM EST COMPARISONS: None. CLINICAL INDICATION: 53 years Female Preop exam FINDINGS: The cardiomediastinal silhouette and pulmonary vasculature are within normal limits. The lungs are clear. There is no evidence of pleural effusion or pneumothorax. XR/XR chest 2V IMPRESSION: Chest radiograph is within normal limits. Electronically authenticated by: MINH VOSS Date: 08/15/2024 15:28 Dictated By: Minh Voss M.D. Signed By: 08/15/24 153 DD/ 27 TD/TT: Manager Play: [facility] Radiology, Radiologist, - 08/15/2024 [place] [address] XRay Report Signed Patient: YURI GALLAGHER MR#: [id number] : 1970 Acct:[id number] Age/Sex: 53 / F ADM Date: 08/15/24 Loc: [facility] Attending Dr: Martín Torres D.O. Ordering Physician: Martín Torres D.O. Date of Service: 08/15/24 Procedure(s): XR chest 2V Accession Number(s): [id number] cc: Martín Torres D.O.; GENEVIEVE FENG [place] [address] Patient Name: YURI GALLAGHER MRN: [facility]:[id number] date: 1970 Sex: F Assigned Patient Location: [facility] Current Patient Location: [facility] Accession/Order Number: [id number] Exam Date: 08/15/2024 14:45 Report Date: 08/15/2024 15:28 At the request of: MARTÍN TORRES Procedure: XR chest 2V PROCEDURE: XR chest 2V DATE: 08/15/2024 2:45 PM EST COMPARISONS: None. CLINICAL INDICATION: 53 years Female Preop exam FINDINGS: The cardiomediastinal silhouette and pulmonary vasculature are within normal limits. The lungs are clear. There is no evidence of pleural effusion or pneumothorax. XR/XR chest 2V IMPRESSION: Chest radiograph is within normal limits. Electronically authenticated by: MINH VOSS Date: 08/15/2024 15:28 Dictated By: Minh Voss M.D. Signed By: 08/15/24 1531 DD/ 27 TD/TT: Manager Play: [facility] [employer] Radiology Study observation (narrative) [facility] XR CHEST 2VOrdered By: Radio logist Radiology on 08-15-2024 [facility] [employer] Work Phone: BI MAMMOGRAM SCREENING TOMOS JACKI BILATERALon 08-01-2024 BI MAMMOGRAM SCREENING TOMOSYNTHESIS BILATERAL [...] report is generated using voice recognition reporting ([employer]). On occasion, [employer] erroneously drops words from the report or [...] activity/Vol] 178 U/L 81 - 234 U/L [facility] IGP,APTIMA HPV,AGE GDLNon AGE GDLN ACOG TESTING Note . [facility] Comment on above: TESTS RESULT FLAG UN ITS REF RANGE LAB Clinician Provided Cytology Information Source.............Vagina No. of containers..01 ThinPrep Vial Age Algo ACOG Jeanna... 30-65 01 FLAG LEGEND: L-Low Normal,H-High Normal,LL-Alert Low,HH-Alert High <-Panic Low,>-Panic High,A-Abnormal,AA-Critical Abnormal Performed at: 01 =G [address] [address] Yvette Smart MD, HPV APTIMA Negative Negative [facility] Comment on above: This nucleic acid am plification test detects fourteen high- risk HPV types (16,18,31,33,35,39,45,51,52,56,58,59,66,68) without differentiation. Performed at: =G - [facility], [place] [id number] Dowel Inspector: Yvette Smart MD, Phone: [phone] Performed at: - [address], [place] [address] Dowel Inspector: Yvette Smart MD, Phone: [phone] IGP, APTIMA HPV, RFX 16/18,45 Note . [facility] Comment on above: TESTS RESULT FLAG UN ITS REF RANGE LAB DIAGNOSIS: 02 NEGATIVE FOR INTRAEPITHELIAL LESION OR MALIGNANCY. Specimen adequacy: 02 Satisfactory for evaluation. No endocervical component is identified. Performed by: 02 Nancy Ramirez Paralegal Supervisor (ASCP) . 02 Note: Note 02 The [...] <-Panic Low,>-Panic High,A-Abnormal,AA-Critical Abnormal Performed at: 02 Lab[address] [place] [address] Yvette Smart MD, SPATULA-ALONE [facility] 05-14-2024 CN Office Visit ([facility]) SOCORRO GALLAGHER ([id number]) 1970 F Date Time Provider Department 05/14/24 3:30 PM MARSHA LANDA [facility] During your visit today, we recorded the following information about you: Weight 64 kg Marsha Landa APRN.MAINTENANCE INSTRUCTOR 05/14/2024 4:32 PM Signed Spine Care Path [...] has been under the care of her journeyman painter with MRI thoracic spine imaging completed in [...] pain Pat presesnt 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 Nonsmoker Pain localized to area below rib [...] Physical Therapy: None Treating Physicians: Genevieve Feng MAINTENANCE INSTRUCTOR - PCP Dr Melgar - Plastic Surgery [...] Social Role Satisfaction Percentile 27* 31 03/16/2023 06/19/202304/0904/09/2024 PROMIS Global Health Scale Physical Health Percentile [...] file. ALLERGIES (more content not included)... [facility] RUBENN [facility] ([facility]) LUISSOCORRO Isidro ([id number]) 1970 F Date Time Provider Department 05/13/24 MARSHA LANDA [facility] During your visit today, we recorded the following information about you: Genevieve Barbosa 05/13/2024 12:08 PM Signed Socorro is calling Marsha Landa APRN.[facility] today to ask if you can see her MRI results from [facility], which are for tomorrow's appointment. They told her they were sent to the Imaging Library, but when she tries to call she just gets disconnected. Please advise. Patient has been identified by name and birthdate. Duration of symptoms: N/A Person calling: self Call patient at: at home [phone] (home) [phone] (cell) Was an appointment scheduled: No Closing statement: Results or non-symptom based questions: Thank you for calling [place], your call will be returned within the next business day. Dana Duffy RN 05/13/2024 12:31 PM Signed Neuro SPINE CARE COORDINATION QUICK NOTE Spoke with patient and advised her that we don't have any Thoracic MRI images or report yet and to get a CD from [facility] to bring to the appointment with Marsha tomorrow. She verbalized understanding. I also sent an email to the [employer] library to see if they have anything [...] Allergies) Date Reviewed: 04/25/2024 Reviewed by: Cheyanne Toribio, HERBIE - Fully Assessed Reason for Visit: Patient Question [0721] Prescriptions as of 05/13/2024 - aspirin, enteric [...] Status:Closed by DANA LOZANO on 05/13/24 Normal [facility] Pathology Request for Lab Co rpon 05-02-2024 Pathology Request for Lab Moy Normal [facility] Comment on above: Order Comment: PATHO LOGY GI SPECIMEN Result Comment: See report. Scanned copy available in EMR. PERFORMED BY: [address] [place] [address] PATHOLOGIST FARM SUPERVISOR ANUSHA ROMO M.D. Performed By: #### P ATH TO [facility] #### [facility] [address] [place] [id number] [facility] XR pre/post mri xrayon 05-02 XR pre/post mri xray [facility] Main [place] [address] [place] [address] MRI Report Signed Patient: Yuri Gallagher MR#: [id number] : 1970 Acct:[id number] Age/Sex: 53 / F ADM Date: 05/02/24 Loc: [facility] Room: Type: [facility] CLI Attending Dr: Jose Guadalupe Costa MD Copies to: Jose Guadalupe Costa Ordering Provider: Jose Guadalupe Costa Date of Service: 05/02/24 MR/MR thoracic spine wo con: THORACIC NEURITIS ([id number]) XR/XR pre/post mri xray: THORACIC NEURITIS MR [...] Austin Marsh M.D.05/02/2024 12:53 PM Dictation Location: [place] [address] Transcribed By: [facility] 05/02/24 1253 Dictated By: Austin Marsh II, MD 05/02/24 1241 Signed By: 05/02/24 1253 Normal [facility] CT ENTEROGRAPHY W IVCONon CT ENTEROGRAPHY W IVCON * * *Final Repor t* * * DATE OF EXAM: Apr 25 2024 2:22PM [facility] 0545 - CT ENTEROGRAPHY W IVCON [...] unilocular left adnexal cyst, stable since 03/23/2023. Manager Play: [facility] Transcribe Date/Time: Apr 25 2024 2:55P Dictated by : ODALIS GALAVIZ MD This examination was interpreted and the report reviewed and electronically signed by: ODALIS GALAVIZ MD on Apr 25 2024 3:13PM EST [id number] CN Normal [facility] CT Small bowel W contrast PO and W contrast Lata 04-25-2024 IMPRESSION: No active small bowel inflammation or acute process in the abdomen/pelvis. 3.6 cm unilocular left adnexal cyst, stable since 03/23/2023. Manager Play: [facility] Transcribe Date/Time: Apr 25 2024 2:55P Dictated by : ODALIS GALAVIZ MD This examination was interpreted and the report reviewed and electronically signed by: ODALIS GALAVIZ MD on Apr 25 2024 3:13PM [facility] DIVISION OF RADIOLOGY * * *Final Report* * * DATE OF EXAM: Apr 25 2024 2:22PM [facility] 0545 - CT ENTEROGRAPHY W IVCON [...] Lung Bases: Unremarkable. DIVISION OF RADIOLOGY Provider, [facility] - 04/25/2024 * * *Final Report* * * DATE OF EXAM: Apr 25 2024 2:22PM [facility] 0545 - CT ENTEROGRAPHY W IVCON [...] unilocular left adnexal cyst, stable since 03/23/2023. Manager Play: [facility] Transcribe Date/Time: Apr 25 2024 2:55P Dictated by : ODALIS GALAVIZ MD This examination was interpreted and the report reviewed and electronically signed by: ODALIS GALAVIZ MD on Apr 25 2024 3:13PM EST [place] Rad[facility] Study observation (narrative) [facility] CT Small bowel W contrast PO and W contrast IVOrdered By: [facility] Provider on 04-25-2024 [place] 25(OH)D3 SerPl-mCncon 2023 25-hydroxyvitamin D3 [Mass/Vol] 39.3 ng/mL Normal 31.0-80.0 [facility] Comment on above: Order Comment: Speci men Type: BLOOD SPECIMEN Ordering Facility: [facility] Address: [address] [place] [address] Result Comment: Clas sification of 25 [place] Vitamin D status: Deficiency/Insufficiency: < or = 30 ng/ml. Sufficiency/Optimal Levels: 31-80 ng/mL Toxicity: > 100 ng/mL. Test performed by chemiluminescent immunoassay. Performed By: #### 1 989-3 #### [facility] CLIA [id number] [address] [place] [address] [place] [address] [place] CBC panel Auto (Bld)on 04-10 Erythrocyte distribution width (RBC) [Ratio] 12.4 % 11.5 - 15.0 % [place] Hematocrit (Bld) [Volume fraction] 37.7 % 36.0 - 46.0 % [place] Hemoglobin (Bld) [Mass/Vol] 12.5 g/dL 11.5 - 15.5 g/dL [facility] Interpretation and review of laboratory results Normal [facility] MCH (RBC) [Entitic mass] 30.8 pg 26. 0 - 34.0 pg [facility] MCHC (RBC) [Mass/Vol] 33.2 g/dL 30.5 - 36.0 g/dL [facility] MCV (RBC) [Entitic vol] 92.9 fL 80.0 - 100.0 fL [facility] Nucleated RBC (Bld) [#/Vol] NINF [facility] Platelet mean volume (Bld) [Entitic vol] 10.6 fL 9.0 - 12.7 fL [place] Platelets (Bld) [#/Vol] 274 10*3/uL [facility] RBC (Bld) [#/Vol] 4.06 10*6/uL 3.90 - 5.2 0 m/uL [place] WBC (Bld) [#/Vol] 5.79 10*3/uL [facility] Erythrocyte distribution width (RBC) [Ratio] 12.4 % Normal 11.5-15.0 [facility] Comment on above: Order Comment: Speci men Type: BLOOD SPECIMENOrdering Facility: [facility] Address: [address] [place] [address] Performed By: #### 5 8410-2 ####[facility] [id number] [place] [address] [place] Hematocrit (Bld) [Volume fraction] 37.7 % Normal 36.0-46.0 [facility] Comment on above: Order Comment: Speci men Type: BLOOD SPECIMENOrdering Facility: [facility] Address: [address] [place] [address] Performed By: #### 5 8410-2 ####[facility] [id number] [place] [address] [place] Hemoglobin (Bld) [Mass/Vol] 12.5 g/dL Normal 11.5-15.5 [facility] Comment on above: Order Comment: Speci men Type: BLOOD SPECIMENOrdering Facility: [facility] Address: [address] [place] [address] Performed By: #### 5 8410-2 ####[facility] LABIA [id number] [place] [address] [place] MCH (RBC) [Entitic mass] 30.8 pg Normal 26.0-34.0 [facility] Comment on above: Order Comment: Speci men Type: BLOOD SPECIMENOrdering Facility: [facility] Address: [address] [place] [address] Performed By: #### 5 8410-2 ####[facility] [id number] [place] [address] [place] MCHC (RBC) [Mass/Vol] 33.2 g/dL Normal 30.5-36.0 [facility] Comment on above: Order Comment: Speci men Type: BLOOD SPECIMENOrdering Facility: [facility] Address: [address] [place] [address] Performed By: #### 5 8410-2 ####[facility] [id number] [place] [address] [place] MCV (RBC) [Entitic vol] 92.9 fL Normal 80.0-100.0 C [facility] Comment on above: Order Comment: Speci men Type: BLOOD SPECIMENOrdering Facility: [facility] Address: [address] [place] [address] Performed By: #### 5 8410-2 ####[facility] [id number] [place] [address] [place] Nucleated RBC (Bld) [#/Vol] 10*3/uL Normal <0.01 [facility] Comment on above: Order Comment: Speci men Type: BLOOD SPECIMENOrdering Facility: [facility] Address: [address] [place] [address] Performed By: #### 5 8410-2 ####[facility] [id number] [place] [address] [place] Platelet mean volume (Bld) [Entitic vol] 10.6 fL Normal 9.0-12.7 [facility] Comment on above: Order Comment: Speci men Type: BLOOD SPECIMENOrdering Facility: [facility] Address: [address] [place] [address] Performed By: #### 5 8410-2 ####[facility] LAB[facility] [id number] [place] [address] [place] Platelets (Bld) [#/Vol] 274 10*3/uL Normal 150-400 [facility] Comment on above: Order Comment: Speci men Type: BLOOD SPECIMENOrdering Facility: [facility] Address: [address] [place] [address] Performed By: #### 5 8410-2 ####[facility] LABCLIA [id number] [place] [address] [place] RBC (Bld) [#/Vol] 4.06 10*6/uL Normal 3.90-5.20 [facility] Comment on above: Order Comment: Speci men Type: BLOOD SPECIMENOrdering Facility: [facility] Address: [address] [place] [address] Performed By: #### 5 8410-2 ####[facility] LABIA [id number] [place] [address] [place] WBC (Bld) [#/Vol] 5.79 10*3/uL Normal 3.70-11.00 [facility] Comment on above: Order Comment: Speci men Type: BLOOD SPECIMENOrdering Facility: [facility] Address: [address] [place] [address] Performed By: #### 5 8410-2 ####[facility] LABCLIA [id number] [place] [address] [place] [facility] CRP [Mass/Vol] mg/L Normal <0.9 [facility] Comment on above: Order Comment: Speci men Type: BLOOD SPECIMENOrdering Facility: [facility] Address: [address] [id number] Performed By: #### 2 4323-02, 1987-11 ####[facility] LABCLIA [id number] [address] [address] [place] Comprehensive metabolic 2000 panelon 04-10-2024 Albumin [Mass/Vol] 4.5 g/dL Normal 3.9-4.9 [facility] Comment on above: Order Comment: Speci men Type: BLOOD SPECIMENOrdering Facility: [facility] Address: [address] [place], [place] [id number] Performed By: #### 2 4323-02, 1987-11 ####[facility] LABCLIA [id number] [address] [id number] [place] ALP [Catalytic activity/Vol] 80 U/L Normal 34-123 [facility] Comment on above: Order Comment: Speci men Type: BLOOD SPECIMENOrdering Facility: [facility] Address: [address] [place], [place] [id number] Performed By: #### 2 4323-02, 1987-11 ####[facility] LABCLIA [id number] [place] [address] [place] ALT [Catalytic activity/Vol] 14 U/L Normal 7-38 [facility] Comment on above: Order Comment: Speci men Type: BLOOD SPECIMENOrdering Facility: [facility] Address: [address] [place] [address] Performed By: #### 2 4323-02, 1987-11 ####[facility] LABCLIA [id number] [address] [address] [place] Anion gap [Moles/Vol] 12 mmol/L Normal 8-15 [facility] Comment on above: Order Comment: Speci men Type: BLOOD SPECIMENOrdering Facility: [facility] Address: [address] [place] [address] Performed By: #### 2 4323-02, 1987-11 ####[facility] LABCLIA [id number] [facility] [address] [address] [place] AST [Catalytic activity/Vol] 26 U/L Normal 13-35 [facility] Comment on above: Order Comment: Speci men Type: BLOOD SPECIMENOrdering Facility: [facility] Address: [address] [place], [place] [address] Performed By: #### 2 4323-02, 1987-11 ####[facility] LABCLIA [id number] [place] [address] [place] Bilirubin [Mass/Vol] 0.2 mg/dL Normal 0.2-1.3 [facility] Comment on above: Order Comment: Speci men Type: BLOOD SPECIMENOrdering Facility: [facility] Address: [address] [place], [place] [address] Performed By: #### 2 4323-02, 1987-11 ####[facility] LABCLIA [id number] [facility] [place] [address] [place] Calcium [Mass/Vol] 9.6 mg/dL Normal 8.5-10.2 [facility] Comment on above: Order Comment: Speci men Type: BLOOD SPECIMENOrdering Facility: [facility] Address: [address] [place], [place] [address] Performed By: #### 2 4323-02, 1987-11 ####[facility] LABCLIA [id number] [facility] [address] [id number] [place] Chloride [Moles/Vol] 102 mmol/L Normal 98-107 [facility] Comment on above: Order Comment: Speci men Type: BLOOD SPECIMENOrdering Facility: [facility] Address: [address] [place], [place] [address] Performed By: #### 2 4323-02, 1987-11 ####[facility] LABCLIA [id number] [address] [id number] [place] CO2 [Moles/Vol] 24 mmol/L Normal 22-30 [facility] Comment on above: Order Comment: Speci men Type: BLOOD SPECIMENOrdering Facility: [facility] Address: [address] [place] [address] Performed By: #### 2 43209-14, 1987-11 ####[facility] LABCLIA [id number] [address] [phone] [place] Creatinine [Mass/Vol] 0.78 mg/dL Normal 0.58-0.96 [facility] Comment on above: Order Comment: Speci men Type: BLOOD SPECIMENOrdering Facility: [facility] Address: [address] [place] [address] Performed By: #### 2 43209-14, 1987-11 ####[facility] LABIA [id number] [place] [address] [place] Creatinine and Glomerular filtration rate.predicted panel (S/P/Bld) 91 mL/min/1.73m??? Normal >=60 [facility] Comment on above: Order Comment: Speci men Type: BLOOD SPECIMENOrdering Facility: [facility] Address: [address] [place] [address] Result Comment: Emelyn mated Glomerular Filtration Rate [...] reflect actual GFR. Performed By: #### 2 43209-14, 1987-11 ####[facility] LABCLIA [id number] [address] [id number] [place] Glucose [Mass/Vol] 94 mg/dL Normal 74-99 [facility] Comment on above: Order Comment: Speci men Type: BLOOD SPECIMENOrdering Facility: [facility] Address: [address] [phone] Result Comment: The [place] Diabetes Association (ADA) provides guidance for cutoff [...] Standards of Medical Care in Diabetes 2016, [place] Diabetes Association. Diabetes Care. 2016.39(Suppl 1). Performed By: #### 2 4323-02, 1987-11 ####[facility] LABCLIA [id number] [place] [address] [place] Potassium [Moles/Vol] 4.5 mmol/L Normal 3.7-5.1 [facility] Comment on above: Order Comment: Speci men Type: BLOOD SPECIMENOrdering Facility: [facility] Address: [address] [place] [address] Performed By: #### 2 4323-02, 1987-11 ####[facility] LABIA [id number] [address] [id number] [place] Protein [Mass/Vol] 7.7 g/dL Normal 6.3-8.0 [facility] Comment on above: Order Comment: Speci men Type: BLOOD SPECIMENOrdering Facility: [facility] Address: [address] [phone] Performed By: #### 2 4323-02, 1987-11 ####[facility] LABIA [id number] [address] [phone] [place] Sodium [Moles/Vol] 138 mmol/L Normal 136-144 [facility] Comment on above: Order Comment: Speci men Type: BLOOD SPECIMENOrdering Facility: [facility] Address: [address] [place] [address] Performed By: #### 2 4323-8, 1987-11 ####[facility] LABCLIA [id number] [address] [address] [place] Urea nitrogen [Mass/Vol] 11 mg/dL Normal 7-21 [facility] Comment on above: Order Comment: Speci men Type: BLOOD SPECIMENOrdering Facility: [facility] Address: [address] [facility] [place] [address] Performed By: #### 2 4323-8, 1987-11 ####[facility] LABCLIA [id number] [address] [id number] [place] Office Visiton 04-08-2024 Follow-up visit [id number] Yuri Gallagher 1970 F Date Provider Department Center 04/08/2024 SED[facility] HOLM CARD [facility] Family History Problem Relation Age of Onset No Known Problems Mother Heart attack Father Coronary artery disease Father's Brother Stroke Paternal Grandfather Family Status - Relation Status Age at Mother Father Father's Brother Paternal Grandfather Level of Service:09830 MO OFFICE/OUTPATIENT ESTABLISHED LOW MDM 20 MIN Normal [facility] CT ABDOMEN PELVIS WO IV CONT [facility] 04-02-2024 CT ABDOMEN PELVIS WO IV CONTRAST [...] - challengeon 04-02-2024 Bilirubin Ql (U) Negative [facility] Glucose (U) [Mass/Vol] Negative [facility] Ketones Ql (U) Negative [facility] pH (U) 9.0 [pH] [facility] Specific gravity (U) [Rel density] 1.005 [facility] Urobilinogen (U) [Mass/Vol] 0.2 mg/dL [facility] Laboratory - Microbiology an d Antimicrobial susceptibilityOrdered By: Genevieve Feng on 04-02-2024 Bacteria identified Cx Nom (U) Escherichia coli Abnormal [facility] Laboratory - Specimen inform ationon 04-02-2024 Appearance (U) Clear [facility] Color (U) Clear [facility] Laboratory - Urinalysison Leukocyte esterase Test strip Ql (U) 1+ [facility] Nitrite Ql (U) Negative [facility] Protein Ql (U) Negative [facility] No Panel Informationon 04-02 Urine Occult Blood 3+ [facility] Urine Cultureon 04-02-2024 Bacteria identified Cx Nom (U) ORGANISM: Escherichia coli (O:ESCCOL) [place] Count >100,000 Aerobic LEXIS Charge ([id number]) ----- [...] RESISTANT TO ALL B-LACTAM DRUGS. PERFORMED BY: [facility] [address] [place] [address] PATHOLOGIST FARM SUPERVISOR ANUSHA ROMO M.D. Normal [facility] Comment on above: Performed By: #### C UU #### [address] HPon 03-18-2024 HP Attestation signed by Seda Loza [...] wishes to proceed. Amairani Tinoco MD PGY-4 fur trapper [facility] Dionicio 03-18-2024 NURSNOTE RN educated pt on d/c instructions. RN encouraged pt to voice any questions or concerns. Pt verbalizes no questions or concerns at this time. Pt was wheeled off of unit with all of belongings. Normal [facility] Basophils Auto (Bld) [#/Vol] on 03-13-2024 Basophils (Bld) [#/Vol] 0.0 10 3/uL 0.0-0.1 [facility] Basophils/100 WBC Auto (Bld) on 03-13-2024 Basophils/100 WBC (Bld) 0.6 % 0.2-2.0 F [facility] Eosinophils/100 WBC Auto (Bl d)on 03-13-2024 Eosinophils/100 WBC (Bld) 2.4 % 0.9-7.0 [facility] Erythrocyte distribution wid th Auto (RBC) [Ratio]on 03-13-2024 Erythrocyte distribution width (RBC) [Ratio] 12.0 % 11.0-15.0 [facility] Estimated glomerular filtrat ion rate (GFR) non- Americanon 03-13-2024 GFR/1.73 sq M.predicted among non-blacks MDRD (S/P/Bld) [Vol rate/Area] mL/min/{1.73_m2} >=60 [place] Hematocrit Auto (Bld) [Volum e fraction]on 03-13-2024 Hematocrit (Bld) [Volume fraction] 36.7 % 36.0-48.0 [facility] Hemoglobin [Mass/volume] in Bloodon 03-13-2024 Hemoglobin (Bld) [Mass/Vol] 12.3 g/dL 12.0-16.0 [facility] Laboratory - Chemistry and C hemistry - challengeon 03-13-2024 Calcium [Mass/Vol] 8.8 mg/dL 8.5-10.1 [facility] Chloride [Moles/Vol] 99 mmol/L 98-107 [facility] CO2 [Moles/Vol] 32.4 mmol/L High 21.0-32.0 [facility] Creatinine [Mass/Vol] 0.66 mg/dL 0.55-1.02 [facility] GFR/1.73 sq M.predicted MDRD (S/P/Bld) [Vol rate/Area] mL/min/{1.73_m2} >=60 [facility] Glucose [Mass/Vol] 97 mg/dL 74-106 [facility] Potassium [Moles/Vol] 4.3 mmol/L 3.5-5.1 [facility] Sodium [Moles/Vol] 136 mmol/L 136-145 [facility] Urea nitrogen [Mass/Vol] 17.0 mg/dL 7.0-18.0 [facility] Urea nitrogen/Creatinine [Mass ratio] 25.8 mg/mg [facility] Laboratory - Hematology and Cell countson 03-13-2024 Immature granulocytes/100 WBC (Bld) 0.0 % 0.0-0.5 [facility] Leukocytes [#/volume] correc alejandra for nucleated erythrocytes in Blood by Automated counon 03-13-2024 WBC corrected for nucl RBC Auto (Bld) [#/Vol] 6.3 10 3/uL 4.0-11.0 [facility] Lymphocytes Auto (Bld) [#/Vo l]on 03-13-2024 Lymphocytes (Bld) [#/Vol] 1.7 10 3/uL 1.2-3.8 [facility] Lymphocytes/100 WBC Auto (Bl d)on 03-13-2024 Lymphocytes/100 WBC (Bld) 27.0 % 20.5-60.0 [facility] MCH Auto (RBC) [Entitic mass ]on 03-13-2024 MCH (RBC) [Entitic mass] 31.1 pg 26.7-34.0 [facility] MCHC Auto (RBC) [Mass/Vol]on 03-13-2024 MCHC (RBC) [Mass/Vol] 33.5 g/dL 29.9-35.2 [facility] MCV Auto (RBC) [Entitic vol] on 03-13-2024 MCV (RBC) [Entitic vol] 92.7 fL 81.0-99.0 [facility] Monocytes Auto (Bld) [#/Vol] on 03-13-2024 Monocytes (Bld) [#/Vol] 0.5 10 3/uL 0.3-0.8 [facility] Monocytes/100 WBC Auto (Bld) on 03-13-2024 Monocytes/100 WBC (Bld) 7.7 % 1.7-12.0 F [facility] Neutrophils Auto (Bld) [#/Vo l]on 03-13-2024 Neutrophils (Bld) [#/Vol] 3.9 10 3/uL 1.4-6.5 [facility] Neutrophils/100 WBC Auto (Bl d)on 03-13-2024 Neutrophils/100 WBC (Bld) 62.3 % 43.0-75.0 [facility] No Panel Informationon 03-13 Eosinophils # (Auto) 0.2 10 3/uL 0.0-0.7 [facility] Immature Granulocyte # (Auto) 0.00 10 3/uL 0.00-0.03 [facility] Platelet mean volume Auto (B ld) [Entitic vol]on 03-13-2024 Platelet mean volume (Bld) [Entitic vol] 9.7 fL 9.5-13.5 [facility] Platelets Auto (Bld) [#/Vol] on 03-13-2024 Platelets (Bld) [#/Vol] 246 10 3/uL 150-450 [facility] RBC Auto (Bld) [#/Vol]on RBC (Bld) [#/Vol] 3.96 10 6/uL Low 4.20-5.40 [place] Serum or plasma anion gap de terminationon 03-13-2024 Anion gap [Moles/Vol] 8.9 mmol/L [facility] DEXA BONE DENSITYon 03-12-20 24 DEXA BONE DENSITY FINDINGS: Dual Femur bone density obtained with a [employer] whole body system: Region BMD Young-Adult Age-Matched [...] AP Spine bone density obtained with a [employer] whole body system: Region BMD Young-Adult Age-Matched [...] Not Available Office Visiton 03-04-2024 Follow-up visit [id number] Yuri Gallagher 1970 F Date Provider Department Center 03/04/2024 SEDA HOLM Family History Problem Relation Age of Onset No Known Problems Mother Heart attack Father Coronary artery disease Father's Brother Stroke Paternal Grandfather Family Status - Relation Status Age at Mother Father Father's Brother Paternal Grandfather Level of Service:25187 MO OFFICE/OUTPATIENT NEW MODERATE MDM 45 MINUTES Normal [facility] Orders Onlyon 03-04-2024 Orders Only [id number] Yuri Gallagher 1970 F Date Provider Department Center 03/04/2024 TANISHA ANDINO Family History Problem Relation Age of Onset No Known Problems Mother Heart attack Father Coronary artery disease Father's Brother Stroke Paternal Grandfather Family Status - Relation Status Age at Mother Father Father's Brother Paternal Grandfather Normal [facility] CNOVon 06-21-2023 CNOV Office Visit ([facility]) SOCORRO GALLAGHER ([id number]) 1970 F Date Time Provider Department 06/21/23 8:00 AM MARSHA LANDA [facility] During your visit today, we recorded the following information about you: Weight Height 64 kg 1.6 m Marsha Landa APRN.MAINTENANCE INSTRUCTOR 06/21/2023 9:30 AM Signed [facility] [...] under the care of pain management in [facility] where she recently underwent a right gluteal nerve block without improvement in symptoms. She states that at postinjection follow-up she was offered a piriformis injection but is reluctant to proceed. She reports that she recently had an EMG completed. EMG results were not available at time of today's appointment. 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 Nonsmoker Pain localized to right buttocks Pain [...] Therapy: Spring 2022 attended at [facility] , she states sessions were not effective [...] Denies christina (more content not included)... Normal [facility] RAD - Ultrasound Reporton RAD - Ultrasound Report [id number] #1.00CD:127 [facility] Coding Summary.on 07-31-2020 Coding Summary. CODING DATE: 07/31/2020 FINAL [facility] STATUS: Home (Routine DC) PAYOR: [facility] DESCRIPTION 5373 Level 3 Urology and Related Services ADMIT DX: REASON FOR VISIT DX: R35.0 Frequency of micturition FINAL DX: PRINCIPAL: R35.0 Frequency of micturition SECONDARY: R39.15 Urgency of urination Z87.440 Personal history of urinary (tract) infections F41.1 Generalized anxiety disorder Z87.442 Personal history of urinary calculi [facility] APC STAT DESCRIPTION DOCTOR NAME DATE NOTE: The code number assigned matches the documented diagnosis and / or procedure in the patient's chart. However, the narrative phrase printed from the coding software may appear abbreviated, or result in slightly different terminology. Coded By: So Valle Date Saved: 07/31/2020 12:41 pm [facility] Consent for Procedure/Surger yon 07-30-2020 Consent for Procedure/Surgery [id number]#1.00CD:127 [facility] Consent for Treatmenton 07-11 Consent for Treatment [id number] #1.00CD:127 [facility] Discharge Instructionson Discharge Instructions [id number]#1.00CD:127 Normal [facility] History and Physicalon 07-30 History and Physical [id number]#1.00CD:127 Normal [facility] IntraOperative Documentson 0 07-30-2020 IntraOperative Documents [id number] 9#1.00CD:127 Normal [facility] Main OR Intraoperative Recor don 07-30-2020 Main OR Intraoperative Record IntraOp Document Type FTURO Summary Primary Physician: Facundo Fam Jr., MD Finalized Date/Time: 07/30/20 13:50:41 Pt. Name: YURI GALLAGHER Isidro SteeleB./Sex: 1970 Female Med Rec #: [id number] Physician: Facundo Fam Jr., MD Financial #: [id number] Pt. Type: O Room/Bed: / Admit/Disch: 07/30/20 [...] Yadav MD, Facundo Macias RN, LUKEORDiana CST, Gwen E Role Performed Surgeon - Primary Tobacco Shaker - Primary Scrub - Primary Time In 07/30/20 13:40:00 07/30/20 13:40:00 07/30/20 13:40:00 Time Out 07/30/20 13:51:00 07/30/20 13:51:00 07/30/20 13:51:00 Procedure CYSTOSCOPY LOCAL WITH CYSTOSCOPY LOCAL WITH CYSTOSCOPY LOCAL WITH URETHRAL DILATION(.) URETHRAL DILATION(.) URETHRAL DILATION(.) Comments Last Modified By: LUKE Macias RNOR, BrittaLYNSEY Silva RN, Lou Ann Blank RN, CNOR, Lou [...] Macias RN, Lou Ann 07/30/20 13:50 Normal [facility] Main OR Preoperative Recordo n 07-30-2020 Main OR Preoperative Record Holding Area Document Type FTURO Summary Primary Physician: Facundo Fam Jr., MD Finalized Date/Time: 07/30/20 13:41:28 Pt. Name: LUIS YURI Isidro /Sex: 1970 Female Med Rec #: [id number] Physician: Facundo Fam Jr., MD Financial #: [id number] Pt. Type: O Room/Bed: / Admit/Disch: 07/30/20 [...] LYNSEY Macias RN, Lou Ann 07/30/20 13:41 Colleen RN, CNOR, Diana Avilez 07/30/20 13:41 Normal [facility] Operative Reporton Operative Report Patient: YURI GALLAGHER [...] urine. The Urethra was dilated to: 28 [place] w/ sounds. Devices Implanted: None. Removal: Cystoscope is removed, The patient tolerated it well. Postoperative Information Discharge: Patient is discharged home with antibiotic coverage, Follow up arranged. Normal [facility] Comment on above: Result Comment: Elec tronically [...] have a fever over 100 degrees Normal [facility] Ambulatory Clinical Summaryo n 07-21-2020 Ambulatory Clinical Summary {[id number]}CD:[id number] Normal [facility] Ambulatory Clinical Summary {[id number]}CD:[id number] Normal [facility] Patient Educationon 07-21-19 21 Patient Education Urinary [...] Document Reviewed: 08/03/2012 ExitCare? Patient Information ?2013 [employer]. [facility] Urology Office/Clinic Noteon 07-21-2020 Urology Office/Clinic [...] order Local anesthesia. ABX sent to [facility] in [place]. Ordered: Urology Procedure Order US Renal 2. [...] day(s), # 2 tab(s), Refills(s) 0, Pharmacy: [facility]/pharmacy #[id number], 162, cm, 07/21/20 13:48:00 EST, Height/Length Dosing, 68.5, kg, 07/21/20 13:48:00 EST, Weight Dosing Urnls Dip Stick Auto w/o Microscopy POC 91183 I have reviewed the previous health record information and history for this pt. from Dr. Fam. Follow-up With When Contact Information Sarwat Yadav MD, Facundo Felix [address] [place] [phone]- Additional Instructions: Patient Education Urinary Tract Infection [...] Protein Urine Dipstick: Negative (07/21/20 13:39:00) Specific [place] Urine Dipstick: 1.020 (07/21/20 13:39:00) Urine Appearance [...] is been treated with Bactrim DS. Normal [facility] Comment on above: Result Comment: Elec tronically Signed By: Sarwat Yadav MD, Facundo Felix\.br\Date and Time Signed: 07/21/20 14:42 EST\.br\Electronically Co-Signed By: Lety Marino MA\.br\Date and Time Co-Signed: 07/21/20 14:31 EST Vital Signs Date Time Vital Sign Value Performing Clinician Facility 07-31-2024 13:42-0500 Body mass index (BMI) [Ratio] 26.36 kg/m2 Martín Brian DO Work Phone: [facility] 07-31-2024 13:42-0500 Body weight 67.5 kg Martín Brian DO Work Phone: [facility] 07-31-2024 13:42-0500 Diastolic blood pressure 76 mm[Hg] Martín Brian DO Work Phone: [facility] 07-31-2024 13:42-0500 Systolic blood pressure 112 mm[Hg] Martín Brian DO Work Phone: [facility] 07-01-2024 08:36-0500 Body mass index (BMI) [Ratio] 25.76 kg/m2 Martín Brian DO Work Phone: [facility] 07-01-2024 08:36-0500 Body weight 65.95 kg Martín Brian DO Work Phone: [facility] 07-01-2024 08:36-0500 Diastolic blood pressure 70 mm[Hg] Martín Brian DO Work Phone: [facility] 07-01-2024 08:36-0500 Systolic blood pressure 120 mm[Hg] Martín Brian DO Work Phone: [facility] 05-14-2024 15:18-0500 Body mass index (BMI) [Ratio] 24.99 kg/m2 Marsha Landa SERVER CASHIER.MAINTENANCE INSTRUCTOR Work Phone: [facility] 05-14-2024 15:18-0500 Body weight 64 kg Marsha Landa SERVER CASHIER.MAINTENANCE INSTRUCTOR Work Phone: [facility] 05-02-2024 11:30-0400 Diastolic blood pressure 80 mm[Hg] PHYSICIAN NO [facility] 05-02-2024 11:30-0400 Heart rate 68 /min PHYSICIAN NO [facility] 05-02-2024 11:30-0400 Respiratory rate 16 /min PHYSICIAN NO [facility] 05-02-2024 11:30-0400 SaO2% (BldA) [Mass fraction] 97 % PHYSICIAN NO [facility] 05-02-2024 11:30-0400 Systolic blood pressure 117 mm[Hg] PHYSICIAN NO [facility] 05-02-2024 10:25-0400 Body height 160.02 cm PHYSICIAN NO [facility] 05-02-2024 10:25-0400 Body temperature 97.1 [degF] PHYSICIAN NO [facility] 05-02-2024 10:25-0400 Body weight 61.23 kg PHYSICIAN NO [facility] 05-01-2024 08:59-0400 Body height 160.02 cm PHYSICIAN NO [facility] 05-01-2024 08:59-0400 Body mass index (BMI) [Ratio] 23.9 kg/m2 PHYSICIAN NO [facility] 05-01-2024 08:59-0400 Body weight 61.23 kg PHYSICIAN NO [facility] 04-10-2024 13:24-0400 Body height 160 cm Kyle Zhu MD Work Phone: [facility] 04-10-2024 13:24-0400 Body mass index (BMI) [Ratio] 23.74 kg/m2 Kyle Zhu MD Work Phone: [facility] 04-10-2024 13:24-0400 Body temperature 98.2 [degF] Kyle Zhu MD Work Phone: [facility] 04-10-2024 13:24-0400 Body weight 60.78 kg Kyle Zhu MD Work Phone: [facility] 04-10-2024 13:24-0400 Diastolic blood pressure 80 mm[Hg] Kyle Zhu MD Work Phone: [facility] 04-10-2024 13:24-0400 Heart rate 77 /min Kyle Zhu MD Work Phone: [facility] 04-10-2024 13:24-0400 SaO2% (BldA) [Mass fraction] 97 % Kyle Zhu MD Work Phone: [facility] 04-10-2024 13:24-0400 Systolic blood pressure 120 mm[Hg] Kyle Zhu MD Work Phone: [place] 04-02-2024 10:11-0400 Body height 160.02 cm DAGMAR Feng Work Phone: [facility] 04-02-2024 09:07-0400 Body height 160.02 cm [facility] 04-02-2024 09:07-0400 Body mass index (BMI) [Ratio] 25 kg/m2 [facility] 04-02-2024 09:07-0400 Body temperature 97.4 [degF] [facility] 04-02-2024 09:07-0400 Body weight 64.01 kg [facility] 04-02-2024 09:07-0400 Diastolic blood pressure 80 mm[Hg] [facility] 04-02-2024 09:07-0400 Systolic blood pressure 124 mm[Hg] [facility] 03-22-2024 09:49-0400 Body height 160 cm Blanka Aguirre DO Work Phone: [facility] 03-22-2024 09:49-0400 Body mass index (BMI) [Ratio] 25.01 kg/m2 Blanka Carla DO Work Phone: [facility] 03-22-2024 09:49-0400 Body temperature 97.5 [degF] Blanka Aguirre DO Work Phone: [facility] 03-22-2024 09:49-0400 Body weight 64.05 kg Blanka Aguirre DO Work Phone: [facility] 03-22-2024 09:49-0400 Diastolic blood pressure 72 mm[Hg] Blanka Aguirre DO Work Phone: [facility] 03-22-2024 09:49-0400 Heart rate 81 /min Blanka Aguirre DO Work Phone: [facility] 03-22-2024 09:49-0400 SaO2% (BldA) [Mass fraction] 98 % Blanka Aguirre DO Work Phone: [facility] 03-22-2024 09:49-0400 Systolic blood pressure 126 mm[Hg] Blanka Aguirre DO Work Phone: [facility] 03-21-2024 08:26-0400 Body height 160.02 cm [facility] 03-21-2024 08:26-0400 Body mass index (BMI) [Ratio] 24.6 kg/m2 [facility] 03-21-2024 08:26-0400 Body weight 63.04 kg [facility] 03-21-2024 08:26-0400 Diastolic blood pressure 70 mm[Hg] [facility] 03-21-2024 08:26-0400 Heart rate 73 /min [facility] 03-21-2024 08:26-0400 Respiratory rate 18 /min [facility] 03-21-2024 08:26-0400 SaO2% (BldA) [Mass fraction] 99 % [facility] 03-21-2024 08:26-0400 Systolic blood pressure 118 mm[Hg] [facility] 03-05-2024 11:34-0400 Body mass index (BMI) [Ratio] 25.3 kg/m2 Linda DEVINE Work Phone: [facility] 03-05-2024 11:34-0400 Body weight 64.77 kg Linda DEVINE Work Phone: [facility] 03-05-2024 11:34-0400 Diastolic blood pressure 82 mm[Hg] Linda DEVINE Work Phone: [facility] 03-05-2024 11:34-0400 Systolic blood pressure 122 mm[Hg] Linda DEVINE Work Phone: [facility] 02-26-2024 13:28-0400 Body height 160.02 cm [facility] 02-26-2024 13:28-0400 Body mass index (BMI) [Ratio] 25.1 kg/m2 [facility] 02-26-2024 13:28-0400 Body weight 64.41 kg [facility] 02-26-2024 13:28-0400 Diastolic blood pressure 70 mm[Hg] [facility] 02-26-2024 13:28-0400 Heart rate 80 /min [facility] 02-26-2024 13:28-0400 SaO2% (BldA) [Mass fraction] 98 % [facility] 02-26-2024 13:28-0400 Systolic blood pressure 130 mm[Hg] [facility] 02-19-2024 15:29-0400 Body height 160.02 cm [facility] 02-19-2024 15:29-0400 Body mass index (BMI) [Ratio] 25.3 kg/m2 [facility] 02-19-2024 15:29-0400 Body weight 64.86 kg [facility] 02-19-2024 15:29-0400 Diastolic blood pressure 80 mm[Hg] [facility] 02-19-2024 15:29-0400 Heart rate 87 /min [facility] 02-19-2024 15:29-0400 SaO2% (BldA) [Mass fraction] 98 % [facility] 02-19-2024 15:29-0400 Systolic blood pressure 136 mm[Hg] [facility] 10-12-2023 08:26-0400 Body height 160.02 cm [facility] 10-12-2023 08:26-0400 Body mass index (BMI) [Ratio] 25.1 kg/m2 [facility] 10-12-2023 08:26-0400 Body weight 64.41 kg [facility] 10-12-2023 08:26-0400 Diastolic blood pressure 78 mm[Hg] [facility] 10-12-2023 08:26-0400 Heart rate 78 /min [facility] 10-12-2023 08:26-0400 SaO2% (BldA) [Mass fraction] 98 % [facility] 10-12-2023 08:26-0400 Systolic blood pressure 112 mm[Hg] [facility] 09-14-2023 09:36-0500 Body height 160.02 cm [facility] 09-14-2023 09:36-0500 Body mass index (BMI) [Ratio] 24.6 kg/m2 [facility] 09-14-2023 09:36-0500 Body weight 63.04 kg [facility] 09-14-2023 09:36-0500 Diastolic blood pressure 82 mm[Hg] [facility] 09-14-2023 09:36-0500 Heart rate 88 /min [facility] 09-14-2023 09:36-0500 SaO2% (BldA) [Mass fraction] 98 % [facility] 09-14-2023 09:36-0500 Systolic blood pressure 118 mm[Hg] [facility] 06-21-2023 07:56-0500 Body height 160 cm Marsha Landa SERVER CASHIER.RUBEN Work Phone: [place] 06-21-2023 07:56-0500 Body weight 63.96 kg Marsha Landa SERVER CASHIER.MAINTENANCE INSTRUCTOR Work Phone: [place] 03-20-2023 08:57-0400 Body height 160 cm JAM Melgar MD Work Phone: [place] 03-20-2023 08:57-0400 Body weight 61.24 kg JAM Melgar MD Work Phone: [place] Encounters Encounter Date Encounter Type Care Provider Facility Start: 08-15-2024 End: 08-15-2024 Clinisync Result Encounter Martín Brianneel ACKERMAN Work Phone: [facility] Unsolicited Start: 08-15-2024 End: 08-15-2024 Clinisync Result Encounter Martín Brian DO Work Phone: [facility] Unsolicited Start: 08-06-2024 End: 08-06-2024 ambulatory Blanka Tiwari Ruslan PT Work Phone: [facility] Comment on above: Thoracic spine pain (Primary Dx); Thoracic spondylosis Start: 08-06-2024 End: 08-06-2024 Bamboo flowsheet Blanka Karie Mercer PT Work Phone: [facility] Start: 08-06-2024 End: 08-06-2024 Bamboo flowsheet Blanka Tiwari Ruslan PT Work Phone: [facility] Start: 08-02-2024 End: 08-02-2024 Bamboo flowsheet Sweta Wengerd RESIDENTIAL CARPENTER [facility] Start: 08-02-2024 End: 08-02-2024 Bamboo flowsheet Sweta Wengerd RESIDENTIAL CARPENTER [facility] Start: 08-02-2024 End: 08-02-2024 ambulatory Sweta Wengerd RESIDENTIAL CARPENTER [facility] Comment on above: Thoracic spine pain (Primary Dx); Thoracic spondylosis Start: 08-01-2024 End: 08-01-2024 ambulatory LINDA TONI Not Available Start: 07-31-2024 End: 07-31-2024 Office outpatient visit 15 minutes Martín Brian DO Work Phone: [facility] Comment on above: Pre-op examination; Pelvic pain in female; Complex cyst of left ovary Start: 07-31-2024 End: 07-31-2024 Preprocedural examination done Martín Brian DO Work Phone: [facility] Start: 07-31-2024 End: 07-31-2024 Bamboo flowsheet Martín Brian DO Work Phone: [facility] Start: 07-31-2024 End: 07-31-2024 Bamboo flowsheet Martín Brian DO Work Phone: [facility] Start: 07-31-2024 End: 07-31-2024 ambulatory MARTÍN BRIAN Not Available Start: 07-25-2024 End: 07-25-2024 ambulatory Sweta Wengerd RESIDENTIAL CARPENTER [facility] Comment on above: Thoracic spine pain (Primary Dx); Thoracic spondylosis Start: 07-25-2024 End: 07-25-2024 Bamboo flowsheet Sweta Wengerd RESIDENTIAL CARPENTER [facility] Start: 07-25-2024 End: 07-25-2024 Bamboo flowsheet Sweta Wengerd RESIDENTIAL CARPENTER [facility] Start: 07-23-2024 End: 07-23-2024 ambulatory BLANKA D GUNDLACH Not Available Start: 07-23-2024 End: 07-23-2024 Bamboo flowsheet Blanka D Gundlach PT Work Phone: [facility] Start: 07-23-2024 End: 07-23-2024 Bamboo flowsheet Blanka D Gundlach PT Work Phone: [facility] Start: 07-18-2024 End: 07-18-2024 ambulatory Blanka D Gundlach PT Work Phone: [facility] Comment on above: Thoracic spine pain (Primary Dx); Thoracic spondylosis Start: 07-18-2024 End: 07-18-2024 Bamboo flowsheet Blanka D Gundlach PT Work Phone: [facility] Start: 07-18-2024 End: 07-18-2024 Bamboo flowsheet Blanka D Gundlach PT Work Phone: [facility] Start: 07-11-2024 End: 07-11-2024 ambulatory Blanka D Gundlach PT Work Phone: [facility] Comment on above: Thoracic spine pain (Primary Dx); Thoracic spondylosis Start: 07-11-2024 End: 07-11-2024 Bamboo flowsheet Blanka D Gundlach PT Work Phone: [facility] Start: 07-11-2024 End: 07-11-2024 Bamboo flowsheet Blanka D Gundlach PT Work Phone: [facility] Start: 07-08-2024 End: 07-08-2024 Bamboo flowsheet Blanka D Gundlach PT Work Phone: [facility] Start: 07-08-2024 End: 07-08-2024 Bamboo flowsheet Blanka D Gundlach PT Work Phone: [facility] Start: 07-08-2024 End: 07-08-2024 ambulatory Blanka D Gundlach PT Work Phone: [facility] Comment on above: Thoracic spine pain (Primary Dx); Thoracic spondylosis Start: 07-01-2024 End: 07-01-2024 Bamboo flowsheet Blanka D Gundlach PT Work Phone: [facility] Start: 07-01-2024 End: 07-01-2024 Bamboo flowsheet Blanka D Gundlach PT Work Phone: [facility] Start: 07-01-2024 End: 07-01-2024 Office outpatient visit 15 minutes Martín Brian DO Work Phone: [facility] Comment on above: Complex ovarian cyst ; Pelvic pain in female; Encounter to discuss test results Start: 07-01-2024 End: 07-01-2024 ambulatory Blanka D Gundlach PT Work Phone: [facility] Comment on above: Thoracic spine pain (Primary Dx); Thoracic spondylosis Start: 06-27-2024 End: 06-27-2024 ambulatory BLANKA D GUNDLACH Not Available Start: 06-27-2024 End: 06-27-2024 ambulatory Blanka D Gundlach PT Work Phone: [facility] Comment on above: Thoracic spine pain (Primary Dx); Thoracic spondylosis Start: 06-27-2024 End: 06-27-2024 Bamboo flowsheet Sweta Wengerd RESIDENTIAL CARPENTER [facility] Start: 06-27-2024 End: 06-27-2024 Bamboo flowsheet Sweta Wearturo RESIDENTIAL CARPENTER [facility] Start: 06-20-2024 End: 06-20-2024 ambulatory Blanka D Gundlach PT Work Phone: [facility] Comment on above: Thoracic spine pain (Primary Dx); Thoracic spondylosis Start: 06-20-2024 End: 06-20-2024 Bamboo flowsheet Blanka D Gundlach PT Work Phone: [facility] Start: 06-20-2024 End: 06-20-2024 Bamboo flowsheet Blanka D Gundlach PT Work Phone: [facility] PT Start: 06-18-2024 End: 06-18-2024 ambulatory Blanka D Gundlach PT Work Phone: [facility] PT Comment on above: Thoracic spine pain (Primary Dx); Thoracic spondylosis Start: 06-18-2024 End: 06-18-2024 Bamboo flowsheet Blanka D Gundlach PT Work Phone: [facility] Start: 06-18-2024 End: 06-18-2024 Bamboo flowsheet Blanka D Gundlach PT Work Phone: [facility] Start: 06-12-2024 End: 06-12-2024 Bamboo flowsheet Blanka D Gundlach PT Work Phone: [facility] Start: 06-12-2024 End: 06-12-2024 Bamboo flowsheet Blanka D Gundlach PT Work Phone: [facility] PT Start: 06-12-2024 End: 06-12-2024 Clinisync Result Encounter Martín Torres DO Work Phone: [facility] External Department Unsolicited Start: 06-12-2024 End: 06-12-2024 ambulatory Blanka D Gundlach PT Work Phone: [facility] PT Comment on above: Thoracic spine pain (Primary Dx); Thoracic spondylosis Start: 06-10-2024 End: 06-10-2024 Bamboo flowsheet Blanka D Gundlach PT Work Phone: [facility] Start: 06-10-2024 End: 06-10-2024 Bamboo flowsheet Blanka D Gundlach PT Work Phone: [facility] Start: 06-10-2024 End: 06-10-2024 ambulatory Blanka D Gundlach PT Work Phone: [facility] PT Comment on above: Thoracic spine pain (Primary Dx); Thoracic spondylosis Start: 06-05-2024 End: 06-08-2024 ambulatory Blanka D Gundlach PT Work Phone: [facility] Comment on above: Thoracic spine pain (Primary Dx); Thoracic spondylosis Start: 06-05-2024 End: 06-05-2024 Bamboo flowsheet Blanka D Gundlach PT Work Phone: [facility] Start: 06-05-2024 End: 06-05-2024 Bamboo flowsheet Blanka D Gundlach PT Work Phone: [facility] Start: 06-03-2024 End: 06-03-2024 Bamboo flowsheet Blanka D Gundlach PT Work Phone: [facility] Start: 06-03-2024 End: 06-03-2024 Bamboo flowsheet Blanka D Gundlach PT Work Phone: [facility] Start: 06-03-2024 End: 06-03-2024 ambulatory Blanka D Gundlach PT Work Phone: [facility] Comment on above: Thoracic spine pain (Primary Dx); Thoracic spondylosis Start: 05-31-2024 End: 05-31-2024 Bamboo flowsheet Blanka D Gundlach PT Work Phone: [facility] Start: 05-31-2024 End: 05-31-2024 Bamboo flowsheet Blanka D Gundlach PT Work Phone: [facility] Start: 05-31-2024 End: 05-31-2024 ambulatory Blanka D Gundlach PT Work Phone: [facility] Comment on above: Thoracic spine pain (Primary Dx); Thoracic spondylosis Start: 05-29-2024 End: 05-29-2024 Bamboo flowsheet Blanka D Gundlach PT Work Phone: [facility] Start: 05-29-2024 End: 05-29-2024 Bamboo flowsheet Blanka D Gundlach PT Work Phone: [facility] Start: 05-29-2024 End: 05-29-2024 ambulatory Blanka D Gundlach PT Work Phone: [facility] PT Comment on above: Thoracic spine pain (Primary Dx); Thoracic spondylosis Start: 05-24-2024 End: 05-24-2024 Bamboo flowsheet Blanka D Gundlach PT Work Phone: [facility] Start: 05-24-2024 End: 05-24-2024 Bamboo flowsheet Blanka D Gundlach PT Work Phone: [facility] PT Start: 05-24-2024 End: 05-24-2024 ambulatory Blanka D Gundlach PT Work Phone: [facility] PT Comment on above: Thoracic spine pain (Primary Dx); Thoracic spondylosis Start: 05-22-2024 End: 05-22-2024 Bamboo flowsheet Blakna D Gundlach PT Work Phone: [facility] Start: 05-22-2024 End: 05-22-2024 Bamboo flowsheet Blanka D Gundlach PT Work Phone: [facility] Start: 05-22-2024 End: 05-22-2024 ambulatory Blanka D Gundlach PT Work Phone: [facility] PT Comment on above: Thoracic spine pain (Primary Dx); Thoracic spondylosis Start: 05-17-2024 End: 05-17-2024 Bamboo flowsheet Blanka Mercer PT Work Phone: [facility] Start: 05-17-2024 End: 05-17-2024 Bamboo flowsheet Blanka Mercer PT Work Phone: [facility] Start: 05-17-2024 End: 05-17-2024 ambulatory Blanka Karie Mercer PT Work Phone: [facility] Comment on above: Thoracic spine pain (Primary Dx); Thoracic spondylosis Start: 05-14-2024 End: 05-14-2024 ambulatory MARSHA LANDA Facility:[facility] Start: 05-14-2024 End: 05-14-2024 Patient encounter procedure Marsha Landa APRN.MAINTENANCE INSTRUCTOR Work Phone: [facility] Comment on above: Thoracic spondylosis (Primary Dx); [...] 05-13-2024 End: 05-13-2024 Telephone encounter Marsha Landa APRN.MAINTENANCE INSTRUCTOR Work Phone: [facility] Comment on above: Patient Question Start: 05-13-2024 [...] Start: 05-02-2024 Non-patient / Non-visit PHYSICIAN NO [facility] Work Phone: Start: 05-02-2024 End: 05-02-2024 Admission to same day surgery center PHYSICIAN NO [facility] Work Phone: Start: 05-02-2024 End: 05-02-2024 ambulatory PHYSICIAN NO [facility] Work Phone: Start: 05-02-2024 End: 05-02-2024 Patient encounter procedure PHYSICIAN NO [facility] [address] Work Phone: Start: 05-02-2024 End: 05-02-2024 ambulatory PHYSICIAN NO [facility] Work Phone: Start: 05-01-2024 End: 05-01-2024 ambulatory PHYSICIAN NO [facility] Work Phone: Start: 05-01-2024 End: 05-01-2024 Patient encounter procedure PHYSICIAN NO [facility] Work Phone: Start: 04-25-2024 End: 04-25-2024 ambulatory Kyle Zhu Facility:[facility] Start: 04-25-2024 End: 04-25-2024 Subsequent hospital visit by physician Ct Prep [facility] Rad[facility] Scan Comment on above: Abdominal pain, unsp ecified abdominal location [R10.9] Start: 04-10-2024 End: 04-10-2024 Patient encounter procedure Kyle Zhu MD Work Phone: Gastroenterology Comment on above: Abdominal pain, unsp ecified abdominal location (Primary Dx) Start: 04-10-2024 End: 04-10-2024 ambulatory Kyle Zhu Facility:[facility] Start: 04-08-2024 End: 04-08-2024 ambulatory [facility] Start: 04-02-2024 End: 04-02-2024 ambulatory BLANKA Bose CARLA Not Available Start: 04-02-2024 End: 04-02-2024 Patient encounter procedure [facility] Physician [facility] Work Phone: Start: 04-02-2024 End: 04-02-2024 ambulatory Genevieve Porsharadha [facility] Work Phone: Start: 04-02-2024 End: 04-02-2024 Departed Referred SERVER CASHIER Genevieve Jung Work Phone: [facility] [place] Work Phone: Start: 03-22-2024 End: 03-22-2024 Office outpatient new 45 minutes Blanka C Carla DO Work Phone: [phone] Comment on above: Generalized abdomina l pain (Primary Dx); Gastroesophageal reflux disease, unspecified whether esophagitis present Start: 03-22-2024 End: 03-22-2024 ambulatory BLANKA MCGARRYPADMINI Not Available Start: 03-21-2024 End: 03-21-2024 ambulatory [facility] Work Phone: Start: 03-21-2024 End: 03-21-2024 Patient encounter procedure [facility] Work Phone: Start: 03-18-2024 End: 03-18-2024 ambulatory [facility] Start: 03-18-2024 End: 03-18-2024 ambulatory [facility] Start: 03-13-2024 Non-patient / Non-visit [facility] Physician [facility] Work Phone: Start: 03-12-2024 [...] in female Start: 03-04-2024 Non-patient / Non-visit [facility] Work Phone: Start: 03-04-2024 End: 03-04-2024 ambulatory [facility] Start: 02-26-2024 End: 02-26-2024 ambulatory [facility] Work Phone: Start: 02-26-2024 End: 02-26-2024 Patient encounter procedure [facility] Work Phone: Start: 02-19-2024 End: 02-19-2024 ambulatory [facility] Work Phone: Start: 02-19-2024 End: 02-19-2024 Patient encounter procedure [facility] Work Phone: Start: 10-26-2023 End: 10-26-2023 ambulatory BETHANY URBANOCECI Not Available Start: 10-12-2023 Patient encounter status [facility] Start: 10-12-2023 End: 10-12-2023 ambulatory [facility] Work Phone: Start: 10-12-2023 End: 10-12-2023 Encounter for general adult medical examination without abnormal findings [facility] Start: 10-12-2023 End: 10-12-2023 Patient encounter procedure [facility] Work Phone: Start: 09-14-2023 End: 09-14-2023 Patient encounter procedure [facility] Work Phone: Start: 06-21-2023 End: 06-21-2023 ambulatory MARSHA LANDA Facility:[facility] Start: 06-21-2023 End: 06-21-2023 Patient encounter procedure Marsha Landa APRN.CNP Work Phone: [facility] Comment on above: Right leg pain (Prim antonietta Dx); Numbness and tingling of right lower extremity; Piriformis syndrome, right Start: 03-23-2023 End: 03-23-2023 ambulatory MD Agustin Mortensen Work Phone: [facility] Work Phone: Start: 03-23-2023 End: 03-23-2023 Patient encounter procedure MD Agustin Mortensen Work Phone: [facility] [address] Work Phone: Start: 03-20-2023 End: 03-20-2023 Patient encounter procedure Oscar Melgar MD Work Phone: Plastic Surgery Comment on above: Encounter for cosmet ic surgery (Primary Dx) Start: 10-20-2022 End: 10-21-[address] AGUSTIN MORTENSEN Facility:[facility] Start: 10-11-2022 End: 10-12-2022 [facility] Procedures Date Procedure Procedure Detail Performing Clinician Start: 08-15-2024 XR CHEST 2V Martín Brian DO Work Phone: Start: 08-15-2024 ECG 12-LEAD Martín Brian DO Work Phone: Start: 08-15-2024 ALL CBC WITH AUTO DIFF Martín Brian DO Work Phone: Start: 08-01-2024 Mammography Sweta Wengerd RESIDENTIAL CARPENTER Start: 06-12-2024 ALL LDH Martín Brian DO [...] Screening for malign ant neoplasm of cervix [facility] Start: 04-10-2027 Diabetes Screening Diabetes Screenin [facility] Start: 01-30-2026 Diabetes Screening Diabetes Screenin [facility] Start: 08-01-2025 Screening for malign ant neoplasm of breast Mammogram [facility] Start: 05-15-2025 End: 05-15-2025 Patient encounter procedure 05/15/2025 11:00 AM EST Office Visit [facility] [address] [id number] Linda Carrillo PA [address] [place] [address] [facility] Start: 10-24-2024 End: 10-24-2024 Patient encounter procedure 10/24/2024 8:40 AM EDT Office Visit [facility] [address] [place] [phone] Bethany Chang, DAGMAR-MAINTENANCE INSTRUCTOR [address] [place] [address] [facility] Start: 08-06-2024 End: 08-06-2024 ambulatory [facility] Comment on above: Arrived Start: 08-02-2024 End: 08-02-2024 ambulatory 08/02/2024 7:30 AM EST Treatment [facility] [address] [place] [phone] Sweta Alaniz PTA Arrived [facility] Comment on above: Arrived Start: 08-01-2024 End: 08-01-2024 ambulatory 08/01/2024 3:00 PM EST Treatment [facility] [address] [place] [id number] Blanka Mercer, PT [address] [place] [address] [facility] Start: 08-01-2024 End: 08-01-2024 Professional / ancillary services management 08/01/2024 8:30 AM EST Ancillary Procedure [facility] [place] [address] [place] [address] [facility] [place] Start: 07-31-2024 End: 07-31-2024 Patient encounter procedure [facility] Comment on above: Arrived Start: 07-31-2024 End: 07-31-2024 Professional / ancillary services management 07/31/2024 1:00 PM EST Ancillary Procedure [facility] [address] [place] [address] [place] [address] [facility] Start: 07-30-2024 End: 07-30-2024 ambulatory 07/30/2024 4:00 PM EST Treatment [facility] [address] [place] [phone] Blanka Mercer, PT [address] [place] [address] [facility] Start: 07-25-2024 End: 07-25-2024 ambulatory [facility] Comment on above: Arrived Start: 07-23-2024 End: 07-23-2024 ambulatory [facility] Comment on above: Arrived Start: 07-18-2024 End: 07-18-2024 ambulatory [facility] Comment on above: Arrived Start: 07-16-2024 End: 07-16-2024 ambulatory 07/16/2024 4:30 PM EST Treatment [facility] [address] [place] [phone] Blanka Mercer, PT [address] [place] [address] [facility] Start: 07-11-2024 End: 07-11-2024 [...] EST Office Visit [facility] [address] [place] [phone] Martín Torres, DO [address] [place] [address] [facility] Start: 07-01-2024 End: 07-01-2024 ambulatory [facility] Comment on above: Arrived Start: 06-27-2024 End: 06-27-2024 ambulatory [facility] Comment on above: Arrived Start: 06-25-2024 End: 06-25-2024 ambulatory 06/25/2024 5:00 PM EST Treatment [facility] [address] [place] [phone] Blanka Mercer, PT [address] [place] [address] [facility] Start: 06-23-2024 Screening for malign ant neoplasm of colon [place] Start: 06-20-2024 End: 06-20-2024 ambulatory [facility] Comment on above: Arrived Start: 06-18-2024 End: 06-18-2024 ambulatory 06/18/2024 5:00 PM EST Treatment [facility] [address] [place] [phone] Blanka Mercer, PT [address] [place] [address] [facility] Start: 06-12-2024 Screening for malign ant neoplasm of breast [place] Start: 06-12-2024 End: 06-12-2024 ambulatory [facility] Comment on above: Arrived Start: 06-10-2024 End: 06-10-2024 ambulatory [facility] Comment on above: Arrived Start: 06-05-2024 End: 06-05-2024 ambulatory [facility] Comment on above: Arrived Start: 06-03-2024 End: 06-03-2024 ambulatory [facility] Comment on above: Arrived Start: 06-03-2024 End: 06-03-2024 Patient encounter procedure 06/03/2024 8:00 AM EST Office Visit [facility] [address] [place] [address] [address] [place], [place] [id number] Marsha Landa, DAGMAR.MAINTENANCE INSTRUCTOR [address] [place] [address] back pain [facility] Comment on above: back pain Start: 05-31-2024 End: 05-31-2024 ambulatory [facility] Comment on above: Arrived Start: 05-29-2024 End: 05-29-2024 ambulatory [facility] Comment on above: Arrived Start: 05-24-2024 End: 05-24-2024 ambulatory 05/24/2024 7:00 AM EST Treatment [facility] [address] [place] [address] Blanka Mercer, PT [address] [place] [address] [facility] Start: 05-22-2024 End: 05-22-2024 ambulatory 05/22/2024 7:30 AM EST Treatment [facility] [address] [place] [id number] Blanka Mercer, PT [address] [place] [address] [facility] Start: 05-20-2024 End: 05-20-2024 Professional / ancillary services management 05/20/2024 11:00 AM EST Ancillary Procedure [facility] [address] [place] [address] [place] [id number] [facility] Start: 05-17-2024 End: 05-17-2024 ambulatory 05/17/2024 12:30 PM EST Evaluation [facility] [address] [place] [id number] Blanka Mercer, PT [address] [place] [address] Arrived [facility] Comment on above: Arrived Start: 05-14-2024 End: 05-14-2024 Patient encounter procedure 05/14/2024 3:30 PM EST Office Visit [facility] [address] [address] Marsha Landa, SERVER CASHIER.MAINTENANCE INSTRUCTOR [address] [place] [address] tightness in my upper abdomen and under my ribs [facility] Comment on above: tightness in my uppe [...] OB Comment on above: Arrived Start: 05-02-2024 [facility] Start: 05-02-2024 MR Thoracic spine [facility] Start: 05-02-2024 MR thoracic spine wo con MR th oracic spine wo con [facility] Start: 05-02-2024 XR pre/post mri xray XR pre/post mri xray [facility] Start: 05-02-2024 End: 05-02-2024 [facility] Start: 04-25-2024 End: 04-25-2024 Patient encounter procedure Radiology Ct Scan Comment on above: CT ENTEROGRAPHY W IV CON Start: 04-16-2024 End: 04-16-2024 Professional / ancillary services management 04/16/2024 8:30 AM EDT Ancillary Procedure [facility] [address] [place] [address] [place] [address] [facility] Start: 04-10-2024 End: 07-10-2024 25-hydroxyvitamin D3 [Mass/volume] in Serum or Plasma [place] Comment on above: Expected: 04/10/2024 , Expires: 07/10/2024 Start: 04-10-2024 End: 07-10-2024 C reactive protein [Mass/volume] in Serum or Plasma [place] Comment on above: Expected: 04/10/2024 , Expires: 07/10/2024 Start: 04-10-2024 End: 07-10-2024 Comprehensive metabolic 2000 panel - Serum or Plasma [facility] Work Phone: Comment on above: Expected: 04/10/2024 , Expires: 07/10/2024 Start: 04-02-2024 Bacteria identified in Urine by Culture [facility] Start: 03-10-2024 Covid-19 Vaccine ( season) Covid-19 Vaccine ( season) [place] Start: 03-10-2024 Influenza vaccination Influenza Vacc ine (#1) [place] Start: 03-05-2024 End: 03-05-2025 US for US PELVIS-TRANSVAG IF INDICATED Imaging Routine Pelvic pain in female Expected: 03/05/2024 (Approximate), Expires: 03/05/2025 [facility] Work Phone: Comment on above: Expected: 03/05/2024 (Approximate), Expires: 03/05/2025 Start: 04-25-2023 Shingrix Vaccine (2 of 2) Shingrix Vaccine (2 of 2) [place] Start: 03-10-2023 Influenza vaccination C [facility] Start: 07-10-2022 DEPRESSION ASSESSMENT DEPRESSION ASS ESSMENT [place] Start: 2020 SHINGRIX VACCINE (1 of 2) SHINGRIX VACCINE (1 of 2) [place] Start: 12-07-2015 COLOGUARD (FIT-DNA) COLOGUARD (FIT-D NA) [place] Start: 12-07-2015 Colonoscopy COLONOSCOPY [place] Start: 12-07-2015 COLORECTAL CANCER SCREENING COLORECTAL CANCER SCREENING [place] Start: 12-07-[address] COLONOGRAPHY [facility] Start: 12-07-2015 DIABETES SCREEN DIABETES SCREEN [facility] Start: 12-07-2015 Diabetes Screening Diabetes Screenin g [place] Start: 12-07-2015 FECAL OCCULT BLOOD FECAL OCCULT BLOO D [place] Start: 12-07-2015 Lipid panel Lipid Screening [facility] Start: 12-07-2015 LIPID SCREEN LIPID SCREEN [place] Start: 12-07-2015 Screening for malign ant neoplasm of colon [place] Start: 12-07-2015 SIGMOIDOSCOPY SIGMOIDOSCOPY [facility] Start: 2010 Mammography MAMMOGRAM [place] Start: 2000 HPV TESTING HPV TESTING [place] Start: 2000 Screening for malign ant neoplasm of cervix HPV Testing [place] Start: 12-07-1991 PAP TESTING PAP TESTING [place] Start: 12-07-1991 Screening for malign ant neoplasm of cervix [place] Start: 1989 Hepatitis B Vaccine (1 of 3 - 19+ 3-dose series) Hepatitis B Vaccine (1 of 3 - 19+ 3-dose series) [place] Start: 1989 Urine microalbumin profile [place] Start: 1988 Anxiety Screening Anxiety Screening [place] Start: 1988 Depression Screening Depression Scre ening [place] Start: 1988 HEPATITIS C SCREENING HEPATITIS C [facility] Start: 1988 Hepatitis C screening Hepatitis C [facility] Start: 1988 HIV SCREENING HIV SCREENING [facility] Start: 1988 HIV screening HIV Screening [facility] Start: 06-08-1971 COVID-19 VACCINE (#1) COVID-19 VACCI NE (#1) [place] Start: 1970 HEPATITIS B (1 of 3 - 3-dose series) HEPATITIS B (1 of 3 - 3-dose series) [place] Start: 1970 Hepatitis B Vaccine (1 of 3 - 3-dose series) Hepatitis B Vaccine (1 of 3 - 3-dose series) [place] Start: 1970 Screening for malign ant neoplasm of colon [facility] Cardiovascular stres s testing [facility] Comprehensive metabo lic 2000 panel - Serum or Plasma [facility] CT Abdomen and Pelvi s WO and W contrast IV CT abdomen pelvis w and wo IV contrast Imaging Routine Generalized abdominal pain Ordered: 03/24/2024 [facility] Work Phone: Comment on above: Ordered: 03/24/2024 End: 05-10-2025 CT Small bowel W contrast PO and W contrast IV CT ENTEROGRAPHY W IVCON Radiology Routine Abdominal pain, unspecified abdominal location 1 Occurrences starting 04/10/2024 until 05/10/2025 [place] Comment on above: 1 Occurrences starti ng 04/10/2024 until 05/10/2025 Holter monitor study [facility] Patient Education Know your Meds [facility] Work Phone: THIN PREP TIS PAP AN D HR HPV DNA THIN PREP TIS PAP AND HR HPV DNA Pathology and Cytology Routine Well woman exam with routine gynecological exam Ordered: 05/13/2024 [facility] Comment on above: Ordered: 05/13/2024 US Abdomen limited [facility] US Pelvis [facility] Immunizations Immunization Date Immunization Notes Care Provider Fa cility 02-28-2023 zoster vaccine recombinant [facility] 11-03-2020 COVID-19 Ad26.COV2.S ([place]) [facility] Payers Date Payer Category Payer Self-pay [id number] 2023 Unknown [id number] 2023 Unknown [id number] 2022 Private Health Insurance [id number] 2022 Unknown [id number]. [id number] 1970 Unknown [id number] 2.16.84 0.1.163975.3.579.2.593 1970 Unknown [id number] 2.16.84 0.1.098776.3.579.2.593 1970 Unknown [id number] 2.16.84 0.1.638325.3.579.2.1259 1970 Unknown [id number] 2.16.84 0.1.023065.3.579.2.1259 1970 Unknown [id number] 2.16.84 0.1.312004.3.579.2.1259 1970 Unknown [id number] 2.16.84 0.1.371946.3.579.2.1259 1970 Unknown [id number] 2.16.84 0.1.511646.3.579.2.1259 1970 Unknown [id number] 2.16.84 0.1.407246.3.579.2.1259 1970 Unknown [id number] 2.16.84 0.1.853313.3.579.2.1258 1970 Unknown [id number] 2.16.84 0.1.595297.3.579.2.1258 1970 Unknown [id number] 2.16.84 0.1.581190.3.579.2.1258 1970 Unknown [id number] 2.16.84 0.1.595509.3.579.2.1258 1970 Unknown [id number] 2.16.84 0.1.053217.3.579.2.1258 1970 Unknown [id number] 2.16.84 0.1.711533.3.579.2.1258 1970 Unknown [id number] 2.16.84 0.1.468444.3.579.2.1258 1970 Unknown [id number] 2.16.84 0.1.370600.3.579.2.1258 1970 Unknown [id number] 2.16.84 0.1.792523.3.579.2.1258 1970 Unknown [id number] 2.16.84 0.1.556591.3.579.2.1258 1970 Unknown [id number] 2.16.84 0.1.706668.3.579.2.1258 1970 Unknown [id number] 2.16.84 0.1.524053.3.579.2.1258 1970 Unknown [id number] 2.16.84 0.1.719916.3.579.2.1258 1970 Unknown [id number] 2.16.84 0.1.852600.3.579.2.1258 1970 Unknown [id number] 2.16.84 0.1.630509.3.579.2.1258 1970 Unknown [id number] 2.16.84 0.1.577299.3.579.2.1258 1970 Unknown [id number] 2.16.84 0.1.090017.3.579.2.9 1970 Unknown [id number] 2.16.84 0.1.513780.3.579.2.1258 1970 Unknown [id number] 2.16.84 0.1.006766.3.579.2.1258 1970 Unknown [id number] 2.16.84 0.1.284056.3.579.2.1258 1970 Unknown [id number] 2.16.84 0.1.436070.3.579.2.1258 1970 Unknown [id number] 2.16.84 0.1.607661.3.579.2.1258 1970 Unknown [id number] 2.16.84 0.1.039621.3.579.2.1258 1970 Unknown [id number] 2.16.84 0.1.054411.3.579.2.9 1959 Unknown [id number] 1959 Unknown [id number] Unknown [id number] 2.16.8 40.1.274015.3.579.2.531 Unknown [id number] 2.16.8 40.1.001497.3.579.2.531 Unknown [id number] 2.16.8 40.1.116030.3.579.2.531 Social History Date Type Detail Facility [facility] consumption [facility] [place] Start: 03-14-2023 End: 03-20-2024 History of Social function [place] Start: 03-14-2023 End: 03-20-2024 Area Deprivation Index [place] National Score (1-10 0), lower number is lower risk 61 [place] Start: 1970 Sex Assigned At Not on file [place] Start: 1970 Sex Assigned At Female [facility] Start: 10-12-2023 End: 10-26-2023 Tobacco smoking status NEIS Never smoked tobacco (finding) [facility] Start: 10-02-2024 Tobacco use and exposure Smokeless tobacco non-user [place] Start: 04-10-2024 Alcoholic beverage intake [facility] Start: 03-22-2024 End: 07-01-2024 Alcoholic beverage intake Current drinker of alcohol (finding) [facility] Do you belong to any clubs or organizations such as hoahaoism groups, unions, fraternal or athletic groups, or [...] To some extent [facility] (I/We) worried wheariel er (my/our) food would run out before [...] Blanka Mercer, PT - 08/06/2024 5:00 PM ESTJacque Romo - 07/31/2024 2:10 PM Luis Mercer, PT - 07/18/2024 5:00 PM Luis Mercer, PT - 07/11/2024 4:30 PM EST [...] hold with HEP. documented in this encounter [facility] 07-31-2024 History of Presen t illness Narrative Reason for Appointment: Patient ID: Socorro Gallagher is a 53 y.o. female who presents for Pre-op Visit Patient presents today for Pre Op appointment. Patient is scheduled to undergo Da Chavez assisted Diagnostic Laparoscopy, possible ALEXANDRA, possible FOE, possible BSO on 08/30/[address] Torres at [facility]. MEDICATIONS Current Outpatient Medications Medication Instructions aspirin [...] nursing note reviewed. Exam conducted with a dehydrator tender present. Vitals: Estimated body mass index is [...] reviewed, and patient is to proceed to [facility] OR. Follow Up: Patient is to follow up between 1-2 weeks post operative to assess proper healing and recovery from procedure. Documented by Camelia Frey LPN on behalf of: Martín Torres DO documented in this encounter [facility] 07-18-2024 History of Presen t illness Narrative [...] PT per POC. documented in this encounter [facility] 07-11-2024 History of Presen t illness Narrative [...] PT per POC. documented in this encounter [facility] 07-08-2024 History of Presen t illness Narrative [...] PT per POC. documented in this encounter [facility] 07-01-2024 History of Presen t illness Narrative [...] nursing note reviewed. Exam conducted with a dehydrator tender present. Vitals: Estimated body mass index is 25.76 kg/m as calculated from the following: Height as of 24: 5' 3 . Weight as of this [...] for surgical management. Patient to discuss with Document Image Technician prior to leaving office today. Patient given order to have another ultrasound done prior to surgery in August 2024. Documented by Yola Hylton LPN on behalf of: Martín Torres DO documented in this encounter [facility] 07-01-2024 History of Presen t illness Narrative [...] PT per POC. documented in this encounter [facility] 06-27-2024 History of Presen t illness Narrative [...] PT per POC. documented in this encounter [facility] 06-20-2024 History of Presen t illness Narrative [...] PT per POC. documented in this encounter [facility] 06-18-2024 History of Presen t illness Narrative [...] PT per POC. documented in this encounter [facility] 06-12-2024 History of Presen t illness Narrative [...] PT per POC. documented in this encounter [facility] 06-10-2024 History of Presen t illness Narrative [...] PT per POC. documented in this encounter [facility] 06-05-2024 History of Presen t illness Narrative [...] PT per POC. documented in this encounter [facility] 06-03-2024 History of Presen t illness Narrative [...] PT per POC. documented in this encounter [facility] 05-31-2024 History of Presen t illness Narrative [...] PT per POC. documented in this encounter [facility] 05-29-2024 History of Presen t illness Narrative [...] PT per POC. documented in this encounter [facility] 05-24-2024 History of Presen t illness Narrative [...] PT per POC. documented in this encounter [facility] 05-22-2024 History of Presen t illness Narrative [...] PT per POC. documented in this encounter [facility] 05-17-2024 History of Presen t illness Narrative [...] Went to see PCP and eventually saw family consumer scientist, gastroenterology. Cardiac heart cath was negative. CT [...] sign below. 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 Reviewed following up with her journeyman painter in regards to possible thoracic spine TALA. She was advised that if journeyman painter does not perform this procedure that I [...] 2024 TIME:3:14 PM documented in this encounter [place] 05-14-2024 Note HNO ID: [id number] Author: MARSHA LANDA APRN.CNP Service: ? 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 pantoprazo (more content not included)... [facility] 05-13-2024 Telephone encounter Note Neuro SPINE CARE COORDINATION QUICK NOTE Called patient to let her know that we received the thoracic MRI images from 05/02 along with the report. They have been uploaded to her chart. [place] 05-13-2024 Miscellaneous Notes Neuro SPINE CARE COORDINATION [...] yet and to get a CD from [facility] to bring to the appointment with Marsha tomorrow. She verbalized understanding. I also sent an email to the [employer] to see if they have anything pending for the patient. Socorro is calling Marsha Landa APRN.RUBEN today to ask if you can see her MRI results from [facility], which are for tomorrow's appointment. They told her they were sent to the Imaging Library, but when she tries to call she just gets disconnected. Please advise. Patient has been identified by name and birthdate. Duration of symptoms: N/A Person calling: self Call patient at: at home [phone] (home) [phone] (cell) Was an appointment scheduled: No Closing statement: Results or non-symptom based questions: Thank you for calling [place], your call will be returned within the next business day. Genevieve Villafuerte documented in this encounter [place] 05-13-2024 Telephone encounter Note Neuro SPINE CARE COORDINATION QUICK NOTE Spoke with patient and advised her that we don't have any Thoracic MRI images or report yet and to get a CD from [facility] to bring to the appointment with Marsha tomorrow. She verbalized understanding. I also sent an email to the film library to see if they have anything pending for the patient. [facility] 05-13-2024 Telephone encounter Note Socorro is calling Marsha Landa APRN.CNP today to ask if you can see her MRI results from [facility], which are for tomorrow's appointment. They told her they were sent to the Imaging Library, but when she tries to call she just gets disconnected. Please advise. Patient has been identified by name and birthdate. Duration of symptoms: N/A Person calling: self Call patient at: at home [phone] (home) [phone] (cell) Was an appointment scheduled: No Closing statement: Results or non-symptom based questions: Thank you for calling [place], your call will be returned within the next business day. Genevieve Villafuerte [facility] 05-13-2024 History of Presen t illness [...] nursing note reviewed. Exam conducted with a dehydrator tender present. Vitals: Estimated body mass index is [...] of: SYBIL Ortiz documented in this encounter [facility] 05-02-2024 History and physical note Note Date/Time May 02, 2024 10:18am [facility] [address] [place] [address] Gastroenterology H&P Signed Patient: Yuri Gallagher MR#: [id number] : 1970 Acct:[id number] Age/Sex: 53 / F Adm Date: 4 Loc: Room: Type: [facility] Attending Dr: Lady Vásquez DO Copies to: Lady Vásquez, DO Genevieve Feng APRN, RUBEN~ Date of Service: 05/02/2024 HISTORY [...] signed by Lady Vásquez DO> 05/02/24 1058 [facility] Work Phone: [phone] [facility] History of Present illness Narrative* Cheyanne Toribio [...] PATIENT PRESENTS WITH AN IMPLANTABLE OR ATTACHED SWAGER OPERATOR: No RADIOLOGY DEPARTMENT: CT; Exam(s) Completed: Abdomen/Pelvis PERIPHERAL IV DATA: Site assessment: Clean,Dry and Intact, Site disposition Discontinued SIGNED BY: RT Lisa(R) April 25, 2024 2:16 PM [place]10-17-2024 NoteHNO ID: [id number] Author: CHEYANNE TORIBIO RN Service: Nursing Author [...] Gallagher DATE: April 25, 2024 TIME: 12:53 [facility]10-17-2024 NoteHNO ID: [id number] Author: RAQUEL ROSAS RT(R) Service: ? Author [...] PATIENT PRESENTS WITH AN IMPLANTABLE OR ATTACHED SWAGER OPERATOR: No RADIOLOGY DEPARTMENT: CT; Exam(s) Completed: Abdomen/Pelvis PERIPHERAL IV DATA: Site assessment: Clean,Dry and Intact, Site disposition Discontinued SIGNED BY: Raquel Rosas, RT(R) April 25, 2024 2:16 [facility]10-02-2024 NoteHNO ID: [id number] Author: KYLE ZHU MD Service: ? Author [...] by others. Kyle Zhu MD Date: [facility] 10[facility] History of Present illness Narrative* Kyle [...] fevers. No help with protonix, CT scan 9/24 - possible thickening of the distal small [...] Date: April 10, 2024 documented in [place] encounter[place]09-30-2024 NoteCardiology Clinic Note Chief Complaint: New patient [...] (TTE) complete Result Date: 03/18/2024 1 1 [facility] Heart Station [address] [place] [address] [phone] (fax) Echocardiogram-[facility] Name: YURI GALLAGHER Study Date: 03/18/2024 09:23 AM B/P: / HR: 68 bpm Date of : 1970 Location: [facility] Height: 63 in. Age: 53 year(s) Patient [...] IVSd, 2D 0.71 c (more content not included)...[facility]09-13-2024 History of Present illness Narrative* Blanka Aguirre, [...] therapist. 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 Stress test was done and heart cath (Monday). Stock Worker does not believe pain she is having [...] Did not see any kidney stones. Labs (TBH) were done as well. SUBJECTIVE: CURRENT MEDICATIONS: [...] Depression: Not at risk (06/19/2023) Received from [place], [place] PHQ-2 PHQ-2 score: 0 Social History Tobacco [...] which included preparing to see the patient, [id number] patient care including obtaining/reviewing history and performing [...] AGUIRRE D.O. This note was entered using [employer]. Grammatical and dictation errors maybe present in translation *I have reviewed and reconciled the history and medication list with the patient today* documented [id number] NotePatient: Socorro Gallagher Procedure Information Date/Time: 03/18/24 1030 Procedure: Coronary angiography (Left) - PC APPROVED w possible PCI Location: [facility] [place] [address] / [facility] (Cath) Providers: Seda Loza [...] discussed with attending and fellow. Additional Equipment [facility]sMari[facility]08-27-2024 History of Present illness Narrative* SYBIL Ortiz [...] behalf of: SYBIL Ortiz documented in this encounterC[id number] NoteCardiology Clinic Note Chief Complaint: New [...] hesitate to contact cardiolog (more content not included)...[facility]12-13-2023 History of Present illness Narrative* Marsha Landa, DAGMAR.MAINTENANCE INSTRUCTOR - 06/21/2023 8:00 AM EST Images from [...] under the care of pain management in [facility] where she recently underwent a right gluteal nerve block without improvement in symptoms. She states that at postinjection follow-up she was offered a piriformis injection but is reluctant to proceed. She reports that she recently had an EMG completed. EMG results were not available at time of today's appointment. 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 Author [...] under the care of pain management in [facility] where she recently underwent a right gluteal nerve block without improvement in symptoms. She states that at postinjection follow-up she was offered a piriformis injection but is reluctant to proceed. She reports that she recently had an EMG completed. EMG results were not available at time of today's appointment. 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 : Denies chapa (more content not included)...[facility] 03-20-2023 History of Present illness Narrative* [...] flanks. Oscar Melgar MD documented in this encounter[place]04-13-2023 NoteCONSULTATION CONSULTATION DATE: 10/20/2022 TO: Agustin Mortensen [...] our patients to inform us about any vgvr-xuv-rbszefu medications or herbal remedies/nutritional supplements/alternative remedies. 2. [...] treatment options with their primary care provider.[id number] NotePROCEDURE: XR ANKLE RT MIN 3 VIEWS, [...] authenticated by: CHRISTINA ROBLERO Date: 2022-10-11 11:33[facility] [id number] NotePROCEDURE: XR ANKLE RT MIN 3 VIEWS, [...] Electronically authenticated by: CHRISTINA ROBLERO Date: 2022-10-11 11:33[facility]06-30-2015 Evaluation note* Diagnosis Onset Date Resolution Status Anxiety January 06, 2015 acute Anxiety January 06, 2015 acute Palpitations acute Screening for lipid disorders acute Screening for metabolic disorder acute Screening, deficiency anemia, iron acute Wellness examination acute [facility] Work Phone: Evaluation note* Diagnosis Encounter for cosmetic surgery- Primary Other plastic surgery for unacceptable cosmetic appearance documented in this encounter [facility]No assessment information [facility] Work Phone: [facility] note* Diagnosis Right leg pain- Primary Pain in limb Numbness and tingling of right lower extremity Piriformis syndrome, right documented in this encounter [facility] note* Diagnosis Onset Date Resolution Status Chest tightness acute Dizziness acute Family history of heart dise ase in male family member before age 55 acute Palpitations acute [facility] Work Phone: evaluation note* Diagnosis Onset Date Resolution Status Chest tightness acute Dizziness acute Family history of heart dise ase in male family member before age 55 acute Palpitations acute Abdominal pain acute Bloating acute [facility] Work Phone: Evaluation note* Diagnosis Onset Date Resolution Status Chest tightness acute Dizziness acute Family history of heart dise ase in male family member before age 55 acute Palpitations acute Abdominal pain acute Bloating acute Anxiety January 06, 2015 acute Chest wall pain acute Myocardial bridge acute UTI (urinary tract infection) acute [facility] Work Phone: evaluation note* Diagnosis Abdominal pain, unspecified abdominal location- Primary [facility] Diagnosis Abdominal pain, unspecified abdominal location documented [facility] this [facility]* Diagnosis Onset Date Resolution Status Chest tightness acute Dizziness acute Family history of heart dise ase in male family member before age 55 acute Palpitations acute Abdominal pain acute Bloating acute Anxiety January 06, 2015 acute Chest wall pain acute Myocardial bridge acute UTI (urinary tract infection) acute Upper abdominal pain acute [facility] Work Phone: Evaluation note* Diagnosis Well woman exam with routine gynecological exam Routine gynecological examination Other screening mammogram Surgical menopause documented in this encounter [facility]* Diagnosis Thoracic spondylosis- Primary Thoracic spondylosis without myelopathy 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 Displacement of thoracic intervertebral disc without myelopathy Epigastric pain Abdominal pain, epigastric documented in this encounter [place]* Diagnosis Thoracic spine pain- Primary Pain in thoracic spine Thoracic spondylosis documented in this encounter [facility] Healthcare[facility]* Diagnosis Thoracic spine pain- Primary Pain in thoracic spine Thoracic spondylosis documented in this encounter [facility]* Diagnosis Thoracic spine pain- Primary Pain in thoracic spine Thoracic spondylosis documented in this encounter [facility]* Diagnosis Thoracic spine pain- Primary Pain in thoracic spine Thoracic spondylosis documented in this encounter [facility] note* Diagnosis Thoracic spine pain- Primary Pain in thoracic spine Thoracic spondylosis documented in this encounter [facility]* Diagnosis Generalized abdominal pain- Primary Abdominal pain, generalized Gastroesophageal reflux disease, unspecified whether esophagitis present documented in this encounter [facility]* Diagnosis Encounter to discuss test results Other specified counseling Pelvic pain in female Unspecified symptom associated with female genital organs documented in this encounter [facility]* Diagnosis Complex ovarian cyst Pelvic pain in female Unspecified symptom associated with female genital organs Encounter to discuss test results Other specified counseling [facility] Diagnosis Thoracic spine pain- Primary Pain in thoracic spine Thoracic spondylosis documented in this encounter [facility]* Diagnosis Thoracic spine pain- Primary Pain in thoracic spine Thoracic spondylosis documented in this encounter [facility]* Diagnosis Pre-op examination Pelvic pain in female Unspecified symptom associated with female genital organs Complex cyst of left ovary [facility] Rehabilitation - Outpatient (Routine) - Authorized Specialty Diagnoses / Procedures Referred By Contac t Referred To Contact Physical Therapy Diagnoses Back pain Procedures MO PHYSICAL THERAPY EVALUATION LOW COMPLEX 20 MINS Rusaln Blanka Tiwari, PT [address] [place] [address] Phone: tel: fax: Ruslan Blanka Tiwari, PT [address] [place] [address] Phone: tel: fax: Referral ID Status Reason Start Date Expiration Date Visits Requested Visits Authorized [id number] Authorized Consult and Treat 05/15/2024 11/11/2024 40 40 [facility] HealthcareReason for [facility] Narrative* Rehabilitation - Outpatient (Routine) - Authorized Specialty Diagnoses / Procedures Referred By Contac t Referred To Contact Physical Therapy Diagnoses Back pain Procedures MO PHYSICAL THERAPY EVALUATION LOW COMPLEX 20 MINS Ruslan Blanka Tiwari, PT [address] [place] [address] Phone: tel: fax: Blanka Mercer, PT [address] [place] [address] Phone: tel: fax: Referral ID Status Reason Start Date Expiration Date Visits Requested Visits Authorized [id number] Authorized Consult and Treat 05/15/2024 07/09/2024 40 40 [facility] HealthcareReason for visit Narrative* Rehabilitation - Outpatient (Routine) - Authorized Specialty Diagnoses / Procedures Referred By Contac t Referred To Contact Physical Therapy Diagnoses Low back pain, unspecified Procedures MO THERAPEUTIC PX 1/> AREAS EACH 15 MIN EXERCISES Marsha Landa MD [address] [place] [address] Phone: tel: fax: Blnaka Mercer, PT [address] [place] [address] Referral ID Status Reason Start Date Expiration Date V isits Requested Visits Authorized [id number] Authorized 07/09/2024 01/05/2025 40 40 [facility] HealthcareReason for visit Narrative* Rehabilitation - Outpatient (Routine) - Authorized Specialty Diagnoses / Procedures Referred By Contac t Referred To Contact Physical Therapy Diagnoses Low back pain, unspecified Procedures MO THERAPEUTIC PX 1/> AREAS EACH 15 MIN EXERCISES Marsha Landa MD [address] [place] [address] Phone: tel: fax: Blanka Mercer, PT [address] [place] [address] Referral ID Status Reason Start Date Expiration Date V isits Requested Visits Authorized [id number] Authorized 07/09/2024 07/09/2025 40 40 [facility] Summary Purpose Family [...] ABD & PELVIS W/CONTRAST Kyle Zhu MD [address] [place] [address] [address] [facility] [place] [address] Referral ID Status Reason Start Date Expiration Date Visits Requested Visits Authorized [id number] Authorized Auto-Generat ed Referral 04/10/2024 05/10/2025 1 1 Referral ID Status Reason Start Date Expiration Date V isits Requested Visits Authorized [id number] Closed Auto-Generate d Referral 04/10/2024 05/10/2025 1 1 Specialty Diagnoses / Procedures Referred By Contac t Referred To Contact [facility] Diagnoses Generalized abdominal pain Thoracic spondylosis 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 Procedures CONSULT TO PHYSICAL THERAPY PHYSICAL THERAPY EVALUATION HIGH COMPLEX 45 MINS Marsha Landa, SERVER CASHIER.MAINTENANCE INSTRUCTOR [address] [place] [id number] [facility] [place] [address] [place] [address] Referral ID Status Reason Start Date Expiration Date Visits Requested Visits Authorized [id number] Pending Review Auto-Generat ed Referral 05/14/2024 05/14/2025 1 1 Specialty Diagnoses / Procedures Referred By Tyson t Referred To Contact Radiology Diagnoses Generalized abdominal pain Procedures CT abdomen pelvis w and wo IV contrast Blanka Aguirre, DO [address] [place] [address] Referral ID Status Reason Start Date Expiration Date V isits Requested Visits Authorized [id number] Pending Review 03/24/2024 09/20/2024 1 1 Additional Source Comments INFORMATION SOURCE (unrecogn ized section and content) DATE CREATED AUTHOR 09/08/2020 Puckett Vahe [facility] DATE CREATED AUTHOR AUTHOR'S ORGANIZ ATION 10/27/2022 [facility] DATE CREATED AUTHOR AUTHOR'S ORGANIZ ATION 05/16/2024 [facility] DATE CREATED AUTHOR AUTHOR'S ORGANIZ ATION 05/27/2024 [facility] DATE CREATED AUTHOR AUTHOR'S ORGANIZ ATION 08/08/2024 [facility] DATE CREATED AUTHOR AUTHOR'S ORGANIZ ATION 08/23/2024 [facility] Source Comments (unrecognize d section and content) In the event this informatio n is protected by the Federal Confidentiality of Alcohol and Drug Abuse Patient Records regulations: The Federal rules restrict any use of the information to criminally investigate or prosecute any alcohol or drug abuse patient.[place]In the event this information is protected by the Federal Confidentiality of Alcohol and Drug Abuse Patient Records regulations: The Federal rules restrict any use of the information to criminally investigate or prosecute any alcohol or drug abuse patient.[place]ervilleIn the event this information is protected by the Federal Confidentiality of Alcohol and Drug Abuse Patient Records regulations: The Federal rules restrict any use of the information to criminally investigate or prosecute any alcohol or drug abuse patient.[place]ervilleIn the event this information is protected by the Federal Confidentiality of Alcohol and Drug Abuse Patient Records regulations: The Federal rules restrict any use of the information to criminally investigate or prosecute any alcohol or drug abuse patient.[place]ervilleIn the event this information is protected by the Federal Confidentiality of Alcohol and Drug Abuse Patient Records regulations: The Federal rules restrict any use of the information to criminally investigate or prosecute any alcohol or drug abuse patient.CentervilleIn the event this information is protected by the Federal Confidentiality of Alcohol and Drug Abuse Patient Records regulations: The Federal rules restrict any use of the information to criminally investigate or prosecute any alcohol or drug abuse patient.CentervilleIn the event this information is protected by the Federal Confidentiality of Alcohol and Drug Abuse Patient Records regulations: The Federal rules restrict any use of the information to criminally investigate or prosecute any alcohol or drug abuse patient.CentervilleIn the event this information is protected by the Federal Confidentiality of Alcohol and Drug Abuse Patient Records regulations: The Federal rules restrict any use of the information to criminally investigate or prosecute any alcohol or drug abuse patient.[place] Reason for Visit (unrecogniz ed section and content) Reason Comments Radiology CT Specialty Diagnoses / Procedures Referred By Contac t Referred To Contact CT IMAGING Diagnoses Abdominal pain, unspecified abdominal location Procedures CT ENTEROGRAPHY W IVCON CT ABD & PELVIS W/CONTRAST Kyle Zhu MD [address] [place] [address] [place] [id number] Referral ID Status Reason Start Date Expiration Date V isits Requested Visits Authorized [id number] Closed Auto-Generate d Referral 04/10/2024 05/10/2025 1 [...] Member Role Status Dates Genevieve Feng APRN ENGINEERING AGENT-C Primary Care Provider Active Team Status: Inactive Member Role Status Dates Agustin Mortensen MD Primary Care Provider Active Start: September 14, 2023 End: September 14, 2023 Genevieve Feng APRN ENGINEERING AGENT-C Attending Provider Act star Start: September 14, 2023 End: September 14, 2023 Team Status: Inactive Member Role Status Dates Agustin Mortensen MD Primary Care Provider Active Start: October 12, 2023 End: October 12, 2023 Genevieve Feng APRN ENGINEERING AGENT-C Attending Provider Act star Start: October 12, 2023 End: October 12, 2023 Team Status: Inactive Member Role Status Dates Genevieve Feng APRN ENGINEERING AGENT-C Primary Care Provider, Attending Provider Active Start: February 19, 2024 End: February 19, 2024 Team Status: Inactive Member Role Status Dates Genevieve Feng APRN ENGINEERING AGENT-C Primary Care Provider, Attending Provider Active Start: February 26, 2024 End: February 26, 2024 Team Status: Active Member Role Status Dates Genevieve Feng APRN ENGINEERING AGENT-C Primary Care Provider Active Start: March 132023 Seda Loza MD Attending Provider Active Start: March 13, 2024 Team Status: Inactive Member Role Status Dates Genevieve Feng APRN ENGINEERING AGENT-C Primary Care Provider, Attending Provider Active Start: March 21, 2024 End: March 21, 2024 Team Status: Active Member Role Status Dates Genevieve Feng APRN ENGINEERING AGENT-C Primary Care Provider Active Start: March 04, 2024 Sandeep Obrien DO Attending Provider Active Sta rt: March 04, 2024 Team Status: Inactive Member Role Status Dates Genevieve Feng APRN ENGINEERING AGENT-C Primary Care Provider, Attending Provider Active Start: April 02, 2024 End: April 02, 2024 Team Status: Inactive Member Role Status Dates Genevieve Feng APRN ENGINEERING AGENT-C Attending Provider Act star Start: April 02, 2024 End: April 02, 2024 Team Status: Inactive Member Role Status Dates Genevieve Feng APRN ENGINEERING AGENT-C Attending Provider Active Start: March End: April 02, 2024 PHYSICIAN NO FAMILY Primary Care Provider Active Start: April 02, 2024 End: April 02, 2024 Team Status: Inactive Member Role Status Dates Lady Vásquez DO Attending Provider Active St art: May 01, 2024 End: May 01, 2024 Genevieve Feng APRN ENGINEERING AGENT-C Primary Care Provider Active Start: April End: May 01, 2024 Team Status: Active Member Role Status Dates Genevieve Feng APRN ENGINEERING AGENT-C Primary Care Provider Active Start: May 02, 2024 Jose Guadalupe Costa MD Attending Provider Acti ve Start: May 02, 2024 Team Status: Inactive Member Role Status Dates Genevieve Feng APRN ENGINEERING AGENT-C Primary Care Provider Active Start: April End: May 02, 2024 Lady Vásquez DO Attending Provider Active St art: May 02, 2024 End: May 02, 2024 Team Status: Active Member Role Status Dates Genevieve Fegn APRN ENGINEERING AGENT-C Primary Care Provider Active Start: April Lady Vásquez DO Attending Provider, Other Provider Active Start: May 02, 2024 Team Status: Inactive Member Role Status Dates Genevieve Feng APRN ENGINEERING AGENT-C Primary Care Provider Active Start: May 02, 2024 End: May 02, 2024 Jose Guadalupe Costa MD Attending Provider Acti ve Start: May 02, 2024 End: May 02, 2024 Aircraft Design Engineer Relationship Specialty Start Date End Date Agustin Mortensen MD [address] [facility] [place] [address] PCP - General Family Medicine 03/16/23 Aircraft Design Engineer Relationship Specialty Start Date End Date Agustin Mortensen MD [address] [facility] [place] [id number] PCP - General Family Medicine 03/16/23 Aircraft Design Engineer Relationship Specialty Start Date End Date Agustin Mortensen MD [address] [facility] [place] [id number] PCP - General Family Medicine 03/16/23 Aircraft Design Engineer Relationship Specialty Start Date End Date Agustin Mortensen MD [address] [facility] [place] [address] PCP - General Family Medicine 03/16/23 Blanka Aguirre DO [address] [facility] [address] [place] [address] PCP - Medical Severance Commercial 07/10/16 07/09/99 Aircraft Design Engineer Relationship Specialty Start Date End Date Agustin Mortensen MD [address] [facility] [place] [address] PCP - General Family Medicine 03/16/23 Blanka Aguirre DO [address] [place] [address] PCP - Medical Severance Commercial 07/10/16 07/09/99 Aircraft Design Engineer Relationship Specialty Start Date End Date Agustin Mortensen MD [address] [facility] [place] [address] PCP - General Family Medicine 03/16/23 Blanka Aguirre DO [address] [place] [address] PCP - Medical Severance Commercial 07/10/16 07/09/99 Aircraft Design Engineer Relationship Specialty Start Date End Date Agustin Mortensen MD [address] [facility] [place] [address] PCP - General Family Medicine 03/16/23 Blanka Aguirre DO [address] [place] [address] PCP - Medical Severance Commercial 07/10/16 07/09/99 Aircraft Design Engineer Relationship Specialty Start Date End Date Agustin Mortensen MD [address] [facility] [place] [id number] PCP - General Family Medicine 03/16/23 Blanka Aguirre DO [address] [facility] [address] [place] [address] PCP - Medical Severance Commercial 07/10/16 07/09/99 Aircraft Design Engineer Relationship Specialty Start Date End Date Agustin Mortensen MD [address] [facility] [place] [phone] PCP - General Family Medicine 03/16/23 Blanka Aguirre DO [address] [place] [address] PCP - Medical Severance Commercial 07/10/16 07/09/99 Aircraft Design Engineer Relationship Specialty Start Date End Date Agustin Mortensen MD [address] [facility] [place] [id number] PCP - General Family Medicine 03/16/23 Blanka Aguirre DO [address] [place] [address] PCP - Medical Severance Commercial 07/10/16 07/09/99 Aircraft Design Engineer Relationship Specialty Start Date End Date Agustin Mortensen MD [address] [facility] [place] [address] PCP - General Family Medicine 03/16/23 Blanka Aguirre DO [address] [place] [address] PCP - Medical Severance Commercial 07/10/16 07/09/99 Aircraft Design Engineer Relationship Specialty Start Date End Date Agustin Mortensen MD [address] [facility] [place] [address] PCP - General Family Medicine 03/16/23 Blanka Aguirre DO [address] [place] [address] PCP - Medical Severance Commercial 07/10/16 07/09/99 Aircraft Design Engineer Relationship Specialty Start Date End Date Agustin Mortensen MD [address] [facility] [place] [phone] PCP - General Family Medicine 03/16/23 Aircraft Design Engineer Relationship Specialty Start Date End Date Agustin Mortensen MD [address] [facility] [place] [phone] PCP - General Family Medicine 03/16/23 Aircraft Design Engineer Relationship Specialty Start Date End Date Agustin Mortensen MD [address] [place] [address] PCP - General Family Medicine 03/16/23 Aircraft Design Engineer Relationship Specialty Start Date End Date Agustin Mortensen MD [address] [facility] [place] [address] PCP - General Family Medicine 03/16/23 Blanka Aguirre DO [address] [place] [address] PCP - Medical Severance Commercial 07/10/16 07/09/99 Aircraft Design Engineer Relationship Specialty Start Date End Date Agustin Mortensen MD [address] [facility] [place] [phone] PCP - General Family Medicine 03/16/23 Blanka Aguirre DO [address] [facility] [address] [place], [facility] PCP - Medical Severance Commercial 07/10/16 07/09/99 Aircraft Design Engineer Relationship Specialty Start Date End Date Agustin Mortensen MD [address] [facility] [place] [phone] PCP - General Family Medicine 03/16/23 Blanka Aguirre, [address] [place] [address] PCP - Medical Severance Commercial 07/10/16 07/09/99 Aircraft Design Engineer Relationship Specialty Start Date End Date Agustin Mortensen MD [address] [facility] [place] [phone] PCP - General Family Medicine 03/16/23 Blanka Aguirre DO [address] [place] [address] PCP - Medical Severance Commercial 07/10/16 07/09/99 Aircraft Design Engineer Relationship Specialty Start Date End Date Agustin Mortensen MD [address] [facility] [place] [address] PCP - General Family Medicine 03/16/23 Blanka Aguirre DO [address] [facility] [address] [place] [address] PCP - Medical Severance Commercial 07/10/16 07/09/99 Aircraft Design Engineer Relationship Specialty Start Date End Date Agustin Mortensen MD [address] [facility] [place] [phone] PCP - General Family Medicine 03/16/23 Blanka Aguirre DO [address] [facility] [address] [place] [address] PCP - Medical Severance Commercial 07/10/16 07/09/99 Aircraft Design Engineer Relationship Specialty Start Date End Date Agustin Mortensen MD [address] [facility] [place] [address] PCP - General Family Medicine 03/16/23 Blanka Aguirre DO [address] [place] [address] PCP - Medical Severance Commercial 07/10/16 07/09/99 Goals (unrecognized section and [...] BE BASED ON THE PRIMARY CLINICAL RECORDS. [facility] [employer] [facility]. provides no warranty or guarantee of the accuracy or completeness of information in this document.
[2024-08-30 06:40] LABS: Basophils Percent Auto 0.8 % (0.2-2.0); Eosinophils Absolute Auto 0.1 10^3/uL (0.0-0.7); Eosinophils Percent Auto 2.1 % (0.9-7.0); Hematocrit 39.4 % (36.0-48.0); Hemoglobin 13.3 g/dL (12.0-16.0); Lymphocytes Absolute Auto 1.6 10^3/uL (1.2-3.8); Lymphocytes Percent Auto 33.4 % (20.5-60.0); Mean Corpuscular HGB Conc 33.8 g/dL (29.9-35.2); Mean Corpuscular Hemoglobin 31.2 pg (26.7-34.0); Mean Corpuscular Volume 92.5 fL (81.0-99.0); Mean Platelet Volume 9.7 fL (9.5-13.5); Monocytes Absolute Auto 0.4 10^3/uL (0.3-0.8); Monocytes Percent Auto 8.7 % (1.7-12.0); Neutrophils Absolute Auto 2.7 10^3/uL (1.4-6.5); Platelet Count 260 10^3/uL (150-450); Red Blood Count 4.26 10^6/uL (4.20-5.40); Red Cell Distribution Width 12.2 % (11.0-15.0); White Blood Count 4.8 10^3/uL (4.0-11.0)
[2024-08-30] MEDS: LACTATED RINGER'S SOLUTION 1,000 ML 50 ML IV (07:07)
--- NOTE | 2024-08-30 09:21 | P.ON_ITS ---
Brief Operative Note Date of procedure: 08/30/24 Pre-op diagnosis general: pelvic pain, lt ovarian cyst Post-op diagnosis: same as pre-op Procedure: NAME OF PROCEDURE: robotic assisted laparoscopic bilateral salpingectomy and lt oopherectomy findings:significant adhesions of lt ovary to pelvic side wall and omentum PROCEDURE: The patient was taken back to the Operating Room where she was given general anesthesia without difficulty. She was then prepped and draped in the normal sterile fashion after being placed in a dorsal lithotomy position. A wet sponge stick was placed into the patient's vagina. Attention was then turned to the patient's abdomen, where a scalpel was used to make a small infraumbilical incision. The S retractors were then used to dissect the underlying layers until the fascia could be seen. The fascia was then grasped with Fred clamps and tented up. A knife was then used to make a small incision to the fascia. The muscle was identified, at that time two sutures of #0 Vicryl on a GI needle was then used and placed through the fascia. the peritoneum was then identified and entered bluntly. The 10-4 Netta was then placed into the patient's abdomen. This was confirmed with direct visualization of the bowel, using the laparoscope. The patient's abdomen was then insufflated using approximately 4 liters of CO2 gas. Survey of the patient's abdomen demonstrated rt ovary was normal in appearance and lt ovarian cyst approx 5cm in size, bilateral swollen tubes, absent uterus . A second and third rt and lt lateral robotic ports which were 8 mm in size, was then placed after the skin incision was made under direct visualization . the robotic arms were engaged. The vessel sealer was used to come across the infundibular pelvic ligament on the lt side and the tube and ovary were removed, the rt tube was also removed using the vessel sealer, Excellent hemostasis was noted. The lateral ports were then moved under direct visualization with excellent hemostasis. All instruments were removed from the patient's abdomen. The fascia was closed using the #0 Vicryl on GI needle. The skin was closed using 4-0 Vicryl subcuticularly. All instruments were removed from the patient's vagina as well. The patient was taken out of the dorsal lithotomy position and placed in the supine position and taken to recovery in stable condition. Sponge, lap and needle counts were correct x2. Anesthesia: GETA Surgeon: Martín Torres Oracle Software Engineer: Dalia Thurston Estimated blood loss (mL): 5 Pathology: other (bilateral tubes and lt ovary) Condition: stable Disposition: floor Urinary Catheter Management Urinary Catheter Management Urethral: Cath placed during this visit: no
[2024-08-30] MEDS: LACTATED RINGER'S SOLUTION 1,000 ML 1000 ML IV ×2 (09:35→11:52)
== END 2024-08-30 13:10 | disposition home or self-care (01) ==
PROVIDERS: PCP Nurse Practitioner Family; Visit Provider Obstetrics & Gynecology
PROC: (CPT 840; principal; 2024-08-30 07:30)
DX: N83.292 Other ovarian cyst, left side (principal); R10.2 Pelvic and perineal pain; I25.10 Atherosclerotic heart disease of native coronary artery without angina pectoris; K21.9 Gastro-esophageal reflux disease without esophagitis; Z90.710 Acquired absence of both cervix and uterus
CPT/HCPCS: 58661; 36415; 85025; 88302; 88305; J1100; J1885; J2250; J2371; J2405; J2704; J3010

== ENCOUNTER 2024-12-04 14:10 | Outpatient (OUT) | payer OTHER, SELFPAY ==
--- OUTSIDE RECORDS SUMMARY | 2024-12-04 14:11 | XMS_ITS | Encounter Summary ---
Author Organization [facility] Address [address] [place] [address] Care Team Providers Care Ice Skating Coach Name Role Phone Unavailable Primary Care Provider Unavailabl e Source Comments In the event this information is protected by the Federal Confidentiality of Alcohol and Drug AbusePatient Records regulations: The Federal rules restrict any use of the information to criminally investigate or prosecute any alcohol or drug abuse patient.[facility] Encounter Details Date Type Department Care Team (Late st Contact Info) Description 05/15/2024 Patient Msg Spine [place] [address] [address] Eve Pedro, SOLID WASTE DISPOSAL MANAGER.ARTIFICIAL LIMB FITTER [address] [place] [address] Appointment Cancellation Request Social History Tobacco Use Types Packs/Day Years Used Date Smoking Tobacco: Never Smokeless Tobacco: Never Alcohol Use Standard Drinks/Week Comments Not Currently 0 (1 standard drink = 0.6 oz pur e alcohol) PHQ-2 Answer Date Recorded PHQ-2 score 5 05/14/2024 Area Deprivation Index Answer Date Flaco rded National Score (1-100), lower number is lower ri sk 61 03/14/2023 State Score (1-10), lower number is lower risk 4 03/14/2023 Data from: https://www.neighborhoodatlas.medicine.[facility].edu/. Last address used for calculation [address] [address] 03/14/2023 Comments No Sex and Gender Information Value Date Recorded Sex Assigned at Not on file Legal Sex Female 1:53 PM EDT Gender Identity Not on file Sexual Orientation Not on file documented as of this encounter Plan of Treatment Not on file documented as of this encounter Visit Diagnoses Not on filedocumented in this encounter
--- OUTSIDE RECORDS SUMMARY | 2024-12-04 14:11 | XMS_ITS | Patient Health Record ---
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
--- OUTSIDE RECORDS SUMMARY | 2024-12-04 14:11 | XMS_ITS | Encounter Summary ---
Author Organization [facility] Address [address] [place] [address] Care Team Providers Care Quality Control Chemist Name Role Phone Unavailable Primary Care Provider Unavailabl e Source Comments In the event this information is protected by the Federal Confidentiality of Alcohol and Drug AbusePatient Records regulations: The Federal rules restrict any use of the information to criminally investigate or prosecute any alcohol or drug abuse patient.[facility] Encounter Details Date Type Department Care Team (Late st Contact Info) Description 04/15/2024 Get Medical Advice Gastroenterology [address] [id number] [place] [address] [place] [address] SCAN DONE AT [facility] Social History Tobacco Use Types Packs/Day Years Used Date Smoking Tobacco: Never Smokeless Tobacco: Never Alcohol Use Standard Drinks/Week Comments Not Currently 0 (1 standard drink = 0.6 oz pur e alcohol) PHQ-2 Answer Date Recorded PHQ-2 score 0 06/19/2023 Area Deprivation Index Answer Date Flaco rded National Score (1-100), lower number is lower ri sk 61 03/14/2023 State Score (1-10), lower number is lower risk 4 03/14/2023 Data from: https://www.neighborhoodatlas.[facility]/. Last address used for calculation [address] [...]
--- OUTSIDE RECORDS SUMMARY | 2024-12-04 14:11 | XMS_ITS | Encounter Summary ---
Author Organization [facility] Address [address] [place] [address] Care Team Providers Care Staff Development Nurse Name Role Phone Patience Jimenez MD Primary Care Provider [phone] González Mcallister DO Unavailable [phone] Encounter Details Date Type Department Care Team (Late st Contact Info) Description 05/21/2024 Clinisync Result Encounter [facility] External Department Unsolicited Rosetta Torres DO [address] [place] [address] Social History Tobacco Use Types Packs/Day Years Used Date Smoking Tobacco: Never Alcohol Use Standard Drinks/Week Comments Yes 0 (1 standard drink = 0.6 oz pure alcohol) 1-2 drinks less than monthly in the past year, Caffeine intake: 1-2 cups per day coffee B1300 Health Literacy Answer Date Recor ded How often do you need to hav e someone help you when you read instructions, pamphlets, or other written material from your doctor or pharmacy? Never 03/20/2024 Social Connection and Isolat ion Panel [NHANES] Answer Date Recorded In a typical week, how many times do you talk on the phone with family, friends, or neighbors? More than three times a week 03/20/2024 How often do you get togethe r with friends or relatives? Once a week 03/20/2024 How often do you attend chur or tenriism services? Never 03/20/2024 Do you belong to any clubs o r organizations such as jewish groups, unions, fraternal or athletic groups, or school groups? No 03/20/2024 How often do you attend meet ings of the clubs or organizations you belong to? Never 03/20/2024 Are you , , di vorced, , never , or living with a partner? 03/20/2024 AUDIT-C Answer Date Recorded Q1: How often do you have a drink containing alc ohol? 2-4 times a month 03/20/2024 Q2: How many drinks containi ng alcohol do you have on a typical day when you are drinking? 1 or 2 03/20/2024 Q3: How often do you have si x or more drinks on one occasion? Never 03/20/2024 Overall Financial Resource Strain (CARDIA) Answe r Date Recorded How hard is it for you to pa y for the very basics like food, housing, medical care, and heating? Not hard at all 03/20/2024 [facility] - Occupational Stress Questionnaire Answer Date Recorded Do you feel stress - tense, restless, nervous, or anxious, or unable to sleep at night because your mind is troubled all the time - these days? To some extent 03/20/2024 Exercise Vital Sign Answer Date Recorde d On average, how many days pe r week do you engage in moderate to strenuous exercise (like a brisk walk)? 7 days 03/20/2024 On average, how many minutes do you engage in exercise at this level? 60 min 03/20/2024 Hunger Vital Sign Answer Date Recorded Within the past 12 months, y ou worried that your food would run out before you got the money to buy more. Never true 03/20/20 24 Within the past 12 months, t he food you bought just didn't last and you didn't have money to get more. Never true 03/20/2024 PRAPARE - Transportation Answer Date Re corded In the past 12 months, has l ack of transportation kept you from medical appointments or from getting medications? No 03/10 In the past 12 months, has l ack of transportation kept you from meetings, work, or from getting things needed for daily living? No 03/20/2024 Housing Stability Vital Sign Answer Shimon e Recorded In the last 12 months, was t here a time when you were not able to pay the mortgage or rent on time? No 03/20/2024 Number of Times Moved in the Last Year Not on fi le 03/20/2024 At any time in the past 12 m [facility], were you homeless or living in a halfway (including now)? No 03/20/2024 Comments No Sex and Gender Information Value Date Recorded Sex Assigned at Female 03/16/2023 11:27 AM EDT Legal Sex Female 8:01 PM EDT Gender Identity Female 03/16/2023 11:27 AM EDT Sexual Orientation Not on file documented as of this encounter Plan of Treatment Upcoming Encounters Date Type Department Care Team (Late st Contact Info) Description 05/15/2025 11:00 AM EST Office Visit [facility] OB [address] [place] [address] Linda Carrillo PA [address] [place] [address] documented as of this encounter Procedures Procedure Name Priority Date/Time Associated Diagnosis Comments US PELVIS W/ TRANSVAGINAL 05/21/2024 3:18 PM EST documented in this encounter Results * US PELVIS W/ TRANSVAGINAL (05/21/2024 3:18 PM EST) Anatomical Region Laterality Modality Other 05/21/2024 3:18 PM EST Narrative 05/21/2024 3:20 [place] [address] Ultrasound Report Signed Patient: YURI GALLAGHER MR#: [id number] : 1970 Acct:[id number] Age/Sex: 53 / F ADM Date: 05/20/24 Loc: [facility] Attending Dr: Rosetta Torres D.O. Ordering Physician: Rosetta Torres D.O. Date of Service: 05/20/24 Procedure(s): US pelvis w/ transvaginal Accession Number(s): [id number] cc: Rosetta Torres D.O.; DANAY LBACKMON [place] [id number] Patient Name: YURI GALLAGHER MRN: [id number] date: 1970 Sex: F Assigned Patient Location: [facility] Current Patient Location: Accession/Order Number: [id number] Exam Date: 05/20/2024 10:58 Report Date: 05/21/2024 15:18 At the request of: ROSETTA TORRES Procedure: US pelvis w/ transvaginal EXAMINATION: US pelvis w/ transvaginal HISTORY: Adnexal cyst N94.9 COMPARISON: 02/29/2024 FINDINGS: The uterus is surgically absent The right ovary is not visualized The left ovary is only visualized on transabdominal images measuring 4.8 x 4.1 x 3.8 cm. 4.1 x 2.8 x 3.2 cm area of anechoic echogenicity a simple cyst is favored No free fluid US/US pelvis w/ transvaginal IMPRESSION: 4.1 cm left ovarian cyst Electronically authenticated by: FLORESITA ROSE Date: 05/21/2024 15:18 Dictated By: Floresita Rose M.D. Signed By: 05/21/24 1520 DD/ 1518 TD/TT: Repair Welder: Procedure Note Radiology, Radiologist, MD - 05/21/2024 [place] [address] Ultrasound Report Signed Patient: YURI GALLAGHER LMR#: [id number] : 1970Acct:[id number] Age/Sex: 53 / FADM Date: 05/20/24 Loc: [facility] Attending Dr: Rosetta Torres D.O. Ordering Physician: Rosetta Torres D.O. Date of Service: 05/20/24 Procedure(s): US pelvis w/ transvaginal Accession Number(s): [id number] cc: Rosetta Torres D.O.; DANAY BLACKMON [place] [phone] Patient Name: YURI GALLAGHER MRN: [facility]:[id number] date: 1970 Sex: F Assigned Patient Location: [facility] Current Patient Location: Accession/Order Number: [id number] Exam Date: 05/20/2024 10:58 Report Date: 05/21/2024 15:18 At the request of: ROSETTA TORRES Procedure: US pelvis w/ transvaginal EXAMINATION: US pelvis w/ transvaginal HISTORY: Adnexal cyst N94.9 COMPARISON: 02/29/2024 FINDINGS: The uterus is surgically absent The right ovary is not visualized The left ovary is only visualized on transabdominal images measuring 4.8 x4.1 x 3.8 cm. 4.1 x 2.8 x 3.2 cm area of anechoic echogenicity a simple cystis favored No free fluid US/US pelvis w/ transvaginal IMPRESSION: 4.1 cm left ovarian cyst Electronically authenticated by: FLORESITA ROSE Date: 05/21/2024 15:18 Dictated By: Floresita Rose M.D. Signed By:05/21/24 1520 DD/ 1518 TD/TT: Repair Welder: us Rosetta Torres DO [facility] Final Result documented in this encounter Visit Diagnoses Not on filedocumented in this encounter Care Teams Staff Development Nurse Relationship Specialty Start Date End Date Patience Jimenez MD PCP - General Family Medicine 03/16/23 González Mcallister DO [address] [address] PCP - Medical [place] [employer] 07/10/16 07/09/99 documented as of this encounter
--- OUTSIDE RECORDS SUMMARY | 2024-12-04 14:11 | XMS_ITS | Encounter Summary ---
Author Organization [facility] Address [address] [place] [address] Care Team Providers Care Online Program Coordinator Name Role Phone Unavailable Primary Care Provider Unavailabl e Source Comments In the event this information is protected by the Federal Confidentiality of Alcohol and Drug AbusePatient Records regulations: The Federal rules restrict any use of the information to criminally investigate or prosecute any alcohol or drug abuse patient.[facility] Encounter Details Date Type Department Care Team (Late st Contact Info) Description 11/29/2023 Patient Msg Plastic Surgery [address] [place] [address] Oscar Melgar MD [address] [place] [address] [place] [address] Appointment Request Social History Tobacco Use Types Packs/Day Years Used Date Smoking Tobacco: Never Assessed PHQ-2 Answer Date Recorded PHQ-2 score 0 06/19/2023 Area Deprivation Index Answer Date Flaco rded National Score (1-100), lower number is lower ri sk 61 03/14/2023 State Score (1-10), lower number is lower risk 4 03/14/2023 Data from: https://www.neighborhoodatlas.medicine.[facility].edu/. Last address used for calculation [address] 03/14/2023 Comments Unknown Sex and Gender Information Value Date Recorded Sex Assigned at Not on file Legal Sex Female 1:53 PM EDT Gender Identity Not on file Sexual Orientation Not on file documented as of this encounter Plan of Treatment Not on file documented as of this encounter Visit Diagnoses Not on filedocumented in this encounter
--- OUTSIDE RECORDS SUMMARY | 2024-12-04 14:11 | XMS_ITS | Encounter Summary ---
Author Organization [facility] Address [address] [facility] [place] [address] Care Team Providers Care Service Member Name Role Phone Patience Jimenez MD Primary Care Provider [phone] González Mcallister DO Unavailable [phone] Encounter Details Date Type Department Care Team (Late Contact Info) Description 03/05/2024 Abstract [facility] [address] [address] Martín Torres DO [address] [place] [address] Dr [address], [place] [address] Social History Tobacco Use Types Packs/Day Years Used Date Smoking Tobacco: Never Alcohol Use Standard Drinks/Week Comments Yes 0 (1 standard drink = 0.6 oz pure alcohol) 1-2 drinks less than monthly in the past year, Caffeine intake: 1-2 cups per day coffee Comments No Sex and Gender Information Value Date Recorded Sex Assigned at Female 03/16/2023 11:27 AM EDT Legal Sex Female 8:01 PM EDT Gender Identity Female 03/16/2023 11:27 AM EDT Sexual Orientation Not on file documented as of this encounter Plan of Treatment Upcoming Encounters Date Type Department Care Team (Late Contact Info) Description 05/15/2025 11:00 AM EST Office Visit [facility] OB [address] [place] [address] [place] [address] Linda Carrillo PA [address] [place] [address] [address] [place], [facility] documented as of this encounter Visit Diagnoses Not on filedocumented in this encounter Care Teams Service Member Relationship Specialty Start Date End Date Patience Jimenez MD PCP - General Family Medicine 03/16/23 González Mcallister DO [address] [place] [address] PCP - Medical [place] [employer] 07/10/16 07/09/99 documented as of this encounter
--- OUTSIDE RECORDS SUMMARY | 2024-12-04 14:11 | XMS_ITS | Clinical Summary ---
Author Organization [facility] Address [address] [place] [address] Care Team Providers Care Bedspread Cutter Hand Name Role Phone Sandeep Mcclelland DO Primary Care Provider [phone] Allergies No known active allergies Medications Medication Sig Dispensed Refills Start Date End Date Status busPIRone (Buspar) 5 mg tablet Take 5 mg by mouth two times daily. Active estradiol (Estrace) 0.5 mg tablet Take 0.5 mg by mouth in the morning. Pt is taking half a pill Active aspirin 81 mg EC tablet Take 81 mg by mouth in the morning. Active LORazepam (Ativan) 0.5 mg tablet Take 0.5 mg by mouth every 6 (six) hours if needed for anxiety. Active rosuvastatin (Crestor) 20 mg tabletIndications:A bnormal stress test Take 1 tablet (20 mg) by mouth in the morning. 90 tablet 3 03/18/2024 Active Additional Information Patient not taking.Reported on 04/08/2024 metoprolol succinate XL (Toprol-XL) 25 mg 24 hr tabletIndications:A bnormal stress test Take 1 tablet (25 mg) by mouth in the morning. Do not crush or chew. 90 tablet 3 03/18/2024 Active Additional Information Patient not taking.Reported on 04/08/2024 pantoprazole (ProtoNix) 40 mg EC tablet Take 40 mg by mouth before breakfast. 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 Palpitations 04/08/2024 Screening, deficiency anemia, iron 04/08/2024 UTI (urinary tract infection) 04/08/2024 Abnormal stress test 03/04/2024 Nerve entrapment syndrome of right foot 01/31/20 23 Anxiety 01/06/2015 Family History Medical History Relation Name Comments Heart attack Father Coronary artery disease Father's Brother No Known Problems Mother Stroke Paternal Grandfather Relation Name Status Comments Father Father's Brother Mother Paternal Grandfather Social History Tobacco Use Types Packs/Day Years Used Date Smoking Tobacco: Never Smokeless Tobacco: Never Tobacco Cessation:Counseling Given: Not Answered Alcohol Use Standard Drinks/Week Comments Not Asked 0 (1 standard drink = 0.6 oz pur e alcohol) occation Sex and Gender Information Value Date Recorded Sex Assigned at Not on file Gender Identity Not on file Sexual Orientation Not on file Last Filed Vital Signs Vital Sign Reading Time Taken Comments Blood Pressure 122/86 04/08/2024 3:18 PM EDT Pulse 85 04/08/2024 3:18 PM EDT Temperature - - Respiratory Rate 21 03/18/2024 1:30 PM EDT Oxygen Saturation 96% 04/08/2024 3:18 PM EDT Inhaled Oxygen Concentration - - Weight 63 kg (139 lb) 04/08/2024 3:18 PM EDT Height 160 cm (5' 3 ) 04/08/2024 3:18 PM EDT Body Mass Index 24.62 04/08/2024 3:18 PM EDT Plan of Treatment Health Maintenance Due Date Last Done Comments CT Colonography 1970 Colonoscopy 1970 FIT-DNA 1970 FOBT 1970 Sigmoidoscopy 1970 Pneumococcal Vaccine: Pediat rics (0 to 5 Years) and At-Risk Patients (6 to 64 Years) (1 of 2 - PCV) 1976 Depression Screening 1982 Hepatitis B Vaccines (1 of 3 - 19+ 3-dose series) 1989 Adult Tetanus 1992 HPV/Cotest 2000 Colorectal Cancer Screening 06/23/2022 FIT 06/23/2022 06/23/2021 Zoster Vaccines (2 of 2) 04/25/2023 02/28/2023 COVID-19 Vaccine (2 - 2023-2 5 season) 2024 11/03/2020 Influenza Vaccine (Season Ended) 2025 Mammogram 06/12/2025 06/12/2023 Cervical Cancer Screening 05/13/2027 Pap Smear 05/13/2027 05/13/2024 HIB Vaccines Aged Out No longer eligi ble based on patient's age to complete this topic HPV Vaccines Aged Out No longer eligi ble based on patient's age to complete this topic IPV Vaccines Aged Out No longer eligi ble based on patient's age to complete this topic Meningococcal B Vaccine Aged Out No l onger eligible based on patient's age to complete this topic Meningococcal Vaccine Aged Out No ramón mignon eligible based on patient's age to complete this topic Rotavirus Vaccines Aged Out No longer eligible based on patient's age to complete this topic Care Teams Bedspread Cutter Hand Relationship Specialty Start Date End Date Sandeep Mcclelland DO [place], [place] [id number] PCP - General Internal Medicine 03/19/24
--- OUTSIDE RECORDS SUMMARY | 2024-12-04 14:11 | XMS_ITS | Encounter Summary ---
Author Organization [facility] Address [address] [facility] [place] [address] Care Team Providers Care Pumpman Name Role Phone Patience Jimenez MD Primary Care Provider [phone] González Mcallister DO Unavailable [phone] Encounter Details Date Type Department Care Team (Late st Contact Info) Description 04/29/2024 Abstract [facility] OB [address] [place] [address] Martín Torres DO [address] [facility] [address] Manoj Adrian, [facility] Social History Tobacco Use Types Packs/Day Years [...] How often do you attend chur or restorationist services? Never 03/20/2024 Do you belong to any clubs o r organizations such as restoration groups, unions, fraternal or athletic groups, or [...] and heating? Not hard at all 03/20/2024 [facility] of Occupat ional Health - Occupational Stress [...] any time in the past 12 m [facility], were you homeless or living in a long term (including now)? No 03/20/2024 Comments No Sex [...] Visit [facility] OB [address] [facility] [place] [address] Linda Carrillo PA [address] [facility] [address] [place], [place] [id number] documented as of this encounter Visit Diagnoses Not on filedocumented in this encounter Care Teams Pumpman Relationship Specialty Start Date End Date Patience Jimenez MD PCP - General Family Medicine 03/16/23 González Mcallister DO [address] [place] [address] PCP - Medical [place] [employer] 07/10/16 07/09/99 documented as of this encounter
--- OUTSIDE RECORDS SUMMARY | 2024-12-04 14:11 | XMS_ITS | Clinical Summary ---
Author Organization [facility] Address [address] [place] [address] Care Team Providers Care Instructional Aide Name Role Phone Unavailable Primary Care Provider Unavailabl e Allergies No known active allergies Medications baclofen 10 mg tablet TAKE 1/2 TABLET BY MOUTH 3 TIMES A DAY 03/07/2023 Active LORazepam (ATIVAN) 0.5 mg Take 0.5 mg by mouth. 01/30/2023 Active aspirin, enteric coated (ASPIRIN, ENTERIC COATED) 81 mg EC tablet Take 81 mg by mouth. 03/21/2024 Active busPIRone (BUSPAR) 5 mg tablet Take 5 mg by mouth. 10/11/[address] (PROTONIX) 40 mg tablet Take 40 mg by mouth. 03/22/2024 Active Social History Tobacco Use Types Packs/Day Years [...] is lower risk 4 03/14/2023 Data from: https://www.neighborhoodatlas.medicine.[facility].edu/. Last address used for calculation [address] 03/14/2023 Comments No Sex and Gender Information Value Date Recorded Sex Assigned at Not on file Legal Sex Female 1:53 PM EDT Gender Identity Not on file Sexual Orientation Not on file Last Filed Vital Signs Vital Sign Reading Time Taken Comments Blood Pressure 120/80 04/10/2024 1:24 PM EDT Pulse 77 04/10/2024 1:24 PM EDT Temperature 36.8 C (98.2 F) 04/10/2024 1:24 PM EDT Respiratory Rate - - Oxygen Saturation 97% 04/10/2024 1:24 PM EDT Inhaled Oxygen Concentration - - Weight 64 kg (141 lb 1.5 oz) 05/14/2024 3:18 PM EST Height 160 cm (5' 3 ) 04/10/2024 1:24 PM EDT Body Mass Index 24.99 04/10/2024 1:24 PM EDT Plan of Treatment Health Maintenance Due Date Last Done Comments Anxiety Screening 1988 Depression Screening 1988 HIV Screening 1988 Hepatitis C Screening 1988 DTaP,Tdap,Td Vaccine (1 - Tdap) 1989 Hepatitis B Vaccine (1 of 3 - 19+ 3-dose series) 1989 Cervical Cancer Screening 12/07/1991 CT Colonography 12/07/2015 Colonoscopy 12/07/2015 Fecal Occult Blood 12/07/2015 Lipid Screening 12/07/2015 Sigmoidoscopy 12/07/2015 Pneumococcal Vaccine: 50+ (1 of 1 - PCV) 2020 Shingrix Vaccine (2 of 2) 04/25/2023 02/28/2023 Covid-19 Vaccine (2 - season) 2024 Mammogram Screening 06/12/2024 06/12/2023, Cologuard (FIT-DNA) 06/23/2024 06/23/2021 Colorectal Cancer Screening 06/23/2024 Influenza Vaccine (Season Ended) 2025 Diabetes Screening 04/10/2027 04/10/2024, 01/30/2023 Procedures Procedure Name Priority Date/Time Associated Diagnosis Comments COMPREHENSIVE METABOLIC PANEL Routine 04/10/2024 2:21 PM EDT Abdominal pain, unspecified abdominal location from Last 3 Months or Most Recently Relevant to Health Maintenance Results * COMPREHENSIVE METABOLIC PANEL (04/10/2024 2:21 PM EDT) Protein, Total 7.7 6.3 - 8.0 g/dL 04/10/2024 10:53 PM EDT [facility] Albumin 4.5 3.9 - 4.9 g/dL 04/10/2024 10:53 PM EDT [facility] Calcium, Total 9.6 8.5 - 10.2 mg/dL 04/10/2024 10:53 PM EDT [facility] Bilirubin, Total 0.2 0.2 - 1.3 mg/dL 04/10/2024 10:53 PM EDT [facility] Alkaline Phosphatase 80 34 - 123 U/L 04/10/2024 10:53 PM [facility] AST 26 13 - 35 U/L 04/10/2024 10:53 PM T [facility] ALT 14 7 - 38 U/L 04/10/2024 10:53 PM [facility] Glucose 94 74 - 99 mg/dL 04/10/2024 10:53 PM [facility] Comment: The [place] Diabetes Association (ADA) provides guidance for cutoff [...] Standards of Medical Care in Diabetes 2016, [place] [employer]. Diabetes Care. 2016.39(Suppl 1). BUN 11 7 - 21 mg/dL 04/10/2024 10:53 PM [facility] Creatinine 0.78 0.58 - 0.96 mg/dL 04/10/2024 10:53 PM [facility] Sodium 138 136 - 144 mmol/L 04/10/2024 10:53 PM [facility] Potassium 4.5 3.7 - 5.1 mmol/L 04/10/2024 10:53 PM EDT [facility] Chloride 102 98 - 107 mmol/L 04/10/2024 10:53 PM EDT [facility] CO2 24 22 - 30 mmol/L 04/10/2024 10:53 PM EDT [facility] Anion Gap 12 8 - 15 mmol/L 04/10/2024 10:53 PM EDT [facility] Estimated Glomerular Filtration Rate 91 >=60 mL/min/1.7 3m 04/10/2024 10:53 PM EDT [facility] Comment:Estimated Glomerular Filtration Rate (eGFR) is calculated using the 2020 CKD-EPI creatinine equation. This equation utilizes serum creatinine, sex, and age as parameters. The creatinine assay has traceable calibration to isotope dilution- mass spectrometry. Refer to KDIGO guidelines for clinical interpretation. In patients with unstable renal function, e.g. those with acute kidney injury, the eGFR may not accurately reflect actual GFR. Blood BLOOD SPECIMEN / Unknown Venipuncture / Unknown 04/10/2024 2:21 PM EDT 04/10/2024 2:22 PM EDT us Kyle Beltran MD LABORATORY Final Result [facility] [address] [id number], from Last 3 Months or Most Recently Relevant to Health Maintenance Insurance [facility] PPO
--- OUTSIDE RECORDS SUMMARY | 2024-12-04 14:12 | XMS_ITS | Encounter Summary ---
Author Organization [facility] Address [address] [place] [address] Care Team Providers Care Replenishment Associate Name Role Phone Sandeep Mcclelland DO Primary Care Provider [phone] Encounter Details Date Type Department Care Team (Late st Contact Info) Description 03/12/2024 Orders Only [facility] [address] [place] [id number] Rosaline Abdul, RN Social History Tobacco Use Types Packs/Day Years Used Date Smoking Tobacco: Never Smokeless Tobacco: Never Alcohol Use Standard Drinks/Week Comments Not Asked [...] on filedocumented in this encounter Care Teams Replenishment Associate Relationship Specialty Start Date End Date Sandeep Mcclelland [place] [address] PCP - General Internal Medicine 03/19/24 documented as of this encounter
--- OUTSIDE RECORDS SUMMARY | 2024-12-04 14:12 | XMS_ITS | Encounter Summary ---
Author Organization [facility] Address [address] [facility] [place] [address] Care Team Providers Care Livestock Farmers Name Role Phone Patience Jimenez MD Primary Care Provider [phone] González Mcallister DO Unavailable [phone] Encounter Details Date Type Department Care Team ([facility] Contact Info) Description 03/15/2023 Abstract [facility] OB [address] [facility] [place] [address] Linda Carrillo PA [address] [place] [address] [place] [address] Social History Tobacco Use Types Packs/Day Years Used Date Smoking Tobacco: Never Tobacco Cessation:Counseling Given: Not Answered Alcohol Use Standard Drinks/Week Comments Yes 0 (1 standard drink = 0.6 oz pure alcohol) 1-2 drinks less than monthly in the past year, Caffeine intake: 1-2 cups per day coffee Comments Unknown Sex and Gender Information Value Date Recorded Sex Assigned at Female 03/16/2023 11:27 AM EDT Legal Sex Female 8:01 PM EDT Gender Identity Female 03/16/2023 11:27 AM EDT Sexual Orientation Not on file documented as of this encounter Plan of Treatment Upcoming Encounters Date Type Department Care Team ([facility] Contact Info) Description 05/15/2025 11:00 AM EST Office Visit [facility] OB [address] [facility] [place] [address] Linda Carrillo, PA [address] [place] [address] [place], [facility] documented as of this encounter Visit Diagnoses Not on filedocumented in this encounter Care Teams Livestock Farmers Relationship Specialty Start Date End Date Patience Jimenez MD PCP - General Family Medicine 03/16/23 González Mcallister DO [address] [id number] PCP - Medical [place] [employer] 07/10/16 07/09/99 documented as of this encounter
--- OUTSIDE RECORDS SUMMARY | 2024-12-04 14:12 | XMS_ITS | Referral Summary ---
Author Organization [facility] Address [address] [place] [address] Care Team Providers Care Press Hand Supervisor Name Role Phone Sandeep Mcclelland DO Primary Care Provider [phone] Allergies No known active allergies Medications Medication [...] of right foot 01/31/20 23 Anxiety 01/06/2015 Social History Tobacco Use Types Packs/Day Years [...] 04/08/2024 3:18 PM EDT Plan of Treatment Not on file Care Teams Press Hand Supervisor Relationship Specialty Start Date End Date Sandeep Mcclelland DO [address] [place] [address] PCP - General Internal Medicine 03/19/24
--- OUTSIDE RECORDS SUMMARY | 2024-12-04 14:12 | XMS_ITS | Encounter Summary ---
Author Organization [facility] Address [address] [facility] [place] [address] Care Team Providers Care Film Examiner Name Role Phone Patience Jimenez MD Primary Care Provider [phone] González Mcallister DO Unavailable [phone] Encounter Details Date Type Department Care Team (Late st Contact Info) Description 08/30/2024 Abstract [facility] OB [address] [place] [address] Martín Torres DO [address] [facility] [address] Manoj Adrian, [facility] Social History Tobacco Use Types Packs/Day [...] any clubs o r organizations such as restorationist groups, unions, fraternal or athletic groups, or [...] and heating? Not hard at all 03/20/2024 [facility] of Occupat ional Health - Occupational Stress [...] any time in the past 12 m [facility], were you homeless or living in a long-term (including now)? No 03/20/2024 Comments No Sex [...] EST Office Visit [facility] OB [address] [facility] [place] [address] Linda Carrillo PA [address] [facility] [address] [place], [place] [id number] documented as of this encounter Visit Diagnoses Not on filedocumented in this encounter Care Teams Film Examiner Relationship Specialty Start Date End Date Patience Jimenez MD PCP - General Family Medicine 03/16/23 González Mcallister DO [address] [place] [address] PCP - Medical [place] [employer] 07/10/16 07/09/99 documented as of this encounter
--- OUTSIDE RECORDS SUMMARY | 2024-12-04 14:12 | XMS_ITS | Encounter Summary ---
Author Organization [facility] Address [address] [facility] [place] [address] Care Team Providers Care Third Helper Name Role Phone Patience Jimenez MD Primary Care Provider [phone] González Mcallister DO Unavailable [phone] Encounter Details Date Type Department Care Team (Late st Contact Info) Description 08/30/[address] [facility] OB [address] [place] [address] Martín Torres DO [address] [facility] [address] Manoj Adrian, [facility]11 Social History Tobacco Use Types Packs/Day Years [...] How often do you attend chur or anabaptism services? Never 03/20/2024 Do you belong to any clubs o r organizations such as tenriism groups, unions, fraternal or athletic groups, or [...] and heating? Not hard at all 03/20/2024 [facility] of Occupat ional Health - Occupational [...] any time in the past 12 m [facility], were you homeless or living in a detention (including now)? No 03/20/2024 Comments No Sex [...] EST Office Visit [facility] OB [address] [facility] [place] [address] Linda Carrillo PA [address] [place], [place] [id number] documented as of this encounter Visit Diagnoses Not on filedocumented in this encounter Care Teams Third Helper Relationship Specialty Start Date End Date Patience Jimenez MD PCP - General Family Medicine 03/16/23 González Mcallister DO [address] [place] [address] PCP - Medical [place] [employer] 07/10/16 07/09/99 documented as of this encounter
--- OUTSIDE RECORDS SUMMARY | 2024-12-04 14:12 | XMS_ITS | Encounter Summary ---
Author Organization [facility] Address [address] [facility] [place] [address] Care Team Providers Care Cigar Wrapper Name Role Phone Patience Jimenez MD Primary Care Provider [phone] González Mcallister DO Unavailable [phone] Encounter Details Date Type Department Care Team (Late st Contact Info) Description 08/30/2024 Abstract [facility] OB [address] [place] [address] Martín Torres DO [address] [facility] [address] Manoj Adrian, [facility] Social History Tobacco Use Types Packs/Day Years [...] How often do you attend chur or pentecostalism services? Never 03/20/2024 Do you belong to any clubs o r organizations such as yazidism groups, unions, fraternal or athletic groups, or [...] and heating? Not hard at all 03/20/2024 [facility] of Occupat ional Health - Occupational Stress [...] any time in the past 12 m [facility], were you homeless or living in [...] EST Office Visit [facility] OB [address] [facility] [place] [address] Linda Carrillo PA [address] [facility] [address] [place], [place] [id number] documented as of this encounter Visit Diagnoses Not on filedocumented in this encounter Care Teams Cigar Wrapper Relationship Specialty Start Date End Date Patience Jimenez MD PCP - General Family Medicine 03/16/23 González Mcallister DO [address] [place] [address] PCP - Medical [place] [employer] 07/10/16 07/09/99 documented as of this encounter
--- OUTSIDE RECORDS SUMMARY | 2024-12-04 14:12 | XMS_ITS | Encounter Summary ---
Author Organization [facility] Address [address] [facility] [place] [address] Care Team Providers Care Data Modeler Name Role Phone Patience Jimenez MD Primary Care Provider [phone] González Mcallister DO Unavailable [phone] Encounter Details Date Type Department Care Team (Late st Contact Info) Description 05/24/2024 Orders Only [facility] OB [address] [facility] [place] [address] Adeline CadenaGilbert, [place] [address] [place] [address] Social History Tobacco Use Types Packs/Day Years [...] How often do you attend chur or quaker services? Never 03/20/2024 Do you belong to any clubs o r organizations such as hoahaoism groups, unions, fraternal [...] and heating? Not hard at all 03/20/2024 [facility] of Occupat ional Health - Occupational [...] were you homeless or living in a jail (including now)? No 03/20/2024 Comments No Sex [...] EST Office Visit [facility] OB [address] [facility] [place] [address] Linda Carrillo PA [address] [place], [place] [id number] documented as of this encounter Procedures Procedure Name Priority Date/Time Associated Diagnosis Comments PAP SMEAR Routine 05/13/2024 12:00 AM EST documented in this encounter Results * Pap Smear (05/13/2024 12:00 AM EST) Swab Cervical swab / Unknown us [facility] CYTOLOGY ORDERABLES Final Re sult EXTERNAL LAB documented in this encounter Visit Diagnoses Not on filedocumented in this encounter Care Teams Data Modeler Relationship Specialty Start Date End Date Patience Jimenez MD PCP - General Family Medicine 03/16/23 González Mcallister DO [address] [facility] [address] [place] [address] PCP - Medical [place] [employer] 07/10/16 07/09/99 documented as of this encounter
--- OUTSIDE RECORDS SUMMARY | 2024-12-04 14:12 | XMS_ITS | Encounter Summary ---
Author Organization [facility] Address [address] [facility] [place] [address] Care Team Providers Care Manager Gallery Name Role Phone Patience Jimenez MD Primary Care Provider [phone] González Mcallister DO Unavailable [phone] Encounter Details Date Type Department Care Team (Late st Contact Info) Description 08/16/2024 Abstract [facility] OB [address] [place] [address] Martín Torres DO [address] [facility] [address] Manoj Adrian, [facility]11 Social History Tobacco Use Types Packs/Day [...] How often do you attend chur or voodoo services? Never 03/20/2024 Do you belong to any clubs o r organizations such as quaker groups, unions, fraternal or athletic groups, or [...] and heating? Not hard at all 03/20/2024 [facility] of Occupat ional Health - Occupational [...] any time in the past 12 m [facility], were you homeless or living in a fpc (including now)? No 03/20/2024 Comments No Sex [...] EST Office Visit [facility] OB [address] [facility] [place] [address] Linda Carrillo PA [address] [facility] [address] [place], [place] [id number] documented as of this encounter Visit Diagnoses Not on filedocumented in this encounter Care Teams Manager Gallery Relationship Specialty Start Date End Date Patience Jimenez MD PCP - General Family Medicine 03/16/23 González Mcallister DO [address] [place] [address] PCP - Medical [place] [employer] 07/10/16 07/09/99 documented as of this encounter
--- OUTSIDE RECORDS SUMMARY | 2024-12-04 14:12 | XMS_ITS | Clinical Summary ---
Author Organization [facility] Address [address] [place] [address] Care Team Providers Care City Comptroller Name Role Phone Patience Jimenez MD Primary Care Provider [phone] González Mcallister DO Unavailable [phone] Allergies No known active allergies Medications Tretinoin (Altreno) 0.05 % lotionIndicati ons:Rhytides Apply thin layer to face at bedtime 45 g 11 4 Active busPIRone (Buspar) 5 MG tablet Take by mouth twice a day 4 Active LORazepam (Ativan) 0.5 MG tablet Take 0.5 mg by mouth every 6 (six) hours if needed Active aspirin 81 MG EC tablet Daily 4 Active estradiol (Estrace) 0.5 MG tabletIndicati ons:Vaginal dryness TAKE 1 TABLET DAILY 90 tablet 3 5 Active estradiol (Estrace) 0.5 MG tabletIndicati ons:Vaginal dryness Take 1 tablet (0.5 mg) by mouth Daily 90 tablet 3 4 11/06/19 25 Discontinued Active Problems Problem Noted Date Diagnosed Date Complex ovarian cyst 07/01/2024 Pelvic pain in female 07/01/2024 Encounter to discuss test results 07/01/2024 Well woman exam with routine gynecological exam 05/13/2024 Encounters Date Type Department Care Team Description 11/05/2024 Refill [facility] [address] [place] [address] [place] [phone] Martín Torres DO Vaginal dryness 10/03/2024 Telephone [facility] [address] [place] [phone] Martín Torres DO 09/09/2024 3:40 PM EST Office Visit [facility] [address] [place] [phone] Martín Torres DO Postoperative follow-up 09/09/2024 Bamboo flowsheet [facility] [address] [place] [phone] Martín Torres DO 09/09/2024 Travel from Last 3 Months Immunizations Immunization Administration Dates Next Due Zoster, Recombinant 02/28/2023 Family History Medical History Relation Name Comments Heart disease Father Melanoma Neg Hx Relation Name Status Comments Daughter 1 Father Mother Alive Sister 4 Son 2 Social History Tobacco Use Types Packs/Day Years [...] 03/20/2024 How often do you attend chur ch or restorationist services? Never 03/20/2024 Do you belong to any clubs o r organizations such as druze groups, unions, fraternal or athletic groups, or [...] and heating? Not hard at all 03/20/2024 [facility] ional Health - Occupational Stress [...] any time in the past 12 m [facility], were you homeless or living in a fci (including now)? No 03/20/2024 Comments No Sex and Gender Information Value Date Recorded Sex Assigned at Female 03/16/2023 11:27 AM EDT Legal Sex Female 8:01 PM EDT Gender Identity Female 03/16/2023 11:27 AM EDT Sexual Orientation Not on file Last Filed Vital Signs Vital Sign Reading Time Taken Comments Blood Pressure 114/80 09/09/2024 3:59 PM EST Pulse 81 03/22/2024 9:49 AM EDT Temperature 36.4 C (97.5 F) 03/22/2024 9:49 AM EDT Respiratory Rate - - Oxygen Saturation 98% 03/22/2024 9:49 AM EDT Inhaled Oxygen Concentration - - Weight 66.6 kg (146 lb 12.8 oz) 09/09/2024 3:59 PM EST Height 160 cm (5' 3 ) 03/22/2024 9:49 AM EDT Body Mass Index 26 03/22/2024 9:49 AM EDT Plan of Treatment Upcoming Encounters Date Type Department Care Team (Late st Contact Info) Description 05/15/2025 11:00 AM EST Office Visit [facility] [address] [place] [address] Linda Carrillo PA [address] [place] [address] Health Maintenance Due Date Last Done Comments CT Colonography 1970 Colonoscopy 1970 FIT 1970 FOBT 1970 Sigmoidoscopy 1970 Colorectal Cancer Screening 06/23/2024 FIT-DNA 06/23/2024 06/23/2021 Influenza Vaccine (Season Ended) 2025 Mammogram 08/01/2025 08/01/2024, 06/12/2023 HPV/Cotest Discontinued 04/06/2023 Cervical Cancer Screening Discontinued Pap Smear Discontinued 05/13/2024 Procedures Procedure Name Priority Date/Time Associated Diagnosis Comments BI MAMMOGRAM SCREENING TOMOSYNTHESIS BILATERAL Routine 08/01/2024 8:36 AM EST Well woman exam with routine gynecological exam Other screening mammogram PAP SMEAR Routine 05/13/2024 12:00 AM EST THINPREP PAP AND HPV MRNA E6/E7 W/RFL HPV 16,18/45 Routine 04/06/2023 4:08 PM EDT Well woman exam with routine gynecological exam from Last 3 Months or Most Recently Relevant to Health Maintenance Results * Bilateral screening mammogram with tomosynthesis (08/01/2024 8:36 AM EST) Anatomical Region Laterality Modality Breast Bilateral Mammography 08/01/2024 10:2 5 AM EST Impressions 08/01/2024 10:36 AM EST Impression: No specific evidence of malignancy seen in either breast. BIRADS 2 - Benign Findings DENSITY: There are scattered areas of fibroglandular density. FOLLOW-UP: Routine Screening Mammogram ELECTRONICALLY SIGNED BY: Sebastien Guajardo M.D. Narrative 08/01/2024 10:36 AM EST Examination: BI MAMMOGRAM SCREENING TOMOSYNTHESIS BILATERAL Clinical History: screening mammogram Technique: Screening digital mammography study of both breasts was performed with 2-D and 3-D tomosynthesis imaging. Study was compared to the prior exam dated 06/12/2023. Findings: There is no evidence of interval dominant spiculated mass, grouped microcalcifications, or skin thickening which would be suggestive of malignancy. A few benign-appearing calcifications are seen bilaterally. Procedure Note Sebastien Guajardo MD - 08/01/2024 Examination: BI MAMMOGRAM SCREENING TOMOSYNTHESIS BILATERAL Clinical History: screening mammogram Technique: Screening digital mammography study of both breasts wasperformed with 2-D and 3-D tomosynthesis imaging. Study was compared tothe prior exam dated 06/12/2023. Findings: There is no evidence of interval dominant spiculated mass,grouped microcalcifications, or skin thickening which would be suggestiveof malignancy. A few benign-appearing calcifications are seen bilaterally. IMPRESSION: Impression: No specific evidence of malignancy seen in either breast. BIRADS 2 - Benign Findings DENSITY: There are scattered areas of fibroglandular density. FOLLOW-UP: Routine Screening Mammogram ELECTRONICALLY SIGNED BY: Sebastien Guajardo M.D. [facility] BI PROCEDURES Final Result * Pap Smear (05/13/2024 12:00 AM EST) Swab Cervical swab / Unknown us [facility] CYTOLOGY ORDERABLES Final Re sult Performing Organization Address City/[facility]/ZIP Co de Phone Number EXTERNAL LAB * THINPREP PAP AND HPV MRNA E6/E7 W/RFL HPV 16,18/45 (04/06/2023 4:08 PM EDT) us [facility] BLOOD ORDERABLES Final Resul t Performing Organization Address City/[facility]/ZIP Co de Phone Number EXTERNAL LAB from Last 3 Months or Most Recently Relevant to Health Maintenance Insurance [employer] Care Teams City Comptroller Relationship Specialty Start Date End Date Patience Jimenez MD PCP - General Family Medicine 03/16/23 González Mcallister DO [address] [facility] [address] [phone] PCP - Medical [employer] 07/10/16 07/09/99
--- NOTE | 2024-12-04 14:49 | P.CN_ITS ---
Consult Note: HPI Data of Consult Patient: known to practice within the last 3 years Requesting Physician: Skye Marc NP Primary Care Provider: DANAY BLACKMON Consult Narrative Reason for consult: back pain Narrative: Missy Gallagher a pleasant 53 year old female presents for evaluation of thoracic and subscapular pain. noting pain well controlled since last visit with PRN tylenol, naproxen, ibuprofen, lorazepam, and baclofen. denies side effects. pain today 2-3/10 in left lateral rib cage and under shoulder blade increasing t o 4/10 with activity. 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 - Malformation of coronary vessels (ICD-10) Coronary artery disease ?I25.10 - Atherosclerotic heart disease of [place] coronary artery without angina pectoris (ICD-10) Abnormal stress test ?R94.39 - Abnormal result of other cardiovascular function study (ICD-10) Myalgia ?M79.10 - Myalgia, unspecified site (ICD-10) Thoracic radiculopathy ?M54.14 - Radiculopathy, thoracic region (ICD-10) Thoracic back pain ?M54.6 - Pain in thoracic spine (ICD-10) Neuritis ?M79.2 - Neuralgia and neuritis, unspecified (ICD-10) Piriformis syndrome of right side ?G57.01 - Lesion of sciatic nerve, right lower limb (ICD-10) Bilateral calf pain ?M79.661 - Pain in right lower leg (ICD-10) ?M79.662 - Pain in left lower leg (ICD-10) Anxiety ?F41.9 - Anxiety disorder, unspecified (ICD-10) Constipation ?K59.00 - Constipation, unspecified (ICD-10) GERD (gastroesophageal reflux disease) ?K21.9 - Gastro-esophageal reflux disease without esophagitis (ICD-10) Surgical History (Updated 08/15/24 @ 15:14 by Allison Tello) History of cardiac catheterization ?Z98.890 - Other specified postprocedural states (ICD-10) Hx of endoscopy ?Z98.890 - Other specified postprocedural states (ICD-10) History of foot surgery ?Z98.890 - Other specified postprocedural states (ICD-10) History of hysterectomy ?Z90.710 - Acquired absence of both cervix and uterus (ICD-10) Previous section ?Z98.891 - History of uterine scar from previous surgery (ICD-10) Family History (Updated 08/15/24 @ 14:20 by Allison Tello) Other Family history of breast cancer Family history of coronary artery disease Family history of heart disease Family history of hypertension Family history of myocardial infarction Social History (Updated 08/15/24 @ 14:18 by Allison Tello) Within the past year, how often did you have a drink containing alcohol: monthly or less Smoking status: Never smoker Non-prescribed substance use details: marijuana edibles 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 Highest level of school completed/degree received: Bachelor's degree Meds Home Medications and Allergies Home Medications ?Medication ?Instructions ?Recorded ?Confirmed ?Type baclofen 10 mg tablet 10 mg PO DAILY PRN muscle sp asm 09/12/23 08/30/24 Rx #90 tabs aspirin 81 mg chewable tablet 81 mg PO DAILY 08/15/24 08/30/24 History ([facility]) buspirone 5 mg tablet 15 mg PO BID 08/15/24 History estradiol 0.5 mg tablet 0.5 mg PO DAILY 08/15/24 History lorazepam 0.5 mg tablet 0.5 mg PO Q6H PRN anxiety 08/30/24 History pantoprazole 40 mg tablet,delayed 40 mg PO DAILY 08/1508/30/24 History release hydrocodone 5 mg-acetaminophen 325 1 tab PO Q4H PRN pa in 4 days #16 08/30/24 Rx mg tablet tabs ibuprofen 800 mg tablet 800 mg PO Q8H PRN pain 14 da ys #40 08/30/24 Rx tabs Allergies Allergy/AdvReac Type Severity Reaction Status Date / Time No Known Drug Allergies Allergy Verified 08/15/24 14:01 Exam Constitutional Documenting provider has reviewed patient's vital signs: yes Common normals: no apparent distress, oriented x3, healthy appearing, alert and well nourished General appearance: cooperative HENMT Common normals: normocephalic, hearing grossly normal bilaterally and moist oral mucous membranes Head and scalp: normocephalic Eye Common normals: PERRL Pupil: PERRL Neck & C-Spine Common normals: full ROM General: normal visual inspection Chest Common normals: inspection of chest normal Respiratory Common normals: normal respiratory effort, no retractions and no use of accessory muscles Back & Pelvis Thoracic spine/upper back: thoracic spinal tenderness and paraspinal muscle tenderness Thoracic paraspinal muscle tenderness: left Other: notable trapezius and subscapular pain to left side no identifiable trigger points Neuro Common normals: oriented x3 Sensorium/orientation: alert Psych Common normals: mental status grossly normal, thought process normal, cooperative, affect normal, speech normal and activity/motor behavior normal Speech: normal speech Thought process: normal thought process Results Additional Findings Additional findings: If on a controlled substance or opioids, I have checked an OARRS report on this patient and there are no aberrancies noted in the prescribing history.??If on a controlled substance or opioid a drug screen was completed and reviewed within the last year, and if there has not been a drug screen completed we ordered one today to monitor higher risk, state monitored pain medication use. As part of providing excellent, safe, comprehensive care, the following was completed at our patient's visit: 1. A medication reconciliation and review to ensure accurate knowledge of current/active medications, including asking our patients to inform us about any iajx-uys-jqoftke medications or herbal remedies/nutritional supplements/alternative remedies. 2. A review to specifically ensure our patients have had annual screening for screening for depression, screening for tobacco use, and screening for unhealthy alcohol use. For concerning screenings had a discussion with the patient, provided patient education, and recommended follow-up with primary care provider when appropriate. If patient noted with a risk of falling, they received education on strength, gait, and balance training to prevent future risk of falling. Portions of this note may have been carried over from the previous visit and updated as appropriate. Please note this office utilizes paper charting in addition to the electronic medical record. A list of current medications, vitals, and PMH is available there as the clinical staff outside of myself do not have access to [employer] charting during the clinic day operations. As part of providing quality comprehensive care the current medications, vitals, and PMH were reviewed in the paper chart. Assessment and Plan Assessment and Plan (1) Thoracic back pain: (2) Thoracic radiculopathy: (3) Myalgia, other site: Plan encouraged HEP for stretching and strengthening of left trapezius and subscapula increase baclofen 5-10mg TID PRN pain/spasms f/u 6 months, sooner if needed
== END 2024-12-04 14:11 | disposition home or self-care (01) ==
PROVIDERS: PCP Nurse Practitioner Family; Visit Provider Nurse Practitioner
DX: M54.6 Pain in thoracic spine (principal); M54.16 Radiculopathy, lumbar region; M79.18 Myalgia, other site
CPT/HCPCS: G0463

== ENCOUNTER 2025-02-28 07:24 | Outpatient (OUT) | payer OTHER, SELFPAY ==
--- OUTSIDE RECORDS SUMMARY | 2025-02-20 11:30 | XMS_ITS | Encounter Summary ---
Author Organization [facility] Address [address] [facility] [place] [address] Care Team Providers Care Meat Team Member Name Role Phone Patience Jimenez MD Primary Care Provider [phone] González Mcallister DO Unavailable [phone] Reason for Visit * Reason Comments Hormone therapy replacement Encounter Details Date Type Department Care Team (Late Contact Info) Description 02/20/2025 11:30 AM EDT Office Visit [facility] [address] [address] Allison Tello, FAVIAN [address] [place] [address] Hormone disorder (Primary Dx); Postmenopausal HRT (hormone replacement therapy) Social History Tobacco Use Types Packs/Day Years [...] often do you attend chur ch or gnosticist services? Never 03/20/2024 Do you belong to any clubs o r organizations such as yazdanism groups, unions, fraternal or athletic groups, or [...] and heating? Not hard at all 03/20/2024 [facility] of Occupat ional Health - Occupational Stress [...] any time in the past 12 m [facility], were you homeless or living in a longterm (including now)? No 03/20/2024 Comments No Sex and Gender Information Value Date Recorded Sex Assigned at Female 03/16/2023 11:27 AM EDT Legal Sex Female 8:01 PM EDT Gender Identity Female 03/16/2023 11:27 AM EDT Sexual Orientation Not on file documented as of this encounter Last Filed Vital Signs Vital Sign Reading Time Taken Comments Blood Pressure 100/70 02/20/2025 11:37 AM EDT Pulse - - Temperature - - Respiratory Rate - - Oxygen Saturation - - Inhaled Oxygen Concentration - - Weight 65.5 kg (144 lb 6.4 oz) 02/20/2025 11:37 AM EDT Height - - Body Mass Index 25.58 03/22/2024 9:49 AM EDT documented in this encounter Progress Notes * Allison Tello NP - 02/20/2025 11:30 AM EDT Reason for Appointment: Patient ID: Trinity Gallagher is a 54 y.o. female who presents for Hormone therapy replacement Patient presents today for Consult appointment. MEDICATIONS Current Outpatient Medications Medication Instructions busPIRone (Buspar) 5 MG tablet 2 times daily estradiol (Climara) 0.025 MG/24HR 1 patch, Transdermal, Weekly progesterone (PROMETRIUM) 100 mg, Oral, Daily ALLERGIES No Known Allergies PROBLEMS Active Ambulatory Problems Diagnosis Date Noted Well woman exam with routine gynecological exam 05/13/2024 Complex ovarian cyst 07/01/2024 Pelvic pain in female 07/01/2024 Encounter to discuss test results 07/01/2024 Resolved Ambulatory Problems Diagnosis Date Noted No Resolved Ambulatory Problems Past Medical History: Diagnosis Date Kidney stone Myocardial bridge (HCC) HISTORY PAST MEDICAL HISTORY SOCIAL HISTORY Past Medical History: Diagnosis Date Kidney stone Myocardial bridge (HCC) Social History Tobacco Use Smoking status: Never [...] Review of Systems: Review of Systems Constitutional: Positive for unexpected weight change. Anxiety that patient feels is related to her hormones. HENT: Negative. Eyes: Negative. Respiratory: Negative. Cardiovascular: [...] nursing note reviewed. Exam conducted with a loan closer present. Vitals: Estimated body mass index is 25.58 kg/m?? as calculated from the following: Height as of 03/22/24: 5' 3 . Weight as of this encounter: 144 lb 6.4 oz. BP: 100/70 No LMP recorded (lmp unknown). Patient has had a hysterectomy. ASSESSMENT & PLAN ICD-10-CM 1. Hormone disorder E34.9 TESTOSTERONE, FREE Testosterone, free, total 2. Postmenopausal HRT (hormone replacement therapy) Z79.890 progesterone (Prometrium) 100 MG capsule estradiol (Climara) 0.025 MG/24HR Patient reports that she thinks that she needs to change something with her hormones . She reportsweight gain and anxiety. She has a history of hysterectomy with one remaining ovary that has not been able to be visualized on recent imaging. We discussed treatment options today and she would like to discontinue the oral estrogen and begin the climara patch and add micronized progesterone that may help with mood stabilization. We discussed testosterone as well and will obtain free testosterone levels for possible compounding with [facility] for replacement if levels warrant treatment. Patient toschedule follow up tele visit in 6 weeks. Documented by Allison Tello NP on behalf of: Allison Tello NP documented in this encounter Plan of Treatment Upcoming Encounters Date Type Department Care Team (Late st Contact Info) Description 04/03/2025 9:00 AM EDT Office Visit [facility] [address] [place] [phone] Allison Tello NP [address] [place] [phone] 05/15/2025 11:00 AM EST Office Visit [facility] [address] [place] [address] Linda Carrillo PA [address] [place] [address] Scheduled Orders Name Type Priority Associated Diagnoses Orde r Schedule TESTOSTERONE, FREE Lab Routine Hormone disorder Ordered: 02/20/2025 Testosterone, free, total Lab Routine Hormone disorder Ordered: 02/20/2025 documented as of this encounter Visit Diagnoses Diagnosis Hormone disorder- Primary Unspecified endocrine disorder Postmenopausal HRT (hormone replacement therapy) Need for prophylactic hormone replacement therapy (postmenopausal) documented in this encounter Care Teams Meat Team Member Relationship Specialty Start Date End Date Patience Jimenez MD [address] [place] [phone] PCP - General Family Medicine 03/16/23 González Mcallister DO [address] [address] [place] [address] PCP - Medical [employer] 07/10/16 07/09/99 documented as of this encounter
--- OUTSIDE RECORDS SUMMARY | 2025-02-28 07:28 | XMS_ITS | CCD ---
Author Organization [facility] Care Team Providers Care Oyster Washer Name Role Phone DR AGUSTIN MORTENSEN Primary Care Unavailable LAKSHMIPATHY ., NARENDRANATH Admitting Mariella vailable LAKSHMIPATHY ., NARENDRANATH Consulting Mariella vailable LAKSHMISHMAU ., CRYSTALATH Attending Mariella brookilable LORRI BERRY [...] Provider Agustin Mortensen MD Primary Care Provider [phone] Nidaer, Kyle Referring Unavailable Nidaer, Kyle Attending Unavailable MARSHA LANDA Attending Unavailable LANDAMARSHA Attending Unavailable Lashner, Kyle Referring Unavailable Lashner, Kyle Referring Unavailable ALINAHOHORACIO, MOHAMAD Attending Unavailable ALGHOTHANI, MOHAMAD Referring Unavailable ALGHOTHANI MOHAMAD Attending Unavailable ALGHOTHANI, MOHAMAD Admitting Unavailable RAFAT MOHAMAD Attending Unavailable Blanka Aguirre DO Unavailable Martín Torres DO Attending Provider [phone] Martín Torres Attending Unavailable Palomo Torresy Admitting Unavailable Rohrbacher, Genevieve Admitting Unavailable NO FAMILY, PHYSICIAN Primary Care Unavailable Rohrbacher, Genevieve Attending Unavailable Rohrbacher, Genevieve Primary Care Unavailable Lakshmipathy, Narendranath Attending Unava ilable Lakshmipathy, Narendranath Admitting Unava ilable Rohrbacher, Genevieve Primary Care Unavailable Ly, Lady L Attending Unavailable Ly, Lady L Admitting Unavailable Martín Torres DO Attending Provider Agustin Mortensen MD Primary Care Provider [phone] MARTÍN TORRES Attending Unavailable LINDA CARRILLO Referring Unavailable SWETA ALANIZ Attending Unavailable MARSHA LANDA Referring Unavailable GUNDLACH, BLANKA Tiwari Attending Unavailable SYEDA MARSHA Referring Unavailable MARTÍN TORRES Attending Unavailable TERESSA TELLO Attending Unavailable LINDA CARRILLO Attending Unavailable TONI LINDA Referring Unavailable PETZNICKBLANKA Attending Unavailable PETBLANKA WASHINGTON Referring Unavailable TONI LINDA Attending Unavailable GUNDLACH, BLANKA Tiwari Attending Unavailable GUNDLACH, BLANKA Karie Referring Unavailable GUNDLACH, BLANKA Tiwari Attending Unavailable GUNDLACH, BLANKA Karie Referring Unavailable GUNDLACH, BLANKA D Attending Unavailable [...] Attending Unavailable GUNDLACH, BLANKA D Referring Unavailable BRIANPALOMOY Attending Unavailable GUNDLACH, BLANKA Tiwari Attending Unavailable GUNDLACH, BLANKA D Referring Unavailable GUNDLACH, BLANKA D Attending Unavailable BLANKA SHAW Referring Unavailable BLANKA SHAW Attending Unavailable MARSHA LANDA Referring Unavailable BLANKA SHAW Attending Unavailable MARSHA LANDA Referring Unavailable SWETA ALANIZ Attending Unavailable MARSHA LANDA Referring Unavailable Medications Current Medications Medication Drug Class(es) Dates Sig (Normalized) Sig (Original) aspirin 81 mg delayed release oral tablet (20 sources) Platelet Aggregation Inhibitor, Nonsteroidal Anti-inflammatory Drug Start: 03-21-2024 End: 02-20-2025 aspirin 81 MG EC tablet Daily 03/21/2024 02/20/2025 Discontinued busPIRone hydrochloride 10 mg oral tablet (20 sources) Start: 09-25-2024 take 1 tablet by mouth twice daily Buspirone 10 mg tablet Active 10 MG PO Twice daily 180 90 September 25, 2024 3:52pm Start: 08-07-2024 End: 09-25-2024 Buspirone 5 mg tablet Discon tinued 0 .ROUTE .COMPLEX 180 August 07, 2024 12:07pm September 25, 2024 3:53pm TAKE 1 TABLET TWICE DAILY Start: 05-01-2024 End: 08-07-2024 Buspirone 5 mg tablet Discon tinued 0 .ROUTE .COMPLEX 180 May 01, 2024 2:31pm August 07, 2024 12:07pm TAKE 1 TABLET TWICE DAILY Start: 05-01-2024 End: 08-07-2024 Buspirone 5 mg tablet Discon tinued 0 .ROUTE .COMPLEX 180 May 01, 2024 1:31pm August 07, 2024 11:07am TAKE 1 TABLET TWICE DAILY Start: 05-01-2024 Buspirone Acti ve 0 .ROUTE [...] contrast guidelines. 1 Each 04/10/2024 04/11/2024 Active 168 hr estradiol 0.89429 mg/hr transdermal system (20 sources) Estrogen Start: 02-20-2025 End: 02-20-2026 estradiol (Climara) 0.025 MG/24HR Indications: Postmenopausal HRT (hormone replacement therapy) Place 1 patch over 7 days on the skin 1 (one) time per week 12 patch 3 02/20/2025 02/20/2026 Active Start: 02-20-2025 estradiol (Est race) 0.1 MG/GM vaginal cream Indications: Postmenopausal HRT (hormone replacement therapy) 2g vaginal daily for 2 weeks, then 2 times weekly following initial 2 weeks 42.5 g 02/20/2025 Active Start: 02-20-2025 estradiol (Est race) 0.1 MG/GM vaginal cream Indications: Postmenopausal HRT (hormone replacement therapy) 2g vaginal daily for 2 weeks, then 2 times weekly following initial 2 weeks 42.5 g 02/20/2025 Active Start: 11-05-2024 End: 02-20-2025 estradiol (Estrace) 0.5 MG t ablet Indications: Vaginal dryness TAKE 1 TABLET DAILY 90 tablet 3 11/05/2024 02/20/2025 Discontinued Start: 04-19-2023 End: 09-27-2024 take 1 tablet by mouth once daily estradiol (Estrace) 0.5 MG tablet Indications: Vaginal dryness Take 1 tablet (0.5 mg) by mouth Daily 90 tablet 3 09/28/2023 09/27/2024 Active estrogens, conjugated (care home) 0.625 mg/ml vaginal cream (3 sources) Estrogen [...] (20 sources) Benzodiazepine Start: 01-30-2023 End: 03-05-2024 take 1 tablet by mouth once daily as needed for anxiety Lorazepam (Ativan) 0.5 mg tablet Active 0.5 MG PO Daily as needed for anxiety September 14, 2023 1:00am End: 02-20-2025 take 1 tablet by mouth every six hours as needed LORazepam (Ativan) 0.5 MG tablet Take 0.5 mg by mouth every 6 (six) hours if needed 02/20/2025 Discontinued Comment on above: Take 0.5 mg by mouth . 24 hr metoprolol succinate 25 mg extended release oral tablet (5 sources) beta-Adrenergic Jose Start: End: take 1 tablet by mouth every twenty-four hours in the morning metoprolol succinate XL (Toprol-XL) 25 MG 24 hr tablet Take 25 mg by mouth in the morning. 03/18/2024 05/13/2024 Discontinued (Other) pantoprazole 40 mg delayed release oral tablet (20 sources) Proton Pump Inhibitor Start: End: take 1 tablet by mouth before mealtime pantoprazole (ProtoNix) 40 MG EC tablet Indications: Gastroesophageal reflux disease, unspecified whether esophagitis present Take 1 tablet (40 mg) by mouth in the morning. Take before meals. 90 tablet 1 04/24/2024 10/21/2024 Active predniSONE 50 mg oral tablet (1 source) Start: End: predniSONE (DELTASONE) 50 mg Take 50 mg by mouth. 0 03/16/2023 03/21/2023 Active Comment on above: Take 50 mg by mouth. progesterone 100 mg oral capsule (2 sources) Progesterone Start: End: take 1 capsule by mouth once daily progesterone (Prometrium) 100 MG capsule Indications: Postmenopausal HRT (hormone replacement therapy) Take 1 capsule (100 mg) by mouth Daily 30 capsule 11 02/20/2025 02/20/2026 Active rosuvastatin calcium 20 mg oral tablet (5 sources) HMG-CoA Reductase Inhibitor Start: End: take 1 tablet by mouth in the morning rosuvastatin (Crestor) 20 MG tablet Take 20 mg by mouth in the morning. 03/18/2024 05/13/2024 Discontinued (Other) tretinoin 0.5 mg/ml topical lotion (20 sources) Retinoid Start: End: Tretinoin (Altreno) 0.05 % lotion Indications: Rhytides Apply thin layer to face at bedtime 45 g 11 10/26/2023 02/20/2025 Discontinued Completed/Discontinued Medications Medication Drug Class(es) Dates Sig (Normalized) Sig (Original) baclofen 5 mg oral tablet (20 sources) gamma-Aminobutyri c Acid-ergic Agonist Start: 05-01-2024 End: 09-25-2024 take 1 tablet by mouth three times daily Baclofen 5 mg tablet Discontinued 5 MG PO Three times daily May 01, 2024 12:00am September 25, 2024 9:38am Start: 09-14-2023 End: 10-12-2023 take 1 tablet by mouth once daily Baclofen 10 mg tablet Discontinued 10 MG PO Daily September 14, 2023 1:00am October 12, 2023 8:30am Start: 03-07-2023 End: 03-05-2024 take 0.5 tablet by mouth three times daily baclofen 10 mg tablet TAKE 1/2 TABLET BY MOUTH 3 TIMES A DAY 03/07/2023 Active Comment on above: TAKE 1/2 TABLET BY OUT 3 TIMES A DAY fluconazole 150 mg oral tablet (6 sources) Azole Antifungal Start: End: Fluconazole 150 mg tablet Discontinued 150 MG PO Daily 5 April 05, 2024 12:00am May 01, 2024 9:03am Take 1st dose at onset of symptoms then repeat in 3 days if continued symptoms phenazopyridine hydrochloride 200 mg oral tablet (9 sources) Start: End: take 1 tablet by mouth three times daily Phenazopyridine (Pyridium) 200 mg tablet Discontinued 200 MG PO Three times daily April 02, 2024 12:00am May 01, 2024 9:04am sulfamethoxazole 800 mg / trimethoprim 160 mg oral tablet (9 sources) Dihydrofolate Reductase Inhibitor Antibacterial, Sulfonamide Antimicrobial Start: End: take 1 tablet by mouth twice daily Sulfamethoxazole-Trime thoprim (Bactrim Ds) 800-160 mg tablet Discontinued 1 TAB PO Twice daily 14 April 02, 2024 12:00am May 01, 2024 9:04am Problems Active Problems Problem Classification Problem Date Documented Da te Episodic/Chronic Anxiety disorders (20 sources) Anxiety; Translations: [Anxiety disorder, unspecified] Onset: 09-14-2023 Chronic Cardiac and circulatory congenital anomalies (15 sources) Myocardial bridge of coronary artery; 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] 03-21-2024 Chronic Cardiac dysrhythmias (20 sources) Palpitations; Translations: [Palpitations] 10-12-2023 Episodic Complications of surgical procedures or medical care (2 sources) Postsurgical menopause; 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] 05-13-2024 Chronic Conditions associated with dizziness or vertigo (20 sources) Dizziness; Translations: [Dizziness and giddiness] 02-19-2024 Episodic Esophageal disorders (2 sources) Gastroesophageal reflux disease; Translations: [Gastro-esophageal reflux disease without esophagitis] 03-22-2024 Chronic Menopausal disorders (2 sources) Postmenopausal state; Translations: [Hormone replacement therapy] 02-20-2025 Episodic Mycoses (6 sources) Candidiasis of mouth; Translations: [Candidal stomatitis] 04-05-2024 Episodic Nonspecific chest pain (20 sources) Tight chest; Translations: [Other chest pain] Onset: 4 02-19-2024 Episodic Other aftercare (2 sources) Surgical follow-up; Translations: [Encounter for follow-up examination after completed treatment for conditions other than malignant neoplasm] 09-09-2024 Episodic Other connective tissue disease (3 sources) Pain in right leg; Translations: [PAIN IN RIGHT LEG] Onset: 3 Episodic Other connective tissue disease (1 source) Pain in right lower limb; Translations: [Pain in right leg] 06-21-2023 Episodic Other endocrine disorders (2 sources) Disorder of endocrine system; Translations: [Endocrine disorder, unspecified] 02-20-2025 Episodic Other gastrointestinal disorders (11 sources) Abdominal bloating; Translations: [Abdominal distension (gaseous)] [...] conditions (not mental disorders or infectious disease) (17 sources) Encounter for screening for lipoid disorders; Translations: [Screening for lipoid disorders] Onset: 4 10-12-2023 Episodic Residual codes; unclassified (12 sources) Family history of cardiovascular disease in [...] myelopathy or radiculopathy, thoracic region] 05-14-2024 Chronic Urinary tract infections (16 sources) Urinary tract infectious disease; Translations: [Urinary tract infection, site not specified] Onset: 04-02-2024 Episodic Past or Other Problems Problem Classification Problem Date Documented Da te Episodic/Chronic Abdominal pain (20 sources) Abdominal pain; Translations: [Unspecified abdominal pain] Onset: 04-10-2024 02-26-2024 Episodic Administrative/social admission (2 sources) Follow-up status; Translations: [Person consulting for explanation of examination or test findings] 03-05-2024 Episodic Ovarian cyst (20 sources) Complex ovarian cyst; Translations: [Other ovarian cyst, unspecified side] Onset: 07-01-2024 07-01-2024 Episodic Residual codes; unclassified (20 sources) Patient encounter status; Translations: [Encounter for cosmetic surgery] Onset: 07-01-2024 03-20-2023 Episodic Spondylosis; intervertebral disc disorders; other back problems (20 sources) Radiculopathy, lumbar region; Translations: [Pain in thoracic spine] Onset: 10-26-2022 05-17-2024 Episodic Results Test Name Value Interpretation Reference Range Facility ALL CBC WITH AUTO DIFFon BASOPHILS ABSOLUTE AUTO 0 [facility] Basophils/100 WBC (Bld) 0.8 % 0.2 - 2.0 % [facility] Eosinophils/100 WBC (Bld) 2.1 % 0.9 - 7.0 % [facility] Erythrocyte distribution width (RBC) [Ratio] 12.2 % 11.0 - 15.0 % [facility] Hematocrit (Bld) [Volume fraction] 39.4 % 36.0 - 48.0 % [facility] Hemoglobin (Bld) [Mass/Vol] 13.3 g/dL 12.0 - 16.0 g/dL [facility] IMMATURE GRANULOCYTES ABS AUTO 0 [facility] Immature granulocytes/100 WBC (Bld) 0 % 0.0 - 0.5 % [facility] LYMPHOCYTES ABSOLUTE AUTO 1.6 [facility] Lymphocytes/100 WBC (Bld) 33.4 % 20.5 - 60.0 % [facility] MCH (RBC) [Entitic mass] 31.2 pg 26.7 - 34.0 pg [facility] MCHC (RBC) [Mass/Vol] 33.8 g/dL 29.9 - 35.2 g/dL [facility] MCV (RBC) [Entitic vol] 92.5 fL 81.0 - 99.0 fL [facility] MONOCYTES ABSOLUTE AUTO 0.4 [facility] Monocytes/100 WBC (Bld) 8.7 % 1.7 - 12.0 % [facility] NEUTROPHILS ABSOLUTE AUTO 2.7 [facility] Neutrophils/100 WBC (Bld) 55 % 43.0 - 75.0 % [facility] Platelet mean volume (Bld) [Entitic vol] 9.7 fL 9.5 - 13.5 fL [facility] EO # 0.1 [facility] PLT 260 [facility] RBC 4.26 [facility] WBC 4.8 [facility] Basophils Auto (Bld) [#/Vol] on 08-30-2024 Basophils (Bld) [#/Vol] Automated basophil count 0.0-0.1 [facility] Basophils/100 WBC Auto (Bld) on 08-30-2024 Basophils/100 WBC (Bld) Automated basophil % 0.2-2.0 [facility] Eosinophils/100 WBC Auto (Bl d)on 08-30-2024 Eosinophils/100 WBC (Bld) Automated eosinophil % 0.9-7.0 [facility] Erythrocyte distribution wid th Auto (RBC) [Ratio]on 08-30-2024 Erythrocyte distribution width (RBC) [Ratio] Erythrocyte distribution width [Ratio] by Automated count 11.0-15.0 [facility] Hematocrit Auto (Bld) [Volum e fraction]on 08-30-2024 Hematocrit (Bld) [Volume fraction] Hematocrit [Volume Fraction] of Blood by Automated count 36.0-48.0 [facility] Hemoglobin [Mass/volume] in Bloodon 08-30-2024 Hemoglobin (Bld) [Mass/Vol] Hemoglobin [Mass/volume] in Blood 12.0-16.0 [facility] Yo 08-30-2024 L ------- Specimen: [id number] Received: 08/30/24 Status: BRANDY Gio Num: [id number] Spec Type: Surgical Subm Dr: Martín Torres Tissues: A Fallopian Tube - Sterilization (BILATERAL FALLOPIAN TUBES) B Ovary - Cyst, Non-Neoplastic (LEFT OVARY) Procedures: HE/6, Gross/Micro L4, Gross/Micro L2 Age/ Patient Sex Location Account Attending Physician Yuri Gallagher 53/F LABE[facility] [id number] Martín Torres SPEC NUM: [id number] RECD: 08/30/24 STATUS: BRANDY HOBBS NUM: [id number] DEANDRE: 08/30/24-1001 SUBM : Martín Torres ENTERED: 08/30/24-[address]: Nguyễn,Lab SPEC TYPE: Surgical DEPT: AKILAH DE LA CRUZ ENTERED BY: [id number] RECV BY: [id number] ORDERED: HE/6, Gross/Micro L4, Gross/Micro L2 ORDERED: HE/6, Gross/Micro L4, Gross/Micro L2 Pathological Diagnosis A. Bilateral fallopian tubes, resection: No significant pathologic abnormality. B. Left ovary, excision: Benign ovarian serous cystadenoma. Clinical Information Left complex ovarian cyst, pelvic pain Gross Description Part A is received in formalin labeled with the patients name, date of , and bilateral fallopian tubes are bilateral, unoriented fallopian tubes with fimbriated distal ends, 3 x 0.8 cm, and 3.5 x 0.8 cm. The serosa is fong-purple, smooth and glistening. Serial sections reveal pinpoint lumen within each segment. Cassettes: A1 Entirety of trisected fimbriated end and textiles sales representative cross-sections from shorter tube A2 Entirety of trisected fimbriated end and textiles sales representative cross-sections from longer tube (2, ss, [id number] A) Part B is received in formalin labeled with the patients name, date of , and left ovary is a 4.1 g, collapsed cystic ovary, 3.5 x 2.5 x 1.5 cm. The capsular surface is calabrese- pink to fong-purple, ranging from smooth and glistening to bosselated. Serial sections Specimen: [id number] Received: 08/30/24 Status: BRANDY Hobbs Num: [id number] Spec Type: Surgical Subm : Martín Torres Tissues: A Fallopian Tube - Sterilization (BILATERAL FALLOPIAN TUBES) B Ovary - Cyst, Non-Neoplastic (LEFT OVARY) Procedures: HE/6, Gross/Micro L4, Gross/Micro L2 Patient: ElliottYuri Felix [id number] (Continued) Specimen: [id number] Received: 08/30/24 (Continued) Gross Description (Continued) Signed (signature on file) Rox Jorge MD 09/02/24 [facility] Specimen: [id number] Received: 08/30/24 Status: BRANDY Hobbs Num: [id number] Spec Type: Surgical Subm Dr: Martín Torres Tissues: A Fallopian Tube - Sterilization (BILATERAL FALLOPIAN TUBES) B Ovary - Cyst, Non-Neoplastic (LEFT OVARY) Procedures: HE/6, Gross/Micro L4, Gross/Micro L2 Patient: Yuri Gallagher [id number] (Continued) Specimen: [id number] Received: 08/30/24 (Continued) Gross Description (Continued) reveal a unilocular, smooth lined cystic cavity, 3 cm in greatest dimension. The remaining ovarian parenchyma is calabrese-pink to yellow with focal simple cysts. No papillations or excrescences are identified. The specimen is entirely submitted in B1?B4. (4, ns, [id number] B) CPT Codes [id number] Specimen: [id number] Received: 08/30/24 Status: BRANDY Hobbs Num: [id number] Spec Type: Surgical Subm Dr: Martín Torres Tissues: A Fallopian Tube - Sterilization (BILATERAL FALLOPIAN TUBES) B Ovary - Cyst, Non-Neoplastic (LEFT OVARY) Procedures: HE/6, Gross/Micro L4, Gross/Micro L2 Patient: Yuri Gallagher [id number] (Continued) Signed (signature on file) Rox Jorge MD 09/02/24 1640 Normal The Counts Include 234 Beds At [facility] Laboratory - Hematology and Cell countson 08-30-2024 Immature granulocytes/100 WBC (Bld) 0.0 % 0.0-0.5 [facility] Leukocytes [#/volume] correc alejandra for nucleated erythrocytes in Blood by Automated counon 08-30-2024 WBC corrected for nucl RBC Auto (Bld) [#/Vol] Leukocytes [#/volume] corrected for nucleated erythrocytes in Blood by Automated coun 4.0-11.0 [facility] Lymphocytes Auto (Bld) [#/Vo l]on 08-30-2024 Lymphocytes (Bld) [#/Vol] Lymphocytes [#/volume] in Blood by Automated count 1.2-3.8 [facility] Lymphocytes/100 WBC Auto (Bl d)on 08-30-2024 Lymphocytes/100 WBC (Bld) Lymphocytes/100 leukocytes in Blood by Automated count 20.5-60.0 [facility] MCH Auto (RBC) [Entitic mass ]on 08-30-2024 MCH (RBC) [Entitic mass] MCH [Entitic mass] by Automated count 26.7-34.0 [facility] MCHC Auto (RBC) [Mass/Vol]on 08-30-2024 MCHC (RBC) [Mass/Vol] MCHC [Mass/volume] by Automated count 29.9-35.2 [facility] MCV Auto (RBC) [Entitic vol] on 08-30-2024 MCV (RBC) [Entitic vol] MCV [Entitic volume] by Automated count 81.0-99.0 [facility] Monocytes Auto (Bld) [#/Vol] on 08-30-2024 Monocytes (Bld) [#/Vol] Automated blood monocyte count 0.3-0.8 [facility] Monocytes/100 WBC Auto (Bld) on 08-30-2024 Monocytes/100 WBC (Bld) Automated monocyte % 1.7-12.0 [facility] Neutrophils Auto (Bld) [#/Vo l]on 08-30-2024 Neutrophils (Bld) [#/Vol] Neutrophils [#/volume] in Blood by Automated count 1.4-6.5 [facility] Neutrophils/100 WBC Auto (Bl d)on 08-30-2024 Neutrophils/100 WBC (Bld) Automated neutrophil % 43.0-75.0 [facility] No Panel Informationon 08-30 Eosinophils # (Auto) 0.1 10 3/uL 0.0-0.7 [facility] Immature Granulocyte # (Auto) 0.00 10 3/uL 0.00-0.03 [facility] Platelet mean volume Auto (B ld) [Entitic vol]on 08-30-2024 Platelet mean volume (Bld) [Entitic vol] Platelet mean volume [Entitic volume] in Blood by Automated count 9.5-13.5 [facility] Platelets Auto (Bld) [#/Vol] on 08-30-2024 Platelets (Bld) [#/Vol] Platelets [#/volume] in Blood by Automated count 150-450 [facility] RBC Auto (Bld) [#/Vol]on RBC (Bld) [#/Vol] Erythrocytes [#/volu me] in Blood by Automated count 4.20-5.40 [facility] ALL CBC WITH AUTO DIFFon BASOPHILS ABSOLUTE AUTO 0 [facility] Basophils/100 WBC (Bld) 0.6 % 0.2 - 2.0 % [facility] Eosinophils/100 WBC (Bld) 1 % 0.9 - 7.0 % [facility] Erythrocyte distribution width (RBC) [Ratio] 12.1 % 11.0 - 15.0 % [facility] Hematocrit (Bld) [Volume fraction] 39.4 % 36.0 - 48.0 % [facility] Hemoglobin (Bld) [Mass/Vol] 13.2 g/dL 12.0 - 16.0 g/dL [facility] IMMATURE GRANULOCYTES ABS AUTO 0.01 [facility] Immature granulocytes/100 WBC (Bld) 0.1 % 0.0 - 0.5 % [facility] LYMPHOCYTES ABSOLUTE AUTO 1.8 [facility] Lymphocytes/100 WBC (Bld) 25.5 % 20.5 - 60.0 % [facility] MCH (RBC) [Entitic mass] 31.1 pg 26.7 - 34.0 pg [facility] MCHC (RBC) [Mass/Vol] 33.5 g/dL 29.9 - 35.2 g/dL [facility] MCV (RBC) [Entitic vol] 92.7 fL 81.0 - 99.0 fL [facility] MONOCYTES ABSOLUTE AUTO 0.5 [facility] Monocytes/100 WBC (Bld) 6.8 % 1.7 - 12.0 % [facility] NEUTROPHILS ABSOLUTE AUTO 4.7 [facility] Neutrophils/100 WBC (Bld) 66 % 43.0 - 75.0 % [facility] Platelet mean volume (Bld) [Entitic vol] 10 fL 9.5 - 13.5 [facility]L [facility] RBC 4.25 [facility] WBC 7.1 [facility] Activated partial thrombopla stin time (aPTT) in platelet poor plasma by coagulation aon 08-15-2024 aPTT Coag (PPP) [Time] Activated partial thromboplastin time (aPTT) in platelet poor plasma by coagulation a 22.3-36.2 [facility] Basophils Auto (Bld) [#/Vol] on 08-15-2024 Basophils (Bld) [#/Vol] Automated basophil count 0.0-0.1 [facility] Basophils/100 WBC Auto (Bld) on 08-15-2024 Basophils/100 WBC (Bld) Automated basophil % 0.2-2.0 [facility] ECG 12-LEADon 08-15-2024 [place] [address] Electrocardiograph Report Signed Patient: YURI GALLAGHER MR#: [id number] : 1970 Acct:[id number] Age/Sex: 53 / F ADM Date: 08/15/24 Loc: PST Attending Dr: Martín Torres D.O. Ordering Physician: Martín Torres D.O. Date of Service: 08/15/24 Procedure(s): ECG 12 lead Accession Number(s): [id number] cc: [facility] Test Date: 2024-08-15 Pat Name: YURI GALLAGHER Department: Room: - Gender: Female Promotion Officer: : 1970 Requested By: MARTÍN TORRES Order Number: [id number] Reading MD: SANDEEP OBRIEN Measurements Intervals [place] Rate: 59 P: 53 GA: 155 QRS: 22 QRSD: 99 T: 31 QT: 419 QTc: 418 Interpretive Statements SINUS BRADYCARDIA POSSIBLE RIGHT VENTRICULAR CONDUCTION DELAY [RSR (QR) IN V1/V2] NONSPECIFIC T-WAVE ABNORMALITY No previous ECG available for comparison Electronically Signed On 08-15-2024 20:18:33 EST by SANDEEP OBRIEN Dictated By: Sandeep Obrien D.O. Signed By: 08/15/242018 DD/ 1442 TD/TT: [employer] Laborer/Designer: [facility] Radiology, Radiologjenny campoverde MD - 08/15/2024 [facility] [place] [id number] Electrocardiograph Report Signed Patient: YURI GALLAGHER MR#: [id number] : 1970 Acct:[id number] Age/Sex: 53 / F ADM Date: 08/15/24 Loc: PST Attending Dr: Martín Torres D.O. Ordering Physician: Martín Torres D.O. Date of Service: 08/15/24 Procedure(s): ECG 12 lead Accession Number(s): [id number] cc: [facility] Test Date: 2024-08-15 Pat Name: YURI GALLAGHER Department: Room: - Gender: Female Promotion Officer: : 1970 Requested By: MARTÍN TORRES Order Number: [id number] Reading MD: SANDEEP OBRIEN Measurements Intervals [place] Rate: 59 P: 53 GA: 155 QRS: 22 QRSD: 99 T: 31 QT: 419 QTc: 418 Interpretive Statements SINUS BRADYCARDIA POSSIBLE RIGHT VENTRICULAR CONDUCTION DELAY [RSR (QR) IN V1/V2] NONSPECIFIC T-WAVE ABNORMALITY No previous ECG available for comparison Electronically Signed On 08-15-2024 20:18:33 EST by SANDEEP OBRIEN Dictated By: Sandeep Obrien D.O. Signed By: 08/15/242018 DD/ 41 TD/TT: Flower [employer] Laborer/Designer: [facility] Radiology Study observation (narrative) [facility] ECG 12-LEADOrdered By: PolyActivat Radiology on 08-15-2024 [facility] [employer] Work Phone: Eosinophils/100 WBC Auto (Bl d)on 08-15-2024 Eosinophils/100 WBC (Bld) Automated eosinophil % 0.9-7.0 [facility] Erythrocyte distribution wid th Auto (RBC) [Ratio]on 08-15-2024 Erythrocyte distribution width (RBC) [Ratio] Erythrocyte distribution width [Ratio] by Automated count 11.0-15.0 [facility] Estimated glomerular filtrat ion rate (GFR) non- Americanon 08-15-2024 GFR/1.73 sq M.predicted among non-blacks MDRD (S/P/Bld) [Vol rate/Area] Estimated glomerular filtration rate (GFR) non- >=60 mL/min/1.7 3m 2 [facility] Hematocrit Auto (Bld) [Volum e fraction]on 08-15-2024 Hematocrit (Bld) [Volume fraction] Hematocrit [Volume Fraction] of Blood by Automated count 36.0-48.0 [facility] Hemoglobin [Mass/volume] in Bloodon 08-15-2024 Hemoglobin (Bld) [Mass/Vol] Hemoglobin [Mass/volume] in Blood 12.0-16.0 [facility] INR in Platelet poor plasma by Coagulation assayon 08-15-2024 INR Coag (PPP) [Relative time] INR in Platelet poor plasma by Coagulation assay [facility] Comment on above: DESIRED INR:2.0-3.0 CONDITIONS NOT LISTED BELOW2.5-3.5 FOR PROSTHETIC HEART VALVE REPLACEMENT2.5-3.5 RECURRENT THROMBOSIS Laboratory - Chemistry and C hemistry - challengeon 08-15-2024 Calcium [Mass/Vol] 8.8 mg/dL 8.5-10.1 [facility] Chloride [Moles/Vol] 102 mmol/L 98-107 [facility] CO2 [Moles/Vol] 32.8 mmol/L High 21.0-32.0 [facility] Creatinine [Mass/Vol] 0.83 mg/dL 0.55-1.02 [facility] GFR/1.73 sq M.predicted MDRD (S/P/Bld) [Vol rate/Area] mL/min/{1.73_m2} >=60 mL/min/1.7 3m 2 [facility] Glucose [Mass/Vol] 91 mg/dL 74-106 [facility] Potassium [Moles/Vol] 4.1 mmol/L 3.5-5.1 [facility] Sodium [Moles/Vol] 142 mmol/L 136-145 [facility] Urea nitrogen [Mass/Vol] 15.0 mg/dL 7.0-18.0 [facility] Urea nitrogen/Creatinine [Mass ratio] 18.1 mg/mg [facility] Laboratory - Hematology and Cell countson 08-15-2024 Immature granulocytes/100 WBC (Bld) 0.1 % 0.0-0.5 [facility] Leukocytes [#/volume] correc alejandra for nucleated erythrocytes in Blood by Automated counon 08-15-2024 WBC corrected for nucl RBC Auto (Bld) [#/Vol] Leukocytes [#/volume] corrected for nucleated erythrocytes in Blood by Automated coun 4.0-11.0 [facility] Lymphocytes Auto (Bld) [#/Vo l]on 08-15-2024 Lymphocytes (Bld) [#/Vol] Lymphocytes [#/volume] in Blood by Automated count 1.2-3.8 [facility] Lymphocytes/100 WBC Auto (Bl d)on 08-15-2024 Lymphocytes/100 WBC (Bld) Lymphocytes/100 leukocytes in Blood by Automated count 20.5-60.0 [facility] MCH Auto (RBC) [Entitic mass ]on 08-15-2024 MCH (RBC) [Entitic mass] MCH [Entitic mass] by Automated count 26.7-34.0 [facility] MCHC Auto (RBC) [Mass/Vol]on 08-15-2024 MCHC (RBC) [Mass/Vol] MCHC [Mass/volume] by Automated count 29.9-35.2 [facility] MCV Auto (RBC) [Entitic vol] on 08-15-2024 MCV (RBC) [Entitic vol] MCV [Entitic volume] by Automated count 81.0-99.0 [facility] Monocytes Auto (Bld) [#/Vol] on 08-15-2024 Monocytes (Bld) [#/Vol] Automated blood monocyte count 0.3-0.8 [facility] Monocytes/100 WBC Auto (Bld) on 08-15-2024 Monocytes/100 WBC (Bld) Automated monocyte % 1.7-12.0 [facility] Neutrophils Auto (Bld) [#/Vo l]on 08-15-2024 Neutrophils (Bld) [#/Vol] Neutrophils [#/volume] in Blood by Automated count 1.4-6.5 [facility] Neutrophils/100 WBC Auto (Bl d)on 08-15-2024 Neutrophils/100 WBC (Bld) Automated neutrophil % 43.0-75.0 [facility] No Panel Informationon 08-15 Eosinophils # (Auto) 0.1 10 3/uL 0.0-0.7 [facility] Immature Granulocyte # (Auto) 0.01 10 3/uL 0.00-0.03 [facility] Platelet mean volume Auto (B ld) [Entitic vol]on 08-15-2024 Platelet mean volume (Bld) [Entitic vol] Platelet mean volume [Entitic volume] in Blood by Automated count 9.5-13.5 [facility] Platelets Auto (Bld) [#/Vol] on 08-15-2024 Platelets (Bld) [#/Vol] Platelets [#/volume] in Blood by Automated count 150-450 [facility] Prothrombin time (PT)on PT Coag (PPP) [Time] Prothrombin time (PT) 9.0- 11.6 [facility] RBC Auto (Bld) [#/Vol]on RBC (Bld) [#/Vol] Erythrocytes [#/volu me] in Blood by Automated count 4.20-5.40 [facility] Serum or plasma anion gap de terminationon 08-15-2024 Anion gap [Moles/Vol] Serum or plasma an ion gap determination [facility] XR CHEST 2Von 08-15-2024 [place] [address] XRay Report Signed Patient: YURI GALLAGHER MR#: [id number] : 1970 Acct:[id number] Age/Sex: 53 / F ADM Date: 08/15/24 Loc: [facility] Attending Dr: Martín Torres D.O. Ordering Physician: Martín Torres D.O. Date of Service: 08/15/24 Procedure(s): XR chest 2V Accession Number(s): [id number] cc: Martín Torres D.O.; GENEVIEVE FENG [place] [address] Patient Name: YURI GALLAGHER MRN: [id number] date: 1970 Sex: F Assigned Patient Location: [facility] Current Patient Location: [facility] Accession/Order Number: [id number] Exam Date: 08/15/2024 14:45 Report Date: 08/15/2024 [...] Dictated By: Minh Voss M.D. Signed By: 08/15/241530 DD/ 152 TD/TT: [employer]lower [employer] Laborer/Designer: [facility] Delio Baptiste MD - 08/15/2024 [place] [address] XRay Report Signed Patient: YURI GALLAGHER MR#: [id number] : 1970 Acct:[id number] Age/Sex: 53 / F ADM Date: 08/15/24 Loc: [facility] Attending Dr: Martín Torres D.O. Ordering Physician: Martín Torres D.O. Date of Service: 08/15/24 Procedure(s): XR chest 2V Accession Number(s): [id number] cc: Martín Torres D.O.; GENEVIEVE FENG [place] [address] Patient Name: YURI GALLAGHER MRN: [facility]:[id number] date: 1970 Sex: F Assigned Patient Location: [facility] Current Patient Location: [facility] Accession/Order Number: [id number] Exam Date: 08/15/2024 14:45 Report Date: 08/15/2024 [...] Voss M.D. Signed By: 08/15/24 153 DD/ 1528 TD/TT: Flower Shop Laborer/Designer: [facility] Radiology Study observation (narrative) [facility] XR CHEST 2VOrdered By: Radio logist Radiology on 08-15-2024 [facility] [employer] Work Phone: BI MAMMOGRAM SCREENING TOMOS YNTHESIS BILATERALon 08-01-2024 [...] report is generated using voice recognition reporting (dbTwange). On occasion, Groupaliacribe erroneously drops words from the report or [...] activity/Vol] 178 U/L 81 - 234 U/L [facility] Beta-human chorionic gonadot ropin (BhCG) detectionon 06-12-2024 HCG.beta subunit Ql (Unsp spec) Beta-human chorionic gonadotropin (BhCG) detection . [facility] Comment on above: Female (Non- ) 0 - 5 (Postmenopausal) 0 - 8[employer] Electrochemiluminescence Immunoassay(ECLIA)The [employer] HCG + beta assay recognizes theholo-hormone, human chorionic gonadotropin (hCG), nicked forms of hCG, the beta-core fragment and thefree beta-subunit in human serum and plasma.Results obtained with different test methods or kitscannot used interchangeably. This assay is intended forthe early detection of .The result should not be used for treatment or fordiagnostic purposes without confirmation of thediagnosis by another medically established diagnosticproduct or procedure.This test was developed and its performancecharacteristics determined by [employer]. It has not beencleared or approved by the Food and Drug Administrationfor use as a tumor marker.This test is not interpretable as a tumor marker in females.Performed at: [address] [id number] Director: Kiko Mendoza PhD, Phone: [phone] Laboratory - Chemistry and C hemistry - challengeon 06-12-2024 LDH [Catalytic activity/Vol] 178 U/L 81-234 [facility] Serum or plasma tpink-1-htok protein tumor marker measurement (mass/volume)on 12-04-2024 AFP.tumor marker [Mass/Vol] Serum or plasma gmryi-1-tvhyomkvcwv tumor marker measurement (mass/volume) 0.0-9.2 [facility] Comment on above: [facility] El ectrochemiluminescence Immunoassay(ECLIA)Values obtained with different assay methods or kits cannotbe used interchangeably. Results cannot be interpreted asabsolute evidence of the presence or absence of malignantdisease.This test is not interpretable in females. Serum or plasma cancer antig en 125 (CA-125) measurement (units/volume)on 06-12-2024 Cancer Ag 125 Qn Serum or plasma canc er antigen 125 (CA-125) measurement (units/volume) 0.0-38.1 [facility] Comment on above: [facility] El ectrochemiluminescence Immunoassay(ECLIA)Values obtained with different assay methods or kits cannotbe used interchangeably. Results cannot be interpreted asabsolute evidence of the presence or absence of malignantdisease.Performed at: [facility] [address] [id number] Director: Kiko Mendoza PhD, Phone: [phone] IGP,APTIMA HPV,AGE GDLNon AGE GDLN ACOG TESTING Note . [facility] Comment on above: TESTS RESULT FLAG UN ITS REF RANGE LAB Clinician Provided Cytology Information Source.............Vagina No. of containers..01 ThinPrep Vial Age Algo ACOG Jeanna... FLAG LEGEND: L-Low Normal,H-High Normal,LL-Alert Low,HH-Alert High <-Panic Low,>-Panic High,A-Abnormal,AA-Critical Abnormal Performed at: 01 [address] [address] Yvette Smart MD, HPV APTIMA Negative Negative [facility] Comment on above: This nucleic acid am plification test detects fourteen high- risk HPV types (16,18,31,33,35,39,45,51,52,56,58,59,66,68) without differentiation. Performed at: =[address] [id number] Senior Technical Architect: Yvette Smart MD, Phone: [phone] Performed at: [address] [id number] Senior Technical Architect: Yvette Smart MD, Phone: [phone] IGP, APTIMA HPV, RFX 16/18,45 Note . [facility] Comment on above: TESTS RESULT FLAG UN ITS REF RANGE LAB DIAGNOSIS: 02 NEGATIVE FOR INTRAEPITHELIAL LESION OR MALIGNANCY. Specimen adequacy: 02 Satisfactory for evaluation. No endocervical component is identified. Performed by: 02 Nancy Ramirez Strategic Buyer (ASCP) . 02 Note: Note 02 The [...] High,A-Abnormal,AA-Critical Abnormal Performed at: 02 [facility] [address] [place] [address] Yvette Smart MD, SPATULA-ALONE [facility] 05-14-2024 CN Office Visit ([facility] ) SOCORRO GALLAGHER ([id number]) 1970 F Date Time Provider Department 05/14/24 3:30 PM MARSHA LANDA [facility] During your visit today, we recorded the following information about you: Weight 64 kg Marsha Landa APRN.CYBER THREAT ANALYST 05/14/2024 4:32 PM Signed Spine Care Path [...] has been under the care of her parking line painter with MRI thoracic spine imaging completed [...] pain Pat presesnt 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 Nonsmoker Pain localized to area below [...] Physical Therapy: None Treating Physicians: Genevieve Feng CYBER THREAT ANALYST - PCP Dr Melgar - Plastic Surgery Linda Carrillo PA-C - OBGYN Dr. Costa - Pain management History of Spine Injections/Surgery: 04/25/2023 Gluteal nerve injection, diagnostic - no relief Other Issues Addressed at the Visit Today: None. Precipitating Event: None PAIN EVALUATION 05/13/2024 1009 05/14/2024 1516 Pain Level: 4 6 worse at 8 Pain Location: Abdomen-Mid Upper Back-Upper Description: Aching;Burning;Cramping;Rad iating;Tightness Sharp;Cramping;Tightness;St abbing Duration Amount of Time: 3 3 Duration Units: Months Months Frequency: Continuous Continuous Intervention/Comfort measure: Medication;Reposition;Humberto w support -- Comments: in rib area, under [...] file. ALLERGIES (more content not included)... Normal [facility] Rafaela 05-13-2024 CNPN Telephone ([facility]) SOCORRO GALLAGHER ([id number]) 1970 F Date Time Provider Department 05/13/24 MARSHA LANDA [facility] During your visit today, we recorded the following information about you: Maddy Villafuerte Genevieve Oscar 05/13/2024 12:08 PM Signed [place] is calling Marsha Landa APRN.CYBER THREAT ANALYST today to ask if you can see her MRI results from [facility], which are for tomorrow's appointment. They told her they were sent to the Imaging Library, but when she tries to call she just gets disconnected. Please advise. Patient has been identified by name and birthdate. Duration of symptoms: N/A Person calling: self Call patient at: at home [phone] (home) [phone] (cell) Was an appointment scheduled: No Closing statement: Results or non-symptom based questions: Thank you for calling [facility], your call will be returned within the next business day. Dana Duffy RN 05/13/2024 12:31 PM Signed Neuro SPINE CARE COORDINATION QUICK NOTE Spoke with patient and advised her that we don't have any Thoracic MRI images or report yet and to get a CD from [facility] to bring to the appointment with [...] Date Reviewed: 04/25/2024 Reviewed by: Cheyanne Toribio, RN - Fully Assessed Reason for Visit: Patient Question [7237] Prescriptions as of 05/13/2024 - aspirin, enteric [...] Of Date: 05/13/2024 (None) Encounter Status:Closed by TADEO DANA on 05/13/24 [facility] Request for Lab Co rpon 05-02-2024 Pathology Request for Lab Moy Normal The [facility] Comment on above: Order Comment: PATHO LOGY GI SPECIMEN Result Comment: See report. Scanned copy available in EMR. PERFORMED BY: [place] [address] PATHOLOGIST SHEETER OPERATOR ANUSHA ROMO M.D. Performed By: #### P ATH TO [facility] #### [address] XR pre/post mri xrayon 05-02 XR pre/post mri xray [facility] [place] [address] [place] [address] MRI Report Signed Patient: Yuri Gallagher MR#: [id number] : 1970 Acct:[id number] Age/Sex: 53 / F ADM Date: 05/02/24 Loc: [facility] Room: Type: [facility] Attending Dr: Jose Guadalupe Costa MD Copies to: Jose Guadalupe Costa Ordering Provider: Joes Guadalupe Costa Date of Service: 05/02/24 MR/MR thoracic spine wo con: THORACIC NEURITIS ([id number]) XR/XR pre/post mri xray: THORACIC NEURITIS MR [...] Austin Marsh M.D.05/02/2024 12:53 PM Dictation Location: [place] [address] Transcribed By: [facility] 05/02/24 1253 Dictated By: Austin Marsh II, MD 05/02/24 1241 Signed By: 05/02/24 1253 Normal [facility] CT ENTEROGRAPHY W IVCONon CT ENTEROGRAPHY W IVCON * * *Final Report* * * DATE OF EXAM: Apr 25 2024 2:22PM [facility] 0545 - CT ENTEROGRAPHY W IVCON / [...] Lymph nodes: No abdominal or pelvic lymphadenopathy. Mesentery/Peritoneum: No ascites or mass. Vasculature: The celiac [...] unilocular left adnexal cyst, stable since 03/23/2023. Flower Shop Laborer/Designer: MARISOL Transcribe Date/Time: Apr 25 2024 2:55P Dictated by : ODALIS GALAVIZ MD This examination was interpreted and the report reviewed and electronically signed by: ODALIS GALAVIZ MD on Apr 25 2024 3:13PM EST [id number] Normal [facility] CT Small bowel W contrast PO and W contrast [place]ata 04-25-2024 IMPRESSION: No active small bowel inflammation or acute process in the abdomen/pelvis. 3.6 cm unilocular left adnexal cyst, stable since 03/23/2023. Flower Shop Laborer/Designer: [facility] Transcribe Date/Time: Apr 25 2024 2:55P Dictated by : ODALIS GALAVIZ MD This examination was interpreted and the report reviewed and electronically signed by: ODALIS GALAVIZ MD on Apr 25 2024 3:13PM EST DIVISION OF RADIOLOGY * * *Final Report* * * DATE OF EXAM: Apr 25 2024 2:22PM [facility] 0545 - CT ENTEROGRAPHY W IVCON / [...] Lymph nodes: No abdominal or pelvic lymphadenopathy. Mesentery/Peritoneum: No ascites or mass. Vasculature: The celiac axis and SMA are patent. The portal vein and branches, splenic vein, SMV, and hepatic veins are patent. No aortic or iliac artery aneurysm. Pelvis: No ascites or fluid collection. 3.6 cm unilocular left adnexal cyst, stable since 03/23/2023 lumbar spine MRI. Hysterectomy. Bones/Soft Tissues: No osseous lesion. Lung Bases: Unremarkable. DIVISION OF RADIOLOGY Provider, [facility] - 04/25/2024 * * *Final Report* * * DATE OF EXAM: Apr 25 2024 2:22PM [facility] 0545 - CT ENTEROGRAPHY W IVCON / [...] Lymph nodes: No abdominal or pelvic lymphadenopathy. Mesentery/Peritoneum: No ascites or mass. Vasculature: The celiac [...] unilocular left adnexal cyst, stable since 03/23/2023. Flower Shop Laborer/Designer: [facility] Transcribe Date/Time: Apr 25 2024 2:55P Dictated by : ODALIS GALAVIZ MD This examination was interpreted and the report reviewed and electronically signed by: ODALIS GALAVIZ MD on Apr 25 2024 3:13PM EST [facility] Radiology Study observation (narrative) [facility] CT Small bowel W contrast PO and W contrast IVOrdered By: Ccf Provider on 04-25-2024 [facility] 25(OH)[facility]3 [facility] 25-hydroxyvitamin D3 [Mass/Vol] 39.3 ng/mL Normal 31.0-80.0 [facility] Comment on above: Order Comment: Speci men Type: BLOOD SPECIMEN Ordering Facility: [facility] Address: [facility] [place] [address] Result Comment: Clas sification of 25 [place] Vitamin D status: Deficiency/Insufficiency: < or = 30 ng/ml. Sufficiency/Optimal Levels: 31-80 ng/mL Toxicity: > 100 ng/mL. Test performed by chemiluminescent immunoassay. Performed By: #### 1 989-3 #### [facility] CLIA [id number] [address] [place] [address] [place] CBC panel Auto (Bld)on 04-10 Erythrocyte distribution width (RBC) [Ratio] 12.4 % 11.5 - 15.0 % [facility] Hematocrit (Bld) [Volume fraction] 37.7 % 36.0 - 46.0 % [facility] Hemoglobin (Bld) [Mass/Vol] 12.5 g/dL 11.5 - 15.5 g/dL [facility] Interpretation and review of laboratory results Normal [facility] MCH (RBC) [Entitic mass] 30.8 pg 26.0 - 34.0 pg [facility] MCHC (RBC) [Mass/Vol] 33.2 g/dL 30.5 - 36.0 g/dL [facility] MCV (RBC) [Entitic vol] 92.9 fL 80.0 - 100.0 fL [facility] Nucleated RBC (Bld) [#/Vol] NINF [facility] Platelet mean volume (Bld) [Entitic vol] 10.6 fL 9.0 - 12.7 fL [facility] Platelets (Bld) [#/Vol] 274 10*3/uL [facility] RBC (Bld) [#/Vol] 4.06 10*6/uL 3.90 - 5.20 m/uL [facility] WBC (Bld) [#/Vol] 5.79 10*3/uL [facility] Erythrocyte distribution width (RBC) [Ratio] 12.4 % Normal 11.5-15.0 [facility] Comment on above: Order Comment: Speci men Type: BLOOD SPECIMENOrdering Facility: [facility] Address: [address] [place] [address] Performed By: #### 5 8410-2 ####[facility] [id number] [address] OF [place] Hematocrit (Bld) [Volume fraction] 37.7 % Normal 36.0-46.0 [facility] Comment on above: Order Comment: Speci men Type: BLOOD SPECIMENOrdering Facility: [facility] Address: [address] [place] [address] Performed By: #### 5 8410-2 ####[facility] LABCLIA [id number] [place] [address] [place] Hemoglobin (Bld) [Mass/Vol] 12.5 g/dL Normal 11.5-15.5 [facility] Comment on above: Order Comment: Speci men Type: BLOOD SPECIMENOrdering Facility: [facility] Address: [address] [place] [address] Performed By: #### 5 8410-2 ####[facility] LABCLIA [id number] [place] [address] [place] MCH (RBC) [Entitic mass] 30.8 pg Normal 26.0-34.0 [facility] Comment on above: Order Comment: Speci men Type: BLOOD SPECIMENOrdering Facility: [facility] Address: [address] [place] [address] Performed By: #### 5 8410-2 ####[facility] LABIA [id number] [place] [address] [place] MCHC (RBC) [Mass/Vol] 33.2 g/dL Normal 30.5-36.0 [facility] Comment on above: Order Comment: Speci men Type: BLOOD SPECIMENOrdering Facility: [facility] Address: [address] [place] [address] Performed By: #### 5 8410-2 ####[facility] LABCLIA [id number] [place] [address] [place] MCV (RBC) [Entitic vol] 92.9 fL Normal 80.0-100.0 [facility] Comment on above: Order Comment: Speci men Type: BLOOD SPECIMENOrdering Facility: [facility] Address: [address] [place] [address] Performed By: #### 5 8410-2 ####[facility] LABCLIA [id number] [place] [address] [place] Nucleated RBC (Bld) [#/Vol] 10*3/uL Normal <0.01 [facility] Comment on above: Order Comment: Speci men Type: BLOOD SPECIMENOrdering Facility: [facility] Address: [address] [place] [address] Performed By: #### 5 8410-2 ####[facility] LABIA [id number] [place] [address] [place] Platelet mean volume (Bld) [Entitic vol] 10.6 fL Normal 9.0-12.7 [facility] Comment on above: Order Comment: Speci men Type: BLOOD SPECIMENOrdering Facility: [facility] Address: [address] [place] [address] Performed By: #### 5 8410-2 ####[facility] LABIA [id number] [place] [address] [place] Platelets (Bld) [#/Vol] 274 10*3/uL Normal 150-400 [facility] Comment on above: Order Comment: Speci men Type: BLOOD SPECIMENOrdering Facility: [facility] Address: [address] [place] [address] Performed By: #### 5 8410-2 ####[facility] LABIA [id number] [place] [address] [place] RBC (Bld) [#/Vol] 4.06 10*6/uL Normal 3.90-5.20 [facility] Comment on above: Order Comment: Speci men Type: BLOOD SPECIMENOrdering Facility: [facility] Address: [address] [place] [address] Performed By: #### 5 8410-2 ####[facility] LABCLIA [id number] [place] [address] [place] WBC (Bld) [#/Vol] 5.79 10*3/uL Normal 3.70-11.00 [facility] Comment on above: Order Comment: Speci men Type: BLOOD SPECIMENOrdering Facility: [facility] Address: [address] [place] [address] Performed By: #### 5 8410-2 ####[facility] LABCLIA [id number] [address] [address] [place] CRP SerPl-mCncon 04-10-2024 CRP [Mass/Vol] mg/L Normal <0.9 [facility] Comment on above: Order Comment: Speci men Type: BLOOD SPECIMENOrdering Facility: [facility] Address: [address] [place] [address] Performed By: #### 2 4328, 1987-11 ####[facility] LABCLIA [id number] [place] [address] [place] Comprehensive metabolic 2000 panelon 04-10-2024 Albumin [Mass/Vol] 4.5 g/dL Normal 3.9-4.9 [facility] [facility] Comment on above: Order Comment: Speci men Type: BLOOD SPECIMENOrdering Facility: [facility] Address: [address] [place] [address] Performed By: #### 2 4328, 1987-11 ####[facility] LABCLIA [id number] [place] [address] [place] ALP [Catalytic activity/Vol] 80 U/L Normal 34-123 [facility] Comment on above: Order Comment: Speci men Type: BLOOD SPECIMENOrdering Facility: [facility] Address: [address] [place] [address] Performed By: #### 2 4328, 1987-11 ####[facility] LABCLIA [id number] [address] [address] [place] ALT [Catalytic activity/Vol] 14 U/L Normal 7-38 [facility] Comment on above: Order Comment: Speci men Type: BLOOD SPECIMENOrdering Facility: [facility] Address: [address] [place], [place] [id number] Performed By: #### 2 4323-02, 1987-11 ####[facility] LABCLIA [id number] [address] [address] [place] Anion gap [Moles/Vol] 12 mmol/L Normal 8-15 [facility] Comment on above: Order Comment: Speci men Type: BLOOD SPECIMENOrdering Facility: [facility] Address: [address] [place] [address] Performed By: #### 2 4323-02, 1987-11 ####[facility] LABCLIA [id number] [place] [address] [place] AST [Catalytic activity/Vol] 26 U/L Normal 13-35 [facility] Comment on above: Order Comment: Speci men Type: BLOOD SPECIMENOrdering Facility: [facility] Address: [address] [place] [address] Performed By: #### 2 4323-02, 1987-11 ####[facility] LABCLIA [id number] [place] [address] [place] Bilirubin [Mass/Vol] 0.2 mg/dL Normal 0.2-1.3 [facility] Comment on above: Order Comment: Speci men Type: BLOOD SPECIMENOrdering Facility: [facility] Address: [address] [place], [place] [address] Performed By: #### 2 4323-02, 1987-11 ####[facility] LABCLIA [id number] [place] [id number] [place] Calcium [Mass/Vol] 9.6 mg/dL Normal 8.5-10.2 [facility] Comment on above: Order Comment: Speci men Type: BLOOD SPECIMENOrdering Facility: [facility] Address: [address] [place], [place] [address] Performed By: #### 2 4323-02, 1987-11 ####[facility] LABCLIA [id number] [place] [id number] [place] Chloride [Moles/Vol] 102 mmol/L Normal 98-107 [facility] Comment on above: Order Comment: Speci men Type: BLOOD SPECIMENOrdering Facility: [facility] Address: [address] [place] [address] Performed By: #### 2 4323-8, 1987-11 ####[facility] LABIA [id number] [place] [address] [place] CO2 [Moles/Vol] 24 mmol/L Normal 22-30 [facility] Comment on above: Order Comment: Speci men Type: BLOOD SPECIMENOrdering Facility: [facility] Address: [address] [place] [address] Performed By: #### 2 4323-8, 1987-11 ####[facility] LABIA [id number] [place] [address] [place] Creatinine [Mass/Vol] 0.78 mg/dL Normal 0.58-0.96 [facility] Comment on above: Order Comment: Speci men Type: BLOOD SPECIMENOrdering Facility: [facility] Address: [address] [place] [address] Performed By: #### 2 4323-8, 1987-11 ####[facility] LABIA [id number] [place] [address] [place] Creatinine and Glomerular filtration rate.predicted panel (S/P/Bld) 91 mL/min/1.73m??? Normal >=60 [facility] Comment on above: Order Comment: Speci men Type: BLOOD SPECIMENOrdering Facility: [facility] Address: [address] [place] [address] Result Comment: Emelyn mated Glomerular Filtration Rate [...] GFR. Performed By: #### 2 43209-14, 1987-11 ####[facility] LABCLIA [id number] [address] [address] [place] Glucose [Mass/Vol] 94 mg/dL Normal 74-99 [facility] Comment on above: Order Comment: Roman arriola Type: BLOOD SPECIMENOrdering Facility: [facility] Address: [address] [place] [address] Result Comment: The [place] Diabetes Association (ADA) provides guidance for cutoff [...] Standards of Medical Care in Diabetes 2016, [place] [employer]. Diabetes Care. 2016.39(Suppl 1). Performed By: #### 2 4323-02, 1987-11 ####[facility] LABCLIA [id number] [address] [address] [place] Potassium [Moles/Vol] 4.5 mmol/L Normal 3.7-5.1 [facility] Comment on above: Order Comment: Roman arriola Type: BLOOD SPECIMENOrdering Facility: [facility] Address: [address] [place] [address] Performed By: #### 2 43209-14, 1987-11 ####[facility] LABCLIA [id number] [address] [address] [place] Protein [Mass/Vol] 7.7 g/dL Normal 6.3-8.0 [facility] Comment on above: Order Comment: Speci men Type: BLOOD SPECIMENOrdering Facility: [facility] Address: [address] [place] [address] Performed By: #### 2 4323-8, 1987-11 ####[facility] LABCLIA [id number] [address] [address] [place] Sodium [Moles/Vol] 138 mmol/L Normal 136-144 [facility] Comment on above: Order Comment: Speci men Type: BLOOD SPECIMENOrdering Facility: [facility] Address: [address] [place], [place] [address] Performed By: #### 2 4323-8, 1987-11 ####[facility] LABCLIA [id number] [place] [id number] [place] Urea nitrogen [Mass/Vol] 11 mg/dL Normal 7-21 [facility] Comment on above: Order Comment: Speci men Type: BLOOD SPECIMENOrdering Facility: [facility] Address: [address] [place], [place] [address] Performed By: #### 2 43238, 1987-11 ####[facility] LABCLIA [id number] [place] [id number] [facility] [place] Office Visiton 04-08-2024 Follow-up visit [id number] Jennifer Gallagher 1970 F Date Provider Department Center 04/08/2024 [facility] Family History Problem Relation Age of Onset No Known Problems Mother Heart attack Father Coronary artery disease Father's Brother Stroke Paternal Grandfather Family Status - Relation Status Age at Mother Father Father's Brother Paternal Grandfather Level of Service:51140 [place] OFFICE/OUTPATIENT ESTABLISHED LOW MDM 20 MIN Normal [facility] CT ABDOMEN PELVIS WO IV CONT [facility] 04-02-2024 CT ABDOMEN PELVIS WO IV [...] - challengeon 04-02-2024 Bilirubin Ql (U) Negative [facility] Glucose (U) [Mass/Vol] Negative [facility] Ketones Ql (U) Negative [facility] pH (U) 9.0 [pH] [facility] Specific gravity (U) [Rel density] 1.005 [facility] Urobilinogen (U) [Mass/Vol] 0.2 mg/dL [facility] Laboratory - Microbiology an d Antimicrobial susceptibilityOrdered By: Genevieve Feng on 04-02-2024 Bacteria identified Cx Nom (U) Escherichia coli Abnormal [facility] - Specimen inform ationon 04-02-2024 Appearance (U) Clear [facility] Color (U) Clear [facility] - Urinalysison Leukocyte esterase Test strip Ql (U) 1+ [facility] Nitrite Ql (U) Negative [facility] Protein Ql (U) Negative [facility] No Panel Informationon 04-02 Urine Occult Blood 3+ [facility] Urine Cultureon 04-02-2024 Bacteria identified Cx Nom (U) ORGANISM: Escherichia coli (O:ESCCOL) Mccoll Count >100,000 Aerobic LEXIS Charge (NMIC56) SUSCEPTIBILITY ORGANISM: O:ESCCOL ANTIBIOTIC INTERPRETATION LEXIS Amikacin S <16 Amoxacillin/K Clavulanate S <8 Ampicillin S <8 Ampicillin/Sulbactam S <4 Aztreonam S <4 Cefazolin S <2 Cefepime S <2 Ceftazidime S <1 Ceftazidime/Avibactam S <4 Ceftolozane/Tazobactam S <2 Ceftriaxone S <1 Cefuroxime S <4 Ciprofloxacin S <0.25 Ertapenem S <0.5 Gentamicin S <2 Levofloxacin S <0.5 Meropenem S <1 Meropenem/Vaborbactam S <2 Nitrofurantoin S <32 Piperacillin/Tazobactam S <8 Tetracycline S <4 Tigecycline S <2 Tobramycin S <2 Trimethoprim/Sulfamethoxazo le S <0.5 S = SUSCEPTIBLE I = [...] RESISTANT TO ALL B-LACTAM DRUGS. PERFORMED BY: [facility] [address] [facility]. [place] [id number] PATHOLOGIST SHEETER OPERATOR ANUSHA ROMO M.D. Normal The Counts Include 234 Beds At [facility] Comment on above: Performed By: #### C UU #### [place] [id number] [facility] HPon 03-18-2024 HP ------- Attestation signed by Seda Douglass MD at [...] wishes to proceed. Amairani Tinoco MD PGY-4 director of professional services [facility] NURSNOTEon 03-18-2024 NURSNOTE RN educated pt on d/ c instructions. RN encouraged pt to voice any questions or concerns. Pt verbalizes no questions or concerns at this time. Pt was wheeled off of unit with all of belongings. [facility] Basophils Auto (Bld) [#/Vol] on 03-13-2024 Basophils (Bld) [#/Vol] 0.0 10 3/uL 0.0-0.1 [facility] Basophils/100 WBC Auto (Bld) on 03-13-2024 Basophils/100 WBC (Bld) 0.6 % 0.2-2.0 [facility] Eosinophils/100 WBC Auto (Bl d)on 03-13-2024 Eosinophils/100 WBC (Bld) 2.4 % 0.9-7.0 [facility] Erythrocyte distribution wid th Auto (RBC) [Ratio]on 03-13-2024 Erythrocyte distribution width (RBC) [Ratio] 12.0 % 11.0-15.0 [facility] Estimated glomerular filtrat ion rate (GFR) non- Americanon 03-13-2024 GFR/1.73 sq M.predicted among non-blacks MDRD (S/P/Bld) [Vol rate/Area] mL/min/{1.73_m2} >=60 [facility] Hematocrit Auto (Bld) [Volum e fraction]on 03-13-2024 Hematocrit (Bld) [Volume fraction] 36.7 % 36.0-48.0 [facility] Hemoglobin [Mass/volume] in Bloodon 03-13-2024 Hemoglobin (Bld) [Mass/Vol] 12.3 g/dL 12.0-16.0 [facility] - Chemistry and C hemistry - challengeon 03-13-2024 Calcium [Mass/Vol] 8.8 mg/dL 8.5-10.1 [facility] Chloride [Moles/Vol] 99 mmol/L 98-107 [facility] CO2 [Moles/Vol] 32.4 mmol/L High 21.0-32.0 [facility] Creatinine [Mass/Vol] 0.66 mg/dL 0.55-1.02 [facility] GFR/1.73 sq M.predicted MDRD (S/P/Bld) [Vol rate/Area] mL/min/{1.73_m2} >=60 [facility] Glucose [Mass/Vol] 97 mg/dL 74-106 [facility] Potassium [Moles/Vol] 4.3 mmol/L 3.5-5.1 [facility] Sodium [Moles/Vol] 136 mmol/L 136-145 [facility] Urea nitrogen [Mass/Vol] 17.0 mg/dL 7.0-18.0 [facility] Urea nitrogen/Creatinine [Mass ratio] 25.8 mg/mg [facility] - Hematology and Cell countson 03-13-2024 Immature granulocytes/100 WBC (Bld) 0.0 % 0.0-0.5 [facility] Leukocytes [#/volume] correc alejandra for nucleated erythrocytes in Blood by Automated counon 03-13-2024 WBC corrected for nucl RBC Auto (Bld) [#/Vol] 6.3 10 3/uL 4.0-11.0 [facility] Lymphocytes Auto (Bld) [#/Vo l]on 03-13-2024 Lymphocytes (Bld) [#/Vol] 1.7 10 3/uL 1.2-3.8 [facility] Lymphocytes/100 WBC Auto (Bl d)on 03-13-2024 Lymphocytes/100 WBC (Bld) 27.0 % 20.5-60.0 [facility] MCH Auto (RBC) [Entitic mass ]on 03-13-2024 MCH (RBC) [Entitic mass] 31.1 pg 26.7-34.0 [facility] MCHC Auto (RBC) [Mass/Vol]on 03-13-2024 MCHC (RBC) [Mass/Vol] 33.5 g/dL 29.9-35.2 [facility] MCV Auto (RBC) [Entitic vol] on 03-13-2024 MCV (RBC) [Entitic vol] 92.7 fL 81.0-99.0 [facility] Monocytes Auto (Bld) [#/Vol] on 03-13-2024 Monocytes (Bld) [#/Vol] 0.5 10 3/uL 0.3-0.8 [facility] Monocytes/100 WBC Auto (Bld) on 03-13-2024 Monocytes/100 WBC (Bld) 7.7 % 1.7-12.0 [facility] Neutrophils Auto (Bld) [#/Vo l]on 03-13-2024 Neutrophils (Bld) [#/Vol] 3.9 10 3/uL 1.4-6.5 [facility] Neutrophils/100 WBC Auto (Bl d)on 03-13-2024 Neutrophils/100 WBC (Bld) 62.3 % 43.0-75.0 [facility] No Panel Informationon 03-13 Eosinophils # (Auto) 0.2 10 3/uL 0.0-0.7 [facility] Immature Granulocyte # (Auto) 0.00 10 3/uL 0.00-0.03 [facility] Platelet mean volume Auto (B ld) [Entitic vol]on 03-13-2024 Platelet mean volume (Bld) [Entitic vol] 9.7 fL 9.5-13.5 [facility] Platelets Auto (Bld) [#/Vol] on 03-13-2024 Platelets (Bld) [#/Vol] 246 10 3/uL 150-450 [facility] RBC Auto (Bld) [#/Vol]on RBC (Bld) [#/Vol] 3.96 10 6/uL Low 4.20-5.40 [facility] Serum or plasma anion gap de terminationon 03-13-2024 Anion gap [Moles/Vol] 8.9 mmol/L [facility] DEXA BONE DENSITYon 03-12-20 24 DEXA BONE DENSITY FINDINGS: Dual Femur bone density obtained with a [place] whole body system: Region BMD Young-Adult Age-Matched [...] AP Spine bone density obtained with a [employer] whole body system: Region BMD Young-Adult Age-Matched [...] Not Available Office Visiton 03-04-2024 Follow-up visit [id number] Jennifer Gallagher 1970 F Date Provider Department Center 03/04/2024 [facility] Family History Problem Relation Age of Onset No Known Problems Mother Heart attack Father Coronary artery disease Father's Brother Stroke Paternal Grandfather Family Status - Relation Status Age at Mother Father Father's Brother Paternal Grandfather Level of Service:57445 [place] OFFICE/OUTPATIENT NEW MODERATE MDM 45 MINUTES Normal [facility] Orders Onlyon 03-04-2024 Orders Only [id number] Jennifer Gallagher L 1970 F Date Provider Department Center 03/04/2024 TANISHA ANDINO BRANDY [facility] Family History Problem Relation Age of Onset No Known Problems Mother Heart attack Father Coronary artery disease Father's Brother Stroke Paternal Grandfather Family Status - Relation Status Age at Mother Father Father's Brother Paternal Grandfather Normal [facility] CNOVon 06-21-2023 CN Office Visit ([facility] ) SOCORRO GALLAGHER ([id number]) 1970 F Date Time Provider Department 06/21/23 8:00 AM MARSHA LANDA [facility] During your visit today, we recorded the following information about you: Weight Height 64 kg 1.6 m Marsha Landa, TELEVISION CAMERAMAN.CYBER THREAT ANALYST 06/21/2023 9:30 AM Signed Spine Care [...] under the care of pain management in [facility] where she recently underwent a right gluteal nerve block without improvement in symptoms. She states that at postinjection follow-up she was offered a piriformis injection but is reluctant to proceed. She reports that she recently had an EMG completed. EMG results were not available at time of today's appointment. 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 Nonsmoker Pain localized to right buttocks [...] prednisone Physical Therapy: Spring 2022 attended at [facility] , she states sessions were not [...] Foot-Right Back-Lower radiates to R leg Description: Aching;Burning;Dull;Numbnes s;Tingling Burning Numbness and tingling on R leg Duration Units: Months Years got worse in the last year Frequency: Continuous Continuous Intervention/Comfort measure: Medication;Reposition;Posit ioning -- Litigation: No Workers' Compensation: No YELLOW [...] Denies christina (more content not included)... Normal [facility] RAD - Ultrasound Reporton RAD - Ultrasound Report [id number]#1.00CD:127 Normal [facility] Coding Summary.on 07-31-2020 Coding Summary. CODING DATE: [address] [facility] STATUS: Home (Routine DC) PAYOR: [facility] [place] [facility] DESCRIPTION 5373 Level 3 Urology and Related Services ADMIT DX: REASON FOR VISIT DX: R35.0 Frequency of micturition FINAL DX: PRINCIPAL: R35.0 Frequency of micturition SECONDARY: R39.15 Urgency of urination Z87.440 Personal history of urinary (tract) infections F41.1 Generalized anxiety disorder Z87.442 Personal history of urinary calculi PYMT [facility] STAT DESCRIPTION DOCTOR NAME DATE NOTE: The code number assigned matches the documented diagnosis and / or procedure in the patient's chart. However, the narrative phrase printed from the coding software may appear abbreviated, or result in slightly different terminology. Coded By: So Valle Date Saved: 07/31/2020 12:41 pm [facility] Consent for Procedure/Surger yon 07-30-2020 Consent for Procedure/Surgery [id number]#[id number]:127 [facility] Consent for Treatmenton 07-11 Consent for Treatment [id number]#1.00CD:127 [facility] Discharge Instructionson Discharge Instructions [id number]#1.00CD:127 [facility] History and Physicalon 07-30 History and Physical [id number]#1.00CD:127 [facility] IntraOperative Documentson 0 07-30-2020 IntraOperative Documents [id number]#[id number]:127 [facility] Main OR Intraoperative Recor don 07-30-2020 Main OR Intraoperative Record IntraOp Document Type FTURO Summary Primary Physician: Facundo Fam Jr., MD Finalized Date/Time: 07/30/20 13:50:41 Pt. Name: YURI GALLAGHER Isidro Mireles/Sex: 1970 Female Med Rec #: [id number] Physician: Facundo Fam Jr., MD Financial #: [id number] Pt. Type: O Room/Bed: / Admit/Disch: 07/30/20 13:06:47 - Institution: Case Times FTURO Entry 1 Patient Times In Room 07/30/20 13:40:00 Out Room 07/30/20 13:51:00 Procedure Times Start 07/30/20 13:46:00 Stop 07/30/20 13:47:00 Anesthesia Times Last Modified By: Colleen RN, CNOR, Diana Avilez 07/30/20 13:50:14 Case Attendance FTURO Entry 1 Entry 2 Entry 3 Case Attendee Sarwat Yadav MD, Facundo Macias RN, CNOR, BrittaTanisha Mei CST, Marisela Reeves Role Performed Surgeon - Primary Job Developer For Deaf Adults - Primary Scrub - Primary Time In 07/30/20 13:40:00 07/30/20 13:40:00 07/30/20 13:40:00 Time Out 07/30/20 13:51:00 07/30/20 13:51:00 07/30/20 13:51:00 Procedure CYSTOSCOPY LOCAL WITH CYSTOSCOPY LOCAL WITH CYSTOSCOPY LOCAL WITH URETHRAL DILATION(.) URETHRAL DILATION(.) URETHRAL DILATION(.) Comments Last Modified By: Colleen STONER, LUKEOR, LUKE Olivarez RNORDiana RN, CNORDiana 07/30/20 13:50:29 07/30/20 13:50:29 07/30/20 13:50:29 Surgical [...] Macias RN, Lou Ann 07/30/20 13:50 Normal [facility] Main OR Preoperative Recordo n 07-30-2020 Main OR Preoperative Record Holding Area Document Type FTURO Summary Primary Physician: Facundo Fam Jr., MD Finalized Date/Time: 07/30/20 13:41:28 Pt. Name: YURI GALLAGHERO.B./Sex: 1970 Female Med Rec #: [id number] Physician: Facundo Fam Jr., MD Financial #: [id number] Pt. Type: O Room/Bed: / Admit/Disch: 07/30/20 [...] Macias RN, Lou Ann 07/30/20 13:41 Normal [facility] Operative Reporton Operative Report Patient: JENNIFER GALLAGHER Age: 49 years Sex: Female : 1970 Associated Diagnoses: None Author: Facundo Fam Jr., MD Procedure Operative Information Pre-Op Dx: Frequency - R35.0, Urgency - R39.15, Hx of UTI's - Z87.440. Post-Op Dx: Same. Anesthesia Type: Local. Procedure: Local Cystoscopy with Urethral Dilation. Complications: None. Risks/Benefits/Informed Consent: Surgical risks, benefits, details of the [...] with antibiotic coverage, Follow up arranged. Normal [facility] Comment on above: Result Comment: Elec tronically Signed By: Facundo Fam Jr., MD\.br\Date and Time Signed: 07/30/20 13:51 EST Patient Educationon 07-30-19 21 Patient Education Cystoscopy with Uret hral Dilation ? Voiding after the procedure: there [...] have a fever over 100 degrees Normal [facility] Ambulatory Clinical Summaryo n 07-21-2020 Ambulatory Clinical Summary {[id number]}CD:61 4368 Normal [facility] Ambulatory Clinical Summary {[id number]}CD:61 4368 Normal [facility] Patient Educationon 07-21-19 Patient Education Urinary Tract Infect ion Urinary tract infections (UTIs) can develop anywhere [...] Document Reviewed: 08/03/2012 ExitCare? Patient Information ?2013 Submittable. [facility] Urology Office/Clinic Noteon 07-21-2020 Urology Office/Clinic Note [...] Will order Local anesthesia. ABX sent to [facility] in [place]. Ordered: Urology Procedure Order US Renal 2. [...] day(s), # 2 tab(s), Refills(s) 0, Pharmacy: [facility]/pharmacy #[id number], 162, cm, 07/21/20 13:48:00 EST, Height/Length Dosing, 68.5, kg, 07/21/20 13:48:00 EST, Weight Dosing Urnls Dip Stick Auto w/o Microscopy POC 00247 I have reviewed the previous health record information and history for this pt. from Dr. Fam. Follow-up With When Contact Information Sarwat Yadav MD, [place] [address]- Additional Instructions: Patient Education Urinary Tract Infection [...] Protein Urine Dipstick: Negative (07/21/20 13:39:00) Specific [place] Urine Dipstick: 1.020 (07/21/20 13:39:00) Urine Appearance [...] she is been treated with Bactrim DS. [facility] Comment on above: Result Comment: Elec tronically Signed By: Sarwat Yadav MD, Facundo Felix\.br\Date and Time Signed: 07/21/20 14:42 EST\.br\Electronically Co-Signed By: Lety Marino MA\.br\Date and Time Co-Signed: 07/21/20 14:31 EST Vital Signs Date Time Vital Sign Value Performing Clinician Facility 02-20-2025 11:37-0400 Body mass index (BMI) [Ratio] 25.58 kg/m2 Teressa Tello SOCIAL MEDIA ANALYST Work Phone: [facility] 02-20-2025 11:37-0400 Body weight 65.5 kg Teressa Tello SOCIAL MEDIA ANALYST Work Phone: [facility] 02-20-2025 11:37-0400 Diastolic blood pressure 70 mm[Hg] Teressa Tello SOCIAL MEDIA ANALYST Work Phone: [facility] 02-20-2025 11:37-0400 Systolic blood pressure 100 mm[Hg] Teressa Tello SOCIAL MEDIA ANALYST Work Phone: [facility] 09-25-2024 15:30-0400 Body height 160.02 cm Martín Brian DO Work Phone: [facility] 09-25-2024 15:30-0400 Body mass index (BMI) [Ratio] 25.4 kg/m2 Martín Brian DO Work Phone: [facility] 09-25-2024 15:30-0400 Body temperature 98.4 [degF] Martín Brian DO Work Phone: [facility] 09-25-2024 15:30-0400 Body weight 65.31 kg Martín Brian DO Work Phone: [facility] 09-25-2024 15:30-0400 Diastolic blood pressure 76 mm[Hg] Martín Brian DO Work Phone: [facility] 09-25-2024 15:30-0400 Heart rate 78 /min Martín Brian DO Work Phone: [facility] 09-25-2024 15:30-0400 SaO2% (BldA) [Mass fraction] 98 % Martín Brian DO Work Phone: [facility] 09-25-2024 15:30-0400 Systolic blood pressure 128 mm[Hg] Martín Brian DO Work Phone: [facility] 09-25-2024 09:37-0400 Body height 160.02 cm Martín Brian DO Work Phone: [facility] 09-25-2024 09:37-0400 Body mass index (BMI) [Ratio] 25.1 kg/m2 Martín Brian DO Work Phone: [facility] 09-25-2024 09:37-0400 Body weight 64.41 kg Martín Brian DO Work Phone: [facility] 09-09-2024 15:59-0500 Body mass index (BMI) [Ratio] 26 kg/m2 Martín Brian DO Work Phone: [facility] 09-09-2024 15:59-0500 Body weight 66.59 kg Martín Brian DO Work Phone: [facility] 09-09-2024 15:59-0500 Diastolic blood pressure 80 mm[Hg] Martín Brian DO Work Phone: [facility] 09-09-2024 15:59-0500 Systolic blood pressure 114 mm[Hg] Martín Brian DO Work Phone: [facility] 07-31-2024 13:42-0500 Body mass index (BMI) [Ratio] 26.36 kg/m2 Martín Brian DO Work Phone: [facility] 07-31-2024 13:42-0500 Body weight 67.5 kg Martín Brian DO Work Phone: [facility] 07-31-2024 13:42-0500 Diastolic blood pressure 76 mm[Hg] Martín Brian DO Work Phone: [facility] 07-31-2024 13:42-0500 Systolic blood pressure 112 mm[Hg] Martín Brian DO Work Phone: [facility] 07-01-2024 08:36-0500 Body mass index (BMI) [Ratio] 25.76 kg/m2 Martín Brian DO Work Phone: [facility] 07-01-2024 08:36-0500 Body weight 65.95 kg Martín Brian DO Work Phone: [facility] 07-01-2024 08:36-0500 Diastolic blood pressure 70 mm[Hg] Martín Brian DO Work Phone: [facility] 07-01-2024 08:36-0500 Systolic blood pressure 120 mm[Hg] Martín Brian DO Work Phone: [facility] 05-14-2024 15:18-0500 Body mass index (BMI) [Ratio] 24.99 kg/m2 Marsha Landa TELEVISION CAMERAMAN.CYBER THREAT ANALYST Work Phone: [facility] 05-14-2024 15:18-0500 Body weight 64 kg Marsha Landa TELEVISION CAMERAMAN.CYBER THREAT ANALYST Work Phone: [facility] 05-02-2024 11:30-0400 Diastolic blood pressure 80 mm[Hg] PHYSICIAN [facility] 05-02-2024 11:30-0400 Heart rate 68 /min PHYSICIAN NO [facility] 05-02-2024 11:30-0400 Respiratory rate 16 /min PHYSICIAN NO [facility] 05-02-2024 11:30-0400 SaO2% (BldA) [Mass fraction] 97 % PHYSICIAN NO [facility] 05-02-2024 11:30-0400 Systolic blood pressure 117 mm[Hg] PHYSICIAN NO [facility] 05-02-2024 10:25-0400 Body height 160.02 cm PHYSICIAN NO [facility] 05-02-2024 10:25-0400 Body temperature 97.1 [degF] PHYSICIAN NO [facility] 05-02-2024 10:25-0400 Body weight 61.23 kg PHYSICIAN NO [facility] 05-01-2024 08:59-0400 Body height 160.02 cm PHYSICIAN NO [facility] 05-01-2024 08:59-0400 Body mass index (BMI) [Ratio] 23.9 kg/m2 PHYSICIAN NO [facility] 05-01-2024 08:59-0400 Body weight 61.23 kg PHYSICIAN NO [facility] 04-10-2024 13:24-0400 Body height 160 cm Kyle Zhu MD Work Phone: [facility] 04-10-2024 13:24-0400 Body mass index (BMI) [Ratio] 23.74 kg/m2 Kyle Zhu MD Work Phone: [facility] 04-10-2024 13:24-0400 Body temperature 98.2 [degF] Kyle Zhu MD Work Phone: [facility] 04-10-2024 13:24-0400 Body weight 60.78 kg Kyle Zhu MD Work Phone: [facility] 04-10-2024 13:24-0400 Diastolic blood pressure 80 mm[Hg] Kyle Zhu MD Work Phone: [facility] 04-10-2024 13:24-0400 Heart rate 77 /min Kyle Zhu MD Work Phone: [facility] 04-10-2024 13:24-0400 SaO2% (BldA) [Mass fraction] 97 % Kyle Zhu MD Work Phone: [facility] 04-10-2024 13:24-0400 Systolic blood pressure 120 mm[Hg] Kyle Zhu MD Work Phone: [facility] 04-02-2024 10:11-0400 Body height 160.02 cm DAGMAR Feng Work Phone: [facility] 04-02-2024 09:07-0400 Body height 160.02 cm [facility] 04-02-2024 09:07-0400 Body mass index (BMI) [Ratio] 25 kg/m2 [facility] 04-02-2024 09:07-0400 Body temperature 97.4 [degF] [facility] 04-02-2024 09:07-0400 Body weight 64.01 kg [facility] 04-02-2024 09:07-0400 Diastolic blood pressure 80 mm[Hg] [facility] 04-02-2024 09:07-0400 Systolic blood pressure 124 mm[Hg] [facility] 03-22-2024 09:49-0400 Body height 160 cm Blanka Aguirre DO Work Phone: [facility] 03-22-2024 09:49-0400 Body mass index (BMI) [Ratio] 25.01 kg/m2 Blanka Sanchezick DO Work Phone: [facility] 03-22-2024 09:49-0400 Body temperature 97.5 [degF] Blanka Sanchezick DO Work Phone: [facility] 03-22-2024 09:49-0400 Body weight 64.05 kg Blanka Aguirre DO Work Phone: [facility] 03-22-2024 09:49-0400 Diastolic blood pressure 72 mm[Hg] Blanka Aguirre DO Work Phone: [facility] 03-22-2024 09:49-0400 Heart rate 81 /min Blanka Aguirre DO Work Phone: [facility] 03-22-2024 09:49-0400 SaO2% (BldA) [Mass fraction] 98 % Blanka Aguirre DO Work Phone: [facility] 03-22-2024 09:49-0400 Systolic blood pressure 126 mm[Hg] Blanka Aguirre DO Work Phone: [facility] 03-21-2024 08:26-0400 Body height 160.02 cm [facility] 03-21-2024 08:26-0400 Body mass index (BMI) [Ratio] 24.6 kg/m2 [facility] 03-21-2024 08:26-0400 Body weight 63.04 kg [facility] 03-21-2024 08:26-0400 Diastolic blood pressure 70 mm[Hg] [facility] 03-21-2024 08:26-0400 Heart rate 73 /min [facility] 03-21-2024 08:26-0400 Respiratory rate 18 /min [facility] 03-21-2024 08:26-0400 SaO2% (BldA) [Mass fraction] 99 % [facility] 03-21-2024 08:26-0400 Systolic blood pressure 118 mm[Hg] [facility] 03-05-2024 11:34-0400 Body mass index (BMI) [Ratio] 25.3 kg/m2 Linda DEVINE Work Phone: [facility] 03-05-2024 11:34-0400 Body weight 64.77 kg Linda DEVINE Work Phone: [facility] 03-05-2024 11:34-0400 Diastolic blood pressure 82 mm[Hg] Linda DEVINE Work Phone: [facility] 03-05-2024 11:34-0400 Systolic blood pressure 122 mm[Hg] Linda DEVINE Work Phone: [facility] 02-26-2024 13:28-0400 Body height 160.02 cm [facility] 02-26-2024 13:28-0400 Body mass index (BMI) [Ratio] 25.1 kg/m2 [facility] 02-26-2024 13:28-0400 Body weight 64.41 kg [facility] 02-26-2024 13:28-0400 Diastolic blood pressure 70 mm[Hg] [facility] 02-26-2024 13:28-0400 Heart rate 80 /min [facility] 02-26-2024 13:28-0400 SaO2% (BldA) [Mass fraction] 98 % [facility] 02-26-2024 13:28-0400 Systolic blood pressure 130 mm[Hg] [facility] 02-19-2024 15:29-0400 Body height 160.02 cm [facility] 02-19-2024 15:29-0400 Body mass index (BMI) [Ratio] 25.3 kg/m2 [facility] 02-19-2024 15:29-0400 Body weight 64.86 kg [facility] 02-19-2024 15:29-0400 Diastolic blood pressure 80 mm[Hg] [facility] 02-19-2024 15:29-0400 Heart rate 87 /min [facility] 02-19-2024 15:29-0400 SaO2% (BldA) [Mass fraction] 98 % [facility] 02-19-2024 15:29-0400 Systolic blood pressure 136 mm[Hg] [facility] 10-12-2023 08:26-0400 Body height 160.02 cm [facility] 10-12-2023 08:26-0400 Body mass index (BMI) [Ratio] 25.1 kg/m2 [facility] 10-12-2023 08:26-0400 Body weight 64.41 kg [facility] 10-12-2023 08:26-0400 Diastolic blood pressure 78 mm[Hg] [facility] 10-12-2023 08:26-0400 Heart rate 78 /min [facility] 10-12-2023 08:26-0400 SaO2% (BldA) [Mass fraction] 98 % [facility] 10-12-2023 08:26-0400 Systolic blood pressure 112 mm[Hg] [facility] 09-14-2023 09:36-0500 Body height 160.02 cm [facility] 09-14-2023 09:36-0500 Body mass index (BMI) [Ratio] 24.6 kg/m2 [facility] 09-14-2023 09:36-0500 Body weight 63.04 kg [facility] 09-14-2023 09:36-0500 Diastolic blood pressure 82 mm[Hg] [facility] 09-14-2023 09:36-0500 Heart rate 88 /min [facility] 09-14-2023 09:36-0500 SaO2% (BldA) [Mass fraction] 98 % [facility] 09-14-2023 09:36-0500 Systolic blood pressure 118 mm[Hg] [facility] 06-21-2023 07:56-0500 Body height 160 cm Marsha Landa TELEVISION CAMERAMAN.CYBER THREAT ANALYST Work Phone: [facility] 06-21-2023 07:56-0500 Body weight 63.96 kg Marsha Landa TELEVISION CAMERAMAN.CYBER THREAT ANALYST Work Phone: [facility] 03-20-2023 08:57-0400 Body height 160 cm JAM Melgar MD Work Phone: [facility] 03-20-2023 08:57-0400 Body weight 61.24 kg JAM Melgar MD Work Phone: [facility] Encounters Encounter Date Encounter Type Care Provider Facility Start: 02-20-2025 End: 02-20-2025 Bamboo flowsrosendo Tello SOCIAL MEDIA ANALYST Work Phone: [facility] Start: 02-20-2025 End: 02-20-2025 Bamraimundoo flowsrosendo Tello SOCIAL MEDIA ANALYST Work Phone: [facility] Start: 02-20-2025 End: 02-20-2025 ambulatory TERESSA TELLO Not Available Start: 02-20-2025 End: 02-20-2025 Office outpatient visit 15 minutes Teressa Tello NP Work Phone: [facility] Comment on above: Hormone disorder (Pr imary Dx); Postmenopausal HRT (hormone replacement therapy) Start: 09-25-2024 End: 09-25-2024 ambulatory Martín Brian DO Work Phone: [facility] Work Phone: Start: 09-25-2024 End: 09-25-2024 Patient encounter procedure Martín Brian DO Work Phone: [facility] Work Phone: Start: 09-25-2024 End: 09-25-2024 ambulatory Martín Brian DO Work Phone: [facility] Work Phone: Start: 09-25-2024 End: 09-25-2024 Patient encounter procedure Martín Brian DO Work Phone: [facility] Work Phone: Start: 09-09-2024 End: 09-09-2024 Postop follow up visit related to original px Martín Brian DO Work Phone: [facility] Comment on above: Postoperative follow -up Start: 09-09-2024 End: 09-09-2024 ambulatory MARTÍN BRIAN Not Available Start: 09-09-2024 End: 09-09-2024 Bamboo flowsheet Martín Brian DO Work Phone: [facility] Start: 09-09-2024 End: 09-09-2024 Bamboo flowsheet Martín Brian DO Work Phone: [facility] Start: 08-30-2024 End: 08-30-2024 Clinisync Result Encounter Martín Brian DO Work Phone: [facility] External Department Unsolicited Start: 08-30-2024 End: 08-30-2024 Clinisync Result Encounter Martín Brian DO Work Phone: [facility] External Department Unsolicited Start: 08-30-2024 End: 08-30-2024 ambulatory Martín Brian [facility] Work Phone: Start: 08-30-2024 End: 08-30-2024 Departed Referred Martín Brian DO Work Phone: [facility] Start: 08-30-2024 Non-patient / Non-visit Martín Brian DO Work Phone: [facility] Work Phone: Start: 08-15-2024 Non-patient / Non-visit Martín Brian DO Work Phone: [facility] Work Phone: Start: 08-15-2024 Non-patient / Non-visit Martín Brian DO Work Phone: [facility] Work Phone: Start: 08-15-2024 End: 08-15-2024 Clinisync Result Encounter Martín Brian DO Work Phone: [facility] External Department Unsolicited Start: 08-15-2024 End: 08-15-2024 Clinisync Result Encounter Martín Brian DO Work Phone: [facility] External Department Unsolicited Start: 08-06-2024 End: 08-06-2024 ambulatory Blanka Shaw PT Work Phone: [facility] Comment on above: Thoracic spine pain (Primary Dx); Thoracic spondylosis Start: 08-06-2024 End: 08-06-2024 Bamboo flowsheet Blanka Shaw PT Work Phone: [facility] Start: 08-06-2024 End: 08-06-2024 Bamboo flowsheet Blanka Shaw PT Work Phone: [facility] Start: 08-02-2024 End: 08-02-2024 Bamboo flowsheet Sweta Wengerd ONCOLOGY PATIENT NAVIGATOR [facility] Start: 08-02-2024 End: 08-02-2024 Bamboo flowsheet Sweta Wengerd ONCOLOGY PATIENT NAVIGATOR [facility] Start: 08-02-2024 End: 08-02-2024 ambulatory Sweta Wengerd ONCOLOGY PATIENT NAVIGATOR [facility] Comment on above: Thoracic [...] Start: 07-25-2024 End: 07-25-2024 ambulatory Sweta Wengerd ONCOLOGY PATIENT NAVIGATOR [facility] Comment on above: Thoracic spine pain (Primary Dx); Thoracic spondylosis Start: 07-25-2024 End: 07-25-2024 Bamboo flowsheet Sweta Wengerd ONCOLOGY PATIENT NAVIGATOR [facility] Start: 07-25-2024 End: 07-25-2024 Bamboo flowsheet Sweta Wengerd ONCOLOGY PATIENT NAVIGATOR [facility] Start: 07-23-2024 End: 07-23-2024 ambulatory BLANKA SHAW Not Available Start: 07-23-2024 End: 07-23-2024 Bamboo flowsheet Blanka D Gundlach PT Work Phone: [facility] PT Start: 07-23-2024 End: 07-23-2024 Bamboo flowsheet Blanka D Gundlach PT Work Phone: [facility] PT Start: 07-18-2024 End: 07-18-2024 ambulatory Blanka D Gundlach PT Work Phone: [facility] PT Comment on above: Thoracic spine pain (Primary Dx); Thoracic spondylosis Start: 07-18-2024 End: 07-18-2024 Bamboo flowsheet Blanka D Gundlach PT Work Phone: [facility] PT Start: 07-18-2024 End: 07-18-2024 Bamboo flowsheet Blanka D Gundlach PT Work Phone: [facility] PT Start: 07-11-2024 End: 07-11-2024 ambulatory Blanka D Gundlach PT Work Phone: [facility] PT Comment on above: Thoracic spine pain (Primary Dx); Thoracic spondylosis Start: 07-11-2024 End: 07-11-2024 Bamboo flowsheet Blanka D Gundlach PT Work Phone: [facility] PT Start: 07-11-2024 End: 07-11-2024 Bamboo flowsheet Blanka D Gundlach PT Work Phone: [facility] PT Start: 07-08-2024 End: 07-08-2024 Bamboo flowsheet Blanka D Gundlach PT Work Phone: [facility] PT Start: 07-08-2024 End: 07-08-2024 Bamboo flowsheet Blanka D Gundlach PT Work Phone: [facility] PT Start: 07-08-2024 End: 07-08-2024 ambulatory Blanka D Gundlach PT Work Phone: [facility] PT Comment on above: Thoracic spine pain (Primary Dx); Thoracic spondylosis Start: 07-01-2024 End: 07-01-2024 Bamboo flowsheet Blanka Fentonmariamaach PT Work Phone: [facility] Start: 07-01-2024 End: 07-01-2024 Bamboo flowsheet Blanka D Gundlach PT Work Phone: [facility] PT Start: 07-01-2024 End: 07-01-2024 Office outpatient visit 15 minutes Martín Torres DO Work Phone: [facility] Comment on above: Complex ovarian cyst ; Pelvic pain in female; Encounter to discuss test results Start: 07-01-2024 End: 07-01-2024 ambulatory Blanka Fentonmariamarene PT Work Phone: [facility] PT Comment on above: Thoracic spine pain (Primary Dx); Thoracic spondylosis Start: 06-27-2024 End: 06-27-2024 ambulatory BLANKA FENTONMARIAMARENE Not Available Start: 06-27-2024 End: 06-27-2024 ambulatory Blanka Fentondlach PT Work Phone: [facility] PT Comment on above: Thoracic spine pain (Primary Dx); Thoracic spondylosis Start: 06-27-2024 End: 06-27-2024 Bamboo flowsheet Sweta Wengerd ONCOLOGY PATIENT NAVIGATOR [facility] Start: 06-27-2024 End: 06-27-2024 Bamboo flowsheet Sweta Wengerd ONCOLOGY PATIENT NAVIGATOR [facility] Start: 06-20-2024 End: 06-20-2024 ambulatory Blanka Fentondlach PT Work Phone: [facility] PT Comment on above: Thoracic spine pain (Primary Dx); Thoracic spondylosis Start: 06-20-2024 End: 06-20-2024 Bamboo flowsheet Blanka D Gundlach PT Work Phone: [facility] Start: 06-20-2024 End: 06-20-2024 Bamboo flowsheet Blanka D Gundlach PT Work Phone: [facility] Start: 06-18-2024 End: 06-18-2024 ambulatory Blanka D Gundlach PT Work Phone: [facility] Comment on above: Thoracic spine pain (Primary Dx); Thoracic spondylosis Start: 06-18-2024 End: 06-18-2024 Bamboo flowsheet Blanka D Gundlach PT Work Phone: [facility] Start: 06-18-2024 End: 06-18-2024 Bamboo flowsheet Blanka D Gundlach PT Work Phone: [facility] Start: 06-12-2024 End: 06-12-2024 Bamboo flowsheet Blanka D Gundlach PT Work Phone: [facility] Start: 06-12-2024 End: 06-12-2024 Bamboo flowsheet Blanka D Gundlach PT Work Phone: [facility] Start: 06-12-2024 End: 06-12-2024 Clinisync Result Encounter Martín Brian DO Work Phone: [facility] External Department Unsolicited Start: 06-12-2024 Non-patient / Non-visit Martín Brian DO Work Phone: [facility] Work Phone: Start: 06-12-2024 End: 06-12-2024 ambulatory Blanka D [...] ambulatory Blanka D Gundlach PT Work Phone: [facility] PT Comment on above: Thoracic spine pain (Primary Dx); Thoracic spondylosis Start: 06-05-2024 End: 06-05-2024 Bamboo flowsheet Blanka D Gundlach PT Work Phone: [facility] Start: 06-05-2024 End: 06-05-2024 Bamboo flowsheet Blanka D Gundlach PT Work Phone: [facility] Start: 06-03-2024 End: 06-03-2024 Bamboo flowsheet Blanka D Gundlach PT Work Phone: [facility] Start: 06-03-2024 End: 06-03-2024 Bamboo flowsheet Blanka D Gundlach PT Work Phone: [facility] Start: 06-03-2024 End: 06-03-2024 ambulatory Blanka D Gundlach PT Work Phone: [facility] Comment on above: Thoracic spine pain (Primary Dx); Thoracic spondylosis Start: 05-31-2024 End: 05-31-2024 Bamboo flowsheet Blanka D Gundlach PT Work Phone: [facility] Start: 05-31-2024 End: 05-31-2024 Bamboo flowsheet Blanka D Gundlach PT Work Phone: [facility] PT Start: 05-31-2024 End: 05-31-2024 ambulatory Blanka D Gundlach PT Work Phone: [facility] PT Comment on above: Thoracic spine pain (Primary Dx); Thoracic spondylosis Start: 05-29-2024 End: 05-29-2024 Bamboo flowsheet Blanka D Gundlach PT Work Phone: [facility] Start: 05-29-2024 End: 05-29-2024 Bamboo flowsheet Blanka D Gundlach PT Work Phone: [facility] Start: 05-29-2024 End: 05-29-2024 ambulatory Blanka D Gundlach PT Work Phone: [facility] PT Comment on above: Thoracic spine pain (Primary Dx); Thoracic spondylosis Start: 05-24-2024 End: 05-24-2024 Bamboo flowsheet Blanka D Gundlach PT Work Phone: [facility] Start: 05-24-2024 End: 05-24-2024 Bamboo flowsheet Blanka D Gundlach PT Work Phone: [facility] Start: 05-24-2024 End: 05-24-2024 ambulatory Blanka D Gundlach PT Work Phone: [facility] PT Comment on above: Thoracic spine pain (Primary Dx); Thoracic spondylosis Start: 05-22-2024 End: 05-22-2024 Bamboo flowsheet Blanka D Gundlach PT Work Phone: [facility] Start: 05-22-2024 End: 05-22-2024 Bamboo flowsheet Blanka D Gundlach PT Work Phone: [facility] Start: 05-22-2024 End: 05-22-2024 ambulatory Blanka D Gundlach PT Work Phone: [facility] PT Comment on above: Thoracic spine pain (Primary Dx); Thoracic spondylosis Start: 05-17-2024 End: 05-17-2024 Bamboo flowsheet Blanka D Gundlach PT Work Phone: [facility] Start: 05-17-2024 End: 05-17-2024 Bamboo flowsheet Blanka D Gundlach PT Work Phone: [facility] Start: 05-17-2024 End: 05-17-2024 ambulatory Blanka D Gundlach PT Work Phone: [facility] Comment on above: Thoracic spine pain (Primary Dx); Thoracic spondylosis Start: 05-14-2024 End: 05-14-2024 ambulatory MARSHA SANDERSNER Facility:[facility] Start: 05-14-2024 End: 05-14-2024 Patient encounter procedure Marsha Landa APRN.CYBER THREAT ANALYST Work Phone: [facility] Comment on above: Thoracic spondylosis (Primary Dx); 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; Epigastric pain Start: 05-13-2024 End: 05-13-2024 Bamboo flowsheet Linda DEVINE Work Phone: [facility] Start: 05-13-2024 End: 05-22-2024 Bamboo flowsheet Linda DEVINE Work Phone: [facility] Start: 05-13-2024 End: 05-22-2024 Clinisync Result Encounter Linda DEVINE Work Phone: [facility] External Department Unsolicited Start: 05-13-2024 End: 05-13-2024 Telephone encounter Marsha Sandersner TELEVISION CAMERAMAN.CYBER THREAT ANALYST Work Phone: [facility] Comment on above: Patient Question Start: 05-13-2024 End: 05-13-2024 Patient encounter procedure Linda DEVINE Work Phone: [facility] Start: 05-13-2024 End: 05-13-2024 Periodic preventive med est patient 40-64yrs Linda DEVINE Work Phone: [facility] Comment on above: Well woman exam with routine gynecological exam; Other screening mammogram; Surgical menopause Start: 05-13-2024 End: 05-13-2024 ambulatory LINDA CARRILLO Not Available Start: 05-02-2024 Non-patient / Non-visit PHYSICIAN NO [facility] Work Phone: Start: 05-02-2024 End: 05-02-2024 Admission to same day surgery center PHYSICIAN NO [facility] Work Phone: Start: 05-02-2024 End: 05-02-2024 ambulatory PHYSICIAN NO [facility] Work Phone: Start: 05-02-2024 End: 05-02-2024 Patient encounter procedure PHYSICIAN NO [facility] [address] Work Phone: Start: 05-02-2024 End: 05-02-2024 ambulatory PHYSICIAN NO [facility] Work Phone: Start: 05-01-2024 End: 05-01-2024 ambulatory PHYSICIAN NO [facility] Work Phone: Start: 05-01-2024 End: 05-01-2024 Patient encounter procedure PHYSICIAN NO [facility] G[facility] Work Phone: Start: 04-25-2024 End: 04-25-2024 ambulatory Kyle Alva Facility:[facility] Start: 04-25-2024 End: 04-25-2024 Subsequent hospital visit by physician Ct Prep [facility] Radiology Ct Scan Comment on above: Abdominal pain, unsp ecified abdominal location [R10.9] Start: 04-10-2024 End: 04-10-2024 Patient encounter procedure Kyle Zhu MD Work Phone: Gastroenterology Comment on above: Abdominal pain, unsp ecified abdominal location (Primary Dx) Start: 04-10-2024 End: 04-10-2024 ambulatory Kyle Zhu Facility:[facility] Start: 04-08-2024 End: 04-08-20[facility] Start: 04-02-2024 End: 04-02-2024 ambulatory BLANKA AGUIRRE Not Available Start: 04-02-2024 End: 04-02-2024 Patient encounter procedure Counts Include [facility] Physician [facility] Work Phone: Start: 04-02-2024 End: 04-02-2024 ambulatory Genevieve Feng [facility] Work Phone: Start: 04-02-2024 End: 04-02-2024 Departed Referred TELEVISION CAMERAMAN Genevieve Jung Work Phone: [facility] [place] Work Phone: Start: 03-22-2024 End: 03-22-2024 Office outpatient new 45 minutes Blanka Bose Carla DO Work Phone: [phone] Comment on above: Generalized abdomina l pain (Primary Dx); Gastroesophageal reflux disease, unspecified whether esophagitis present Start: 03-22-2024 End: 03-22-2024 ambulatory BLANKA Bose CARLA Not Available Start: 03-21-2024 End: 03-21-2024 ambulatory [facility] Work Phone: Start: 03-21-2024 End: 03-21-2024 Patient encounter procedure [facility] Work Phone: Start: 03-18-2024 End: 03-18-2024 ambulatory [facility] Start: 03-18-2024 End: 03-18-2024 ambulatory [facility] Start: 03-13-2024 Non-patient / Non-visit [facility] Work Phone: Start: 03-12-2024 [...] in female Start: 03-04-2024 Non-patient / Non-visit [facility] Work Phone: Start: 03-04-2024 End: 03-04-2024 ambulatory [facility] Start: 02-26-2024 End: 02-26-2024 ambulatory [facility] Work Phone: Start: 02-26-2024 End: 02-26-2024 Patient encounter procedure [facility] Work Phone: Start: 02-19-2024 End: 02-19-2024 ambulatory [facility] [facility] Work Phone: Start: 02-19-2024 End: 02-19-2024 Patient encounter procedure [facility] Work Phone: Start: 10-12-2023 Patient encounter status [facility] Start: 10-12-2023 End: 10-12-2023 ambulatory [facility] Work Phone: Start: 10-12-2023 End: 10-12-2023 Encounter for general adult medical examination without abnormal findings [facility] Start: 10-12-2023 End: 10-12-2023 Patient encounter procedure [facility] Work Phone: Start: 09-14-2023 End: 09-14-2023 Patient encounter procedure [facility] Work Phone: Start: 06-21-2023 End: 06-21-2023 ambulatory MARSHA LANDA Facility:[facility] Start: 06-21-2023 End: 06-21-2023 Patient encounter procedure Marsha Landa TELEVISION CAMERAMAN.CYBER THREAT ANALYST Work Phone: [facility] Comment on above: Right leg pain (Prim atnonietta Dx); Numbness and tingling of right lower extremity; Piriformis syndrome, right Start: 03-23-2023 End: 03-23-2023 ambulatory MD Agustin Mortensen Work Phone: [facility] Work Phone: Start: 03-23-2023 End: 03-23-2023 Patient encounter procedure MD Agustin Mortensen Work Phone: [facility] [address] Work Phone: Start: 03-20-2023 End: 03-20-2023 Patient encounter procedure Oscar Melgar MD Work Phone: Plastic Surgery Comment on above: Encounter for cosmet ic surgery (Primary Dx) Start: 10-20-2022 End: 10-21-[address] AGUSTIN MORTENSEN Facility:[facility] Start: 10-11-2022 End: 10-12-2022 ambulatory LORRI BERRY Facility:[facility] Procedures Date Procedure Procedure Detail Performing Clinician Start: 08-30-2024 ALL CBC WITH AUTO DIFF Martín Brian DO Work Phone: Start: 08-15-2024 XR CHEST 2V Martín Brian DO Work Phone: Start: 08-15-2024 ECG 12-LEAD Martín Brian DO Work Phone: Start: 08-15-2024 ALL CBC WITH AUTO DIFF Martín Brian DO Work Phone: Start: 08-01-2024 Mammography Sweta Wengerd ONCOLOGY PATIENT NAVIGATOR Start: 06-12-2024 ALL LDH Martín Brian DO Work Phone: Start: 06-12-2024 Carcinoembryonic antigen cea Martín Brian DO Work Phone: Comment on above: Nonsmokers <3.9 Smokers <5.6Roche [employer] stics Electrochemiluminescence Immunoassay(ECLIA)Values obtained with different assay methods or kitscannot be used interchangeably. Results cannot beinterpreted as absolute evidence of the presence orabsence of malignant disease.Performed at: [address] [id number] Director: Kiko Mendoza PhD, Phone: [phone] Start: 05-13-2024 IGP,APTIMA HPV,AGE GDLN Linda DEVINE Work Phone: Start: 05-02-2024 Esophagogastroduodenoscopy PHYSICIAN NO FAMILY Start: 05-02-2024 MR thoracic spine wo con PHYSICIAN NO FAMILY Start: 05-02-2024 XR pre/post mri xray PHYSICIAN [...] Screening for malign ant neoplasm of cervix [facility] Start: 04-10-2027 Diabetes Screening Diabetes Screenin [facility] Start: 01-30-2026 Diabetes Screening Diabetes Screenin g [facility] Start: 08-01-2025 Screening for malign ant neoplasm of breast Mammogram [facility] Start: 05-15-2025 End: 05-15-2025 Patient encounter procedure [facility] Start: 04-03-2025 End: 04-03-2025 Patient encounter procedure 04/03/2025 9:00 AM EDT Office Visit [facility] [address] [place] [address] Teressa Tello, SOCIAL MEDIA ANALYST [address] [place] [address] [facility] Start: 03-10-2025 Influenza vaccination Influenza Vacc ine (#1) [facility] Start: 10-24-2024 End: 10-24-2024 Patient encounter procedure 10/24/2024 8:40 AM EDT Office Visit [facility] [address] [place] [address] Bebe Chang, TELEVISION CAMERAMAN-CYBER THREAT ANALYST [address] [place] [address] [facility] Start: 09-09-2024 End: 09-09-2024 Patient encounter procedure 09/09/2024 3:40 PM EST Office Visit [facility] [address] [place] [id number] Martín Torres, [address] [place] [address] Arrived [facility] Comment on above: Arrived Start: 08-06-2024 End: 08-06-2024 ambulatory [facility] Comment on above: Arrived Start: 08-02-2024 End: 08-02-2024 ambulatory 08/02/2024 7:30 AM EST Treatment [facility] [address] [place] [phone] Sweta Alaniz, GENE Arrived [facility] Comment on above: Arrived Start: 08-01-2024 End: 08-01-2024 ambulatory 08/01/2024 3:00 PM EST Treatment [facility] [address] [place] [address] Blanka Shaw, PT [address] [place] [address] [facility] Start: 08-01-2024 End: 08-01-2024 Professional / ancillary services management 08/01/2024 8:30 AM EST Ancillary Procedure [facility] [place] [address] [place] [phone] [facility] [place] Start: 07-31-2024 End: 07-31-2024 Patient encounter procedure [facility] Comment on above: Arrived Start: 07-31-2024 End: 07-31-2024 Professional / ancillary services management 07/31/2024 1:00 PM EST Ancillary Procedure [facility] [address] [place] [address] [facility] Start: 07-30-2024 End: 07-30-2024 ambulatory 07/30/2024 4:00 PM EST Treatment [facility] [address] [place] [address] Blanka Shaw, PT [address] [place] [address] [facility] Start: 07-25-2024 End: 07-25-2024 ambulatory [facility] Comment on above: Arrived Start: 07-23-2024 End: 07-23-2024 ambulatory [facility] Comment on above: Arrived Start: 07-18-2024 End: 07-18-2024 ambulatory [facility] Comment on above: Arrived Start: 07-16-2024 End: 07-16-2024 ambulatory 07/16/2024 4:30 PM EST Treatment [facility] [address] [place] [address] Blanka Shaw, PT [address] [place] [address] [facility] Start: 07-11-2024 End: 07-11-2024 [...] EST Office Visit [facility] [address] [place] [address] Martín Torres, [address] [place], [place] [address] [place] [address] [facility] Start: 07-01-2024 End: 07-01-2024 ambulatory [facility] Comment on above: Arrived Start: 06-27-2024 End: 06-27-2024 ambulatory [facility] Comment on above: Arrived Start: 06-25-2024 End: 06-25-2024 ambulatory 06/25/2024 5:00 PM EST Treatment [facility] [address] [place] [address] Blanka Shaw, PT [address] [place] [address] [facility] Start: 06-23-2024 Screening for malign ant neoplasm of colon [facility] Start: 06-20-2024 End: 06-20-2024 ambulatory [facility] Comment on above: Arrived Start: 06-18-2024 End: 06-18-2024 ambulatory 06/18/2024 5:00 PM EST Treatment [facility] [address] [place] [address] Blanka Shaw, PT [address] [place] [address] [facility] Start: 06-12-2024 Screening for malign ant neoplasm of breast [facility] Start: 06-12-2024 End: 06-12-2024 ambulatory [facility] Comment on above: Arrived Start: 06-10-2024 End: 06-10-2024 ambulatory [facility] Comment on above: Arrived Start: 06-05-2024 End: 06-05-2024 ambulatory [facility] Comment on above: Arrived Start: 06-03-2024 End: 06-03-2024 ambulatory [facility] Comment on above: Arrived Start: 06-03-2024 End: 06-03-2024 Patient encounter procedure 06/03/2024 8:00 AM EST Office Visit [facility] [address] [place] [address] [place] [address] Marsha Landa APRN.CYBER THREAT ANALYST [address] [place] [address] back pain [facility] Comment on above: back pain Start: 05-31-2024 End: 05-31-2024 ambulatory [facility] Comment on above: Arrived Start: 05-29-2024 End: 05-29-2024 ambulatory [facility] Comment on above: Arrived Start: 05-24-2024 End: 05-24-2024 ambulatory 05/24/2024 7:00 AM EST Treatment [facility] [address] [place] [phone] Blanka Shaw, PT [address] [place] [address] [facility] Start: 05-22-2024 End: 05-22-2024 ambulatory 05/22/2024 7:30 AM EST Treatment [facility] [address] [place] [phone] Blanka Shaw, PT [address] [place] [address] [facility] Start: 05-20-2024 End: 05-20-2024 Professional / ancillary services management 05/20/2024 11:00 AM EST Ancillary Procedure [facility] [address] [place] [address] [place] [address] [facility] Start: 05-17-2024 End: 05-17-2024 ambulatory 05/17/2024 12:30 PM EST Evaluation [facility] [address] [place] [phone] Blanka Shaw, PT [address] [place] [address] Arrived [facility] Comment on above: Arrived Start: 05-14-2024 End: 05-14-2024 Patient encounter procedure 05/14/2024 3:30 PM EST Office Visit [facility] [address] [place], [place] [phone] Marsha Landa, TELEVISION CAMERAMAN.CYBER THREAT ANALYST [address] [place], [place] [phone] tightness in my upper abdomen and under my ribs [facility] Comment on above: tightness in my uppe [...] OB Comment on above: Arrived Start: 05-02-2024 [facility] Start: 05-02-2024 [facility] Start: 05-02-2024 MR thoracic spine wo con MR th oracic spine wo con [facility] Start: 05-02-2024 XR pre/post mri xray XR pre/post mri xray [facility] Start: 05-02-2024 End: 05-02-2024 [facility] Start: 04-25-2024 End: 04-25-2024 Patient encounter procedure Radiology Ct Scan Comment on above: CT ENTEROGRAPHY W IV CON Start: 04-16-2024 End: 04-16-2024 Professional / ancillary services management 04/16/2024 8:30 AM EDT Ancillary Procedure [facility] [address] [place] [address] [facility] Start: 04-10-2024 End: 07-10-2024 25-hydroxyvitamin D3 [Mass/volume] in Serum or Plasma [facility] Comment on above: Expected: 04/10/2024 , Expires: 07/10/2024 Start: 04-10-2024 End: 07-10-2024 C reactive protein [Mass/volume] in Serum or Plasma [facility] Comment on above: Expected: 04/10/2024 , Expires: 07/10/2024 Start: 04-10-2024 End: 07-10-2024 Comprehensive metabolic 2000 panel - Serum or Plasma [facility] Work Phone: Comment on above: Expected: 04/10/2024 , Expires: 07/10/2024 Start: 04-02-2024 Bacteria identified in Urine by Culture [facility] Start: 03-10-2024 Covid-19 Vaccine ( season) Covid-19 Vaccine ( season) [facility] Start: 03-10-2024 Influenza vaccination Influenza Vacc ine (#1) [facility] Start: 03-05-2024 End: 03-05-2025 US for US PELVIS-TRANSVAG IF INDICATED Imaging Routine Pelvic pain in female Expected: 03/05/2024 (Approximate), Expires: 03/05/2025 [facility] Work Phone: Comment on above: Expected: 03/05/2024 (Approximate), Expires: 03/05/2025 Start: 04-25-2023 Shingrix Vaccine (2 of 2) Shingrix Vaccine (2 of 2) [facility] Start: 03-10-2023 Influenza vaccination [facility] [place] Start: 07-10-2022 DEPRESSION ASSESSMENT DEPRESSION ASS ESSMENT [facility] Start: 2020 SHINGRIX VACCINE (1 of 2) SHINGRIX VACCINE (1 of 2) [facility] Start: 12-07-2015 COLOGUARD (FIT-DNA) COLOGUARD (FIT-D NA) [facility] Start: 12-07-2015 Colonoscopy COLONOSCOPY [facility] Start: 12-07-2015 COLORECTAL CANCER SCREENING COLORECTAL CANCER SCREENING [facility] Start: 12-07-[address] COLONOGRAPHY [facility] Start: 12-07-2015 DIABETES SCREEN DIABETES SCREEN [facility] Start: 12-07-2015 Diabetes Screening Diabetes Screenin g [facility] Start: 12-07-2015 FECAL OCCULT BLOOD FECAL OCCULT BLOO D [facility] Start: 12-07-2015 Lipid panel Lipid Screening [facility] Start: 12-07-2015 LIPID SCREEN LIPID SCREEN [facility] Start: 12-07-2015 Screening for malign ant neoplasm of colon [facility] Start: 12-07-2015 SIGMOIDOSCOPY SIGMOIDOSCOPY [facility] Start: 2010 Mammography MAMMOGRAM [facility] Start: 2000 HPV TESTING HPV TESTING [facility] Start: 2000 Screening for malign ant neoplasm of cervix HPV Testing [facility] Start: 12-07-1991 PAP TESTING PAP TESTING [facility] Start: 12-07-1991 Screening for malign ant neoplasm of cervix [facility] Start: 1989 Hepatitis B Vaccine (1 of 3 - 19+ 3-dose series) Hepatitis B Vaccine (1 of 3 - 19+ 3-dose series) [facility] Start: 1989 Urine microalbumin profile [facility] Start: 1988 Anxiety Screening Anxiety Screening [facility] Start: 1988 Depression Screening Depression Scre ening [facility] Start: 1988 HEPATITIS C SCREENING HEPATITIS C [facility] Start: 1988 Hepatitis C screening Hepatitis C [facility] Start: 1988 HIV SCREENING HIV SCREENING [facility] Start: 1988 HIV screening HIV Screening [facility] Start: 06-08-1971 COVID-19 VACCINE (#1) COVID-19 VACCI NE (#1) [facility] Start: 1970 HEPATITIS B (1 of 3 - 3-dose series) HEPATITIS B (1 of 3 - 3-dose series) [facility] Start: 1970 Hepatitis B Vaccine (1 of 3 - 3-dose series) Hepatitis B Vaccine (1 of 3 - 3-dose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 [facility]08-27-2024 History of Present illness Narrative* SYBIL Ortiz [...] calculated from the following: Height as of 23: 5' 3 . Weight as of this [...] behalf of: SYBIL Ortiz documented in this encounterPemiscot Memorial Health [id number] NoteL[facility] City [facility]08-26-[facility]24 NoteCardiology Clinic Note Chief Complaint: New [...] hesitate to contact cardiolog (more content not included)...[facility]12-13-2023 History of Present illness Narrative* Marsha Landa APRN.[facility] - 06/21/2023 8:00 AM EST Images [...] under the care of pain management in [facility] where she recently underwent a right gluteal nerve block without improvement in symptoms. She states that at postinjection follow-up she was offered a piriformis injection but is reluctant to proceed. She reports that she recently had an EMG completed. EMG results were not available at time of today's appointment. 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 Nonsmoker Pain localized to right buttocks [...] prednisone Physical Therapy: Spring 2022 attended at [facility] , she states sessions were not [...] Normal Limits Logroll: Negative Tinel's test: Negative Fenton's test: Negative Prone extension Negative Neuro Tests: [...] right lower extremity Piriformis syndrome, right Socorro Isidro Gallagher is a 52 year old female [...] 2023 TIME: 7:51 AM documented in this encounterLutheran Hospital12-13-2023 NoteHNO ID: [id number] Author: Marsha Landa APRN.RUBEN Service: ? Author [...] under the care of pain management in [facility] where she recently underwent a right gluteal nerve block without improvement in symptoms. She states that at postinjection follow-up she was offered a piriformis injection but is reluctant to proceed. She reports that she recently had an EMG completed. EMG results were not available at time of today's appointment. 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 : Denies chapa (more content not included)...[facility] 03-20-2023 History of Present illness [...] flanks. Oscar Melgar MD documented in this encounterLutheran Hospital04-13-2023 NoteCONSULTATION CONSULTATION DATE: 10/20/2022 TO: Agustin [...] our patients to inform us about any rvmj-mps-opbiioz medications or herbal remedies/nutritional supplements/alternative remedies. 2. [...] treatment options with their primary care provider.[facility] [id number] NotePROCEDURE: XR ANKLE RT MIN 3 VIEWS, [...] Electronically authenticated by: CHRISTINA ROBLERO Date: 2022-10-11 11:33[facility]04-04-2023 NotePROCEDURE: XR ANKLE RT MIN 3 VIEWS, [...] Electronically authenticated by: CHRISTINA ROBLERO Date: 2022-10-11 11:33[facility]06-30-2015 Evaluation note* Diagnosis Onset Date Resolution Status Anxiety January 06, 2015 acute Anxiety January 06, 2015 acute Palpitations acute Screening for lipid disorders acute Screening for metabolic disorder acute Screening, deficiency anemia, iron acute Wellness examination acute [facility] Work Phone: evaluation note* Diagnosis Encounter for cosmetic surgery- Primary Other plastic surgery for unacceptable cosmetic appearance documented in this encounter [facility]al[facility] noteNo assessment information availableFayette [facility] Work Phone: evaluation note* Diagnosis Right leg pain- Primary Pain in limb Numbness and tingling of right lower extremity Piriformis syndrome, right documented in this encounter [facility] note* Diagnosis Onset Date Resolution Status Chest tightness acute Dizziness acute Family history of heart dise ase in male family member before age 55 acute Palpitations acute [facility] Work Phone: Evaluation note* Diagnosis Onset Date Resolution Status Chest tightness acute Dizziness acute Family history of heart dise ase in male family member before age 55 acute Palpitations acute Abdominal pain acute Bloating acute [facility] Work Phone: Evaluation note* Diagnosis Onset Date Resolution Status Chest tightness acute Dizziness acute Family history of heart dise ase in male family member before age 55 acute Palpitations acute Abdominal pain acute Bloating acute Anxiety January 06, 2015 acute Chest wall pain acute Myocardial bridge acute UTI (urinary tract infection) acute [facility] Work Phone: Evaluation note* Diagnosis Abdominal pain, unspecified abdominal location- Primary documented in this encounter [facility]Eval[facility]* Diagnosis Abdominal pain, unspecified abdominal location documented in this encounter [facility]* Diagnosis Onset Date Resolution Status Chest tightness acute Dizziness acute Family history of heart dise ase in male family member before age 55 acute Palpitations acute Abdominal pain acute Bloating acute Anxiety January 06, 2015 acute Chest wall pain acute Myocardial bridge acute UTI (urinary tract infection) acute Upper abdominal pain acute [facility] Work Phone: evaluation note* Diagnosis Well woman exam with routine gynecological exam Routine gynecological examination Other screening mammogram Surgical menopause [facility]* Diagnosis Thoracic spondylosis- Primary Thoracic spondylosis without myelopathy 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 Displacement of thoracic intervertebral disc without myelopathy Epigastric pain Abdominal pain, epigastric [facility] this encounter [facility]* Diagnosis Thoracic spine pain- Primary Pain in thoracic spine Thoracic spondylosis documented in this [facility]* Diagnosis Thoracic spine pain- Primary Pain in thoracic spine Thoracic spondylosis documented in [facility]* Diagnosis Thoracic spine pain- Primary Pain in thoracic spine Thoracic spondylosis documented in [facility]* Diagnosis Thoracic spine pain- Primary Pain in thoracic spine Thoracic spondylosis documented in [facility]* Diagnosis Thoracic spine pain- Primary Pain in thoracic spine Thoracic spondylosis documented [facility]* Diagnosis Generalized abdominal pain- Primary Abdominal pain, generalized Gastroesophageal reflux disease, unspecified whether esophagitis present documented [facility]* Diagnosis Encounter to discuss test results Other specified counseling Pelvic pain in female Unspecified symptom associated with female genital organs documented [facility]* Diagnosis Thoracic spine pain- Primary Pain in thoracic spine Thoracic spondylosis documented in [facility]* Diagnosis Thoracic spine pain- Primary Pain in thoracic spine Thoracic spondylosis documented in [facility]* Diagnosis Pre-op examination Pelvic pain in female Unspecified symptom associated with female genital organs Complex cyst of left ovary documented in this [facility]* Diagnosis Postoperative follow-up Follow-up examination, following unspecified surgery documented [facility]* Diagnosis Complex ovarian cyst Pelvic pain in female Unspecified symptom associated with female genital organs Encounter to discuss test results Other specified counseling documented in this encounter [facility]* Diagnosis Hormone disorder- Primary Unspecified endocrine disorder Postmenopausal HRT (hormone replacement therapy) Need for prophylactic hormone replacement therapy (postmenopausal) documented in this encounter [facility] SystemsReason for visit Narrative* Rehabilitation - Outpatient (Routine) - Authorized Specialty Diagnoses / Procedures Referred By Tyson t Referred To Contact Physical Therapy Diagnoses Back pain Procedures [place] PHYSICAL THERAPY EVALUATION LOW COMPLEX 20 MINS Blanka Shaw, PT [address] [place] [address] Phone: tel: fax: Blanka Shaw, PT [address] [place] [address] Phone: tel: fax: Referral ID Status Reason Start Date Expiration Date Visits Requested Visits Authorized [id number] Authorized Consult and Treat 05/15/2024 11/11/2024 40 40 [facility] for visit Narrative* Rehabilitation - Outpatient (Routine) - Authorized Specialty Diagnoses / Procedures Referred By Tyson t Referred To Contact Physical Therapy Diagnoses Back pain Procedures [place] PHYSICAL THERAPY EVALUATION LOW COMPLEX 20 MINS Blanka Shaw, PT [address] [place] [address] Phone: tel: fax: Blanka Shaw, PT [address] [place] [address] Phone: tel: fax: Referral ID Status Reason Start Date Expiration Date Visits Requested Visits Authorized [id number] Authorized Consult and Treat 05/15/2024 07/09/2024 40 40 [facility] for visit Narrative* Rehabilitation - Outpatient (Routine) - Authorized Specialty Diagnoses / Procedures Referred By Contac t Referred To Contact Physical Therapy Diagnoses Low back pain, unspecified Procedures GA THERAPEUTIC PX 1/> AREAS EACH 15 MIN EXERCISES Marsha Landa MD [address] [place] [address] Phone: tel: fax: Blanka Shaw, PT [address] [place] [address] Referral ID Status Reason Start Date Expiration Date V isits Requested Visits Authorized [id number] Authorized 07/09/2024 07/09/2025 40 40 [facility] N[facility]* [facility] - Outpatient (Routine) - Authorized Specialty Diagnoses / Procedures Referred By Contac t Referred To Contact Physical Therapy Diagnoses Low back pain, unspecified Procedures GA THERAPEUTIC PX 1/> AREAS EACH 15 MIN EXERCISES Marsha Landa MD [address] [place] [address] Phone: tel: fax: Blanka Shaw, PT [address] [place] [address] Referral ID Status Reason Start Date Expiration Date V isits Requested Visits Authorized [id number] Authorized 07/09/2024 01/05/2025 40 40 [facility] Healthcare Summary Purpose Family History No Family [...] Date/ Time Advance Directives No March 9:01am Advance Directive Response Recorded Date/ Time Advance Directives No March 8:01am Chief Complaint and Reason for Visit Chief [...] tract infection) Upper abdominal pain Chief Complaint Admit Date Unknown August 30, 2024 10:01am Chief Complaint Admit Date Unknown August 30, 2024 10:01am follow on meds/symptoms September 25, 2024 9:18am Chief Complaint Admit Date Unknown August 30, 2024 10:01am follow on meds/symptoms September 25, 2024 9:18am Pre Surgical Clearance September 25, 2024 3:25pm Reason for Visit Admit Date Upper abdominal pain September 25, 2024 9: 18am Reason for Referral Specialty Diagnoses / Procedures Referred By Contac t Referred To Contact CT IMAGING Diagnoses Abdominal pain, unspecified abdominal location Procedures CT ENTEROGRAPHY W IVCON CT ABD & PELVIS W/CONTRAST Kyle Zhu MD [address] [place] [address] Ct Imaging [place] [address] Referral ID Status Reason Start Date Expiration Date Visits Requested Visits Authorized [id number] Authorized Auto-Generat ed Referral 04/10/2024 05/10/2025 1 1 Referral ID Status Reason Start Date Expiration Date V isits Requested Visits Authorized [id number] Closed Auto-Generate d Referral 04/10/2024 05/10/2025 1 1 Specialty Diagnoses / Procedures Referred By Contac t Referred To Contact [facility] Diagnoses Generalized abdominal pain Thoracic spondylosis 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 Procedures CONSULT TO PHYSICAL THERAPY PHYSICAL THERAPY EVALUATION HIGH COMPLEX 45 MINS Marsha Landa, TELEVISION CAMERAMAN.CYBER THREAT ANALYST [address] [place] [id number] [facility] [place] [id number] [place] [address] Referral ID Status Reason Start Date Expiration Date Visits Requested Visits Authorized [id number] Pending Review Auto-Generat ed Referral 05/14/2024 05/14/2025 1 1 Specialty Diagnoses / Procedures Referred By Contac t Referred To Contact Radiology Diagnoses Generalized abdominal pain Procedures CT abdomen pelvis w and wo IV contrast Blanka Aguirre, [address] [place] [address] Referral ID Status Reason Start Date Expiration Date V isits Requested Visits Authorized [id number] Pending Review 03/24/2024 09/20/2024 1 1 Additional Source Comments INFORMATION SOURCE (unrecogn ized section and content) DATE CREATED AUTHOR 09/08/2020 Italo Cotter [facility] DATE CREATED AUTHOR AUTHOR'S ORGANIZ ATION 10/27/2022 [facility] DATE CREATED AUTHOR AUTHOR'S ORGANIZ ATION 05/16/2024 [facility] DATE CREATED AUTHOR AUTHOR'S ORGANIZ ATION 05/27/2024 [facility] DATE CREATED AUTHOR AUTHOR'S ORGANIZ ATION 09/04/2024 [facility] DATE CREATED AUTHOR AUTHOR'S ORGANIZ ATION 02/22/2025 [facility] EPIC Source Comments (unrecognize d section and content) In the event this informatio n is protected by the Federal Confidentiality of Alcohol and Drug Abuse Patient Records regulations: The Federal rules restrict any use of the information to criminally investigate or prosecute any alcohol or drug abuse patient.[facility] the event this information is protected by the Federal Confidentiality of Alcohol and Drug Abuse Patient Records regulations: The Federal rules restrict any use of the information to criminally investigate or prosecute any alcohol or drug abuse patient.[facility] HospitalIn the event this information is protected by the Federal Confidentiality of Alcohol and Drug Abuse Patient Records regulations: The Federal rules restrict any use of the information to criminally investigate or prosecute any alcohol or drug abuse patient.[facility] HospitalIn the event this information is protected by the Federal Confidentiality of Alcohol and Drug Abuse Patient Records regulations: The Federal rules restrict any use of the information to criminally investigate or prosecute any alcohol or drug abuse patient.[facility] Hospital[facility] the event this information is protected by the Federal Confidentiality of Alcohol and Drug Abuse Patient Records regulations: The Federal rules restrict any use of the information to criminally investigate or prosecute any alcohol or drug abuse patient.[facility] HospitalIn the event this information is protected by the Federal Confidentiality of Alcohol and Drug Abuse Patient Records regulations: The Federal rules restrict any use of the information to criminally investigate or prosecute any alcohol or drug abuse patient.[facility] HospitalIn the event this information is protected by the Federal Confidentiality of Alcohol and Drug Abuse Patient Records regulations: The Federal rules restrict any use of the information to criminally investigate or prosecute any alcohol or drug abuse patient.[facility] HospitalIn the event this information is protected by the Federal Confidentiality of Alcohol and Drug Abuse Patient Records regulations: The Federal rules restrict any use of the information to criminally investigate or prosecute any alcohol or drug abuse patient.[facility] Reason for Visit (unrecogniz ed section and content) Reason Comments Radiology CT Specialty Diagnoses / Procedures Referred By Contac t Referred To Contact CT IMAGING Diagnoses Abdominal pain, unspecified abdominal location Procedures CT ENTEROGRAPHY W IVCON CT ABD & PELVIS W/CONTRAST Kyle Zhu MD [address] [place] [id number] Imaging [facility] Referral ID Status Reason Start Date Expiration Date V isits Requested Visits Authorized [id number] Closed Auto-Generate d Referral 04/10/2024 05/10/2025 1 1 Reason Comments Consult Reason Comments New Patient Low Back Pain Reason Comments New Patient Per CT small bowel p olyp Reason Comments Gynecologic Exam Reason Comments Patient Question Reason Comments New Patient Thoracic back pain Reason Comments Back Pain Reason Comments Follow-up Reason Comments Pre-op Visit Reason Comments Post-op Visit Reason Comments follow up labs and ultrasound Complex cy st Reason Comments Hormone therapy replacement Care Teams (unrecognized sec tion and content) [...] End: October 12, 2023 Genevieve Feng APRN SOCIAL MEDIA ANALYST-C Attending Provider Act star Start: October 12, 2023 End: October 12, 2023 Team Status: Inactive Member Role Status Dates Genevieve Feng APRN SOCIAL MEDIA ANALYST-C Primary Care Provider, Attending Provider Active Start: February 19, 2024 End: February 19, 2024 Team Status: Inactive Member Role Status Dates Genevieve Feng APRN SOCIAL MEDIA ANALYST-C Primary Care Provider, Attending Provider Active Start: February 26, 2024 End: February 26, 2024 Team Status: Active Member Role Status Dates Genevieve Feng APRN SOCIAL MEDIA ANALYST-C Primary Care Provider Active Start: March 132023 Seda Douglass MD Attending Provider Active Start: March 13, 2024 Team Status: Inactive Member Role Status Dates Genevieve Feng APRN SOCIAL MEDIA ANALYST-C Primary Care Provider, Attending Provider Active Start: March 21, 2024 End: March 21, 2024 Team Status: Active Member Role Status Dates Genevieve Feng APRN SOCIAL MEDIA ANALYST-C Primary Care Provider Active Start: March 04, 2024 Sandeep Obrien DO Attending Provider Active Sta rt: March 04, 2024 Team Status: Inactive Member Role Status Dates Genevieve Feng APRN SOCIAL MEDIA ANALYST-C Primary Care Provider, Attending Provider Active Start: April 02, 2024 End: April 02, 2024 Team Status: Inactive Member Role Status Dates Genevieve Feng APRN SOCIAL MEDIA ANALYST-C Attending Provider Act star Start: April 02, 2024 End: April 02, 2024 Team Status: Inactive Member Role Status Dates Genevieve Feng APRN SOCIAL MEDIA ANALYST-C Attending Provider Active Start: March End: April 02, 2024 PHYSICIAN NO FAMILY Primary Care Provider Active Start: April 02, 2024 End: April 02, 2024 Team Status: Inactive Member Role Status Dates Lady Vásquez DO Attending Provider Active St art: May 01, 2024 End: May 01, 2024 Genevieve Feng APRN SOCIAL MEDIA ANALYST-C Primary Care Provider Active Start: April End: May 01, 2024 Team Status: Active Member Role Status Dates Genevieve Feng APRN SOCIAL MEDIA ANALYST-C Primary Care Provider Active Start: May 02, 2024 Jose Guadalupe Costa MD Attending Provider Acti ve Start: May 02, 2024 Team Status: Inactive Member Role Status Dates Genevieve Feng APRN SOCIAL MEDIA ANALYST-C Primary Care Provider Active Start: April End: May 02, 2024 Lady Vásquez DO Attending Provider Active St art: May 02, 2024 End: May 02, 2024 Team Status: Active Member Role Status Dates Genevieve Feng APRN SOCIAL MEDIA ANALYST-C Primary Care Provider Active Start: April Lady Vásquez DO Attending Provider, Other Provider Active Start: May 02, 2024 Team Status: Inactive Member Role Status Dates Genevieve Feng APRN SOCIAL MEDIA ANALYST-C Primary Care Provider Active Start: May 02, 2024 End: May 02, 2024 Jose Guadalupe Costa MD Attending Provider Acti ve Start: May 02, 2024 End: May 02, 2024 Oyster Washer Relationship Specialty Start Date End Date Agustin Mortensen MD [address] [place] [address] PCP - General Family Medicine 03/16/23 Oyster Washer Relationship Specialty Start Date End Date Agustin Mortensen MD [address] [place] [address] PCP - General Family Medicine 03/16/23 Oyster Washer Relationship Specialty Start Date End Date Agustin Mortensen MD [address] [place] [address] PCP - General Family Medicine 03/16/23 Oyster Washer Relationship Specialty Start Date End Date Agustin Mortensen MD [address] [place] [address] PCP - General Family Medicine 03/16/23 Blanka Aguirre DO [address] [place] [address] PCP - Medical [place] [employer] 07/10/16 07/09/99 Oyster Washer Relationship Specialty Start Date End Date Agustin Mortensen MD [address] [facility] [place] [address] PCP - General Family Medicine 03/16/23 Blanka Aguirre DO [address] [place] [address] PCP - Medical [place] [employer] 07/10/16 07/09/99 Oyster Washer Relationship Specialty Start Date End Date Agustin Mortensen MD [address] [facility] [place] [address] PCP - General Family Medicine 03/16/23 Blanka Aguirre DO [address] [place] [address] PCP - Medical [place] [employer] 07/10/16 07/09/99 Oyster Washer Relationship Specialty Start Date End Date Agustin Mortensen MD [address] [facility] [place] [address] PCP - General Family Medicine 03/16/23 Blanka Aguirre DO [address] [place] [address] PCP - Medical [place] [employer] 07/10/16 07/09/99 Oyster Washer Relationship Specialty Start Date End Date Agustin Mortensen MD [address] [place] [address] PCP - General Family Medicine 03/16/23 Blanka Aguirre DO [address] [place] [address] PCP - Medical [place] [employer] 07/10/16 07/09/99 Oyster Washer Relationship Specialty Start Date End Date Agustin Mortensen MD [address] [facility] [place] [address] PCP - General Family Medicine 03/16/23 Blanka Aguirre DO [address] [place] [address] PCP - Medical [place] [employer] 07/10/16 07/09/99 Oyster Washer Relationship Specialty Start Date End Date Agustin Mortensen MD [address] [facility] [place] [address] PCP - General Family Medicine 03/16/23 Blanka Aguirre DO [address] [place] [address] PCP - Medical [place] [employer] 07/10/16 07/09/99 Oyster Washer Relationship Specialty Start Date End Date Agustin Mortensen MD [address] [facility] [place] [address] PCP - General Family Medicine 03/16/23 Blanka Aguirre DO [address] [place] [address] PCP - Medical [place] [employer] 07/10/16 07/09/99 Oyster Washer Relationship Specialty Start Date End Date Agustin Mortensen MD [address] [facility] [place] [address] PCP - General Family Medicine 03/16/23 Blanka Aguirre DO [address] [place] [address] PCP - Medical [place] [employer] 07/10/16 07/09/99 Oyster Washer Relationship Specialty Start Date End Date Agustin Mortensen MD [address] [place] [facility] [place] [address] PCP - General Family Medicine 03/16/23 Oyster Washer Relationship Specialty Start Date End Date Agustin Mortensen MD [address] [facility] [place] [address] PCP - General Family Medicine 03/16/23 Oyster Washer Relationship Specialty Start Date End Date Agustin Mortensen MD [address] [facility] [place] [address] PCP - General Family Medicine 03/16/23 Oyster Washer Relationship Specialty Start Date End Date Agustin Mortensen MD [address] [facility] [place] [address] PCP - General Family Medicine 03/16/23 Blanka Aguirre DO [address] [place] [address] PCP - Medical [place] [employer] 07/10/16 07/09/99 Oyster Washer Relationship Specialty Start Date End Date Agustin Mortensen MD [address] [facility] [place] [address] PCP - General Family Medicine 03/16/23 Blanka Aguirre DO [address] [place] [address] PCP - Medical [place] [employer] 07/10/16 07/09/99 Oyster Washer Relationship Specialty Start Date End Date Agustin Mortensen MD [address] [facility] [place] [address] PCP - General Family Medicine 03/16/23 Blanka Aguirre DO [address] [facility] [address] [place] [address] PCP - Medical [place] [employer] 07/10/16 07/09/99 Oyster Washer Relationship Specialty Start Date End Date Agustin Mortensen MD [address] [place] [address] PCP - General Family Medicine 03/16/23 Blanka Aguirre DO [address] [facility] [address] [place] [address] PCP - Medical [place] [employer] 07/10/16 07/09/99 Oyster Washer Relationship Specialty Start Date End Date Agustin Mortensen MD [address] [place] [address] PCP - General Family Medicine 03/16/23 Blanka Aguirre DO [address] [place] [address] PCP - Medical [place] [employer] 07/10/16 07/09/99 Team Status: Active Member Role Status Dates Genevieve Feng APRN SOCIAL MEDIA ANALYST-C Primary Care Provider Active Start: June Martín Brian , DO Attending Provider Active Start : June 12, 2024 Team Status: Active Member Role Status Dates Genevieve Feng APRN SOCIAL MEDIA ANALYST-C Primary Care Provider Active Start: August Martínjose maria Nguyễno , DO Attending Provider Active Start : August 15, 2024 Team Status: Active Member Role Status Dates Genevieve Feng APRN SOCIAL MEDIA ANALYST-C Primary Care Provider Active Start: August 302024 Martín Brian , DO Attending Provider Active Start : August 30, 2024 Team Status: Inactive Member Role Status Dates Martín Torres DO Attending Provider Active Start : August 30, 2024 End: August 30, 2024 Team Status: Active Member Role Status Dates Sandeep Obrien DO Attending Provider Active Sta rt: August 15, 2024 Team Status: Inactive Member Role Status Dates Lady Vásquez , Attending Provider Active St art: September 25, 2024 End: September 25, 2024 Genevieve Feng APRN SOCIAL MEDIA ANALYST-C Primary Care Provider Active Start: September 25, 2024 End: September 25, 2024 Team Status: Inactive Member Role Status Dates Genevieve Feng APRN SOCIAL MEDIA ANALYST-C Primary Care Provider, Attending Provider Active Start: September 25, 2024 End: September 25, 2024 Oyster Washer Relationship Specialty Start Date End Date Agustin Mortensen MD [address] [place] [facility] [place] [address] PCP - General Family Medicine 03/16/23 Blanka Aguirre DO [address] [facility] [address] [place] [address] PCP - Medical [place] [employer] 07/10/16 07/09/99 Oyster Washer Relationship Specialty Start Date End Date Agustin Mortensen MD [address] [place] [address] PCP - General Family Medicine 03/16/23 Blanka Aguirre DO [address] [place] [address] PCP - Medical [place] [employer] 07/10/16 07/09/99 Oyster Washer Relationship Specialty Start Date End Date Agustin Mortensen MD [address] [place] [address] PCP - General Family [facility] 03/16/23 Blanka Aguirre DO [address] [place] [address] PCP - [facility] Commercial 07/10/16 07/09/99 Oyster Washer Relationship Specialty Start Date End Date Agustin Mortensen MD [address] [place] [address] PCP - [facility] 03/16/23 Blanka [facility]re DO [address] [facility] [address] [place] [address] PCP - [facility] 07/10/16 07/09/99 Goals (unrecognized section and content) [...] BE BASED ON THE PRIMARY CLINICAL RECORDS. [facility]. provides no warranty or guarantee of the accuracy or completeness of information in this document.
--- OUTSIDE RECORDS SUMMARY | 2025-02-28 07:29 | XMS_ITS | Encounter Summary ---
Author Organization [facility] Address [address] [facility] [place] [address] Care Team Providers Care Fisherman Helper Name Role Phone Patience Jimenez MD Primary Care Provider [phone] González Mcallister DO Unavailable [phone] Encounter Details Date Type Department Care Team (Late Contact Info) Description 03/05/2024 Abstract [facility] [address] [place] [address] Martín Torres DO [address] [facility] [address] [place], [place] [address] Social History Tobacco Use Types Packs/Day Years [...] Department Care Team (Late Contact Info) Description 04/03/2025 9:00 AM EDT Office Visit [facility] [address] [facility] [place] [address] Allison Tello, FAVIAN [address] [place] [address] 05/15/2025 11:00 AM EST Office Visit [facility]n ATKINSON [address] [facility] [place] [address] Linda Carrillo PA [address] [facility] [place] [address] documented as of this encounter Visit Diagnoses Not on filedocumented in this encounter Care Teams Fisherman Helper Relationship Specialty Start Date End Date Patience Jimenez MD [address] [facility] [place] [address] PCP - General Family Medicine 03/16/23 González Mcallister DO [address] [facility] [[email or web address] [address] [place] [address] PCP - Medical [place] [employer] 07/10/16 07/09/99 documented as of this encounter
--- OUTSIDE RECORDS SUMMARY | 2025-02-28 07:29 | XMS_ITS | Encounter Summary ---
Author Organization [facility] Address [address] [facility] [place] [address] Care Team Providers Care Brass Bobbin Winder Name Role Phone Patience Jimenez MD Primary Care Provider [phone] González Mcallister DO Unavailable [phone] Encounter Details Date Type Department Care Team (Late st Contact Info) Description 08/30/2024 Abstract [facility] [address] [facility] [place] [address] Martín Torres DO [address] [facility] [address] [place], [facility] Social History Tobacco Use Types Packs/Day Years [...] week 03/20/2024 How often do you attend [facility] or hinduism services? Never 03/20/2024 Do you belong to any clubs o r organizations such as mormon groups, unions, fraternal or athletic groups, or [...] and heating? Not hard at all 03/20/2024 [facility] - Occupational Stress Questionnaire Answer Date Recorded [...] any time in the past 12 m [facility], were you homeless or living in a intermediate (including now)? No 03/20/2024 Comments No Sex [...] Description 04/03/2025 9:00 AM EDT Office Visit [facility] [address] [facility] [place] [address] Allison Tello, FAVIAN [address] [facility] [place] [address] 05/15/2025 11:00 AM EST Office Visit [facility] [address] [facility] [place] [address] Linda Carrillo PA [address] [facility] [address] [place], [facility] documented as of this encounter Visit Diagnoses Not on filedocumented in this encounter Care Teams Brass Bobbin Winder Relationship Specialty Start Date End Date Patience Jimenez MD [address] [place] [address] PCP - General Family Medicine 03/16/23 González Mcallister DO [address] [facility] [address] [place] [address] PCP - Medical [place] Commercial 07/10/16 07/09/99 documented as of this encounter
--- OUTSIDE RECORDS SUMMARY | 2025-02-28 07:29 | XMS_ITS | Encounter Summary ---
Author Organization [facility] Address [address] [place] [address] Care Team Providers Care Finance Teacher Name Role Phone Unavailable Primary Care Provider Unavailabl e Source Comments In the event this information is protected by the Federal Confidentiality of Alcohol and Drug AbusePatient Records regulations: The Federal rules restrict any use of the information to criminally investigate or prosecute any alcohol or drug abuse patient.[facility] Encounter Details Date Type Department Care Team (Late st Contact Info) Description 05/15/2024 Patient Msg [facility] [place] [address] [place] [address] Eve Pedro, GAS COMBUSTION ENGINEER.PARKING LOT SPOTTER [address] [place] [address] Appointment Cancellation Request Social History [...] is lower risk 4 03/14/2023 Data from: [email or web address] Last address used for calculation [...]
--- OUTSIDE RECORDS SUMMARY | 2025-02-28 07:29 | XMS_ITS | Patient Health Record ---
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
--- OUTSIDE RECORDS SUMMARY | 2025-02-28 07:29 | XMS_ITS | Encounter Summary ---
Author Organization [facility] Address [address] [place] [address] Care Team Providers Care Home Service Technician Name Role Phone Patience Jimenez MD Primary Care Provider [phone] González Mcallister DO Unavailable [phone] Encounter Details Date Type Department Care Team (Late st Contact Info) Description 08/30/2024 Abstract [facility] [address] [place] [address] Martín Torres DO [address] [place], [facility] Social History Tobacco Use Types Packs/Day Years [...] week 03/20/2024 How often do you attend [facility] or hoahaoism services? Never 03/20/2024 Do you belong to any clubs o r organizations such as orthodoxy groups, unions, fraternal or athletic groups, or [...] and heating? Not hard at all 03/20/2024 [facility] of Occupat ional [facility] - Occupational Stress Questionnaire Answer Date Recorded [...] were you homeless or living in a nursing home (including now)? No 03/20/2024 Comments No Sex [...] AM EDT Office Visit [facility] [address] [place] [phone] Allison Tello, FAVIAN [address] [place] [phone] 05/15/2025 11:00 AM EST Office Visit [facility] [address] [place] [address] Linda Carrillo PA [address] [place], [facility] documented as of this encounter Visit Diagnoses Not on filedocumented in this encounter Care Teams Home Service Technician Relationship Specialty Start Date End Date Patience Jimenez MD [address] [facility] [place] [address] PCP - General Family Medicine 03/16/23 González Mcallister DO [address] [facility] [address] [place] [address] PCP - Medical [place] [employer] 07/10/16 07/09/99 documented as of this encounter
--- OUTSIDE RECORDS SUMMARY | 2025-02-28 07:29 | XMS_ITS | Encounter Summary ---
Author Organization [facility] Address [address] [facility] [place] [address] Care Team Providers Care Garment Manufacturer Name Role Phone Patience Jimenez MD Primary Care Provider [phone] González Mcallister DO Unavailable [phone] Encounter Details Date Type Department Care Team (Late Contact Info) Description 03/15/2023 Abstract [facility] [address] [place] [address] Linda Carrillo PA [address] [facility] [address] [place], [place] [address] Social History Tobacco Use Types Packs/Day Years [...] AM EDT Office Visit [facility] [address] [place] [address] Allison Tello, FAVIAN [address] [place] [address] 05/15/2025 11:00 AM EST Office Visit [facility] Alhaji AT[facility] [address] [place] [address] Linda Carrillo PA [address] [facility] [place] [address] documented as of this encounter Visit Diagnoses Not on filedocumented in this encounter Care Teams Garment Manufacturer Relationship Specialty Start Date End Date Patience Jimenez MD [address] [facility] [place] [address] PCP - General Family Medicine 03/16/23 González Mcallister DO [address] [facility] [facility] [address] [place] [address] PCP - Medical [place] [employer] 07/10/16 07/09/99 documented as of this encounter
--- OUTSIDE RECORDS SUMMARY | 2025-02-28 07:29 | XMS_ITS | Clinical Summary ---
Author Organization [facility] Address [address] [place] [address] Care Team Providers Care Microbiology Supervisor Name Role Phone Patience Jimenez MD Primary Care Provider [phone] González Mcallister DO Unavailable [phone] Allergies No known active allergies Medications busPIRone (Buspar) 5 MG tablet Take by mouth twice a day 10/11/19 24 Active progesterone (Prometrium) 100 MG capsuleIndicati ons:Postmenopau maddie HRT (hormone replacement therapy) Take 1 capsule (100 mg) by mouth Daily 30 capsule 11 02/21/20 25 026 Active estradiol (Climara) 0.025 MG/24HRIndicati ons:Postmenopau maddie HRT (hormone replacement therapy) Place 1 patch over 7 days on the skin 1 (one) time per week 12 patch 3 02/21/20 25 026 Active estradiol (Estrace) 0.1 MG/GM vaginal creamIndication s:Postmenopausa l HRT (hormone replacement therapy) 2g vaginal daily for 2 weeks, then 2 times weekly following initial 2 weeks 42.5 g 02/21/20 25 Active Tretinoin (Altreno) 0.05 % lotionIndicatio ns:Rhytides Apply thin layer to face at bedtime 45 g 11 10/26/19 24 025 Discontinued LORazepam (Ativan) 0.5 MG tablet Take 0.5 mg by mouth every 6 (six) hours if needed 025 Discontinued aspirin 81 MG EC tablet Daily 03/21/20 24 025 Discontinued estradiol (Estrace) 0.5 MG tabletIndicatio ns:Vaginal dryness TAKE 1 TABLET DAILY 90 tablet 3 11/06/19 25 025 Discontinued Active Problems Problem Noted Date Diagnosed Date Complex ovarian cyst 07/01/2024 Pelvic pain in female 07/01/2024 Encounter to discuss test results 07/01/2024 Well woman exam with routine gynecological exam 05/13/2024 Encounters Date Type Department Care Team Description 02/20/2025 11:30 AM EDT Office Visit [facility] [address] [place] [address] Allison Tello NP Hormone disorder (Primary Dx); Postmenopausal HRT (hormone replacement therapy) 02/20/2025 Bamboo flowsheet [facility] [address] [place] [address] Allison Tello NP 02/19/2025 Travel from Last 3 Months Immunizations Immunization [...] How often do you attend chur or rastafari services? Never 03/20/2024 Do you belong to [...] and heating? Not hard at all 03/20/2024 [employer] of Occupat ional Health - Occupational Stress [...] any time in the past 12 m [facility], were you homeless or living in a assisted (including now)? No 03/20/2024 Comments No Sex and Gender Information Value Date Recorded Sex Assigned at Female 03/16/2023 11:27 AM EDT Legal Sex Female 8:01 PM EDT Gender Identity Female 03/16/2023 11:27 AM EDT Sexual Orientation Not on file Last Filed Vital Signs Vital Sign Reading Time Taken Comments Blood Pressure 100/70 02/20/2025 11:37 AM EDT Pulse 81 03/22/2024 9:49 AM EDT Temperature 36.4 C (97.5 F) 03/22/2024 9:49 AM EDT Respiratory Rate - - Oxygen Saturation 98% 03/22/2024 9:49 AM EDT Inhaled Oxygen Concentration - - Weight 65.5 kg (144 lb 6.4 oz) 02/20/2025 11:37 AM EDT Height 160 cm (5' 3 ) 03/22/2024 9:49 AM EDT Body Mass Index 25.58 03/22/2024 9:49 AM EDT Plan of Treatment Upcoming Encounters Date Type Department Care Team (Late st Contact Info) Description 04/03/2025 9:00 AM EDT Office Visit REYES ATKINSON [address] [place] [address] [place] [address] Allison Tello, FACILITY PRACTICE SPECIALIST [address] [facility] [place] [address] 05/15/2025 11:00 AM EST Office Visit REYES ATKINSON [address] [facility] [place] [address] Linda Carrillo PA [address] [place] [address] Health Maintenance Due Date Last Done Comments CT Colonography 1970 Colonoscopy 1970 FIT 1970 FOBT 1970 Sigmoidoscopy 1970 Colorectal Cancer Screening 06/23/2024 FIT-DNA 06/23/2024 06/23/2021 Influenza Vaccine (#1) 2025 Mammogram 08/01/2025 08/01/2024, 06/12/2023 HPV/Cotest Discontinued [...] Screening digital mammography study of both breasts zackformed with 2-D and 3-D tomosynthesis imaging. Study [...] Mammogram ELECTRONICALLY SIGNED BY: Sebastien Guajardo M.D. us [facility] BI PROCEDURES Final Result * Pap Smear (05/13/2024 12:00 AM EST) Swab Cervical swab / Unknown [facility] CYTOLOGY ORDERABLES Final Re sult Performing Organization Address [facility]/ZIP Co de Phone Number EXTERNAL LAB * THINPREP PAP AND HPV MRNA E6/E7 W/RFL HPV 16,18/45 (04/06/2023 4:08 PM EDT) [facility] BLOOD ORDERABLES Final Resul t Performing Organization Address [facility]/ZIP Co de Phone Number EXTERNAL LAB from Last 3 Months or Most Recently Relevant to Health Maintenance Insurance [employer] Member Subscriber Plan / Payer (Ef fective 2022-Present) Name:Socorro Gallagher Relation to Subscriber:Spouse Name:NATALYA GALLAGHER Date of :1970 Address: [address] [place] [id number] Payer ID:Not on file Type:Not on file Address: [place] [id number] [employer] Care Teams Microbiology Supervisor Relationship Specialty Start Date End Date Patience Jimenez MD [address] [facility] [address] [place] [address] PCP - General Family Medicine 03/16/23 González Mcallister DO [address] [facility] [address] [place] [address] PCP - Medical [place] [employer] 07/10/16 07/09/99
--- OUTSIDE RECORDS SUMMARY | 2025-02-28 07:29 | XMS_ITS | Encounter Summary ---
Author Organization [facility] Address [address] [facility] [place] [address] Care Team Providers Care Mechanical Developer Prover Name Role Phone Patience Jimenez MD Primary Care Provider [phone] González Mcallister DO Unavailable [phone] Encounter Details Date Type Department Care Team (Late st Contact Info) Description 02/20/2025 Bamboo flowsheet [facility] [address] [place] [address] Allison Tello, FAVIAN [address] [place] [address] Social History Tobacco Use Types Packs/Day Years [...] week 03/20/2024 How often do you attend [facility] or druze services? Never 03/20/2024 Do you belong to any clubs o r organizations such as synagogue groups, unions, fraternal or athletic groups, or [...] and heating? Not hard at all 03/20/2024 [facility] of Occupat ional Health - Occupational [...] any time in the past 12 m [facility], were you homeless or living [...] AM EDT Office Visit REYES ATKINSON [address] [place] [address] Allison Tello, FAVIAN [address] [place] [address] 05/15/2025 11:00 AM EST Office Visit [facility] [address] [facility] [place] [address] Linda Carrillo PA [address] [place], [place] [phone] documented as of this encounter Visit Diagnoses Not on filedocumented in this encounter Care Teams Mechanical Developer Prover Relationship Specialty Start Date End Date Patience Jimenez MD [address] [place] [address] PCP - General Family Medicine 03/16/23 González Mcallister DO [address] [place] [address] [place] [address] PCP - Medical [place] [employer] 07/10/16 07/09/99 documented as of this encounter
--- OUTSIDE RECORDS SUMMARY | 2025-02-28 07:29 | XMS_ITS | Encounter Summary ---
Author Organization [facility] Address [address] [place] [address] Care Team Providers Care Manager Studio Name Role Phone Unavailable Primary Care Provider Unavailabl e Source Comments In the event this information is protected by the Federal Confidentiality of Alcohol and Drug AbusePatient Records regulations: The Federal rules restrict any use of the information to criminally investigate or prosecute any alcohol or drug abuse patient.[facility] Encounter Details Date Type Department Care Team (Late st Contact Info) Description 01/24/2025 Patient Msg HOSP MAIN H060 [address] [place] [address] Provider, Ccf Sign up to manage your digestive symptoms in between visits, covered by insurance Social History Tobacco Use Types Packs/Day Years [...] is lower risk 4 03/14/2023 Data from: https://www.neighborhoodatlas.medicine.[facility].edu/. Last address used for calculation [...]
--- OUTSIDE RECORDS SUMMARY | 2025-02-28 07:29 | XMS_ITS | Encounter Summary ---
Author Organization [facility] Address [address] [place] [address] Care Team Providers Care Register In Chancery Name Role Phone Patience Jimenez MD Primary Care Provider [phone] González Mcallister DO Unavailable [phone] Encounter Details Date Type Department Care Team (Late st Contact Info) Description 05/21/2024 Clinisync Result Encounter [facility] External Department Unsolicited Rosetta Torres DO [address] [facility] [address] [place], [place] [phone] Social History Tobacco Use Types Packs/Day Years [...] How often do you attend chur or restorationism services? Never 03/20/2024 Do you belong to any clubs o r organizations such as roman catholic groups, unions, [...] and heating? Not hard at all 03/20/2024 [facility] of Occupat ional Health - [...] any time in the past 12 m [facility], were you homeless or living in a senior living (including now)? No 03/20/2024 Comments No Sex [...] 9:00 AM EDT Office Visit REYES ATKINSON [address] [place] [address] [place] [address] Allison Tello NP [address] [facility] [place] [address] 05/15/2025 11:00 AM EST Office Visit REYES ATKINSON [address] [place] [address] Linda Carrillo PA [address] [facility] [place] [address] documented as of this encounter Procedures Procedure Name Priority Date/Time Associated Diagnosis Comments US PELVIS W/ TRANSVAGINAL 05/21/2024 3:18 PM EST documented in this encounter Results * US PELVIS W/ TRANSVAGINAL (05/21/2024 3:18 PM EST) Anatomical Region Laterality Modality Other 05/21/2024 3:18 PM EST Narrative 05/21/2024 3:20 PM EST The [address] [address] Ultrasound Report Signed Patient: YURI GALLAGHER MR#: [id number] : 1970 Acct:[id number] Age/Sex: 53 / F ADM Date: 05/20/24 Loc: [facility] Attending Dr: Rosetta Torres D.O. Ordering Physician: Rosetta Torres D.O. Date of Service: 05/20/24 Procedure(s): US pelvis w/ transvaginal Accession Number(s): [id number] cc: Rosetta Torres D.O.; DANAY BLACKMON [place] [id number] Patient Name: YURI GALLAGHER MRN: [facility]:[id number] date: 1970 Sex: F Assigned Patient Location: [facility] Current Patient Location: Accession/Order Number: [id number] Exam Date: 05/20/2024 10:58 Report Date: 05/21/2024 [...] Signed By: 05/21/24 1520 DD/ 1518 TD/TT: Teacher Adventure Education: Procedure Note Radiology, Radiologist, MD - 05/21/2024 [place] [address] Ultrasound Report Signed Patient: YURI GALLAGHER LMR#: [id number] : 1970Acct:[id number] Age/Sex: 53 / FADM Date: 05/20/24 Loc: [facility] Attending Dr: Rosetta Torres D.O. Ordering Physician: Rosetta Torres D.O. Date of Service: 05/20/24 Procedure(s): US pelvis w/ transvaginal Accession Number(s): [id number] cc: Rosetta Torres D.O.; DANAY BLACKMON [facility] [address] [place], [place] [address] Patient Name: YURI GALLAGHER MRN: [facility]:[id number] date: 1970 Sex: F Assigned Patient Location: [facility] Current Patient Location: Accession/Order Number: [id number] Exam Date: 05/20/2024 10:58 Report Date: 05/21/2024 [...] M.D. Signed By:05/21/24 1520 DD/ 1518 TD/TT: Teacher Adventure Education: us Rosetta Torres DO [facility] Final Result documented in this encounter Visit Diagnoses Not on filedocumented in this encounter Care Teams Register In Chancery Relationship Specialty Start Date End Date Patience Jimenez MD [address] [place] [address] PCP - General Family Medicine 03/16/23 González Mcallister DO [address] [facility] [address] [place] [address] PCP - Medical [place] [employer] 07/10/16 07/09/99 documented as of this encounter
--- OUTSIDE RECORDS SUMMARY | 2025-02-28 07:29 | XMS_ITS | Encounter Summary ---
Author Organization [facility] Address [address] [place] [address] Care Team Providers Care Labor Economics Teacher Name Role Phone Sandeep Mcclelland DO Primary Care Provider [phone] Encounter Details Date Type Department Care Team (Late st Contact Info) Description 03/12/2024 Orders Only [facility] Vascular Lab [address] [place] [phone] Rosaline Abdul, RN Social History Tobacco Use Types Packs/Day Years Used Date Smoking Tobacco: Never Smokeless Tobacco: Never Alcohol Use Standard Drinks/Week Comments Not Asked 0 (1 standard drink = 0.6 oz pur e alcohol) occation Comments Unknown Sex and Gender Information Value Date Recorded Sex Assigned at Not on file Legal Sex Female 8:55 AM EDT Gender Identity Not on file Sexual Orientation Not on file documented as of this encounter Plan of Treatment Not on file documented as of this encounter Visit Diagnoses Not on filedocumented in this encounter Care Teams Labor Economics Teacher Relationship Specialty Start Date End Date Sandeep [place] [address] PCP - General Internal Medicine 03/19/24 documented as of this encounter
--- OUTSIDE RECORDS SUMMARY | 2025-02-28 07:29 | XMS_ITS | Encounter Summary ---
Author Organization [facility] Address [address] [place] [address] Care Team Providers Care Onyx Chip Terrazzo Worker Name Role Phone Unavailable Primary Care Provider Unavailabl e Source Comments In the event this information is protected by the Federal Confidentiality of Alcohol and Drug AbusePatient Records regulations: The Federal rules restrict any use of the information to criminally investigate or prosecute any alcohol or drug abuse patient.[facility] Encounter Details Date Type Department Care Team (Late st Contact Info) Description 11/29/2023 Patient Msg Plastic Surgery [address] [place] [address] Oscar Melgar MD [address] [place] [address] [place] [address] Appointment Request Social History Tobacco Use Types Packs/Day Years Used Date Smoking Tobacco: Never Assessed PHQ-2 Answer Date Recorded PHQ-2 score 0 06/19/2023 Area Deprivation Index Answer Date Flaco rded National Score (1-100), lower number is lower ri sk 61 03/14/2023 State Score (1-10), lower number is lower risk 4 03/14/2023 Data from: https://www.neighborhoodatlas.medicine.[facility].edu/. Last address used for calculation [address] [...]
--- OUTSIDE RECORDS SUMMARY | 2025-02-28 07:29 | XMS_ITS | Clinical Summary ---
Author Organization [facility] Address [address] [place] [address] Care Team Providers Care Public Information Director Name Role Phone Unavailable Primary Care Provider [...] Take 40 mg by mouth. 03/22/2024 Active Encounters Date Type Department Care Team Description 01/24/2025 Patient Msg HOSP MAIN H060 [address] [place] [address] Provider, Ccf Sign up to manage your digestive symptoms in between visits, covered by insurance from Last 3 Months Social History Tobacco Use Types Packs/Day Years [...] is lower risk 4 03/14/2023 Data from: https://www.neighborhoodatlas.medicine.[facility].edu/. Last address used for calculation [address] [...] Shingrix Vaccine (2 of 2) 04/25/2023 02/28/2023 Mammogram Screening 06/12/2024 06/12/2023, Cologuard (FIT-DNA) 06/23/2024 06/23/2021 Colorectal Cancer Screening 06/23/2024 Influenza Vaccine (#1) 2025 Diabetes Screening 04/10/2027 04/10/2024, 01/30/2023 Procedures Procedure Name Priority Date/Time Associated Diagnosis Comments COMPREHENSIVE METABOLIC PANEL Routine 04/10/2024 2:21 PM EDT Abdominal pain, unspecified abdominal location from Last 3 Months or Most Recently Relevant to Health Maintenance Results * COMPREHENSIVE METABOLIC PANEL (04/10/2024 2:21 PM EDT) [facility] Protein, Total 7.7 6.3 - 8.0 g/dL 04/10/2024 10:53 PM EDT [facility] Albumin 4.5 3.9 - 4.9 g/dL 04/10/2024 10:53 PM EDT [facility] Calcium, Total 9.6 8.5 - 10.2 mg/dL 04/10/2024 10:53 PM EDT [facility] Bilirubin, Total 0.2 0.2 - 1.3 mg/dL 04/10/2024 10:53 PM EDT [facility] Alkaline Phosphatase 80 34 - 123 U/L 04/10/2024 10:53 PM EDT [facility] AST 26 13 - 35 U/L 04/10/2024 10:53 PM EDT [facility] ALT 14 7 - 38 U/L 04/10/2024 10:53 PM EDT [facility] Glucose 94 74 - 99 mg/dL 04/10/2024 10:53 PM T [facility] Comment: The [place] Diabetes Association (ADA) provides guidance for cutoff [...] Standards of Medical Care in Diabetes 2016, [place] [employer] Association. Diabetes Care. 2016.39(Suppl 1). BUN 11 7 - 21 mg/dL 04/10/2024 10:53 PM EDT [facility] Creatinine 0.78 0.58 - 0.96 mg/dL 04/10/2024 10:53 PM T [facility] Sodium 138 136 - 144 mmol/L 04/10/2024 10:53 PM EDT [facility] Potassium 4.5 3.7 - 5.1 mmol/L 04/10/2024 10:53 PM EDT [facility] Chloride 102 98 - 107 mmol/L 04/10/2024 10:53 PM EDT [facility] CO2 24 22 - 30 mmol/L 04/10/2024 10:53 PM EDT [facility] Anion Gap 12 8 - 15 mmol/L 04/10/2024 10:53 PM EDT [facility] Estimated Glomerular Filtration Rate 91 >=60 mL/min/1.7 3m 04/10/2024 10:53 PM EDT [facility] Comment:Estimated Glomerular Filtration Rate (eGFR) [...] 2:21 PM EDT 04/10/2024 2:22 PM EDT Kyle Beltran MD LABORATORY Final Result [facility] [address] [place] [address], from Last 3 Months or Most Recently Relevant to Health Maintenance Insurance [facility] PPO
--- OUTSIDE RECORDS SUMMARY | 2025-02-28 07:29 | XMS_ITS | Encounter Summary ---
Author Organization [facility] Healthcare Address [address] [place] [address] Care Team Providers Care Bail Agent Name Role Phone Patience Jimenez MD Primary Care Provider [phone] González Mcallister DO Unavailable [phone] Encounter Details Date Type Department Care Team (Latest Contact Info) Description 02/19/2025 Travel Social History Tobacco Use Types Packs/Day Years [...] often do you attend chur ch or anabaptism services? Never 03/20/2024 Do you belong to any clubs o r organizations such as sabianism groups, unions, fraternal or athletic groups, or [...] and heating? Not hard at all 03/20/2024 [facility] of Occupat ional Health - Occupational Stress [...] any time in the past 12 m [facility], were you homeless or living in a snf (including now)? No 03/20/2024 Comments No Sex [...] AM EDT Office Visit [facility] [address] [facility] [place] [address] Allison Tello, FAVIAN [address] [facility] [place] [address] 05/15/2025 11:00 AM EST Office Visit [facility] [address] [facility] [place] [place] [address] Linda Carrillo PA [address] [facility] [address] [place], [place] [phone] documented as of this encounter Visit Diagnoses Not on filedocumented in this encounter Care Teams Bail Agent Relationship Specialty Start Date End Date Patience Jimenez MD [address] [facility] [place] [address] PCP - General Family Medicine 03/16/23 González Mcallister DO [address] [facility] [address] [place] [address] PCP - Medical [place] [employer] 07/10/16 07/09/99 documented as of this encounter
--- OUTSIDE RECORDS SUMMARY | 2025-02-28 07:29 | XMS_ITS | Encounter Summary ---
Author Organization [facility] Address [address] [place] [address] Care Team Providers Care Cement Crusher Operator Name Role Phone Patience Jimenez MD Primary Care Provider [phone] González Mcallister DO Unavailable [phone] Encounter Details Date Type Department Care Team (Late st Contact Info) Description 05/24/2024 Orders Only [facility] [address] [facility] [address] [place] [phone] Sur[place], [place] [address] [facility] [place] [address] Social History Tobacco Use Types Packs/Day Years [...] How often do you attend chur or bahai services? Never 03/20/2024 Do you belong to any clubs o r organizations such as christianity groups, unions, fraternal or athletic groups, or [...] and heating? Not hard at all 03/20/2024 [facility] - [...] any time in the past 12 m [facility], were you homeless or living in a mcfp (including now)? No 03/20/2024 Comments No Sex [...] 9:00 AM EDT Office Visit REYES ATKINSON [address] [place] [address] [place] [address] Allison Tello NP [address] [facility] [place] [address] 05/15/2025 11:00 AM EST Office Visit REYES ATKINSON [address] [facility] [place] [address] Linda Carrillo PA [address] [facility] [place] [address] documented as of this encounter Procedures Procedure Name Priority Date/Time Associated Diagnosis Comments PAP SMEAR Routine 05/13/2024 12:00 AM EST documented in this encounter Results * Pap Smear (05/13/2024 12:00 AM EST) Swab Cervical swab / Unknown us [facility] ORDERABLES Final Re sult EXTERNAL LAB documented in this encounter Visit Diagnoses Not on filedocumented in this encounter Care Teams Cement Crusher Operator Relationship Specialty Start Date End Date Patience Jimenez MD [address] [place] [phone] PCP - General Family Medicine 03/16/23 González Mcallister DO [address] [facility] [address] [place] [address] PCP - Medical [place] [employer] 07/10/16 07/09/99 documented as of this encounter
--- OUTSIDE RECORDS SUMMARY | 2025-02-28 07:29 | XMS_ITS | Encounter Summary ---
Author Organization [facility] Address [address] [place] [address] Care Team Providers Care Record Maker Name Role Phone Unavailable Primary Care Provider Unavailabl e Source Comments In the event this information is protected by the Federal Confidentiality of Alcohol and Drug AbusePatient Records regulations: The Federal rules restrict any use of the information to criminally investigate or prosecute any alcohol or drug abuse patient.[facility] Encounter Details Date Type Department Care Team (Late st Contact Info) Description 04/15/2024 Get Medical Advice Gastroenterology [address] [place] [address] [place] [address] [place] [address] SCAN DONE AT [facility] Social History Tobacco Use Types Packs/Day Years [...] is lower risk 4 03/14/2023 Data from: https://www.neighborhoodatlas.[facility]/. Last address used for calculation [address] [...]
--- OUTSIDE RECORDS SUMMARY | 2025-02-28 07:29 | XMS_ITS | Encounter Summary ---
Author Organization [facility] Address [address] [facility] [address] [place] [address] Care Team Providers Care Director Independent Name Role Phone Patience Jimenez MD Primary Care Provider [phone] González Mcallister DO Unavailable [phone] Encounter Details Date Type Department Care Team (Late st Contact Info) Description 08/16/2024 Abstract [facility] [address] [facility] [place] [address] Martín Torres DO [address] [facility] [address] [place], [facility] Social History Tobacco Use Types Packs/Day [...] week 03/20/2024 How often do you attend [facility] or gnosticist services? Never 03/20/2024 Do you belong to any clubs o r organizations such as samaritan groups, unions, fraternal or athletic groups, or [...] all 03/20/2024 [facility] - Occupational Stress Questionnaire Answer Date [...] any time in the past 12 m [facility], were you homeless or living in [...] AM EDT Office Visit [facility] ATKINSON [address] [facility] [place] [phone] Allison Tello, FAVIAN [address] [facility] [place] [phone] 05/15/2025 11:00 AM EST Office Visit [facility] ATKINSON [address] [facility] [place] [address] Linda Carrillo PA [address] [facility] [address] [place], [facility]11 documented as of this encounter Visit Diagnoses Not on filedocumented in this encounter Care Teams Director Independent Relationship Specialty Start Date End Date Patience Jimenez MD [address] [facility] [place] [address] PCP - General Family Medicine 03/16/23 González Mcallister DO [address] [facility] [address] [place] [address] PCP - Medical [place] [employer] 07/10/16 07/09/99 documented as of this encounter
--- OUTSIDE RECORDS SUMMARY | 2025-02-28 07:29 | XMS_ITS | Clinical Summary ---
Author Organization [facility] Address [address] [place] [address] Care Team Providers Care Tile Designer Name Role Phone Sandeep Mcclelland DO Primary Care Provider [phone] Allergies No known active allergies Medications busPIRone (Buspar) 5 mg tablet Take 5 [...] for anxiety. Active rosuvastatin (Crestor) 20 mg tabletIndicatio ns:Abnormal stress test Take 1 tablet (20 mg) by mouth in the morning. 90 tablet 3 4 Active Additional Information Patient not taking.Reported on 04/08/2024 metoprolol succinate XL (Toprol-XL) 25 mg 24 hr tabletIndicatio ns:Abnormal stress test Take 1 tablet (25 mg) by mouth in the morning. Do not crush or chew. 90 tablet 3 4 Active Additional Information Patient not taking.Reported on 04/08/2024 pantoprazole (ProtoNix) 40 mg EC tablet Take 40 mg by mouth before breakfast. 4 Active Active Problems Problem Noted Date Diagnosed [...] 1970 FIT-DNA 1970 FOBT 1970 Sigmoidoscopy 1970 Depression Screening 1982 Hepatitis B Vaccines (1 of 3 - 19+ 3-dose series) 1989 Pneumococcal Vaccine: Pediat rics (0 to 5 Years) and At-Risk Patients (6 to 64 Years) (1 of 2 - PCV) 1989 Adult Tetanus 1992 HPV/Cotest 2000 Colorectal Cancer Screening 06/23/2022 FIT 06/23/2022 06/23/2021 Zoster Vaccines (2 of 2) 04/25/2023 02/28/2023 COVID-19 Vaccine (2 - 2023-2 5 season) 2024 11/03/2020 Influenza Vaccine (#1) 2025 Mammogram 06/12/2025 06/12/2023 Cervical Cancer Screening [...] on patient's age to complete this topic Insurance [employer] Care Teams Tile Designer Relationship Specialty Start Date End Date Sandeep Mcclelland DO [address] [place] [address] PCP - General Internal Medicine 03/19/24
--- OUTSIDE RECORDS SUMMARY | 2025-02-28 07:29 | XMS_ITS | Encounter Summary ---
Author Organization [facility] Address [address] [place] [address] Care Team Providers Care Tool Specialist Name Role Phone Patience Jimenez MD Primary Care Provider [phone] González Mcallister DO Unavailable [phone] Encounter Details Date Type Department Care Team (Late st Contact Info) Description 08/30/2024 Abstract [facility] [address] [facility] [place] [address] Martín Torres DO [address] [facility] [address] [place], [facility]11 Social History Tobacco Use Types Packs/Day Years [...] How often do you attend [facility] or scientology services? Never 03/20/2024 Do you belong to any clubs o r organizations such as evangelical groups, unions, fraternal or athletic groups, or [...] and heating? Not hard at all 03/20/2024 [facility]at ional [facility] - Occupational Stress Questionnaire Answer Date Recorded [...] any time in the past [address] [facility], were you homeless or living in a penitentiary (including now)? No 03/20/2024 Comments No Sex [...] AM EDT Office Visit [facility] ATKINSON [address] [facility] [place] [phone] Allison Tello, FAVIAN [address] [facility] [place] [phone] 05/15/2025 11:00 AM EST Office Visit [facility] ATKINSON [address] [place] [address] Linda Carrillo PA [address] [facility] [address] [place], [facility]11 documented as of this encounter Visit Diagnoses Not on filedocumented in this encounter Care Teams Tool Specialist Relationship Specialty Start Date End Date Patience Jimenez MD [address] [facility] [place] [address] PCP - General Family Medicine 03/16/23 González Mcallister DO [address] [facility] [address] [place] [address] PCP - Medical [place] [employer] 07/10/16 07/09/99 documented as of this encounter
== END 2025-02-28 07:25 | disposition home or self-care (01) ==
LOC: LAB 07:26
PROVIDERS: PCP Nurse Practitioner Family; Visit Provider Nurse Practitioner Family
DX: E34.9 Endocrine disorder, unspecified (principal)
CPT/HCPCS: 36415; 84402; 84403

== ENCOUNTER 2025-05-17 08:07 | Outpatient (OUT) | payer OTHER, SELFPAY ==
--- OUTSIDE RECORDS SUMMARY | 2025-05-15 11:10 | XMS_ITS | Encounter Summary ---
Author Organization [facility] Address [address] [place] [address] Care Team Providers Care Supervisor Model Making Name Role Phone Patience Jimenez MD Primary Care Provider [phone] González Mcallister DO Unavailable [phone] Reason for Visit * ReasonCommentsSkin CheckFollow-up Encounter Details DateTypeDepartmentCare Team (Latest Contact Info)Ihmdgjqpcwn52/06/2025 11:10 AM ESTOffice Visit [facility] [address] [facility] [address] [place] [address] Bebe Chang, SENIOR DATA WAREHOUSE ARCHITECT-APPLICATIONS INSTRUCTOR [address] [facility] [address] [place] [address] Melanocytic nevus of lower extremity, unspecified laterality (Primary Dx); Melanocytic nevus of trunk; Lentigines; Seborrheic keratosis; Other rosacea; Idiopathic guttate hypomelanosis; Rhytides; Seborrheic keratosis, inflamed; Inflamed seborrheic keratosis Social History Tobacco UseTypesPacks/DayYears UsedDateSmoking Tobacco: NeverSmokeless Tobacco: Never Tobacco Cessation:Counseling Given: Not Answered Alcohol UseStandard Drinks/WeekCommentsYes0 (1 standard drink = 0.6 oz pure alcohol)1-2 drinks less than monthly in the past year, Caffeine intake: 1-2 cups per day [id number] Health LiteracyAnswerDate RecordedHow often do you need to have someone help you when you read instructions, pamphlets, or other written material from your doctor or pharmacy?Never03/20/2024Social Connection and Isolation PanelAnswerDate RecordedIn a typical week, how many times do you talk on the phone with family, friends, or neighbors?More than three times a week 03/20/2024How often do you get together with friends or relatives?Once a week 03/20/2024How often do you attend oriental orthodox or jain services?Never03/20/2024o you belong to any clubs or organizations such as oriental orthodox groups, unions, fraternal or athletic groups, or school groups?No03/20/2024How often do you attend meetings of the clubs or organizations you belong to?Never03/20/2024re you , , , , never , or living with a partner?Kvoupod4003/20/2024UDIT-CAnswerDate RecordedQ1: How often do you have a drink containing alcohol?2-4 times a month03/20/2024Q2: How many drinks containing alcohol do you have on a typical day when you are drinking?1 or 2 03/20/2024Q3: How often do you have six or more drinks on one occasion?Never 03/20/2024Overall Financial Resource Strain (CARDIA)AnswerDate RecordedHow hard is it for you to pay for the very basics like food, housing, medical care, and heating?Not hard at all03/20/2024[facility] - Occupational Stress QuestionnaireAnswerDate RecordedDo you feel stress - tense, restless, nervous, or anxious, or unable to sleep at night because yourmind is troubled all the time - these days?To some qeumpj7303/20/2024Exercise Vital Sign AnswerDate RecordedOn average, how many days per week do you engage in moderate to strenuous exercise (like a brisk walk)?7 days03/20/2024On average, how many minutes do you engage in exercise at this level?60 min03/20/2024Hunger Vital SignAnswerDate RecordedWithin the past 12 months, you worried that your food would run out before you got the money to buymore.Never true03/20/2024Within the past 12 months, the food you bought just didn't last and you didn't have money to get more.Never true03/20/2024RAPARE - TransportationAnswerDate RecordedIn the past 12 months, has lack of transportation kept you from medical appointments or from getting medications?No03/20/2024In the past 12 months, has lack of transportation kept you from meetings, work, or from getting things needed for daily living?No03/20/2024Housing Stability Vital SignAnswerDate RecordedIn the last 12 months, was there a time when you were not able to pay the mortgage or rent on time?No03/20/2024Number of Times Moved in the Last Year Not on file03/20/2024t any time in the past 12 months, were you homeless or living in a penitentiary (including now)?No03/20/2024CommentsNoSex and Gender InformationValueDate RecordedSex Assigned at GtkagZwjjlb67/07/2023 11:27 AM EDT Legal KihSzwbkr97/15/2023 8:01 PM EDTGender EnbyguzjRmcxim88/07/2023 11:27 AM EDTSexual OrientationNot on filedocumented as of this encounter Progress Notes * Bebe Chang, SENIOR DATA WAREHOUSE ARCHITECT-APPLICATIONS INSTRUCTOR - 05/15/2025 11:10 AM EST Skin Check Location: Patient requests a full body skin examination Dermatologic history: history of Actinic Keratosis Last visit: 1 year ago Established patient Follow up Diagnosis: rhytides Location: face Last visit: 1 year ago Symptoms: fine lines and even tones skin Current treatment: tretinoin 0.5% lotion every day in All pertinent medical history, medications, and allergies were reviewed. General Exam: alert, oriented to person, place, and time, normal affect, well appearing Unaccompanied Areas not examined despite medical recommendation: Scalp, Examined Right leg Examined Head, Face Examined Left leg Examined Neck Examined Right foot Examined Chest Examined Patient kept bra on Left foot Examined Back Examined Buttocks Examined Patient kept underwear on Abdomen Examined Digits,nails: Examined Right arm Examined Left arm Examined Lymphatics: Not examined Hands Examined Skin Exam 1. MELANOCYTIC NEVUS OF LOWER EXTREMITY, UNSPECIFIED LATERALITY Generalized Scattered benign appearing, regular brown to light brown melanocytic papules and macules with similar morphology Counseled regarding these benign growths. Rarely, a nevus can develop into malignant melanoma, so any changing nevi should be promptly re-evaluated. 2. MELANOCYTIC NEVUS OF TRUNK Generalized Scattered benign appearing, regular brown to light brown melanocytic papules and macules with similar morphology Counseled regarding these benign growths. Rarely, a nevus can develop into malignant melanoma, so any changing nevi should be promptly re-evaluated. 3. LENTIGINES Generalized Scattered calabrese macules in sun-exposed areas. The patient was informed that lentigines are benign pigmented lesions that occur on sun-exposed andsun-damaged skin. No treatment is necessary. Recommended regular use of broad spectrum sunscreen SPF 30 or higher 4. SEBORRHEIC KERATOSIS Generalized Stuck on verrucous, variably pigmented papules and plaques. Patient was counseled regarding these benign growths. Removal is normally not necessary, but they may be removed if they are symptomatic or for cosmetic reasons. 5. OTHER ROSACEA Left Buccal Cheek, Right Buccal Cheek Mid face erythema with telangiectasias + scattered inflammatory papules/pustules. Flaring today The patient was informed that rosacea a chronic condition that can be controlled but not cured. Theappearance of redness and pimples can often be improved topical medications. The patient was informed that telangiectasia is common and can be improved with laser treatment. Recommended broad spectrum sunscreen with SPF 30 or higher and sun protected clothing. Patient declined treatment today. 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 7. RHYTIDES Head - Anterior (Face) Fine lines and wrinkles uneven skintone Continue tretinoin 0.05% lotion apply to face daily in HS. Recommended micro- needling with or without PRP, explained in detailed. Educational handout provided and pricing provided to patient. - tretinoin (Retin-A) 0.05 % cream - Head - Anterior (Face) - Apply 0.7 g to the face, once daily at evening/night time, 30 day supply 8. SEBORRHEIC KERATOSIS, INFLAMED (3) Left Inguinal Area, Left Upper Back, Right Anterior Mandible [place] and brown stuck on verrucous scaly papule with surrounding erythema The patient was informed that symptomatic seborrheic keratoses are benign growths that become inflamed, itchy, tender, traumatized, caught on clothing, or bleed. Symptomatic lesions can be treated with cryotherapy or curretage. Thicker lesions treated with cryotherapy may require more than one treatment. The patient was instructed to notify the office if abnormal redness or tenderness develops atthe treatment site. Cryotherapy today, see procedure note. Diagnosis: Inflamed seborrheic keratosis Indication: Inflamed Consent: Verbal consent was obtained and risks were discussed, including, but not limited to risks of scarring, darker or criminal investigative agent pigmentary changes, recurrence, incomplete removal and infection. Method: Liquid nitrogen was used to treat the lesion(s) with two 5-10 second freeze-thaw cycles Number of lesions treated: 3 Post-procedure instructions: Instructions were given orally and in writing. The office will be contacted if the lesion fails to resolve despite treatment, or if a side effect develops such as abnormal crusting, scabbing, redness or tenderness - Cryotherapy, skin lesion - Left Inguinal Area, Left Upper Back, Right Anterior Mandible 9. INFLAMED SEBORRHEIC KERATOSIS (3) Dorsum of Nose, Mid Forehead, Right Forehead Inflamed seborrheic keratoses: pink and brown stuck on verrucous scaly papule with surrounding erythema and bloody crust. The patient was informed that symptomatic seborrheic keratoses are benign growths that become inflamed, itchy, tender, traumatized, caught on clothing, or bleed. Symptomatic lesions can be treated with cryotherapy or curretage. Thicker lesions treated with cryotherapy may require more than one treatment. The patient was instructed to notify the office if abnormal redness or tenderness develops atthe treatment site. Cryotherapy today, see procedure note. Diagnosis: Inflamed seborrheic keratosis Indication: Inflamed Consent: Verbal consent was obtained and risks were discussed, including, but not limited to risks of scarring, darker or criminal investigative agent pigmentary changes, recurrence, incomplete removal and infection. Method: Liquid nitrogen was used to treat the lesion(s) with two 5-10 second freeze-thaw cycles Number of lesions treated: 3 Post-procedure instructions: Instructions were given orally and in writing. The office will be contacted if the lesion fails to resolve despite treatment, or if a side effect develops such as abnormal crusting, scabbing, redness or tenderness - Cryotherapy, skin lesion - Dorsum of Nose, Mid Forehead, Right Forehead Next Visit: 1 year documented in this encounter Plan of Treatment DateTypeDepartmentCare Team (Latest Contact Info)Ldpyastqbsd56/09/2026 4:00 PM ESTOffice Visit [facility] [address] [place] [address] Bebe Chang APRN-CNP [address] [place] [address] documented as of this encounter Procedures Procedure NamePriorityDate/TimeAssociated DiagnosisCommentsCRYOTHERAPY SKIN KPGRGWNfmwrxw54/06/2025 11:22 AM EST Seborrheic keratosis, inflamed CRYOTHERAPY SKIN TKCPDFHzewsyz02/06/2025 11:20 AM EST Inflamed seborrheic keratosis documented in this encounter Results * Cryotherapy, skin lesion (05/15/2025 11:22 AM EST) Narrative Authorizing ProviderResult TypeResult StatusNatalie A Charlene SENIOR DATA WAREHOUSE ARCHITECT-CNPDERM PROCEDURE ORDERABLESFinal Result * Cryotherapy, skin lesion (05/15/2025 11:20 AM EST) Narrative Authorizing ProviderResult TypeResult StatusNatalie A Charlene LEAVITT-CNPDERM PROCEDURE ORDERABLESFinal Result documented in this encounter Visit Diagnoses Diagnosis Melanocytic nevus of lower extremity, unspecified laterality- Primary Melanocytic nevus of trunk Benign neoplasm of skin of trunk, except scrotum Lentigines Seborrheic keratosis Other rosacea Idiopathic guttate hypomelanosis Other dyschromia Rhytides Seborrheic keratosis, inflamed Inflamed seborrheic keratosis documented in this encounter Care Teams Team MemberRelationshipSpecialtyStart DateEnd Date Patience Jimenez MD [address] [facility] [place] [address] PCP - GeneralFamily Medicine03/16/23 González Mcallister DO [address] [place] [address] PCP - Medical [place] [employer]07/10/1711documented as of this encounter
--- OUTSIDE RECORDS SUMMARY | 2025-05-16 03:56 | XMS_ITS | Continuity of Care Document ---
Author Organization [facility] Address [address] [place] [address] Phone Care Team Providers Care Tractor Mechanic Apprentice Name Role Phone Genevieve Feng APRN Primary Care Provider Allison Tello APRN Attending Provider Genevieve Feng APRN Attending Provider Care Teams Patient Care Team Team Status: Active Member Role/Relationship Status Dates Genevieve Feng APRN ELEVATOR DISPATCHER-C Primary Care Provider Active Genevieve Feng APRN NP-CPrimary Care ProviderActive Patient Care Team Team Status: Active Member Role/Relationship Status Dates Genevieve Feng APRN ELEVATOR DISPATCHER-C Primary Care Provider Active Start: February 28, 2025 Allison Tello APRN ELEVATOR DISPATCHER-CAttending ProviderActiveStart: February 28, 2025 Patient Care Team Team Status: Inactive Member Role/Relationship Status Dates Genevieve Feng APRN ELEVATOR DISPATCHER-C Primary Care Provider Active Start: May End: May 16, 2025Genevieve Feng APRN ELEVATOR DISPATCHER-CAttending ProviderActive Start: May 16, 2025 End: May 16, 2025 Chief Complaint and Reason for Visit Chief Complaint Admit Date Pre Surgical Clearance May 16 8:22am Reason for Visit Admit Date Pre-op evaluation May 16, 2025 8 :22am Allergies, Adverse Reactions, Alerts Allergen Type Severity Reaction Last Updated Verified Status No Known Allergies Allergy Unknown May 16, 2025 8:23amYesActive Social History Smoking Status Status Start Date End Date Date of Observa tion Never smoked tobacco (finding) May 02, 2024 10:29am Observation Status Observation Response Date of Response Legal Sex Female (finding) Sex Assigned At BirthFemaleMay 1970Sexual OrientationUnknownUnknownUnknown Family History Relationship Condition Age at Onset Recorded Date/T valentina father Unknown Heart diseaseUnknown Problems Active Problems Problem Diagnosis/Recorded Date Onset Date Stat us UTI (urinary tract infection) April 02, 2024 8:2 7am Unknown Active Family history of heart dise ase in male family member before age 55 February 19, 2024 3:10pm Unknown Ac tive Thrush April 05, 2024 8:05am Unknown Active Palpitations October 12, 2023 7:45am Unknown Activ e Dizziness February 19, 2024 3:09pm Unknown Act star Upper abdominal pain May 01, 2024 7:59am Unknown Active Screening, deficiency anemia, iron October 12, 2023 7:4 4am Unknown Active Anxiety September 14, 2023 7:17am January 06, 2015 Ac tive Chest wall pain March 24, 2024 8:36am Unknown Active Wellness examination October 12, 2023 7:43am Unknown Active Screening for metabolic disorder October 12, 2023 7:44a m Unknown Active Abnormal stress test February 28, 2024 9:54am Unknown Active Screening for lipid disorders October 12, 2023 7:44am U nknown Active Pre-op evaluation September 29, 2024 2:11pm Unknown Active Myocardial bridge March 21, 2024 8:12am Unknown Active Bloating February 26, 2024 1:00pm Unknown Act star Chest tightness February 19, 2024 3:10pm Unknown Active Abdominal pain February 26, 2024 12:57pm Unknown Active Medications Medication Status Dose Units Route Directions Qty Days Refills S tart Date Stop Date End Date Reason(s) Instructions Adherence Fluconazole 150 mg tablet Discontinued 150 MG PO Daily 5 5 0 April 04, 2024 11:00pm May 01, 2024 8:03amThrush Candidal stomatitisTake 1st dose at onset of symptoms then repeat in 3 days if continued symptomsBuspirone 5 mg tabletDiscontinued0.ROUTE.BFJJQPS4071Xywykca 2023 1:31pmJanuary 2024 11:07amAnxiety Anxiety disorder, unspecifiedTAKE 1 TABLET TWICE DAILYBuspirone 5 mg tablet Discontinued0.ROUTE.WZOSSTR1874Gbklzgh 2024 11:07amMarch 2024 2:53pm Anxiety Anxiety disorder, unspecifiedTAKE 1 TABLET TWICE DAILYBuspirone 10 mg tablet Hdunyj64ZQFEXlbfp tysmi256854Ymf 2024 6:58amAnxiety Anxiety disorder, unspecifiedComplies with drug therapyBaclofen 10 mg tablet Xwojrdncqexr93VYSHCchmbCuftz 2023 12:00amApril 2023 7:30amEstradiol 0.5 mg tabletActive0.5MGPODailyMarch 2023 12:00amComplies with drug therapy Buspirone 5 mg mxcairGxjdaeihhuge3RCURVxjnl zukub92194Qylqm 2023 12:00am Lizeth 2023 7:53amAnxiety Anxiety disorder, unspecifiedLorazepam (Ativan) 0.5 mg tabletActive0.5MGPODaily as needed for wjknsdf45544Bamsv 2023 12:00amAnxiety Anxiety disorder, unspecifiedComplies with drug therapyBuspirone 5 mg tablet Djlhqoruchij1UXXDRebsb ecvqa696827Moqfx 2023 7:51amOctober 2023 1:31pmAnxiety Anxiety disorder, unspecifiedAspirin (Adult Aspirin Regimen) 81 mg tablet,delayed release (DR/EC)Ptirzq53GROUGkmnkFakqoxjcn 2023 11:00pm Complies with drug therapyPantoprazole 40 mg tablet,delayed release (DR/EC) Hgjixcuzwdnc15PISTOrknoJuebvrv 2023 11:00pmMarch 2024 8:38amBaclofen 5 mg gejxxkKfdbdxohhvhu5CDBSHgmcw times dailyOct2023 11:00pmMarch 2024 8:38amSulfamethoxazole-Trimethoprim (Bactrim Ds) 800-160 mg tablet Oivvrtkeanuh7BWVBWDcdua wigcb0897Gqsvoteml 2023 11:00pmOctober 2023 8:04amUrinary tract infection Urinary tract infection, site not specifiedPhenazopyridine (Pyridium) 200 mg sqszcgYmxqiejjwzak451CUFELpbih times zyrkt11Hqffsbuff 2023 11:00pmOctober 2023 8:04amUrinary tract infection Urinary tract infection, site not specifiedPantoprazole 40 mg tablet,delayed release (DR/EC)Cdvjyklbmxlr68KZZLHtibd46678Yxzkz 2024 11:00pmMarch 2024 2:34pmBuspirone 10 mg nskocsGtpzfhgpsvui85YVLOVayxr ceoyx814105Mpcvw 2024 2:52pmMay 2024 6:59amAnxiety Anxiety disorder, unspecified Immunizations Immunization Event Date Not Given Reason Dose Number Trademark Attorney Lot Number Reason(s) Given Vaccine Information Statement (VIS) Detail Administration Location COVID-19 Ad26.COV2.S ([employer]) November 03, 2020 Zoster Vaccine Recombinant, AdjuvantedAugu2022 Relevant Diagnostic Tests and/or Laboratory Data Laboratory Results Test Collection Date/Time Result Date/Time Result Interpretation Reference Range Result Comment Performing Site Testosterone Level February 28, 2025 6:44am February 28, 025 6:44am 27 ng/dL 4-50Free TestosteroneAugust 2024 6:44amAugust 2024 6:44am1.1 pg/mL 0.0-4.2Performed at: [facility] [address] [id number] Director: Kiko Mendoza PhD, Phone: [phone] at: [facility] Lab[address] [id number] Director: Katharina Wylie MD, Phone: [phone] Vital Signs Vital Reading Result Reference Range Collection Date/Time Height 63 [in_i] May 16, 2025 8:07rlUulpge38.31 kgNov2024 8:23amHeart Rate78 /qqt91-731Tsswlixj 7th, 2025 8:23amRespiratory rate14 /cqh70-15Ztqfzppa 7th, 2025 8:23amOxygen saturation by Pulse afshrift49 %95-100May 16, 2025 8:23amBP Zfbilbas335 mm[Hg]100-140May 16, 2025 8:23amBP Otwvqhfko25 mm[Hg] 60-100May 16, 2025 8:23amBMI (Body Mass Index)25.4 kg/m0WrzxttsoMay 16, 2025 8:23am Advance Directives Advance Directive Response Recorded Date/ Time Advance Directives No March 8:01am Insurance Providers Guarantor Missy Gallagher Address [address] [facility] [address] [facility] [address]Vlfpgub Info.Home Phone: Payer Group Member ID Coverage Type Subscriber Relationship to Subscriber Effective Date Expiration Date MMO Id: [id number] Andrews Id: [id number] [address] [facility] [address] [facility] [address] Home Phone: Regular Insurance [address] [place] [address] Work Phone: Id: [id number] Elliott Id: [id number] [id number] [facility] [address] [facility] [address] Home Phone: Encounters Encounter Location(s) Arrival/Admit Date Discharge/Departure Date Discharge/Departure Disposition Provider(s) Non-patient / Non-visit -[facility] Professional Ankit John ugust 2024 7:44am Allison Tello APRN CNPDeparted Physician/Provider [facility] 8:54amDischarged to home care or self care (routine discharge)Genevieve Feng APRN CNP Recent Diagnosis Onset Date Admit Date Pre-op evaluation Unknown May 16, 2025 8:22am Assessments Diagnosis Onset Date Resolution Status Admit Date Pre-op evaluation acuteMay 16, 2025 8:22am Plan of Treatment Future Tests Future scheduled test information is unavailable Pending Tests Test Name Ordered Date Scheduled Date Comprehensive Metabolic Panel May 16, 2025 8:35am XR chest 2V*May 16, 2025 8:35amECG 12 lead ECGMay 16, 2025 8:35am Future Visits Future appointment information is unavailable Future Procedures Procedure Name Ordered Date Scheduled Date Complete Blood Count Auto Diff May 16 8:35am Future Medications Future medication information is unavailable Patient Instructions Patient instructions are unavailable
--- NOTE | 2025-05-17 | XR_ITS ---
The [address] [address] Patient Name: YURI SMITH MRN: [id number] date: 1970 Sex: F Assigned Patient Location: LAB Current Patient Location: LAB Accession/Order Number: [id number] Exam Date: 05/17/2025 08:20 Report Date: 05/17/2025 09:14 At the request of: DANAY BLACKMON Procedure: XR chest 2V XR chest 2V 05/17/2025 8:29 AM SIGNS AND SYMPTOMS: ^Z01.818 Encounter for preprocedural exam PROTOCOL: Frontal and lateral graphs of the chest COMPARISON: 08/15/2024 FINDINGS: The trachea is midline. The heart and mediastinal structures are within normal limits. The lung parenchyma is clear. The bony thorax is intact. XR/XR chest 2V IMPRESSION: No acute cardiopulmonary pathology. Impression dictated by: Austin Marsh M.D. 05/17/2025 9:14 AM Dictation Location: [place] [address] Electronically authenticated by: [id number] Y Date: 05/17/2025 09:14
--- OUTSIDE RECORDS SUMMARY | 2025-05-17 08:13 | XMS_ITS | Encounter Summary ---
Author Organization [facility] Address [address] [place] [address] Care Team Providers Care Traverse Rod Assembler Name Role Phone Patience Jimenez MD Primary Care Provider [phone] González Mcallister DO Unavailable [phone] Encounter Details DateTypeDepartmentCare Team (Latest Contact Info)Cxgzwlssssk71/06/2025amboo flowsheet [facility] [address] [place] [address] Bebe Chang, MEDICAL MALPRACTICE PARALEGAL-ENVIRONMENTAL COMPLIANCE INSPECTOR [address] [place] [address] Social History Tobacco UseTypesPacks/DayYears UsedDateSmoking Tobacco: NeverSmokeless Tobacco: NeverAlcohol UseStandard Drinks/WeekCommentsYes0 (1 standard drink = 0.6 oz pure alcohol)1-2 drinks less than monthly in the past year, Caffeine intake: 1-2 cups per day qastdaT6266 Health LiteracyAnswerDate RecordedHow often do you need [...] a week 03/20/2024How often do you attend episcopal or jain services?Never4Do you belong to any clubs or organizations such as episcopal groups, unions, fraternal or athletic groups, or school groups?No03/20/2024How often do you attend meetings of the clubs or organizations you belong to?Never03/20/2024re you , , , , never , or living with a partner?Mjrdfla9303/20/2024UDIT-CAnswerDate RecordedQ1: How often do you have a [...] housing, medical care, and heating?Not hard at all03/20/2024[facility] [place] of Occupational Health - Occupational Stress QuestionnaireAnswerDate RecordedDo you feel stress - tense, restless, nervous, or anxious, or unable to sleep at night because yourmind is troubled all the time - these days?To some roxdxz9103/20/2024Exercise Vital Sign AnswerDate RecordedOn average, how many [...] Moved in the Last Year Not on file4At any time in the past 12 months, were you homeless or living in a correction (including now)?No4CommentsNoSex and Gender InformationValueDate RecordedSex Assigned at ZhlhkZjuvyh96/07/2023 11:27 AM EDT Legal LbrMwtdqc26/15/2023 8:01 PM EDTGender CdbipabaHdompj18/07/2023 11:27 AM EDTSexual OrientationNot on filedocumented as of this encounter Plan of Treatment DateTypeDepartmentCare Team (Latest Contact Info)Hqggpalywwc85/09/2026 4:00 PM ESTOffice Visit [facility] [place] [facility] [address] [place] [address] Bebe Chang, MEDICAL MALPRACTICE PARALEGAL-ENVIRONMENTAL COMPLIANCE INSPECTOR [address] [place] [address] documented as of this encounter Visit Diagnoses Not on filedocumented in this encounter Care Teams Team MemberRelationshipSpecialtyStart DateEnd Date Patience Jimenez MD [address] [place] [address] PCP - GeneralFamily Medicine03/16/23 González Mcallister DO [address] [place] [address] PCP - Medical [place] [employer]07/10/1711documented as of this encounter
--- OUTSIDE RECORDS SUMMARY | 2025-05-17 08:13 | XMS_ITS | Clinical Summary ---
Author Organization [facility] Address [address] [place] [address] Care Team Providers Care Tinter Photograph Name Role Phone Patience Jimenez MD Primary Care Provider [phone] González Mcallister DO Unavailable [phone] Allergies No known active allergies Medications MedicationSigDispense QuantityRefillsLast FilledStart DateEnd DateStatus busPIRone (Buspar) 5 MG tablet Take by mouth twice a day4Active progesterone (Prometrium) 100 MG capsule Indications:Postmenopausal HRT (hormone replacement therapy)Take 1 capsule (100 mg) by mouth Daily 30 capsule 1108///6Active estradiol (Climara) 0.025 MG/24HR Indications:Postmenopausal HRT (hormone replacement therapy)Place 1 patch over 7 days on the skin 1 (one) time per week 12 patch 308/14//6Active estradiol (Estrace) 0.1 MG/GM vaginal cream Indications:Postmenopausal HRT (hormone replacement therapy)2g vaginal daily for 2 weeks, then 2 times weekly following initial 2 weeks 42.5 g 5Active LORazepam (Ativan) 0.5 MG tablet Indications:Anxiety, generalizedTake 1 tablet (0.5 mg) by mouth every 6 (six) hours if needed for anxiety for up to 10 days 15 tablet 5Active tretinoin (Retin-A) 0.05 % cream Indications:RhytidesApply 0.7 g to the face, once daily at evening/night time, 30 day supply 20 g 5Active Active Problems ProblemNoted DateDiagnosed DateComplex ovarian cyst12/23/2024Pelvic pain in gcwkls6007/01/2024Encounter to discuss test ggozkon3607/01/2024Well woman exam with routine gynecological exam05/13/2024 Encounters DateTypeDepartmentCare HzzyJrohcjuuqnp96/06/2025 11:10 AM ESTOffice Visit [facility] [place] [facility] [address] [place] [address] Bebe Chang, DOUGHNUT MACHINE OPERATOR HELPER-AUTO INSPECTOR Melanocytic nevus of lower extremity, unspecified laterality (Primary Dx); Melanocytic nevus of trunk; Lentigines; Seborrheic keratosis; Other rosacea; Idiopathic guttate hypomelanosis; Rhytides; Seborrheic keratosis, inflamed; Inflamed seborrheic gjjuxyzkj08/06/2025amboo flowsheet [facility] [place] [facility] [address] [place] [address] Bebe Chang, DAGMAR-AUTO INSPECTOR 05/15/20254426Koalwa77/25/2025 9:00 AM EDTOffice Visit [facility] [place] [facility] [address] [facility] [place] [address] Allison Tello NP Postmenopausal HRT (hormone replacement therapy) (Primary Dx); Anxiety, xpedvbsqrkz91/25/9517Rimeye74/22/2025linisync Result Encounter [facility] External Department Unsolicited Allison Tello NP 02/20/2025 11:30 AM EDTOffice Visit [facility] [place] [facility] [address] [place] [address] Allison Tello NP Hormone disorder (Primary Dx); Postmenopausal HRT (hormone replacement therapy)02/20/2025amboo flowsheet [facility] [address] [place] [address] Allison Tello NP 02/19/2025Travelfrom Last 3 Months Immunizations ImmunizationAdministration DatesNext DueZoster, Odheluhwmxk55/22/2023 Family History Medical HistoryRelationNameCommentsHeart diseaseFatherMelanomaNeg HxRelationName ZashlyYmijztpbErmamgbv4LgpgkvYaksasdnQvcekxVbtzdFrwezq5Xoq8 Social History Tobacco UseTypesPacks/DayYears UsedDateSmoking Tobacco: NeverSmokeless Tobacco: Never Tobacco Cessation:Counseling Given: Not Answered Alcohol UseStandard Drinks/WeekCommentsYes0 (1 standard drink = 0.6 oz pure alcohol)1-2 drinks less than monthly in the past year, Caffeine intake: 1-2 cups per day lkloxcH2707 Health LiteracyAnswerDate RecordedHow often do you need [...] a week 03/20/2024How often do you attend denominational or orthodox services?Never03/20/2024o you belong to any clubs or organizations such as denominational groups, unions, fraternal or athletic groups, or school groups?No03/20/2024How often do you attend meetings of the clubs or organizations you belong to?Never03/20/2024re you , , , , never , or living with a partner?Laxjgmd0003/20/2024UDIT-CAnswerDate RecordedQ1: How often do you have a [...] housing, medical care, and heating?Not hard at all03/20/2024[facility] [place] of Occupational Health - Occupational Stress QuestionnaireAnswerDate RecordedDo you feel stress - tense, restless, nervous, or anxious, or unable to sleep at night because yourmind is troubled all the time - these days?To some gxewxc1503/20/2024Exercise Vital Sign AnswerDate RecordedOn average, how many [...] homeless or living in a correction (including now)?No03/20/2024CommentsNoSex and Gender InformationValueDate RecordedSex Assigned at PrhdcYqgqsj94/07/2023 11:27 AM EDT Legal BbqRqlpxg84/15/2023 8:01 PM EDTGender CovkuzaaRjdcmb75/07/2023 11:27 AM EDTSexual OrientationNot on file Last Filed Vital Signs Vital SignReadingTime TakenCommentsBlood Vfduzuxz237/7008 11:37 AM EDT Yvhnx175303/22/2024 9:49 AM HGKVdqqwsfyzso74.4 ??C (97.5 ??F)03/22/2024 9:49 AM EDTRespiratory Rate--Oxygen Iylrxmocth37%03/22/2024 9:49 AM EDTInhaled Oxygen Concentration--Mbpiai63.5 kg (144 lb 6.4 oz)02/20/2025 11:37 AM IXPWqlwor348 cm (5' 3 )03/22/2024 9:49 AM EDTBody Mass Index25.58003/22/2024 9:49 AM EDT Plan of Treatment DateTypeDepartmentCare Team (Latest Contact Info)Jnvzcjzzmqs05/09/2026 4:00 PM ESTOffice Visit [facility] [address] [place] [address] Bebe Chang, DAGMAR-AUTO INSPECTOR [address] [place] [address] Health MaintenanceDue DateLast DoneCommentsCT Ltopivbniabr94/30/1971Colonoscopy 1970FIT1970FOBT12/06/19706610Ziijjgoclfmuu66/30/1971Colorectal Cancer Tbdjjlliz31/15/2024FIT-DNAOVID-19 Vaccine ( season)504/Influenza Vaccine (#1)03/10/20254190Nworedcna62/23/2026 08/01/2024, 06/12/2023HPV/JrzmguRxakkltazvcd96/28/2023Cervical Cancer Screening DiscontinuedPap EsrnqLnutwipkchsr62/04/2024Pneumococcal Vaccine: Pediatrics (0 to 5 Years) and At-Risk Patients (6 to 64 Years)Aged OutNo longer eligible based on patient's age to complete this topic Procedures Procedure NamePriorityDate/TimeAssociated DiagnosisCommentsCRYOTHERAPY SKIN HZACOURhfedss52/06/2025 11:22 AM EST Seborrheic keratosis, inflamed CRYOTHERAPY SKIN WRMCHCFyrfwwj96/06/2025 11:20 AM EST Inflamed seborrheic keratosis SRMCOH TESTOSTERONE FREE/TOT WXGXXJGCtyvqoo04/22/2025 7:44 AM EDT BI MAMMOGRAM SCREENING TOMOSYNTHESIS ADUXRWKUDJiqyuqf04/23/2025 8:36 AM EST Well woman exam with routine gynecological exam Other screening mammogram PAP OFLHZZnzgvpx75/04/2024 12:00 AM ESTTHINPREP PAP AND HPV MRNA E6/E7 W/RFL HPV 16,18/54Bcasjde48/28/2023 4:08 PM EDT Well woman exam with routine gynecological exam from Last 3 Months or Most Recently Relevant to Health Maintenance Results * Cryotherapy, skin lesion (05/15/2025 11:22 AM EST) Narrative Authorizing ProviderResult TypeResult StatusNatalie A Felter DOUGHNUT MACHINE OPERATOR HELPER-CNPDERM PROCEDURE ORDERABLESFinal Result * Cryotherapy, skin lesion (05/15/2025 11:20 AM EST) Narrative Authorizing ProviderResult TypeResult StatusNatalie A Felter DOUGHNUT MACHINE OPERATOR HELPER-CNPDERM PROCEDURE ORDERABLESFinal Result * SRMCOH TESTOSTERONE FREE/TOT EQUILIB (02/28/2025 7:44 AM EDT)ComponentValueRef RangeTest MethodAnalysis TimePerformed AtPathologist TaemgvbjsFBIGAGBINTBP697 - 50 ng/dLTBHFREE TESTOSTERONE(DIRECT)1.10.0 - 4.2 pg/mLTBHComment: Performed at: ??CB - [facility] [address] ??[id number] Muck Miner Blasting: Kiko Mendoza PhD, Phone: ??[phone] Performed at: ??BN - [facility] [address] ??[id number] Muck Miner Blasting: Katharina Wylie MD, Phone: ??[phone] Specimen (Source)Anatomical Location / LateralityCollection Method / Volume Collection TimeReceived Time02/28/2025 7:44 AM EDT02/28/2025 7:45 AM EDT Narrative [facility] - 03/07/2025 10:09 AM EDT Authorizing ProviderResult TypeResult StatusAllison Tello NPCLINISYNCFinal ResultPerforming OrganizationAddressCity/State/ZIP CodePhone Number CLINIS[facility]NC TB * Bilateral screening mammogram with tomosynthesis (08/01/2024 8:36 AM EST) Anatomical RegionLateralityModalityBreastBilateralMammographySpecimen (Source) Anatomical Location / LateralityCollection Method / VolumeCollection Time Received Time08/01/2024 10:25 AM EST Impressions 08/01/2024 10:36 AM EST [...] thickening which would be suggestive of malignancy. ?? A few benign-appearing calcifications are seen bilaterally. Procedure Note Sebastien Guajrado MD - 08/01/2024 Examination: BI MAMMOGRAM SCREENING [...] Mammogram ELECTRONICALLY SIGNED BY: Sebastien Guajardo M.D. Authorizing ProviderResult TypeResult StatusAmy [facility] BI PROCEDURESFinal Result * Pap Smear (05/13/2024 12:00 AM EST)Specimen (Source)Anatomical Location / LateralityCollection Method / VolumeCollection TimeReceived TimeSwabCervical swab / Unknown Narrative Authorizing ProviderResult TypeResult StatusAmy Gerardo PALAB CYTOLOGY ORDERABLES Final ResultPerforming OrganizationAddressCity/State/ZIP CodePhone Number EXTERNAL LAB * THINPREP PAP AND HPV MRNA E6/E7 W/RFL HPV 16,18/45 (04/06/2023 4:08 PM EDT) Narrative Authorizing ProviderResult TypeResult StatusAmy Gerardo LEWIS BLOOD ORDERABLES Final ResultPerforming OrganizationAddressCity/State/ZIP CodePhone Number EXTERNAL LAB from Last 3 Months or Most Recently Relevant to Health Maintenance Insurance Care Teams Team MemberRelationshipSpecialtyStart DateEnd Date Patience Jimenez MD [address] [facility] [place] [phone] PCP - GeneralFamily Medicine03/16/23 González Mcallister DO [address] [place] [address] PCP - Medical [place] [employer]07/10/1711
--- OUTSIDE RECORDS SUMMARY | 2025-05-17 08:13 | XMS_ITS | CCD ---
Author Organization [facility] Care Team Providers Care Air Conditioning Equipment Mechanic Name Role Phone DR AGUSTIN MORTENSEN Primary Care Unavailable LAKSHMIPATHY ., NARENDRANATH Admitting Mariella vailable LAKSHMIPATHY ., NARENDRANATH Consulting Mariella vailable LAKSHMISHMIPATHY ., NARWILLAMATH Attending Mariella vailable LORRI BERRY Admitting Unavailable LORRI BERRY Attending Unavailable DR CHRISTINA ROBLERO Consulting Unavailable DR AGUSTIN MORTENSEN Primary Care Unavailable LORRI BERRY Consulting Unavailable Unavailable Primary Care Provider UnavailMD Agustin Ramirez Primary Care Provider MD Jose Guadalupe Costa Attending Provider Unavailable DAGMAR Feng Attending Provider [phone] Unavailable Primary Care Provider Unavailfide reeves NO FAMILY, PHYSICIAN Primary Care Provider Unava ilable DAGMAR Feng Primary Care Provider MD Jose Guadalupe Costa Attending Provider Unavailable DO Lady Vásquez Attending Provider Agustin Mortensen MD Primary Care Provider [phone] Devin Kyle Referring Unavailable Devin Kyle Attending Unavailable MARSHA LANDA Attending Unavailable MARSHA LANDA Attending Unavailable Lashner, Kyle Referring Unavailable Lashner, Kyle Referring Unavailable ALINAHOTHHELDER MOHAMAD Attending Unavailable ALINAHOTHHELDER MOHAMAD Referring Unavailable ALINAHOTHANI MOHAMAD Attending Unavailable ALINAHOTHHELDER MOHAMAD Admitting Unavailable SREE DOUGLASSD Attending Unavailable Blanka Aguirre DO Unavailable [phone] Martín Torres DO Attending Provider Martín Torres Attending Unavailable Martín Torres Admitting Unavailable Rohrbacher, Genevieve Admitting Unavailable NO FAMILY, PHYSICIAN Primary Care Unavailable Rohrbacher, Genevieve Attending Unavailable Rohrbacher, Genevieve Primary Care Unavailable Lakshmipathy, Narendranath Attending Unava ilable Lakshmipathy, Narendranath Admitting Unava ilable Rohrbacher, Genevieve Primary Care Unavailable Ly, Lady L Attending Unavailable Ly, Lady L Admitting Unavailable Martín Torres DO Attending Provider Barbara AGUIRRE, Agustin Primary Care Provider Agustin Mortensen MD Primary Care Provider Angelrbacheradha TAPE MAKING MACHINE OPERATOR, Genevieve Primary Care Provider Elisha TAPE MAKING MACHINE OPERATORTeressa Quevedo Attending Provider [phone] Jung TAPE MAKING MACHINE OPERATORGenevieve Quevedo Attending Provider MARTÍN TORRES Attending Unavailable LINDA CARRILLO Referring Unavailable SWETA ALANIZ Attending Unavailable LANDA, MARSHA Referring Unavailable GUNDLACH, BLANKA D Attending Unavailable LANDA, MARSHA Referring Unavailable MARTÍN TORRES Attending Unavailable TERESSA TELLO Attending Unavailable TERESSA TELLO Attending Unavailable BETHANY CHANG Attending Unavailable GUNDLACH, BLANKA Karie Attending Unavailable GUNDLACH, BLANKA D Referring Unavailable [...] Attending Unavailable GUNDLACH, BLANKA D Referring Unavailable ANNEMARIEACH, BLANKA D Attending Unavailable ANNEMARIEACH, BLANKA D Referring Unavailable MARTÍN TORRES Attending Unavailable VALERIA, BLANKA D Attending Unavailable GUNDLACH, BLANKA D Referring Unavailable GUNDLACH, BLANKA D Attending Unavailable DILIADLACH, BLANKA D Referring Unavailable VALERIA, BLANKA D Attending Unavailable MARSHA LANDA Referring Unavailable VALERIA, BLANKA Tiwari Attending Unavailable MARSHA LANDA Referring Unavailable SWETA ALANIZ Attending Unavailable MARSHA LANDA Referring Unavailable Medications Current Medications MedicationDrug Class(es)DatesSig (Normalized)Sig (Original)aspirin 81 mg delayed release oral tablet (20 sources)Platelet Aggregation Inhibitor, Nonsteroidal Anti-inflammatory Drug Start: 03-21-2024 End: 09-59-3075kjos 1 tablet by mouth once dailyAspirin (Adult Aspirin Regimen) 81 mg tablet,delayed release (DR/EC) Active 81 MG PO Daily March 20, 2024 11:00pm Complies with drug therapybusPIRone hydrochloride 10 mg oral tablet (20 sources)Start: 09-25-2024 End: 21-90-0538oahs 1 tablet by mouth twice dailyBuspirone 10 mg tablet Active 10 MG PO Twice daily 180 90 November 07, 2024 6:58am Anxiety Anxiety disorder, unspecified Complies with drug therapyStart: 05-01-2024 End: 26-43-1672Gtftgddef 5 mg tablet Discontinued 0 .ROUTE .COMPLEX 180 August 07, 2024 11:07am September 25, 2024 2:53pm Anxiety Anxiety disorder, unspecified TAKE 1 TABLET TWICE DAILYStart: 05-01-2024 End: 42-20-5139Iinacubqf 5 mg tablet Discontinued 0 .ROUTE .COMPLEX 180 May 01, 2024 2:31pm August 07, 2024 12:07pm TAKE 1 TABLET TWICE DAILYStart: 05-01-2024 End: 79-60-6378Omndxuodf 5 mg tablet Discontinued 0 .ROUTE .COMPLEX 180 May 01, 2024 1:31pm August 07, 2024 11:07am TAKE 1 TABLET TWICE DAILYStart: 59-41-7566Wgvymlacs Active 0 .ROUTE .COMPLEX 180 May 01, 2024 2:31pm TAKE 1 TABLET TWICE DAILYStart: 09-14-2023 End: 81-59-7265ewyz 1 tablet by mouth twice dailyBuspirone 5 mg tablet Discontinued 5 MG PO Twice daily 180 90 1 October 12, 2023 7:51am May 01, 2024 1:31pm Anxiety Anxiety disorder, unspecifiedcyclobenzaprine hydrochloride 10 mg oral tablet (3 sources)Muscle RelaxantStart: 03-16-2023 End: 16-18-0849ucfq 1 tablet by mouth three times daily as needed for muscle spasmscyclobenzaprine (Flexeril) 10 MG tablet Indications: Strain of lumbar region, initial encounter Take 1 tablet (10 mg) by mouth 3 (three) times a day as needed for muscle spasms for up to 10 days. 30 tablet 03/16/2023 03/05/2024 Discontinued (Other)enteric contrast (will be provided with radiology test) (2 sources)Start: 04-10-2024 End: 37-06-0855kmzrvjr contrast (will be provided with radiology test) For CT ENTEROGRAPHY W IVCON order Administer, As Directed One Time Only, via Oral, Rectal, both Oral and Rectal, Enteric Tube, Stoma or Indwelling Catheter, Enteric Contrast as designated per enteric contrast guidelines. 1 Each 04/10/2024 04/11/2024 Dirjqk263 hr estradiol 0.00228 mg/hr transdermal system (20 sources)EstrogenStart: 02-20-2025 End: 85-17-0182jtjoijwpf (Climara) 0.025 MG/24HR Indications: Postmenopausal HRT (hormone replacement therapy) Place 1 patch over 7 days on the skin 1 (one) time per week 12 patch 3 02/20/2025 02/20/2026 ActiveStart: 86-41-1651xinazdhnu (Estrace) 0.1 MG/GM vaginal cream Indications: Postmenopausal HRT (hormone replacement therapy) 2g vaginal daily for 2 weeks, then 2 times weekly following initial 2 weeks 42.5 g 02/20/2025tiveStart: 04-19-2023 End: 10-84-2317yrmunphhq (Estrace) 0.5 MG tablet Indications: Vaginal dryness TAKE 1 TABLET DAILY 90 tablet 3 11/05/2024 02/20/2025 Discontinuedestrogens, conjugated (long-term) 0.625 mg/ml vaginal cream (3 sources)EstrogenStart: 04-20-2023 End: 99-73-3446Dskckasta Conjugated (Premarin) 0.625 MG/GM cream Indications: Dyspareunia in female 30 g 04/20/2023 03/05/2024 Discontinued (Other)iv contrast (will be provided with radiology test) (2 sources)Start: 04-10-2024 End: 29-64-3968bp contrast (will be provided with radiology test) CT Enterography W Inject, intravenously, once for 1 dose.No IV access, insert saline lock prior to the beginning of sedation, infusion, injection ofimaging exam. Discontinue saline lock post exam. If Pt. has a central line or IVAD, may access for administration according to line specific nursing protocol. Once exam is complete flush line and de-access according to line specific nursing protocol in the CT contrast administration guidelines link. 1 Each 04/10/2024 04/11/2024 ActiveLORazepam 0.5 mg oral tablet (20 sources)BenzodiazepineStart: 04-03-2025 End: 39-07-0890frly 1 tablet by mouth every six hours for anxietyLORazepam (Ativan) 0.5 MG tablet Indications: Anxiety, generalized Take 1 tablet (0.5 mg) by mouth every 6 (six) hours if needed for anxiety for up to 10 days 15 tablet 04/03/2025 ActiveStart: 01-30-2023 End: 48-23-5419fakh 1 tablet by mouth once daily as needed for anxietyLorazepam (Ativan) 0.5 mg tablet Active 0.5 MG PO Daily as needed for anxiety 15 15 0 September 14, 2023 12:00am Anxiety Anxiety disorder, unspecified Complies with drug therapy End: 34-68-7673opcp 1 tablet by mouth every six hours as neededLORazepam (Ativan) 0.5 MG tablet Take 0.5 mg by mouth every 6 (six) hours if needed 02/20/2025 DiscontinuedComment on above:Take 0.5 mg by mouth.24 hr metoprolol succinate 25 mg extended release oral tablet (5 sources)beta-Adrenergic BlockerStart: 03-18-2024 End: 28-85-8692enwf 1 tablet by mouth every twenty-four hours in the morning metoprolol succinate XL (Toprol-XL) 25 MG 24 hr tablet Take 25 mg by mouth in the morning. 03/18/2024 05/13/2024 Discontinued (Other)predniSONE 50 mg oral tablet (1 source)Start: 03-16-2023 End: 51-76-0121ftgjwvVGFH (DELTASONE) 50 mg Take 50 mg by mouth. 0 03/16/2023 03/21/2023 ActiveComment on above:Take 50 mg by mouth.progesterone 100 mg oral capsule (7 sources)ProgesteroneStart: 02-20-2025 End: 24-07-6094lhbz 1 capsule by mouth once dailyprogesterone (Prometrium) 100 MG capsule Indications: Postmenopausal HRT (hormone replacement therapy) Take 1 capsule (100 mg) by mouth Daily 30 capsule 11 02/20/2025 02/20/2026 Active rosuvastatin calcium 20 mg oral tablet (5 sources)HMG-CoA Reductase InhibitorStart: 03-18-2024 End: 58-79-3648okhh 1 tablet by mouth in the morningrosuvastatin (Crestor) 20 MG tablet Take 20 mg by mouth in the morning. 03/18/2024 05/13/2024 Discontinued (Other)tretinoin 0.5 mg/ml topical cream (20 sources)RetinoidStart: 35-66-2123hxvmsfgsh (Retin-A) 0.05 % cream Indications: Rhytides Apply 0.7 g to the face, once daily at evening/night time, 30 day supply 20 g 05/15/2025 ActiveStart: 10-26-2023 End: 20-33-5181Knvegomux (Altreno) 0.05 % lotion Indications: Rhytides Apply thin layer to face at bedtime 45 g 02/20/2025 Discontinued Completed/Discontinued Medications MedicationDrug Class(es)DatesSig (Normalized)Sig (Original)baclofen 5 mg oral tablet (20 sources)gamma-Aminobutyric Acid-ergic AgonistStart: 05-01-2024 End: 66-58-9879zqks 1 tablet by mouth three times dailyBaclofen 5 mg tablet Discontinued 5 MG PO Three times daily April 30, 2024 11:00pm September 25, 2 025 8:38amStart: 09-14-2023 End: 43-44-9120xnqe 1 tablet by mouth once dailyBaclofen 10 mg tablet Discontinued 10 MG PO Daily September 14, 2023 12:00am October 12, 2023 7:30amStart: 03-07-2023 End: 69-60-2823lqbi 0.5 tablet by mouth three times dailybaclofen 10 mg tablet TAKE 1/2 TABLET BY MOUTH 3 TIMES A DAY 03/07/2023 ActiveComment on above:TAKE 1/2 TABLET BY MOUTH 3 TIMES A DAYfluconazole 150 mg oral tablet (7 sources)Azole AntifungalStart: 04-05-2024 End: 69-11-2975Uajlshzjies 150 mg tablet Discontinued 150 MG PO Daily 5 5 0 April 04, 2024 11:00pm May 01, 2024 8:03am Thrush Candidal stomatitis Take 1st dose at onset of symptoms then repeat in 3 daysif continued symptomspantoprazole 40 mg delayed release oral tablet (20 sources)Proton Pump InhibitorStart: 03-22-2024 End: 13-67-0410alls 1 tablet by mouth once dailyPantoprazole 40 mg tablet,delayed release (DR/EC) Discontinued 40 MG PO Daily 30 30 3 September 24, 2024 11:00pm September 25, 2024 2:34pmphenazopyridine hydrochloride 200 mg oral tablet (10 sources)Start: 04-02-2024 End: 63-80-5347ixio 1 tablet by mouth three times dailyPhenazopyridine (Pyridium) 200 mg tablet Discontinued 200 MG PO Three times daily 6 0 April 01, 2024 11:00pm May 01, 2024 8:04am Urinary tract infection Urinary tract infection, site not specifiedsulfamethoxazole 800 mg / trimethoprim 160 mg oral tablet (10 sources)Dihydrofolate Reductase Inhibitor Antibacterial, Sulfonamide AntimicrobialStart: 04-02-2024 End: 14-20-0408olxh 1 tablet by mouth twice dailySulfamethoxazole-Trimethoprim (Bactrim Ds) 800-160 mg tablet Discontinued 1 TAB PO Twice daily 14 70 April 01, 2024 11:00pm May 01, 2024 8:04am Urinary tract infection Urinary tract infection, site not specified Problems Active Problems Problem ClassificationProblemDateDocumented DateEpisodic/ChronicAbdominal pain (20 sources)Abdominal pain; Translations: [Unspecified abdominal pain]Onset: 586187-11-4003YsjvmzudWvassff disorders (20 sources)Anxiety; Translations: [Anxiety disorder, unspecified]Onset: 085137-30-0609YcrxgtfNjsjxsr and circulatory congenital anomalies (16 sources)Myocardial bridge of coronary artery; 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]52-42-7463KwmglwfBtnnbgv dysrhythmias (20 sources)Palpitations; Translations: [Palpitations]97-88-0728Mzfpjtay Complications of surgical procedures or medical care (2 sources)Postsurgical menopause; 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]12-85-4580PucceweYffmdegats associated with dizziness or vertigo (20 sources)Dizziness; Translations: [Dizziness and giddiness]81-44-8812Gytylqod Esophageal disorders (2 sources)Gastroesophageal reflux disease; Translations: [Gastro-esophageal reflux disease without esophagitis]37-88-6438XjgembtNnjouweyoi disorders (4 sources)Postmenopausal state; Translations: [Hormone replacement therapy] 05-46-0156VxojezfxJmhfbdx (7 sources)Candidiasis of mouth; Translations: [Candidal stomatitis]04-05-2024 EpisodicNonspecific chest pain (20 sources)Tight chest; Translations: [Other chest pain]Onset: 03-04-2024 81-46-1266PgsvakxnIhdgw aftercare (2 sources)Surgical follow-up; Translations: [Encounter for follow-up examination after completed treatment for conditions other than malignant neoplasm]37-72-1315LyuwkqbgXyumy and unspecified benign neoplasm (1 source)Melanocytic nevus of lower limb; Translations: [Melanocytic nevi of unspecified lower limb, including hip]38-34-3476VgybupluJxlsr and unspecified benign neoplasm (1 source)Melanocytic nevus of trunk; Translations: [Melanocytic nevi of trunk] 98-68-4227OeeqgckqHvghd connective tissue disease (3 sources)Pain in right leg; Translations: [PAIN IN RIGHT LEG]Onset: 10-20-2022 EpisodicOther connective tissue disease (1 source)Pain in right lower limb; Translations: [Pain in right leg]06-21-2023 EpisodicOther endocrine disorders (2 sources)Disorder of endocrine system; Translations: [Endocrine disorder, unspecified]40-75-3470YtnhuxtnBuonk gastrointestinal disorders (12 sources)Abdominal bloating; Translations: [Abdominal distension (gaseous)] 36-30-0639RddlcntzMicgi gastrointestinal disorders (8 sources)Abdominal distension (gaseous); Translations: [Flatulence, eructation, and gas pain]90-45-9038UcuvkanyCmure inflammatory condition of skin (1 source)Rosacea; Translations: [Other rosacea]07-87-4847BwhvsmtLvnap nervous system disorders (1 source)Right-sided piriformis syndrome; Translations: [Lesion of sciatic nerve, right lower limb]92-73-6180UnbqjvsSabhe nervous system disorders (1 source)Paresthesia of lower extremity; Translations: [Anesthesia of skin] 81-18-7547AzmzzfqyXcmqo non-traumatic joint disorders (4 sources)Pain in right ankle and joints of right foot; Translations: [PAIN IN RIGHT ANKLE]Onset: 05-11-3723CdtejvccFahrq screening for suspected conditions (not mental disorders or infectious disease) (18 sources)Encounter for screening for lipoid disorders; Translations: [Screening for lipoid disorders]Onset: 583950-80-3590BhoshbvhOlmad skin disorders (1 source)Lentiginosis; Translations: [Other melanin hyperpigmentation] 85-31-0725FijprxzpLtmfj skin disorders (1 source)Seborrheic keratosis; Translations: [Other seborrheic keratosis] 17-93-7391KgwkoijcFgtfv skin disorders (1 source)Idiopathic guttate hypomelanosis; Translations: [Other specified disorders of pigmentation]72-09-5569UeqktwznHcuwu skin disorders (1 source)Wrinkled skin; Translations: [Other specified disorders of the skin and subcutaneous tissue]48-00-0560PlhklythDetbx skin disorders (2 sources)Inflamed seborrheic keratosis; Translations: [Inflamed seborrheic keratosis]91-16-8602IudzzmjdUtpkemmv codes; unclassified (20 sources)Patient encounter status; Translations: [Encounter for cosmetic surgery]Onset: 595735-20-9885OnhieldrOviagdjw codes; unclassified (13 sources)Family history of cardiovascular disease in first degree male relative less than 55 years of age; Translations: [Family history of ischemic heart disease and other diseases of the circulatory system]72-20-0610Cwtnkivh Residual codes; unclassified (9 sources)Family history of ischemic heart disease and other diseases of the circulatory system; Translations: [Family history of other cardiovascular diseases]94-52-1455MalbekhlKgvjgsuicvu; intervertebral disc disorders; other back problems (20 sources)Thoracic spondylosis; Translations: [Spondylosis without myelopathy or radiculopathy, thoracic region]37-18-5832MzgtojbViqgprj tract infections (17 sources)Urinary tract infectious disease; Translations: [Urinary tract infection, site not specified]Onset: 115021-87-3602Ksmeokrg Past or Other Problems Problem ClassificationProblemDateDocumented DateEpisodic/Chronic Administrative/social admission (2 sources)Follow-up status; Translations: [Person consulting for explanation of examination or test findings]10-74-2001HqmsjmnuNdcii female genital disorders (3 sources)Pain in female pelvis; Translations: [Pelvic pain in female]Onset: 390132-31-6089UkozvppjRtgshko cyst (20 sources)Complex ovarian cyst; Translations: [Other ovarian cyst, unspecified side]Onset: 172664-23-1760RtyrgcuwVvbweqbjvgr; intervertebral disc disorders; other back problems (20 sources)Radiculopathy, lumbar region; Translations: [Pain in thoracic spine] Onset: 532067-21-9955Qhyiymco Results Test NameValueInterpretationReference RangeFacilityCryotherapy, skin lesionon 35-71-5301RRRI HealthcareNOHawthorn Children's Psychiatric HospitalOH TESTOSTERONE FREE/TOT EQUILIBon 59-15-9587JZYU TESTOSTERONE(DIRECT)1.1 pg/mL0.0 - 4.2 pg/mLNSaint Mary's Health Center Comment on above:Performed at: [facility] [id number] Plastic Press Operator: Kiko Mendoza PhD, Phone: [phone] Performed at: [address] [id number] Plastic Press Operator: Katharina Wylie MD, Phone: [phone] Testosterone [Mass/Vol]27 ng/dL4 - 50 ng/dLALTA VIEW HOSPITAL HealthcareCLINISYNCNOMS HealthcareFree testosterone measurement by LC-MS/MSOrdered By: Teressa Tello on 12-01-2475Xlqkmntdcwrd Free [Mass/Vol]1.1 pg/mL0.0-4.2FGeorgetown Behavioral HospitalComment on above:Performed at: - [facility] [id number] Director: Kiko Mendoza PhD, Phone: [phone] at: [facility] [id number] Director: Katharina Wylie MD, Phone: [phone] Panel Information Ordered By: Teressa Tello on 60-19-8022Jvfyogvodtlp Level27 ng/dL4-50[facility] CenterALL CBC WITH AUTO DIFFon 18-13-7758SKHUONPUS ABSOLUTE HCUC6XKGW HealthcareBasophils/100 WBC (Bld)0.8 %0.2 - 2.0 %NOM[facility] Healthcare Eosinophils/100 WBC (Bld)2.1 %0.9 - 7.0 %NOM HealthcareErythrocyte distribution width (RBC) [Ratio]12.2 %11.0 - 15.0 %NOMS HealthcareHematocrit (Bld) [Volume fraction]39.4 %36.0 - 48.0 %[facility] HealthcareHemoglobin (Bld) [Mass/Vol]13.3 g/dL 12.0 - 16.0 g/dLNOBarnes-Jewish HospitalIMMATURE GRANULOCYTES ABS [id number] Healthcare Immature granulocytes/100 WBC (Bld)0 %0.0 - 0.5 %NOMS HealthcareLYMPHOCYTES ABSOLUTE AUTO1.6NOMS HealthcareLymphocytes/100 WBC (Bld)33.4 %20.5 - 60.0 %[facility] for ChildrenMCH (RBC) [Entitic mass]31.2 pg26.7 - 34.0 pgNOMS [facility]lower HospitalHC (RBC) [Mass/Vol]33.8 g/dL29.9 - 35.2 g/dLNOMS HealthcareMCV (RBC) [Entitic vol]92.5 fL 81.0 - 99.0 fLShriners Hospitals for ChildrenMONOCYTES ABSOLUTE AUTO0.4NOBarnes-Jewish Hospital Monocytes/100 WBC (Bld)8.7 %1.7 - 12.0 %[facility] HospitalNEUTROPHILS ABSOLUTE AUTO 2.7NOMS HealthcareNeutrophils/100 WBC (Bld)55 %43.0 - 75.0 %[facility] Platelet mean volume (Bld) [Entitic vol]9.7 fL9.5 - 13.5 fLShriners Hospitals for ChildrenTBH EO #0.1NOMS HealthcareTBH [id number]-Jewish HospitalTB RBC4.26NOBarnes-Jewish HospitalTB WBC4.8 [facility] for ChildrenCLINISYNCNSaint Mary's Health CenterBasophils Auto (Bld) [#/Vol]on 08-30-2024 Basophils (Bld) [#/Vol]Automated basophil count0.0-0.1FGeorgetown Behavioral HospitalBasophils/100 WBC Auto (Bld)on 04-90-7467Xiimbatlb/100 WBC (Bld)Automated basophil %0.2-2.0[facility] CenterEosinophils/100 WBC Auto (Bld)on 10-24-5847Yykmffwdgos/100 WBC (Bld)Automated eosinophil %0.9-7.0 [facility] CenterErythrocyte distribution width Auto (RBC) [Ratio]on 72-72-0682Ptmwoafhukw distribution width (RBC) [Ratio]Erythrocyte distribution width [Ratio] by Automated count11.0-15.0[facility] CenterHematocrit Auto (Bld) [Volume fraction]on 88-63-9005Eeeobbstxj (Bld) [Volume fraction]Hematocrit [Volume Fraction] of Blood by Automated count 36.0-48.0[facility] Medical CenterHemoglobin [Mass/volume] in Bloodon 33-17-4412Ybudmpsxvo (Bld) [Mass/Vol]Hemoglobin [Mass/volume] in Blood12.0-16.0 [facility] Medical CenterLon 08-30-2024L Specimen: [id number] Received: 08/30/24 Status: YUDYJose Juan Hobbs Num: [id number] Spec Type: Surgical Subm Dr: Martín Torres Tissues: A Fallopian Tube - Sterilization (BILATERAL FALLOPIAN TUBES) B Ovary - Cyst, Non-Neoplastic (LEFT OVARY) Procedures: HE/6, Gross/Micro L4, Gross/Micro L2 Age/ Patient Sex Location Account Attending Physician Yuri Gallagher 53/F LABELL [id number] Martín Torres SPEC NUM: [id number] RECD: 08/30/24 STATUS: BRANDY HOBBS NUM: [id number] DEANDRE: 08/30/24-1001 SUBM : Martín Torres ENTERED: 08/30/24-[address] [facility] [address]: Nguyễn,Lab SPEC TYPE: Surgical DEPT: AKILAH DE LA CRUZ ENTERED BY: [id number] RECV BY: [id number] ORDERED: HE/6, Gross/Micro L4, Gross/Micro L2 ORDERED: [...] A1 Entirety of trisected fimbriated end and retail service representative cross-sections from shorter tube A2 Entirety of trisected fimbriated end and retail service representative cross-sections from longer tube (2, ss, [id number] A)J Part B is received in formalin labeled with the patients name, date of , and left ovary is a 4.1 g, collapsed cystic ovary, 3.5 x 2.5 x 1.5 cm. The capsular surface is calabrese- pink to fong-purple, ranging from smooth and glistening to bosselated. Serial sections Specimen: [id number] Received: 08/30/24 Status: BRANDY Hobbs Num: [id number] Spec Type: Surgical Subm Dr: Martín Torres Tissues: A Fallopian Tube - Sterilization (BILATERAL FALLOPIAN TUBES) B Ovary - Cyst, Non-Neoplastic (LEFT OVARY) Procedures: HE/6, Gross/Micro L4, Gross/Micro L2 Patient: Yuri Gallagher [id number] (Continued) Specimen: [id number] Received: 08/30/24 (Continued) Gross Description (Continued) Signed (signature on file) Rox Jorge MD 09/02/24 1640 Specimen: [id number] Received: 08/30/24 Status: BRANDY Hobbs Num: [id number] Spec Type: Surgical Subm Dr: Martín Torres Tissues: A Fallopian Tube - Sterilization (BILATERAL FALLOPIAN TUBES) B Ovary - Cyst, Non-Neoplastic (LEFT OVARY) Procedures: HE/6, Gross/Micro L4, Gross/Micro L2 Patient: Yuri Gallagher [id number] (Continued) Specimen: [id number] Received: 08/30/24 (Continued) Gross Description (Continued) reveal a unilocular, smooth lined cystic cavity, 3 cm in greatest dimension. The remaining ovarian parenchyma is calabrese-pink to yellow with focal simple cysts. No papillations or excrescences are identified. The specimen is entirely submitted in B1?B4. (4, ns, [id number] B) CPT Codes 09261 [id number] Specimen: [id number] Received: 08/30/24 Status: BRANDY Hobbs Num: [id number] Spec Type: Surgical Subm Dr: Martín Torres Tissues: A Fallopian Tube - Sterilization (BILATERAL FALLOPIAN TUBES) B Ovary - Cyst, Non-Neoplastic (LEFT OVARY) Procedures: HE/6, Gross/Micro L4, Gross/Micro L2 Patient: Yuri Gallagher [id number] (Continued) Signed (signature on file) Rox Jorge MD 09/02/[address] [place] [address] Physician GroupLaboratory - Hematology and Cell countson 22-16-1854Vremxtri granulocytes/100 WBC (Bld)0.0 %0.0-0.5FGeorgetown Behavioral HospitalLeukocytes [#/volume] corrected for nucleated erythrocytes in Blood by Automated counon 36-55-6921APA corrected for nucl RBC Auto (Bld) [#/Vol]Leukocytes [#/volume] corrected for nucleated erythrocytes in Blood by Automated coun4.0-11.0[facility] Medical CenterLymphocytes Auto (Bld) [#/Vol]on 76-38-0229Qbykukddekf (Bld) [#/Vol]Lymphocytes [#/volume] in Blood by Automated count1.2-3.8[facility] Medical CenterLymphocytes/100 WBC Auto (Bld)on 50-97-0741Rrtbnkvjmbb/100 WBC (Bld)Lymphocytes/100 leukocytes in Blood by Automated count20.5-60.0[facility] Auto (RBC) [Entitic mass]on 89-91-5485FKB (RBC) [Entitic mass]MCH [Entitic mass] by Automated count26.7-34.0[facility] Auto (RBC) [Mass/Vol]on 18-26-6573ERAR (RBC) [Mass/Vol]MCHC [Mass/volume] by Automated count29.9-35.2FGeorgetown Behavioral HospitalMCV Auto (RBC) [Entitic vol]on 78-98-3461MQP (RBC) [Entitic vol]MCV [Entitic volume] by Automated count 81.0-99.0[facility] CenterMonocytes Auto (Bld) [#/Vol]on 02-48-0789Unccewrbx (Bld) [#/Vol]Automated blood monocyte count0.3-0.8[facility] CenterMonocytes/100 WBC Auto (Bld)on 63-31-2371Mxgrfjroc/100 WBC (Bld)Automated monocyte %1.7-12.0[facility] Neutrophils Auto (Bld) [#/Vol]on 25-79-0554Znaipoyszhw (Bld) [#/Vol]Neutrophils [#/volume] in Blood by Automated count1.4-6.5FGeorgetown Behavioral Hospital Neutrophils/100 WBC Auto (Bld)on 14-96-9528Grqdeimlfgl/100 WBC (Bld)Automated neutrophil %43.0-75.0[facility] CenterNo Panel Informationon 66-44-5358Vevdojrezvw # (Auto)0.1 10 3/uL0.0-0.7FGeorgetown Behavioral HospitalImmature Granulocyte # (Auto)0.00 10 3/uL0.00-0.03[facility] Medical CenterPlatelet mean volume Auto (Bld) [Entitic vol]on 05-06-6445Pbnnqkek mean volume (Bld) [Entitic vol]Platelet mean volume [Entitic volume] in Blood by Automated count9.5-13.5FGeorgetown Behavioral HospitalPlatelets Auto (Bld) [#/Vol]on 35-35-2320Hgefbfaba (Bld) [#/Vol]Platelets [#/volume] in Blood by Automated tolfu002-093OkhdxvlmtDiley Ridge Medical CenterRBC Auto (Bld) [#/Vol]on 54-78-2281OOF (Bld) [#/Vol]Erythrocytes [#/volume] in Blood by Automated count 4.20-5.40[facility] CenterALL CBC WITH AUTO DIFFon 08-15-2024 BASOPHILS ABSOLUTE HMPB6VKQV HealthcareBasophils/100 WBC (Bld)0.6 %0.2 - 2.0 % NOMLakeland Regional HospitalEosinophils/100 WBC (Bld)1 %0.9 - 7.0 %[facility] for ChildrenErythrocyte distribution width (RBC) [Ratio]12.1 %11.0 - 15.0 %[facility] for ChildrenHematocrit (Bld) [Volume fraction]39.4 %36.0 - 48.0 %[facility] ChildrenHemoglobin (Bld) [Mass/Vol]13.2 g/dL12.0 - 16.0 g/dLShriners Hospitals for ChildrenIMMATURE GRANULOCYTES ABS AUTO 0.01NOMS HealthcareImmature granulocytes/100 WBC (Bld)0.1 %0.0 - 0.5 %[facility] for ChildrenLYMPHOCYTES ABSOLUTE AUTO1.8NOMS HealthcareLymphocytes/100 WBC (Bld) 25.5 %20.5 - 60.0 %[facility] JosephH (RBC) [Entitic mass]31.1 pg26.7 - 34.0 pg [facility] for ChildrenMCHC (RBC) [Mass/Vol]33.5 g/dL29.9 - 35.2 g/dLShriners Hospitals for ChildrenMCV (RBC) [Entitic vol]92.7 fL81.0 - 99.0 fLShriners Hospitals for ChildrenMONOCYTES ABSOLUTE AUTO 0.5NOMS HealthcareMonocytes/100 WBC (Bld)6.8 %1.7 - 12.0 %[facility] NEUTROPHILS ABSOLUTE AUTO4.7NOBarnes-Jewish HospitalNeutrophils/100 WBC (Bld)66 %43.0 - 75.0 %[facility] ChildrenPlatelet mean volume (Bld) [Entitic vol]10 fL9.5 - 13.5 fL [facility] for ChildrenTBH EO #0.1NOMS HealthcareTB ULN305SZBU Barnesville HospitalTB RBC4.25 [facility] WBC7.1NOMS HealthcareCLINISYNCNCLEVELAND AREA HOSPITAL – [facility] HealthcareActivated partial thromboplastin time (aPTT) in platelet poor plasma by coagulation aon 17-92-7801bBIZ Coag (PPP) [Time]Activated partial thromboplastin time (aPTT) in platelet poor plasma by coagulation a22.3-36.2FGeorgetown Behavioral Hospital Basophils Auto (Bld) [#/Vol]on 48-27-3502Qdcxygzvk (Bld) [#/Vol]Automated basophil count0.0-0.1FGeorgetown Behavioral HospitalBasophils/100 WBC Auto (Bld)on 19-63-4856Vmzhsnbna/100 WBC (Bld)Automated basophil %0.2-2.0[facility] Medical CenterECG 12-LEADon 88-74-8026QocRog[place] [address] Electrocardiograph Report Signed Patient: YURI GALLAGHER MR#: [id number] : 1970 Acct:[id number] Age/Sex: 53 / F ADM Date: 08/15/24 Loc: [facility] Attending Dr: Martín Torres D.O. Ordering Physician: Martín Torres D.O. Date of Service: 08/15/24 Procedure(s): ECG 12 lead Accession Number(s): [id number] cc: [facility] Test Date: 2024-08-15 Pat Name: YURI GALLAGHER Department: Room: - Gender: Female Cable Tower Operator: : 1970 Requested By: MARTÍN TORRES Order Number: [id number] Reading MD: ASNDEEP OBRIEN Measurements Intervals [place] Rate: 59 P: 53 MI: 155 QRS: 22 QRSD: 99 T: 31 QT: 419 QTc: 418 Interpretive Statements SINUS BRADYCARDIA POSSIBLE RIGHT VENTRICULAR CONDUCTION DELAY [RSR (QR) IN V1/V2] NONSPECIFIC T-WAVE ABNORMALITY No previous ECG available for comparison Electronically Signed On 08-15-2024 20:18:33 EST by SANDEEP OBRIEN Dictated By: Sandeep Obrien D.O. Signed By: 08/15/242018 DD/ 41 TD/TT: Lunch Truck Operator:TBHRadiology, Radiologist, - 08/15/2024 [place] [address] Electrocardiograph Report Signed Patient: YURI GALLAGHER MR#: [id number] : 1970 Acct:[id number] Age/Sex: 53 / F ADM Date: 08/15/24 Loc: PST Attending Dr: Martín Torres D.O. Ordering Physician: Martín Torres D.O. Date of Service: 08/15/24 Procedure(s): ECG 12 lead Accession Number(s): [id number] cc: [facility] Test Date: 2024-08-15 Pat Name: YURI GALLAGHER Department: Room: - Gender: Female Cable Tower Operator: : 1970 Requested By: MARTÍN TORRES Order Number: [id number] Reading MD: SANDEEP OBRIEN Measurements Intervals [place] Rate: 59 P: 53 MI: 155 QRS: 22 QRSD: 99 T: 31 QT: 419 QTc: 418 Interpretive Statements SINUS BRADYCARDIA POSSIBLE RIGHT VENTRICULAR CONDUCTION DELAY [RSR (QR) IN V1/V2] NONSPECIFIC T-WAVE ABNORMALITY No previous ECG available for comparison Electronically Signed On 08-15-2024 20:18:33 EST by SANDEEP OBRIEN Dictated By: Sandeep Obrien D.O. Signed By: 08/15/242018 DD/ 1442 TD/TT: Lunch Truck Operator: REYES HealthcareRadiology Study observation (narrative)[facility] HealthcareECG 12-LEAD Ordered By: Radiologist Radiology on 41-43-3445PDKI Healthcare Work Phone: Eosinophils/100 WBC Auto (Bld)on 08-15-2024 Eosinophils/100 WBC (Bld)Automated eosinophil %0.9-7.0[facility] CenterErythrocyte distribution width Auto (RBC) [Ratio]on 60-55-1066Skogprcjpts distribution width (RBC) [Ratio]Erythrocyte distribution width [Ratio] by Automated count11.0-15.0[facility] CenterEstimated glomerular filtration rate (GFR) non- Americanon 59-76-0474JTU/1.73 sq M.predicted among non-blacks MDRD (S/P/Bld) [Vol rate/Area]Estimated glomerular filtration rate (GFR) non->=60 mL/min/1.73m 2FGeorgetown Behavioral HospitalHematocrit Auto (Bld) [Volume fraction]on 13-24-4944Cjuyrrnlbx (Bld) [Volume fraction]Hematocrit [Volume Fraction] of Blood by Automated count 36.0-48.0[facility] CenterHemoglobin [Mass/volume] in Bloodon 80-26-5753Mbzelkahwv (Bld) [Mass/Vol]Hemoglobin [Mass/volume] in Blood12.0-16.0 [facility] CenterINR in Platelet poor plasma by Coagulation assayon 78-47-8211SHU Coag (PPP) [Relative time]INR in Platelet poor plasma by Coagulation assayDiley Ridge Medical CenterComment on above:DESIRED INR:2.0-3.0 CONDITIONS NOT LISTED BELOW2.5-3.5 FOR PROSTHETIC HEART VALVE REPLACEMENT2.5-3.5 RECURRENT THROMBOSISLaboratory - Chemistry and Chemistry - challengeon 03-74-0293Eikxgei [Mass/Vol]8.8 mg/dL8.5-10.1FGeorgetown Behavioral HospitalChloride [Moles/Vol]102 mmol/I59-721JqpkaokvdDiley Ridge Medical CenterCO2 [Moles/Vol]32.8 mmol/LHigh21.0-32.0[facility] Creatinine [Mass/Vol]0.83 mg/dL0.55-1.02[facility] GFR/1.73 sq M.predicted MDRD (S/P/Bld) [Vol rate/Area]mL/min/{1.73_m2}>=60 mL/min/1.73m 2FGeorgetown Behavioral HospitalGlucose [Mass/Vol]91 mg/vR73-731 [facility] CenterPotassium [Moles/Vol]4.1 mmol/L3.5-5.1FUniversity Hospitals Geauga Medical Centerodium [Moles/Vol]142 mmol/I996-276AvsejudflDiley Ridge Medical CenterUrea nitrogen [Mass/Vol]15.0 mg/dL7.0-18.0[facility] CenterUrea nitrogen/Creatinine [Mass ratio]18.1 mg/mgDiley Ridge Medical CenterLaboratory - Hematology and Cell countson 70-37-0897Nucgyhsr granulocytes/100 WBC (Bld)0.1 %0.0-0.5FGeorgetown Behavioral Hospital Leukocytes [#/volume] corrected for nucleated erythrocytes in Blood by Automated counon 02-06-1565URK corrected for nucl RBC Auto (Bld) [#/Vol]Leukocytes [#/volume] corrected for nucleated erythrocytes in Blood by Automated coun 4.0-11.0[facility] CenterLymphocytes Auto (Bld) [#/Vol]on 09-97-1799Uudhinrdgxz (Bld) [#/Vol]Lymphocytes [#/volume] in Blood by Automated count1.2-3.8[facility] CenterLymphocytes/100 WBC Auto (Bld)on 59-71-2771Mflxuynqqon/100 WBC (Bld)Lymphocytes/100 leukocytes in Blood by Automated count20.5-60.0[facility] HospitalH Auto (RBC) [Entitic mass]on 32-40-4901YTE (RBC) [Entitic mass]MCH [Entitic mass] by Automated count 26.7-34.0[facility] Medical CenterMCHC Auto (RBC) [Mass/Vol]on 18-68-6052PIFU (RBC) [Mass/Vol]MCHC [Mass/volume] by Automated count29.9-35.2 [facility] CenterMCV Auto (RBC) [Entitic vol]on 15-35-6067MYQ (RBC) [Entitic vol]MCV [Entitic volume] by Automated count81.0-99.0[facility] CenterMonocytes Auto (Bld) [#/Vol]on 97-31-4286Deibolgyo (Bld) [#/Vol]Automated blood monocyte count0.3-0.8[facility] Monocytes/100 WBC Auto (Bld)on 10-89-7317Vuhnadphh/100 WBC (Bld)Automated monocyte %1.7-12.0[facility] Medical CenterNeutrophils Auto (Bld) [#/Vol]on 15-55-3710Wrlgpydjlil (Bld) [#/Vol]Neutrophils [#/volume] in Blood by Automated count1.4-6.5FGeorgetown Behavioral HospitalNeutrophils/100 WBC Auto (Bld)on 47-20-7214Hjxjjwwodcq/100 WBC (Bld)Automated neutrophil %43.0-75.0 [facility] CenterNo Panel Informationon 04-46-2657Vejqwunplxa # (Auto)0.1 10 3/uL0.0-0.7FGeorgetown Behavioral HospitalImmature Granulocyte # (Auto)0.01 10 3/uL0.00-0.03[facility] Medical CenterPlatelet mean volume Auto (Bld) [Entitic vol]on 41-60-6679Jebssvji mean volume (Bld) [Entitic vol] Platelet mean volume [Entitic volume] in Blood by Automated count9.5-13.5 [facility] Medical CenterPlatelets Auto (Bld) [#/Vol]on 08-15-2024 Platelets (Bld) [#/Vol]Platelets [#/volume] in Blood by Automated yppxc449-460 [facility] CenterProthrombin time (PT)on 11-54-0443PG Coag (PPP) [Time]Prothrombin time (PT)9.0-11.6FGeorgetown Behavioral HospitalRBC Auto (Bld) [#/Vol]on 28-74-0935OFS (Bld) [#/Vol]Erythrocytes [#/volume] in Blood by Automated count4.20-5.40Samaritan Hospitalerum or plasma anion gap determinationon 13-94-2885Gjggl gap [Moles/Vol]Serum or plasma anion gap determinationDiley Ridge Medical CenterXR CHEST 2Von 16-27-2198XwzRog[place], [place] [address] XRay Report Signed Patient: YURI GALLAGHER MR#: [id number] : 1970 Acct:[id number] Age/Sex: 53 / F ADM Date: 08/15/24 Loc: PST Attending Dr: Martín Torres D.O. Ordering Physician: Martín Torres D.O. Date of Service: 08/15/24 Procedure(s): XR chest 2V Accession Number(s): [id number] cc: Martín Torres D.O.; GENEVIEVE FENG [place] [id number] Patient Name: YURI GALLAGHER MRN: [id number] date: 1970 Sex: F Assigned Patient Location: [email or web address] Accession/Order Number: [id number] Exam Date: 08/15/2024 14:45 Report Date: 08/15/2024 [...] Voss M.D. Signed By: 08/15/24 1531 DD/ 1528 TD/TT: Lunch Truck Operator:TBHRadiology, Radiologist, - 08/15/2024 [place] [address] XRay Report Signed Patient: YURI GALLAGHER MR#: [id number] : 1970 Acct:[id number] Age/Sex: 53 / F ADM Date: 08/15/24 Loc: [facility] Attending Dr: Martín Torres D.O. Ordering Physician: Martín Torres D.O. Date of Service: 08/15/24 Procedure(s): XR chest 2V Accession Number(s): [id number] cc: Martín Torres D.O.; GENEVIEVE FENG [address] [address] Patient Name: YURI GALLAGHER MRN: [id number] date: 1970 Sex: F Assigned Patient Location: [email or web address] Accession/Order Number: [id number] Exam Date: 08/15/2024 14:45 Report Date: 08/15/2024 [...] Voss M.D. Signed By: 08/15/24 1531 DD/ 1528 TD/TT: Lunch Truck Operator: REYES [facility]ville HospitalRadiology Study observation (narrative)[facility] Shout TVXR CHEST 2V Ordered By: Radiologist Radiology on 09-40-6150OPLX Sh[employer] TV Work Phone: bi MAMMOGRAM SCREENING TOMOSYNTHESIS BILATERALon 17-94-0161QR MAMMOGRAM SCREENING TOMOSYNTHESIS BILATERALThis is a summary report. The complete report [...] Screening Mammogram ELECTRONICALLY SIGNED BY: Sebastien Guajardo M.D.NormalNot AvailableUS PELVIC COMPLETE W/ TVon 09-65-7522CE PELVIC COMPLETE W/ TVEXAM: Pelvic Ultrasound, Transabdominal and Transvaginal: REASON FOR [...] 2.9 cm nodule in the left ovary withenhancement of the posterior wall, posterior acoustic enhancement. [...] report is generated using voice recognition reporting ([employer]vill[employer]). On occasion, Q1Mediae erroneously drops words from the report or replaces the spoken word with a similar sounding word. Please call with any questions/concerns regarding the report. Dictated and transcribed 08/01/2024/daniel This report has been electronically signed and approved by the interpreting radiologist.NormalNot AvailableComment on above:Order Comment: US PELVIS- TRANSVAG IF INDICATED No LMP recorded (lmp unknown). Patient has had a hysterectomy.ALL LDHon 49-86-0962BHO [Catalytic activity/Vol]178 U/L81 - 234 U/LNHospital Sisters Health System St. Vincent HospitalBeta-human chorionic gonadotropin (BhCG) detectionon 00-98-1802FUJ.beta subunit Ql (Unsp spec)Beta-human chorionic gonadotropin (BhCG) detection.[facility] CenterComment on above:Female (Non- ) 0 - 5 (Postmenopausal) 0 [...] was developed and its performancecharacteristics determined by [employer]. It has not beencleared or approved by the Food and Drug Administrationfor use as a tumor marker.Thistest is not interpretable as a tumor marker in females.Performed at: [facility] [id number] Director: Kiko Mendoza PhD, Phone: [phone] - Chemistry and Chemistry - challengeon 16-07-4647ZDZ [Catalytic activity/Vol]178 U/D51-513OzflnnqwaSamaritan Hospitalerum or plasma qncix-4-puitnqlgutf tumor marker measurement (mass/volume)on 87-44-1366PAX.tumor marker [Mass/Vol] Serum or plasma qlxpq-3-nmqafifcpor tumor marker measurement (mass/volume) 0.0-9.2FGeorgetown Behavioral HospitalComment on above:[employer] Electrochemiluminescence Immunoassay(ECLIA)Values obtained with different assay methods or kits cannotbe used interchangeably. Results cannot be interpreted asabsolute evidence of the presence or absence of malignantdisease.This test is not interpretable in females.Serum or plasma cancer antigen 125 (CA- 125) measurement (units/volume)on 70-35-6431Tbjkwl Ag 125 QnSerum or plasma cancer antigen 125 (CA-125) measurement (units/volume)0.0-38.1FGeorgetown Behavioral HospitalComment on above:[employer] Electrochemiluminescence Immunoassay(ECLIA)Values obtained with different assay methods or kits cannotbe used interchangeably. Results cannot be interpreted asabsolute evidence of the presence or absence of malignantdisease.Performed at: [facility] [id number] Director: Kiko Mendoza PhD, Phone: [phone],APTIMA HPV,AGE GDLNon 85-65-3718SEA GDLN ACOG TESTINGNote.NOMS HealthcareComment on above:TESTS RESULT FLAG UNITS REF RANGE LAB Clinician Provided Cytology Information Source.............Vagina No. of containers..01 ThinPrep Vial Age Priscilla GUTIERREZ Jeanna... 30 FLAG LEGEND: L-Low Normal,H-High Normal,LL-Alert Low,HH-Alert High <-Panic Low,>-Panic High,A-Abnormal,AA-Critical Abnormal Performed at: 01 =[address] [address] Yvette Smart MD, HPV APTIMANegativeNegativeNOMS HealthcareComment on above:This nucleic acid amplification test detects fourteen high- risk HPV types (16,18,31,33,35,39,45,51,52,56,58,59,66,68) without differentiation. Performed at: =[address] [id number] Plastic Press Operator: Yvette Smart MD, Phone: [phone] Performed at: [address] [id number] Plastic Press Operator: Yvette Smart MD, Phone: [phone] IGP, APTIMA HPV, RFX 16/18,45Note.NOMS HealthcareComment on above:TESTS RESULT FLAG UNITS REF RANGE LAB DIAGNOSIS: 02 NEGATIVE FOR INTRAEPITHELIAL LESION OR MALIGNANCY. Specimen adequacy: 02 Satisfactory for evaluation. No endocervical component is identified. Performed by: 02 Nancy Ramirez Disintegrator Feeder (ASCP) . 02 Note: Note 02 The [...] <-Panic Low,>-Panic High,A-Abnormal,AA-Critical Abnormal Performed at: [address] [address] Yvette Smart MD, SPATULA-ALONE VAGINA CLINISYNCNOMS HealthcareUS PELVIS W/ TRANSVAGINALon 89-73-8974[address] [address] Ultrasound Report Signed Patient: YURI GALLAGHER MR#: [id number] : 1970 Acct:[id number] Age/Sex: 53 / F ADM Date: 05/20/24 Loc: [facility] Attending Dr: Martín Torres D.O. Ordering Physician: Martín Torres D.O. Date of Service: 05/20/24 Procedure(s): US pelvis w/ transvaginal Accession Number(s): [id number] cc: Martín Torres D.O.; GENEVIEVE FENG [address] [address] Patient Name: YURI GALLAGHER MRN: [id number] date: 1970 Sex: F Assigned Patient Location: [facility] Current Patient Location: Accession/Order Number: [id number] Exam Date: 05/20/2024 10:58 Report Date: 05/21/2024 15:18 At the request of: MARTÍN TORRES Procedure: US pelvis w/ transvaginal EXAMINATION: [...] left ovarian cyst Electronically authenticated by: FLORESITA ABBOTT Date: 05/21/2024 15:18 Dictated By: Floresita Abbott M.D. Signed By: 05/21/24 1520 DD/ 1518 TD/TT: Lunch Truck Operator:KAIHRadiologjose maria, Radiologist, MD - 05/21/2024 [place] [address] Ultrasound Report Signed Patient: YURI GALLAGHER MR#: [id number] : 1970 Acct:[id number] Age/Sex: 53 / F ADM Date: 05/20/24 Loc: [facility] Attending Dr: Martín Torres D.O. Ordering Physician: Martín Torres D.O. Date of Service: 05/20/24 Procedure(s): US pelvis w/ transvaginal Accession Number(s): [id number] cc: Martín Torres D.O.; GENEVIEVE FENG [address] [address] Patient Name: YURI GALLAGHER MRN: [id number] date: 1970 Sex: F Assigned Patient Location: [facility] Current Patient Location: Accession/Order Number: [id number] Exam Date: 05/20/2024 10:58 Report Date: 05/21/2024 15:18 At the request of: MARTÍN TORRES Procedure: US pelvis w/ transvaginal EXAMINATION: [...] left ovarian cyst Electronically authenticated by: FLORESITA ABBOTT Date: 05/21/2024 15:18 Dictated By: Floresita Abbott M.D. Signed By: 05/21/24 1520 DD/ 1518 TD/TT: Lunch Truck Operator: REYES HealthcareRadiology Study observation (narrative)[facility] HealthcareUS PELVIS W/ TRANSVAGINALOrdered By: Radiologist Radiology on 33-65-4644YCWB Healthcare Work Phone: cNOVon [phone] Visit ([facility]) SOCORRO GALLAGHER ([id number]) 1970 F Date Time Provider Department 05/14/24 3:30 PM MARSHA LANDA [facility] During your visit today, we recorded the following information about you: Weight 64 kg Marsha Landa APRN.SUPERVISING NURSE 05/14/2024 4:32 PM Signed Spine Care Path [...] has been under the care of her portrait painter with MRI thoracic spine imaging completed [...] pain Pat presesnt 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 Nonsmoker Pain localized to area below [...] Physical Therapy: None Treating Physicians: Genevieve Feng SUPERVISING NURSE - PCP Dr Melgar - Plastic Surgery [...] history on file. ALLERGIES (more content not included)...NormalCleveland Clinic ClevelandCNPNon 87-10-1411KNORPonkbjtzq ([facility]) SOCORRO GALLAGHER ([id number]) 1970 F Date Time Provider Department 05/13/24 MARSHA LANDA [facility] During your visit today, we recorded the following information about you: Genevieve Barbosa 05/13/2024 12:08 PM Signed Socorro is calling Marsha Landa APRN.SUPERVISING NURSE today to ask if you can see her MRI results from [facility], which are for tomorrow's appointment. They told her they were sent to the Imaging [facility], but when she tries to call she just gets disconnected. Please advise. Patient has been identified by name and birthdate. Duration of symptoms: N/A Person calling: self Call patient at: at home [phone] (home) [phone] (cell) Was an appointment scheduled: No Closing statement: Results or non-symptom based questions: Thank you for calling [facility], your call will be returned within the next business day. Dana Duffy, HERBIE 05/13/2024 12:31 PM Signed Neuro SPINE CARE COORDINATION EDEL BASS Spoke with patient and advised her that we don't have any Thoracic MRI images or report yet and to get a CD from [facility] to bring to the appointment with Marsha tomorrow. She verbalized understanding. I also sent an email to the [employer] to see if they have anything pending [...] Fully Assessed Reason for Visit: Patient Question [3690] Prescriptions as of 05/13/2024 - aspirin, enteric [...] (None) Encounter Status:Closed by DANA LOZANO on 05/13/24[facility] SystemPathology Request for Lab Corpon 61-85-2795Owessjulk Request for Lab CorpUF Health North Physician GroupComment on above:Order Comment: PATHOLOGY GI SPECIMENResult Comment: See report. Scanned copy available in EMR. PERFORMED BY: [place] [address] PATHOLOGIST REAL ESTATE INVESTMENT ANALYST ANUSHA ROMO M.D.Performed By: #### PATH [facility] #### [place] [address] USAXR pre/post mri xrayon 52-31-4429BD pre/post mri xray [facility] Main [place] [address] [place] [address] MRI Report Signed Patient: Yuri Gallagher MR#: [id number] : 1970 Acct:[id number] Age/Sex: 53 / F ADM Date: 05/02/24 Loc: [facility] Room: Type: [facility] Attending Dr: Jose Guadalupe Costa MD Copies to: Jose Guadalupe Costa Ordering Provider: Jose Guadalupe Costa Date of Service: 05/02/24 MR/MR thoracic spine wo con: THORACIC NEURITIS ([id number]) XR/XR pre/post mri xray: THORACIC NEURITIS MR [...] Austin Marsh M.D.05/02/2024 12:53 PM Dictation Location: [place] [address] Transcribed By: [facility] 05/02/24 9790 Dictated By: Austin Marsh II, MD 05/02/24 1241 Signed By: 05/02/24 1253UF Health North Physician GroupCT ENTEROGRAPHY W IVCONon 57-74-0881IO ENTEROGRAPHY W IVCON* * *Final Report* * * DATE OF EXAM: Apr 25 2024 2:22PM [facility] 0545 - CT ENTEROGRAPHY W [...] unilocular left adnexal cyst, stable since 03/23/2023. Lunch Truck Operator: MARISOL Transcribe Date/Time: Apr 25 2024 2:55P Dictated by : ODALIS GALAVIZ MD This examination was interpreted and the report reviewed and electronically signed by: ODALIS GALAVIZ MD on Apr 25 2024 3:13PM EST [id number] Medical Center Small bowel W contrast PO and W contrast Lata 44-80-0285RKLRIHTVFM: No active small bowel inflammation or acute process in the abdomen/pelvis. 3.6 cm unilocular left adnexal cyst, stable since 03/23/2023. Lunch Truck Operator: MARISOL Transcribe Date/Time: Apr 25 2024 2:55P Dictated by : ODALIS GALAVIZ MD This examination was interpreted and the report reviewed and electronically signed by: ODALIS GALAVIZ MD on Apr 25 2024 3:13PM [facility] DIVISION OF RADIOLOGY* * *Final Report* * * DATE OF EXAM: Apr 25 2024 2:22PM [facility] 0545 - CT ENTEROGRAPHY W [...] osseous lesion. Lung Bases: Unremarkable. DIVISION OF RADIOLOGYProvider, [facility] Leonard - 04/25/2024 * * *Final Report* * * DATE OF EXAM: Apr 25 2024 2:22PM [facility] 0545 - CT ENTEROGRAPHY W [...] unilocular left adnexal cyst, stable since 03/23/2023. Lunch Truck Operator: PSCB Transcribe Date/Time: Apr 25 2024 2:55P Dictated by : ODALIS GALAVIZ MD This examination was interpreted and the report reviewed and electronically signed by: ODALIS GALAVIZ MD on Apr 25 2024 3:13PM [facility] HospitalRadiology Study observation (narrative)[facility] Small bowel W contrast PO and W contrast IVOrdered By: Ccf Provider on 04-25-2024 Tiffany [place] [address]([place])D3 [facility] [place] 277384-bhoghapyvvobdo D3 [Mass/Vol] 39.3 ng/sCAerzic69.0-80.0[facility] Campus Medical CenterComment on above:Order Comment: Specimen Type: BLOOD SPECIMEN Ordering Facility: [facility] Address: [address] [place], [place] [address]Result Comment: Classification of 25 [place] Vitamin D status: Deficiency/Insufficiency: < or = 30 ng/ml. Sufficiency/Optimal Levels: 31-80 ng/mL Toxicity: > 100 ng/mL. Test performed by chemiluminescent immunoassay.Performed By: #### 1989-3 #### [facility] CLIA [id number] [address] [place] [address] STATES OF [facility] HOSPITALCB panel Auto (Bld)on 20-81-4724Sngmggkjyvd distribution width (RBC) [Ratio]12.4 %11.5 - 15.0 % [facility] HospitalHematocrit (Bld) [Volume fraction]37.7 %36.0 - 46.0 %[facility] HospitalHemoglobin (Bld) [Mass/Vol]12.5 g/dL11.5 - 15.5 g/dLOhiohealth Grady Memorial Hospital Interpretation and review of laboratory resultsNormalClevelWaseca Hospital and ClinicH (RBC) [Entitic mass]30.8 pg26.0 - 34.0 pgClevelWaseca Hospital and ClinicHC (RBC) [Mass/Vol]33.2 g/dL30.5 - 36.0 g/dLEast Liverpool City HospitalV (RBC) [Entitic vol]92.9 fL80.0 - 100.0 fLCleveland ClinicNucleated RBC (Bld) [#/Vol]NINFClevelnovant health presbyterian medical center ClinicPlatelet mean volume (Bld) [Entitic vol]10.6 fL9.0 - 12.7 fLClevelnovant health presbyterian medical center ClinicPlatelets (Bld) [#/Vol]274 10*3/uLOhiohealth Grady Memorial HospitalRBC (Bld) [#/Vol]4.06 10*6/uL3.90 - 5.20 m/uL [facility] HospitalWBC (Bld) [#/Vol]5.79 10*3/uLWexner Medical Center Erythrocyte distribution width (RBC) [Ratio]12.4 %Zamvzs66.5-15.0[facility] on above:Order Comment: Specimen Type: BLOOD SPECIMENOrdering Facility: [facility] Address:[address] [place], [place] [address]Performed By: #### 50028-9 ####[facility]IA [id number] [place] [address] [place] OF AMERICAHematocrit (Bld) [Volume fraction]37.7 %Hesmoc09.0-46.0[facility] on above:Order Comment: Specimen Type: BLOOD SPECIMENOrdering Facility: [facility] Address:[address] [place], [place] [address]Performed By: #### 34506-7 ####[facility]IA [id number] [place] [address] [place] Hemoglobin (Bld) [Mass/Vol]12.5 g/hYKxbfaq22.5-15.5CKindred Healthcare Comment on above:Order Comment: Specimen Type: BLOOD SPECIMENOrdering Facility: [facility] Address:[address] [place] [address] Performed By: #### 87848-4 ####[facility]IA [id number] [place] [address] [place] MCH (RBC) [Entitic mass]30.8 xyQxneol24.0-34.0[facility] on above:Order Comment: Specimen Type: BLOOD SPECIMENOrdering Facility: [facility] Address:[address] [place] [address] Performed By: #### 47895-7 ####[facility]IA [id number] [place] [address] [place] MCHC (RBC) [Mass/Vol]33.2 g/mEJesacw48.5-36.0[facility] on above:Order Comment: Specimen Type: BLOOD SPECIMENOrdering Facility: [facility] Address:[address] [place] [address] Performed By: #### 41837-3 ####[facility] LABCLIA [id number] [place] [address] [place] MCV (RBC) [Entitic vol]92.9 rHGegmnz42.0-100.0[facility] on above:Order Comment: Specimen Type: BLOOD SPECIMENOrdering Facility: [facility] Address:[address] [place] [address] Performed By: #### 07077-3 ####[facility]IA [id number] [place] [address] [place] Nucleated RBC (Bld) [#/Vol]10*3/uLNormal<0.01[facility] on above:Order Comment: Specimen Type: BLOOD SPECIMENOrdering Facility: [facility] Address:[address] [place] [address] Performed By: #### 78571-2 ####[facility]IA [id number] [place] [address] [place] Platelet mean volume (Bld) [Entitic vol]10.6 fLNormal9.0-12.7CGalion Hospital on above:Order Comment: Specimen Type: BLOOD SPECIMENOrdering Facility: [facility] Address:[address] [place], [place] [address]Performed By: #### 33156-8 ####[facility] LABCLIA [id number] [place] [address] [place] Platelets (Bld) [#/Vol]274 10*3/iBRroxvu677-099SlrmcyknxCherrington Hospital on above:Order Comment: Specimen Type: BLOOD SPECIMENOrdering Facility: [facility] Address:[address] [place] [address] Performed By: #### 00750-4 ####[facility] LABCLIA [id number] [place] [address] [place] RBC (Bld) [#/Vol]4.06 10*6/uLNormal3.90-5.20[facility] on above:Order Comment: Specimen Type: BLOOD SPECIMENOrdering Facility: [facility] Address:[address] [place], [place] [address]Performed By: #### 14044-5 ####[facility] LABCLIA [id number] [place] [address] [place] AMERICAWBC (Bld) [#/Vol]5.79 10*3/uLNormal3.70-11.00[facility] on above:Order Comment: Specimen Type: BLOOD SPECIMENOrdering Facility: [facility] Address:[address] [place], [place] [address]Performed By: #### 98566-5 ####[facility] LABCLIA [id number] [place] [address] [place] AMERICACRP SerPl-mCncon 62-65-0020MZW [Mass/Vol]mg/LNormal<0.9CGalion Hospital on above:Order Comment: Specimen Type: BLOOD SPECIMENOrdering Facility: [facility] Address:[address] [place], [place] [address]Performed By: #### 00796- 8, 1987-11 ####[facility] LABCLIA [id number] [facility] [place] [address] [place] AMERICAComprehensive metabolic 2000 panelon 96-44-2683Vyqpqad [Mass/Vol]4.5 g/dLNormal3.9-4.9CGalion Hospital on above:Order Comment: Specimen Type: BLOOD SPECIMENOrdering Facility: [facility] Address:[address] [place], [place] [address]Performed By: #### 70079-4, 1987-11 ####[facility] LABCLIA [id number] [address] [address] [place] OF AMERICAALP [Catalytic activity/Vol]80 U/XRxkvqy30-131EullaokocMetrohealth Main Campus Medical Center Comment on above:Order Comment: Specimen Type: BLOOD SPECIMENOrdering Facility: [facility] Address:[facility] [place] [id number] Performed By: #### 10822-9, 1987-11 ####[facility] LABCLIA [id number] [place] [address] [place] ALT [Catalytic activity/Vol]14 U/LNormal7-38[facility] Medical CenterComhealthsource [place] on above:Order Comment: Specimen Type: BLOOD SPECIMENOrdering Facility: [facility] Address:[address] [place], [place] [address]Performed By: #### 16752-8, 1987-11 ####[facility] LABCLIA [id number] [place] [address] [place] AMERICAAnion gap [Moles/Vol] 12 mmol/LNormal8-15[facility] Medical CenterComment on above:Order Comment: Specimen Type: BLOOD SPECIMENOrdering Facility: [facility] Address:[address] [place], [place] [address]Performed By: #### 34936-5, 1987-11 ####[facility] LABCLIA [id number] [place] [address] [place] AMERICAAST [Catalytic activity/Vol]26 U/HNucady08-27BhuoooaukCherrington Hospital on above:Order Comment: Specimen Type: BLOOD SPECIMENOrdering Facility: [facility] Address:[address] [place], [place] [address]Performed By: #### 02107-5, 1987-11 ####[facility] LABCLIA [id number] [address] [address] [place] AMERICABilirubin [Mass/Vol]0.2 mg/dLNormal0.2-1.3 [facility] on above:Order Comment: Specimen Type: BLOOD SPECIMENOrdering Facility: [facility] Address:[address] [place] [id number] By: #### 48915-2, 1987-11 ####[facility] LABCLIA [id number] [place] [address] [place] AMERICACalcium [Mass/Vol]9.6 mg/dLNormal8.5-10.2CGalion Hospital on above:Order Comment: Specimen Type: BLOOD SPECIMENOrdering Facility: [facility] Address:[address] [place], [place] [address]Performed By: #### 64894-5, 1987-11 ####[facility] LABCLIA [id number] [place] [address] [place] AMERICAChloride [Moles/Vol]102 mmol/SSdrggh27-178UlilbojbuMetrohealth Main Campus Medical Center Comment on above:Order Comment: Specimen Type: BLOOD SPECIMENOrdering Facility: [facility] Address:[address] [place], [place] [address] Performed By: #### 39565-0, 1987-11 ####[facility] LABCLIA [id number] [place] [address] [place] CO2 [Moles/Vol]24 mmol/WHieeri75-50EjkwoinjjCherrington Hospital on above: Order Comment: Specimen Type: BLOOD SPECIMENOrdering Facility: [facility] Address:[address] [place], [place] [address]Performed By: #### 18257- 8, 1987-11 ####[facility] LABCLIA [id number] [facility] ENUEDESK [address] [address] [place] AMERICACreatinine [Mass/Vol] 0.78 mg/dLNormal0.58-0.96[facility] Medical CenterComhealthsource [place] on above:Order Comment: Specimen Type: BLOOD SPECIMENOrdering Facility: [facility] Address:[address] [place], [place] [address]Performed By: #### 54850- 1987-11 ####[facility] LABCLIA [id number] [facility]LEYLID AV ENUEDESK [id number] [place] [address] [place] AMERICACreatinine and Glomerular filtration rate.predicted panel (S/P/Bld)91 mL/min/1.73m???Normal>=60 [facility] Medical CenterComment on above:Order Comment: Specimen Type: BLOOD SPECIMENOrdering Facility: [facility] Address:[address] [place], [place] [address]Result Comment: Estimated Glomerular Filtration Rate (eGFR) is calculated using the 2020 CKD-EPI creatinine equation. This equation utilizes serum creatinine, sex, and age as parameters. The creatinine assay has traceable calibration to isotope dilution-mass spectrometry. Refer to KDIGO guidelines for clinical interpretation. In patients with unstable renal function, e.g. those with acute kidney injury, the eGFR may not accurately reflect actual GFR.Performed By: #### 08354-6, 1987-11 ####[facility] LABIA [id number] [facility] [place] [address] [place] AMERICAGlucose [Mass/Vol]94 mg/eZIxrksw91-16VbtzlefqpMetrohealth Main Campus Medical Center Comment on above:Order Comment: Specimen Type: BLOOD SPECIMENOrdering Facility: [facility] Address:[address] Comment: The [place] Diabetes Association (ADA) provides guidance for cutoff [...] Standards of Medical Care in Diabetes 2016, [place] [employer]. Diabetes Care. 2016.39(Suppl 1).Performed By: #### 93284-0, 1987-11 ####[facility] LABCLIA [id number] [place] [address] [place] AMERICAPotassium [Moles/Vol]4.5 mmol/L Normal3.7-5.1CGalion Hospital on above:Order Comment: Specimen Type: BLOOD SPECIMENOrdering Facility: [facility] Address:[address] [place], [place] [address]Performed By: #### 12741-7, 1987-11 ####[facility] LABCLIA [id number] [place] [address] [place] AMERICAProtein [Mass/Vol]7.7 g/dLNormal6.3-8.0[facility] Medical CenterComment on above:Order Comment: Specimen Type: BLOOD SPECIMENOrdering Facility: [facility] Address:[address] [place], [place] [address]Performed By: #### 79792-6, 1987-11 ####[facility] LABCLIA [id number] [place] [address] [place] AMERICASodium [Moles/Vol]138 mmol/DOvgfsd193-062XfvxrilvyCherrington Hospital on above:Order Comment: Specimen Type: BLOOD SPECIMENOrdering Facility: [facility] Address:[address] [place], [place] [address]Performed By: #### 20228-8, 1987-11 ####[facility]IA [id number] [place] [address] [place] AMERICAUrea nitrogen [Mass/Vol]11 mg/dLNormal7-21[facility] Comment on above:Order Comment: Specimen Type: BLOOD SPECIMENOrdering Facility: [facility] Address:[address] [place] [address] Performed By: #### 02237-8, 1987-11 ####[facility] LABCLIA [id number] [place] [address] [place] Office Visiton 81-53-9113Mxkzqz-up [id number] Yuri Gallagher 1970 F Date Provider Department Center 04/08/2024 3848-SEDA DOUGLASS CARD [facility] Family History Problem Relation Age of Onset No Known Problems Mother Heart attack Father Coronary artery disease Father's Brother Stroke Paternal Grandfather Family Status - Relation Status Age at Mother Father Father's Brother Paternal Grandfather Level of Service:41861 MI OFFICE/OUTPATIENT ESTABLISHED LOW MDM 20 [facility] SystemLabor[facility] - Chemistry and Chemistry - challengeon 10-45-1453Hrfybqsbz Ql (U)NegativeDiley Ridge Medical Center Glucose (U) [Mass/Vol]NegativeDiley Ridge Medical CenterKetones Ql (U) [facility] HospitalpH (U)9.0 [pH]Samaritan Hospitalpecific gravity (U) [Rel density]1.005D[facility] Ridge Medical CenterUrobilinogen (U) [Mass/Vol]0.2 mg/dLDiley Ridge Medical Center Laboratory - Microbiology and Antimicrobial susceptibilityOrdered By: Genevieve Feng on 67-34-7358Voiupezl identified Cx Nom (U)Escherichia coliAbnormal [facility] CenterLaboratory - Specimen informationon 04-02-2024 Appearance (U)[facility]HealthColor (U)[facility]HealthLaboratory - Urinalysison 39-75-0803Qsxowxybp esterase Test strip Ql (U)1+[facility] Medical CenterNitrite Ql (U)Negative [facility] CenterProtein Ql (U)[facility] Memorial HospitalNo Panel Informationon 59-72-4907Uwtir Occult Blood3+[facility] Medical CenterUrine Cultureon 47-81-8348Fkwssugv identified Cx Nom (U) ORGANISM: Escherichia coli (O:ESCCOL) [place] Count >100,000 Aerobic LEXIS Charge (NMIC56) SUSCEPTIBILITY [...] <4 Tigecycline S <2 Tobramycin S <2 Trimethoprim/Sulfamethoxazole S <0.5 S = SUSCEPTIBLE I = [...] RESISTANT TO ALL B-LACTAM DRUGS. PERFORMED BY: [place] [address] PATHOLOGIST REAL ESTATE INVESTMENT ANALYST ANUSHA ROMO M.D.[facility] North Physician GroupComment on above:Performed By: #### CUU #### [place] [id number] USAon 90-75-3266SD Attestation signed by Seda Douglass MD at [...] wishes to proceed. Amairani Tinoco MD PGY-4 elementary school director [facility] HamiltonalUniTogus VA Medical CenterNURSNOTEon 50-91-8541ZTAFOXSGOR educated pt on d/c instructions. RN encouraged pt to voice any questions or concerns. Pt verbalizes no questions or concerns at this time. Pt was wheeled off of unit with all of belongings.NormalUnUniversity Hospitals Health System Basophils Auto (Bld) [#/Vol]on 77-89-6780Kazdyrfbx (Bld) [#/Vol]0.0 10 3/uL 0.0-0.1FGeorgetown Behavioral HospitalBasophils/100 WBC Auto (Bld)on 97-72-8976Nsytiilfa/100 WBC (Bld)0.6 %0.2-2.0[facility] Eosinophils/100 WBC Auto (Bld)on 47-97-9302Ceufznzefrx/100 WBC (Bld)2.4 %0.9-7.0 [facility] CenterErythrocyte distribution width Auto (RBC) [Ratio]on 38-79-0973Vvmnewoxtfm distribution width (RBC) [Ratio]12.0 %11.0-15.0 [facility] CenterEstimated glomerular filtration rate (GFR) non- Americanon 26-23-4190WIO/1.73 sq M.predicted among non-blacks MDRD (S/P/Bld) [Vol rate/Area]mL/min/{1.73_m2}>=60[facility] Hematocrit Auto (Bld) [Volume fraction]on 88-20-7881Rnyjtginuj (Bld) [Volume fraction]36.7 %36.0-48.0[facility] Medical CenterHemoglobin [Mass/volume] in Bloodon 33-10-1522Dpdydwsygk (Bld) [Mass/Vol]12.3 g/dL12.0-16.0 [facility] CenterLaboratory - Chemistry and Chemistry - challengeon 55-31-5137Qcnuekc [Mass/Vol]8.8 mg/dL8.5-10.1FGeorgetown Behavioral HospitalChloride [Moles/Vol]99 mmol/F17-710YhcfwmikzDiley Ridge Medical CenterCO2 [Moles/Vol]32.4 mmol/LHigh21.0-32.0[facility] Creatinine [Mass/Vol]0.66 mg/dL0.55-1.02[facility] GFR/1.73 sq M.predicted MDRD (S/P/Bld) [Vol rate/Area]mL/min/{1.73_m2}>=60 [facility] CenterGlucose [Mass/Vol]97 mg/nD96-177DbovfkzybDiley Ridge Medical CenterPotassium [Moles/Vol]4.3 mmol/L3.5-5.1FUniversity Hospitals Geauga Medical Centerodium [Moles/Vol]136 mmol/X265-604TvfefwlqsDiley Ridge Medical CenterUrea nitrogen [Mass/Vol]17.0 mg/dL7.0-18.0[facility] Medical CenterUrea nitrogen/Creatinine [Mass ratio]25.8 mg/mgDiley Ridge Medical CenterLaboratory - Hematology and Cell countson 54-96-9247Fzglsqjc granulocytes/100 WBC (Bld)0.0 %0.0-0.5FGeorgetown Behavioral Hospital Leukocytes [#/volume] corrected for nucleated erythrocytes in Blood by Automated counon 63-55-9254SWP corrected for nucl RBC Auto (Bld) [#/Vol]6.3 10 3/uL 4.0-11.0[facility] Medical CenterLymphocytes Auto (Bld) [#/Vol]on 60-05-2868Uagfjqcwlir (Bld) [#/Vol]1.7 10 3/uL1.2-3.8[facility] Medical CenterLymphocytes/100 WBC Auto (Bld)on 61-15-2589Sgrmnkfbscp/100 WBC (Bld)27.0 % 20.5-60.0[facility] HospitalH Auto (RBC) [Entitic mass]on 37-45-0116NML (RBC) [Entitic mass]31.1 pg26.7-34.0[facility] Medical CenterMCHC Auto (RBC) [Mass/Vol]on 84-14-7700OPYK (RBC) [Mass/Vol]33.5 g/dL 29.9-35.2FGeorgetown Behavioral HospitalMCV Auto (RBC) [Entitic vol]on 49-41-1093DZI (RBC) [Entitic vol]92.7 fL81.0-99.0[facility] Medical CenterMonocytes Auto (Bld) [#/Vol]on 95-47-7745Goaejfxjj (Bld) [#/Vol]0.5 10 3/uL0.3-0.8[facility] CenterMonocytes/100 WBC Auto (Bld)on 68-47-9981Wnegbqwur/100 WBC (Bld)7.7 %1.7-12.0[facility] Neutrophils Auto (Bld) [#/Vol]on 63-44-5956Ksmlgemkdqt (Bld) [#/Vol]3.9 10 3/uL 1.4-6.5FGeorgetown Behavioral HospitalNeutrophils/100 WBC Auto (Bld)on 98-43-0600Ywiknjaqddi/100 WBC (Bld)62.3 %43.0-75.0[facility] CenterNo Panel Informationon 81-19-7351Vzpmbkzcssi # (Auto)0.2 10 3/uL0.0-0.7 [facility] Medical CenterImmature Granulocyte # (Auto)0.00 10 3/uL 0.00-0.03[facility] Medical CenterPlatelet mean volume Auto (Bld) [Entitic vol]on 16-77-6271Ourjnoik mean volume (Bld) [Entitic vol]9.7 fL9.5-13.5 [facility] CenterPlatelets Auto (Bld) [#/Vol]on 03-13-2024 Platelets (Bld) [#/Vol]246 10 3/nM705-534EoihiykpkDiley Ridge Medical CenterRBC Auto (Bld) [#/Vol]on 53-42-0620RFR (Bld) [#/Vol]3.96 10 6/uLLow4.20-5.40 Samaritan Hospitalerum or plasma anion gap determinationon 48-43-0927Gmdko gap [Moles/Vol]8.9 mmol/LFGeorgetown Behavioral HospitalOffice Visiton 69-59-3234Pilcmg-up [id number] Yuri Gallagher 1970 Date Provider Department Center 03/04/2024 SEDA HOLM BRANDY Martin Family History Problem Relation Age of Onset No Known Problems Mother Heart attack Father Coronary artery disease Father's Brother Stroke Paternal Grandfather Family Status - Relation Status Age at Mother Father Father's Brother Paternal Grandfather Level of Service:75418 MI OFFICE/OUTPATIENT NEW MODERATE MDM 45 MINUTESNormal Lutheran HospitalOrders Onlyon 86-13-2368Gimudr [id number] Yuri Gallagher 1970 Date Provider Department Center 03/04/2024 TANISHA ANDINO BRANDY Martin Family History Problem Relation Age of Onset No Known Problems Mother Heart attack Father Coronary artery disease Father's Brother Stroke Paternal Grandfather Family Status - Relation Status Age at Mother Father Father's Brother Paternal GrandfatherNParma Community General HospitalCNOV 06-21-2023 CNOVOffice Visit ([facility]) SOCORRO GALLAGHER ([id number]) 1970 F Date Time Provider Department 06/21/23 8:00 AM MARSHA LNADA [facility] During your visit today, we recorded the following information about you: Weight Height 64 kg 1.6 m Marsha Landa APRN.SUPERVISING NURSE 06/21/2023 9:30 AM Signed Spine Care [...] the care of pain management in [facility] where she recently underwent a right gluteal nerve block without improvement in symptoms. She states that at postinjection follow-up she was offered a piriformis injection but is reluctant to proceed. She reports that she recently had an EMG completed. EMG results were not available at time of today's appointment. 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 Nonsmoker Pain localized to right [...] prednisone Physical Therapy: Spring 2022 attended at [facility] , she states sessions were [...] hearing. CARDIOVASCULAR: Denies christina (more content not included)...NormalRegency Hospital Cleveland West - Ultrasound Reporton 10-43-6309SXH - Ultrasound Report [id number]#1.00CD:127NoProvidence HospitalCoding Summary.on 35-79-8624Cjtxmc Summary.CODING DATE: 07/31/2020 FINAL [facility] STATUS: Home (Routine DC) PAYOR: [facility] [place] [facility] DESCRIPTION 5373 Level 3 Urology and [...] By: So Valle Date Saved: 07/31/2020 12:41 pmNClermont County HospitalConsent for Procedure/Surgeryon 78-48-5540Pbtjvjz for Procedure/Surgery [id number]#1.00CD:127[facility] HospitalConsent for Treatmenton 28-33-2593Sfxqjkj for Treatment [id number]#1.00CD:[address] [place], [place] [address]Discharge Instructionson 74-72-5376Mfpqzlnlr Instructions [id number]#1.00CD:[address] [place], [place] [address]History and Physicalon 37-86-9834Qonjuvv and Physical [id number]#1.00CD:[address] [place], [place] [address]IntraOperative Documentson 03-56-8937AhtkiPrgnbkqqn Documents [id number]#1.00CD:[address] [place], [place] [address]Main OR Intraoperative Recordon 21-96-6465Ygfk OR Intraoperative Record IntraOp Document Type FTURO Summary Primary Physician: Facundo Fam Jr., MD Finalized Date/Time: 07/30/20 13:50:41 Pt. Name: YURI GALLAGHER Isidro Mireles/Sex: 1970 Female Med Rec #: [id number] Physician: Facundo Fam Jr., MD Financial #: [id number] Pt. Type: O Room/Bed: / Admit/Disch: 07/30/20 13:06:47 - Institution: Case Times FTURO Entry 1 Patient Times In Room 07/30/20 13:40:00 Out Room 07/30/20 13:51:00 Procedure Times Start 07/30/20 13:46:00 Stop 07/30/20 13:47:00 Anesthesia Times Last Modified By: Colleen RN, LUKEOR, Diana Avliez 07/30/20 13:50:14 Case Attendance FTURO Entry 1 Entry 2 Entry 3 Case Attendee Sarwat Yadav MD, Facundo Macias RN, CNOR, Diana Avilez [facility], Marisela Reeves Role Performed Surgeon - Primary Learning Facilitator - Primary Scrub - Primary Time In [...] LYNSEY Macias RN, Diana Applicable) Hamida Avilez CST Marisela E Time Out Complete 07/30/20 13:44:00 Allergies [...] By: LYNSEY Macias RN, Lou Ann 07/30/20 13:50NoProvidence HospitalMain OR Preoperative Recordon 63-06-2479Tcgv OR Preoperative RecordHolding Area Document Type FTURO Summary Primary Physician: Facundo Fam Jr., MD Finalized Date/Time: 07/30/20 13:41:28 Pt. Name: YURI GALLAGHERO.B./Sex: 1970 Female Med Rec #: [id number] Physician: Facundo Fam Jr., MD Financial #: [id number] Pt. Type: O Room/Bed: / Admit/Disch: 07/30/20 [...] or her perioperative plan of care The patient'sright to privacy is maintained Surgery Checklist FTURO [...] LYNSEY Macias RN, Lou Ann 07/30/20 13:41 [facility]acon[facility] HospitalOperative Reporton 45-40-9174Zgnfdmslx Report Patient: YURI GALLAGHER Age: 49 years [...] urine. The Urethra was dilated to: 28 Syrian w/ sounds. Devices Implanted: None. Removal: Cystoscope is removed, The patient tolerated it well. Postoperative Information Discharge: Patient is discharged home with antibiotic coverage, Follow up arranged.[facility]acon[facility] HospitalComment on above:Result Comment: Electronically Signed By: Facundo Fam Jr., MD\.br\Date and Time Signed: 07/30/2112:51 ESTPatient Educationon 18-68-7273Yxfuqqr EducationCystoscopy with Urethral Dilation ? Voiding after the [...] if you have a fever over 100 degreesNoProvidence Hospital Ambulatory Clinical Summaryon 33-34-1412Ajkzyoqzxs Clinical Summary {1r-12-p5-48-99-4t-3m-5e-y1-6n-g1-94-db-90-09-ea}CD:[id number] Deaconess HospitalAmbulatory Clinical Summary {10-9s-ax-nc-y6-69-65-44-01-q1-02-5d-8f-1f-22-29}CD:[id number] Deaconess HospitalPatient Educationon 47-57-4581Bgoujsb EducationUrinary Tract Infection Urinary tract infections (UTIs) can [...] your symptoms. Your caregiver also will ask toprovide a urine sample. The urine sample will [...] exactly as your caregiver instructs you. Finish themedication even if you feel better after you [...] Document Reviewed: 08/03/2012 ExitCare? Patient Information ?2013 [employer].[facility] HospitalUrology Office/Clinic Noteon 48-00-7438Vihruvv Office/Clinic NoteChief Complaint Pt is new and refferred by [...] Pt is new and referred by Dr. Mrotensen for recurrent UTI. Pain with urination:Pt denies [...] Will order Local anesthesia. ABX sent to [facility] in [place]. Ordered: Urology Procedure Order US Renal 2. [...] day(s), # 2 tab(s), Refills(s) 0, Pharmacy: [facility]/pharmacy #[id number], 162, cm, 07/21/20 13:48:00 EST, Height/Length Dosing, 68.5, kg, 07/21/20 13:48:00 EST, Weight Dosing Urnls Dip Stick Auto w/o Microscopy POC 95647 I have reviewed the previous health record information and history for this pt. from Dr. Fam. Follow-up With When Contact Information Sarwat Yadav MD, Facundo Felix [address] [place] [address] [place] [address]- Additional Instructions: Patient Education Urinary Tract Infection [...] Protein Urine Dipstick: Negative (07/21/20 13:39:00) Specific [place] Urine Dipstick: 1.020 (07/21/20 13:39:00) Urine Appearance [...] past she is been treated with Bactrim DS.[facility] Deaconess HospitalComment on above:Result Comment: Electronically Signed By: Sarwat Yadav MD, Facundo Felix\.br\Date and Time Signed: 07/21/2113:42 EST\.br\Electronically Co-Signed By: Lety Marino MA\.br\Date and Time Co-Signed: 07/21/20 14:31 EST Vital Signs Date TimeVital SignValuePerforming JzebqbnjqWcjviymy69-68-1114 08:23-0500Body ithqqi817.02 cmGenevieve Feng TAPE MAKING MACHINE OPERATOR Work Phone: [facility]11-07-2025 08:23-0500 Body mass index (BMI) [Ratio]25.4 kg/h1AmdmpkhnGenevieve Feng TAPE MAKING MACHINE OPERATOR Work Phone: [phone]11-07-2025 08:23-0500 Body qwoppf49.31 kgGenevieve Feng TAPE MAKING MACHINE OPERATOR Work Phone: [phone]11-07-2025 08:23-0500 Diastolic blood mm[Hg]Genevieve Jung TAPE MAKING MACHINE OPERATOR Work Phone: [phone]11-07-2025 08:23-0500 Heart rate78 /minGenevieve Feng TAPE MAKING MACHINE OPERATOR Work Phone: [facility]11-07-2025 08:23-0500 Respiratory rate14 /minGenevieve Feng TAPE MAKING MACHINE OPERATOR Work Phone: [facility]11-07-2025 08:23-0500 SaO2% (BldA) [Mass fraction]96 %Genevieve Jung LEAVITT Work Phone: [facility]11-07-2025 08:23-0500 Systolic blood yjdxzpgt531 mm[Hg]Genevieve Jung LEAVITT Work Phone: [facility]08-14-2025 11:37-0400 Body mass index (BMI) [Ratio]25.58 kg/l7DzobcfcxTeressa Tello CUSTOMER CARE REPRESENTATIVE Work Phone: [phone]08-14-2025 11:37-0400Body stafsz05.5 kg Teressa Ridleyly CUSTOMER CARE REPRESENTATIVE Work Phone: [phone] [place], [place] 0254008-14-2025 11:37-0400Diastolic blood sjflbjys87 mm[Hg]Teressa Ridleyly CUSTOMER CARE REPRESENTATIVE Work Phone: [phone])[address] [place], [place] 0254008-14-2025 11:37-0400Systolic blood lefvxtpv002 mm[Hg]Teressa Elisha CUSTOMER CARE REPRESENTATIVE Work Phone: [phone] [place], [place] 0254003-19-2025 15:30-0400Body isedoq833.02 cmCorey Brian DO Work Phone: [phone] [place], [place] 6711103-19-2025 15:30-0400 Body mass index (BMI) [Ratio]25.4 kg/s2Zdscc Brian DO Work Phone: [phone] [place], [place] 6795103-19-2025 15:30-0400 Body jgjlyrijrvu02.4 [degF]Martín Brian DO Work Phone: [phone] [place], [place] 6711103-19-2025 15:30-0400 Body xyufjm63.31 kgCorey Brian DO Work Phone: [phone])[address] [place], [place] 6711103-19-2025 15:30-0400 Diastolic blood qnzqylcv86 mm[Hg]Martín Brian DO Work Phone: 1(419)[address] [place], [place] 6711103-19-2025 15:30-0400 Heart rate78 /minCorey Brian DO Work Phone: 1(197)[address] [place], [place] 6711103-19-2025 15:30-0400 SaO2% (BldA) [Mass fraction]98 %Martín Brian DO Work Phone: 1(745)[address] [place], [place] 6711103-19-2025 15:30-0400 Systolic blood asnoecoj556 mm[Hg]Martín Brian DO Work Phone: 1(660)[address] [place], [place] 6711103-19-2025 09:37-0400 Body .02 cmCorey Brian DO Work Phone: 1(293)[address] [place], [place] 6711103-19-2025 09:37-0400 Body mass index (BMI) [Ratio]25.1 kg/c3Ekzut Brian DO Work Phone: 1(508)[address] [place], [place] 6711103-19-2025 09:37-0400 Body aeajlf89.41 kgCorey Brian DO Work Phone: 1(493)[address] [place], [place] 6711103-03-2025 15:59-0500 Body mass index (BMI) [Ratio]26 kg/e0Afaxb Brian DO Work Phone: 1(414)[address] [place], [place] 0254003-03-2025 15:59-0500Body rabnlu57.59 kgCorey Brian DO Work Phone: 1(477)[facility] [place], [place] [address]Ptnsrbawzl94-59-5532 15:59-0500Diastolic blood jxsnphco78 mm[Hg]Martín Brian DO Work Phone: 1(853)[facility] [place], [place] [address]Ajqftuxspa44-53-7590 15:59-0500Systolic blood wzcbsvdy471 mm[Hg]Martín Brian DO Work Phone: 1(804)[address] [place], [place] 0254001-22-2025 13:42-0500Body mass index (BMI) [Ratio]26.36 kg/q7Cjlyh Brian DO Work Phone: 1(069)[facility] [place], [place] [address]Szmauedeuf99-72-6052 13:42-0500Body ktbzid84.5 kg Martín Brian DO Work Phone: [phone] ChildrenYpzwxsjxyb33-71-3987 13:42-0500Diastolic blood kjifamxf37 mm[Hg]Martín Brian DO Work Phone: 1([phone])[address] [place], [place] 0254001-22-2025 13:42-0500Systolic blood qirucnkf474 mm[Hg]Martín Brian DO Work Phone: 1(465)[address] [place], [place] 0254012-23-2024 08:36-0500Body mass index (BMI) [Ratio]25.76 kg/n4Pvcds Brian DO Work Phone: 1(604)[address] [place], [place] 0254012-23-2024 08:36-0500Body qdfcoz33.95 kgCorey Brian DO Work Phone: 1(079)[address] [place], [place] 0254012-23-2024 08:36-0500Diastolic blood zggqznji13 mm[Hg]Martín Brian DO Work Phone: 1(356)[address] [place], [place] 0254012-23-2024 08:36-0500Systolic blood outslpoa417 mm[Hg]Martín Brian DO Work Phone: 1(431)[address]11-05-2024 15:18-0500Body mass index (BMI) [Ratio]24.99 kg/k8GsaraMarsha Landa APRN.CNP Work Phone: [facility]11-05-2024 15:18-0500Body baznoy29 kg Marsha Landa TAPE MAKING MACHINE OPERATOR.SUPERVISING NURSE Work Phone: [facility]10-24-2024 11:30-0400Diastolic blood ewgtuvhs13 mm[Hg]PHYSICIAN [facility]10-24-2024 11:30-0400Heart rate68 /minPHYSICIAN [facility] 05-02-2024 11:30-0400Respiratory rate16 /minPHYSICIAN [facility]10-24-2024 11:30-2155BcX1% (BldA) [Mass fraction]97 % PHYSICIAN [facility]10-24-2024 11:30-0400 Systolic blood yfbevcto082 mm[Hg]PHYSICIAN NO [facility]10-24-2024 10:25-0400Body qpyopv620.02 cmPHYSICIAN [facility]10-24-2024 10:25-0400Body ljowqwyqqos22.1 [degF]PHYSICIAN [facility]10-24-2024 10:25-0400Body jciwtx22.23 kgPHYSICIAN [facility]10-23-2024 08:59-0400Body iqvnww641.02 cmPHYSICIAN [facility]10-23-2024 08:59-0400Body mass index (BMI) [Ratio]23.9 kg/p3BWSQTJLVI [facility]10-23-2024 08:59-0400Body vbojdc44.23 kgPHYSICIAN [facility]10-02-2024 13:24-0400Body zcvmub113 cm Kyle Zhu MD Work Phone: [facility]10-02-2024 13:24-0400Body mass index (BMI) [Ratio]23.74 kg/m2Kyle Zhu MD Work Phone: [facility]10-02-2024 13:24-0400Body temperature 98.2 [degF]Kyle Zhu MD Work Phone: [facility]10-02-2024 13:24-0400Body dzuwam04.78 kgKyle Zhu MD Work Phone: [facility]10-02-2024 13:24-0400Diastolic blood kzpqwjto83 mm[Hg]Kyle Zhu MD Work Phone: [facility]10-02-2024 13:24-0400Heart rate77 /min Kyle Zhu MD Work Phone: [facility]10-02-2024 13:24-0385RkN3% (BldA) [Mass fraction]97 %Kyle Zhu MD Work Phone: [facility]10-02-2024 13:24-0400Systolic blood bnuxzuyv146 mm[Hg]Kyle Zhu MD Work Phone: [facility]09-24-2024 10:11-0400Body udjiab791.02 cmAMINA Genevievenaheed Feng Work Phone: [facility]09-24-2024 09:07-0400 Body dwqwdo350.02 [facility]09-24-2024 09:07-0400Body mass index (BMI) [Ratio]25 kg/b6GxtbwwncmDiley [facility] Medical Center09-24-2024 09:07-0400Body wdnpuquqxta98.4 [degF][facility]09-24-2024 09:07-0400Body yvugrq31.01 kgD[facility]09-24-2024 09:07-0400Diastolic blood fqayqtwm65 mm[Hg][facility] 04-02-2024 09:07-0400Systolic blood gkgpvyvu553 mm[Hg][facility]09-13-2024 09:49-0400Body cmMatthew Petznick DO Work Phone: [facility] ChildrenJpcxtjsxwy82-80-1845 09:49-0400Body mass index (BMI) [Ratio]25.01 kg/p0Actqzjs Petznick DO Work Phone: 1(404)[facility] ChildrenUsaphcawhj64-12-4943 09:49-0400Body temperature 97.5 [degF]Blanka Aguirre DO Work Phone: [place] [address]Ewbffzvgcb37-43-5896 09:49-0400Body vryzlx84.05 kgMatthew Petznick DO Work Phone: [place] [address]Qankjgyzzf86-27-5558 09:49-0400Diastolic blood rqyuzxsf95 mm[Hg]Blanka Aguirre DO Work Phone: [place] [address]Eaefubuccu26-07-0856 09:49-0400Heart rate81 /min Blanka Sanchezchelsea DO Work Phone: [place] [address]Bdwerqnolf29-38-5239 09:49-9533ZmB2% (BldA) [Mass fraction]98 %Blanka Aguirre DO Work Phone: [facility] ChildrenEumeojgued45-15-7500 09:49-0400Systolic blood elfgtyqf418 mm[Hg]Blanka Aguirre DO Work Phone: [facility] ChildrenAgoxsuyuqu04-34-7312 08:26-0400Body umphtq907.02 cm[facility]09-12-2024 08:26-0400Body mass index (BMI) [Ratio]24.6 kg/w3KllmyizlsDiley Ridge Medical Center09-12-2024 08:26-0400Body .04 kgD[facility] Center09-12-2024 08:26-0400Diastolic blood rfackphg51 mm[Hg][facility]09-12-2024 08:26-0400 Heart rate73 /[facility]09-12-2024 08:26-0400 Respiratory rate18 /[facility]09-12-2024 08:26-0400 SaO2% (BldA) [Mass fraction]99 %[facility]09-12-2024 08:26-0400Systolic blood cbuwftml199 mm[Hg][facility] 03-05-2024 11:34-0400Body mass index (BMI) [Ratio]25.3 kg/m2Linda DEVINE Work Phone: [facility] ChildrenWkuikvjbvh41-82-2602 11:34-0400Body gmaavp13.77 kgLinda DEVINE Work Phone: [facility] ChildrenCrrfupixja35-21-6108 11:34-0400Diastolic blood megfmtio60 mm[Hg]Linda DEVINE Work Phone: [facility] ChildrenNiewybpyxt11-49-5627 11:34-0400Systolic blood ljpfiavp978 mm[Hg]Linda DEVINE Work Phone: [facility] ChildrenGlonznbdpn28-82-7282 13:28-0400Body .02 cm[facility]08-19-2024 13:28-0400Body mass index (BMI) [Ratio]25.1 kg/b1DnaaynczeDiley Ridge Medical Center08-19-2024 13:28-0400Body mosxjr94.41 kgD[facility] Medical Center08-19-2024 13:28-0400Diastolic blood ryxksbte62 mm[Hg][facility]08-19-2024 13:28-0400 Heart rate80 /[facility]08-19-2024 13:28-2940GcV0% (BldA) [Mass fraction]98 %[facility]08-19-2024 13:28-0400 Systolic blood wghhkovn410 mm[Hg][facility]08-12-2024 15:29-0400Body .02 cmD[facility]08-12-2024 15:29-0400Body mass index (BMI) [Ratio]25.3 kg/j2GgvglsutpDiley Ridge Medical Center08-12-2024 15:29-0400Body nteviv63.86 kgD[facility] Center 02-19-2024 15:29-0400Diastolic blood aohshytw67 mm[Hg][facility]08-12-2024 15:29-0400Heart rate87 /[facility] 02-19-2024 15:29-1574PeF5% (BldA) [Mass fraction]98 %[facility]08-12-2024 15:29-0400Systolic blood bzunlvgd564 mm[Hg][facility]04-04-2024 08:26-0400Body .02 cmD[facility]04-04-2024 08:26-0400Body mass index (BMI) [Ratio]25.1 kg/m2 [facility]04-04-2024 08:26-0400Body kuvplg20.41 kg [facility]04-04-2024 08:26-0400Diastolic blood occvzonc51 mm[Hg][facility]04-04-2024 08:26-0400Heart rate78 /min [facility]04-04-2024 08:26-5950BhJ6% (BldA) [Mass fraction]98 %[facility]04-04-2024 08:26-0400Systolic blood bmqkvejk167 mm[Hg][facility]03-07-2024 09:36-0500 Body .02 cmD[facility] Center03-07-2024 09:36-0500Body mass index (BMI) [Ratio]24.6 kg/u0VeynsibxzDiley Ridge Medical Center03-07-2024 09:36-0500Body ennzum18.04 kgD[facility] Medical Center03-07-2024 09:36-0500Diastolic blood dauwozjk22 mm[Hg][facility] 09-14-2023 09:36-0500Heart rate88 /minDiley Ridge Medical Center 09-14-2023 09:36-8255AnK8% (BldA) [Mass fraction]98 %[facility]03-07-2024 09:36-0500Systolic blood mykwvxvu208 mm[Hg][facility]12-13-2023 07:56-0500Body qespeg263 cmMarsha Landa APRN.CNP Work Phone: [facility]12-13-2023 07:56-0500Body wucecc89.96 kgMarsha Landa APRN.CNP Work Phone: [facility]09-11-2023 08:57-0400Body febhdz138 cm JAM Melgar MD Work Phone: cMagruder Memorial HospitalVizwri19-27-0291 08:57-0400Body rbrhuc81.24 kgJAM Melgar MD Work Phone: [facility] Encounters Encounter DateEncounter TypeCare ProviderFacilityStart: 05-16-2025 End: 11-77-4942ohudagjqtmQjhhfasx Rohrbacher APRN Work Phone: -[facility]: 05-16-2025 End: 52-85-7557Igztpve encounter procedureJemore Feng APRN [facility] Work Phone: Start: 05-16-2025 End: 64-64-6748Xcaulmkprjecd examination doneGenevieve Feng APRN [facility] Hospitaltart: 05-15-2025 End: 44-39-7137Wdazhg flowsheetNatalie A Felter TAPE MAKING MACHINE OPERATOR-SUPERVISING NURSE Work Phone: noMS [facility] DermatologyStart: 05-15-2025 End: 28-49-9824Swblsj flowsheetNatalie A Felter TAPE MAKING MACHINE OPERATOR-SUPERVISING NURSE Work Phone: noMS Perez DermatologyStart: 05-15-2025 End: 95-57-7082Eaykfd outpatient visit 25 minutesNatalie A Chiquitaer TAPE MAKING MACHINE OPERATOR-SUPERVISING NURSE Work Phone: no [place] DermatologyComment on above:Melanocytic nevus of lower extremity, unspecified laterality (Primary Dx); Melanocytic nevus of trunk; Lentigines; Seborrheic keratosis; Other rosacea; Idiopathic guttate hypomelanosis; Rhytides; Seborrheic keratosis, inflamed; Inflamed seborrheic keratosisStart: 05-15-2025 End: 48-53-3770vyvipqmhkhFDEKKTF A FELTERNot AvailableStart: 04-03-2025 End: 15-53-8442evdxrunbmmCYLITOGG EBERLYNot AvailableStart: 04-03-2025 End: 09-31-3235Ltjsbie encounter procedureTeressa Tello NP Work Phone: [facility]oms [place] OBGYNComment on above:Postmenopausal HRT (hormone replacement therapy) (Primary Dx); Anxiety, generalizedStart: 02-28-2025 End: 10-40-9364Zewjyorml Result EncounterTeressa Tello NP Work Phone: noms External Department UnsolicitedStart: 02-28-2025 End: 60-95-7276Mgjgzaoir Result EncounterTeressa Tello NP Work Phone: noms External Department UnsolicitedStart: 02-28-2025 Non-patient / Non-visitTeressa Tello APRN, CNP-[facility] Work Phone: Start: 02-20-2025 End: 58-60-5057Qflskt flowsVikash Tello CUSTOMER CARE REPRESENTATIVE Work Phone: [facility] [place] OBGYNStart: 02-20-2025 End: 80-83-7659Vxprsd flowsheetTeressa Tello CUSTOMER CARE REPRESENTATIVE Work Phone: [facility] OBGYNStart: 02-20-2025 End: 41-10-9227dmjgouxkrwQMUMVBIS EBERLYNot AvailableStart: 02-20-2025 End: 79-30-1497Tfpgdz outpatient visit 15 minutesTeressa Tello CUSTOMER CARE REPRESENTATIVE Work Phone: [facility] OBGYNComment on above:Hormone disorder (Primary Dx); Postmenopausal HRT (hormone replacement therapy)Start: 49-68-1282Zzsdjanocknhq examination Sd Feng APRN Work Phone: [facility]: 09-25-2024 End: 14-76-1309heanqrnkqdFznyk Brian DO Work Phone: [facility] Work Phone: Start: 09-25-2024 End: 79-87-2222Isvnviw encounter procedureCorey Brian DO Work Phone: [facility] Work Phone: Start: 09-25-2024 End: 23-34-8241ekeauhqwgzEtwzm Brian DO Work Phone: [facility] Work Phone: Start: 09-25-2024 End: 32-65-1556Zehkpnk encounter procedureCorey Brian DO Work Phone: [facility] Work Phone: Start: 09-09-2024 End: 17-62-4653Dgviry follow up visit related to original pxCorey Brian DO Work Phone: noms BCP OBComment on above:Postoperative follow-up Start: 09-09-2024 End: 75-42-8642xwddpykivuDZEXS FAZIONot AvailableStart: 09-09-2024 End: 89-38-8084Nakoqw flowsheetCorey Brian DO Work Phone: [facility]CP OBStart: 09-09-2024 End: 77-77-1737Alycmo flowsheetCorey Brian DO Work Phone: [facility] BCP OBStart: 08-30-2024 End: 47-14-0452Slzjzgxoe Result EncounterCorey Brian DO Work Phone: [facility] External Department UnsolicitedStart: 08-30-2024 End: 30-39-5715Cqzimnqti Result EncounterCorey Brian DO Work Phone: noMS External Department UnsolicitedStart: 08-30-2024 End: 76-00-6197irytdtwpoeKspba FazioFiUniversity [facility]als [facility]tr Work Phone: Start: 08-30-2024 End: 01-36-9269Kgyhossr ReferredCorey Brian DO Work Phone: [facility]-LAB Path Spec [place] HospStart: 22-27-1026Kxw-patient / Non-visitCorey Brian DO Work Phone: [facility]Sk[facility] Work Phone: Start: 99-14-6248Rvu-patient / Non-visitCorey Brian DO Work Phone: [facility] Work Phone: Start: 31-24-0838Gcm-patient / Non-visitCorey Brian DO Work Phone: [facility] Work Phone: Start: 08-15-2024 End: 50-12-9699Qmxamoayo Result EncounterCorey Brian DO Work Phone: noMS External Department UnsolicitedStart: 08-15-2024 End: 86-99-3355Cloixpomh Result EncounterCorey Brian DO Work Phone: [facility] External Department UnsolicitedStart: 08-06-2024 End: 51-83-1201rrmyynixvyFwznhgu D Gundlach PT Work Phone: noms SWS PTComment on above:Thoracic spine pain (Primary Dx); Thoracic spondylosisStart: 08-06-2024 End: 63-51-0849Lsnksv flowsheetMatthew D Gundlach PT Work Phone: noms SWS PTStart: 08-06-2024 End: 32-70-3100Vbdnmp flowsheetMatthew D Gundlach PT Work Phone: noms SWS PTStart: 08-02-2024 End: 30-48-3154Gvkixt flowsheetBrittany Wengerd PTANOMS SWS PTStart: 08-02-2024 End: 62-57-1018Uomada flowsheetBrittany Wengerd PTANOMS SWS PTStart: 08-02-2024 End: 56-79-5956aetcdyeevaVrnpffnh Wengerd PTANOMS SWS PTComment on above: Thoracic spine pain (Primary Dx); Thoracic spondylosisStart: 08-01-2024 End: 85-44-9088qzfozrmbokTQG RAMEYNot AvailableStart: 07-31-2024 End: 57-91-3575Ylsqhe outpatient visit 15 minutesCorey Brian DO Work Phone: N[facility] BCP OBComment on above:Pre-op examination; Pelvic pain in female; Complex cyst of left ovaryStart: 07-31-2024 End: 05-16-2697Qjunosikxzrup examination doneCorey Brian DO Work Phone: [facility] HealthcareStart: 07-31-2024 End: 33-64-8510Indyqr flowsheetCorey Brian DO Work Phone: [facility] BCP OBStart: 07-31-2024 End: 53-16-9446Ajztnq flowsheetCorey Brian DO Work Phone: [facility] BCP OBStart: 07-31-2024 End: 75-58-0521tyhahqniktGFAJT FAZIONot AvailableStart: 07-25-2024 End: 08-80-0134apzdqfidkoGtqsjgby Wengerd PTANOMS SWS PTComment on above: Thoracic spine pain (Primary Dx); Thoracic spondylosisStart: 07-25-2024 End: 97-06-5850Kutzcu flowsheetBrittany Wengerd PTANOMS SWS PTStart: 07-25-2024 End: 59-98-3800Mlhmrw flowsheetBrittany Wengerd PTANOMS SWS PTStart: 07-23-2024 End: 29-36-3542gddasukwuzNLODVWY D GUNDLACHNot AvailableStart: 07-23-2024 End: 38-85-0299Ylzlnm flowsheetMatthew D Gundlach PT Work Phone: noMS SWS PTStart: 07-23-2024 End: 64-08-6128Uklazq flowsheetMatthew D Gundlach PT Work Phone: noMS SWS PTStart: 07-18-2024 End: 99-81-4477xkgpyavoveAfemena D Gundlach PT Work Phone: noMS SWS PTComment on above:Thoracic spine pain (Primary Dx); Thoracic spondylosisStart: 07-18-2024 End: 46-25-6603Rrmxdf flowsheetMatthew D Gundlach PT Work Phone: noMS SWS PTStart: 07-18-2024 End: 27-19-3661Tcqijf flowsheetMatthew D Gundlach PT Work Phone: noMS SWS PTStart: 07-11-2024 End: 68-00-3811yshvpfjcycQuslhek D Gundlach PT Work Phone: noMS SWS PTComment on above:Thoracic spine pain (Primary Dx); Thoracic spondylosisStart: 07-11-2024 End: 56-87-4405Hlkdnn flowsheetMatthew D Gundlach PT Work Phone: [facility] PTStart: 07-11-2024 End: 24-79-5787Nwqipn flowsheetMatthew D Gundlach PT Work Phone: n[facility] PTStart: 07-08-2024 End: 36-40-4551Tpvxqj flowsheetMatthew D Gundlach PT Work Phone: noms SWS PTStart: 07-08-2024 End: 91-48-4112Kfppsc flowsheetMatthew D Gundlach PT Work Phone: noms SWS PTStart: 07-08-2024 End: 85-73-2119wxqsaudapeWwzunca D Gundlach PT Work Phone: noms [facility] PTComment on above:Thoracic spine pain (Primary Dx); Thoracic spondylosisStart: 07-01-2024 End: 40-20-1243Jnrizm flowsheetMatthew D Gundlach PT Work Phone: noms [facility] PTStart: 07-01-2024 End: 80-83-0057Kuqfkw flowsheetMatthew D Gundlach PT Work Phone: n[facility] PTStart: 07-01-2024 End: 07-37-5388Rmlgxm outpatient visit 15 minutesCorey Brian DO Work Phone: noms [facility] OBComment on above:Complex ovarian cyst; Pelvic pain in female; Encounter to discuss test resultsStart: 07-01-2024 End: 07-59-7546beusnckltzSdsgkpc D Gundlach PT Work Phone: noms [facility] PTComment on above:Thoracic spine pain (Primary Dx); Thoracic spondylosisStart: 06-27-2024 End: 94-52-1801aiqtrlcwcsVNHPHPB D GUNDLACHNot AvailableStart: 06-27-2024 End: 13-95-6965aqcjujtrpsLswszff D Gundlach PT Work Phone: noms [facility] PTComment on above:Thoracic spine pain (Primary Dx); Thoracic spondylosisStart: 06-27-2024 End: 59-49-3923Xiypre flowsheetBrittany Wengerd PTANOMS SWS PTStart: 06-27-2024 End: 05-49-8325Yghtzl flowsheetBrittany Wengerd PTANOMS [facility] PTStart: 06-20-2024 End: 10-10-9004rtpqvhzfeiCsckbur D Gundlach PT Work Phone: [facility] PTComment on above:Thoracic spine pain (Primary Dx); Thoracic spondylosisStart: 06-20-2024 End: 23-53-8053Kyripx flowsheetMatthew D Gundlach PT Work Phone: [facility] PTStart: 06-20-2024 End: 19-81-0045Fgijza flowsheetMatthew D Gundlach PT Work Phone: [facility] PTStart: 06-18-2024 End: 33-59-7411rdbpgtbacgYilddlg D Gundlach PT Work Phone: [facility] PTComment on above:Thoracic spine pain (Primary Dx); Thoracic spondylosisStart: 06-18-2024 End: 65-82-3837Czlttj flowsheetMatthew D Gundlach PT Work Phone: [facility] PTStart: 06-18-2024 End: 34-23-5200Pdyswx flowsheetMatthew D Gundlach PT Work Phone: [facility] PTStart: 06-12-2024 End: 38-62-7725Qgchfy flowsheetMatthew D Gundlach PT Work Phone: [facility] PTStart: 06-12-2024 End: 53-07-5965Nuuflh flowsheetMatthew D Gundlach PT Work Phone: [facility] PTStart: 06-12-2024 End: 85-12-7660Nwayjdimx Result EncounterCorey Brian DO Work Phone: [facility] External Department UnsolicitedStart: 06-12-2024 Non-patient / Non-visitCorey Brian DO Work Phone: [facility] Work Phone: Start: 06-12-2024 End: 94-62-1337tpxzfxnrkcZlexyhb D Gundlach PT Work Phone: [facility] PTComment on above:Thoracic spine pain (Primary Dx); Thoracic spondylosisStart: 06-10-2024 End: 48-74-3062Wkdltl flowsheetMatthew D Gundlach PT Work Phone: [facility] PTStart: 06-10-2024 End: 70-35-3273Bmlcki flowsheetMatthew D Gundlach PT Work Phone: noms SWS PTStart: 06-10-2024 End: 62-25-0204kxhzqodpgpGsomglq D Gundlach PT Work Phone: noms [facility] PTComment on above:Thoracic spine pain (Primary Dx); Thoracic spondylosisStart: 06-05-2024 End: 09-21-6584gkvbbvixjoQafiqrn D Gundlach PT Work Phone: noms [facility] PTComment on above:Thoracic spine pain (Primary Dx); Thoracic spondylosisStart: 06-05-2024 End: 12-33-3712Bffxdv flowsheetMatthew D Gundlach PT Work Phone: noms SWS PTStart: 06-05-2024 End: 22-29-9058Veeqjk flowsheetMatthew D Gundlach PT Work Phone: noms SWS PTStart: 06-03-2024 End: 45-80-9878Xzpqsc flowsheetMatthew D Gundlach PT Work Phone: noms SWS PTStart: 06-03-2024 End: 42-35-7241Twamar flowsheetMatthew D Gundlach PT Work Phone: NOKS [facility] PTStart: 06-03-2024 End: 57-19-6983gaclwjmodkAyhuuac D Gundlach PT Work Phone: NOXL [facility] PTComment on above:Thoracic spine pain (Primary Dx); Thoracic spondylosisStart: 05-31-2024 End: 27-80-8493Qywqwd flowsheetMatthew D Gundlach PT Work Phone: NOHS [facility] PTStart: 05-31-2024 End: 75-90-3353Zyhotb flowsheetMatthew D Gundlach PT Work Phone: NORZ [facility] PTStart: 05-31-2024 End: 74-27-2170utybrwhnkhVauklfj D Gundlach PT Work Phone: NOZI [facility] PTComment on above:Thoracic spine pain (Primary Dx); Thoracic spondylosisStart: 05-29-2024 End: 45-03-3167Awiiuo flowsheetMatthew D Gundlach PT Work Phone: NOCA [facility] PTStart: 05-29-2024 End: 92-16-3367Ekvbwy flowsheetMatthew D Gundlach PT Work Phone: NOCP [facility] PTStart: 05-29-2024 End: 85-54-8010bxpcuyyqfkYrmttzb D Gundlach PT Work Phone: NOYN [facility] PTComment on above:Thoracic spine pain (Primary Dx); Thoracic spondylosisStart: 05-24-2024 End: 88-41-5506Cdhxcn flowsheetMatthew D Gundlach PT Work Phone: NOOU [facility] PTStart: 05-24-2024 End: 91-81-6129Dtowyv flowsheetMatthew D Gundlach PT Work Phone: NODD [facility] PTStart: 05-24-2024 End: 09-83-8801eatuvfzqakHmcznxt D Gundlach PT Work Phone: noms [facility] PTComment on above:Thoracic spine pain (Primary Dx); Thoracic spondylosisStart: 05-22-2024 End: 82-27-2704Tqjvmn flowsheetMatthew D Gundlach PT Work Phone: NOKT SWS PTStart: 05-22-2024 End: 22-89-2497Ivckox flowsheetMatthew D Gundlach PT Work Phone: NOGR SWS PTStart: 05-22-2024 End: 76-98-0771jijcyosdwxMmowrsw D Gundlach PT Work Phone: noms SWS PTComment on above:Thoracic spine pain (Primary Dx); Thoracic spondylosisStart: 05-21-2024 End: 04-67-5015Cxwansnhq Result EncounterCorey Brian DO Work Phone: noms External Department UnsolicitedStart: 05-21-2024 End: 82-69-3829Aojmqmbbx Result EncounterCorey Brian DO Work Phone: noms External Department UnsolicitedStart: 05-17-2024 End: 23-94-0253Puxizw flowsheetMatthew D Gundlach PT Work Phone: noms SWS PTStart: 05-17-2024 End: 09-37-6108Unngka flowsheetMatthew D Gundlach PT Work Phone: NOAJ SWS PTStart: 05-17-2024 End: 98-87-3962snfpdnghvrGwmpnvo D Gundlach PT Work Phone: noms SWS PTComment on above:Thoracic spine pain (Primary Dx); Thoracic spondylosisStart: 05-14-2024 End: 78-38-9747kongajpyjyESDQQ SKINNERFacility:[facility] Hospitaltart: 05-14-2024 End: 88-82-7701Aqtorlf encounter procedureMegan Landa TAPE MAKING MACHINE OPERATOR.SUPERVISING NURSE Work Phone: spine InstituteComment on above:Thoracic spondylosis (Primary Dx); 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; Epigastric painStart: 05-13-2024 End: 57-27-2296Highgm flowsheetLinda DEVINE Work Phone: noms [facility] OBStart: 05-13-2024 End: 09-29-6720Woivnq flowsheetLinda DEVINE Work Phone: noms [facility] OBStart: 05-13-2024 End: 91-86-8819Plftbctje Result EncounterLinda DEVINE Work Phone: noms External Department UnsolicitedStart: 05-13-2024 End: 99-72-6256Mmlqfzxks encounterMeapolinar Landa APRN.SUPERVISING NURSE Work Phone: spine InstituteComment on above:Patient QuestionStart: 05-13-2024 End: 36-51-8914Qtzstpl encounter procedureLinda DEVINE Work Phone: noMS HealthcareStart: 05-13-2024 End: 47-17-2693Vblooski preventive med est patient 40-64yrsAmy Gerardo DEVINE Work Phone: noms [facility] OBComment on above:Well woman exam with routine gynecological exam; Other screening mammogram; Surgical menopauseStart: 93-98-6147Wrg-patient / Non-visitPHYSICIAN NO [facility] Work Phone: Start: 05-02-2024 End: 59-01-7749Yowalbkjq to same day surgery centerPHYSICIAN NO [facility] Work Phone: Start: 05-02-2024 End: 95-08-7451gpdiqlhvnhJYFGALCWH NO [facility] Work Phone: Start: 05-02-2024 End: 74-41-1817Wxwjbin encounter procedurePHYSICIAN NO [facility] [address] Work Phone: Start: 05-02-2024 End: 00-49-5161shtdngiznaLUAQGTDKH NO [facility] Work Phone: Start: 05-01-2024 End: 89-62-9702ytgqrrwsbcADLIZLDEU NO [facility] Work Phone: Start: 05-01-2024 End: 21-00-6971Jdnnwzo encounter procedurePHYSICIAN NO [facility] Gastroenterology Work Phone: Start: 04-25-2024 End: 46-71-5573vbfoqhkubdKztx LashnerFacility:[facility] Hospitaltart: 04-25-2024 End: 77-78-1181Fizwyrgaqz hospital visit by physicianCt [facility]Radiology [facility] ScanComment on above:Abdominal pain, unspecified abdominal location [R10.9] Start: 04-10-2024 End: 20-47-5718Aqfpzrg encounter procedureKyle Zhu MD Work Phone: GastroenterologyComment on above:Abdominal pain, unspecified abdominal location (Primary Dx)Start: 04-10-2024 End: 93-76-1304tlmeymbqubEfqp LashnerFacility:[facility] Hospitaltart: 04-08-2024 End: 75-25-3506kmgzhgisfnTRLIONZ [facility] Start: 04-02-2024 End: 60-29-5258Mrvmbnz encounter procedureAt[facility] Health [facility] Work Phone: Start: 04-02-2024 End: 33-76-9517kxkburfrkePhisjvkm [facility] Work Phone: Start: 04-02-2024 End: 98-95-3570Kuouwypx ReferredAUGUSTON Genevieve Feng Work Phone: [facility] [place] Work Phone: Start: 03-22-2024 End: 00-24-6474Puzars outpatient new 45 minutesMatthew C Ary DO Work Phone: noms SWS FM 230Comment on above:Generalized abdominal pain (Primary Dx); Gastroesophageal reflux disease, unspecified whether esophagitis presentStart: 03-21-2024 End: 21-52-1866hohvzrxoupKwodzkvmcSelect Medical Specialty [facility] Work Phone: Start: 03-21-2024 End: 72-28-9612Zdqkjmv encounter procedureAtrium Health Southpark Physician GroupMartin [facility] Work Phone: Start: 03-18-2024 End: 06-06-0126eoxqwehulwOCWDFICRegency Hospital [facility] Start: 03-18-2024 End: 27-05-1616mfwmgolhkeOYFDSAJRegency Hospital [facility] Start: 58-46-3345Ljh-patient / Non-visitAtrium Health Southpark Physician GroupSkag[facility] Work Phone: Start: 03-05-2024 End: 17-18-9205Qwpnev Elva DEVINE Work Phone: noms BCP OBStart: 03-05-2024 End: 19-98-2615Jbhgxb Elva DEVINE Work Phone: noms BCP OBStart: 03-05-2024 End: 16-77-8818Ryeqbp outpatient visit 15 minutesLinda DEVINE Work Phone: noms BCP OBComment on above:Encounter to discuss test results; Pelvic pain in femaleStart: 82-33-2738Ker-patient / Non-visitAtrium Health Southpark Physician GroupSelect [facility] Work Phone: Start: 03-04-2024 End: 37-56-5520hcsmavpapeOHXVBGYRegency Hospital [facility] Start: 02-26-2024 End: 99-70-6294hifdehdvrkUbhikbuftSelect Medical Specialty Hospital [facility] Work Phone: Start: 02-26-2024 End: 89-83-6493Eknutsr encounter procedureAtrium Health Southpark Physician [facility] Work Phone: Start: 02-19-2024 End: 15-33-4363itciczofpwUtafxgmjwKindred Hospital [facility] Work Phone: Start: 02-19-2024 End: 29-22-3982Gmkrzkr encounter procedureAtrium Health Southpark Physician [facility] Work Phone: Start: 13-28-3918Pzhxsxu encounter statusSamaritan Hospitaltart: 10-12-2023 End: 71-57-4654ixwzowusjeQrdichdhpKindred Hospital Lima Work Phone: Start: 10-12-2023 End: 99-02-7342Kdkyflkzn for general adult medical examination without abnormal findingsSamaritan Hospitaltart: 10-12-2023 End: 86-93-9651Puswzsk encounter procedureAtrium Health Southpark Physician [facility] Work Phone: Start: 09-14-2023 End: 00-67-5172Pdgtkay encounter procedureAtrium Health Southpark Physician [facility] Work Phone: Start: 06-21-2023 End: 16-30-4250bnoquowoubTAAHL SKINNERFacility:[facility] Hospitaltart: 06-21-2023 End: 20-56-7181Psgdarl encounter procedureMeapolinar Landa TAPE MAKING MACHINE OPERATOR.SUPERVISING NURSE Work Phone: spine InstituteComment on above:Right leg pain (Primary Dx); Numbness and tingling of right lower extremity; Piriformis syndrome, rightStart: 03-23-2023 End: 52-47-1616easaqqacuoAR Agustin Mortensen Work Phone: [facility] Work Phone: Start: 03-23-2023 End: 00-51-1122Xibuqtd encounter procedureMD Agustin Mortensen Work Phone: [facility]-MRI [address] Work Phone: Start: 03-20-2023 End: 67-55-7344Hwwpqeu encounter procedureJ Chava Melgar MD Work Phone: plastic SurgeryComment on above:Encounter for cosmetic surgery (Primary Dx)Start: 10-20-2022 End: 87-86-6335nzyrzroahqCE AGUSTIN MORTENSENFacility:P4Ixpeu: 10-11-2022 End: 44-24-3091plrgaouslbSRVBH D [facility] OCONOMOWOCFacility:H1 Procedures DateProcedureProcedure DetailPerforming ClinicianStart: 05-15-2025 End: 50-58-4657SPEAFVFDBSX SKIN LESIONNatalie A Felter TAPE MAKING MACHINE OPERATOR-SUPERVISING NURSE Work Phone: Start: 66-99-5846XRUFWS TESTOSTERONE FREE/TOT EQUILIB Teressa Tello CUSTOMER CARE REPRESENTATIVE Work Phone: Start: 71-39-7061OIW CBC WITH AUTO DIFFCorey Brian DO Work Phone: Start: 88-71-9255YI CHEST 2VCorey Brian DO Work Phone: Start: 59-26-6930NEU 12-LEADCorey Brian DO Work Phone: Start: 42-61-7758HMO CBC WITH AUTO DIFFCorey Brian DO Work Phone: Start: 70-56-7031LnuescfspzmUgfvmktk Wengerd PTAStart: 33-00-4858VLC LDHCorey Brian DO Work Phone: Start: 29-16-3714Dotbuuiqfsqqrfpw antigen ceaCorey Brian DO Work Phone: comment on above:Nonsmokers <3.9 Smokers <5.6Roche Diagnostics Electrochemiluminescence Immunoassay(ECLIA)Values obtained with different assay methods or kitscannot be used interchangeably. Results cannot beinterpreted as absolute evidence of the presence orabsence of malignant disease.Performed at: [address] [id number] Director: Kiko Mendoza PhD, Phone: [phone]: 05-21-2024 US PELVIS W/ TRANSVAGINALCorey Brian DO Work Phone: Start: 06-30-2322FVS,APTIMA HPV,AGE GDLNLinda DEVINE Work Phone: Start: 41-14-3008HdvkobmmzutbtqelszuxqiydgxTYFCQMLYF NO FAMILYStart: 41-67-0134OA thoracic spine wo conPHYSICIAN NO FAMILYStart: 06-49-5260HX pre/post mri xrayPHYSICIAN NO FAMILYStart: 08-49-3773Ey abdomen & pelvis w/contrast Daniella Zhu MD Work Phone: Start: 79-31-2987Hifeohrb identified in Urine by CulturePHYSICIAN NO FAMILYStart: 43-39-2552WzzhhqyxpvhRkl Ramey PA Work Phone: Start: 50-92-9569EN pre/post mri xrayMD Agustin Mortensen Work Phone: Start: 66-65-0794CA lumbar spine wo conMD Agustin Mortensen Work Phone: Plan of Treatment DateCare ActivityDetailAuthorStart: 97-82-2992Vuzelmume for malignant neoplasm of cervixNOMS HealthcareStart: 87-75-6243Yswruqaz ScreeningDiabetes Screening [facility]: 05-18-2026 End: 59-33-3121Yxrcmaj encounter zaluvnieb67/09/2026 4:00 PM EST Office Visit [facility] [place] [facility] [address] [place] [address] Bethany Chang, TAPE MAKING MACHINE OPERATOR-SUPERVISING NURSE [address] [place] [address] NOMBj Perez DermatologyStart: 86-37-0078Buffmwxu ScreeningDiabetes ScreeningMercy Hospitaltart: 08-01-2025 Screening for malignant neoplasm of breastMammogramNOMS HealthcareStart: 05-15-2025 End: 20-22-6759Uygwlks encounter procedureNOMS BCP OBComment on above:Arrived Start: 04-03-2025 End: 05-65-2815Vkhioxt encounter mnmqlhtwa37/25/2025 9:00 AM EDT Office Visit [facility] [address] [place] [phone] Teressa Tello, CUSTOMER CARE REPRESENTATIVE [address] [place] [address] NOMS N[facility]n OBGYNStart: 82-21-2871CKGDH-19 Vaccine ( season)COVID-19 Vaccine ( season)NOMS HealthcareStart: 76-34-1043Fbgedhcpn vaccinationInfluenza Vaccine (#1)NOMS HealthcareStart: 10-24-2024 End: 86-95-8612Vziogbv encounter /17/2025 8:40 AM EDT Office Visit [facility] [address] [place] [address] Bethany Chang, TAPE MAKING MACHINE OPERATOR-SUPERVISING NURSE [address] [place] [address] NOMS SWS DERMStart: 09-09-2024 End: 54-26-9121Wlyhocx encounter iwspzhqpf75/03/2025 3:40 PM EST Office Visit [facility] [address] [place] [phone] Martín Torres DO [address] [place], [place] [id number] ArrivedNOMS BCP OBComment on above:ArrivedStart: 08-06-2024 End: 63-81-1303tpzprwgkovGYZH SWS PTComment on above:ArrivedStart: 08-02-2024 End: 96-70-5984dkouzlfgdc51/24/2025 7:30 AM EST Treatment [facility] PT [address] [place] [address] Sweta Alaniz, UNDERGROUND ELECTRICIAN ArrivedNOMS SWS PTComment on above:ArrivedStart: 08-01-2024 End: 02-62-6283cyyhrqkvbr85/23/2025 3:00 PM EST Treatment [facility] PT [address] [place] [address] Blanka Mercer, PT [address] [place] [address] NOMS SWS PTStart: 08-01-2024 End: 33-87-0046Ujcdpoqgyjgw / ancillary services /23/2025 8:30 AM EST Ancillary Procedure [facility] [place] [address] [place] [address] WQCA IMAGING SANDUSKYStart: 07-31-2024 End: 33-93-3566Nqxylnj encounter procedureNOMS BCP OBComment on above:Arrived Start: 07-31-2024 End: 33-92-4493Ylszcjidaozb / ancillary services qqzzqmullr26/22/2025 1:00 PM EST Ancillary Procedure [facility] OB [address] [place], [place] [address] [address] OLAE BCP OBStart: 07-30-2024 End: 13-82-7758kjuafibahg50/21/2025 4:00 PM EST Treatment [facility] PT [address] [place] [address] Blanka Mercer, PT [address] [place] [address] NOMS SWS PTStart: 07-25-2024 End: 44-05-0304rxvksdylugVYSI SWS PTComment on above:ArrivedStart: 07-23-2024 End: 73-52-1515yrwmfjxdndTJZH SWS PTComment on above:ArrivedStart: 07-18-2024 End: 71-66-8786wqybqclwxrUBVS SWS PTComment on above:ArrivedStart: 07-16-2024 End: 44-59-4182axsanfbxps23/07/2025 4:30 PM EST Treatment [facility] PT [address] [place] [address] Blanka Mercer, PT [address] [place] [address] NOMS SWS PTStart: 07-11-2024 End: 68-90-1704gyvihzvflsQUZS SWS PTComment on above:ArrivedStart: 07-08-2024 End: 27-46-9361bzpahkghdvNZIA SWS PTComment on above:ArrivedStart: 07-01-2024 End: 07-92-0880LW for pregnancyUS PELVIS-TRANSVAG IF INDICATED Imaging Routine Complex ovarian cyst Pelvic pain in female Expected: 07/01/2024 (Approximate), Expires: 07/01/2025[facility] Work Phone: comment on above:Expected: 07/01/2024 (Approximate), Expires: 07/01/2025Start: 07-01-2024 End: 42-75-7567Jmtlnzq encounter zlypivggz94/23/2024 8:30 AM EST Office Visit [facility] [address] [place] [address] Martín Torres, DO [address] [place] [address] NOMS BCP OBStart: 07-01-2024 End: 39-66-7039eygiehwzylZYPX SWS PTComment on above:ArrivedStart: 06-27-2024 End: 02-70-4984nyvvvfmgyaNVKH SWS PTComment on above:ArrivedStart: 06-25-2024 End: 93-16-5776blclvucakh61/17/2024 5:00 PM EST Treatment [facility] PT [address] [place] [address] Blanka Mercer, PT [address] [place] [address] NOMS SWS PTStart: 53-25-3457Hcuuxbfpb for malignant neoplasm of colon [facility]: 06-20-2024 End: 22-27-4817lmsqcxrlvrIPDK SWS PTComment on above:ArrivedStart: 06-18-2024 End: 86-63-2288bhmcjckekg77/10/2024 5:00 PM EST Treatment [facility] PT [address] [place] [address] Blanka Mercer, PT [address] [place] [address] NOMS SWS PTStart: 10-78-9259Kzlysobpp for malignant neoplasm of breast [facility]: 06-12-2024 End: 29-26-8063eqdnbvunqtHUWZ SWS PTComment on above:ArrivedStart: 06-10-2024 End: 53-87-1477ctpugnqbxtTZIH SWS PTComment on above:ArrivedStart: 06-05-2024 End: 91-87-6322apfpadusreTHGB SWS PTComment on above:ArrivedStart: 06-03-2024 End: 19-33-5294ylevdfuefbQAOQ SWS PTComment on above:ArrivedStart: 06-03-2024 End: 97-02-7585Mnknucz encounter srpzpxkas87/25/2024 8:00 AM EST Office Visit [facility] [address] [place] [address] [place] [address] Marsha Landa, TAPE MAKING MACHINE OPERATOR.SUPERVISING NURSE [address] [place] [address] back painSpine InstituteComment on above:back pain Start: 05-31-2024 End: 03-31-4621ipfmhfeycyKCKD SWS PTComment on above:ArrivedStart: 05-29-2024 End: 01-36-3657gvdhloasqxLBLZ SWS PTComment on above:ArrivedStart: 05-24-2024 End: 49-75-2025urccfdojrt76/15/2024 7:00 AM EST Treatment [facility] PT [address] [place] [address] Blanka Mercer, PT [address] [place] [address] NOMS SWS PTStart: 05-22-2024 End: 62-36-0934tzxhxrawzo83/13/2024 7:30 AM EST Treatment [facility] PT [address] [place] [address] Blanka Mercer, PT [address] [place] [address] [facility] PTStart: 05-20-2024 End: 14-35-4980Dvntkepebzor / ancillary services sgsfqzsroh79/11/2024 11:00 AM EST Ancillary Procedure [facility] [address] [place] [address] [place] [address] NOMS BCP OBStart: 05-17-2024 End: 51-86-2422roorxnhyzd50/08/2024 12:30 PM EST Evaluation [facility] PT [address] [place] [address] Blanka Mercer, PT [address] [place] [address] ArrivedNOCOMMUNITY H[facility] PTComment on above:ArrivedStart: 05-14-2024 End: 96-18-3021Ctlsqtu encounter ygfwlinrb65/05/2024 3:30 PM EST Office Visit Spine [address] [place] [address] Marsha Landa, TAPE MAKING MACHINE OPERATOR.SUPERVISING NURSE [address] [place] [address] tightness in my upper abdomen and under my ribsSpine InstituteComment on above:tightness in my upper abdomen and under my ribsStart: 05-13-2024 End: 93-09-8290MI Breast - bilateral ScreeningBilateral screening mammogram Imaging Routine Well woman exam with routine gynecological exam Otherscreening mammogram Expected: 05/13/2024, Expires: 07/13/2025[facility] Work Phone: comment on above:Expected: 05/13/2024, Expires: 07/13/2025Start: 05-13-2024 End: 29-90-2162Yfahaqp encounter procedureNOMS BCP OBComment on above:Arrived Start: 51-90-8245IguvsaqbfSamaritan Hospitaltart: 00-60-8972LS Thoracic spineSamaritan Hospitaltart: 88-93-2725AU thoracic spine wo con MR thoracic spine wo [facility]: 30-88-1474CY pre/post mri xrayXR pre/post mri xraySamaritan Hospitaltart: 05-02-2024 End: 02-36-6932RlgkgjlqeSamaritan Hospitaltart: 04-25-2024 End: 44-13-7110Qsptqlr encounter procedureRadiology Ct ScanComment on above:CT ENTEROGRAPHY W IVCONStart: 04-16-2024 End: 39-66-1740Moxettsnpdaz / ancillary services /08/2024 8:30 AM EDT Ancillary Procedure [facility] [address] [place] [address] [place] [phone] NOMS BCP OBStart: 04-10-2024 End: 89-70-450697395928-bujgjywqbxwhbi D3 [Mass/volume] in Serum or PlasmaOhiohealth Grady Memorial HospitalComment on above:Expected: 04/10/2024, Expires: 07/10/2024Start: 04-10-2024 End: 07-10-2024 reactive protein [Mass/volume] in Serum or PlasmaGrand Meadow ClinicComment on above:Expected: 04/10/2024, Expires: 07/10/2024Start: 04-10-2024 End: 35-60-4516Bjvwphoypacgn metabolic 2000 panel - Serum or PlasmaTuscarawas Hospital Work Phone: Comment on above:Expected: 04/10/2024, Expires: 07/10/2024Start: 62-95-6418Peeivkgs identified in Urine by CultureSamaritan Hospitaltart: 23-85-2527Tosff-19 Vaccine ( season) Covid-19 Vaccine ()[facility]: 05-55-3790Ngsasdvzs vaccinationInfluenza Vaccine (#1)[facility]: 03-05-2024 End: 13-27-7107PI for pregnancyUS PELVIS-TRANSVAG IF INDICATED Imaging Routine Pelvic pain in female Expected: 03/05/2024 (Approximate), Expires: 03/05/2025 [facility] Work Phone: comment on above:Expected: 03/05/2024 (Approximate), Expires: 03/05/2025Start: 56-56-2433Aklgurkr Vaccine (2 of 2)Shingrix Vaccine (2 of 2)[facility]: 68-18-9615Gyrrmfmdt vaccinationOhiohealth Grady Memorial Hospital Start: 19-17-6446EISYGHOZGL ASSESSMENTDEPRESSION ASSESSMENTOhiohealth Grady Memorial Hospital Start: 07-39-4389UFYVGLEH VACCINE (1 of 2)SHINGRIX VACCINE (1 of 2)[facility]: 82-34-9400MBPHAXETI (FIT-DNA)COLOGUARD (FIT-DNA)[facility] Start: 56-00-8852ZgqomfxtfthYUWIFDGJPVUHybuxeorr ClinicStart: 12-07-2015 COLORECTAL CANCER SCREENINGCOLORECTAL CANCER SCREENINGMercy Hospitaltart: 58-24-6521LX COLONOGRAPHYCT COLONOGRAPHYCleMartins Ferry Hospitaltart: 12-07-2015 DIABETES SCREENDIABETES SCREENMercy Hospitaltart: 24-57-4733Jikimiqh ScreeningDiabetes ScreeningMercy Hospitaltart: 35-80-5125BFUDJ OCCULT BLOOD FECAL OCCULT BLOODMercy Hospitaltart: 67-70-9318Yeqkx panelLipid Screening [facility]: 44-23-8203SNFFP SCREENLIPID SCREENMercy Hospitaltart: 81-63-3648Vsraznxdk for malignant neoplasm of colonMercy Hospitaltart: 40-63-2887BOSXGJZWYRCWYGBXJVZLVAYQJDIzjtjjoyh ClinicStart: 98-94-1837Epesclopyln MAMMOGRAMMercy Hospitaltart: 03-61-7148FIE TESTINGHPV TESTINGOhiohealth Grady Memorial Hospital Start: 66-78-0019Iuqpyzdgq for malignant neoplasm of cervixHPV TestingMercy Hospitaltart: 27-76-9475GJZ TESTINGPAP TESTINGMercy Hospitaltart: 12-07-1991 Screening for malignant neoplasm of cervixMercy Hospitaltart: 1989 Hepatitis B Vaccine (1 of 3 - 19+ 3-dose series)Hepatitis B Vaccine (1 of 3 - 19+ 3-dose series)[facility]: 85-32-7841Rdovp microalbumin profile [facility]: 40-84-9040Fsvdera ScreeningAnxiety ScreeningMercy Hospitaltart: 85-33-8531Cganjcpspt ScreeningDepression ScreeningOhiohealth Grady Memorial Hospital Start: 33-60-7136YVMDDNSPT C SCREENINGHEPATITIS C SCREENINGOhiohealth Grady Memorial Hospital Start: 50-78-6211Owdsvbudf C screeningHepatitis C ScreeningOhiohealth Grady Memorial Hospital Start: 29-66-8535XWV SCREENINGHIV SCREENINGMercy Hospitaltart: 26-28-3465BUO screeningHIV ScreeningMercy Hospitaltart: [id number]-19 VACCINE (#1) COVID-19 VACCINE (#1)[facility]: [id number] B (1 of 3 - 3- dose series)HEPATITIS B (1 of 3 - 3-dose series)[facility]: 23-06-3525Xopscdeua B Vaccine (1 of 3 - 3-dose series)Hepatitis B Vaccine (1 of 3 - 3-dose series)[facility]: 08-81-5597Jkzrxwsyx for malignant neoplasm of colonNONY HealthcareCardiovascular stress testingDiley Ridge Medical CenterComprehensive metabolic 1999 panel - Serum or PlasmaDiley Ridge Medical CenterComprehensive metabolic 2000 panel - Serum or Plasma [facility] CenterCT Abdomen and Pelvis WO and W contrast IVCT abdomen pelvis w and wo IV contrast Imaging Routine Generalized abdominal pain Ordered: 03/24/2024[facility] [employer] Work Phone: Comment on above:Ordered: 03/24/2024 End: [id number] Small bowel W contrast PO and W contrast IVCT ENTEROGRAPHY W IVCON Radiology Routine Abdominal pain, unspecified abdominal location 1 Occurrences starting 04/10/2024 until 5[facility] ClinicComment [facility]:1 Occurrences starting 04/10/2024 until 05/10/2025EKG 12 channel panel [facility] CenterHolter monitor [facility] SystemPatient EducationKnow your [facility] Work Phone: TESTOSTERONE, FREETESTOSTERONE, FREE Lab Routine Hormone disorder Ordered: 02/20/2025[facility] Work Phone: comment on above:Ordered: 02/20/2025Testosterone, free, totalTestosterone, free, total Lab Routine Hormone disorder Ordered: 02/20/2025[facility] HealthcareComment on above:Ordered: 02/20/2025THIN PREP TIS PAP AND HR HPV DNATHIN PREP TIS PAP AND HR HPV DNA Pathology and Cytology Routine Well woman exam with routine gynecological exam Ordered: 05/13/2024NONY HealthcareComment on above:Ordered: 05/13/2024US [facility] CenterXR [facility] 2 [facility] Immunizations Immunization DateImmunizationNotesCare NyoifyuyGfqfdeqj15-21-9726vvnrkr vaccine [facility]04-27-2021COVID-19 Ad26.COV2.S (Anabell)[facility] Payers DatePayer CategoryPayerPolicy [id number]-fom [id number] [employer] Insurance1.2.840.685492.1.13.693.2.7.9.078948.463890.42051-23-8870Psdgyve 1.2.840.779283.1.13.159.2.7.3.71846[id number] 2.16840.1.765182.3.579.[id number] 2.16840.1.603206.3.579.2.16451-60-4487Bybybyn70373953 2.0.1.215397.3.579.2.[id number] 2..1.491863.3.579.2.4[id number] 2..1.750203.3.579.2.216654-49-9055Dlriotg9460307 2..1.280801.3.579.2.620129-02-5787Ydqziry0257447 2..1.177082.3.579.2.849549-43-9367Jlpcbqb1750031 2..1.249604.3.579.2.519249-57-5078Tdcvnwx1047948 2..1.341633.3.579.2.907166-84-2641Csfqbrn3537437 2..1.911977.3.579.2.628169-62-0254Epuymva1354367 2..1.607363.3.579.2.550092-98-4287Envrkqw2743029 2..1.426787.3.579.2.932883-06-5059Drqlnot0367097 2.0.1.949406.3.579.2.294437-82-0471Oxmtgyf0818690 2.16.840.1.251007.3.579.2.763944-92-4699Fjnothg5722726 2..1.996136.3.579.2.701371-09-6792Auehcxh7851715 2..1.458606.3.579.2.125656-38-1174Jdnoydn7709082 2..1.482136.3.579.2.915877-55-7983Ghfcmzs0698789 2..1.230446.3.579.2.405481-41-0221Mifbuvz5171227 2..1.439272.3.579.2.399455-82-4037Jyykobw9630130 2..1.088869.3.579.2.254260-28-4286Fbiwfbi6473795 2..1.632435.3.579.2.328743-30-6859Yrnmozp4946179 2..1.687573.3.579.2.163081-16-6671Kasjrmn8847624 2..1.906622.3.579.2.548123-80-8329Qauzspy1995887 2..1.821050.3.579.2.894015-81-4420Vvjgxdj8463609 2..1.803575.3.579.2.871870-70-1730Sbfknkc9766753 2..1.731709.3.579.2.475277-29-3969Nlvhedi9254145 2..1.809029.3.579.2.848480-39-6205Fxcxpss9031532 2..1.819500.3.579.2.830775-18-7041Pwjudud2171037 2.0.1.198037.3.579.2.213371-18-7626Ifuguww6652960 2.0.1.412375.3.579.2.305984-62-5692Uudypki95166912437765-99-2792Vsgonfr [id number] 2.0.1.531049.3.579.2.552Fjoaajm41710313 2.0.1.794660.3.579.2.159Jtwfnti11730873 2.0.1.390423.3.579.2.531 Fjugaxg59611414 2.0.1.789799.3.579.2.531 Social History DateTypeDetailFacilityTobacco smoking status NHISTobacco smoking consumption unknownMercy Hospitaltart: 03-14-2023 End: 16-52-8840Blvmjyy of Social functionMercy Hospitaltart: 03-14-2023 End: 59-78-0605Gubn Deprivation IndexMercy Hospitaltart: 25-93-5712Pihkxkqo Score (1-100), lower number is lower kcee56EezgwxrghMercy Hospitaltart: 63-69-1613Rum Assigned At BirthNot on fileMercy Hospitaltart: 97-66-7130Rud Assigned At BirthFemaleFUniversity Hospitals Geauga Medical Centertart: 10-12-2023 End: 79-84-9599Cxfpfdy smoking status NHISNever smoked tobacco (finding) [facility]: 04-10-2024 End: 39-64-9401Qkuumay use and exposureSmokeless tobacco non-userMercy Hospitaltart: 73-30-5335Lybcywvxk beverage intakeEx-drinker (finding)[facility]: 03-22-2024 End: 05-24-9905Vsybsxwjz beverage intakeCurrent drinker of alcohol (finding)[facility] HealthcareDo you belong to any clubs or organizations such as adventist groups, unions, fraternal or athletic groups, or school groups?NoNOMS HealthcareAre you now , , , , never or living with a partner?MarriedNOMS HealthcareHow often to you have a drink containing alcohol? 2-4 times a monthNOMS HealthcareHow many standard drinks containing alcohol do you have on a typical day?1 or 2NOMS HealthcareHow often do you have 6 or more drinks on 1 occasion?NeverNOMS HealthcareDo you feel stress - tense, restless, nervous, or anxious, or unable to sleep at night because yourmind is troubled all the time - these days [OSQ]To some extentNOMS Healthcare(I/We) worried whether (my/our) food would run out before (I/we) got money to buy more.Never trueNOMS HealthcareStart: 52-94-7106Kodfmhy Comment1-2 drinks less than monthly in the past year, Caffeine intake: 1-2 cups per day coffeeNOMS HealthcareStart: 32-26-7082Fblhck identityIdentifies as female gender (finding)[facility] Start: 08-31-2024 End: 63-96-6186EwnRnoaey (finding)[facility] Goals DatePatient GoalDesired Activity/State Clinical Notes 01-06-2015 to 05-15-2025 Note Date & SeexKjwyZjvfsong01-23-3426 History of Present illness Narrative* Bethany Chang, TAPE MAKING MACHINE OPERATOR-SUPERVISING NURSE - 05/15/2025 11:10 AM EST Skin Check [...] Area, Left Upper Back, Right Anterior Mandible Beaver and brown stuck on verrucous scaly papule [...] limited to risks of scarring, darker or advertising material distributor pigmentary changes, recurrence, incomplete removal and infection. [...] limited to risks of scarring, darker or advertising material distributor pigmentary changes, recurrence, incomplete removal and infection. [...] Next Visit: 1 year documented in this encounterShriners Hospitals for ChildrenEsodepsalz38-55-7893 History of Present illness Narrative* Teressa Tello NP - 04/03/2025 9:00 AM EDT Reason for Appointment: Patient ID: Socorro Gallagher is a 54 y.o. female who presents for No chief complaint on file. Patient presents today via telephone call for a telehealth appointment. Patients Phone #: [phone] (mobile) Date: 04/03/2025 Time: 9:18 AM of the visit Platform Used: Audio call performed via in house telephone system. Location of Patient and Provider: Patient at home, provider at clinic Consent for Telehealth: Patient provided verbal consent to conduct the visit virtually via audio only phone call Current Medications: has a current medication list which includes the following prescription(s): buspirone, estradiol, estradiol, and progesterone. Medical History: Active Ambulatory Problems Diagnosis Date Noted Well woman exam with routine gynecological exam 05/13/2024 Complex ovarian cyst 07/01/2024 Pelvic pain in female 07/01/2024 Encounter to discuss test results 07/01/2024 Resolved Ambulatory Problems Diagnosis Date Noted No Resolved Ambulatory Problems Past Medical History: Diagnosis Date Kidney stone Myocardial bridge (HCC) Family History Problem Relation Name Age of Onset Heart disease Father Melanoma Neg Hx Social History Tobacco Use Smoking status: Never Smokeless tobacco: Not on file Substance Use Topics Alcohol use: Yes Comment: 1-2 drinks less than monthly in the past year, Caffeine intake: 1-2 cups per day coffee Drug use: Never Past Surgical History: Procedure Laterality Date SECTION, LOW TRANSVERSE x3 FOOT SURGERY Left plantar fasciitis surgery HYSTERECTOMY No Known Allergies Vitals: Estimated body mass index is 25.58 kg/m as calculated from the following: Height as of 03/22/24: 5' 3 . Weight as of 02/20/25: 144 lb 6.4 oz. BP: No LMP recorded (lmp unknown). Patient has had a hysterectomy. Assessment/Plan No diagnosis found. Today's telehealth visit consisted of spending 10 minutes talking to patient on the phone. Reviewedmedications climara patch and prometrium with patient today. She reports that the climara patch andestradiol cream have helped with some of her symptoms. She reports that the prometrium she felt made her feel more anxious and she discontinued use. Reviewed testosterone levels with patient and she declines referral at this time to [facility] as levels are within normal range. She reports that her sister was recently diagnosed with cancer and she has been feeling increased anxiety she would like meto prescribe her lorazepam for situational acute anxiety Documented by Teressa Tello NP on behalf of: Teressa Tello NP documented in this encounterShriners Hospitals for ChildrenXjqzkyqtyf82-46-1325 History of Present illness Narrative* Teressa Tello NP - 02/20/2025 11:30 AM [...] nursing note reviewed. Exam conducted with a echo technician present. Vitals: Estimated body mass index is [...] tele visit in 6 weeks. Documented by Treessa Tello NP on behalf of: Teressa Tello NP documented in this encounterShriners Hospitals for ChildrenKixeegeoyv45-99-0760 Evaluation note* Diagnosis Onset Date Resolution Status Admit Date Upper abdominal pain acuteMarch 2024 9:18am [facility] Work Phone: 1(477) 979-317703-03-2025 History of Present illness Narrative* Teressa Tello [...] nursing note reviewed. Exam conducted with a echo technician present. Vitals: Estimated body mass index is [...] of: Martín Torres DO documented in this encounterShriners Hospitals for ChildrenKvfqinmzgp35-74-0424 History of Present illness Narrative* Blanka Mercer, PT - 08/06/2024 5:00 PM EST Images [...] On hold with HEP. documented in this encounterShriners Hospitals for ChildrenEfapmvvoqb30-28-4083 History of Present illness Narrative* Jacque Romo - 07/31/2024 2:10 PM EST Reason for Appointment: Patient ID: Socorro Gallagher is a 53 y.o. female who presents for Pre-op Visit Patient presents today for Pre Op appointment. Patient is scheduled to undergo Da Chavez assisted Diagnostic Laparoscopy, possible ALEXNADRA, possible FOE, possible BSO on 08/30/[address] Torres at [facility]. MEDICATIONS Current Outpatient Medications Medication Instructions [...] nursing note reviewed. Exam conducted with a echo technician present. Vitals: Estimated body mass index is [...] reviewed, and patient is to proceed to [facility] OR. Follow Up: Patient is to follow up between 1-2 weeks post operative to assess proper healing and recovery fromprocedure. Documented by Camelia Frey LPN on behalf of: Martín Torres DO documented in this encounterShriners Hospitals for ChildrenAifrxgijom17-29-1142 History of Present illness Narrative* Blanka Mercer, PT - 07/18/2024 5:00 PM EST Images [...] Continue PT per POC. documented in this [facility]01-02-2025 History of Present illness Narrative* Blanka Mercer, PT - 07/11/2024 4:30 PM EST Images [...] Continue PT per POC. documented in this [facility]12-30-2024 History of Present illness Narrative* Blanka Mercer, PT - 07/08/2024 7:30 AM EST Images [...] Continue PT per POC. documented in this encounterShriners Hospitals for ChildrenYgfmzbxluz40-66-8006 History of Present illness Narrative* Yola Hylton [...] nursing note reviewed. Exam conducted with a echo technician present. Vitals: Estimated body mass index is [...] for surgical management. Patient to discuss with Construction Management Assistant prior to leaving office today. Patient given order to have another ultrasound done prior to surgery in August 2024. Documented by Yola Hylton LPN on behalf of: Martín Torres DO documented in this encounterShriners Hospitals for ChildrenFxvqkosshd86-09-2603 History of Present illness Narrative* Blanka Mercer, PT - 07/01/2024 7:30 AM EST Images [...] Continue PT per POC. documented in this encounterShriners Hospitals for ChildrenCjdsoudsry83-64-4153 History of Present illness Narrative* Blanka Mercer, PT - 06/27/2024 4:30 PM EST Images [...] Continue PT per POC. documented in this [facility]12-12-2024 History of Present illness Narrative* Blanka Mercer, PT - 06/20/2024 5:00 PM EST Images [...] Continue PT per POC. documented in this encounterShriners Hospitals for ChildrenWxvaqbiytq43-35-3379 History of Present illness Narrative* Blanka Mercer, PT - 06/18/2024 5:00 PM EST Images [...] Continue PT per POC. documented in this encounterShriners Hospitals for ChildrenSusgjvfvnk05-80-3876 History of Present illness Narrative* Blanka Mercer, PT - 06/12/2024 7:30 AM EST Images [...] Continue PT per POC. documented in this [facility]12-02-2024 History of Present illness Narrative* Blanka Mercer, PT - 06/10/2024 7:30 AM EST Images [...] Continue PT per POC. documented in this [facility]11-27-2024 History of Present illness Narrative* Blanka Mercer, PT - 06/05/2024 3:00 PM EST Images [...] Continue PT per POC. documented in this encounterShriners Hospitals for ChildrenGhmbjhzaui30-03-0438 History of Present illness Narrative* Balnka Mercer, PT - 06/03/2024 8:00 AM EST Images [...] Continue PT per POC. documented in this [facility]11-22-2024 History of Present illness Narrative* Blanka Mercer, PT - 05/31/2024 7:30 AM EST Images [...] Continue PT per POC. documented in this encounterShriners Hospitals for ChildrenEgcedrylwq70-22-2692 History of Present illness Narrative* Blanka Mercer, PT - 05/29/2024 7:30 AM EST Images [...] Continue PT per POC. documented in this [facility]11-15-2024 History of Present illness Narrative* Blanka Mercer, PT - 05/24/2024 7:00 AM EST Images [...] Continue PT per POC. documented in this [facility]11-13-2024 History of Present illness Narrative* Blanka Mercer, PT - 05/22/2024 7:30 AM EST Images [...] Continue PT per POC. documented in this encounterShriners Hospitals for ChildrenSvnlyfszkt43-54-3557 History of Present illness Narrative* Blanka Mercer, PT - 05/17/2024 12:30 PM EST Images [...] Went to see PCP and eventually saw teasel setter, gastroenterology. Cardiac heart cath was negative. CT [...] Please sign below. Date: documented in this encounterShriners Hospitals for ChildrenAqoduatkyj27-74-2454 History of Present illness Narrative* Marsha Landa, DAGMAR.[facility] - 05/14/2024 3:30 PM EST Images [...] has been under the care of her portrait painter with MRIthoracic spine imaging completed in regards to thoracic radiculopathy. She states that she is also been seen by GI and underwent endoscopy where she was advised that she has GERD. Patient's JoseA is present with patient consent. States has seen GI and PM : states that she was diagnosed with GERD. 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 Reviewed following up with her portrait painter in regards to possible thoracic spine TALA. She was advised that if portrait painter does not perform this procedure that [...] 14, 2024 TIME:3:14 PM documented in this encounterOhiohealth [facility]ady [facility]11-05-2024 NoteHNO ID: [id number] Author: MARSHA LANDA APRN.CNP Service: ? 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 pantoprazo (more content not included)...[facility]11-04-2024 Telephone encounter Note* Telephone Encounter - Dana Lozano RN - 05/13/2024 12:55 PM EST Neuro SPINE CARE COORDINATION QUICK NOTE Called patient to let her know that we received the thoracic MRI images from 05/02 along with the report. They have been uploaded to her chart. [facility]11-04-2024 Miscellaneous Notes* Telephone Encounter - Dana [...] yet and to get a CD from [facility] to bring to the appointment with Marsha tomorrow. She verbalized understanding. I also sent an email to the film library to see if they have anything pending for the patient. * Telephone Encounter - Genevieve Barbosa - 05/13/2024 12:05 PM EST Socorro is calling Marsha Landa APRN.RUBEN today to ask if you can see her MRI results from [facility], which are for tomorrow's appointment. They told her they were sent to the Imaging Library, but when she tries to call she just gets disconnected. Please advise. Patient has been identified by name and birthdate. Duration of symptoms: N/A Person calling: self Call patient at: at home [phone] (home) [phone] (cell) Was an appointment scheduled: No Closing statement: Results or non-symptom based questions: Thank you for calling [facility], your call will be returned within the next business day. Genevieve Villafuerte documented in this encounterOhiohealth Grady Memorial Hospital11-04-2024 Telephone encounter Note * Telephone Encounter - Dana Lozano RN - 05/13/2024 12:26 PM EST Neuro SPINE CARE COORDINATION QUICK NOTE Spoke with patient and advised her that we don't have any Thoracic MRI images or report yet and to get a CD from [facility] to bring to the appointment with Marsha tomorrow. She verbalized understanding. I also sent an email to the film library to see if they have anything pending for the patient. [facility]11-04-2024 Telephone encounter Note* Telephone Encounter - Genevieve Barbosa - 05/13/2024 12:05 PM EST Socorro is calling Marsha Landa APRN.SUPERVISING NURSE today to ask if you can see her MRI results from [facility], which are for tomorrow's appointment. They told her they were sent to the Imaging Library, but when she tries to call she just gets disconnected. Please advise. Patient has been identified by name and birthdate. Duration of symptoms: N/A Person calling: self Call patient at: at home [phone] (home) [phone] (cell) Was an appointment scheduled: No Closing statement: Results or non-symptom based questions: Thank you for calling [facility], your call will be returned within the next business day. Genevieve Villafuerte [facility]11-04-2024 History of Present illness Narrative* SYBIL [...] nursing note reviewed. Exam conducted with a echo technician present. Vitals: Estimated body mass index is [...] behalf of: SYBIL Ortiz documented in this encounterShriners Hospitals for ChildrenNtqgmhtjnn13-25-3131 History and physical note Author Lady Vásquez [facility] May 02, 2024 10:58amNote Date/TimeOct2023 10:18[place] [address] Gastroenterology H&P Signed Patient: Yuri Gallagher MR#: [id number] : 1970 Acct:[id number] Age/Sex: 53 / F Adm Date: 4 Loc: Room: Type: [facility] Attending Dr: Lady Vásquez DO Copies to: Lady Vásquez, DO Genevieve Feng APRN, SUPERVISING NURSE~ Date of Service: 05/02/2024 HISTORY & PHYSICAL: Patient's history with special attention to the cardiovascular, pulmonary systems and the current problem was reviewed with the patient immediately prior to the procedure. Present medications and doses reviewed in the EMR. Allergies and pertinent laboratory tests were also re viewedat this time in the EMR. The physical [...] Lady Vásquez DO> 05/02/24 1058 [facility] Work Phone: [phone]) 181-214310-24-2024 Procedure noteDiley Ridge Medical Center10-17-2024 History of Present illness Narrative* Cheyanne Toribio, RN - 04/25/2024 2:20 PM EDT Radiology [...] PATIENT PRESENTS WITH AN IMPLANTABLE OR ATTACHED STRAIGHT KNIFE MACHINE CUTTER: No RADIOLOGY DEPARTMENT: CT; Exam(s) Completed: Abdomen/Pelvis PERIPHERAL IV DATA: Site assessment: Clean,Dry and Intact, Site disposition Discontinued SIGNED BY: RT Lisa(R) April 25, 2024 2:16 PM documented in this encounterOhiohealth Grady Memorial Hospital10-17-2024 NoteHNO ID: [id number] Author: CHEYANNE TORIBIO RN Service: Nursing Author [...] Gallagher DATE: April 25, 2024 TIME: 12:53 [facility]10-17-2024 NoteHNO ID: [id number] Author: RAQUEL ROSAS RT(R) Service: ? Author [...] PATIENT PRESENTS WITH AN IMPLANTABLE OR ATTACHED STRAIGHT KNIFE MACHINE CUTTER: No RADIOLOGY DEPARTMENT: CT; Exam(s) Completed: Abdomen/Pelvis PERIPHERAL IV DATA: Site assessment: Clean,Dry and Intact, Site disposition Discontinued SIGNED BY: RT Lisa(R) April 25, 2024 2:16 [facility]10-02-2024 NoteHNO ID: [id number] Author: KYLE ZHU MD Service: ? Author [...] others. Kyle Zhu MD Date: April 10[facility]10-[facility] History of Present illness Narrative* Kyle Zhu [...] Date: April 10, 2024 documented in this encounterOhiohealth Grady Memorial Hospital09-30-2024 NoteCardiology Clinic Note Chief Complaint: New [...] (TTE) complete Result Date: 03/18/2024 1 1 [facility] Heart [facility] [address] [place] [address] [phone] (fax) Echocardiogram-[facility] Name: YURI GALLAGHER Study Date: 03/18/2024 09:23 AM B/P: / HR: 68 bpm Date of : 1970 Location: [facility] Height: 63 in. Age: 53 year(s) Patient [...] IVSd, 2D 0.71 c (more content not included)...[facility]09-13-20[facility] History of Present illness Narrative* Blanka [...] therapist. 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 Stress test was done and heart cath (Monday). Ground Crew Chief does not believe pain she is having [...] Did not see any kidney stones. Labs ([facility]) were done as well. SUBJECTIVE: CURRENT [...] Depression: Not at risk (06/19/2023) Received from [facility] PHQ-2 PHQ-2 score: 0 Social History Tobacco [...] which included preparing to see the patient, fkhl-rp-tzhp patient care including obtaining/reviewing history and performing [...] AGUIRRE D.O. This note was entered using [employer] Dashboard copilot. Grammatical and dictation errors maybe present in translation *I have reviewed and reconciled the history and medication list with the patient today* documented in this encounterShriners Hospitals for ChildrenRgcotjparo02-48-4102 NotePatient: Socorro Gallagher Procedure Information Date/Time: 03/18/24 1030 Procedure: Coronary angiography (Left) - PC APPROVED w possible PCI Location: [facility] [address] / [facility] (Cath) Providers: Seda [...] discussed with attending and fellow. Additional [facility]sL[facility]08-27-2024 History of Present illness Narrative* SYBIL [...] behalf of: SYBIL Ortiz documented in this encounterShriners Hospitals for ChildrenCrizayeedc87-13-7633 NoteCommunity [facility]08-26-2024 NoteCardiology Clinic Note Chief Complaint: [...] hesitate to contact cardiolog (more content not included)...[facility]12-13-2023 History of Present illness Narrative* Marsha Landa APRN.SUPERVISING NURSE - 06/21/2023 8:00 AM EST Images from [...] the care of pain management in [facility] where she recently underwent a right gluteal nerve block without improvement in symptoms. She states that at postinjection follow-up she was offered a piriformis injection but is reluctant to proceed. She reports that she recently had an EMG completed. EMG results were not available at time of today's appointment. 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 Author [...] the care of pain management in [facility] where she recently underwent a right gluteal nerve block without improvement in symptoms. She states that at postinjection follow-up she was offered a piriformis injection but is reluctant to proceed. She reports that she recently had an EMG completed. EMG results were not available at time of today's appointment. 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 : Denies chapa (more content not included)...[facility] 03-20-2023 History of Present illness Narrative* Oscar [...] flanks. Oscar Melgar MD documented [facility] NoteCONSULTATION CONSULTATION DATE: 10/20/2022 TO: [...] our patients to inform us about any [id number] medications or herbal remedies/nutritional supplements/alternative remedies. 2. [...] treatment options with their primary care provider.[facility] [id number] NotePROCEDURE: XR ANKLE RT MIN 3 VIEWS, [...] Electronically authenticated by: CHRISTINA ROBLERO Date: 2022-10-11 11:33[facility]04-04-2023 NotePROCEDURE: XR ANKLE RT MIN 3 [...] Electronically authenticated by: CHRISTINA ROBLERO Date: 2022-10-11 11:33[facility]06-30-2015 Evaluation note* Diagnosis Onset Date Resolution Status Anxiety January 06, 2015 acuteAnxietyJune cutePalpitationsacuteScreening for lipid disorders acuteScreening for metabolic disorderacuteScreening, deficiency anemia, iron acuteWellness examinationacute [facility] Work [facility]: [facility] note* Diagnosis Encounter for cosmetic surgery- Primary Other plastic surgery for unacceptable cosmetic appearance [facility] noteNo assessment information availableKindred Hospital [facility] Work Phone: Evaluation note* Diagnosis Right leg pain- Primary Pain in limb Numbness and tingling of right lower extremity Piriformis syndrome, right documented in this encounter [facility] note* Diagnosis Onset Date Resolution Status Chest tightness acuteDizzinessacuteFamily history of heart disease in male family member before age 55acutePalpitationsaOhioHealth [facility] Work Phone: Evaluation note* Diagnosis Onset Date Resolution Status Chest tightness acuteDizzinessacuteFamily history of heart disease in male family member before age 55acutePalpitationsacuteAbdominal painacuteBloatingacute [facility] Work Phone: Evaluation note* Diagnosis Onset Date Resolution Status Chest tightness acuteDizzinessacuteFamily history of heart disease in male family member before age 55acutePalpitationsacuteAbdominal painacuteBloatingacuteAnxietyJune cuteChest wall painacuteMyocardial bridgeacuteUTI (urinary tract infection) acute [facility] Work Phone: Evaluation note* Diagnosis Abdominal pain, unspecified abdominal location- Primary [facility]* Diagnosis Abdominal pain, unspecified abdominal location documented in this encounter [facility]* Diagnosis Onset Date Resolution Status Chest tightness acuteDizzinessacuteFamily history of heart disease in male family member before age 55acutePalpitationsacuteAbdominal painacuteBloatingacuteAnxietyJune cuteChest wall painacuteMyocardial bridgeacuteUTI (urinary tract infection) acuteUpper abdominal painacute [facility] Work Phone: Evaluation note* Diagnosis Well woman exam with routine gynecological exam Routine gynecological examination Other screening mammogram Surgical menopause documented in this encounter [facility]* Diagnosis Thoracic spondylosis- Primary Thoracic spondylosis without myelopathy 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 Displacement of thoracic intervertebral disc without myelopathy Epigastric pain Abdominal pain, epigastric documented [facility] this encounter [facility]* Diagnosis Thoracic spine pain- Primary Pain in thoracic spine Thoracic spondylosis documented in this encounter [facility]* Diagnosis Thoracic spine pain- Primary Pain in thoracic spine Thoracic spondylosis documented in this encounter [facility]* Diagnosis Thoracic spine pain- Primary Pain in thoracic spine Thoracic spondylosis documented in this encounter [facility]* Diagnosis Thoracic spine pain- Primary Pain in thoracic spine Thoracic spondylosis documented in this encounter [facility]* Diagnosis Thoracic spine pain- Primary Pain in thoracic spine Thoracic spondylosis documented in this encounter [facility]* Diagnosis Generalized abdominal pain- Primary Abdominal pain, generalized Gastroesophageal reflux disease, unspecified whether esophagitis present [facility]* Diagnosis Encounter to discuss test results Other specified counseling Pelvic pain in female Unspecified symptom associated with female genital organs documented [facility]* Diagnosis Thoracic spine pain- Primary Pain in thoracic spine Thoracic spondylosis documented [facility]* Diagnosis Thoracic spine pain- Primary Pain in thoracic spine Thoracic spondylosis documented [facility]* Diagnosis Pre-op examination Pelvic pain in female Unspecified symptom associated with female genital organs Complex cyst of left ovary [facility]* Diagnosis Postoperative follow-up Follow-up examination, following unspecified surgery [facility]* Diagnosis Complex ovarian cyst Pelvic pain in female Unspecified symptom associated with female genital organs Encounter to discuss test results Other specified counseling documented in this encounter [facility]* Diagnosis Hormone disorder- Primary Unspecified endocrine disorder Postmenopausal HRT (hormone replacement therapy) Need for prophylactic hormone replacement therapy (postmenopausal) documented in this encounter [facility]* Diagnosis Postmenopausal HRT (hormone replacement therapy)- Primary Need for prophylactic hormone replacement therapy (postmenopausal) Anxiety, generalized [facility]* Diagnosis Melanocytic nevus of lower extremity, unspecified laterality- Primary Melanocytic nevus of trunk Benign neoplasm of skin of trunk, except scrotum Lentigines Seborrheic keratosis Other rosacea Idiopathic guttate hypomelanosis Other dyschromia Rhytides Seborrheic keratosis, inflamed Inflamed seborrheic keratosis documented in this encounter [facility] note* Diagnosis Onset Date Resolution Status Admit Date Pre-op evaluation acuteNovember 2024 8:22am [facility] Work Phone: Reperl for referral (narrative)No reason for referral information availableMemorial Hospital Work Phone: Reason for visit Narrative* Rehabilitation - Outpatient (Routine) - AuthorizedSpecialtyDiagnoses / ProceduresReferred By ContactReferred To ContactPhysical Therapy Diagnoses Back pain Procedures [place] PHYSICAL THERAPY EVALUATION LOW COMPLEX 20 MINS Blanka Mercer, PT [address] [place] [address] Phone: tel: fax: Blanka Mercer, PT [address] [place] [address] Phone: tel: fax: Referral IDStatusReasonStart DateExpiration DateVisits RequestedVisits [id number] Consult and Treat [facility] HealthcareReason for visit Narrative* Rehabilitation - Outpatient (Routine) - AuthorizedSpecialtyDiagnoses / ProceduresReferred By ContactReferred To ContactPhysical Therapy Diagnoses Back pain Procedures MI PHYSICAL THERAPY EVALUATION LOW COMPLEX 20 MINS Blanka Mercer, PT [address] [place] [address] Phone: tel: fax: Blanka Mercer, PT [address] [place] [address] Phone: tel: fax: Referral IDStatusReasonStart DateExpiration DateVisits RequestedVisits [id number] Consult and Treat [facility] HealthcareReason for visit Narrative* Rehabilitation - Outpatient (Routine) - AuthorizedSpecialtyDiagnoses / ProceduresReferred By ContactReferred To ContactPhysical Therapy Diagnoses Low back pain, unspecified Procedures MI THERAPEUTIC PX 1/> AREAS EACH 15 MIN EXERCISES Marsha Landa MD [address] [place] [address] Phone: tel: fax: Blanka Mercer, PT [address] [place] [address] Referral IDStatusReasonStart DateExpiration DateVisits RequestedVisits [id number]/31/202412/31/[id number] [facility] HealthcareReason for visit Narrative* Rehabilitation - Outpatient (Routine) - AuthorizedSpecialtyDiagnoses / ProceduresReferred By ContactReferred To ContactPhysical Therapy Diagnoses Low back pain, unspecified Procedures MI THERAPEUTIC PX 1/> AREAS EACH 15 MIN EXERCISES Marsha Landa MD [address] [place] [address] Phone: tel: fax: Blanka Mercer, PT [address] [place] [address] Referral IDStatusReasonStart DateExpiration DateVisits RequestedVisits [id number]/31/20246/29/[id number] [facility] Summary Purpose Family History No Family History Records Found Relationship Condition Age at Onset Recorded Date/T valentina father Unknown Heart diseaseUnknown Advance Directives No Advanced Directives Records Found [...] Complaint Lumbar Radiculopathy Chief Complaint possible anxiety WellnessReason for VisitAnxiety Anxiety Palpitations Screening for lipid disorders Screening for metabolic disorder Screening, deficiency anemia, iron Wellness examination Chief Complaint no appatite, no ener gy, not feel well Reason for Visit Chest tightness Dizziness Family history of heart disease in male family member before age 55 Palpitations Chief Complaint no appatite, no ener gy, not feel well dicuss more about pain under ribsReason for VisitChest tightness Dizziness Family history of heart disease in male family member before age 55 Palpitations Abdominal pain Bloating Chief Complaint no appatite, no ener gy, not feel well dicuss more about pain under ribs follow up after testingReason for VisitChest tightness Dizziness Family history of heart disease in male family member before age 55 Palpitations Abdominal pain Bloating Chief Complaint no appatite, no ener gy, not feel well dicuss more about pain under ribs follow up after testing frequency, burningReason for VisitChest tightness Dizziness Family history of heart disease in male family member before age 55 Palpitations Abdominal pain Bloating Anxiety Chest wall pain Myocardial bridge UTI (urinary tract infection) Chief Complaint no appatite, no ener gy, not feel well dicuss more about pain under ribs follow up after testing Urinary tract infection frequency, burningReason for VisitChest tightness Dizziness Family history of heart disease in male family member before age 55 Palpitations Abdominal pain Bloating Anxiety Chest wall pain Myocardial bridge UTI (urinary tract infection) Chief Complaint no appatite, no ener gy, not feel well dicuss more about pain under ribs follow up after testing N39.0 frequency, burning Abnormal Ct/thickening small intReason for VisitChest tightness Dizziness Family history of heart disease [...] thoracic neuritis upper abdominal pain upper abdominal painReason for VisitChest tightness Dizziness Family history of heart disease [...] abdominal pain September 25, 2024 9: 18am Chief Complaint Admit Date Pre Surgical Clearance May 16 8:22am Reason for Visit Admit Date Pre-op evaluation May 16, 2025 8 :22am Reason for Referral SpecialtyDiagnoses / ProceduresReferred By ContactReferred To ContactCT IMAGING Diagnoses Abdominal pain, unspecified abdominal location Procedures CT ENTEROGRAPHY W IVCON CT ABD & PELVIS W/CONTRAST Kyle Zhu MD [address] [place] [address] [place] [address] Referral IDStatusReasonStart DateExpiration DateVisits RequestedVisits [id number] Auto-Generated Referral /[id number] IDStatusReasonStart DateExpiration DateVisits RequestedVisits [id number] Auto-Generated Referral /[id number] / ProceduresReferred By ContactReferred To ContactREHAB AND SPORTS THERAPY INS Diagnoses Generalized abdominal pain Thoracic spondylosis 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 Procedures CONSULT TO PHYSICAL THERAPY PHYSICAL THERAPY EVALUATION HIGH COMPLEX 45 MINS Marsha Landa, TAPE MAKING MACHINE OPERATOR.SUPERVISING NURSE [address] [place] [address] [facility] [address] [place] [address] Referral IDStatusReasonStart DateExpiration DateVisits RequestedVisits [id number] Review Auto-Generated Referral [id number] / ProceduresReferred By ContactReferred To ContactRadiology Diagnoses Generalized abdominal pain Procedures CT abdomen pelvis w and wo IV contrast Blanka Aguirre, DO [address] [place] [address] Referral IDStatusReasonStart DateExpiration DateVisits RequestedVisits [id number] Review/ Additional Source Comments INFORMATION SOURCE (unrecogn ized section and content) DATE CREATED AUTHOR 09/08/2020 [facility] DATE CREATED AUTHOR AUTHOR'S ORGANIZ ATION 10/27/[address] [facility] DATE CREATED AUTHOR AUTHOR'S ORGANIZ ATION 05/16/2024 [facility] DATE CREATED AUTHOR AUTHOR'S ORGANIZ ATION 05/27/2024 [facility] DATE CREATED AUTHOR AUTHOR'S ORGANIZ ATION 09/04/2024 [facility] DATE CREATED AUTHOR AUTHOR'S ORGANIZ ATION 05/17/2025 [facility] EPIC Source Comments (unrecognize d section and content) In the event this informatio n is protected by the Federal Confidentiality of Alcohol and Drug Abuse Patient Records regulations: The Federal rules restrict any use of the information to criminally investigate or prosecute any alcohol or drug abuse patient.[facility] HospitalIn the event this information is protected by the Federal Confidentiality of Alcohol and Drug Abuse Patient Records regulations: The Federal rules restrict any use of the information to criminally investigate or prosecute any alcohol or drug abuse patient.[facility] HospitalIn the event this information is protected by the Federal Confidentiality of Alcohol and Drug Abuse Patient Records regulations: The Federal rules restrict any use of the information to criminally investigate or prosecute any alcohol or drug abuse patient.[facility] HospitalIn the event this information is protected by the Federal Confidentiality of Alcohol and Drug Abuse Patient Records regulations: The Federal rules restrict any use of the information to criminally investigate or prosecute any alcohol or drug abuse patient.[facility] HospitalIn the event this information is protected by the Federal Confidentiality of Alcohol and Drug Abuse Patient Records regulations: The Federal rules restrict any use of the information to criminally investigate or prosecute any alcohol or drug abuse patient.[facility] HospitalIn the event this information is protected by the Federal Confidentiality of Alcohol and Drug Abuse Patient Records regulations: The Federal rules restrict any use of the information to criminally investigate or prosecute any alcohol or drug abuse patient.[facility] HospitalIn the event this information is protected by the Federal Confidentiality of Alcohol and Drug Abuse Patient Records regulations: The Federal rules restrict any use of the information to criminally investigate or prosecute any alcohol or drug abuse patient.[facility] HospitalIn the event this information is protected by the Federal Confidentiality of Alcohol and Drug Abuse Patient Records regulations: The Federal rules restrict any use of the information to criminally investigate or prosecute any alcohol or drug abuse patient.[facility] Reason for Visit (unrecogniz ed section and content) ReasonCommentsRadiology CTSpecialtyDiagnoses / ProceduresReferred By Contact Referred To ContactCT IMAGING Diagnoses Abdominal pain, unspecified abdominal location Procedures CT ENTEROGRAPHY W IVCON CT ABD & PELVIS W/CONTRAST Kyle Zhu MD [address] [place] [address] Ct Imaging [id number] Referral IDStatusReasonStart DateExpiration DateVisits RequestedVisits [id number] Auto-Generated Referral [id number]hsxPralntenErv PatientLow Back Pain ReasonCommentsNew PatientPer CT small bowel polypReasonCommentsGynecologic Exam ReasonCommentsPatient QuestionReasonCommentsNew PatientThoracic back painReason CommentsBack NtbnRatejoUjdyobcwMhgbii-siLusynqGfjtejuqWob-zm VisitReasonComments Post-op VisitReasonCommentsfollow up labs and ultrasoundComplex cystReason CommentsHormone therapy replacementReasonCommentsSkin CheckFollow-up Care Teams (unrecognized sec tion and content) Team Status: Active Member Role Status Dates Agustin Mortensen MD Primary Care Provider Active Team Status: Inactive Member Role Status Dates Agustin Mortensen MD Primary Care Provider Active Narendranterri Lakshmipathy , MDAttending ProviderActive Team Status: Active Member Role Status Dates Genevieve Feng APRN CUSTOMER CARE REPRESENTATIVE-C Primary Care Provider Active Team Status: Inactive Member Role Status Dates Agustin Mortensen MD Primary Care Provider Active Start: September 14, 2023 End: September 14, 2023Genevieve Feng APRN CUSTOMER CARE REPRESENTATIVE-CAttenhunter ProviderActive Start: September 14, 2023 End: September 14, 2023 Team Status: Inactive Member Role Status Dates Agustin Mortensen MD Primary Care Provider Active Start: October 12, 2023 End: October 12, 2023Genevieve Feng APRN CUSTOMER CARE REPRESENTATIVE-CAttenhunter ProviderActive Start: October 12, 2023 End: October 12, 2023 Team Status: Inactive Member Role Status Dates Genevieve Feng APRN CUSTOMER CARE REPRESENTATIVE-C Primary Care Provider, Attending Provider Active Start: February 19, 2024 End: February 19, 2024 Team Status: Inactive Member Role Status Dates Genevieve Feng APRN CUSTOMER CARE REPRESENTATIVE-C Primary Care Provider, Attending Provider Active Start: February 26, 2024 End: February 26, 2024 Team Status: Active Member Role Status Dates Genevieve Feng APRN CUSTOMER CARE REPRESENTATIVE-C Primary Care Provider Active Start: March 132023 Seda Douglass MDAttending ProviderActiveStart: March 13, 2024 Team Status: Inactive Member Role Status Dates Genevieve Feng APRN CUSTOMER CARE REPRESENTATIVE-C Primary Care Provider, Attending Provider Active Start: March 21, 2024 End: March 21, 2024 Team Status: Active Member Role Status Dates Genevieve Feng APRN CUSTOMER CARE REPRESENTATIVE-C Primary Care Provider Active Start: March 04, 2024 Sandeep Obrien DOAttending ProviderActiveStart: March 04, 2024 Team Status: Inactive Member Role Status Dates Genevieve Feng APRN CUSTOMER CARE REPRESENTATIVE-C Primary Care Provider, Attending Provider Active Start: April 02, 2024 End: April 02, 2024 Team Status: Inactive Member Role Status Dates Genevieve Feng APRN CUSTOMER CARE REPRESENTATIVE-C Attending Provider Act star Start: April 02, 2024 End: April 02, 2024 Team Status: Inactive Member Role Status Dates Genevieve Feng APRN CUSTOMER CARE REPRESENTATIVE-C Attending Provider Act star Start: April 02, 2024 End: April 02HYSICIAN NO FAMILYPrimary Care ProviderActiveStart: April 02, 2024 End: April 02, 2024 Team Status: Inactive Member Role Status Dates Lady Vásquez DO Attending Provider Active St art: May 01, 2024 End: May 01, 2024Genevieve Feng APRN CUSTOMER CARE REPRESENTATIVE-CPrimary Care Provider ActiveStart: May 01, 2024 End: May 01, 2024 Team Status: Active Member Role Status Dates Genevieve Feng APRN CUSTOMER CARE REPRESENTATIVE-C Primary Care Provider Active Start: April Jose Guadalupe Costa MDAttending ProviderActiveStart: May 02, 2024 Team Status: Inactive Member Role Status Dates Genevieve Feng APRN CUSTOMER CARE REPRESENTATIVE-C Primary Care Provider Active Start: April End: May 02meredith Felix Ly , DOAttending ProviderActiveStart: May 02, 2024 End: May 02, 2024 Team Status: Active Member Role Status Dates Genevieve Feng APRN CUSTOMER CARE REPRESENTATIVE-C Primary Care Provider Active Start: April Lady Vásquez , DOAttending Provider, Other ProviderActiveStart: May 02, 2024 Team Status: Inactive Member Role Status Dates Genevieve Feng APRN CUSTOMER CARE REPRESENTATIVE-C Primary Care Provider Active Start: April End: May 02, 2024Narendranterri Torresmistevenson , MDAttending ProviderActive Start: May 02, 2024 End: May 02, 2024Team MemberRelationshipSpecialtyStart DateEnd Date Agustin Mortensen MD [address] [place] [address] PCP - GeneralFamily Medicine03/16/23Team MemberRelationshipSpecialtyStart DateEnd Date Agustin Mortensen MD [address] [place] [address] PCP - GeneralFamily Medicine03/16/23Team MemberRelationshipSpecialtyStart DateEnd Date Agustin Mortensen MD [address] [place] [address] PCP - GeneralFamily Medicine03/16/23Team MemberRelationshipSpecialtyStart DateEnd Date Agustin Mortensen MD [address] [place] [address] PCP - GeneralFamily Medicine03/16/23 Blanka Aguirre DO [address] [place] [address] PCP - Medical [place] [employer]07/10/1711Team MemberRelationshipSpecialty Start DateEnd Date Agustin Mortensen MD [address] [place] [address] PCP - [facility]State [facility] Medicine03/16/23 Blanka Aguirre DO [address] [place] [address] PCP - Medical [place] [employer]07/10/1711Team MemberRelationshipSpecialty Start DateEnd Date Agustin Mortensen MD [address] [place] [address] PCP - [facility] Medicine03/16/23 Blanka Aguirre DO [address] [place] [address] PCP - Medical [place] [employer]07/10/1711Team MemberRelationshipSpecialty Start DateEnd Date Agustin Mortensen MD [address] [facility] [place] [address] PCP - GeneralState [facility] Medicine03/16/23 Blanka Aguirre DO [address] [place] [address] PCP - Medical [place] [employer]07/10/1711Team MemberRelationshipSpecialty Start DateEnd Date Agustin Mortensen MD [address] [place] [address] PCP - GeneralFamily Medicine03/16/23 Blanka Aguirre DO [address] [place] [address] PCP - Medical [place] [employer]07/10/1711Team MemberRelationshipSpecialty Start DateEnd Date Agustin Mortensen MD [address] [place] [address] PCP - [facility] Medicine03/16/23 Blanka Aguirre, [address] [place] [address] PCP - Medical [place] [employer]07/10/1711Team MemberRelationshipSpecialty Start DateEnd Date Agustin Mortensen MD [address] [place] [address] PCP - GeneralState [facility] Medicine03/16/23 Blanka Aguirre, [address] [place] [address] PCP - Medical [place] [employer]07/10/1711Team MemberRelationshipSpecialty Start DateEnd Date Agustin Mortensen MD [address] [place] [facility] [place] [address] PCP - [facility] Medicine03/16/23 Blanka Aguirre, [address] [place] [address] PCP - Medical [place] [employer]/Team MemberRelationshipSpecialty Start DateEnd Date Agustin Mortensen MD [address] [place] [facility] [address] PCP - GeneralFamily Medicine03/16/23 Blanka Aguirre, [address] [place] [address] PCP - Medical [place] [employer]/Team MemberRelationshipSpecialty Start DateEnd Date Agustin Mortensen MD [address] [place] [address] PCP - GeneralFamily Medicine03/16/23Team MemberRelationshipSpecialtyStart DateEnd Date Agustin Mortensen MD [address] [place] [facility] [address] PCP - GeneralFamily Medicine03/16/23Team MemberRelationshipSpecialtyStart DateEnd Date Agustin Mortensen MD [address] [place] [facility] [address] PCP - GeneralFamily Medicine03/16/23Team MemberRelationshipSpecialtyStart DateEnd Date Agustin Mortensen MD [address] [place] [facility] [place] [address] PCP - GeneralFamily Medicine03/16/23 Blanka Aguirre, [address] [facility] [address] [place] [address] PCP - Medical [place] [employer]07/10/1711Team MemberRelationshipSpecialty Start DateEnd Date Agustin Mortensen MD [address] [facility] [address] PCP - GeneralFamily Medicine03/16/23 Blanka Aguirre DO [address] [place] [address] PCP - Medical [place] [employer]07/10/1711Team MemberRelationshipSpecialty Start DateEnd Date Agustin Mortensen MD [address] [place] [facility] [place] [address] PCP - GeneralFamily Medicine03/16/23 Blanka Aguirre DO [address] [place] [address] PCP - Medical [place] [employer]07/10/1711Team MemberRelationshipSpecialty Start DateEnd Date Agustin Mortensen MD [address] [place] [facility] [place] [address] PCP - GeneralFamily Medicine03/16/23 Blanka Aguirre DO [address] [place] [address] PCP - Medical [place] [employer]07/10/1711Team MemberRelationshipSpecialty Start DateEnd Date Agustin Mortensen MD [address] [place] [facility] [place] [address] PCP - GeneralFamily Medicine03/16/23 Blanka Aguirre DO [address] [place] [address] PCP - [facility]07/10/1711 Team Status: Active Member Role Status Dates Genevieve Feng APRN CUSTOMER CARE REPRESENTATIVE-C Primary Care Provider Active Start: June Martín Torres DOAttending ProviderActiveStart: June 12, 2024 Team Status: Active Member Role Status Dates Genevieve Feng APRN CUSTOMER CARE REPRESENTATIVE-C Primary Care Provider Active Start: August Martín Torres DOAttending ProviderActiveStart: August 15, 2024 Team Status: Active Member Role Status Dates Genevieve Feng APRN CUSTOMER CARE REPRESENTATIVE-C Primary Care Provider Active Start: August 302024 Martín Torres DOAttending ProviderActiveStart: August 30, 2024 Team Status: Inactive Member Role Status Dates Martín Torres DO Attending Provider Active Start : August 30, 2024 End: August 30, 2024 Team Status: Active Member Role Status Dates Sandeep Obrien DO Attending Provider Active Sta rt: August 15, 2024 Team Status: Inactive Member Role Status Dates Lady Vásquez DO Attending Provider Active St art: September 25, 2024 End: September 25, 2024Genevieve Feng APRN CUSTOMER CARE REPRESENTATIVE-CPrimary Care ProviderActive Start: September 25, 2024 End: September 25, 2024 Team Status: Inactive Member Role Status Dates Genevieve Feng APRN CUSTOMER CARE REPRESENTATIVE-C Primary Care Provider, Attending Provider Active Start: September 25, 2024 End: September 25, 2024Team MemberRelationshipSpecialtyStart DateEnd Date Agustin Mortensen MD [address] [place] [address] PCP - [facility]03/16/23 Blanka Aguirre DO [address] [place] [address] PCP - Medical [place] [employer]/Te MemberRelationshipSpecialty Start DateEnd Date Agustin Mortensen MD [address] [place] [facility] [address] PCP - GeneralFamily Medicine03/16/23 Blanka Aguirre DO [address] [place] [address] PCP - Medical [place] [employer]07/10/1711Team MemberRelationshipSpecialty Start DateEnd Date Agustin Mortensen MD [address] [place] [facility] [address] [facility] - [facility]03/16/23 Blanka Aguirre DO [address] [place] [address] PCP - Medical [place] [employer]07/10/1711Team MemberRelationshipSpecialty Start DateEnd Date Agustin Mortensen MD [address] [facility] [address] [facility] - [facility]03/16/23 Blanka Aguirre DO [address] [place] [address] PCP - Medical [place] [employer]07/10/1711Team MemberRelationshipSpecialty Start DateEnd Date Agustin Mortensen MD [address] [place] [facility] [address] PCP - GeneralFamily Medicine03/16/23 Blanka Aguirre DO [address] [place] [address] PCP - Medical [place] [employer]07/10/1711Team MemberRelationshipSpecialty Start DateEnd Date Agustin Mortensen MD [address] [place] [address] PCP - Generalmi Medicine03/16/23 Blanka Aguirre, [address] [place] [address] PCP - Medical [place] [employer]07/10/1711Team MemberRelationshipSpecialty Start DateEnd Date Agustin Mortensen MD [address] [place] [facility] [address] PCP - Generalmily Medicine03/16/23 Blanka Aguirre, [address] [place] [address] PCP - Medical [place] [employer]07/10/1711Team MemberRelationshipSpecialty Start DateEnd Date Agustin Mortensen MD [address] [place] [address] PCP - GeneralFamily Medicine03/16/23 Blanka Aguirre DO [address] [place] [address] PCP - Medical [place] [employer]07/10/1711Team MemberRelationshipSpecialty Start DateEnd Date Agustin Mortensen MD [address] [facility] [place] [address] [facility] - [facility]03/16/23 Blanka Aguirre DO [address] [facility] [address] [place] [address] PCP - Medical [facility]07/10/1711 Team Status: Active Member Role/Relationship Status Dates Genevieve Feng APRN CUSTOMER CARE REPRESENTATIVE-C Primary Care Provider Active Team Status: Active Member Role/Relationship Status Dates Genevieve Feng APRN CUSTOMER CARE REPRESENTATIVE-C Primary Care Provider Active Start: February 28, 2025 Teressa Tello APRN CUSTOMER CARE REPRESENTATIVE-CAttending ProviderActiveStart: February 28, 2025 Team Status: Inactive Member Role/Relationship Status Dates Genevieve Feng APRN CUSTOMER CARE REPRESENTATIVE-C Primary Care Provider Active Start: May End: May 16, 2025Genevieve Feng APRN CUSTOMER CARE REPRESENTATIVE-CAttending ProviderActive Start: May 16, 2025 End: May 16, 2025 Goals (unrecognized section and content) Goals may [...] THE PRIMARY CLINICAL RECORDS. [facility]. provides no warranty or guarantee of the accuracy or completeness of information in this document.
--- OUTSIDE RECORDS SUMMARY | 2025-05-17 08:13 | XMS_ITS | Patient Health Record ---
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
--- OUTSIDE RECORDS SUMMARY | 2025-05-17 08:13 | XMS_ITS | Encounter Summary ---
Author Organization [facility] Address [address] [place] [address] Care Team Providers Care Six Pack Packer Name Role Phone Patience Jimenez MD Primary Care Provider [phone] González Mcallister DO Unavailable [phone] Encounter Details DateTypeDepartmentCare Team (Latest Contact Info)Oaifmfvjgww34/06/2025Travel Social History Tobacco UseTypesPacks/DayYears UsedDateSmoking Tobacco: NeverSmokeless Tobacco: NeverAlcohol UseStandard Drinks/WeekCommentsYes0 (1 standard drink = 0.6 oz pure alcohol)1-2 drinks less than monthly in the past year, Caffeine intake: 1-2 cups per day [id number] Health LiteracyAnswerDate RecordedHow often do you need [...] 03/20/2024How often do you attend episcopal or denominational services?Never03/20/2024o you belong to any clubs or organizations such as episcopal groups, unions, fraternal or athletic groups, or school groups?No03/20/2024How often do you attend meetings of the clubs or organizations you belong to?Never03/20/2024re you , , , , never , or living with a partner?Srsqkfq6003/20/2024UDIT-CAnswerDate RecordedQ1: How often do you have a [...] housing, medical care, and heating?Not hard at all03/20/2024[facility] [place] of Occup[facility] Health - Occupational Stress QuestionnaireAnswerDate RecordedDo you feel stress - tense, restless, nervous, or anxious, or unable to sleep at night because yourmind is troubled all the time - these days?To some qwdwyh0603/20/2024Exercise Vital Sign AnswerDate RecordedOn average, how many [...] homeless or living in a fpc (including now)?No09/11/2024CommentsNoSex and Gender InformationValueDate RecordedSex Assigned at ScaxlYkxjje96/07/2023 11:27 AM EDT Legal YifKiquif72/15/2023 8:01 PM EDTGender CyzxazjpZqmapj28/07/2023 11:27 AM EDTSexual OrientationNot on filedocumented as of this encounter Plan of Treatment DateTypeDepartmentCare Team (Latest Contact Info)Rinbnpkxyom30/09/2026 4:00 PM ESTOffice Visit [facility] [address] [place] [address] Bebe Chang, DENTAL AMALGAM PROCESSOR-MUSKRAT TRAPPER [address] [place] [address] documented as of this encounter Visit Diagnoses Not on filedocumented in this encounter Care Teams Team MemberRelationshipSpecialtyStart DateEnd Date Patience Jimenez MD [address] [facility] [place] [address] PCP - GeneralFamily Medicine03/16/23 González Mcallister DO [address] [place] [address] PCP - Medical [place] [employer]07/10/1711documented as of this encounter
--- OUTSIDE RECORDS SUMMARY | 2025-05-17 08:14 | XMS_ITS | Clinical Summary ---
Author Organization [facility] Address [address] [place] [address] Care Team Providers Care Casing Wringer Operator Name Role Phone Sandeep Mcclelland DO Primary Care Provider [phone] Allergies No known active allergies Medications MedicationSigDispense QuantityRefillsLast FilledStart DateEnd DateStatus busPIRone (Buspar) 5 mg tablet Take 5 mg by mouth two times daily.Active estradiol (Estrace) 0.5 mg tablet Take 0.5 mg by mouth in the morning. Pt is taking half a pillActive aspirin 81 mg EC tablet Take 81 mg by mouth in the morning.Active LORazepam (Ativan) 0.5 mg tablet Take 0.5 mg by mouth every 6 (six) hours if needed for anxiety.Active rosuvastatin (Crestor) 20 mg tablet Indications:Abnormal stress testTake 1 tablet (20 mg) by mouth in the morning. 90 tablet ctive Additional Information Patient not taking.Reported on 04/08/2024 metoprolol succinate XL (Toprol-XL) 25 mg 24 hr tablet Indications:Abnormal stress testTake 1 tablet (25 mg) by mouth in the morning. Do not crush or chew. 90 tablet ctive Additional Information Patient not taking.Reported on 04/08/2024 pantoprazole (ProtoNix) 40 mg EC tablet Take 40 mg by mouth before breakfast.03/22/2024ctive Active Problems ProblemNoted DateDiagnosed DateAbdominal pain04/08/20248917Orzucgqo55/30/2024hest eqkowrxzo77/30/2024hest wall pain04/08/20245585Rzrprdtaa96/30/2024Family history of heart disease in male family member before age 55004/08/2024Myocardial bridge 04/08/20249781Rcsqjfbbacih26/30/2024Screening, deficiency anemia, iron04/08/2024UTI (urinary tract infection)04/08/2024bnormal stress test03/04/2024Nerve entrapment syndrome of right foot01/30/20233601Yirxmfs76/30/2015 Family History Medical HistoryRelationNameCommentsHeart attackFatherCoronary artery disease Father's BrotherNo Known ProblemsMotherStrokePaternal GrandfatherRelationName StatusCommentsFatherFather's BrotherMotherPaternal Grandfather Social History Tobacco UseTypesPacks/DayYears UsedDateSmoking Tobacco: NeverSmokeless Tobacco: Never Tobacco Cessation:Counseling Given: Not Answered Alcohol UseStandard Drinks/WeekCommentsNot Asked0 (1 standard drink = 0.6 oz pure alcohol)occationCommentsUnknownSex and Gender InformationValueDate RecordedSex Assigned at BirthNot on fileLegal NonGpgkcr00/26/2024 8:55 AM EDT Gender IdentityNot on fileSexual OrientationNot on file Last Filed Vital Signs Vital SignReadingTime TakenCommentsBlood Lqaqlpje000/8604/08/2024 3:18 PM EDT Uhaiw663004/08/2024 3:18 PM EDTTemperature--Respiratory Dusl380403/18/2024 1:30 PM EDTOxygen Isbgsiozjr29%04/08/2024 3:18 PM EDTInhaled Oxygen Concentration-- Bbtgea61 kg (139 lb)04/08/2024 3:18 PM BTDSdymfb506 cm (5' 3 )04/08/2024 3:18 PM EDTBody Mass Index24.62004/08/2024 3:18 PM EDT Plan of Treatment Health MaintenanceDue DateLast DoneCommentsCT Hgcghqpitwxt01/30/1971Colonoscopy 1970FIT-DNA1970FOBT12/06/19709466Yqmsobqherzqz11/30/1971Depression Crseuhmhq47/30/1983Hepatitis B Vaccines (1 of 3 - 19+ 3-dose series)1989 Adult Dowlrkx8812/06/1992HPV/Victjr4112/06/2000Colorectal Cancer Ppoivtkax81/15/2022 FIT/Zoster Vaccines (2 of 2)04/25//Influenza Vaccine (#1)03/10/20253709Bbtikicdb04/04/202512/ervical Cancer Screening 05/13/2027Pap Smear/10/2023HIB VaccinesAged OutNo longer eligible based on patient's age to complete this topicHPV VaccinesAged OutNo longer eligible based on patient's age to complete this topicIPV VaccinesAged OutNo longer eligible based on patient's age to complete this topicMeningococcal B VaccineAged OutNo longer eligible based on patient's age to complete this topic Meningococcal VaccineAged OutNo longer eligible based on patient's age to complete this topicPneumococcal Vaccine: Pediatrics (0 to 5 Years) and At-Risk Patients (6 to 64 Years)Aged OutNo longer eligible based on patient's age to complete this topicRotavirus VaccinesAged OutNo longer eligible based on patient's age to complete this topic Insurance Care Teams Team MemberRelationshipSpecialtyStart DateEnd Date Sandeep Mcclelland DO [address] [place] [address] PCP - GeneralInternal Medicine03/19/24
--- OUTSIDE RECORDS SUMMARY | 2025-05-17 08:14 | XMS_ITS | Encounter Summary ---
Author Organization [facility] Address [address] [facility] [place] [address] Care Team Providers Care Switchboard Mechanic Name Role Phone Patience Jimenez MD Primary Care Provider [phone] González Mcallister DO Unavailable [phone] Encounter Details DateTypeDepartmentCare Team (Latest Contact Info)Rfrfpsqedli68/12/2024Clinisync Result Encounter [facility] External Department Unsolicited Rosetta Torres DO [address] [place] [address] Social History Tobacco UseTypesPacks/DayYears UsedDateSmoking Tobacco: NeverAlcohol UseStandard Drinks/WeekCommentsYes0 (1 standard drink = 0.6 oz pure alcohol)1-2 drinks less than monthly in the past year, Caffeine intake: 1-2 cups per day xozynxL1726 Health LiteracyAnswerDate RecordedHow often do you need to have someone help you when you read instructions, pamphlets, or other written material from your doctor or pharmacy?Never03/20/2024Social Connection and Isolation PanelAnswer Date RecordedIn a typical week, how many times do you talk on the phone with family, friends, or neighbors?More than three times a week03/20/2024How often do you get together with friends or relatives?Once a week03/20/2024How often do you attend oriental orthodox or jainism services?Never4Do you belong to any clubs or organizations such as oriental orthodox groups, unions, fraternal or athletic groups, or school groups?No03/20/2024How often do you attend meetings of the clubs or organizations you belong to?Never03/20/2024re you , , , , never , or living with a partner?Gbgxqdz5503/20/2024UDIT-C AnswerDate RecordedQ1: How often do you have a drink containing alcohol?2-4 times a month03/20/2024Q2: How many drinks containing alcohol do you have on a typical day when you are drinking?1 or Q3: How often do you have six or more drinks on one occasion?Never03/20/2024Overall Financial Resource Strain (CARDIA)AnswerDate RecordedHow hard is it for you to pay for the very basics like food, housing, medical care, and heating?Not hard at all03/20/2024[facility] [place] of Occupational Health - Occupational Stress QuestionnaireAnswerDate RecordedDo you feel stress - tense, restless, nervous, or anxious, or unable to sleep at night because yourmind is troubled all the time - these days?To some iivwyt4503/20/2024Exercise Vital SignAnswerDate RecordedOn average, how many days per week do you engage in moderate to strenuous exercise (like a brisk walk)?7 days03/20/2024On average, how many minutes do you engage in exercise at this level?60 min03/20/2024Hunger Vital SignAnswerDate RecordedWithin the past 12 months, you worried that your food would run out before you got the money to buy more.Never true03/20/2024Within the past 12 months, the food you bought just didn't last and you didn't have money to get more.Never true03/20/2024RAPARE - TransportationAnswerDate RecordedIn the past 12 months, has lack of transportation kept you from medical appointments or from getting medications?No 03/20/2024In the past 12 months, has lack of transportation kept you from meetings, work, or from getting things needed for daily living?No03/20/2024 Housing Stability Vital SignAnswerDate RecordedIn the last 12 months, was there a time when you were not able to pay the mortgage or rent on time?No03/20/2024 Number of Times Moved in the Last YearNot on file4At any time in the past 12 months, were you homeless or living in a senior living (including now)?No 4CommentsNoSex and Gender InformationValueDate RecordedSex Assigned at AqtduTtgtju72/07/2023 11:27 AM EDTLegal EnkStuokq03/15/2023 8:01 PM EDTGender ZxkvlvfmQqvcky51/07/2023 11:27 AM EDTSexual OrientationNot on file documented as of this encounter Plan of Treatment DateTypeDepartmentCare Team (Latest Contact Info)Frpxwflyeya86/09/2026 4:00 PM ESTOffice Visit [facility] [address] [place] [address] Bebe Chang APRN-BAG MAKING MACHINE TENDER [address] [place] [address] documented as of this encounter Procedures Procedure NamePriorityDate/TimeAssociated DiagnosisCommentsUS PELVIS W/ IWICPYDOCKGJ56/12/2024 3:18 PM EST documented in this encounter Results * US PELVIS W/ TRANSVAGINAL (05/21/2024 3:18 PM EST)Anatomical RegionLaterality ModalityOtherSpecimen (Source)Anatomical Location / LateralityCollection Method / VolumeCollection TimeReceived Time05/21/2024 3:18 PM EST Narrative 05/21/2024 3:20 PM EST [facility] ?[address] ? [place] [address] ? Ultrasound Report ? Signed ? Patient: YURI GALLAGHER ?MR#: [id number] ?? : 1970 ?Acct:[id number] ?? Age/Sex: 53 / F ?ADM Date: 05/20/24 ?? Loc: [facility] ? Attending Dr: Rosetta Torres D.O. ? Ordering Physician: Rosetta Torres D.O. ?? Date of Service: 05/20/24 ?? Procedure(s): US pelvis w/ transvaginal ?? Accession Number(s): [id number] ? cc: Rosetta Torres D.O.; DANAY BLACKMON ? [facility] ? [address] ? [place] [address] ? Patient Name: ?? YURI GALLAGHER ? MRN: [facility]:[id number] ? date: 1970 ?Sex: F ?? Assigned Patient Location: [facility] ?? Current Patient Location: ? Accession/Order Number: [id number] ?? Exam Date: 05/20/2024 ??10:58 ?Report Date: 05/21/2024 ??15:18 ? At the request of: ?? ROSETTA ??GUSTAVO ? Procedure: ??US pelvis w/ transvaginal ? EXAMINATION: US pelvis w/ transvaginal ? HISTORY: Adnexal cyst N94.9 ? COMPARISON: 02/29/2024 ? FINDINGS: ? The uterus is surgically absent ? The right ovary is not visualized ? The left ovary is only visualized on transabdominal images measuring 4.8 x 4.1 ? x 3.8 cm. 4.1 x 2.8 x 3.2 cm area of anechoic echogenicity a simple cyst is ?? favored ? No free fluid ? US/US pelvis w/ transvaginal ?? IMPRESSION: ? 4.1 cm left ovarian cyst ? Electronically authenticated by: FLORESITA ??MILTON ?? Date: 05/21/2024 ??15:18 ? Dictated By: ?Floresita Rose M.D. ? Signed By: ?05/21/24 1520 ? DD/ 1518 ? TD/TT: ? Automobile Salesman: Procedure Note Radiology, Radiologist, - 05/21/2024 [place] [address] Ultrasound Report Signed Patient: YURI GALLAGHER LMR#: [id number] : 1970Acct:[id number] Age/Sex: 53 / FADM Date: 05/20/24 Loc: [facility] Attending Dr: Rosetta Torres D.O. Ordering Physician: Rosetta Torres D.O. Date of Service: 05/20/24 Procedure(s): US pelvis w/ transvaginal Accession Number(s): [id number] cc: Rosetta Torres D.O.; DANAY BLACKMON The [address] [place], [place] [address] Patient Name: YURI GALLAGHER MRN: [id number] date: 1970 Sex: F Assigned Patient [facility]: [facility] Current Patient Location: Accession/Order Number: [id number] Exam Date: 05/20/2024 10:58 Report Date: 05/21/2024 [...] M.D. Signed By:05/21/24 1520 DD/ 1518 TD/TT: Automobile Salesman: Authorizing ProviderResult TypeResult StatusCorejose maria Torres DOCLINISYNC IMAGINGFinal Result documented in this encounter Visit Diagnoses Not on filedocumented in this encounter Care Teams Team MemberRelationshipSpecialtyStart DateEnd Date Patience Jimenez MD [address] [place] [address] PCP - GeneralFamily Medicine03/16/23 González Mcallister DO [address] [facility] [address] [place] [address] PCP - Medical [place] [employer]07/10/1711documented as of this encounter
--- OUTSIDE RECORDS SUMMARY | 2025-05-17 08:14 | XMS_ITS | Clinical Summary ---
Author Organization [facility] Address [address] [place] [address] Care Team Providers Care Registered Pharmacist Name Role Phone Unavailable Primary Care Provider Unavailabl e Allergies No known active allergies Medications MedicationSigDispense QuantityRefillsLast FilledStart DateEnd DateStatus baclofen 10 mg tablet TAKE 1/2 TABLET BY MOUTH 3 TIMES A DAY03/07/2023ctive LORazepam (ATIVAN) 0.5 mg Take 0.5 mg by mouth.01/30/2023ctive aspirin, enteric coated (ASPIRIN, ENTERIC COATED) 81 mg EC tablet Take 81 mg by mouth.03/21/2024ctive busPIRone (BUSPAR) 5 mg tablet Take 5 mg by mouth.10/11/2023ctive pantoprazole DR (PROTONIX) 40 mg tablet Take 40 mg by mouth.03/22/2024ctive Social History Tobacco UseTypesPacks/DayYears UsedDateSmoking Tobacco: NeverSmokeless Tobacco: NeverAlcohol UseStandard Drinks/WeekCommentsNot Currently0 (1 standard drink = 0.6 oz pure alcohol)PHQ-2AnswerDate RecordedPHQ-2 tpkfo07307/14/2023rea Deprivation IndexAnswerDate RecordedNational Score (1-100), lower number is lower venp337703/14/2023State Score (1-10), lower number is lower anpe842 Data from: https://www.neighborhoodatlas.medicine.[facility].edu/. Last address used for [address] [address]regnantCommentsNoSex and Gender InformationValueDate RecordedSex Assigned at BirthNot on fileLegal SexFemale 03/10/2023 1:53 PM EDTGender IdentityNot on fileSexual OrientationNot on file Last Filed Vital Signs Vital SignReadingTime TakenCommentsBlood Dwpyuvrx941/8010 1:24 PM EDT Pofaj991004/10/2024 1:24 PM MVRUqxycxkcrjb45.8 ??C (98.2 ??F)04/10/2024 1:24 PM EDTRespiratory Rate--Oxygen Gehalziqjz06%04/10/2024 1:24 PM EDTInhaled Oxygen Concentration--Tplklv54 kg (141 lb 1.5 oz)05/14/2024 3:18 PM IEMThgoit264 cm (5' 3 )04/10/2024 1:24 PM EDTBody Mass Index24.9904/10/2024 1:24 PM EDT Plan of Treatment Health MaintenanceDue DateLast DoneCommentsAnxiety Makobqboi50/30/1989Depression Brppzpgnq27/30/1989HIV Cpnmcthjj74/30/1989Hepatitis C Ztragobqx77/30/1989 DTaP,Tdap,Td Vaccine (1 - Tdap)1989Hepatitis B Vaccine (1 of 3 - 19+ 3- dose series)1989Cervical Cancer Jkphzhxkx19/30/1992CT Colonography 12/07/20159011Gomrdvjrapb42/30/2016Fecal Occult Blood12/07/2015Lipid Screening 12/07/20153935Numiklveuzguf52/30/2016Pneumococcal Vaccine: 50+ (1 of 1 - PCV) 2020hingrix Vaccine (2 of 2)/Mammogram Screening /10/2022, 3Cologuard (FIT-DNA)/ Colorectal Cancer Kyxrmenlb69/15/2024Covid-19 Vaccine (2 - 2024- season) Influenza Vaccine (#1)2025Diabetes Jnorktlbq38/02/2027 04/10/2024, 01/30/2023 Procedures Procedure NamePriorityDate/TimeAssociated DiagnosisCommentsCOMPREHENSIVE METABOLIC GALRXKveugxk20/08/2023 2:21 PM EDT Abdominal pain, unspecified abdominal location from Last 3 Months or Most Recently Relevant to Health Maintenance Results * COMPREHENSIVE METABOLIC PANEL (04/10/2024 2:21 PM EDT)ComponentValueRef Range Test MethodAnalysis TimePerformed AtPathologist SignatureProtein, Total7.76.3 - 8.0 g/dL04/10/2024 10:53 PM [facility] LABAlbumin4.53.9 - 4.9 g/dL04/10/2024 10:53 PM [facility] LABCalcium, Total9.68.5 - 10.2 mg/dL04/10/2024 10:53 PM [facility] LABBilirubin, Total0.20.2 - 1.3 mg/dL04/10/2024 10:53 PM [facility] LABAlkaline Vnircqelcth5540 - 123 U/L1 10:53 PM EDT [facility] YOJGCP7369 - 35 U/L1 10:53 PM EDT [facility] YZNAYU368 - 38 U/L1 10:53 PM EDT [facility] ZUSDbsxsml7460 - 99 mg/dL04/10/2024 10:53 PM EDT [facility] LABComment: The [place] [employer] (ADA) provides guidance for cutoff values for fasting glucose andrandom glucose. The ADA defines fasting as no [...] Standards of Medical Care in Diabetes 2016, [place] [employer]. Diabetes Care. 2016.39(Suppl 1). KSU479 - 21 mg/dL04/10/2024 10:53 PM [facility] Creatinine0.780.58 - 0.96 mg/dL04/10/2024 10:53 PM [facility] HMTVohmgd304597 - 144 mmol/L1 10:53 PM [facility] LABPotassium4.53.7 - 5.1 mmol/L1 10:53 PM [facility] SKJFltbzjky32555 - 107 mmol/L1 10:53 PM [facility] MFGPL24441 - 30 mmol/L1 10:53 PM [facility] LABAnion Arl086 - 15 mmol/L1 10:53 PM [facility] LABEstimated Glomerular Filtration Rate91>=60 mL/min/1.73m 04/10/2024 10:53 PM [facility] LABComment:Estimated Glomerular Filtration Rate (eGFR) is calculated using the 2020 CKD-EPI creatinine equation. This equation utilizes serum creatinine, sex, and age as parameters. The creatinine assay has traceable calibration to isotope dilution- mass spectrometry. Refer to KDIGO guidelines for clinical interpretation. In patients with unstable renal function, e.g. those with acute kidney injury, the eGFRmay not accurately reflect actual GFR.Specimen (Source)Anatomical Location / LateralityCollection Method / VolumeCollection TimeReceived TimeBloodBLOOD SPECIMEN / UnknownVenipuncture / Enjeghf2404/10/2024 2:21 PM EDT1 2:22 PM EDT Narrative Authorizing ProviderResult TypeResult StatusBret Dora Beltran MDLABORATORYFinal ResultPerforming OrganizationAddressCity/State/ZIP CodePhone Number [facility] [address] [place] [address], from Last 3 Months or Most Recently Relevant to Health Maintenance Insurance
[2025-05-17 08:45] LABS: Hematocrit 40.7 % (36.0-48.0); Hemoglobin 13.7 g/dL (12.0-16.0); Immature Granulocytes Abs Auto 0.01 10^3/uL (0.00-0.03); Immature Granulocytes Pct Auto 0.2 % (0.0-0.5); Lymphocytes Absolute Auto 1.7 10^3/uL (1.2-3.8); Mean Corpuscular HGB Conc 33.7 g/dL (29.9-35.2); Mean Corpuscular Hemoglobin 30.9 pg (26.7-34.0); Mean Corpuscular Volume 91.9 fL (81.0-99.0); Platelet Count 250 10^3/uL (150-450); Red Blood Count 4.43 10^6/uL (4.20-5.40); White Blood Count 5.1 10^3/uL (4.0-11.0)
[2025-05-17 08:51] LABS: Alanine Aminotransferase 19 U/L (14-59); Albumin Globulin Ratio 1.0; Albumin Level 4.1 g/dL (3.4-5.0); Alkaline Phosphatase 79 U/L (46-116); Anion Gap 11.9; Aspartate Amino Transferase 22 U/L (15-37); Blood Urea Nitrogen 13.0 mg/dL (7.0-18.0); Calcium 9.1 mg/dL (8.5-10.1); Carbon Dioxide 27.3 mmol/L (21.0-32.0); Chloride 104 mmol/L (98-107); Estimated GFR (African America >60 (>=60 mL/min/1.73m^2); Estimated GFR (Non-African Ame >60 (>=60 mL/min/1.73m^2); Globulin 4.2 g/dL; Glucose 102 mg/dL (74-106); Potassium 4.2 mmol/L (3.5-5.1); Sodium 139 mmol/L (136-145); Total Protein 8.3 g/dL (6.4-8.2)
== END 2025-05-17 08:08 | disposition home or self-care (01) ==
PROVIDERS: PCP Nurse Practitioner Family; Visit Provider Nurse Practitioner Family
DX: Z01.818 Encounter for other preprocedural examination (principal)
CPT/HCPCS: 36415; 71046; 80053; 85025

== ENCOUNTER 2025-05-20 09:30 | Outpatient (OUT) | payer OTHER, SELFPAY ==
--- NOTE | 2025-05-20 09:13 | ECG_ITS ---
[facility] Test Date: 2025-05-20 Pat Name: YURI SMITH Department: Room: - Gender: Female Cloud Physicist: : [id number] Requested By: Genevieve Feng Order Number: [id number] Reading MD: KAREN TORRES M.D. Measurements Intervals Ramsey Rate: 72 P: 67 CT: 161 QRS: 68 QRSD: 97 T: 23 QT: 403 QTc: 441 Interpretive Statements SINUS RHYTHM NONSPECIFIC T-WAVE ABNORMALITY Compared to ECG 08/15/2024 14:42:09 Sinus bradycardia no longer present T-wave abnormality still present Electronically Signed On 05-20-2025 10:21:12 EST by KAREN TORRES M.D.
--- OUTSIDE RECORDS SUMMARY | 2025-05-27 04:38 | XMS_ITS | CCD ---
Author Organization [facility] Care Team Providers Care Residential Counselor Name Role Phone DR AGUSTIN MORTENSEN Primary Care Unavailable LAKSHMIPATHY ., NARENDRANATH Admitting Mariella vailable LAKSHMIPATHY ., NARENDRANATH Consulting Mariella vailable LAKSHMISHMIPATHY ., NARWILLAMATH Attending Mariella vailable LORRI BERRY Admitting Unavailable LORRI BERRY Attending Unavailable DR CHRISTINA ROBLERO Consulting Unavailable DR AGUSTIN MORTENSEN Primary Care Unavailable LORRI BERRY Consulting Unavailable Unavailable Primary Care Provider UnavailMD Agustin Ramirez Primary Care Provider MD Jose Gaudalupe Costa Attending Provider Unavailable DAGMAR Feng Attending Provider Unavailable Primary Care Provider Unavailfide reeves NO FAMILY, PHYSICIAN Primary Care Provider Unava ilable DAGMAR Feng Primary Care Provider MD Jose Guadalupe Costa Attending Provider Unavailable DO Lady Vásquez Attending Provider Agustin Mortensen MD Primary Care Provider Devin Kyle Referring Unavailable Devin Kyle Attending Unavailable MARSHA LANDA Attending Unavailable MARSHA LANDA Attending Unavailable Lashner, Kyle Referring Unavailable Lashner, Kyle Referring Unavailable ALINAHOTHHELDER MOHAMAD Attending Unavailable ALINAHOTHHELDER MOHAMAD Referring Unavailable ALINAHOTHANI MOHAMAD Attending Unavailable ALINAHOTHHELDER MOHAMAD Admitting Unavailable SREE DOUGLASSD Attending Unavailable Blanka Aguirre DO Unavailable Martín Torres DO Attending Provider Martín Torres [...] Agustin Mortensen MD Primary Care Provider Angelrbacheradha CAR PICK UP DRIVER, Genevieve Primary Care Provider Elisha CAR PICK UP DRIVERTeressa Quevedo Attending Provider Jung CAR PICK UP DRIVERGenevieve Quevedo Attending Provider MARTÍN TORRES Attending Unavailable LINDA CARRILLO Referring Unavailable SWETA ALANIZ Attending Unavailable LANDA, MARSAH Referring Unavailable GUNDLACH, BLANKA D Attending Unavailable [...] Inhibitor, Nonsteroidal Anti-inflammatory Drug Start: 03-21-2024 End: 34-62-2901nnjn 1 tablet by mouth once dailyAspirin (Adult Aspirin Regimen) 81 mg tablet,delayed release (DR/EC) Active 81 MG PO Daily March 20, 2024 11:00pm Complies with drug therapybusPIRone hydrochloride 10 mg oral tablet (20 sources)Start: 09-25-2024 End: 67-60-2549gqof 1 tablet by mouth twice dailyBuspirone 10 mg tablet Active 10 MG PO Twice daily 180 90 November 07, 2024 6:58am Anxiety Anxiety disorder, unspecified Complies with drug therapyStart: 05-01-2024 End: 86-48-4199Ynxlnibyv 5 mg tablet Discontinued 0 .ROUTE .COMPLEX 180 August 07, 2024 11:07am September 25, 2024 2:53pm Anxiety Anxiety disorder, unspecified TAKE 1 TABLET TWICE DAILYStart: 05-01-2024 End: 04-13-6663Jmajiknyp 5 mg tablet Discontinued 0 .ROUTE .COMPLEX 180 May 01, 2024 2:31pm August 07, 2024 12:07pm TAKE 1 TABLET TWICE DAILYStart: 05-01-2024 End: 82-52-4329Znmmdubsv 5 mg tablet Discontinued 0 .ROUTE .COMPLEX 180 May 01, 2024 1:31pm August 07, 2024 11:07am TAKE 1 TABLET TWICE DAILYStart: 05-02-7595Ltdnaihxf Active 0 .ROUTE .COMPLEX 180 May 01, 2024 2:31pm TAKE 1 TABLET TWICE DAILYStart: 09-14-2023 End: 59-39-7869xleq 1 tablet by mouth twice dailyBuspirone 5 mg tablet Discontinued 5 MG PO Twice daily 180 90 1 October 12, 2023 7:51am May 01, 2024 1:31pm Anxiety Anxiety disorder, unspecifiedcyclobenzaprine hydrochloride 10 mg oral tablet (3 sources)Muscle RelaxantStart: 03-16-2023 End: 42-82-4047jjfq 1 tablet by mouth three times daily as needed for muscle spasmscyclobenzaprine (Flexeril) 10 MG tablet Indications: Strain of lumbar region, initial encounter Take 1 tablet (10 mg) by mouth 3 (three) times a day as needed for muscle spasms for up to 10 days. 30 tablet 03/16/2023 03/05/2024 Discontinued (Other)enteric contrast (will be provided with radiology test) (2 sources)Start: 04-10-2024 End: 17-22-3628dmvhquv contrast (will be provided with radiology test) For CT ENTEROGRAPHY W IVCON order Administer, As Directed One Time Only, via Oral, Rectal, both Oral and Rectal, Enteric Tube, Stoma or Indwelling Catheter, Enteric Contrast as designated per enteric contrast guidelines. 1 Each 04/10/2024 04/11/2024 Dmcpya085 hr estradiol 0.35851 mg/hr transdermal system (20 sources)EstrogenStart: 02-20-2025 End: 69-67-4236edudnkjxw (Climara) 0.025 MG/24HR Indications: Postmenopausal HRT (hormone replacement therapy) Place 1 patch over 7 days on the skin 1 (one) time per week 12 patch 3 02/20/2025 02/20/2026 ActiveStart: 24-26-9262qzmbndvbt (Estrace) 0.1 MG/GM vaginal cream Indications: Postmenopausal HRT (hormone replacement therapy) 2g vaginal daily for 2 weeks, then 2 times weekly following initial 2 weeks 42.5 g 02/20/2025tiveStart: 04-19-2023 End: 41-03-2283uwjkqmgoq (Estrace) 0.5 MG tablet Indications: Vaginal dryness TAKE 1 TABLET DAILY 90 tablet 3 11/05/2024 02/20/2025 Discontinuedestrogens, conjugated (senior living) 0.625 mg/ml vaginal cream (3 sources)EstrogenStart: 04-20-2023 End: 07-12-8954Qfumnxykp Conjugated (Premarin) 0.625 MG/GM cream Indications: Dyspareunia in female 30 g 04/20/2023 03/05/2024 Discontinued (Other)iv contrast (will be provided with radiology test) (2 sources)Start: 04-10-2024 End: 04-10-0034xw contrast (will be provided with radiology test) [...] mg oral tablet (20 sources)BenzodiazepineStart: 04-03-2025 End: 67-44-5881npag 1 tablet by mouth every six hours for anxietyLORazepam (Ativan) 0.5 MG tablet Indications: Anxiety, generalized Take 1 tablet (0.5 mg) by mouth every 6 (six) hours if needed for anxiety for up to 10 days 15 tablet 04/03/2025 ActiveStart: 01-30-2023 End: 49-10-3115vxqg 1 tablet by mouth once daily as needed for anxietyLorazepam (Ativan) 0.5 mg tablet Active 0.5 MG PO Daily as needed for anxiety 15 15 0 September 14, 2023 12:00am Anxiety Anxiety disorder, unspecified Complies with drug therapy End: 60-10-2285iprs 1 tablet by mouth every six hours as neededLORazepam (Ativan) 0.5 MG tablet Take 0.5 mg by mouth every 6 (six) hours if needed 02/20/2025 DiscontinuedComment on above:Take 0.5 mg by mouth.24 hr metoprolol succinate 25 mg extended release oral tablet (5 sources)beta-Adrenergic BlockerStart: 03-18-2024 End: 19-98-0561rual 1 tablet by mouth every twenty-four hours in the morning metoprolol succinate XL (Toprol-XL) 25 MG 24 hr tablet Take 25 mg by mouth in the morning. 03/18/2024 05/13/2024 Discontinued (Other)predniSONE 50 mg oral tablet (1 source)Start: 03-16-2023 End: 86-76-3898dikygjGNKF (DELTASONE) 50 mg Take 50 mg by mouth. 0 03/16/2023 03/21/2023 ActiveComment on above:Take 50 mg by mouth.progesterone 100 mg oral capsule (7 sources)ProgesteroneStart: 02-20-2025 End: 06-75-4781tdhh 1 capsule by mouth once dailyprogesterone (Prometrium) 100 MG capsule Indications: Postmenopausal HRT (hormone replacement therapy) Take 1 capsule (100 mg) by mouth Daily 30 capsule 11 02/20/2025 02/20/2026 Active rosuvastatin calcium 20 mg oral tablet (5 sources)HMG-CoA Reductase InhibitorStart: 03-18-2024 End: 68-75-4008lvji 1 tablet by mouth in the morningrosuvastatin (Crestor) 20 MG tablet Take 20 mg by mouth in the morning. 03/18/2024 05/13/2024 Discontinued (Other)tretinoin 0.5 mg/ml topical cream (20 sources)RetinoidStart: 69-76-8701mfkxglxdz (Retin-A) 0.05 % cream Indications: Rhytides Apply 0.7 g to the face, once daily at evening/night time, 30 day supply 20 g 05/15/2025 ActiveStart: 10-26-2023 End: 13-55-5639Yvbnevyqx (Altreno) 0.05 % lotion Indications: Rhytides Apply thin layer to face at bedtime 45 g 02/20/2025 Discontinued Completed/Discontinued Medications MedicationDrug Class(es)DatesSig (Normalized)Sig (Original)baclofen 5 mg oral tablet (20 sources)gamma-Aminobutyric Acid-ergic AgonistStart: 05-01-2024 End: 74-56-8546rhqf 1 tablet by mouth three times dailyBaclofen 5 mg tablet Discontinued 5 MG PO Three times daily April 30, 2024 11:00pm September 25, 2 025 8:38amStart: 09-14-2023 End: 75-66-0587ppcx 1 tablet by mouth once dailyBaclofen 10 mg tablet Discontinued 10 MG PO Daily September 14, 2023 12:00am October 12, 2023 7:30amStart: 03-07-2023 End: 05-53-5779csqg 0.5 tablet by mouth three times dailybaclofen 10 mg tablet TAKE 1/2 TABLET BY MOUTH 3 TIMES A DAY 03/07/2023 ActiveComment on above:TAKE 1/2 TABLET BY MOUTH 3 TIMES A DAYfluconazole 150 mg oral tablet (7 sources)Azole AntifungalStart: 04-05-2024 End: 90-92-9232Dhgfolexpxd 150 mg tablet Discontinued 150 MG PO Daily 5 5 0 April 04, 2024 11:00pm May 01, 2024 8:03am Thrush Candidal stomatitis Take 1st dose at onset of symptoms then repeat in 3 daysif continued symptomspantoprazole 40 mg delayed release oral tablet (20 sources)Proton Pump InhibitorStart: 03-22-2024 End: 99-71-1796qvjd 1 tablet by mouth once dailyPantoprazole 40 mg tablet,delayed release (DR/EC) Discontinued 40 MG PO Daily 30 30 3 September 24, 2024 11:00pm September 25, 2024 2:34pmphenazopyridine hydrochloride 200 mg oral tablet (10 sources)Start: 04-02-2024 End: 31-00-7555grmj 1 tablet by mouth three times dailyPhenazopyridine (Pyridium) 200 mg tablet Discontinued 200 MG PO Three times daily 6 0 April 01, 2024 11:00pm May 01, 2024 8:04am Urinary tract infection Urinary tract infection, site not specifiedsulfamethoxazole 800 mg / trimethoprim 160 mg oral tablet (10 sources)Dihydrofolate Reductase Inhibitor Antibacterial, Sulfonamide AntimicrobialStart: 04-02-2024 End: 14-80-5242psje 1 tablet by mouth twice dailySulfamethoxazole-Trimethoprim (Bactrim Ds) 800-160 mg tablet Discontinued 1 TAB PO Twice daily 14 70 April 01, 2024 11:00pm May 01, 2024 8:04am Urinary tract infection Urinary tract infection, site not specified Problems Active Problems Problem ClassificationProblemDateDocumented DateEpisodic/ChronicAbdominal pain (20 sources)Abdominal pain; Translations: [Unspecified abdominal pain]Onset: 466956-25-5769JaxcfvvoDacgqec disorders (20 sources)Anxiety; Translations: [Anxiety disorder, unspecified]Onset: 975013-63-2845ZuzeuzfGvkumog and circulatory congenital anomalies (16 sources)Myocardial bridge of coronary artery; 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]84-58-9122SaydduxFenuobb dysrhythmias (20 sources)Palpitations; Translations: [Palpitations]69-37-0613Dksebrhr Complications of surgical procedures or medical care (2 sources)Postsurgical menopause; 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]76-49-0378BegvzimVtxmdjeqhz associated with dizziness or vertigo (20 sources)Dizziness; Translations: [Dizziness and giddiness]12-72-9537Uaafqbfp Esophageal disorders (2 sources)Gastroesophageal reflux disease; Translations: [Gastro-esophageal reflux disease without esophagitis]15-87-2113EzcjspkSahwbeludm disorders (4 sources)Postmenopausal state; Translations: [Hormone replacement therapy] 39-15-4322IdbqymwaXlpjayk (7 sources)Candidiasis of mouth; Translations: [Candidal stomatitis]04-05-2024 EpisodicNonspecific chest pain (20 sources)Tight chest; Translations: [Other chest pain]Onset: 03-04-2024 66-82-5097CyedlwqaZxcai aftercare (2 sources)Surgical follow-up; Translations: [Encounter for follow-up examination after completed treatment for conditions other than malignant neoplasm]48-21-2792CaiugqypYcslm and unspecified benign neoplasm (1 source)Melanocytic nevus of lower limb; Translations: [Melanocytic nevi of unspecified lower limb, including hip]03-80-9551JlhazmwjJjfif and unspecified benign neoplasm (1 source)Melanocytic nevus of trunk; Translations: [Melanocytic nevi of trunk] 81-96-7775TutqyioiFggtl connective tissue disease (3 sources)Pain in right leg; Translations: [PAIN IN RIGHT LEG]Onset: 10-20-2022 EpisodicOther connective tissue disease (1 source)Pain in right lower limb; Translations: [Pain in right leg]06-21-2023 EpisodicOther endocrine disorders (2 sources)Disorder of endocrine system; Translations: [Endocrine disorder, unspecified]18-27-3188UnaiakawOaizm gastrointestinal disorders (12 sources)Abdominal bloating; Translations: [Abdominal distension (gaseous)] 22-89-2795RawnvhtdSnumc gastrointestinal disorders (8 sources)Abdominal distension (gaseous); Translations: [Flatulence, eructation, and gas pain]32-97-4113QxrcnrtmVdxmr inflammatory condition of skin (1 source)Rosacea; Translations: [Other rosacea]09-29-5948SofzunpRxsnv nervous system disorders (1 source)Right-sided piriformis syndrome; Translations: [Lesion of sciatic nerve, right lower limb]28-80-1112BxkyapaPviou nervous system disorders (1 source)Paresthesia of lower extremity; Translations: [Anesthesia of skin] 07-52-0174DoxhidbiUukpn non-traumatic joint disorders (4 sources)Pain in right ankle and joints of right foot; Translations: [PAIN IN RIGHT ANKLE]Onset: 83-74-8326CfjaegfqPttvt screening for suspected conditions (not mental disorders or infectious disease) (18 sources)Encounter for screening for lipoid disorders; Translations: [Screening for lipoid disorders]Onset: 979581-54-6049RksrrcdqTfghc skin disorders (1 source)Lentiginosis; Translations: [Other melanin hyperpigmentation] 75-29-5494GpichfdqFymlr skin disorders (1 source)Seborrheic keratosis; Translations: [Other seborrheic keratosis] 09-06-3125ZbsfitwlNmomh skin disorders (1 source)Idiopathic guttate hypomelanosis; Translations: [Other specified disorders of pigmentation]44-37-3845AenunaepOzksu skin disorders (1 source)Wrinkled skin; Translations: [Other specified disorders of the skin and subcutaneous tissue]50-01-3819ZjrkayjvLrugf skin disorders (2 sources)Inflamed seborrheic keratosis; Translations: [Inflamed seborrheic keratosis]08-17-9143WuhnicaeAmhsuija codes; unclassified (20 sources)Patient encounter status; Translations: [Encounter for cosmetic surgery]Onset: 453383-36-8021GkupgtirNfvcahlq codes; unclassified (13 sources)Family history of cardiovascular disease in first degree male relative less than 55 years of age; Translations: [Family history of ischemic heart disease and other diseases of the circulatory system]95-05-0013Kdfpvytm Residual codes; unclassified (9 sources)Family history of ischemic heart disease and other diseases of the circulatory system; Translations: [Family history of other cardiovascular diseases]18-18-1196WrcyhmbgXlgailenzsf; intervertebral disc disorders; other back problems (20 sources)Thoracic spondylosis; Translations: [Spondylosis without myelopathy or radiculopathy, thoracic region]39-91-7858FfjkaboPuigphf tract infections (17 sources)Urinary tract infectious disease; Translations: [Urinary tract infection, site not specified]Onset: 561766-68-7459Ntrlzfsz Past or Other Problems Problem ClassificationProblemDateDocumented DateEpisodic/Chronic Administrative/social admission (2 sources)Follow-up status; Translations: [Person consulting for explanation of examination or test findings]72-98-3213SjmajimpVrwdk female genital disorders (3 sources)Pain in female pelvis; Translations: [Pelvic pain in female]Onset: 036972-65-7279BkisfbpmPkgsdtx cyst (20 sources)Complex ovarian cyst; Translations: [Other ovarian cyst, unspecified side]Onset: 490261-49-5288XzgslzpsVjzmsoefgyn; intervertebral disc disorders; other back problems (20 sources)Radiculopathy, lumbar region; Translations: [Pain in thoracic spine] Onset: 981556-95-4888Mibkrwjf Results Test NameValueInterpretationReference RangeFacilityCryotherapy, skin lesionon 42-04-0048PRNX HealthcareNOJefferson Memorial HospitalOH TESTOSTERONE FREE/TOT EQUILIBon 43-81-2846FSON TESTOSTERONE(DIRECT)1.1 pg/mL0.0 - 4.2 pg/mLNCenterpoint Medical Center Comment on above:Performed at: [facility] Lab[address] [id number] Sales Superintendent: Kiko Mendoza PhD, Phone: [phone] Performed at: [address] [id number] Sales Superintendent: Katharina Wylie MD, Phone: [phone] Testosterone [Mass/Vol]27 ng/dL4 - 50 ng/dLCASTLEVIEW HOSPITAL HealthcareCLINISYNCNOMS HealthcareFree testosterone measurement by LC-MS/MSOrdered By: Teressa Tello on 49-15-5048Vdauallbfcsa Free [Mass/Vol]1.1 pg/mL0.0-4.2FWilson HealthComment on above:Performed at: - [facility] [id number] Director: Kiko Mendoza PhD, Phone: [phone] at: [facility] [id number] Director: Katharina Wylie MD, Phone: [phone] Panel Information Ordered By: Teressa Tello on 52-08-5614Nylktsnytexj Level27 ng/dL4-50Nor[facility] HospitalALL CBC WITH AUTO DIFFon 35-19-5980ICAXDTLGX ABSOLUTE GTMN4ZZOK HealthcareBasophils/100 WBC (Bld)0.8 %0.2 - 2.0 %NOMS Healthcare Eosinophils/100 WBC (Bld)2.1 %0.9 - 7.0 %NOM HealthcareErythrocyte distribution width (RBC) [Ratio]12.2 %11.0 - 15.0 %NOMS HealthcareHematocrit (Bld) [Volume fraction]39.4 %36.0 - 48.0 %[facility] HealthcareHemoglobin (Bld) [Mass/Vol]13.3 g/dL 12.0 - 16.0 g/dLNOHawthorn Children's Psychiatric HospitalIMMATURE GRANULOCYTES ABS FQQP9SBEI Healthcare Immature granulocytes/100 WBC (Bld)0 %0.0 - 0.5 %NOMS HealthcareLYMPHOCYTES ABSOLUTE AUTO1.6NOMS HealthcareLymphocytes/100 WBC (Bld)33.4 %20.5 - 60.0 %[facility] HospitalMCH (RBC) [Entitic mass]31.2 pg26.7 - 34.0 pgNOMS [facility] HospitalHC (RBC) [Mass/Vol]33.8 g/dL29.9 - 35.2 g/dLNOMS HealthcareMCV (RBC) [Entitic vol]92.5 fL 81.0 - 99.0 fLRay County Memorial HospitalMONOCYTES ABSOLUTE AUTO0.4NOHawthorn Children's Psychiatric Hospital Monocytes/100 WBC (Bld)8.7 %1.7 - 12.0 %[facility] HospitalNEUTROPHILS ABSOLUTE AUTO 2.7NOMS HealthcareNeutrophils/100 WBC (Bld)55 %43.0 - 75.0 %[facility] Platelet mean volume (Bld) [Entitic vol]9.7 fL9.5 - 13.5 fLRay County Memorial HospitalTBH EO #0.1NOMS HealthcareTBH [id number] Children's Psychiatric HospitalTB RBC4.26NOHawthorn Children's Psychiatric HospitalTB WBC4.8 [facility] HospitalCLINISYNCNCenterpoint Medical CenterBasophils Auto (Bld) [#/Vol]on 08-30-2024 Basophils (Bld) [#/Vol]Automated basophil count0.0-0.1FWilson HealthBasophils/100 WBC Auto (Bld)on 72-27-9941Gwaflbuqx/100 WBC (Bld)Automated basophil %0.2-2.0[facility] HospitalEosinophils/100 WBC Auto (Bld)on 44-29-4118Udmdryiqgcn/100 WBC (Bld)Automated eosinophil %0.9-7.0 [facility] HospitalErythrocyte distribution width Auto (RBC) [Ratio]on 12-58-7167Gxjabtffexv distribution width (RBC) [Ratio]Erythrocyte distribution width [Ratio] by Automated count11.0-15.0[facility] HospitalHematocrit Auto (Bld) [Volume fraction]on 81-64-2010Anqdskhefr (Bld) [Volume fraction]Hematocrit [Volume Fraction] of Blood by Automated count 36.0-48.0[facility] Memorial HospitalHemoglobin [Mass/volume] in Bloodon 99-93-8454Gwwewzpkbm (Bld) [Mass/Vol]Hemoglobin [Mass/volume] in Blood12.0-16.0 [facility]walk Memorial HospitalLon 08-30-2024L Specimen: [id number] Received: 08/30/24 Status: YUDYJose Juan Hobbs Num: [id number] Spec Type: Surgical Subm Dr: Martín Torres Tissues: A Fallopian Tube - Sterilization (BILATERAL FALLOPIAN TUBES) B Ovary - Cyst, Non-Neoplastic (LEFT OVARY) Procedures: HE/6, Gross/Micro L4, Gross/Micro L2 Age/ Patient Sex Location Account Attending Physician Yuri Gallagher 53/F LABELL [id number] Martín Torres SPEC NUM: [id number] RECD: 08/30/24 STATUS: BRANDY HOBBS NUM: [id number] DEANDRE: 08/30/24-1001 SUBM : Martín Torres ENTERED: 08/30/24-[address] [facility] [address]: Nguyễn,Lab SPEC TYPE: Surgical DEPT: AKILAH DE LA CRUZ ENTERED BY: [id number] RECV BY: [id number] ORDERED: HE/6, Gross/Micro L4, Gross/Micro L2 ORDERED: [...] A1 Entirety of trisected fimbriated end and veterans employment representative cross-sections from shorter tube A2 Entirety of trisected fimbriated end and veterans employment representative cross-sections from longer tube (2, ss, GR83-282 A)J Part B is received in formalin labeled with the patients name, date of , and left ovary is a 4.1 g, collapsed cystic ovary, 3.5 x 2.5 x 1.5 cm. The capsular surface is calabrese- pink to fong-purple, ranging from smooth and glistening to bosselated. Serial sections Specimen: [id number] Received: 08/30/24 Status: BRANDY Hobbs Num: [id number] Spec Type: Surgical Subm Dr: Martín Torres Tissues: A Fallopian Tube - Sterilization (BILATERAL FALLOPIAN TUBES) B Ovary - Cyst, Non-Neoplastic (LEFT OVARY) Procedures: HE/6, Gross/Micro L4, Gross/Micro L2 Patient: Yuri Gallagher [id number] (Continued) Specimen: [id number] Received: 08/30/24 (Continued) Gross Description (Continued) Signed (signature on file) Rox Jorge MD 09/02/24 1640 Specimen: [id number] Received: 08/30/24 Status: BRANDY Hobbs Num: [id number] Spec Type: Surgical Subm Dr: Martín Torres Tissues: A Fallopian Tube - Sterilization (BILATERAL FALLOPIAN TUBES) B Ovary - Cyst, Non-Neoplastic (LEFT OVARY) Procedures: HE/6, Gross/Micro L4, Gross/Micro L2 Patient: Yuri Gallagher [id number] (Continued) Specimen: [id number] Received: 08/30/24 (Continued) Gross Description (Continued) reveal a unilocular, smooth lined cystic cavity, 3 cm in greatest dimension. The remaining ovarian parenchyma is calabrese-pink to yellow with focal simple cysts. No papillations or excrescences are identified. The specimen is entirely submitted in B1?B4. (4, ns, [id number] B) CPT Codes 49352 94225 Specimen: [id number] Received: 08/30/24 Status: BRANDY Hobbs Num: [id number] Spec Type: Surgical Subm Dr: Martín Torres Tissues: A Fallopian Tube - Sterilization (BILATERAL FALLOPIAN TUBES) B Ovary - Cyst, Non-Neoplastic (LEFT OVARY) Procedures: HE/6, Gross/Micro L4, Gross/Micro L2 Patient: Yuri Gallagher [id number] (Continued) Signed (signature on file) Rox Jorge MD 09/02/[address] [place] [address] Physician GroupLaboratory - Hematology and Cell countson 43-59-6603Rocqhgty granulocytes/100 WBC (Bld)0.0 %0.0-0.5FWilson HealthLeukocytes [#/volume] corrected for nucleated erythrocytes in Blood by Automated counon 80-03-8794TFL corrected for nucl RBC Auto (Bld) [#/Vol]Leukocytes [#/volume] corrected for nucleated erythrocytes in Blood by Automated coun4.0-11.0[facility] HospitalLymphocytes Auto (Bld) [#/Vol]on 94-11-5916Qqdfgsqnhcw (Bld) [#/Vol]Lymphocytes [#/volume] in Blood by Automated count1.2-3.8[facility] HospitalLymphocytes/100 WBC Auto (Bld)on 18-47-3185Hubnossotji/100 WBC (Bld)Lymphocytes/100 leukocytes in Blood by Automated count20.5-60.0[facility] Auto (RBC) [Entitic mass]on 09-30-2172QUZ (RBC) [Entitic mass]MCH [Entitic mass] by Automated count26.7-34.0[facility] Auto (RBC) [Mass/Vol]on 50-93-5251BAKV (RBC) [Mass/Vol]MCHC [Mass/volume] by Automated count29.9-35.2FWilson HealthMCV Auto (RBC) [Entitic vol]on 07-98-7662DND (RBC) [Entitic vol]MCV [Entitic volume] by Automated count 81.0-99.0[facility] HospitalMonocytes Auto (Bld) [#/Vol]on 66-32-1988Xrfyrfwaj (Bld) [#/Vol]Automated blood monocyte count0.3-0.8[facility] HospitalMonocytes/100 WBC Auto (Bld)on 47-93-2604Zeykabyqp/100 WBC (Bld)Automated monocyte %1.7-12.0[facility] Neutrophils Auto (Bld) [#/Vol]on 97-61-8586Fghtgmmhhqb (Bld) [#/Vol]Neutrophils [#/volume] in Blood by Automated count1.4-6.5FWilson Health Neutrophils/100 WBC Auto (Bld)on 61-63-9652Fxhfqyrgbjh/100 WBC (Bld)Automated neutrophil %43.0-75.0[facility] HospitalNo Panel Informationon 50-15-7978Reynhpkimhz # (Auto)0.1 10 3/uL0.0-0.7FWilson HealthImmature Granulocyte # (Auto)0.00 10 3/uL0.00-0.03[facility] HospitalPlatelet mean volume Auto (Bld) [Entitic vol]on 11-39-5231Mrxmrnbi mean volume (Bld) [Entitic vol]Platelet mean volume [Entitic volume] in Blood by Automated count9.5-13.5FWilson HealthPlatelets Auto (Bld) [#/Vol]on 81-67-1801Grpvbvgei (Bld) [#/Vol]Platelets [#/volume] in Blood by Automated nunyq843-870GnpaismjnNorwalk Memorial HospitalRBC Auto (Bld) [#/Vol]on 47-80-6278LQL (Bld) [#/Vol]Erythrocytes [#/volume] in Blood by Automated count 4.20-5.40[facility] HospitalALL CBC WITH AUTO DIFFon 08-15-2024 BASOPHILS ABSOLUTE JIGL9ARDB HealthcareBasophils/100 WBC (Bld)0.6 %0.2 - 2.0 % NOMScotland County Memorial HospitalEosinophils/100 WBC (Bld)1 %0.9 - 7.0 %[facility] HospitalErythrocyte distribution width (RBC) [Ratio]12.1 %11.0 - 15.0 %[facility] Memorial HospitalHematocrit (Bld) [Volume fraction]39.4 %36.0 - 48.0 %[facility] Memorial HospitalHemoglobin (Bld) [Mass/Vol]13.2 g/dL12.0 - 16.0 g/dLRay County Memorial HospitalIMMATURE GRANULOCYTES ABS AUTO 0.01NOMS HealthcareImmature granulocytes/100 WBC (Bld)0.1 %0.0 - 0.5 %[facility] HospitalLYMPHOCYTES ABSOLUTE AUTO1.8NOMS HealthcareLymphocytes/100 WBC (Bld) 25.5 %20.5 - 60.0 %[facility] HospitalH (RBC) [Entitic mass]31.1 pg26.7 - 34.0 pg [facility] HospitalMCHC (RBC) [Mass/Vol]33.5 g/dL29.9 - 35.2 g/dLRay County Memorial HospitalMCV (RBC) [Entitic vol]92.7 fL81.0 - 99.0 fLRay County Memorial HospitalMONOCYTES ABSOLUTE AUTO 0.5NOMS HealthcareMonocytes/100 WBC (Bld)6.8 %1.7 - 12.0 %[facility] NEUTROPHILS ABSOLUTE AUTO4.7NOHawthorn Children's Psychiatric HospitalNeutrophils/100 WBC (Bld)66 %43.0 - 75.0 %[facility] HospitalPlatelet mean volume (Bld) [Entitic vol]10 fL9.5 - 13.5 fL [facility] HospitalTBH EO #0.1NOMS HealthcareTB [id number] [facility] HospitalTB RBC4.25 [facility] WBC7.1NOMS HealthcareCLINISYNCNCEDAR RIDGE HOSPITAL – [place] HealthcareActivated partial thromboplastin time (aPTT) in platelet poor plasma by coagulation aon 71-88-8557rRKW Coag (PPP) [Time]Activated partial thromboplastin time (aPTT) in platelet poor plasma by coagulation a22.3-36.2FWilson Health Basophils Auto (Bld) [#/Vol]on 86-90-0239Nmscmhnou (Bld) [#/Vol]Automated basophil count0.0-0.1FWilson HealthBasophils/100 WBC Auto (Bld)on 98-35-7208Lqpycqvph/100 WBC (Bld)Automated basophil %0.2-2.0[facility] HospitalECG 12-LEADon 05-82-3932[place] [address] Electrocardiograph Report Signed Patient: YURI GALLAGHER MR#: [id number] : 1970 Acct:[id number] Age/Sex: 53 / F ADM Date: 08/15/24 Loc: [facility] Attending Dr: Martín Torres D.O. Ordering Physician: Martín Torres D.O. Date of Service: 08/15/24 Procedure(s): ECG 12 lead Accession Number(s): [id number] cc: [facility] Test Date: 2024-08-15 Pat Name: YURI GALLAGHER Department: Room: - Gender: Female Speech Scientist: : 1970 Requested By: MARTÍN TORRES Order Number: [id number] Reading MD: SANDEEP OBRIEN Measurements Intervals [place] Rate: 59 P: 53 DC: 155 QRS: 22 QRSD: 99 T: 31 QT: 419 QTc: 418 Interpretive Statements SINUS BRADYCARDIA POSSIBLE RIGHT VENTRICULAR CONDUCTION DELAY [RSR (QR) IN V1/V2] NONSPECIFIC T-WAVE ABNORMALITY No previous ECG available for comparison Electronically Signed On 08-15-2024 20:18:33 EST by SANDEEP OBRIEN Dictated By: Sandeep Obrien D.O. Signed By: 08/15/242018 DD/ 41 TD/TT: Balloon Tester:TBHRadiology, Radiologist, - 08/15/2024 [place] [address] Electrocardiograph Report Signed Patient: YURI GALLAGHER MR#: [id number] : 1970 Acct:[id number] Age/Sex: 53 / F ADM Date: 08/15/24 Loc: PST Attending Dr: Martín Torres D.O. Ordering Physician: Martín Torres D.O. Date of Service: 08/15/24 Procedure(s): ECG 12 lead Accession Number(s): [id number] cc: [facility] Test Date: 2024-08-15 Pat Name: YURI GALLAGHER Department: Room: - Gender: Female Speech Scientist: : 1970 Requested By: MARTÍN TORRES Order Number: [id number] Reading MD: SANDEEP OBRIEN Measurements Intervals [place] Rate: 59 P: 53 DC: 155 QRS: 22 QRSD: 99 T: 31 QT: 419 QTc: 418 Interpretive Statements SINUS BRADYCARDIA POSSIBLE RIGHT VENTRICULAR CONDUCTION DELAY [RSR (QR) IN V1/V2] NONSPECIFIC T-WAVE ABNORMALITY No previous ECG available for comparison Electronically Signed On 08-15-2024 20:18:33 EST by SANDEEP OBRIEN Dictated By: Sandeep Obrien D.O. Signed By: 08/15/242018 DD/ 1442 TD/TT: Balloon Tester: REYES HealthcareRadiology Study observation (narrative)[facility] HealthcareECG 12-LEAD Ordered By: Radiologist Radiology on 55-93-9550ZSFW Healthcare Work Phone: Eosinophils/100 WBC Auto (Bld)on 08-15-2024 Eosinophils/100 WBC (Bld)Automated eosinophil %0.9-7.0[facility] HospitalErythrocyte distribution width Auto (RBC) [Ratio]on 66-05-0799Hmfjotppdxe distribution width (RBC) [Ratio]Erythrocyte distribution width [Ratio] by Automated count11.0-15.0[facility] HospitalEstimated glomerular filtration rate (GFR) non- Americanon 46-08-3361YPW/1.73 sq M.predicted among non-blacks MDRD (S/P/Bld) [Vol rate/Area]Estimated glomerular filtration rate (GFR) non->=60 mL/min/1.73m 2FWilson HealthHematocrit Auto (Bld) [Volume fraction]on 88-82-7110Ticvdiddbm (Bld) [Volume fraction]Hematocrit [Volume Fraction] of Blood by Automated count 36.0-48.0[facility] HospitalHemoglobin [Mass/volume] in Bloodon 92-34-6864Rrtaxahslt (Bld) [Mass/Vol]Hemoglobin [Mass/volume] in Blood12.0-16.0 [facility] HospitalINR in Platelet poor plasma by Coagulation assayon 01-38-4272GKH Coag (PPP) [Relative time]INR in Platelet poor plasma by Coagulation assayNorwalk Memorial HospitalComment on above:DESIRED INR:2.0-3.0 CONDITIONS NOT LISTED BELOW2.5-3.5 FOR PROSTHETIC HEART VALVE REPLACEMENT2.5-3.5 RECURRENT THROMBOSISLaboratory - Chemistry and Chemistry - challengeon 17-78-3502Qduhaak [Mass/Vol]8.8 mg/dL8.5-10.1FWilson HealthChloride [Moles/Vol]102 mmol/B29-875LkqvpjbguNorwalk Memorial HospitalCO2 [Moles/Vol]32.8 mmol/LHigh21.0-32.0[facility] Creatinine [Mass/Vol]0.83 mg/dL0.55-1.02[facility] GFR/1.73 sq M.predicted MDRD (S/P/Bld) [Vol rate/Area]mL/min/{1.73_m2}>=60 mL/min/1.73m 2FWilson HealthGlucose [Mass/Vol]91 mg/fO14-296 [facility] HospitalPotassium [Moles/Vol]4.1 mmol/L3.5-5.1FLakeHealth TriPoint Medical Centerodium [Moles/Vol]142 mmol/U590-329NvjhstrfqNorwalk Memorial HospitalUrea nitrogen [Mass/Vol]15.0 mg/dL7.0-18.0[facility] HospitalUrea nitrogen/Creatinine [Mass ratio]18.1 mg/mgNorwalk Memorial HospitalLaboratory - Hematology and Cell countson 69-23-9567Qpvcboeo granulocytes/100 WBC (Bld)0.1 %0.0-0.5FWilson Health Leukocytes [#/volume] corrected for nucleated erythrocytes in Blood by Automated counon 58-56-9969IOJ corrected for nucl RBC Auto (Bld) [#/Vol]Leukocytes [#/volume] corrected for nucleated erythrocytes in Blood by Automated coun 4.0-11.0[facility] HospitalLymphocytes Auto (Bld) [#/Vol]on 66-83-8836Alaefdrpiwu (Bld) [#/Vol]Lymphocytes [#/volume] in Blood by Automated count1.2-3.8[facility] HospitalLymphocytes/100 WBC Auto (Bld)on 31-82-4302Jptgxzdihbh/100 WBC (Bld)Lymphocytes/100 leukocytes in Blood by Automated count20.5-60.0[facility] Hospital DaytonH Auto (RBC) [Entitic mass]on 06-48-0839UFN (RBC) [Entitic mass]MCH [Entitic mass] by Automated count 26.7-34.0[facility] HospitalMCHC Auto (RBC) [Mass/Vol]on 04-36-4319CRVT (RBC) [Mass/Vol]MCHC [Mass/volume] by Automated count29.9-35.2 [facility] HospitalMCV Auto (RBC) [Entitic vol]on 10-92-4976KMN (RBC) [Entitic vol]MCV [Entitic volume] by Automated count81.0-99.0[facility] HospitalMonocytes Auto (Bld) [#/Vol]on 87-01-0863Wgsubxmwm (Bld) [#/Vol]Automated blood monocyte count0.3-0.8[facility] Monocytes/100 WBC Auto (Bld)on 69-81-1917Nzkpbxvaf/100 WBC (Bld)Automated monocyte %1.7-12.0[facility] HospitalNeutrophils Auto (Bld) [#/Vol]on 30-72-6926Nqmwjmklrzx (Bld) [#/Vol]Neutrophils [#/volume] in Blood by Automated count1.4-6.5FWilson HealthNeutrophils/100 WBC Auto (Bld)on 97-74-2954Jbjuslutuzt/100 WBC (Bld)Automated neutrophil %43.0-75.0 [facility] HospitalNo Panel Informationon 88-15-1623Leienofrwvg # (Auto)0.1 10 3/uL0.0-0.7FWilson HealthImmature Granulocyte # (Auto)0.01 10 3/uL0.00-0.03[facility] HospitalPlatelet mean volume Auto (Bld) [Entitic vol]on 36-87-8395Yydxdzih mean volume (Bld) [Entitic vol] Platelet mean volume [Entitic volume] in Blood by Automated count9.5-13.5 [facility] HospitalPlatelets Auto (Bld) [#/Vol]on 08-15-2024 Platelets (Bld) [#/Vol]Platelets [#/volume] in Blood by Automated nxoeb605-189 [facility] HospitalProthrombin time (PT)on 97-26-3106GZ Coag (PPP) [Time]Prothrombin time (PT)9.0-11.6FWilson HealthRBC Auto (Bld) [#/Vol]on 63-58-4414XQG (Bld) [#/Vol]Erythrocytes [#/volume] in Blood by Automated count4.20-5.40[facility] Regional Medical Centererum or plasma anion gap determinationon 33-16-7974Qflrv gap [Moles/Vol]Serum or plasma anion gap determinationNorwalk Memorial HospitalXR CHEST 2Von 81-18-0495[place] [address] XRay Report Signed Patient: YURI GALLAGHER MR#: [id number] : 1970 Acct:[id number] Age/Sex: 53 / F ADM Date: 08/15/24 Loc: PST Attending Dr: Martín Torres D.O. Ordering Physician: Martín Torres D.O. Date of Service: 08/15/24 Procedure(s): XR chest 2V Accession Number(s): [id number] cc: Martín Torres D.O.; GENEVIEVE FENG [place] [id number] Patient Name: YURI GALLAGHER MRN: [id number] date: 1970 Sex: F Assigned Patient Location: [facility] Accession/Order Number: [id number] Exam Date: 08/15/2024 14:45 Report Date: 08/15/2024 [...] Signed By: 08/15/24 1531 DD/ 1528 TD/TT: Balloon Tester:TBHRadiology, Radiologist, - 08/15/2024 [place] [address] XRay Report Signed Patient: YURI GALLAGHER MR#: [id number] : 1970 Acct:[id number] Age/Sex: 53 / F ADM Date: 08/15/24 Loc: [facility] Attending Dr: Martín Torres D.O. Ordering Physician: Martín Torres D.O. Date of Service: 08/15/24 Procedure(s): XR chest 2V Accession Number(s): [id number] cc: Martín Torres D.O.; GENEVIEVE FENG [address] [address] Patient Name: YURI GALLAGHER MRN: [id number] date: 1970 Sex: F Assigned Patient Location: [facility] Accession/Order Number: [id number] Exam Date: 08/15/2024 14:45 Report Date: 08/15/2024 [...] Signed By: 08/15/24 1531 DD/ 1528 TD/TT: Balloon Tester: REYES [facility] HospitalRadiology Study observation (narrative)[facility] [employer]XR CHEST 2V Ordered By: Radiologist Radiology on 53-76-6610UTQN [employer] Work Phone: bi MAMMOGRAM SCREENING TOMOSYNTHESIS BILATERALon 04-12-8391GZ MAMMOGRAM SCREENING TOMOSYNTHESIS BILATERALThis is a summary [...] Guajardo M.D.NormalNot AvailableUS PELVIC COMPLETE W/ TVon 84-88-3134NW PELVIC COMPLETE W/ TVEXAM: Pelvic Ultrasound, Transabdominal [...] report is generated using voice recognition reporting ([employer]). On occasion, Atlas Spinee erroneously drops words from the report or replaces the spoken word with a similar sounding word. Please call with any questions/concerns regarding the report. Dictated and transcribed 08/01/2024/daniel This report has been electronically signed and approved by the interpreting radiologist.NormalNot AvailableComment on above:Order Comment: US PELVIS- TRANSVAG IF INDICATED No LMP recorded (lmp unknown). Patient has had a hysterectomy.ALL LDHon 16-95-9855QRX [Catalytic activity/Vol]178 U/L81 - 234 U/LNSt. Joseph's Regional Medical Center– MilwaukeeBeta-human chorionic gonadotropin (BhCG) detectionon 23-15-1264RLJ.beta subunit Ql (Unsp spec)Beta-human chorionic gonadotropin (BhCG) detection.[facility]walk Memorial HospitalComment on above:Female (Non- ) 0 - 5 [...] was developed and its performancecharacteristics determined by [employer]. It has not beencleared or approved by the Food and Drug Administrationfor use as a tumor marker.Thistest is not interpretable as a tumor marker in females.Performed at: [employer] [id number] Director: Kiko Mendoza PhD, Phone: [phone] - Chemistry and Chemistry - challengeon 59-49-9614BXL [Catalytic activity/Vol]178 U/Z77-128ZjviaisadTrumbull Regional Medical Centererum or plasma mnwaa-6-kundjwbubtv tumor marker measurement (mass/volume)on 14-05-8044FFF.tumor marker [Mass/Vol] Serum or plasma swbat-0-ymxrtvutgai tumor marker measurement (mass/volume) 0.0-9.2FWilson HealthComment on above:[employer] Electrochemiluminescence Immunoassay(ECLIA)Values obtained with different assay methods or kits cannotbe used interchangeably. Results cannot be interpreted asabsolute evidence of the presence or absence of malignantdisease.This test is not interpretable in females.Serum or plasma cancer antigen 125 (CA- 125) measurement (units/volume)on 32-13-2149Ukkzoy Ag 125 QnSerum or plasma cancer antigen 125 (CA-125) measurement (units/volume)0.0-38.1FWilson HealthComment on above:[employer] Electrochemiluminescence Immunoassay(ECLIA)Values obtained with different assay methods or kits cannotbe used interchangeably. Results cannot be interpreted asabsolute evidence of the presence or absence of malignantdisease.Performed at: [employer] [id number] Director: Kiko Mendoza PhD, Phone: [phone],APTIMA HPV,AGE GDLNon 18-85-1373PPT GDLN ACOG TESTINGNote.NOMS HealthcareComment on above:TESTS RESULT FLAG UNITS REF RANGE LAB Clinician Provided Cytology Information Source.............Vagina No. of containers..01 ThinPrep Vial Age Priscilla GUTIERREZ Jeanna... 30 FLAG LEGEND: L-Low Normal,H-High Normal,LL-Alert Low,HH-Alert High <-Panic Low,>-Panic High,A-Abnormal,AA-Critical Abnormal Performed at: 01 =[address] [address] Yvette Smart MD, HPV APTIMANegativeNegativeNOMS HealthcareComment on above:This nucleic acid amplification test detects fourteen high- risk HPV types (16,18,31,33,35,39,45,51,52,56,58,59,66,68) without differentiation. Performed at: =[address] [id number] Sales Superintendent: Yvette Smart MD, Phone: [phone] Performed at: [address] [id number] Sales Superintendent: Yvette Smart MD, Phone: [phone] IGP, APTIMA HPV, RFX 16/18,45Note.NOMS HealthcareComment on above:TESTS RESULT FLAG UNITS REF RANGE LAB DIAGNOSIS: 02 NEGATIVE FOR INTRAEPITHELIAL LESION OR MALIGNANCY. Specimen adequacy: 02 Satisfactory for evaluation. No endocervical component is identified. Performed by: 02 Nancy Ramirez Biomedical Engineering Technician (ASCP) . 02 Note: Note 02 The [...] <-Panic Low,>-Panic High,A-Abnormal,AA-Critical Abnormal Performed at: [address] [address] Yvette Smart MD, SPATULA-ALONE VAGINA CLINISYNCNOMS HealthcareUS PELVIS W/ TRANSVAGINALon 84-47-3371E[address] [address] Ultrasound Report Signed Patient: YURI GALLAGHER MR#: [id number] : 1970 Acct:[id number] Age/Sex: 53 / F ADM Date: 05/20/24 Loc: NOMS Attending Dr: Martín Torres D.O. Ordering Physician: Martín Torres D.O. Date of Service: 05/20/24 Procedure(s): US pelvis w/ transvaginal Accession Number(s): [id number] cc: Martín Torres D.O.; GENEVIEVE FENG [address] [address] Patient Name: YURI GALLAGHER MRN: [id number] date: 1970 Sex: F Assigned [facility] Current Patient Location: Accession/Order Number: [id number] Exam Date: 05/20/2024 10:58 Report Date: 05/21/2024 [...] Signed By: 05/21/24 1520 DD/ 1518 TD/TT: Balloon Tester:KAIHRadiologjose maria, Radiologist, MD - 05/21/2024 [place] [address] Ultrasound Report Signed Patient: YURI GALLAGHER MR#: [id number] : 1970 Acct:[id number] Age/Sex: 53 / F ADM Date: 05/20/24 Loc: NOMS Attending Dr: Martín Torres D.O. Ordering Physician: aMrtín Torres D.O. Date of Service: 05/20/24 Procedure(s): US pelvis w/ transvaginal Accession Number(s): [id number] cc: Martín Torres D.O.; GENEVIEVE FENG [address] [address] Patient Name: YURI GALLAGHER MRN: [id number] date: 1970 Sex: F Assigned Patient Location: [facility] Current Patient Location: Accession/Order Number: [id number] Exam Date: 05/20/2024 10:58 Report Date: 05/21/2024 [...] Signed By: 05/21/24 1520 DD/ 1518 TD/TT: Balloon Tester: REYES HealthcareRadiology Study observation (narrative)[facility] HealthcareUS PELVIS W/ TRANSVAGINALOrdered By: Radiologist Radiology on 43-78-8903VJRF Healthcare Work Phone: cNOVon 60-04-5942LQYMVeoghz Visit ([facility]) SOCORRO GALLAGHER ([id number]) 1970 F Date Time Provider Department 05/14/24 3:30 PM MARSHA LANDA [facility] During your visit today, we recorded the following information about you: Weight 64 kg Marsha Landa APRN.DIRECTOR OF INSTRUCTIONAL TECHNOLOGY 05/14/2024 4:32 PM Signed Spine Care Path [...] has been under the care of her touch up painter hand with MRI thoracic spine imaging completed in [...] pain Pat presesnt 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 Nonsmoker Pain localized to area [...] Physical Therapy: None Treating Physicians: Genevieve Feng DIRECTOR OF INSTRUCTIONAL TECHNOLOGY - PCP Dr Melgar - Plastic Surgery [...] ALLERGIES (more content not included)...NormalCleveland Clinic ClevelandCNPNon 14-91-5528TULMQyxfnfnfc ([facility]) SOCORRO GALLAGHER ([id number]) 1970 F Date Time Provider Department 05/13/24 MARSHA LANDA [facility] During your visit today, we recorded the following information about you: Genevieve Barbosa 05/13/2024 12:08 PM Signed Socorro is calling Marsha Landa APRN.DIRECTOR OF INSTRUCTIONAL TECHNOLOGY today to ask if you can see her MRI results from [facility], which are for tomorrow's appointment. They told her they were sent to the Imaging Library, but when she tries to call she just gets disconnected. Please advise. Patient has been identified by name and birthdate. Duration of symptoms: N/A Person calling: self Call patient at: at home [phone] (home) [phone] (cell) Was an appointment scheduled: No Closing statement: Results or non-symptom based questions: Thank you for calling [facility], your call will be returned within the next business day. Dana Duffy, HERBIE 05/13/2024 12:31 PM Signed Neuro SPINE CARE COORDINATION EDEL BASS Spoke with patient and advised her that we don't have any Thoracic MRI images or report yet and to get a CD from [facility] to bring to the appointment with Marsha tomorrow. She verbalized understanding. I also sent an email to the [employer] to see if they have anything pending [...] Fully Assessed Reason for Visit: Patient Question [7180] Prescriptions as of 05/13/2024 - aspirin, enteric [...] (None) Encounter Status:Closed by DANA LOZANO on 05/13/24Gen[facility] HospitalPathology Request for Lab Corpon 47-68-7782Dnoowrzlr Request for Lab CorpAdventHealth TimberRidge ER Physician GroupComment on above:Order Comment: PATHOLOGY GI SPECIMENResult Comment: See report. Scanned copy available in EMR. PERFORMED BY: [place] [address] PATHOLOGIST CARD MOUNTER ANUSHA ROMO M.D.Performed By: #### PATH TO [facility] #### [place] [address] USAXR pre/post mri xrayon 50-93-6205SS pre/post mri xray [facility] [address] [place] [address] MRI Report Signed Patient: Yuri Gallagher MR#: [id number] : 1970 Acct:[id number] Age/Sex: 53 / F ADM Date: 05/02/24 Loc: [facility] Room: Type: [facility] Attending Dr: Jose Guadalupe Costa MD Copies to: Jose Guadalupe Costa Ordering Provider: Jose Guadalupe Costa Date of Service: 05/02/24 MR/MR thoracic spine wo con: THORACIC NEURITIS ([id number]) XR/XR pre/post mri xray: THORACIC NEURITIS MR [...] Austin Marsh M.D.05/02/2024 12:53 PM Dictation Location: [place] [address] Transcribed By: [facility] 05/02/24 6686 Dictated By: Austin Marsh II, MD 05/02/24 1241 Signed By: 05/02/24 1253[facility] ER Physician GroupCT ENTEROGRAPHY W IVCONon 10-75-6351LX ENTEROGRAPHY W IVCON* * *Final Report* * * DATE OF EXAM: Apr 25 2024 2:22PM [facility] 0545 - CT ENTEROGRAPHY W IVCON [...] unilocular left adnexal cyst, stable since 03/23/2023. Balloon Tester: MARISOL Transcribe Date/Time: Apr 25 2024 2:55P Dictated by : ODALIS GALAVIZ MD This examination was interpreted and the report reviewed and electronically signed by: ODALIS GALAVIZ MD on Apr 25 2024 3:13PM EST [id number] Health System [facility] Small bowel W contrast PO and W contrast Lata 68-35-5306VLOEHUJIIS: No active small bowel inflammation or acute process in the abdomen/pelvis. 3.6 cm unilocular left adnexal cyst, stable since 03/23/2023. Balloon Tester: MARISOL Transcribe Date/Time: Apr 25 2024 2:55P Dictated by : ODALIS GALAVIZ MD This examination was interpreted and the report reviewed and electronically signed by: ODALIS GALAVIZ MD on Apr 25 2024 3:13PM [facility] DIVISION OF RADIOLOGY* * *Final Report* * * DATE OF EXAM: Apr 25 2024 2:22PM [facility] 0545 - CT ENTEROGRAPHY W IVCON [...] lesion. Lung Bases: Unremarkable. DIVISION OF RADIOLOGYProvider, [facility] [place] - 04/25/2024 * * *Final Report* * * DATE OF EXAM: Apr 25 2024 2:22PM [facility] 0545 - CT ENTEROGRAPHY W IVCON [...] unilocular left adnexal cyst, stable since 03/23/2023. Balloon Tester: PSCB Transcribe Date/Time: Apr 25 2024 2:55P Dictated by : ODALIS GALAVIZ MD This examination was interpreted and the report reviewed and electronically signed by: ODALIS GALAVIZ MD on Apr 25 2024 3:13PM [facility] HospitalRad[facility] Study observation (narrative)[facility] Small bowel W contrast PO and W contrast IVOrdered By: Ccf Provider on 04-25-2024 [place] [address]([place])D3 [facility] [address]391-qtyqizeiwksqfl D3 [Mass/Vol] 39.3 ng/zJNymwpj00.0-80.0Protestant HospitalComment on above:Order Comment: Specimen Type: BLOOD SPECIMEN Ordering Facility: [facility] Address: [address] [place], [place] [address]Result Comment: Classification of 25 [place] Vitamin D status: Deficiency/Insufficiency: < or = 30 ng/ml. Sufficiency/Optimal Levels: 31-80 ng/mL Toxicity: > 100 ng/mL. Test performed by chemiluminescent immunoassay.Performed By: #### 1989-3 #### [facility] CLIA [id number] [address] [place] [address] STATES OF LANCASTER MUNICIPAL HOSPITALCB panel Auto (Bld)on 77-20-6944Utqnaobzyjn distribution width (RBC) [Ratio]12.4 %11.5 - 15.0 % [facility]ckitrick HospitalHematocrit (Bld) [Volume fraction]37.7 %36.0 - 46.0 %[facility]itrick HospitalHemoglobin (Bld) [Mass/Vol]12.5 g/dL11.5 - 15.5 g/dLMckitrick Hospital Interpretation and review of laboratory resultsNormalClevelNew Prague HospitalH (RBC) [Entitic mass]30.8 pg26.0 - 34.0 pgClevelNew Prague HospitalHC (RBC) [Mass/Vol]33.2 g/dL30.5 - 36.0 g/dLLima Memorial HospitalV (RBC) [Entitic vol]92.9 fL80.0 - 100.0 fLCleveland ClinicNucleated RBC (Bld) [#/Vol]NINFClevelfirsthealth montgomery memorial hospital ClinicPlatelet mean volume (Bld) [Entitic vol]10.6 fL9.0 - 12.7 fLClevelfirsthealth montgomery memorial hospital ClinicPlatelets (Bld) [#/Vol]274 10*3/uLMckitrick HospitalRBC (Bld) [#/Vol]4.06 10*6/uL3.90 - 5.20 m/uL [facility] HospitalWBC (Bld) [#/Vol]5.79 10*3/uLCleveland Clinic [facility] Erythrocyte distribution width (RBC) [Ratio]12.4 %Ssqcix25.5-15.0[facility] on above:Order Comment: Specimen Type: BLOOD SPECIMENOrdering Facility: [facility] Address:[address] [place], [place] [address]Performed By: #### 76976-3 ####[facility] LABIA [id number] [place] [address] [place] OF AMERICAHematocrit (Bld) [Volume fraction]37.7 %Gvdqkf08.0-46.0[facility] on above:Order Comment: Specimen Type: BLOOD SPECIMENOrdering Facility: [facility] Address:[address] [place], [place] [address]Performed By: #### 45380-7 ####[facility] [id number] [place] [address] [place] Hemoglobin (Bld) [Mass/Vol]12.5 g/mKScdaoi81.5-15.5CMercy Health Anderson Hospital Comment on above:Order Comment: Specimen Type: BLOOD SPECIMENOrdering Facility: [facility] Address:[address] [place] [address] Performed By: #### 57011-9 ####[facility]IA [id number] [place] [address] [place] MCH (RBC) [Entitic mass]30.8 geGfawfw37.0-34.0[facility] on above:Order Comment: Specimen Type: BLOOD SPECIMENOrdering Facility: [facility] Address:[address] [place] [address] Performed By: #### 69816-6 ####[facility] LABIA [id number] [place] [address] [place] MCHC (RBC) [Mass/Vol]33.2 g/fJSokpgj11.5-36.0[facility] on above:Order Comment: Specimen Type: BLOOD SPECIMENOrdering Facility: [facility] Address:[address] [place] [address] Performed By: #### 35894-5 ####[facility] LABCLIA [id number] [place] [address] [place] MCV (RBC) [Entitic vol]92.9 zYBjemrz92.0-100.0[facility] on above:Order Comment: Specimen Type: BLOOD SPECIMENOrdering Facility: [facility] Address:[address] [place] [address] Performed By: #### 27508-0 ####[facility] LABIA [id number] [place] [address] [place] Nucleated RBC (Bld) [#/Vol]10*3/uLNormal<0.01[facility] on above:Order Comment: Specimen Type: BLOOD SPECIMENOrdering Facility: [facility] Address:[address] [place] [address] Performed By: #### 74849-2 ####[facility] LABIA [id number] [place] [address] [place] Platelet mean volume (Bld) [Entitic vol]10.6 fLNormal9.0-12.7CEast [facility] on above:Order Comment: Specimen Type: BLOOD SPECIMENOrdering Facility: [facility] Address:[address] [place], [place] [address]Performed By: #### 89696-0 ####[facility] LABCLIA [id number] [place] [address] [place] Platelets (Bld) [#/Vol]274 10*3/eEBaikxf738-962AnaxajvocUniversity Hospitals Elyria Medical Center on above:Order Comment: Specimen Type: BLOOD SPECIMENOrdering Facility: [facility] Address:[address] [place] [address] Performed By: #### 13454-4 ####[facility] LABCLIA [id number] [place] [address] [place] RBC (Bld) [#/Vol]4.06 10*6/uLNormal3.90-5.20[facility] on above:Order Comment: Specimen Type: BLOOD SPECIMENOrdering Facility: [facility] Address:[address] [place], [place] [address]Performed By: #### 61357-6 ####[facility] LABCLIA [id number] [place] [address] [place] AMERICAWBC (Bld) [#/Vol]5.79 10*3/uLNormal3.70-11.00[facility] on above:Order Comment: Specimen Type: BLOOD SPECIMENOrdering Facility: [facility] Address:[address] [place], [place] [address]Performed By: #### 92456-7 ####[facility] LABCLIA [id number] [place] [address] [place] AMERICACRP SerPl-mCncon 58-71-1639LZG [Mass/Vol]mg/LNormal<0.9CEast [facility] on above:Order Comment: Specimen Type: BLOOD SPECIMENOrdering Facility: [facility] Address:[address] [place], [place] [address]Performed By: #### 26741- 8, 1987-11 ####[facility] LABCLIA [id number] [facility] [address] [place] AMERICAComprehensive metabolic 2000 panelon 18-40-1045Zwlknoe [Mass/Vol]4.5 g/dLNormal3.9-4.9CEast [facility] on above:Order Comment: Specimen Type: BLOOD SPECIMENOrdering Facility: [facility] Address:[address] [place], [place] [address]Performed By: #### 25065-3, 1987-11 ####[facility] LABCLIA [id number] [address] [address] [place] AMERICAALP [Catalytic activity/Vol]80 U/ZRnjvle98-682ClidouqvwProtestant Hospital Comment on above:Order Comment: Specimen Type: BLOOD SPECIMENOrdering Facility: [facility] Address:[facility] [place] [id number] Performed By: #### 48280-4, 1987-11 ####[facility] LABCLIA [id number] [place] [id number] [place] ALT [Catalytic activity/Vol]14 U/LNormal7-38Protest[facility] HospitalComoaklawn hospital on above:Order Comment: Specimen Type: BLOOD SPECIMENOrdering Facility: [facility] Address:[address] [place], [place] [address]Performed By: #### 38764-9, 1987-11 ####[facility] LABCLIA [id number] [place] [address] [place] AMERICAAnion gap [Moles/Vol] 12 mmol/LNormal8-15Protestant HospitalComment on above:Order Comment: Specimen Type: BLOOD SPECIMENOrdering Facility: [facility] Address:[address] [place], [place] [address]Performed By: #### 91469-2, 1987-11 ####[facility] LABCLIA [id number] [place] [address] [place] AMERICAAST [Catalytic activity/Vol]26 U/DJfjqnb62-82HchmzwpgdUniversity Hospitals Ely[facility] on above:Order Comment: Specimen Type: BLOOD SPECIMENOrdering Facility: [facility] Address:[address] [place], [place] [address]Performed By: #### 55098-4, 1987-11 ####[facility] LABCLIA [id number] [address] [address] [place] AMERICABilirubin [Mass/Vol]0.2 mg/dLNormal0.2-1.3 [facility] on above:Order Comment: Specimen Type: BLOOD SPECIMENOrdering Facility: [facility] Address:[address] [place] [id number] By: #### 55908-9, 1987-11 ####[facility] LABCLIA [id number] [place] [address] [place] AMERICACalcium [Mass/Vol]9.6 mg/dLNormal8.5-10.2CEast [facility] on above:Order Comment: Specimen Type: BLOOD SPECIMENOrdering Facility: [facility] Address:[address] [place], [place] [address]Performed By: #### 02038-0, 1987-11 ####[facility] LABCLIA [id number] [place] [address] [place] AMERICAChloride [Moles/Vol]102 mmol/PTvgkdf72-270QcgqsmwdbProtestant Hospital Comment on above:Order Comment: Specimen Type: BLOOD SPECIMENOrdering Facility: [facility] Address:[address] [place], [place] [address] Performed By: #### 02367-5, 1987-11 ####[facility] LABCLIA [id number] [place] [address] [place] CO2 [Moles/Vol]24 mmol/ZIsmoaq99-01RkvvppbbjUniversity Hospitals Elyria Medical Center on above: Order Comment: Specimen Type: BLOOD SPECIMENOrdering Facility: [facility] Address:[address] [place], [place] [address]Performed By: #### 86602- 8, 1987-11 ####[facility] LABCLIA [id number] [facility] E[address]ES[place] [address] [address] [place] AMERICACreatinine [Mass/Vol] 0.78 mg/dLNormal0.58-0.96Pro[facility] HospitalComoaklawn hospital on above:Order Comment: Specimen Type: BLOOD SPECIMENOrdering Facility: [facility] Address:[address] [place], [place] [address]Performed By: #### 81480- 1987-11 ####[facility] LABCLIA [id number] [facility] CENTERLID AV E[address]ES[id number] [place] [address] [place] AMERICACreatinine and Glomerular filtration rate.predicted panel (S/P/Bld)91 mL/min/1.73m???Normal>=60 Protestant HospitalComment on above:Order Comment: Specimen Type: BLOOD SPECIMENOrdering Facility: [facility] Address:[address] [place], [place] [address]Result Comment: Estimated Glomerular Filtration Rate (eGFR) is calculated using the 2020 CKD-EPI creatinine equation. This equation utilizes serum creatinine, sex, and age as parameters. The creatinine assay has traceable calibration to isotope dilution-mass spectrometry. Refer to KDIGO guidelines for clinical interpretation. In patients with unstable renal function, e.g. those with acute kidney injury, the eGFR may not accurately reflect actual GFR.Performed By: #### 97346-1, 1987-11 ####[facility] LABIA [id number] [place] [address] [place] AMERICAGlucose [Mass/Vol]94 mg/oQKvozor84-12HqufqacdvProtestant Hospital Comment on above:Order Comment: Specimen Type: BLOOD SPECIMENOrdering Facility: [facility] Address:[address] Comment: The [place] Diabetes Association (ADA) provides guidance for cutoff [...] Standards of Medical Care in Diabetes 2016, [place] [employer] Association. Diabetes Care. 2016.39(Suppl 1).Performed By: #### 54770-3, 1987-11 ####[facility] LABCLIA [id number] [place] [address] [place] AMERICAPotassium [Moles/Vol]4.5 mmol/L Normal3.7-5.1CEast [facility] on above:Order Comment: Specimen Type: BLOOD SPECIMENOrdering Facility: [facility] Address:[address] [place], [place] [address]Performed By: #### 10184-9, 1987-11 ####[facility] LABCLIA [id number] [place] [address] [place] AMERICAProtein [Mass/Vol]7.7 g/dLNormal6.3-8.0Protestant HospitalComment on above:Order Comment: Specimen Type: BLOOD SPECIMENOrdering Facility: [facility] Address:[address] [place], [place] [address]Performed By: #### 41763-6, 1987-11 ####[facility] LABCLIA [id number] [place] [address] [place] AMERICASodium [Moles/Vol]138 mmol/DPwilvh836-776CiofycfytUniversity Hospitals Elyria Medical Center on above:Order Comment: Specimen Type: BLOOD SPECIMENOrdering Facility: [facility] Address:[address] [place], [place] [address]Performed By: #### 78023-0, 1987-11 ####[facility] LABIA [id number] [place] [address] [place] AMERICAUrea nitrogen [Mass/Vol]11 mg/dLNormal7-21[facility] Comment on above:Order Comment: Specimen Type: BLOOD SPECIMENOrdering Facility: [facility] Address:[address] [place] [address] Performed By: #### 69289-2, 1987-11 ####[facility] LABCLIA [id number] [place] [address] [place] Office Visiton 43-66-0552Zycrok-up [id number] Yuri Gallagher 1970 F Date Provider Department Center 04/08/2024 3848-SEDA DOUGLASS CARD [place] [facility] Family History Problem Relation Age of Onset No Known Problems Mother Heart attack Father Coronary artery disease Father's Brother Stroke Paternal Grandfather Family Status - Relation Status Age at Mother Father Father's Brother Paternal Grandfather Level of Service:04198 DC OFFICE/OUTPATIENT ESTABLISHED LOW MDM 20 [facility]Labor[facility] - Chemistry and Chemistry - challengeon 09-37-5437Gbtqrripd Ql (U)NegativeNorwalk Memorial Hospital Glucose (U) [Mass/Vol]NegativeNorwalk Memorial HospitalKetones Ql (U) [facility] Medical CenterpH (U)9.0 [pH][facility] Centerpecific gravity (U) [Rel density]1.005Norwalk Memorial HospitalUrobilinogen (U) [Mass/Vol]0.2 mg/dLNorwalk Memorial Hospital Laboratory - Microbiology and Antimicrobial susceptibilityOrdered By: Genevieve Feng on 66-63-0650Fcezbfyn identified Cx Nom (U)Escherichia coliAbnormal [facility] HospitalLaboratory - Specimen informationon 04-02-2024 Appearance (U)[facility] HospitalColor (U)[facility] HospitalLaboratory - Urinalysison 27-94-2338Ceisijgzw esterase Test strip Ql (U)1+[facility] HospitalNitrite Ql (U)Negative [facility] HospitalProtein Ql (U)[facility] Medical CenterNo Panel Informationon 98-79-2345Slmfa Occult Blood3+[facility] HospitalUrine Cultureon 58-40-2415Ptrtuysk identified Cx Nom (U) ORGANISM: Escherichia coli (O:ESCCOL) [place] Count >100,000 Aerobic LEXIS Charge (NMIC56) SUSCEPTIBILITY [...] RESISTANT TO ALL B-LACTAM DRUGS. PERFORMED BY: [place] [address] PATHOLOGIST CARD MOUNTER ANUSHA ROMO M.D.[facility] ER Physician GroupComment on above:Performed By: #### CUU #### [place] [address] [place]on 00-59-2436EB Attestation signed by Seda Douglass MD at [...] wishes to proceed. Amairani Tinoco MD PGY-4 auto emissions technician [facility] HospitalalUniMemorial Health System Marietta Memorial HospitalNURSNOTEon 86-20-2360WILQXFEBLI educated pt on d/c instructions. RN encouraged pt to voice any questions or concerns. Pt verbalizes no questions or concerns at this time. Pt was wheeled off of unit with all of belongings.NormalUnCincinnati Shriners Hospital Basophils Auto (Bld) [#/Vol]on 34-31-6548Bzwzscqnz (Bld) [#/Vol]0.0 10 3/uL 0.0-0.1FWilson HealthBasophils/100 WBC Auto (Bld)on 26-51-5039Zkaggziti/100 WBC (Bld)0.6 %0.2-2.0[facility] Eosinophils/100 WBC Auto (Bld)on 49-11-2536Yhunlxlgyca/100 WBC (Bld)2.4 %0.9-7.0 [facility] HospitalErythrocyte distribution width Auto (RBC) [Ratio]on 17-21-9591Olqxdhfqndl distribution width (RBC) [Ratio]12.0 %11.0-15.0 [facility] HospitalEstimated glomerular filtration rate (GFR) non- Americanon 22-05-5022PEO/1.73 sq M.predicted among non-blacks MDRD (S/P/Bld) [Vol rate/Area]mL/min/{1.73_m2}>=60[facility] Hematocrit Auto (Bld) [Volume fraction]on 64-79-0248Nnoboewwcs (Bld) [Volume fraction]36.7 %36.0-48.0[facility] HospitalHemoglobin [Mass/volume] in Bloodon 60-51-3241Yhgytkilnu (Bld) [Mass/Vol]12.3 g/dL12.0-16.0 [facility] HospitalLaboratory - Chemistry and Chemistry - challengeon 54-91-5344Psqkuuh [Mass/Vol]8.8 mg/dL8.5-10.1FWilson HealthChloride [Moles/Vol]99 mmol/A28-426GfwfqccibNorwalk Memorial HospitalCO2 [Moles/Vol]32.4 mmol/LHigh21.0-32.0[facility] Creatinine [Mass/Vol]0.66 mg/dL0.55-1.02[facility] GFR/1.73 sq M.predicted MDRD (S/P/Bld) [Vol rate/Area]mL/min/{1.73_m2}>=60 [facility] HospitalGlucose [Mass/Vol]97 mg/iT27-133UkntkuxbcNorwalk Memorial HospitalPotassium [Moles/Vol]4.3 mmol/L3.5-5.1FLakeHealth TriPoint Medical Centerodium [Moles/Vol]136 mmol/G114-983OgizziluwNorwalk Memorial HospitalUrea nitrogen [Mass/Vol]17.0 mg/dL7.0-18.0[facility] HospitalUrea nitrogen/Creatinine [Mass ratio]25.8 mg/mgNorwalk Memorial HospitalLaboratory - Hematology and Cell countson 96-90-8853Habnjsnb granulocytes/100 WBC (Bld)0.0 %0.0-0.5FWilson Health Leukocytes [#/volume] corrected for nucleated erythrocytes in Blood by Automated counon 68-73-8575QQO corrected for nucl RBC Auto (Bld) [#/Vol]6.3 10 3/uL 4.0-11.0[facility] HospitalLymphocytes Auto (Bld) [#/Vol]on 98-48-6088Efmxbxkrugt (Bld) [#/Vol]1.7 10 3/uL1.2-3.8[facility] HospitalLymphocytes/100 WBC Auto (Bld)on 91-40-7900Axjbhvgpdxs/100 WBC (Bld)27.0 % 20.5-60.0Access Hospital DaytonH Auto (RBC) [Entitic mass]on 51-59-4046FIA (RBC) [Entitic mass]31.1 pg26.7-34.0[facility] Memorial HospitalMCHC Auto (RBC) [Mass/Vol]on 71-76-7072CSWQ (RBC) [Mass/Vol]33.5 g/dL 29.9-35.2FWilson HealthMCV Auto (RBC) [Entitic vol]on 78-45-8989UDV (RBC) [Entitic vol]92.7 fL81.0-99.0[facility] HospitalMonocytes Auto (Bld) [#/Vol]on 18-21-6550Awwwutkzk (Bld) [#/Vol]0.5 10 3/uL0.3-0.8[facility] HospitalMonocytes/100 WBC Auto (Bld)on 82-73-8989Vrkgkjmgo/100 WBC (Bld)7.7 %1.7-12.0[facility] Neutrophils Auto (Bld) [#/Vol]on 42-34-1571Rxnsukemovm (Bld) [#/Vol]3.9 10 3/uL 1.4-6.5FWilson HealthNeutrophils/100 WBC Auto (Bld)on 61-74-6044Fuyycardvpy/100 WBC (Bld)62.3 %43.0-75.0[facility] HospitalNo Panel Informationon 42-64-5257Eghmiovhbiz # (Auto)0.2 10 3/uL0.0-0.7 [facility] HospitalImmature Granulocyte # (Auto)0.00 10 3/uL 0.00-0.03[facility] HospitalPlatelet mean volume Auto (Bld) [Entitic vol]on 25-86-8770Mhilwmde mean volume (Bld) [Entitic vol]9.7 fL9.5-13.5 [facility] HospitalPlatelets Auto (Bld) [#/Vol]on 03-13-2024 Platelets (Bld) [#/Vol]246 10 3/hA853-667DeejepeneNorwalk Memorial HospitalRBC Auto (Bld) [#/Vol]on 39-10-9433DXH (Bld) [#/Vol]3.96 10 6/uLLow4.20-5.40 [facility] Medical Centererum or plasma anion gap determinationon 33-30-1705Sqgcf gap [Moles/Vol]8.9 mmol/LFWilson HealthOffice Visiton 69-94-0091Vfzeby-up [id number] Yuri Gallagher 1970 Date Provider Department Center 03/04/2024 SEDA HOLM BRANDY Martin Family History Problem Relation Age of Onset No Known Problems Mother Heart attack Father Coronary artery disease Father's Brother Stroke Paternal Grandfather Family Status - Relation Status Age at Mother Father Father's Brother Paternal Grandfather Level of Service:08659 DC OFFICE/OUTPATIENT NEW MODERATE MDM 45 MINUTESNormal [facility] HospitalOrders Onlyon 40-05-3848Nvsgge [id number] Yuri Gallagher 1970 Date Provider Department Center 03/04/2024 TANISHA ANDINO BRANDY Martin Family History Problem Relation Age of Onset No Known Problems Mother Heart attack Father Coronary artery disease Father's Brother Stroke Paternal Grandfather Family Status - Relation Status Age at Mother Father Father's Brother Paternal GrandfatherNWyandot Memorial HospitalCNOV 06-21-2023 CNOVOffice Visit ([facility]) SOCORRO GALLAGHER ([id number]) 1970 F Date Time Provider Department 06/21/23 8:00 AM MARSHA LANDA [facility] During your visit today, we recorded the following information about you: Weight Height 64 kg 1.6 m Marsha Landa APRN.DIRECTOR OF INSTRUCTIONAL TECHNOLOGY 06/21/2023 9:30 AM Signed Spine Care Path [...] under the care of pain management in [facility] where she recently underwent a right gluteal nerve block without improvement in symptoms. She states that at postinjection follow-up she was offered a piriformis injection but is reluctant to proceed. She reports that she recently had an EMG completed. EMG results were not available at time of today's appointment. 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 Nonsmoker Pain localized to right [...] prednisone Physical Therapy: Spring 2022 attended at [facility] , she states sessions were [...] change in vision or hearing. CARDIOVASCULAR: Denies chrisitna (more content not included)...NormalMercy Health St. [facility] - Ultrasound Reporton 93-77-8600YMG - Ultrasound Report [id number]#1.00CD:127NoCleveland Clinic Avon HospitalCoding Summary.on 25-55-2442Fbwljk Summary.CODING DATE: 07/31/2020 FINAL [facility] STATUS: Home (Routine DC) PAYOR: [facility] [place] [facility] DESCRIPTION 5373 Level 3 Urology and [...] By: So Valle Date Saved: 07/31/2020 12:41 pmNKettering Health TroyConsent for Procedure/Surgeryon 26-39-2936Kkywyoa for Procedure/Surgery [id number]#1.00CD:127[facility] CampusConsent for Treatmenton 43-12-5919Rkpxipx for Treatment [id number]#1.00CD:[address] [place], [place] [address]Discharge Instructionson 49-35-3858Dhrwsrudd Instructions [id number]#1.00CD:[address] [place], [place] [address]History and Physicalon 89-59-2280Gqenbwy and Physical [id number]#1.00CD:[address] [place], [place] [address]IntraOperative Documentson 66-19-3076AmwdsOevmdkwyz Documents [id number]#1.00CD:[address] [place], [place] [address]Main [place] Intraoperative Recordon 19-49-2066Mwin OR Intraoperative Record IntraOp Document Type FTURO Summary Primary Physician: Facundo Fam Jr., MD Finalized Date/Time: 07/30/20 13:50:41 Pt. Name: YURI GALLAGHER Isidro Mireles/Sex: 1970 Female Med Rec #: [id number] Physician: Facundo Fam Jr., MD Financial #: [id number] Pt. Type: O Room/Bed: / Admit/Disch: 07/30/20 13:06:47 - Institution: Case Times FTURO Entry 1 Patient Times In Room 07/30/20 13:40:00 Out Room 07/30/20 13:51:00 Procedure Times Start 07/30/20 13:46:00 Stop 07/30/20 13:47:00 Anesthesia Times Last Modified By: Colleen RN, LUKEOR, Diana Avilez 07/30/20 13:50:14 Case Attendance FTURO Entry 1 Entry 2 Entry 3 Case Attendee Sarwat Yadav MD, Facundo Macias RN, CNOR, Diana Avilez [facility], Marisela Reeves Role Performed Surgeon - Primary Rear Load Truck Driver - Primary Scrub - Primary Time In [...] By: LYNSEY Macias RN, Lou Ann 07/30/20 13:50NoCleveland Clinic Avon HospitalMain OR Preoperative Recordon 19-72-7489Cjma OR Preoperative RecordHolding Area Document Type FTURO Summary Primary Physician: Facundo Fam Jr., MD Finalized Date/Time: 07/30/20 13:41:28 Pt. Name: YURI GALLAGHERO.B./Sex: 1970 Female Med Rec #: [id number] Physician: Facundo Fam Jr., MD Financial #: [id number] Pt. Type: O Room/Bed: / Admit/Disch: 07/30/20 [...] 13:41:05 General Comments: Temp. 36.4 Finalized By: LYNESY Macias RN, Lou Ann Document Signatures Signed By: Kirstie WOODDenishaa 07/30/20 13:22 LYNSEY Macias RN, Lou Ann 07/30/20 13:41 LYNSEY Macias RN, Lou Ann 07/30/20 13:41 [facility] CampusOperative Reporton 97-06-5445Vfvxxemev Report Patient: YURI GALLAGHER Age: 49 years [...] urine. The Urethra was dilated to: 28 Martiniquais w/ sounds. Devices Implanted: None. Removal: Cystoscope is removed, The patient tolerated it well. Postoperative Information Discharge: Patient is discharged home with antibiotic coverage, Follow up arranged.[facility] CampusComment on above:Result Comment: Electronically Signed By: Facundo Fam Jr., MD\.br\Date and Time Signed: 07/30/2112:51 ESTPatient Educationon 30-41-6094Djptfir EducationCystoscopy with Urethral Dilation ? Voiding after [...] if you have a fever over 100 degreesNoCleveland Clinic Avon Hospital Ambulatory Clinical Summaryon 64-59-5544Xufkgmmwns Clinical Summary {6r-61-p7-42-51-5e-5x-5b-i0-5t-t1-84-db-90-09-ea}CD:489900PispigAsnsltSumma Health Barberton CampusAmbulatory Clinical Summary {54-5j-id-ok-k3-71-10-05-82-l7-15-5c-8f-1f-22-29}CD:926117ZsdlfpYdhkbeSumma Health Barberton CampusPatient Educationon 65-98-8631Khaezhq EducationUrinary Tract Infection Urinary tract infections (UTIs) [...] Document Reviewed: 08/03/2012 ExitCare? Patient Information ?2013 [employer].[facility] Barberton CampusUrology Office/Clinic Noteon 75-47-6818Tyntiev Office/Clinic NoteChief Complaint Pt is new and [...] Will order Local anesthesia. ABX sent to [facility] in [place]. Ordered: Urology Procedure Order US Renal 2. [...] day(s), # 2 tab(s), Refills(s) 0, Pharmacy: [facility]/pharmacy #[id number], 162, cm, 07/21/20 13:48:00 EST, Height/Length Dosing, 68.5, kg, 07/21/20 13:48:00 EST, Weight Dosing Urnls Dip Stick Auto w/o Microscopy POC 67010 I have reviewed the previous health record information and history for this pt. from Dr. Fam. Follow-up With When Contact Information Sarwat Yadav MD, Facundo Felix [address] [place] [address] [place] [address]- Additional Instructions: Patient Education Urinary Tract Infection [...] Protein Urine Dipstick: Negative (07/21/20 13:39:00) Specific [place] Urine Dipstick: 1.020 (07/21/20 13:39:00) Urine Appearance [...] past she is been treated with Bactrim DS.[facility] Barber[facility] CampusComment on above:Result Comment: Electronically Signed By: Sarwat Yadav MD, Facundo Felix\.br\Date and Time Signed: 07/21/2113:42 EST\.br\Electronically Co-Signed By: Lety Marino MA\.br\Date and Time Co-Signed: 07/21/20 14:31 EST Vital Signs Date TimeVital SignValuePerforming NwtfvimpwXkwwbijo83-65-5386 08:23-0500Body uxotvt580.02 cmGenevieve Feng CAR PICK UP DRIVER Work Phone: [facility]11-07-2025 08:23-0500 Body mass index (BMI) [Ratio]25.4 kg/l6NcpyjyowGenevieve Feng CAR PICK UP DRIVER Work Phone: [phone]11-07-2025 08:23-0500 Body toxdzx26.31 kgGenevieve Feng CAR PICK UP DRIVER Work Phone: [phone]11-07-2025 08:23-0500 Diastolic blood szztstoy31 mm[Hg]Genevieve Jung CAR PICK UP DRIVER Work Phone: [phone]11-07-2025 08:23-0500 Heart rate78 /minGenevieve Feng [employer] PICK [employer] DRIVER Work Phone: [facility]11-07-2025 08:23-0500 Respiratory rate14 /minGenevieve Feng [employer] P[employer] UP DRIVER Work Phone: [facility]11-07-2025 08:23-0500 SaO2% (BldA) [Mass fraction]96 %Genevieve Jung LEAVITT Work Phone: [facility]11-07-2025 08:23-0500 Systolic blood nsidbiwg416 mm[Hg]Genevieve Jung LEAVITT Work Phone: [facility]08-14-2025 11:37-0400 Body mass index (BMI) [Ratio]25.58 kg/r5WbjssdtxTeressa Tello DIAMOND SANDER Work Phone: 1(001)[address]08-14-2025 11:37-0400Body vgrvwo43.5 kg Teressa Ridleyly DIAMOND SANDER Work Phone: 1(487)[address] [place], [place] 0221008-14-2025 11:37-0400Diastolic blood ypbsevfp30 mm[Hg]Teressa Ridleyly DIAMOND SANDER Work Phone: 1(440)[address] [place], [place] 0221008-14-2025 11:37-0400Systolic blood kxynlmcj994 mm[Hg]Teressa Elisha DIAMOND SANDER Work Phone: 1(970)[address] [place], [place] 0221003-19-2025 15:30-0400Body lopwsm029.02 cmCorey Brian DO Work Phone: 1(506)[address] [place], [place] 9963203-19-2025 15:30-0400 Body mass index (BMI) [Ratio]25.4 kg/h9Qrcdd Brian DO Work Phone: 1([phone])448-[address] [place], [place] 6568103-19-2025 15:30-0400 Body nkbnvewgegf58.4 [degF]Martín Brian DO Work Phone: 1(118)[address] [place], [place] 9963203-19-2025 15:30-0400 Body wihqoz22.31 kgCorey Brian DO Work Phone: 1(306)[address] [place], [place] 9963203-19-2025 15:30-0400 Diastolic blood ibtfbqiz34 mm[Hg]Martín Brian DO Work Phone: 1(419)[address] [place], [place] 9963203-19-2025 15:30-0400 Heart rate78 /minCorey Brian DO Work Phone: 1(321)[address] [place], [place] 9963203-19-2025 15:30-0400 SaO2% (BldA) [Mass fraction]98 %Martín Brian DO Work Phone: 1(395)[address] [place], [place] 9963203-19-2025 15:30-0400 Systolic blood mlcfrfun744 mm[Hg]Martín Brian DO Work Phone: 1(800)[address] [place], [place] 9963203-19-2025 09:37-0400 Body ugrdfs759.02 cmCorey Brian DO Work Phone: 1(879)[address] [place], [place] 9963203-19-2025 09:37-0400 Body mass index (BMI) [Ratio]25.1 kg/k4Lmaol Brian DO Work Phone: 1(137)[address] [place], [place] 9963203-19-2025 09:37-0400 Body bsroce81.41 kgCorey Brian DO Work Phone: 1(240)[address] [place], [place] 9963203-03-2025 15:59-0500 Body mass index (BMI) [Ratio]26 kg/o7Ppoxv Brian DO Work Phone: 1(915)[address] [place], [place] 0221003-03-2025 15:59-0500Body qwavqc05.59 kgCorey Brian DO Work Phone: 1(664)[facility] [place], [place] [address]Kwwreysvam02-39-6747 15:59-0500Diastolic blood qruijpgg22 mm[Hg]Martín Brian DO Work Phone: 1(838)[facility] [place], [place] [address]Sbwmjowemr49-25-4325 15:59-0500Systolic blood fubbkewy179 mm[Hg]Martín Brian DO Work Phone: 1(043)[address] [place], [place] 0221001-22-2025 13:42-0500Body mass index (BMI) [Ratio]26.36 kg/f7Dyxdx Brian DO Work Phone: 1(768)[facility] [place], [place] [address]Izevzhqoqu70-60-5396 13:42-0500Body htojof12.5 kg Martín Brian DO Work Phone: 1([phone] HospitalIkdkrufmxr69-90-1352 13:42-0500Diastolic blood wdkwiope90 mm[Hg]Martín Brian DO Work Phone: 1(375)[address] [place], [place] 0221001-22-2025 13:42-0500Systolic blood dqozxvpy147 mm[Hg]Martín Brian DO Work Phone: 1(648)[address] [place], [place] 0221012-23-2024 08:36-0500Body mass index (BMI) [Ratio]25.76 kg/y9Vxbse Brian DO Work Phone: 1(892)[address] [place], [place] 0221012-23-2024 08:36-0500Body lvlquj43.95 kgCorey Brian DO Work Phone: 1(934)[address] [place], [place] 0221012-23-2024 08:36-0500Diastolic blood vrfyttlm08 mm[Hg]Martín Brian DO Work Phone: 1(288)[address] [place], [place] 0221012-23-2024 08:36-0500Systolic blood eaycobps914 mm[Hg]Martín Brian DO Work Phone: 1(631)[address]11-05-2024 15:18-0500Body mass index (BMI) [Ratio]24.99 kg/p1TdbccMarsha Landa APRN.CNP Work Phone: [facility]11-05-2024 15:18-0500Body xewswm12 kg Marsha Landa [employer] PICK UP DRIVER.DIRECTOR OF INSTRUCTIONAL TECHNOLOGY Work Phone: [facility]10-24-2024 11:30-0400Diastolic blood uufniepp83 mm[Hg]PHYSICIAN [facility]10-24-2024 11:30-0400Heart rate68 /minPHYSICIAN [facility] 05-02-2024 11:30-0400Respiratory rate16 /minPHYSICIAN [facility]10-24-2024 11:30-7727RzS1% (BldA) [Mass fraction]97 % PHYSICIAN [facility]10-24-2024 11:30-0400 Systolic blood klhuruae951 mm[Hg]PHYSICIAN NO [facility]10-24-2024 10:25-0400Body pugyfa334.02 cmPHYSICIAN [facility]10-24-2024 10:25-0400Body ygmpzrbrhlw72.1 [degF]PHYSICIAN [facility]10-24-2024 10:25-0400Body .23 kgPHYSICIAN [facility]10-23-2024 08:59-0400Body ewqwnq000.02 cmPHYSICIAN [facility]10-23-2024 08:59-0400Body mass index (BMI) [Ratio]23.9 kg/o5YWXDFVXMQ [facility]10-23-2024 08:59-0400Body krvzet49.23 kgPHYSICIAN [facility]10-02-2024 13:24-0400Body zmkfui320 cm Kyle Zhu MD Work Phone: [facility]10-02-2024 13:24-0400Body mass index (BMI) [Ratio]23.74 kg/m2Kyle Zhu MD Work Phone: [facility]10-02-2024 13:24-0400Body temperature 98.2 [degF]Kyle Zhu MD Work Phone: [facility]10-02-2024 13:24-0400Body zwshca10.78 kgKyle Zhu MD Work Phone: [facility]10-02-2024 13:24-0400Diastolic blood coupzkkw00 mm[Hg]Kyle Zhu MD Work Phone: [facility]10-02-2024 13:24-0400Heart rate77 /min Kyle Zhu MD Work Phone: [facility]10-02-2024 13:24-2581EeJ4% (BldA) [Mass fraction]97 %Kyle Zhu MD Work Phone: [facility]10-02-2024 13:24-0400Systolic blood viiivdqn050 mm[Hg]Kyle Zhu MD Work Phone: [facility]09-24-2024 10:11-0400Body jxxibp277.02 cmAMINA Genevievenaheed Feng Work Phone: [facility]09-24-2024 09:07-0400 Body tpogjh132.02 cm[facility]09[facility]20[facility] 09:07-0400Body mass index (BMI) [Ratio]25 kg/l2KbonwhcspNorwalk Memorial Hospital09-24-2024 09:07-0400Body ghpoqrewbpe06.4 [degF][facility]09-24-2024 09:07-0400Body dsidxg28.01 kg[facility]09-24-2024 09:07-0400Diastolic blood mm[Hg][facility] 04-02-2024 09:07-0400Systolic blood okkonpaq038 mm[Hg][facility]09-13-2024 09:49-0400Body fwuliw928 cmMatthew Petznick DO Work Phone: [facility] HospitalDulflxfazf30-27-7473 09:49-0400Body mass index (BMI) [Ratio]25.01 kg/f3Meyjebq Petznick DO Work Phone: 1(427)[facility] HospitalNhqczuotyo38-36-3857 09:49-0400Body temperature 97.5 [degF]Blanka Aguirre DO Work Phone: [place] [address]Rbbvbsbemm84-56-3561 09:49-0400Body .05 kgMatthew Petznick DO Work Phone: [place] [address]Wtyuunwvgf05-62-5720 09:49-0400Diastolic blood oqmdtghr87 mm[Hg]Blanka Aguirre DO Work Phone: [place] [address]Szeqwngeif85-14-2543 09:49-0400Heart rate81 /min Blanka Sanchezchelsea DO Work Phone: [place] [address]Vltguzskyu94-38-9727 09:49-6681ZrC5% (BldA) [Mass fraction]98 %Blanka Aguirre DO Work Phone: [facility] HospitalZmzarkfpjy94-08-1687 09:49-0400Systolic blood bgyblfsx532 mm[Hg]Blanka Aguirre DO Work Phone: [facility] HospitalMprzudtekz38-88-3609 08:26-0400Body dvgcto767.02 cm[facility]09-12-2024 08:26-0400Body mass index (BMI) [Ratio]24.6 kg/a0PdnwawfgoNorwalk Memorial Hospital09-12-2024 08:26-0400Body jezxlg89.04 kg[facility]09-12-2024 08:26-0400Diastolic blood kgsindta81 mm[Hg][facility]09-12-2024 08:26-0400 Heart rate73 /[facility]09-12-2024 08:26-0400 Respiratory rate18 /[facility]09-12-2024 08:26-0400 SaO2% (BldA) [Mass fraction]99 %[facility]09-12-2024 08:26-0400Systolic blood gdrniwcu597 mm[Hg][facility] 03-05-2024 11:34-0400Body mass index (BMI) [Ratio]25.3 kg/m2Linda DEVINE Work Phone: [facility] HospitalEnvwqanqan56-72-1621 11:34-0400Body yetzbb41.77 kgLinda DEVINE Work Phone: [facility] HospitalVmkztpvcla04-81-0392 11:34-0400Diastolic blood ljplvxve68 mm[Hg]Linda DEVINE Work Phone: [facility] HospitalAnlndgukfj71-00-8496 11:34-0400Systolic blood zewxjuvz471 mm[Hg]Linda DEVINE Work Phone: [facility] HospitalZduwfpkixt19-78-1564 13:28-0400Body kfuiws957.02 cm[facility]08-19-2024 13:28-0400Body mass index (BMI) [Ratio]25.1 kg/a3PysqamewqNorwalk [facility] Hospital08-19-2024 13:28-0400Body .41 kg[facility]08-19-2024 13:28-0400Diastolic blood imtrfewx22 mm[Hg][facility]08-19-2024 13:28-0400 Heart rate80 /[facility]08-19-2024 13:28-3093XfJ4% (BldA) [Mass fraction]98 %[facility]08-19-2024 13:28-0400 Systolic blood ctlabbdz296 mm[Hg][facility]08-12-2024 15:29-0400Body anxcns271.02 cm[facility]08-12-2024 15:29-0400Body mass index (BMI) [Ratio]25.3 kg/l1EcmrvujqmNorwalk Memorial Hospital08-12-2024 15:29-0400Body nbumdz72.86 kg[facility] 02-19-2024 15:29-0400Diastolic blood mm[Hg][facility]08-12-2024 15:29-0400Heart rate87 /[facility] 02-19-2024 15:29-3470ViX1% (BldA) [Mass fraction]98 %[facility]08-12-2024 15:29-0400Systolic blood ewenmcml358 mm[Hg][facility]04-04-2024 08:26-0400Body upuabf952.02 cm[facility]04-04-2024 08:26-0400Body mass index (BMI) [Ratio]25.1 kg/m2 [facility]04-04-2024 08:26-0400Body gagbzm04.41 kg [facility]04-04-2024 08:26-0400Diastolic blood mm[Hg][facility]04-04-2024 08:26-0400Heart rate78 /min [facility]04-04-2024 08:26-3791VdL8% (BldA) [Mass fraction]98 %[facility]04-04-2024 08:26-0400Systolic blood rgfzgliz249 mm[Hg][facility]03-07-2024 09:36-0500 Body .02 cm[facility]03-07-2024 09:36-0500Body mass index (BMI) [Ratio]24.6 kg/l5EktctwhmaNorwalk Memorial Hospital03-07-2024 09:36-0500Body sdorox69.04 kg[facility]03-07-2024 09:36-0500Diastolic blood uhvvaubc22 mm[Hg][facility] 09-14-2023 09:36-0500Heart rate88 /min[facility] 09-14-2023 09:36-7687LwU5% (BldA) [Mass fraction]98 %[facility]03-07-2024 09:36-0500Systolic blood ujkarfen032 mm[Hg][facility]12-13-2023 07:56-0500Body fxezpq048 cmMarsha Landa APRN.CNP Work Phone: [facility]12-13-2023 07:56-0500Body ffwisg21.96 kgMarsha Landa APRN.CNP Work Phone: [facility]09-11-2023 08:57-0400Body cm JAM Melgar MD Work Phone: c[facility] CenterMnelyu85-04-0234 08:57-0400Body lnrmup80.24 kgJAM Melgar MD Work Phone: [facility] Encounters Encounter DateEncounter TypeCare ProviderFacilityStart: 05-16-2025 End: 54-27-4185qvnajbieweQfwbxtux Rohrbacher APRN Work Phone: -[facility]tart: 05-16-2025 End: 61-81-9901Euzkcoe encounter procedureJemore Feng APRN [facility] Work Phone: Start: 05-16-2025 End: 11-89-2738Uydgukcqzhxfo examination doneGenevieve Feng APRN [facility] Hospitaltart: 05-15-2025 End: 49-40-8568Jhwzeg flowsheetNatalie A Felter CAR PICK UP DRIVER-DIRECTOR OF INSTRUCTIONAL TECHNOLOGY Work Phone: noMS [facility] DermatologyStart: 05-15-2025 End: 25-21-0103Fankiy flowsheetNatalie A Felter CAR PICK UP DRIVER-DIRECTOR OF INSTRUCTIONAL TECHNOLOGY Work Phone: noMS Perez DermatologyStart: 05-15-2025 End: 41-33-2973Lgvcom outpatient visit 25 minutesNatalie A Chiquitaer CAR PICK UP DRIVER-DIRECTOR OF INSTRUCTIONAL TECHNOLOGY Work Phone: no Archer DermatologyComment on above:Melanocytic nevus of lower extremity, unspecified laterality (Primary Dx); Melanocytic nevus of trunk; Lentigines; Seborrheic keratosis; Other rosacea; Idiopathic guttate hypomelanosis; Rhytides; Seborrheic keratosis, inflamed; Inflamed seborrheic keratosisStart: 05-15-2025 End: 82-17-0821fvswpqbpduYFXEYRG A FELTERNot AvailableStart: 04-03-2025 End: 41-53-1122oyhhqfppjnLNOLOYOT EBERLYNot AvailableStart: 04-03-2025 End: 72-10-3848Uybnwod encounter procedureTeressa Tello NP Work Phone: n[facility] [place] OBGYNComment on above:Postmenopausal HRT (hormone replacement therapy) (Primary Dx); Anxiety, generalizedStart: 02-28-2025 End: 14-06-1668Jektqsuag Result EncounterTeressa Tello NP Work Phone: noms External Department UnsolicitedStart: 02-28-2025 End: 51-04-4325Ulvwpqotw Result EncounterTeressa Tello NP Work Phone: noms External Department UnsolicitedStart: 02-28-2025 Non-patient / Non-visitTeressa Tello APRN, CNP-[facility] Work Phone: Start: 02-20-2025 End: 27-87-0845Tayakv flowsVikash Tello DIAMOND SANDER Work Phone: noms N[facility]n OBGYNStart: 02-20-2025 End: 59-72-2076Cohxqg flowsheetTeressa Tello DIAMOND SANDER Work Phone: [facility] Adrian OBGYNStart: 02-20-2025 End: 90-69-6723bifbubppprOXBYTGJZ EBERLYNot AvailableStart: 02-20-2025 End: 53-08-9649Mifxjz outpatient visit 15 minutesTeressa Tello DIAMOND SANDER Work Phone: [facility] OBGYNComment on above:Hormone disorder (Primary Dx); Postmenopausal HRT (hormone replacement therapy)Start: 09-75-6014Zdsrreigjgqhl examination Sd Feng APRN Work Phone: [facility]art: 09-25-2024 End: 67-76-4528cyveqnsoxmMnzvt Brian DO Work Phone: [facility] Work Phone: Start: 09-25-2024 End: 32-60-1673Jsgmpml encounter procedureCorey Brian DO Work Phone: [facility] Work Phone: Start: 09-25-2024 End: 79-82-4218xwqitzeskwNtcux Brian DO Work Phone: [facility] Work Phone: Start: 09-25-2024 End: 52-13-0715Ciyzfrr encounter procedureCorey Brian DO Work Phone: [facility] Work Phone: Start: 09-09-2024 End: 42-49-4778Agfpuz follow up visit related to original pxCorey Brian DO Work Phone: noms BCP OBComment on above:Postoperative follow-up Start: 09-09-2024 End: 43-69-5954gazcdttkmqHVZQM FAZIONot AvailableStart: 09-09-2024 End: 78-71-6464Llzjar flowsheetCorey Brian DO Work Phone: noms BCP OBStart: 09-09-2024 End: 30-93-9299Cfcncm flowsheetCorey Brian DO Work Phone: [facility] BCP OBStart: 08-30-2024 End: 41-15-7840Rewgaitfb Result EncounterCorey Brian DO Work Phone: [facility] External Department UnsolicitedStart: 08-30-2024 End: 60-26-7429Ttuynwsjv Result EncounterCorey Brian DO Work Phone: noMS External Department UnsolicitedStart: 08-30-2024 End: 39-06-5760niybrjqcibSlwsp [facility]Fi[facility] Work Phone: Start: 08-30-2024 End: 43-36-4319Chrulkum ReferredCorey Brian DO Work Phone: [facility] [place] HospStart: 32-10-0258Yjd-patient / Non-visitCorey Brian DO Work Phone: [facility] Work Phone: Start: 33-98-7675Gak-patient / Non-visitCorey Brian DO Work Phone: [facility] Work Phone: Start: 81-39-6079Cqd-patient / Non-visitCorey Brian DO Work Phone: [facility] Work Phone: Start: 08-15-2024 End: 32-91-9965Jeknrdpka Result EncounterCorey Brian DO Work Phone: noMS External Department UnsolicitedStart: 08-15-2024 End: 89-70-7472Pfwxsogcs Result EncounterCorey Brian DO Work Phone: [facility] External Department UnsolicitedStart: 08-06-2024 End: 30-25-3815zhlhsqhhuhUcgeyxv D Gundlach PT Work Phone: noms SWS PTComment on above:Thoracic spine pain (Primary Dx); Thoracic spondylosisStart: 08-06-2024 End: 28-41-2646Hlnzjd flowsheetMatthew D Gundlach PT Work Phone: noms SWS PTStart: 08-06-2024 End: 86-84-6083Wzljtd flowsheetMatthew D Gundlach PT Work Phone: noms SWS PTStart: 08-02-2024 End: 56-62-0409Snsqig flowsheetBrittany Wengerd PTANOMS SWS PTStart: 08-02-2024 End: 44-65-1166Uvdvhj flowsheetBrittany Wengerd PTANOMS SWS PTStart: 08-02-2024 End: 36-40-7946zrnkpvdbdkHnwzzkaq Wengerd PTANOMS SWS PTComment on above: Thoracic spine pain (Primary Dx); Thoracic spondylosisStart: 08-01-2024 End: 04-07-5371rizmvuohikOMW RAMEYNot AvailableStart: 07-31-2024 End: 40-76-7730Ebjafk outpatient visit 15 minutesCorey Brian DO Work Phone: NOMS BCP OBComment on above:Pre-op examination; Pelvic pain in female; Complex cyst of left ovaryStart: 07-31-2024 End: 09-81-9794Yliwswhkmtajw examination doneCorey Brian DO Work Phone: [facility]OM[facility] HealthcareStart: 07-31-2024 End: 74-05-6996Wrtzco flowsheetCorey Brian DO Work Phone: [facility] BCP OBStart: 07-31-2024 End: 18-58-7845Xkdesi flowsheetCorey Brian DO Work Phone: [facility] BCP OBStart: 07-31-2024 End: 31-77-3071llqpiwfllkMZJGM FAZIONot AvailableStart: 07-25-2024 End: 93-72-1532udbiyqykieHqtjbkyb Wengerd PTANOMS SWS PTComment on above: Thoracic spine pain (Primary Dx); Thoracic spondylosisStart: 07-25-2024 End: 30-27-2974Yvbyxq flowsheetBrittany Wengerd PTANOMS SWS PTStart: 07-25-2024 End: 93-86-3540Trtjdb flowsheetBrittany Wengerd PTANOMS SWS PTStart: 07-23-2024 End: 67-61-4473ynlofimdxzMUCMYTQ D GUNDLACHNot AvailableStart: 07-23-2024 End: 02-38-1700Mpcqtf flowsheetMatthew D Gundlach PT Work Phone: noMS SWS PTStart: 07-23-2024 End: 55-41-0747Qtcwxd flowsheetMatthew D Gundlach PT Work Phone: noMS SWS PTStart: 07-18-2024 End: 98-43-7220cluhabhpsiNuptzti D Gundlach PT Work Phone: noMS SWS PTComment on above:Thoracic spine pain (Primary Dx); Thoracic spondylosisStart: 07-18-2024 End: 17-03-4521Vcmsec flowsheetMatthew D Gundlach PT Work Phone: noMS SWS PTStart: 07-18-2024 End: 45-59-7023Qykjhe flowsheetMatthew D Gundlach PT Work Phone: noMS SWS PTStart: 07-11-2024 End: 41-78-7537xgxcmjzpuvUyafjvp D Gundlach PT Work Phone: noMS SWS PTComment on above:Thoracic spine pain (Primary Dx); Thoracic spondylosisStart: 07-11-2024 End: 74-66-0255Psquhi flowsheetMatthew D Gundlach PT Work Phone: [facility] PTStart: 07-11-2024 End: 30-32-5186Vptrrv flowsheetMatthew D Gundlach PT Work Phone: n[facility] PTStart: 07-08-2024 End: 58-85-3005Vjlrbd flowsheetMatthew D Gundlach PT Work Phone: noms SWS PTStart: 07-08-2024 End: 72-62-3951Zvqezm flowsheetMatthew D Gundlach PT Work Phone: noms SWS PTStart: 07-08-2024 End: 44-84-1615yalnnqrxzgYxedtvf D Gundlach PT Work Phone: noms [facility] PTComment on above:Thoracic spine pain (Primary Dx); Thoracic spondylosisStart: 07-01-2024 End: 05-40-9102Mpmmpd flowsheetMatthew D Gundlach PT Work Phone: noms [facility] PTStart: 07-01-2024 End: 62-65-6632Gcbrtg flowsheetMatthew D Gundlach PT Work Phone: n[facility] PTStart: 07-01-2024 End: 13-65-5863Vefmzx outpatient visit 15 minutesCorey Brian DO Work Phone: noms [facility] OBComment on above:Complex ovarian cyst; Pelvic pain in female; Encounter to discuss test resultsStart: 07-01-2024 End: 78-90-7851igzbfestasFejdzxy D Gundlach PT Work Phone: noms [facility] PTComment on above:Thoracic spine pain (Primary Dx); Thoracic spondylosisStart: 06-27-2024 End: 15-44-9853pgkdefeewzCMFGMZO D GUNDLACHNot AvailableStart: 06-27-2024 End: 13-66-3084crenhghrkbPdxvmsm D Gundlach PT Work Phone: noms [facility] PTComment on above:Thoracic spine pain (Primary Dx); Thoracic spondylosisStart: 06-27-2024 End: 51-80-0571Leakrm flowsheetBrittany Wengerd PTANOMS SWS PTStart: 06-27-2024 End: 03-79-2329Uayyne flowsheetBrittany Wengerd PTANOMS [facility] PTStart: 06-20-2024 End: 34-68-8007kgerhdtvnyWtiostf D Gundlach PT Work Phone: [facility] PTComment on above:Thoracic spine pain (Primary Dx); Thoracic spondylosisStart: 06-20-2024 End: 86-48-1407Piwunb flowsheetMatthew D Gundlach PT Work Phone: [facility] PTStart: 06-20-2024 End: 60-27-3681Ayxcja flowsheetMatthew D Gundlach PT Work Phone: [facility] PTStart: 06-18-2024 End: 91-49-1297aoqdrcomjhAkljifh D Gundlach PT Work Phone: [facility] PTComment on above:Thoracic spine pain (Primary Dx); Thoracic spondylosisStart: 06-18-2024 End: 14-47-1518Szueeg flowsheetMatthew D Gundlach PT Work Phone: [facility] PTStart: 06-18-2024 End: 91-39-5852Uiotbf flowsheetMatthew D Gundlach PT Work Phone: [facility] PTStart: 06-12-2024 End: 06-13-7153Abuxun flowsheetMatthew D Gundlach PT Work Phone: [facility] PTStart: 06-12-2024 End: 58-33-6974Wsjqub flowsheetMatthew D Gundlach PT Work Phone: [facility] PTStart: 06-12-2024 End: 43-20-8395Ovegcdfyk Result EncounterCorey Brian DO Work Phone: [facility] External Department UnsolicitedStart: 06-12-2024 Non-patient / Non-visitCorey Brian DO Work Phone: [facility] Work Phone: Start: 06-12-2024 End: 01-74-4240mksqsohgidOrppmfo D Gundlach PT Work Phone: noms [facility] PTComment on above:Thoracic spine pain (Primary Dx); Thoracic spondylosisStart: 06-10-2024 End: 75-07-2758Obyfsk flowsheetMatthew D Gundlach PT Work Phone: noms SWS PTStart: 06-10-2024 End: 39-94-2340Azybor flowsheetMatthew D Gundlach PT Work Phone: noms SWS PTStart: 06-10-2024 End: 50-51-1584bhotlbazwqHeytltu D Gundlach PT Work Phone: noms [facility] PTComment on above:Thoracic spine pain (Primary Dx); Thoracic spondylosisStart: 06-05-2024 End: 94-13-2390wkiozmsgbvNkvilbf D Gundlach PT Work Phone: noms [facility] PTComment on above:Thoracic spine pain (Primary Dx); Thoracic spondylosisStart: 06-05-2024 End: 73-92-5911Costwo flowsheetMatthew D Gundlach PT Work Phone: noms SWS PTStart: 06-05-2024 End: 84-75-7392Ryunkc flowsheetMatthew D Gundlach PT Work Phone: noms SWS PTStart: 06-03-2024 End: 50-49-3268Fddsnz flowsheetMatthew D Gundlach PT Work Phone: noms SWS PTStart: 06-03-2024 End: 46-10-3349Psoyxu flowsheetMatthew D Gundlach PT Work Phone: [facility] PTStart: 06-03-2024 End: 35-56-5906ulswmwulcfAhaxmxp D Gundlach PT Work Phone: [facility] PTComment on above:Thoracic spine pain (Primary Dx); Thoracic spondylosisStart: 05-31-2024 End: 58-25-5457Tojywl flowsheetMatthew D Gundlach PT Work Phone: [facility] PTStart: 05-31-2024 End: 27-11-2620Iqszkg flowsheetMatthew D Gundlach PT Work Phone: [facility] PTStart: 05-31-2024 End: 09-26-9610fezagoaqfsDlqavpp D Gundlach PT Work Phone: [facility] PTComment on above:Thoracic spine pain (Primary Dx); Thoracic spondylosisStart: 05-29-2024 End: 11-52-5428Nnpyrp flowsheetMatthew D Gundlach PT Work Phone: [facility] PTStart: 05-29-2024 End: 11-79-0115Vamtqx flowsheetMatthew D Gundlach PT Work Phone: [facility] PTStart: 05-29-2024 End: 26-40-5881dpmsjuobuwNvxkzee D Gundlach PT Work Phone: [facility] PTComment on above:Thoracic spine pain (Primary Dx); Thoracic spondylosisStart: 05-24-2024 End: 29-71-9442Gbjwja flowsheetMatthew D Gundlach PT Work Phone: [facility] PTStart: 05-24-2024 End: 71-11-5777Eptlaq flowsheetMatthew D Gundlach PT Work Phone: [facility] PTStart: 05-24-2024 End: 55-65-9047hhtayxeevcEidonsw D Gundlach PT Work Phone: [facility] PTComment on above:Thoracic spine pain (Primary Dx); Thoracic spondylosisStart: 05-22-2024 End: 01-59-0721Idqaez flowsheetMatthew D Gundlach PT Work Phone: [facility] PTStart: 05-22-2024 End: 51-50-7974Bqhlhk flowsheetMatthew D Gundlach PT Work Phone: [facility] PTStart: 05-22-2024 End: 64-47-2219sxravqphpaGqxsumu D Gundlach PT Work Phone: [facility] PTComment on above:Thoracic spine pain (Primary Dx); Thoracic spondylosisStart: 05-21-2024 End: 79-62-0386Tebnmvqrt Result EncounterCorey Brian DO Work Phone: [facility] External Department UnsolicitedStart: 05-21-2024 End: 97-64-2216Qniemfugx Result EncounterCorey Brian DO Work Phone: [facility] External Department UnsolicitedStart: 05-17-2024 End: 51-68-1610Fdtghz flowsheetMatthew D Gundlach PT Work Phone: [facility] PTStart: 05-17-2024 End: 94-48-2669Cjtedr flowsheetMatthew D Gundlach PT Work Phone: NOYU SWS PTStart: 05-17-2024 End: 01-07-1276cvpzwwtwayVqktvnv D Gundlach PT Work Phone: noms SWS PTComment on above:Thoracic spine pain (Primary Dx); Thoracic spondylosisStart: 05-14-2024 End: 69-49-2722vpghubulbzYLQZV SKINNERFacility:[facility] Hospitaltart: 05-14-2024 End: 30-03-1411Rlahhrk encounter procedureMegan Landa CAR PICK UP DRIVER.DIRECTOR OF INSTRUCTIONAL TECHNOLOGY Work Phone: spine InstituteComment on above:Thoracic spondylosis (Primary Dx); 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; Epigastric painStart: 05-13-2024 End: 65-64-2152Audgwm flowsheetLinda DEVINE Work Phone: noms [facility] OBStart: 05-13-2024 End: 72-06-8225Tbiykz flowsheetLinda DEVINE Work Phone: noms [facility] OBStart: 05-13-2024 End: 59-88-0250Gcqqzbplr Result EncounterLinda DEVINE Work Phone: noms External Department UnsolicitedStart: 05-13-2024 End: 04-63-4915Brynkcxny encounterMeapolinar Landa APRN.DIRECTOR OF INSTRUCTIONAL TECHNOLOGY Work Phone: spine InstituteComment on above:Patient QuestionStart: 05-13-2024 End: 93-64-2586Yjcfrmd encounter procedureLinda DEVINE Work Phone: noMS HealthcareStart: 05-13-2024 End: 71-26-2887Mrjenqbd preventive med est patient 40-64yrsAmy Gerardo DEVINE Work Phone: noms [facility] OBComment on above:Well woman exam with routine gynecological exam; Other screening mammogram; Surgical menopauseStart: 92-58-3862Kmd-patient / Non-visitPHYSICIAN NO [facility] Work Phone: Start: 05-02-2024 End: 52-51-3355Xfcjvodso to same day surgery centerPHYSICIAN NO [facility] Work Phone: Start: 05-02-2024 End: 40-52-2859jkrvybcksiZDHOSZFIJ NO [facility] Work Phone: Start: 05-02-2024 End: 45-23-1040Kgvchnw encounter procedurePHYSICIAN NO [facility] [address] Work Phone: Start: 05-02-2024 End: 06-31-8202ntjqdigzbgMXJCKKEQL NO [facility] Work Phone: Start: 05-01-2024 End: 11-34-1407kodttycsmdPADTJPDPH NO [facility] Work Phone: Start: 05-01-2024 End: 95-80-1039Yrfjpur encounter procedurePHYSICIAN NO [facility] Gastroenterology Work Phone: Start: 04-25-2024 End: 88-24-6588oipxciufxpFqsx LashnerFacility:[facility] Hospitaltart: 04-25-2024 End: 04-81-0967Dxfzrevame hospital visit by physicianCt [facility] CcRadiology Ct ScanComment on above:Abdominal pain, unspecified abdominal location [R10.9] Start: 04-10-2024 End: 61-41-8292Tzyiluw encounter procedureKyle Zhu MD Work Phone: GastroenterologyComment on above:Abdominal pain, unspecified abdominal location (Primary Dx)Start: 04-10-2024 End: 66-31-5144pdbttdhzksPmlc LashnerFacility:[facility] Hospitaltart: 04-08-2024 End: 71-68-4425emkelwmsboXVSKMGO [facility] Start: 04-02-2024 End: 92-49-6349Fadqdif encounter procedureAffinity Health Partners [facility] Work Phone: Start: 04-02-2024 End: 09-28-0763eeozbtciwdDdnjqoxl [facility] Work Phone: Start: 04-02-2024 End: 84-17-3204Flsjleyv ReferredAUGUSTON Genevieve Feng Work Phone: [facility] [address] Work Phone: Start: 03-22-2024 End: 23-70-5630Yvekkb outpatient new 45 minutesMatthew C Ary DO Work Phone: noms SWS FM 230Comment on above:Generalized abdominal pain (Primary Dx); Gastroesophageal reflux disease, unspecified whether esophagitis presentStart: 03-21-2024 End: 51-15-6284rutmpqoeltRgyyvkjnsLakeHealth Beachwood [facility] Work Phone: Start: 03-21-2024 End: 97-10-5972Alnkwuv encounter procedureAffinity Health Partners Physician GroupTrinity Health [facility] Work Phone: Start: 03-18-2024 End: 30-37-6692kjhydfztraOTVUZJMSt. Mary's Medical Center Start: 03-18-2024 End: 37-74-3766fnrrkwywhzGFOUZTFSt. Mary's Medical Center Start: 12-94-8064Qco-patient / Non-visitAffinity Health Partners Physician GroupWashington [facility] Work Phone: Start: 03-05-2024 End: 33-85-8340Cgcgbb Elva DEVINE Work Phone: noms BCP OBStart: 03-05-2024 End: 57-75-2849Fcwyxk Elva DEVINE Work Phone: noms BCP OBStart: 03-05-2024 End: 29-43-0245Txquzz outpatient visit 15 minutesLinda DEVINE Work Phone: noms BCP OBComment on above:Encounter to discuss test results; Pelvic pain in femaleStart: 84-72-7281Jpk-patient / Non-visitAffinity Health Partners Physician GroupWooster [facility] OutPt Work Phone: Start: 03-04-2024 End: 24-22-5179sxbfcjiuodZSJMVJDSt. Mary's Medical Center Start: 02-26-2024 End: 96-98-5362ywgditteekKwndvuaiiLakeHealth [facility]wood [facility] Work Phone: Start: 02-26-2024 End: 99-91-7734Ixzykxz encounter procedureAffinity Health Partners Physician [facility] Work Phone: Start: 02-19-2024 End: 95-25-7800gsymgyfcvgMeokskwciGlenbeigh Hospital Work Phone: Start: 02-19-2024 End: 38-03-4155Xsuhmzj encounter procedureAffinity Health Partners Physician [facility] Work Phone: Start: 47-39-3608Mulvenc encounter statusTrumbull Regional Medical Centertart: 10-12-2023 End: 95-19-7930eghcxsxubhYqvtwixwoGlenbeigh Hospital Work Phone: Start: 10-12-2023 End: 16-36-8653Yqnvqdxsw for general adult medical examination without abnormal findingsTrumbull Regional Medical Centertart: 10-12-2023 End: 82-07-9526Qgvpfmj encounter procedureAffinity Health Partners Physician [facility] Work Phone: Start: 09-14-2023 End: 57-20-8397Aovynxt encounter procedureAffinity Health Partners Physician [facility] Work Phone: Start: 06-21-2023 End: 91-56-2708fkergdfkoeQRLII SKINNERFacility:[facility] Hospitaltart: 06-21-2023 End: 51-49-7048Kgdcxou encounter procedureMeapolinar Landa CAR PICK UP DRIVER.DIRECTOR OF INSTRUCTIONAL TECHNOLOGY Work Phone: spine InstituteComment on above:Right leg pain (Primary Dx); Numbness and tingling of right lower extremity; Piriformis syndrome, rightStart: 03-23-2023 End: 97-85-5980mlcrqvsgvxLS Agustin Mortensen Work Phone: [facility] Work Phone: Start: 03-23-2023 End: 60-73-0471Cmmwgeb encounter procedureMD Agustin Mortensen Work Phone: [facility] [address] Work Phone: Start: 03-20-2023 End: 65-12-5637Grdxgvc encounter procedureJ Chava Melgar MD Work Phone: plastic SurgeryComment on above:Encounter for cosmetic surgery (Primary Dx)Start: 10-20-2022 End: 16-03-6821ecqcetvdjiKR AGUSTIN MORTENSENFacility:Y6Vtcxh: 10-11-2022 End: 46-82-8394qotjvchyeoGTYDG D [facility][NOTE 3]Facility:H1 Procedures DateProcedureProcedure DetailPerforming ClinicianStart: 05-15-2025 End: 84-37-2472KGVFREZVPJS SKIN LESIONNatalie A Felter CAR PICK UP DRIVER-DIRECTOR OF INSTRUCTIONAL TECHNOLOGY Work Phone: Start: 84-52-4569CJIWAL TESTOSTERONE FREE/TOT EQUILIB Teressa Tello DIAMOND SANDER Work Phone: Start: 31-87-2251WAV CBC WITH AUTO DIFFCorey Brian DO Work Phone: Start: 03-15-4919JP CHEST 2VCorey Brian DO Work Phone: Start: 95-18-3330TOS 12-LEADCorey Brian DO Work Phone: Start: 19-79-5314FXS CBC WITH AUTO DIFFCorey Brian DO Work Phone: Start: 67-06-6597LrpvabassixRamfdaji Wengerd PTAStart: 09-15-2922CAH LDHCorey Brian DO Work Phone: Start: 63-42-2879Hisxtuefrsgznzdp antigen ceaCorey Brian DO Work Phone: comment on above:Nonsmokers <3.9 Smokers <5.6Roche Diagnostics Electrochemiluminescence Immunoassay(ECLIA)Values obtained with different assay methods or kitscannot be used interchangeably. Results cannot beinterpreted as absolute evidence of the presence orabsence of malignant disease.Performed at: [address] [id number] Director: Kiko Mendoza PhD, Phone: [phone]: 05-21-2024 US PELVIS W/ TRANSVAGINALCorey Brian DO Work Phone: Start: 44-78-1863YXT,APTIMA HPV,AGE GDLNLinda DEVINE Work Phone: Start: 56-43-8699RoebpoxstgtdvegnubkcnimdosBKWBLSWWC NO FAMILYStart: 75-53-8974LD thoracic spine wo conPHYSICIAN NO FAMILYStart: 04-72-5554UA pre/post mri xrayPHYSICIAN NO FAMILYStart: 19-84-1299Ny abdomen & pelvis w/contrast Daniella Zhu MD Work Phone: Start: 17-49-2039Xzopqpul identified in Urine by CulturePHYSICIAN NO FAMILYStart: 89-95-0774EkosvusvsywKqg Ramey PA Work Phone: Start: 84-12-5296IP pre/post mri xrayMD Agustin Mortensen Work Phone: Start: 75-24-9718AH lumbar spine wo conMD Agustin Mortensen Work Phone: Plan of Treatment DateCare ActivityDetailAuthorStart: 57-47-7421Guzmyylgo for malignant neoplasm of cervixNOMS HealthcareStart: 85-07-0252Znpuojfi ScreeningDiabetes Screening [facility] Hospitaltart: 05-18-2026 End: 26-02-4181Bqqbdjl encounter /09/2026 4:00 PM EST Office Visit [facility] [address] [place] [phone] Bethany Chang, CAR PICK UP DRIVER-DIRECTOR OF INSTRUCTIONAL TECHNOLOGY [address] [place] [address] NOMBj Perez DermatologyStart: 80-67-5008Acwgwzzp ScreeningDiabetes ScreeningMemorial Health System Selby General Hospitaltart: 08-01-2025 Screening for malignant neoplasm of breastMammogramNOMS HealthcareStart: 05-15-2025 End: 70-24-5894Cvjrpbh encounter procedureNOMS BCP OBComment on above:Arrived Start: 04-03-2025 End: 58-70-9894Myonsbo encounter ufeosoojk93/25/2025 9:00 AM EDT Office Visit [facility] [address] [place] [address] Teressa Tello, DIAMOND SANDER [address] [place] [address] NOMS Nguyễn OBGYNStart: 35-16-0248ATHWD-19 Vaccine ( season)COVID-19 Vaccine ( season)NOMS HealthcareStart: 12-69-0163Mohqhpdvn vaccinationInfluenza Vaccine (#1)[facility] HealthcareStart: 10-24-2024 End: 89-95-8213Vvfhjgz encounter vnhnctpyz25/17/2025 8:40 AM EDT Office Visit [facility] [address] [place] [address] Bethany Chang, CAR PICK UP DRIVER-DIRECTOR OF INSTRUCTIONAL TECHNOLOGY [address] [place] [address] NOMS SWS DERMStart: 09-09-2024 End: 71-90-8705Rjzdwwa encounter fdqfslclu95/03/2025 3:40 PM EST Office Visit [facility] [address] [place] [address] Martín Torres DO [address] [place], [place] [phone] ArrivedNOMS BCP OBComment on above:ArrivedStart: 08-06-2024 End: 95-24-6245ussmjpshykLXPA SWS PTComment on above:ArrivedStart: 08-02-2024 End: 77-97-6112pxuohniiwx47/24/2025 7:30 AM EST Treatment [facility] PT [address] [place] [address] Sweta Alaniz, SAFETY TRAINER ArrivedNOMS SWS PTComment on above:ArrivedStart: 08-01-2024 End: 99-19-3280gqeefysazr51/23/2025 3:00 PM EST Treatment [facility] PT [address] [place] [address] Blanka Mercer, PT [address] [place] [address] NOMS SWS PTStart: 08-01-2024 End: 43-01-7404Pijlgtmunvca / ancillary services viphsqexjm61/23/2025 8:30 AM EST Ancillary Procedure [facility] [place] [address] [place] [address] VFLO IMAGING SANDUSKYStart: 07-31-2024 End: 83-21-8912Duggitz encounter procedureNOMS BCP OBComment on above:Arrived Start: 07-31-2024 End: 18-97-2344Zxnklandcjha / ancillary services txpnpretyc76/22/2025 1:00 PM EST Ancillary Procedure [facility] [address] [place], [place] [address] [place] [address] JJIH BCP OBStart: 07-30-2024 End: 64-77-0776wlgivxmfor84/21/2025 4:00 PM EST Treatment [facility] PT [address] [place] [address] Blanka Mercer, PT [address] [place] [address] NOMS SWS PTStart: 07-25-2024 End: 97-54-3703ofwkvxhygeKHIU SWS PTComment on above:ArrivedStart: 07-23-2024 End: 62-92-5407uyojvhbzshNQCZ SWS PTComment on above:ArrivedStart: 07-18-2024 End: 72-97-6159zhdammxqotHATK SWS PTComment on above:ArrivedStart: 07-16-2024 End: 40-29-5039rojdaaaecp45/07/2025 4:30 PM EST Treatment [facility] S[facility] PT [address] [place] [address] Blanka Mercer, PT [address] [place] [address] NOMS SWS PTStart: 07-11-2024 End: 71-28-8568lrmhrdzcweOJUA SWS PTComment on above:ArrivedStart: 07-08-2024 End: 00-76-8274xgvgvtogmiLLWJ SWS PTComment on above:ArrivedStart: 07-01-2024 End: 84-75-5467RA for pregnancyUS PELVIS-TRANSVAG IF INDICATED Imaging Routine Complex ovarian cyst Pelvic pain in female Expected: 07/01/2024 (Approximate), Expires: 07/01/2025[facility] Work Phone: comment on above:Expected: 07/01/2024 (Approximate), Expires: 07/01/2025Start: 07-01-2024 End: 39-98-7055Qfkbdle encounter icxyfmdhs42/23/2024 8:30 AM EST Office Visit [facility] [address] [place] [address] Martín Torres, DO [address] [place] [address] NOMS BCP OBStart: 07-01-2024 End: 98-88-1747dsfubfvtjzQUAY SWS PTComment on above:ArrivedStart: 06-27-2024 End: 87-37-8129vltkjmizzhYIRU SWS PTComment on above:ArrivedStart: 06-25-2024 End: 97-91-5508otkleoubus30/17/2024 5:00 PM EST Treatment [facility] PT [address] [place] [address] Blanka Mercer, PT [address] [place] [address] NOMS SWS PTStart: 41-90-3845Aeylpmjhl for malignant neoplasm of colon [facility]tart: 06-20-2024 End: 34-64-3023crhkcbhqvnDQZZ SWS PTComment on above:ArrivedStart: 06-18-2024 End: 40-47-6624xaxrxcblcc93/10/2024 5:00 PM EST Treatment [facility] PT [address] [place] [address] Blanka Mercer, PT [address] [place] [address] NOMS SWS PTStart: 83-20-6962Nbeogadrd for malignant neoplasm of breast [facility]: 06-12-2024 End: 58-72-6511wlflmmntqjSQEN SWS PTComment on above:ArrivedStart: 06-10-2024 End: 83-64-1468ljcdgazdzrBKCW SWS PTComment on above:ArrivedStart: 06-05-2024 End: 88-61-8217ybuuqstulkLFRM SWS PTComment on above:ArrivedStart: 06-03-2024 End: 19-19-0650hnsmcoqjtwQCEO SWS PTComment on above:ArrivedStart: 06-03-2024 End: 99-93-3710Usnagyc encounter pbunttrik26/25/2024 8:00 AM EST Office Visit [facility] [place] [address] [place] [address] [place] [address] Marsha Landa, CAR PICK UP DRIVER.DIRECTOR OF INSTRUCTIONAL TECHNOLOGY [address] [place] [address] back painSpine InstituteComment on above:back pain Start: 05-31-2024 End: 56-56-6285pgyvwtadqxAYIG SWS PTComment on above:ArrivedStart: 05-29-2024 End: 76-13-2862jrvnohlifvMBTG SWS PTComment on above:ArrivedStart: 05-24-2024 End: 77-85-3127frdkavfomf18/15/2024 7:00 AM EST Treatment [facility] PT [address] [place] [address] Blanka Mercer, PT [address] [place] [address] NOMS SWS PTStart: 05-22-2024 End: 35-14-6471hmuxfraonu06/13/2024 7:30 AM EST Treatment [facility] PT [address] [place] [address] Blanka Mercer, PT [address] [place] [address] [facility] PTStart: 05-20-2024 End: 88-61-3656Lkuwtudksvsz / ancillary services yfsrfbywof08/11/2024 11:00 AM EST Ancillary Procedure [facility] [address] [place] [address] [place], [place] [address] NOMS BCP OBStart: 05-17-2024 End: 11-20-4350kbmcbqufkt67/08/2024 12:30 PM EST Evaluation [facility] PT [address] [place] [address] Blanka Mercer, PT [address] [place] [address] ArrivedNOKAISER FOUNDATION [facility] PTComment on above:ArrivedStart: 05-14-2024 End: 16-25-3167Pdzqswd encounter uwhijaqit51/05/2024 3:30 PM EST Office Visit Spine [address] [place] [address] Marsha Landa, CAR PICK UP DRIVER.DIRECTOR OF INSTRUCTIONAL TECHNOLOGY [address] [place] [address] tightness in my upper abdomen and under my ribsSpine InstituteComment on above:tightness in my upper abdomen and under my ribsStart: 05-13-2024 End: 49-41-0084TL Breast - bilateral ScreeningBilateral screening mammogram Imaging Routine Well woman exam with routine gynecological exam Otherscreening mammogram Expected: 05/13/2024, Expires: 07/13/2025[facility] Work Phone: comment on above:Expected: 05/13/2024, Expires: 07/13/2025Start: 05-13-2024 End: 43-56-1676Uezdbcl encounter procedureNOMS BCP OBComment on above:Arrived Start: 27-17-7578GjwobemczTrumbull Regional Medical Centertart: 87-87-3380EM Thoracic spineTrumbull Regional Medical Centertart: 22-48-4518MG thoracic spine wo con MR thoracic spine wo [facility]: 61-45-0951BB pre/post mri xrayXR pre/post mri xrayTrumbull Regional Medical Centertart: 05-02-2024 End: 24-57-3556FyksfywjjTrumbull Regional Medical Centertart: 04-25-2024 End: 76-49-4574Wkjmgso encounter procedureRadiology Ct ScanComment on above:CT ENTEROGRAPHY W IVCONStart: 04-16-2024 End: 69-66-1397Xarejvckwcbs / ancillary services rasbuqegsp90/08/2024 8:30 AM EDT Ancillary Procedure [facility] [address] [place] [address] [place] [address] NOMS BCP OBStart: 04-10-2024 End: 29-86-028138495287-qjjjaiuauybgwj D3 [Mass/volume] in Serum or PlasmaMckitrick HospitalComment on above:Expected: 04/10/2024, Expires: 07/10/2024Start: 04-10-2024 End: 07-10-2024 reactive protein [Mass/volume] in Serum or PlasmaLoman ClinicComment on above:Expected: 04/10/2024, Expires: 07/10/2024Start: 04-10-2024 End: 01-97-7330Ikijmmyapfhhh metabolic 2000 panel - Serum or PlasmaLouis Stokes [facility] Work Phone: Comment on above:Expected: 04/10/2024, Expires: 07/10/2024Start: 25-47-0777Wuumjcjg identified in Urine by CultureTrumbull Regional Medical Centertart: 66-03-2712Mgmmi-19 Vaccine ( season) Covid-19 Vaccine ()[facility]: 58-03-3496Qxfcmbumm vaccinationInfluenza Vaccine (#1)[facility] Hospitaltart: 03-05-2024 End: 06-86-3285VT for pregnancyUS PELVIS-TRANSVAG IF INDICATED Imaging Routine Pelvic pain in female Expected: 03/05/2024 (Approximate), Expires: 03/05/2025 [facility] Work Phone: comment on above:Expected: 03/05/2024 (Approximate), Expires: 03/05/2025Start: 43-38-2482Qwhvlgsh Vaccine (2 of 2)Shingrix Vaccine (2 of 2)[facility] Hospitaltart: 05-99-0319Boyrlsqyd vaccinationMckitrick Hospital Start: 42-16-9041RDCPLGRHOM ASSESSMENTDEPRESSION ASSESSMENTMckitrick Hospital Start: 66-75-4969VSEISLWN VACCINE (1 of 2)SHINGRIX VACCINE (1 of 2)[facility]tart: 21-99-0601RLORUGKOO (FIT-DNA)COLOGUARD (FIT-DNA)[facility] Start: 15-81-8978MvcgnpxarvuAHVWSUZCNWQGfhrstkog ClinicStart: 12-07-2015 COLORECTAL CANCER SCREENINGCOLORECTAL CANCER SCREENINGMemorial Health System [facility] Hospitaltart: 50-99-4477ML COLONOGRAPHYCT COLONOGRAPHYCleRiverside Methodist Hospitaltart: 12-07-2015 DIABETES SCREENDIABETES SCREENMemorial Health System Selby General Hospitaltart: 43-56-8687Isbdrbtr ScreeningDiabetes ScreeningMemorial Health System [facility] General Hospitaltart: 99-19-4815HJLCU OCCULT BLOOD FECAL OCCULT BLOODMemorial Health System Selby General Hospitaltart: 75-88-6859Ssgsv panelLipid Screening [facility] Hospitaltart: 51-73-0189ZHYLT SCREENLIPID SCREENMemorial Health System [facility] Hospitaltart: 62-67-2025Sxohspogl for malignant neoplasm of colonMemorial Health System Selby General Hospitaltart: 69-85-2442CKXKLTKQREBTUJLWZYPAOZZZTVCqjfhyhzp ClinicStart: 65-17-6871Dzlghuenvbj MAMMOGRAMMemorial Health System [facility] Hospitaltart: 72-51-9011PGR TESTINGHPV TESTINGMckitrick Hospital Start: 45-12-5561Tvqsdumjj for malignant neoplasm of cervixHPV TestingMemorial Health System Selby General Hospitaltart: 67-34-9836PHQ TESTINGPAP TESTINGMemorial Health System Selby General Hospitaltart: 12-07-1991 Screening for malignant neoplasm of cervixMemorial Health System Selby General Hospitaltart: 1989 Hepatitis B Vaccine (1 of 3 - 19+ 3-dose series)Hepatitis B Vaccine (1 of 3 - 19+ 3-dose series)[facility]: 19-95-3770Eqbjs microalbumin profile [facility] Hospitaltart: 95-16-1097Ybovozl ScreeningAnxiety ScreeningMemorial Health System [facility]by General Hospitaltart: 97-96-3223Dgzhfnlkjt ScreeningDepression ScreeningMckitrick Hospital Start: 19-30-0621CQABCBIMK C SCREENINGHEPATITIS C SCREENINGMckitrick Hospital Start: 08-30-3295Axadudzky C screeningHepatitis C ScreeningMckitrick Hospital Start: 49-81-7675RRK SCREENINGHIV SCREENINGMemorial Health System [facility] Hospitaltart: 35-57-5884RRL screeningHIV ScreeningMemorial Health System Selby General Hospitaltart: 02-46-1988CVWBF-19 VACCINE (#1) COVID-19 VACCINE (#1)[facility]: 00-25-5259KKGOUNCBM B (1 of 3 - 3- dose series)HEPATITIS B (1 of 3 - 3-dose series)[facility]: 80-76-4041Naujhyawz B Vaccine (1 of 3 - 3-dose series)Hepatitis B Vaccine (1 of 3 - 3-dose series)[facility]: 04-87-6898Lzbkidxvz for malignant neoplasm of colonNOMA HealthcareCardiovascular stress testingNorwalk Memorial HospitalComprehensive metabolic 1999 panel - Serum or PlasmaNorwalk Memorial HospitalComprehensive metabolic 2000 panel - Serum or Plasma [facility] HospitalCT Abdomen and Pelvis WO and W contrast IVCT abdomen pelvis w and wo IV contrast Imaging Routine Generalized abdominal pain Ordered: 03/24/2024[facility] [employer] Work Phone: Comment on above:Ordered: 03/24/2024 End: 71-93-9923FE Small bowel W contrast PO and W contrast IVCT ENTEROGRAPHY W IVCON Radiology Routine Abdominal pain, unspecified abdominal location 1 Occurrences starting 04/10/2024 until 5C[facility] ClinicComment on above:1 Occurrences starting 04/10/2024 until 05/10/2025EKG 12 channel panel [facility] HospitalHolter monitor [facility] HospitalPatient EducationKnow your [facility] Work Phone: TESTOSTERONE, FREETESTOSTERONE, FREE Lab Routine Hormone disorder Ordered: 02/20/2025[facility] Work Phone: comment on above:Ordered: 02/20/2025Testosterone, free, totalTestosterone, free, total Lab Routine Hormone disorder Ordered: 02/20/2025[facility] HealthcareComment on above:Ordered: 02/20/2025THIN PREP TIS PAP AND HR HPV DNATHIN PREP TIS PAP AND HR HPV DNA Pathology and Cytology Routine Well woman exam with routine gynecological exam Ordered: 05/13/2024[facility] HealthcareComment on above:Ordered: 05/13/2024US Abdomen [facility] HospitalUS PelvisNorwalk Memorial HospitalXR Chest 2 [facility] Immunizations Immunization DateImmunizationNotesCare RydetellCpjpfsxa81-31-1276gpesxb vaccine [facility]04-27-2021COVID-19 Ad26.COV2.S (Anabell)[facility] Payers DatePayer CategoryPayerPolicy [id number] Health [id number] [id number] 2.16840.1.997953.3.57[id number] 2.16840.1.723713.3.579.[id number] 2.0.1.414878.3.57[id number] 2..1.070540.3.57[id number] 2..1.361818.3.579.2.063870-98-7605Mmneixn7508740 2..1.168198.3.579.2.026083-11-9232Hdvpstm7094586 2..1.579463.3.579.2.791466-24-7307Nmogkxa8634194 2..1.409306.3.579.2.566145-89-2210Vhfruww0908566 2..1.090626.3.579.2.346317-70-3807Gdqqiqu2983418 2..1.486436.3.579.2.754549-51-0666Kqbpqfd8579679 2..1.881016.3.579.2.688901-50-7769Lnrrxnz6903514 2..1.560666.3.579.2.534506-26-7619Unlabqw5605872 2.0.1.613556.3.579.2.730367-05-8361Ebprwlc6244971 2.16.840.1.959417.3.579.2.344567-20-6292Gdhqsbd9887741 2..1.226296.3.579.2.670453-79-1885Dsybztl5157749 2..1.510705.3.579.2.051795-71-1594Siwgacw8960590 2..1.964443.3.579.2.603220-53-0405Szkhghs7003191 2..1.140554.3.579.2.453215-57-0856Uctzucb9471333 2..1.710154.3.579.2.438787-97-9874Egkapku1638897 2..1.891385.3.579.2.524226-65-3497Jqowcgv2358163 2..1.013162.3.57[id number] 2..1.205181.3.579.2.418258-10-2406Lkklzst4011033 2..1.873250.3.579.2.902599-39-0065Xuqkswt0707778 2..1.366366.3.579.2.[id number] 2..1.801946.3.579.2.239619-61-1376Yejowea6519791 2..1.270394.3.579.2.712114-77-6144Lnkclei6661335 2..1.382876.3.579.2.768314-17-0530Xlofogb8181761 2..1.327619.3.579.[id number] 2.0.1.706831.3.579.2.881169-24-8723Zsvinzo4435018 2.0.1.240804.3.579.2.564108-31-2755Ghkpdsk72791680267895-04-4273Zphnhse [id number] 2.0.1.166122.3.579.2.665Atndecg46124088 2.0.1.240854.3.579.2.709Llgrgfc54012422 2.0.1.695799.3.579.2.531 [id number] 2.0.1.677163.3.579.2.531 Social History DateTypeDetailFacilityTobacco smoking status NHISTobacco smoking consumption unknownMemorial Health System Selby [facility] Hospitaltart: 03-14-2023 End: 71-86-2763Nqfaziv of Social functionMemorial Health System Selby General Hospitaltart: 03-14-2023 End: 96-60-3430Pbso Deprivation IndexMemorial Health System Selby General Hospitaltart: 60-96-3929Uktbskys Score (1-100), lower number is lower cvkp84LvckpidgkMemorial Health System Selby General Hospitaltart: 19-01-8475Koh Assigned At BirthNot on fileMemorial Health System Selby General Hospitaltart: 37-82-6417Wes Assigned At BirthFemaleFLakeHealth TriPoint Medical Centertart: 10-12-2023 End: 61-30-6625Rhylqzs smoking status NHISNever smoked tobacco (finding) [facility]: 04-10-2024 End: 20-69-8270Orbzvok use and exposureSmokeless tobacco non-userMemorial Health System Selby General Hospitaltart: 67-47-3803Spjbxgtjb beverage intakeEx-drinker (finding)[facility] Hospitaltart: 03-22-2024 End: 19-08-9945Ycxnrvyfs beverage intakeCurrent drinker of alcohol (finding)[facility] HealthcareDo you belong to any clubs or organizations such as sabianist groups, unions, fraternal or athletic groups, or [...] got money to buy more.Never trueNOMS HealthcareStart: 82-50-8316Ujqwrxz Comment1-2 drinks less than monthly in the past year, Caffeine intake: 1-2 cups per day coffeeNOMS HealthcareStart: 78-89-8327Dbyszy identityIdentifies as female gender (finding)[facility] Start: 08-31-2024 End: 02-70-3660YzvXrpbyn (finding)[facility] Goals DatePatient GoalDesired Activity/State Clinical Notes 01-06-2015 to 05-15-2025 Note Date & EwzqLiqkKjehcuxz90-33-5817 History of Present illness Narrative* Bethany Chang, CAR PICK UP DRIVER-DIRECTOR OF INSTRUCTIONAL TECHNOLOGY - 05/15/2025 11:10 AM EST Skin Check [...] Area, Left Upper Back, Right Anterior Mandible [place] and brown stuck on verrucous scaly papule [...] limited to risks of scarring, darker or bullard operator pigmentary changes, recurrence, incomplete removal and infection. [...] limited to risks of scarring, darker or bullard operator pigmentary changes, recurrence, incomplete removal and infection. [...] Next Visit: 1 year documented in this encounterRay County Memorial HospitalHsebvwcjxu90-11-4895 History of Present illness Narrative* Teressa Tello NP - 04/03/2025 9:00 AM EDT Reason for Appointment: Patient ID: Socorro Gallagher is a 54 y.o. female who presents for No chief complaint on file. Patient presents today via telephone call for a telehealth appointment. Patients Phone #: [phone] (mobile) Date: 04/03/2025 Time: 9:18 AM of [...] she declines referral at this time to [facility] as levels are within normal range. She reports that her sister was recently diagnosed with cancer and she has been feeling increased anxiety she would like meto prescribe her lorazepam for situational acute anxiety Documented by Teressa Tello NP on behalf of: Teressa Tello NP documented in this encounterRay County Memorial HospitalOixwjqrlyq98-00-9736 History of Present illness Narrative* Teressa Tello [...] nursing note reviewed. Exam conducted with a director media present. Vitals: Estimated body mass index is [...] of: Teressa Tello NP documented in this encounterRay County Memorial HospitalPeesoyhejc15-41-6427 Evaluation note* Diagnosis Onset Date Resolution Status Admit Date Upper abdominal pain acuteMarch 2024 9:18am [facility] Work Phone: 1(242) 348-835903-03-2025 History of Present illness Narrative* Teressa Tello [...] nursing note reviewed. Exam conducted with a director media present. Vitals: Estimated body mass index is [...] of: Martín Torres DO documented in this encounterRay County Memorial HospitalYqstytcate38-59-4668 History of Present illness Narrative* Blanka Mercer, [...] On hold with HEP. documented in this encounterRay County Memorial HospitalKtcomqfrbq00-18-5046 History of Present illness Narrative* Jacque Romo - 07/31/2024 2:10 PM EST Reason for Appointment: Patient ID: Socorro Gallagher is a 53 y.o. female who presents for Pre-op Visit Patient presents today for Pre Op appointment. Patient is scheduled to undergo Da Chavez assisted Diagnostic Laparoscopy, possible ALEXANDRA, possible FOE, possible BSO on 08/30/[address] Torres at [facility]. MEDICATIONS Current Outpatient Medications Medication Instructions [...] nursing note reviewed. Exam conducted with a director media present. Vitals: Estimated body mass index is [...] reviewed, and patient is to proceed to [facility] OR. Follow Up: Patient is to follow up between 1-2 weeks post operative to assess proper healing and recovery fromprocedure. Documented by Camelia Frey LPN on behalf of: Martín Torres DO documented in this encounterRay County Memorial HospitalJhkuotduws82-46-7586 History of Present illness Narrative* Blanka Mercer, [...] Continue PT per POC. documented in this [facility]01-02-2025 History of Present illness Narrative* Blanka Mercer, [...] Continue PT per POC. documented in this [facility]12-30-2024 History of Present illness Narrative* Blanka Mercer, [...] Continue PT per POC. documented in this encounterRay County Memorial HospitalRrctfzwdco06-02-6391 History of Present illness Narrative* Yola Hylton [...] nursing note reviewed. Exam conducted with a director media present. Vitals: Estimated body mass index is [...] for surgical management. Patient to discuss with Estimator Paperboard Boxes prior to leaving office today. Patient given order to have another ultrasound done prior to surgery in August 2024. Documented by Yola Hylton LPN on behalf of: Martín Torres DO documented in this encounterRay County Memorial HospitalLmriwztspu34-41-4110 History of Present illness Narrative* Blanka Mercer, [...] Continue PT per POC. documented in this encounterRay County Memorial HospitalHtqwtxmszh24-53-8863 History of Present illness Narrative* Blanka Mercer, [...] Continue PT per POC. documented in this [facility]12-12-2024 History of Present illness Narrative* Blanka Mercer, [...] Continue PT per POC. documented in this encounterRay County Memorial HospitalFkoywqkoiy64-92-2968 History of Present illness Narrative* Blanak Mercer, PT - 06/18/2024 5:00 PM EST [...] Continue PT per POC. documented in this encounterRay County Memorial HospitalUfrluziatl34-75-9172 History of Present illness Narrative* Blanka Mercer, [...] Continue PT per POC. documented in this [facility]12-02-2024 History of Present illness Narrative* Blanka Mercer, [...] Continue PT per POC. documented in this [facility]11-27-2024 History of Present illness Narrative* Blanka Mercer, [...] Continue PT per POC. documented in this encounterRay County Memorial HospitalJfmunzcnhj20-67-1019 History of Present illness Narrative* Blanka Mercer, PT - 06/03/2024 8:00 AM EST [...] Continue PT per POC. documented in this [facility]11-22-2024 History of Present illness Narrative* Blanka Mercer, [...] Continue PT per POC. documented in this encounterRay County Memorial HospitalXklwxufzal90-06-9485 History of Present illness Narrative* Blanka Mercer, [...] Continue PT per POC. documented in this [facility]11-15-2024 History of Present illness Narrative* Blanka Mercer, [...] Continue PT per POC. documented in this [facility]11-13-2024 History of Present illness Narrative* Blanka Mercer, [...] Continue PT per POC. documented in this encounterRay County Memorial HospitalFhlwqldevv72-77-5860 History of Present illness Narrative* Blanka Mercer, [...] Went to see PCP and eventually saw coffee supervisor, gastroenterology. Cardiac heart cath was negative. CT [...] Please sign below. 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 Reviewed following up with her touch up painter hand in regards to possible thoracic spine TALA. She was advised that if touch up painter hand does not perform this procedure that I [...] As needed Imaging Ordered: None SIGNATURE: Marsha Ladna APRN.CNP PATIENT NAME: Socorro Gallagher DATE: May 14, 2024 TIME:3:14 PM [facility]-2024 NoteHNO ID: [id number] Author: MARSHA LANDA APRN.CNP Service: ? 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 pantoprazo (more content not included)...[facility]11-04-20[facility] Telephone encounter Note* Telephone Encounter - Dana Lozano RN - 05/13/2024 12:55 PM EST Neuro SPINE CARE COORDINATION QUICK NOTE Called patient to let her know that we received the thoracic MRI images from 05/02 along with the report. They have been uploaded to her chart. [facility]11-04-2024 Miscellaneous Notes* Telephone Encounter - Dana [...] yet and to get a CD from [facility] to bring to the appointment with Marsha tomorrow. She verbalized understanding. I also sent an email to the film library to see if they have anything pending for the patient. * Telephone Encounter - Genevivee Barbosa - 05/13/2024 12:05 PM EST Socorro is calling Marsha Landa APRN.RUBEN today to ask if you can see her MRI results from [facility], which are for tomorrow's appointment. They told her they were sent to the Imaging Library, but when she tries to call she just gets disconnected. Please advise. Patient has been identified by name and birthdate. Duration of symptoms: N/A Person calling: self Call patient at: at home [phone] (home) [phone] (cell) Was an appointment scheduled: No Closing statement: Results or non-symptom based questions: Thank you for calling [facility], your call will be returned within the next business day. Genevieve Villafuerte documented in this encounterMckitrick Hospital11-04-2024 Telephone encounter Note * Telephone Encounter - Dana Lozano RN - 05/13/2024 12:26 PM EST Neuro SPINE CARE COORDINATION QUICK NOTE Spoke with patient and advised her that we don't have any Thoracic MRI images or report yet and to get a CD from [facility] to bring to the appointment with Marsha tomorrow. She verbalized understanding. I also sent an email to the film library to see if they have anything pending for the patient. [facility]11-04-[facility]24 Telephone encounter Note* Telephone Encounter - Genevieve Barbosa - 05/13/2024 12:05 PM EST Socorro is calling Marsha Landa APRN.DIRECTOR OF INSTRUCTIONAL TECHNOLOGY today to ask if you can see her MRI results from [facility], which are for tomorrow's appointment. They told her they were sent to the Imaging Library, but when she tries to call she just gets disconnected. Please advise. Patient has been identified by name and birthdate. Duration of symptoms: N/A Person calling: self Call patient at: at home [phone] (home) [phone] (cell) Was an appointment scheduled: No Closing statement: Results or non-symptom based questions: Thank you for [facility], your call will be returned within the next business day. Genevieve Villafuerte [facility]11-04-2024 History of Present illness Narrative* SYBIL [...] nursing note reviewed. Exam conducted with a director media present. Vitals: Estimated body mass index is [...] behalf of: SYBIL Ortiz documented in this encounterRay County Memorial HospitalChtpwqgmkq54-48-6368 History and physical note Author Lady Vásquez [facility] May 02, 2024 10:58amNote Date/TimeOct2023 10:18[place] [address] Gastroenterology H&P Signed Patient: Yuri Gallagher MR#: [id number] : 1970 Acct:[id number] Age/Sex: 53 / F Adm Date: 4 Loc: Room: Type: [facility] Attending Dr: Lady Vásquez DO Copies to: Lady Vásquez, DO Genevieve Feng APRN, DIRECTOR OF INSTRUCTIONAL TECHNOLOGY~ Date of Service: 05/02/2024 HISTORY & PHYSICAL: [...] signed by Lady Vásquez DO> 05/02/24 1058 [facility] Work Phone: [phone] Procedure noteNorwalk Memorial Hospital10-17-2024 History of Present illness Narrative* Cheyanne Toribio, [...] PATIENT PRESENTS WITH AN IMPLANTABLE OR ATTACHED CASE ASSISTANT: No RADIOLOGY DEPARTMENT: CT; Exam(s) Completed: Abdomen/Pelvis PERIPHERAL IV DATA: Site assessment: Clean,Dry and Intact, Site disposition Discontinued SIGNED BY: RT Lisa(R) April 25, 2024 2:16 PM documented in this encounterMckitrick Hospital10-17-2024 NoteHNO ID: [id number] Author: CHEYANNE TORIBIO RN Service: Nursing Author [...] Gallagher DATE: April 25, 2024 TIME: 12:53 [facility]10-17-2024 NoteHNO ID: [id number] Author: RAQUEL ROSAS RT(R) Service: ? Author [...] PATIENT PRESENTS WITH AN IMPLANTABLE OR ATTACHED CASE ASSISTANT: No RADIOLOGY DEPARTMENT: CT; Exam(s) Completed: Abdomen/Pelvis PERIPHERAL IV DATA: Site assessment: Clean,Dry and Intact, Site disposition Discontinued SIGNED BY: RT Lisa(R) April 25, 2024 2:16 [facility]10-02-2024 NoteHNO ID: [id number] Author: KYLE ZHU MD Service: ? Author [...] by others. Kyle Zhu MD Date: April 10[facility] History of Present illness Narrative* Kyle [...] Date: April 10, 2024 documented in this encounterMckitrick Hospital09-30-2024 NoteCardiology Clinic Note Chief Complaint: New [...] (TTE) complete Result Date: 03/18/2024 1 1 [facility] Heart Station [address] [place] [address] [phone] (fax) Echocardiogram-[facility] Name: YURI GALLAGHER Study Date: 03/18/2024 09:23 AM B/P: / HR: 68 bpm Date of : 1970 Location: [facility] Height: 63 in. Age: 53 [...] IVSd, 2D 0.71 c (more content not included)...[facility]09-13-2024 History of Present illness Narrative* Blanka [...] therapist. 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 Stress test was done and heart cath (Monday). [employer] Supervisor does not believe pain she is having [...] Did not see any kidney stones. Labs ([facility]) were done as well. SUBJECTIVE: CURRENT MEDICATIONS: [...] Depression: Not at risk (06/19/2023) [facility] PHQ-2 PHQ-2 score: 0 [...] which included preparing to see the patient, dthh-fo-bzsu patient care including obtaining/reviewing history and performing [...] AGUIRRE D.O. This note was entered using [employer] copilot. Grammatical and dictation errors maybe present in translation *I have reviewed and reconciled the history and medication list with the patient today* documented in this encounterRay County Memorial HospitalZleanshbgs59-95-4816 NotePatient: Socorro Gallagher Procedure Information Date/Time: 03/18/24 1030 Procedure: Coronary angiography (Left) - PC APPROVED w possible PCI Location: [facility] CLERK OF SCALES 3 / [facility] (Cath) Providers: Seda Douglass MD [...] discussed with attending and fellow. Additional Equipment RequestsLima [facility] Hospital08-27-2024 History of Present illness Narrative* SYBIL [...] behalf of: SYBIL Ortiz documented in this encounterRay County Memorial HospitalWiptdfocrz62-08-1753 [facility] NoteCardiology Clinic Note Chief Complaint: New patient [...] hesitate to contact cardiolog (more content not included)...[facility]12-13-2023 History of Present illness Narrative* Marsha Landa APRN.DIRECTOR OF INSTRUCTIONAL TECHNOLOGY - 06/21/2023 8:00 AM EST Images from [...] under the care of pain management in [facility] where she recently underwent a right gluteal nerve block without improvement in symptoms. She states that at postinjection follow-up she was offered a piriformis injection but is reluctant to proceed. She reports that she recently had an EMG completed. EMG results were not available at time of today's appointment. 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 Nonsmoker Pain localized to right [...] prednisone Physical Therapy: Spring 2022 attended at [facility] , she states sessions were [...] Normal Limits Logroll: Negative Tinel's test: Negative [place]'s test: Negative Prone extension Negative Neuro Tests: [...] 2023 TIME: 7:51 AM documented in this encounterMckitrick Hospital12-13-2023 NoteHNO ID: [id number] Author: Marsha Landa APRN.CNP Service: ? Author [...] under the care of pain management in [facility] where she recently underwent a right gluteal nerve block without improvement in symptoms. She states that at postinjection follow-up she was offered a piriformis injection but is reluctant to proceed. She reports that she recently had an EMG completed. EMG results were not available at time of today's appointment. 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 : Denies chapa (more content not included)...[facility] 03-20-2023 History of Present illness Narrative* [...] flanks. Oscar Melgar MD documented in this encounterMckitrick Hospital04-13-2023 NoteCONSULTATION CONSULTATION DATE: 10/20/2022 TO: Agustin [...] our patients to inform us about any sour-nqd-dizdard medications or herbal remedies/nutritional supplements/alternative remedies. 2. [...] treatment options with their primary care provider.[facility] CenterRjkhcqll92-59-3200 NotePROCEDURE: XR ANKLE RT MIN 3 VIEWS, [...] Electronically authenticated by: CHRISTINA ROBLERO Date: 2022-10-11 11:33[facility]04-04-2023 NotePROCEDURE: XR ANKLE RT MIN 3 [...] Electronically authenticated by: CHRISTINA ROBLERO Date: 2022-10-11 11:33[facility]06-30-2015 Evaluation note* Diagnosis Onset Date Resolution Status Anxiety January 06, 2015 acuteAnxietyJune cutePalpitationsacuteScreening for lipid disorders acuteScreening for metabolic disorderacuteScreening, deficiency anemia, iron acuteWellness examinationacute [facility] Work Phone: Evaluation note* Diagnosis Encounter for cosmetic surgery- Primary Other plastic surgery for unacceptable cosmetic appearance documented [facility] encounter [facility] [place] noteNo assessment information availableBucyrus Community Hospital Work Phone: Evaluation note* Diagnosis Right leg pain- Primary Pain in limb Numbness and tingling of right lower extremity Piriformis syndrome, right documented in this encounter [facility] note* Diagnosis Onset Date Resolution Status Chest tightness acuteDizzinessacuteFamily history of heart disease in male family member before age 55acutePalpitationsaWadsworth-[facility] Work Phone: Evaluation note* Diagnosis Onset Date Resolution Status Chest tightness acuteDizzinessacuteFamily history of heart disease in male family member before age 55acutePalpitationsacuteAbdominal painacuteBloatingacute [facility] Work Phone: Evaluation note* Diagnosis Onset Date Resolution Status Chest tightness acuteDizzinessacuteFamily history of heart disease in male family member before age 55acutePalpitationsacuteAbdominal painacuteBloatingacuteAnxietyJune cuteChest wall painacuteMyocardial bridgeacuteUTI (urinary tract infection) acute [facility] Work Phone: Evaluation note* Diagnosis Abdominal pain, unspecified abdominal location- Primary documented in this encounter [facility] HospitalEvalubay[facility] [place] note* Diagnosis Abdominal pain, unspecified abdominal location documented in this encounter [facility] HospitalEvalubay[facility] [place] note* Diagnosis Onset Date Resolution Status Chest tightness acuteDizzinessacuteFamily history of heart disease in male family member before age 55acutePalpitationsacuteAbdominal painacuteBloatingacuteAnxietyJune cuteChest wall painacuteMyocardial bridgeacuteUTI (urinary tract infection) acuteUpper abdominal painacute [facility] Work Phone: Evaluation note* Diagnosis Well woman exam with routine gynecological exam Routine gynecological examination Other screening mammogram Surgical menopause documented in [facility] encounter [facility] HealthcareEvaluation [facility]* Diagnosis Thoracic spondylosis- Primary Thoracic spondylosis without myelopathy 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 Displacement of thoracic intervertebral disc without myelopathy Epigastric pain Abdominal pain, epigastric documented in this [facility]* Diagnosis Thoracic spine pain- Primary Pain in thoracic spine Thoracic spondylosis documented in [facility] Healthcare[facility]* Diagnosis Thoracic spine pain- Primary Pain in thoracic spine Thoracic spondylosis documented in this encounter [facility]* Diagnosis Thoracic spine pain- Primary Pain in thoracic spine Thoracic spondylosis documented in this encounter [facility]* Diagnosis Thoracic spine pain- Primary Pain in thoracic spine Thoracic spondylosis documented in this [facility]* Diagnosis Thoracic spine pain- Primary Pain in thoracic spine Thoracic spondylosis documented in this encounter [facility] HealthcareEvaluation note* Diagnosis Generalized abdominal pain- [...] Other specified counseling documented in this encounter [facility] HealthcareEvaluation note* Diagnosis Hormone disorder- Primary Unspecified endocrine disorder Postmenopausal HRT (hormone replacement therapy) Need for prophylactic hormone replacement therapy (postmenopausal) documented in this encounter [facility] HealthcareEvaluation note* Diagnosis Postmenopausal HRT (hormone [...] Inflamed seborrheic keratosis documented in this encounter [facility] HealthcareEvaluation note* Diagnosis Onset Date Resolution Status Admit Date Pre-op evaluation acuteNovember 2024 8:22am [facility] Work Phone: Retrgh for referral (narrative)No reason for referral information availableWvumedicine [facility] Work Phone: Reason for visit Narrative* Rehabilitation - Outpatient (Routine) - AuthorizedSpecialtyDiagnoses / ProceduresReferred By ContactReferred To ContactPhysical Therapy Diagnoses Back pain Procedures DC PHYSICAL THERAPY EVALUATION LOW COMPLEX 20 MINS Blanka Mercer, PT [address] [place] [address] Phone: tel: fax: Blanka Mercer, PT [address] [place] [address] Phone: tel: fax: Referral IDStatusReasonStart DateExpiration DateVisits RequestedVisits [id number] Consult and Treat [facility] HealthcareReason for visit Narrative* Rehabilitation - Outpatient (Routine) - AuthorizedSpecialtyDiagnoses / ProceduresReferred By ContactReferred To ContactPhysical Therapy Diagnoses Back pain Procedures DC PHYSICAL THERAPY EVALUATION LOW COMPLEX 20 MINS Blanka Mercer, PT [address] [place] [address] Phone: tel: fax: Blanka Mercer, PT [address] [place] [address] Phone: tel: fax: Referral IDStatusReasonStart DateExpiration DateVisits RequestedVisits [id number] Consult and Treat [facility] HealthcareReason for visit Narrative* Rehabilitation - Outpatient (Routine) - AuthorizedSpecialtyDiagnoses / ProceduresReferred By ContactReferred To ContactPhysical Therapy Diagnoses Low back pain, unspecified Procedures DC THERAPEUTIC PX 1/> AREAS EACH 15 MIN EXERCISES Marsha Landa MD [address] [place] [address] Phone: tel: fax: Blanka Mercer, PT [address] [place] [address] Referral IDStatusReasonStart DateExpiration DateVisits RequestedVisits [id number]/[id number] [facility] HealthcareReason for visit Narrative* Rehabilitation - Outpatient (Routine) - AuthorizedSpecialtyDiagnoses / ProceduresReferred By ContactReferred To ContactPhysical Therapy Diagnoses Low back pain, unspecified Procedures DC THERAPEUTIC PX 1/> AREAS EACH 15 MIN EXERCISES Marsha Landa MD [address] [place] [address] Phone: tel: fax: Blanka Mercer, PT [address] [place] [place] [address] Referral IDStatusReasonStart DateExpiration DateVisits RequestedVisits [id number]/[id number] [facility] Summary Purpose Family History No [...] W/CONTRAST Kyle Zhu MD [address] [place] [address] [place] [address] Referral IDStatusReasonStart DateExpiration DateVisits RequestedVisits [id number] Auto-Generated Referral /[id number] IDStatusReasonStart DateExpiration DateVisits RequestedVisits [id number] Auto-Generated Referral /[id number] / ProceduresReferred By ContactReferred To ContactREHAB AND SPORTS THERAPY INS Diagnoses Generalized abdominal pain Thoracic spondylosis 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 Procedures CONSULT TO PHYSICAL THERAPY PHYSICAL THERAPY EVALUATION HIGH COMPLEX 45 MINS Marsha Landa, CAR PICK UP DRIVER.DIRECTOR OF INSTRUCTIONAL TECHNOLOGY [address] [place] [address] [facility] [place] [address] [place] [address] Referral IDStatusReasonStart DateExpiration DateVisits RequestedVisits [id number] Review Auto-Generated Referral [id number] / ProceduresReferred By ContactReferred To ContactRadiology Diagnoses Generalized abdominal pain Procedures CT abdomen pelvis w and wo IV contrast Blanka Aguirre, DO [address] [place] [address] Referral IDStatusReasonStart DateExpiration DateVisits RequestedVisits [id number] Review/ Additional Source Comments INFORMATION SOURCE (unrecogn ized section and content) DATE CREATED AUTHOR 09/08/2020 [facility] DATE CREATED AUTHOR AUTHOR'S ORGANIZ ATION 10/27/2022 [facility] DATE CREATED AUTHOR AUTHOR'S ORGANIZ ATION 05/16/2024 [facility] DATE CREATED AUTHOR AUTHOR'S ORGANIZ ATION 05/27/2024 [facility] DATE CREATED AUTHOR AUTHOR'S ORGANIZ ATION 09/04/2024 [facility] DATE CREATED AUTHOR AUTHOR'S ORGANIZ ATION 05/17/2025 [facility] EPIC Source Comments (unrecognize d section and content) In the event this informatio n is protected by the Federal Confidentiality of Alcohol and Drug Abuse Patient Records regulations: The Federal rules restrict any use of the information to criminally investigate or prosecute any alcohol or drug abuse patient.[facility] HospitalIn the event this information is protected by the Federal Confidentiality of Alcohol and Drug Abuse Patient Records regulations: The Federal rules restrict any use of the information to criminally investigate or prosecute any alcohol or drug abuse patient.[facility] HospitalIn the event this information is protected by the Federal Confidentiality of Alcohol and Drug Abuse Patient Records regulations: The Federal rules restrict any use of the information to criminally investigate or prosecute any alcohol or drug abuse patient.[facility] HospitalIn the event this information is protected by the Federal Confidentiality of Alcohol and Drug Abuse Patient Records regulations: The Federal rules restrict any use of the information to criminally investigate or prosecute any alcohol or drug abuse patient.[facility] HospitalIn the event this information is protected by the Federal Confidentiality of Alcohol and Drug Abuse Patient Records regulations: The Federal rules restrict any use of the information to criminally investigate or prosecute any alcohol or drug abuse patient.[facility] HospitalIn the event this information is protected by the Federal Confidentiality of Alcohol and Drug Abuse Patient Records regulations: The Federal rules restrict any use of the information to criminally investigate or prosecute any alcohol or drug abuse patient.[facility] HospitalIn the event this information is protected by the Federal Confidentiality of Alcohol and Drug Abuse Patient Records regulations: The Federal rules restrict any use of the information to criminally investigate or prosecute any alcohol or drug abuse patient.[facility] HospitalIn the event this information is protected by the Federal Confidentiality of Alcohol and Drug Abuse Patient Records regulations: The Federal rules restrict any use of the information to criminally investigate or prosecute any alcohol or drug abuse patient.[facility] Reason for Visit (unrecogniz ed section and content) ReasonCommentsRadiology CTSpecialtyDiagnoses / ProceduresReferred By Contact Referred To ContactCT IMAGING Diagnoses Abdominal pain, unspecified abdominal location Procedures CT ENTEROGRAPHY W IVCON CT ABD & PELVIS W/CONTRAST Kyle Zhu MD [address] [place] [address] Ct Imaging [facility] Referral IDStatusReasonStart DateExpiration DateVisits RequestedVisits [id number] Auto-Generated Referral [id number]cyoxfAqk PatientLow Back Pain ReasonCommentsNew PatientPer CT small bowel polypReasonCommentsGynecologic Exam ReasonCommentsPatient QuestionReasonCommentsNew PatientThoracic back painReason CommentsBack UkhwNxcrcnUswjgidfYpihzj-zbZbrhadVxwbkdxyCkc-dc VisitReasonComments Post-op VisitReasonCommentsfollow up labs and ultrasoundComplex cystReason CommentsHormone therapy replacementReasonCommentsSkin CheckFollow-up Care Teams (unrecognized sec tion and content) Team Status: Active Member Role Status Dates Agustin Mortensen MD Primary Care Provider Active Team Status: Inactive Member Role Status Dates Agustin Mortensen MD Primary Care Provider Active Narendranterri Lakshmipathy , MDAttending ProviderActive Team Status: Active Member Role Status Dates Genevieve Feng APRN [employer]-C Primary Care Provider Active Team Status: Inactive Member Role Status Dates Agustin Mortensen MD Primary Care Provider Active Start: September 14, 2023 End: September 14, 2023Genevieve Feng APRN DIAMOND SANDER-CAttenhunter ProviderActive Start: September 14, 2023 End: September 14, 2023 Team Status: Inactive Member Role Status Dates Agustin Mortensen MD Primary Care Provider Active Start: October 12, 2023 End: October 12, 2023Genevieve Feng APRN [employer]OND SANDER-CAttenhunter ProviderActive Start: October 12, 2023 End: October 12, 2023 Team Status: Inactive Member Role Status Dates Genevieve Feng APRN [employer]-C Primary Care Provider, Attending Provider Active Start: February 19, 2024 End: February 19, 2024 Team Status: Inactive Member Role Status Dates Genevieve Feng APRN [employer]-C Primary Care Provider, Attending Provider Active Start: February 26, 2024 End: February 26, 2024 Team Status: Active Member Role Status Dates Genevieve Feng APRN [employer]-C Primary Care Provider Active Start: March 132023 Seda Douglass MDAttending ProviderActiveStart: March 13, 2024 Team Status: Inactive Member Role Status Dates Genevieve Feng APRN [employer]-C Primary Care Provider, Attending Provider Active Start: March 21, 2024 End: March 21, 2024 Team Status: Active Member Role Status Dates Genevieve eFng APRN [employer]-C Primary Care Provider Active Start: March 04, 2024 Sandeep Obrien DOAttending ProviderActiveStart: March 04, 2024 Team Status: Inactive Member Role Status Dates Genevieve Feng APRN [employer]-C Primary Care Provider, Attending Provider Active Start: April 02, 2024 End: April 02, 2024 Team Status: Inactive Member Role Status Dates Genevieve Feng APRN [employer]-C Attending Provider Act star Start: April 02, 2024 End: April 02, 2024 Team Status: Inactive Member Role Status Dates Genevieve Feng APRN [employer]-C Attending Provider Act star Start: April 02, 2024 End: April 02HYSICIAN NO FAMILYPrimary Care ProviderActiveStart: April 02, 2024 End: April 02, 2024 Team Status: Inactive Member Role Status Dates Lady Vásquez DO Attending Provider Active St art: May 01, 2024 End: May 01, 2024Genevieve Feng APRN DIAMOND SANDER-CPrimary Care Provider ActiveStart: May 01, 2024 End: May 01, 2024 Team Status: Active Member Role Status Dates Genevieve Feng APRN [employer]-C Primary Care Provider Active Start: April Jose Guadalupe Costa MDAttending ProviderActiveStart: May 02, 2024 Team Status: Inactive Member Role Status Dates Genevieve Feng APRN [employer]-C Primary Care Provider Active Start: April End: May 02meredith Felix Ly , DOAttending ProviderActiveStart: May 02, 2024 End: May 02, 2024 Team Status: Active Member Role Status Dates Genevieve Feng APRN [employer]-C Primary Care Provider Active Start: April Lady Vásquez , DOAttending Provider, Other ProviderActiveStart: May 02, 2024 Team Status: Inactive Member Role Status Dates Genevieve Feng APRN [employer]-C Primary Care Provider Active Start: April End: May 02, 2024Narendranterri Torresmistevenson , MDAttending ProviderActive Start: May 02, 2024 End: May 02, 2024Team MemberRelationshipSpecialtyStart DateEnd Date Agustin Mortensen MD [address] [place] [facility] [address] PCP - GeneralFamily Medicine03/16/23Team MemberRelationshipSpecialtyStart DateEnd Date Agustin Mortensen MD [address] [place] [facility] [address] PCP - GeneralFamily Medicine03/16/23Team MemberRelationshipSpecialtyStart DateEnd Date Agustin Mortensen MD [address] [place] [facility] [address] PCP - GeneralFamily Medicine03/16/23Team MemberRelationshipSpecialtyStart DateEnd Date Agustin Mortensen MD [address] [place] [facility] [address] PCP - GeneralFamily Medicine03/16/23 Blanka Aguirre DO [address] [place] [address] PCP - [facility] [employer]07/10/1711Team MemberRelationshipSpecialty Start DateEnd Date Agustin Mortensen MD [address] [facility] [place] [address] [facility]/16/23 Blanka Aguirre DO [address] [place] [address] PCP - [facility] [place] [employer]07/10/1711Team MemberRelationshipSpecialty Start DateEnd Date Agustin Mortensen MD [address] [facility] [place] [address] PCP - [facility] Medicine03/16/23 Blanka Aguirre DO [address] [place] [address] PCP - [facility] [employer]07/10/1711Team MemberRelationshipSpecialty Start DateEnd Date Agustin Mortensen MD [address] [place] [place] [address] [facility]/16/23 Blanka Aguirre DO [address] [place] [address] PCP - [facility] [employer]07/10/1711Team MemberRelationshipSpecialty Start DateEnd Date Agustin Mortensen MD [address] [facility] [address] PCP - GeneralFamily Medicine03/16/23 Blanka Aguirre DO [address] [place] [address] PCP - [facility] [employer]07/10/1711Team MemberRelationshipSpecialty Start DateEnd Date Agustin Mortensen MD [address] [facility] [address] PCP - [facility] Medicine03/16/23 Blanka Aguirre, [address] [place] [address] PCP - [facility] [employer]07/10/1711Team MemberRelationshipSpecialty Start DateEnd Date Agustin Mortensen MD [address] [place] [facility] [address] [facility]03/16/23 Blanka Aguirre, [address] [place] [address] PCP - [facility] [employer]07/10/1711Team MemberRelationshipSpecialty Start DateEnd Date Agustin Mortensen MD [address] [facility] [address] PCP - [facility] Medicine03/16/23 Blanka Aguirre, [address] [place] [address] PCP - [facility] [place] [employer]/Team MemberRelationshipSpecialty Start DateEnd Date Agustin Mortensen MD [address] [facility] [place] [address] PCP - GeneralFamily Medicine03/16/23 Blanka Aguirre, [address] [place] [address] PCP - [facility] [place] [employer]/Team MemberRelationshipSpecialty Start DateEnd Date Agustin Mortensen MD [address] [place] [facility] [address] PCP - GeneralFamily Medicine03/16/23Team MemberRelationshipSpecialtyStart DateEnd Date Agustin Mortensen MD [address] [place] [facility] [address] PCP - GeneralFamily Medicine03/16/23Team MemberRelationshipSpecialtyStart DateEnd Date Agustin Mortensen MD [address] [facility] [address] PCP - GeneralFamily Medicine03/16/23Team MemberRelationshipSpecialtyStart DateEnd Date Agustin Mortensen MD [address] [facility] [address] PCP - GeneralFamily Medicine03/16/23 Blanka Aguirre, [address] [facility] [address] [place] [address] PCP - [facility] [place] [employer]07/10/1711Team MemberRelationshipSpecialty Start DateEnd Date Agustin Mortensen MD [address] [facility] [place] [address] PCP - GeneralFamily Medicine03/16/23 Blanka Aguirre DO [address] [place] [address] PCP - [facility] [place] [employer]07/10/1711Team MemberRelationshipSpecialty Start DateEnd Date Agustin Mortensen MD [address] [facility] [address] PCP - GeneralFamily Medicine03/16/23 Blanka Aguirre DO [address] [place] [address] PCP - [facility] [place] [employer]07/10/1711Team MemberRelationshipSpecialty Start DateEnd Date Agustin Mortensen MD [address] [facility] [address] PCP - GeneralFamily Medicine03/16/23 Blanka Aguirre DO [address] [place] [address] PCP - [facility] [place] [employer]07/10/1711Team MemberRelationshipSpecialty Start DateEnd Date Agustin Mortensen MD [address] [facility] [address] PCP - GeneralFamily Medicine03/16/23 Blanka Aguirre DO [address] [place] [address] PCP - [facility]07/10/1711 Team Status: Active Member Role Status Dates Genevieve Feng APRN [employer]-C Primary Care Provider Active Start: June Martín Torres DOAttending ProviderActiveStart: June 12, 2024 Team Status: Active Member Role Status Dates Genevieve Feng APRN [employer]-C Primary Care Provider Active Start: August Martín Torres DOAttending ProviderActiveStart: August 15, 2024 Team Status: Active Member Role Status Dates Genevieve Feng APRN [employer] Primary Care Provider Active Start: August 302024 [...] 2024 End: September 25, 2024Genevieve Feng APRN [employer] SANDER-CPrimary Care ProviderActive Start: September 25, 2024 End: September 25, 2024 Team Status: Inactive Member Role Status Dates Genevieve Feng APRN [employer]-C Primary Care Provider, Attending Provider Active Start: September 25, 2024 End: September 25, 2024Team MemberRelationshipSpecialtyStart DateEnd Date Agustin Mortensen MD [address] [facility] [place] [address] PCP - [facility]03/16/23 Blanka Aguirre DO [address] [place] [address] PCP - [facility] [employer]/Te MemberRelationshipSpecialty Start DateEnd Date Agustin Mortensen MD [address] [facility] [place] [address] PCP - GeneralFamily Medicine03/16/23 Blanka Aguirre DO [address] [place] [address] PCP - [facility] [employer]07/10/1711Team MemberRelationshipSpecialty Start DateEnd Date Agustin Mortensen MD [address] [facility] [place] [address] [facility]/16/23 Blanka Aguirre DO [address] [place] [address] PCP - [facility] [employer]07/10/1711Team MemberRelationshipSpecialty Start DateEnd Date Agustin Mortensen MD [address] [facility] [place] [address] [facility]03/16/23 Blanka Aguirre DO [address] [place] [address] PCP - [facility] [employer]07/10/1711Team MemberRelationshipSpecialty Start DateEnd Date Agustin Mortensen MD [address] [facility] [place] [address] PCP - GeneralFamily Medicine03/16/23 Blanka Aguirre DO [address] [place] [address] PCP - [facility] [place] [employer]07/10/1711Team MemberRelationshipSpecialty Start DateEnd Date Agustin Mortensen MD [address] [facility] [place] [address] PCP - Generalmi Medicine03/16/23 Blanka Aguirre, [address] [place] [address] PCP - [facility] [place] [employer]07/10/1711Team MemberRelationshipSpecialty Start DateEnd Date Agustin Mortensen MD [address] [facility] [place] [address] PCP - Generalmily Medicine03/16/23 Blanka Aguirre, [address] [place] [address] PCP - [facility] [place] [employer]07/10/1711Team MemberRelationshipSpecialty Start DateEnd Date Agustin Mortensen MD [address] [facility] [place] [address] PCP - GeneralFamily Medicine03/16/23 Blanka Aguirre DO [address] [place] [address] PCP - [facility] [employer] [employer]07/10/1711Team MemberRelationshipSpecialty Start DateEnd Date Agustin Mortensen MD [address] [facility] [place] [address] [facility] - [facility] Blanka Aguirre DO [address] [facility] [address] [place] [address] PCP - Medical [facility]07/10/1711 Team Status: Active Member Role/Relationship Status Dates Genevieve Feng APRN [employer]-C Primary Care Provider Active Team Status: Active Member Role/Relationship Status Dates Genevieve Feng APRN [employer]-C Primary Care Provider Active Start: February 28, 2025 Teressa Tello APRN [employer] SANDER-CAttending ProviderActiveStart: February 28, 2025 Team Status: Inactive Member Role/Relationship Status Dates Genevieve Feng APRN [employer]-C Primary Care Provider Active Start: May End: May 16, 2025Genevieve Feng APRN [employer] SANDER-CAttending ProviderActive Start: May 16, 2025 End: May [...] BE BASED ON THE PRIMARY CLINICAL RECORDS. [facility] [email or web address] [facility] provides no warranty or guarantee of the accuracy or completeness of information in this document.
== END 2025-05-20 09:31 | disposition home or self-care (01) ==
LOC: CARD 05-27 04:35
PROVIDERS: PCP Nurse Practitioner Family; Visit Provider Nurse Practitioner Family
DX: Z01.818 Encounter for other preprocedural examination (principal); Z01.810 Encounter for preprocedural cardiovascular examination
CPT/HCPCS: 93005